=== PATIENT | female | born 1955 | race Caucasian/White ===

== ENCOUNTER 2018-01-28 18:51 | Emergency (ER) | payer OTHER ==
[~2018-01-28] VITALS: Ht 157.5 cm; Wt 51.0 kg
[~2018-01-28 18:51] MED LIST: ALL180 PO; ANT125 PO; ASPEC325 PO; BIOT1CAP3 PO; CHOL100010 PO; HYDR12.55 PO; INSDGI SC; MISCCAP80 PO; NVLGI SQ; PANT40TA PO; SCPTP TD
[2018-01-28 18:53] VITALS: TEMP 36.7
[2018-01-28 19:15] VITALS: O2SAT 97
[2018-01-28] MEDS ORDERED: FEXO1TAB46 PO (19:21)
[2018-01-28] MEDS ORDERED: NVLGI/PEN SC (19:21)
[2018-01-28] MEDS ORDERED: MECL1TAB40 PO (19:21)
[2018-01-28] MEDS ORDERED: SCOP1DIS17 TOP (19:21)
[2018-01-28] MEDS ORDERED: ASPI325T45 PO (19:21)
[2018-01-28] MEDS ORDERED: INSDGI SC (19:21)
--- NOTE | 2018-01-28 19:22 | EMERGENCY ROOM VISIT NOTE ---
History Report prepared by Christophe: Pallavi Shah Under the Supervision of: Dr. Grzegorz Olivas D.O. First contact with patient: 18:56 Chief Complaint: DIZZY Stated Complaint: HUMMING IN EARS,DIZZY Nursing Triage Summary: pt to the ED with c/o humming in her head which she thought was her cochlear implant and it kept getting louder so she took it off and it was still there. Sx started at 1730 and trouble with her balance all day no pain no numbness or tingling History of Present Illness The patient is a 62 year old female who presents to the Emergency Room with complaints of a constant humming in her left ear and dizziness beginning at 1730 today. She reports she was watching the TV, and the humming kept getting louder and louder. She thought it was her cochlear, so she took it out, but it was still there. She reports she checked her sugar and it was high. She stated that she had trouble with her balance earlier and feels very dizzy. She currently feels very weak and is having difficulty speaking. She denies any nausea or headaches. She states this does not feel like her vertigo episodes in the past. Source of History: patient Onset: 1730 today Position: ear (left), other (global) Quality: other (humming) Timing: constant Associated Symptoms: + weakness, No nausea Note: Positive difficulty speaking. Positive dizziness. Review of Systems See HPI for pertinent positives & negatives. A total of 10 systems reviewed and were otherwise negative. Past Medical & Surgical Medical Problems: (1) Acute cholecystitis (2) Diabetes (3) Heart disease (4) Hypertension (5) Schatzki's ring Family History Diabetes mellitus FH: heart disease FH: lung disease Hypertension Kidney disease Kidney stones Social History Smoking Status: Former Smoker Alcohol Use: none Drug Use: none Marital Status: Occupation Status: disabled Current/Historical Medications Scheduled Aspirin (Aspirin), 325 MG PO DAILY Fexofenadine Hcl (Evelyn), 180 MG PO DAILY Hydrochlorothiazide (Hydrochlorothiazide), 12.5 MG PO DAILY Insulin Aspart (Novolog Flexpen), 1 DOSE SC UD Insulin Glargine (Lantus), 20-25 UNITS SC QPM Pantoprazole (Protonix), 40 MG PO DAILY Scheduled PRN Meclizine Hcl (Meclizine Hcl), 12.5 MG PO Q6H PRN for Dizziness or Vertigo Scopolamine (Scopolamine), 1 MG TOP UD PRN for Dizziness or Vertigo Allergies Coded Allergies: Atorvastatin (Unverified Adverse Reaction, Unknown, UNKNOWN, 08/31/16) Prednisone (Unverified Adverse Reaction, Unknown, UNKNOWN, 08/31/16) Physical Exam Vital Signs Date Time Temp Pulse Resp B/P (MAP) Pulse Ox O2 Delivery O2 Flow Rate FiO2 01/28/18 21:37 72 20 149/79 98 Room Air 01/28/18 20:23 85 20 140/84 97 Room Air 01/28/18 20:07 73 01/28/18 19:15 97 Room Air 01/28/18 19:15 97 Room Air 01/28/18 18:53 36.7 102 20 174/108 97 Room Air Physical Exam GENERAL: Patient is awake, alert, and is mildly anxious appearing but comfortable. EYES: The conjunctivae are clear. The pupils are round and reactive. EARS, NOSE, MOUTH AND THROAT: The nose is without any evidence of any deformity. Mucous membranes are moist. Cochlear implant noted in the left posterior parietal scalp. NECK: The neck is nontender and supple. RESPIRATORY: Normal respiratory effort is noted there is no evidence of wheezing rhonchi or rales CARDIOVASCULAR: Regular rate and rhythm noted there no murmurs rubs or gallops normal S1 normal S2 GASTROINTESTINAL: The abdomen is soft. Bowel sounds are present in all quadrants. Abdomen is nontender MUSCULOSKELETAL/EXTREMITIES: There is no evidence of gross deformity full range of motion is noted in the hips and shoulders SKIN: There is no obvious evidence of any rash. There are no petechiae, pallor or cyanosis noted. NEUROLOGIC: Patient is awake alert and oriented x3 strength is symmetric, patellar tendon reflexes are 2+ bilaterally. No drift in the upper extremities. No facial droop was appreciated Medical Decision & Procedures ER Provider Diagnostic Interpretation: Radiology results as stated below per my review and radiologist interpretation: HEAD WITHOUT CONTRAST (CT) CLINICAL HISTORY: 62 years-old Female presenting with EVALUATE ALTERED MENTAL STATUS/WEAKNESS. TECHNIQUE: Multidetector CT imaging of the head was performed without the use of intravenous contrast. IV contrast: None. A dose lowering technique was used consistent with the principles of ALARA (as low as reasonably achievable). COMPARISON: Brain MR from 07/06/[address] head from 07/05/[address] DOSE (mGy.cm): The estimated cumulative dose is 537.48 mGy.cm. FINDINGS: Set Up [employer]ger topogram: Unremarkable. Streak artifact arising from the left cochlear implant mildly degrades image quality. Ventricles and sulci normal in size. Brain parenchyma normal in appearance with preserved villatoro-white differentiation. Calcifications noted in the bilateral basal ganglia, likely age-related changes. No mass effect or midline shift. No hemorrhage or acute territorial infarct. No extra-axial fluid collection. Paranasal sinuses and mastoid air cells clear. Calvarium intact. Left cochlear implant. IMPRESSION: 1. No acute intracranial abnormality. Electronically signed by: Fuentes Sevilla M.D. 01/28/2018 7:44 PM Dictated Date/Time: 01/28/2018 7:41 PM CHEST ONE VIEW PORTABLE CLINICAL HISTORY: 62 years-old Female presenting with EVALUATE ALTERED MENTAL STATUS/WEAKNESS. TECHNIQUE: Portable upright AP view of the chest was obtained. COMPARISON: 08/31/2016. FINDINGS: Atherosclerosis of the aortic arch. Cardiac silhouette normal in size. Lungs and pleural spaces clear. Osseous structures normal. Cholecystectomy clips noted. IMPRESSION: 1. No acute cardiopulmonary disease. Electronically signed by: Fuentes Sevilla M.D. 01/28/2018 7:24 PM Dictated Date/Time: 01/28/2018 7:23 PM Laboratory Results 01/28/18 19:25 Red Blood Count 4.65, Mean Corpuscular Volume 84.7, Mean Corpuscular Hemoglobin 29.7, Mean Corpuscular Hemoglobin Concent 35.0, Mean Platelet Volume 11.0, Neutrophils (%) (Auto) 49.7, Lymphocytes (%) (Auto) 40.1, Monocytes (%) (Auto) 6.3, Eosinophils (%) (Auto) 2.7, Basophils (%) (Auto) 0.9, Neutrophils # (Auto) 3.92, Lymphocytes # (Auto) 3.16, Monocytes # (Auto) 0.50, Eosinophils # (Auto) 0.21, Basophils # (Auto) 0.07 01/28/18 17:25 Test 01/28/18 17:25 01/28/18 19:25 01/28/18 19:49 01/28/18 20:50 Anion Gap 8.0 mmol/L (3-11) Est Creatinine Clear Calc Drug Dose 65.8 ml/min Estimated GFR () 106.5 Estimated GFR (Non- 91.9 BUN/Creatinine Ratio 23.6 (10-20) Calcium Level 9.3 mg/dl (8.5-10.1) Magnesium Level 2.0 mg/dl (1.8-2.4) Total Bilirubin 0.4 mg/dl (0.2-1) Direct Bilirubin 0.1 mg/dl (0-0.2) Aspartate Amino Transf (AST/SGOT) 13 U/L (15-37) Alanine Aminotransferase (ALT/SGPT) 19 U/L (12-78) Alkaline Phosphatase 101 U/L (45-117) Troponin I < 0.015 ng/ml (0-0.045) Total Protein 8.1 gm/dl (6.4-8.2) Albumin 4.1 gm/dl (3.4-5.0) Beta-Hydroxybutyric Acid 1.00 mg/dL (0.2-2.81) Thyroid Stimulating Hormone (TSH) 1.920 uIu/ml (0.300-4.500) White Blood Count 7.88 K/uL (4.8-10.8) Red Blood Count 4.65 M/uL (4.2-5.4) Hemoglobin 13.8 g/dL (12.0-16.0) Hematocrit 39.4 % (37-47) Mean Corpuscular Volume 84.7 fL (80-100) Mean Corpuscular Hemoglobin 29.7 pg (25-34) Mean Corpuscular Hemoglobin Concent 35.0 g/dl (32-36) Platelet Count 228 K/uL (130-400) Mean Platelet Volume 11.0 fL (7.4-10.4) Neutrophils (%) (Auto) 49.7 % Lymphocytes (%) (Auto) 40.1 % Monocytes (%) (Auto) 6.3 % Eosinophils (%) (Auto) 2.7 % Basophils (%) (Auto) 0.9 % Neutrophils # (Auto) 3.92 K/uL (1.4-6.5) Lymphocytes # (Auto) 3.16 K/uL (1.2-3.4) Monocytes # (Auto) 0.50 K/uL (0.11-0.59) Eosinophils # (Auto) 0.21 K/uL (0-0.5) Basophils # (Auto) 0.07 K/uL (0-0.2) RDW Standard Deviation 39.5 fL (36.4-46.3) RDW Coefficient of Variation 12.8 % (11.5-14.5) Immature Granulocyte % (Auto) 0.3 % Immature Granulocyte # (Auto) 0.02 K/uL (0.00-0.02) Prothrombin Time 10.6 SECONDS (9.0-12.0) Prothromb Time International Ratio 1.0 (0.9-1.1) Activated Partial Thromboplast Time 28.9 SECONDS (21.0-31.0) Partial Thromboplastin Ratio 1.1 Bedside Glucose 105 mg/dl (70-90) Venous Blood pH 7.38 (7.36-7.41) Venous Blood Partial Pressure CO2 52 mmHg (38.0-50.0) Venous Blood Partial Pressure O2 24 mmHg Venous Blood HCO3 31 mmol/L Venous Blood Oxygen Saturation < 60.0 % Venous Blood Base Excess 4.3 mEq/L Urine Color YELLOW Urine Appearance CLEAR (CLEAR) Urine pH 6.5 (4.5-7.5) Urine Specific Mcdonald 1.008 (1.000-1.030) Urine Protein NEG (NEG) Urine Glucose (UA) NEG (NEG) Urine Ketones NEG (NEG) Urine Occult Blood NEG (NEG) Urine Nitrite NEG (NEG) Urine Bilirubin NEG (NEG) Urine Urobilinogen NEG (NEG) Urine Leukocyte Esterase SMALL (NEG) Urine WBC (Auto) 1-5 /hpf (0-5) Urine RBC (Auto) 0-4 /hpf (0-4) Urine Hyaline Casts (Auto) 0 /lpf (0-5) Urine Epithelial Cells (Auto) 10-20 /lpf (0-5) Urine Bacteria (Auto) NEG (NEG) Laboratory results per my review. ECG Per My Interpretation Indication: weakness Rate (beats per minute): 88 Rhythm: other (atrial pacemaker) Findings: other (some [place] beats are noted, nonconductive pacer spikes are noted, no PVCs, inferior ST depressions noted) Comparison ECG Date: 09/10/16 Change: no significant change ED Course 1904: The patient was evaluated in room C9. A complete history and physical examination were performed. 2044: Upon reevaluation, the patient is feeling better. I discussed the results and treatment plan with her. She verbalized agreement of the treatment plan. She was discharged home. Medical Decision Prior records/ancillary studies reviewed. Triage Nursing notes reviewed. The patient's history was concerning for dizziness and vertigo. Differential diagnosis: Etiologies such as benign positional vertigo, dehydration, hypovolemia, anemia, tumor, infection, hypoglycemia, electrolyte abnormalities, cardiac sources, intracerebral event, toxicologic, neurologic, as well as others were entertained. The patient is a 62-year-old female who presented to the emergency department for an evaluation of dizziness. The patient describes an episode of tinnitus which was on the side of her cochlear implant. She describes it as a loud home. The patient's symptoms have improved at this time. She has no focal neurologic deficits. I discussed the patient's laboratory and radiographic studies with her. I discussed some of the causes of vertigo including peripheral versus central causes of vertigo. She was encouraged to continue all medications as prescribed and call her primary care physician in the morning. She was also encouraged to discuss her condition with her primary physician who placed the cochlear implant. I also encouraged her to return the emergency department immediately if symptoms change worsen or the need arise. Medication Reconcilliation Current Medication List: was personally reviewed by me Blood Pressure Screening Patient's blood pressure: Elevated blood pressure Blood pressure disposition: Referred to PCP Impression Primary Impression: Vertigo Scribe Attestation The scribe's documentation has been prepared under my direction and personally reviewed by me in its entirety. I confirm that the note above accurately reflects all work, treatment, procedures, and medical decision making performed by me. Departure Information Dispostion Home / Self-Care Referrals Grazyna Cotton M.D. (PCP) Forms HOME CARE DOCUMENTATION FORM, IMPORTANT VISIT INFORMATION Patient Instructions [facility] Additional Instructions Continue all medications as prescribed. Rest and avoid any strenuous activity. Call your primary care physician in the morning to schedule a follow-up appointment. I would also recommend calling your primary physician who is in charge of your cochlear implant to discuss the symptoms. Return to the emergency department immediately if symptoms change worsen or the need arises.
[2018-01-28 19:24] VITALS: Ht 157.5 cm; Wt 51.0 kg
--- NOTE | 2018-01-28 19:26 | DIAGNOSTIC IMAGING REPORT ---
CHEST ONE VIEW PORTABLE CLINICAL HISTORY: 62 years-old Female presenting with EVALUATE ALTERED MENTAL STATUS/WEAKNESS. TECHNIQUE: Portable upright AP view of the chest was obtained. COMPARISON: 08/31/2016. FINDINGS: Atherosclerosis of the aortic arch. Cardiac silhouette normal in size. Lungs and pleural spaces clear. Osseous structures normal. Cholecystectomy clips noted. IMPRESSION: 1. No acute cardiopulmonary disease. Electronically signed by: Fuentes Sevilla M.D. 01/28/2018 7:24 PM Dictated Date/Time: 01/28/2018 7:23 PM
[2018-01-28 19:37] LABS: BASO % 0.9 %; BASO ABS # 0.07 K/uL (0-0.2); EOS % 2.7 %; EOS ABS # 0.21 K/uL (0-0.5); HEMATOCRIT 39.4 % (37-47); HEMOGLOBIN 13.8 g/dL (12.0-16.0); IG# 0.02 K/uL (0.00-0.02); LYMPH % 40.1 %; LYMPH ABS # 3.16 K/uL (1.2-3.4); MEAN CELL VOLUME 84.7 fL (80-100); MEAN CORPUSCULAR HEMOGLOBIN 29.7 pg (25-34); MONO % 6.3 %; NEUT % 49.7 %; NEUT ABS # 3.92 K/uL (1.4-6.5); PLATELET COUNT 228 K/uL (130-400); RED CELL DISTRIBUTION WIDTH CV 12.8 % (11.5-14.5); RED CELL DISTRIBUTION WIDTH SD 39.5 fL (36.4-46.3); WHITE BLOOD COUNT 7.88 K/uL (4.8-10.8)
--- NOTE | 2018-01-28 19:45 | DIAGNOSTIC IMAGING REPORT ---
HEAD WITHOUT CONTRAST (CT) CLINICAL HISTORY: 62 years-old Female presenting with EVALUATE ALTERED MENTAL STATUS/WEAKNESS. TECHNIQUE: Multidetector CT imaging of the head was performed without the use of intravenous contrast. IV contrast: None. A dose lowering technique was used consistent with the principles of ALARA (as low as reasonably achievable). COMPARISON: Brain MR from 07/06/[address] head from 07/05/[address] DOSE (mGy.cm): The estimated cumulative dose is 537.48 mGy.cm. FINDINGS: Maintenance Representative topogram: Unremarkable. Streak artifact arising from the left cochlear implant mildly degrades image quality. Ventricles and sulci normal in size. Brain parenchyma normal in appearance with preserved villatoro-white differentiation. Calcifications noted in the bilateral basal ganglia, likely age-related changes. No mass effect or midline shift. No hemorrhage or acute territorial infarct. No extra-axial fluid collection. Paranasal sinuses and mastoid air cells clear. Calvarium intact. Left cochlear implant. IMPRESSION: 1. No acute intracranial abnormality. Electronically signed by: Fuentes Sevilla M.D. 01/28/2018 7:44 PM Dictated Date/Time: 01/28/2018 7:41 PM
[2018-01-28 19:49] LABS: PTT PATIENT 28.9 SECONDS (21.0-31.0)
[2018-01-28 19:55] LABS: ALBUMIN 4.1 gm/dl (3.4-5.0); ALT/SGPT 19 U/L (12-78); AST/SGOT 13 U/L (15-37); BLOOD UREA NITROGEN 17 mg/dl (7-18); CALCIUM 9.3 mg/dl (8.5-10.1); CARBON DIOXIDE 28 mmol/L (21-32); CREATININE 0.71 mg/dl (0.60-1.20); GLUCOSE 106 mg/dl (70-99); POTASSIUM 3.4 mmol/L (3.5-5.1); SODIUM 136 mmol/L (136-145)
[2018-01-28 20:05] LABS: ALKALINE PHOSPHATASE 101 U/L (45-117); TOTAL PROTEIN 8.1 gm/dl (6.4-8.2)
[2018-01-28 21:37] VITALS: BP 149/79; PULSE 72; O2SAT 98
== END 2018-01-28 21:48 | disposition home or self-care (01) ==
LOC: C.EDB 18:52 → C.EDC 21:48
DX: R42 Dizziness and giddiness (principal); R53.1 Weakness; E11.9 Type 2 diabetes mellitus without complications; I10 Essential (primary) hypertension; Z79.82 Long term (current) use of aspirin; Z79.4 Long term (current) use of insulin; Z79.899 Other long term (current) drug therapy; Z88.8 Allergy status to other drugs, medicaments and biological substances; Z87.891 Personal history of nicotine dependence; Z96.21 Cochlear implant status

== ENCOUNTER 2020-05-14 11:49 | Inpatient (IN) ==
[2020-05-14] MEDS ORDERED: SODIUM CHLORIDE 0.9% 500 ML IV ONE (12:05)
--- NOTE | 2020-05-14 12:13 | XRay Report ---
XR chest 1V portable CLINICAL HISTORY: Chest Pain dyspnea COMPARISON STUDY: 01/28/2018 FINDINGS: The bones soft tissues and hemidiaphragms are normal. The cardiomediastinal silhouette is n ormal. The lungs are clear. The pulmonary vasculature is normal. IMPRESSION: Negative chest. ACT 112: Negative or not required by law. The above report was generated using voice recognition software. It may contain grammatical, syntax or spelling errors. Electronically signed by: Juan Jose Washington M.D. 05/14/2020 12:12 PM
[2020-05-14 12:28] LABS: Basophils # (auto) 0.08 K/uL (0-0.2); Basophils % (auto) 1.2 %; Eosinophils # (auto) 0.21 K/uL (0-0.5); Hematocrit (blood only) 38.7 % (37-47); Hemoglobin 12.9 g/dL (12.0-16.0); Immature Granulocytes # (auto) 0.01 K/uL (0.00-0.02); Immature Granulocytes % (auto) 0.1 %; Lymphocytes # (auto) 3.19 K/uL (1.2-3.4); Lymphocytes % (auto) 45.9 %; Mean Corpuscular Hemoglobin 29.3 pg (25-34); Mean Corpuscular Hgb Conc 33.3 g/dL (32-36); Mean Corpuscular Volume 87.8 fL (80-100); Mean Platelet Volume 11.7 fL (7.4-10.4); Monocytes # (auto) 0.36 K/uL (0.11-0.59); Monocytes % (auto) 5.2 %; Neutrophils % (auto) 44.6 %; Platelet Count 262 K/uL (130-400); RDW Coefficient of Variation 12.5 % (11.5-14.5); RDW Standard Deviation 40.3 fL (36.4-46.3); Red Blood Count 4.41 M/uL (4.2-5.4); White Blood Count 6.95 K/uL (4.8-10.8)
[2020-05-14 12:37] LABS: Partial Thromboplastin Ratio 1.1; Partial Thromboplastin Time 29.9 Seconds (21.0-31.0); Prothrombin Time 10.4 Seconds (9.0-12.0)
[2020-05-14 12:49] LABS: Albumin Level 3.7 gm/dl (3.4-5.0); BUN Creatinine Ratio 23.3 (10-20); Creatinine Clr Calc Pharmacy 58.8 ml/min; Est GFR (African American) 89.6; Est GFR (Non-African American) 77.3; Magnesium 1.8 mg/dl (1.8-2.4); Potassium 4.6 mmol/L (3.5-5.1)
[2020-05-14 13:00] LABS: Albumin Globulin Ratio 0.9 (0.9-2); Bilirubin,Total 0.4 mg/dl (0.2-1); Globulin 4.2 gm/dl (2.5-4.0); Phosphorus 1.9 mg/dl (2.5-4.9); Thyroid Stimulating Hormone 2.06 uIu/ml (0.300-4.500); Total Protein 7.9 gm/dl (6.4-8.2); Troponin I 0.017 ng/ml (0-0.045)
--- NOTE | 2020-05-14 13:41 | Electrocardiogram Report ---
Test Reason : Blood Pressure : / mmHG Vent. Rate : 096 BPM Atrial Rate : 096 BPM P-R Int : 114 ms QRS Dur : 080 ms QT Int : 346 ms P-R-T Axes : 064 -33 146 degrees QTc Int : 437 ms Poor data quality, interpretation may be adversely affected Normal sinus rhythm Left axis deviation Septal infarct (cited on or before 14-MAY-2020) Abnormal ECG When compared with ECG of 28-JAN-2018 19:19, Serial changes of Septal infarct Present Confirmed by Grzegorz Saucedo ([id number]) on 05/14/2020 1:40:55 PM Referred By: Confirmed By:Grzegorz Saucedo
[2020-05-14] MEDS ORDERED: POTASSIUM PHOS 3 MMOL/1 ML INFUSION IV STA (13:42)
[2020-05-14] MEDS ORDERED: POTASSIUM PHOSPHATE 9 MMOL in SODIUM CHLORIDE 0.9% 250 ML IV ONE (14:30)
[2020-05-14] MEDS ORDERED: OPTIRAY 320 125ml IV PRN (14:38)
--- NOTE | 2020-05-14 14:40 | CT Scan Report ---
CT head/brain wo con CT DOSE: HISTORY: dysarthria/aphasia TECHNIQUE: Multiaxial CT images of the head were performed without the use of intravenous contrast. A dose lowering technique was utilized adhering to the principles of ALARA. Comparison: None. Findings: The paranasal sinuses and mastoid air cells are clear. The calvarium and skull base are int act. The ventricles and sulci are within normal limits. There is no mass, hematoma, midline shift, or acute infarct. Impression: No acute intracranial abnormality. Age-related atrophy and chronic small vessel change ACT 112: Negative or not required by law. The above report was generated using voice recognition software. It may contain grammatical, syntax or spelling errors. Electronically signed by: Juan Jose Washington M.D. 05/14/2020 2:37 PM
--- NOTE | 2020-05-14 14:41 | CT Scan Report ---
CT angio head w con HISTORY: aphsasia, dysarthria TECHNIQUE: Multiaxial CT angiography of the head was performed IV contrast: 119 cc nonionic Maximu m intensity projection images were also obtained. A dose lowering technique was utilized adhering to the principles of ALARA. COMPARISON: None. FINDINGS: There is no mass, hematoma, midline shift, or acute infarct. Visualized intracranial international affairs vice president al carotid arteries, distal vertebral arteries, and basilar artery are widely patent. There is no sig nificant stenosis, occlusion, or aneurysm seen within the bilateral ACAs, MCAs, or wire repairer. IMPRESSION: No significant stenosis, occlusion, or aneurysm within the [place]. ACT 112: Negative or not required by law. The above report was generated using voice recognition software. It may contain grammatical, syntax or spelling errors. Electronically signed by: Juan Jose Washingtno M.D. 05/14/2020 2:39 PM
--- NOTE | 2020-05-14 14:43 | CT Scan Report ---
CT angio neck with con HISTORY: Mental status change dysarthria, aphasia TECHNIQUE: Multiaxial CT angiography of the neck was performed IV contrast: None. All measurements w ere calculated based on NASCET criteria. Maximum intensity projection images were also obtained. A dose lowering technique was utilized adhering to the principles of ALARA. COMPARISON STUDY: None. FINDINGS: The aortic arch and proximal great vessels are widely patent. There is no significant sten osis, occlusion, or dissection identified within the bilateral common carotid, internal carotid, or v ertebral arteries. IMPRESSION: No significant stenosis, occlusion, or dissection identified within the carotid or vertebral arteries . Mild scattered plaque formation ACT 112: Negative or not required by law. The above report was generated using voice recognition software. It may contain grammatical, syntax or spelling errors. Electronically signed by: Juan Jose Washington M.D. 05/14/2020 2:41 PM
--- NOTE | 2020-05-14 14:46 | CT Scan Report ---
CT angio chest PE protocol CT DOSE: HISTORY: Chest pain PE TECHNIQUE: Multiaxial CT images of the chest were performed following the intravenous administration of contrast to evaluate the pulmonary arteries. Maximal intensity projection images were also obtaine d. A dose lowering technique was utilized adhering to the principles of ALARA. COMPARISON STUDY: None. FINDINGS: There is a normal caliber thoracic aorta with no evidence for dissection. There is no evide nce for pulmonary embolus. No pleural effusions. No pneumothorax. The liver and spleen are unremarkab le. No mediastinal or hilar lymphadenopathy. The central airways are patent. The lungs are clear. Minimal nodularity and/or atelectatic change of the inferior lingula. This is unchanged from the prio r study. IMPRESSION: 1. No evidence for pulmonary embolus. 2. Scattered left and to a lesser extent right basilar atelectatic/nodular change considered stable. ACT 112: Negative or not required by law. The above report was generated using voice recognition software. It may contain grammatical, syntax or spelling errors. Electronically signed by: Juan Jose Washington M.D. 05/14/2020 2:45 PM
--- NOTE | 2020-05-14 16:36 | History & Physical Report ---
Date of Service May 14, 2020 Assessment & Plan (1) Chest pain: This is a 64-year-old female who has significant past medical history of type 1 diabetes mellitus, polyneuropathy, MELAS follows Dr. Larson, history of TIA, Mnire's disease, sensorineural hearing loss with cochlear implant in place, HTN, HLD who presents to ED secondary to chest pain x30 minutes prior to arrival. In ED patient did remain hemodynamically stable. She was mildly tachycardic. Upon initial evaluation she was hypertensive BP 177/79. Upon return from CAT scan she also was tachycardic and tachypneic, but this has since resolved. Her CBC was generally unremarkable, mildly elevated BUN 19 creatinine 0.81, glucose 249, [place] 1.9, troponin 0.017, proBNP 40, lipase 140, TSH 2.06. Chest x-ray, head and neck CTA were negative for acute abnormality. Head CT was negative for acute abnormality, chronic microvascular disease noted. EKG revealed normal sinus rhythm heart rate 96, Septal infarct. Pt was tender to palpation along anterior L chest wall below breast, pinpoint tenderness. CT chest/CXR does not reveal acute rib pathology Ddx: intercostal muscle strain, anxiety, ACS, acclerated HTN, MELAS, GERD, hypo/hyperglycemia among other etiologies admit to med tele cycle troponin, ecg obtain echocardiogram incentive spirometer heat application prn to L chest wall monitor on tele monitor blood pressure hold on consulting cardiology at this time - if troponin elevated or abn echo would consult (2) Dysarthria: sx have since resolved - ddx: TIA, MELAS, anxiety among others sx of dysarthria, word finding difficulty, fatigue and "fogginess," started with acute onset chest pain Initial head CT negative for acute intracranial abnormality, chronic microvascular disease noted Head and neck CTA WNL Unable to obtain MRI given cochlear implant consult Neurology - discussed with Dr. Larsen Continue ASA 325mg daily for now, statin in tolerant repeat Head CT in a.m. lipid panel/a1c in a.m. (3) Hypophosphatemia: phos 1.9 replaced 9mmol K phos repeat phos (4) Type 1 diabetes mellitus: with hyperglycemia - pt did not take novolog with breakfast Last A1c 7.6 08/28/2019 Obtain A1c in a.m. Lantus/NovoLog per protocol (5) Atherosclerosis of coronary artery: hx of L heart cath 2019 revealed 30% proximal LAD stenosis Follows [facility] cardiology Statin intolerant -per last cardiology note PKS9 inhibitor being considered continue ASA (6) Hypertension: Blood pressure significantly elevated in ED upon arrival Likely in setting of pain, anxiety She does have a formal diagnosis of hypertension but not on any oral antihypertensives Monitor closely (7) MELAS (mitochondrial encephalopathy, lactic acidosis and stroke-like episodes): Follows [facility] neurology Symptoms of dysarthria, fogginess and word finding difficulty have since resolved May be attributed to MELAS vs. stress induced dysarthria in setting of pain vs anxiety, vs TIA (8) History of TIA (transient ischemic attack): hx of TIA in past x 2 follows [facility] neurology continue ASA as above (9) HLD (hyperlipidemia): Last lipid panel 12/23/2019 total cholesterol 237, HDL 46, LDL 131, triglycerides 300 Statin intolerant Obtain lipid panel in a.m. Patient follows [facility] cardiology-they are considering PKS9 inhibitor (10) DVT prophylaxis: SQ Heparin Disposition: admit to med tele Follow up: PCP Dr. Jose Ramirez upon discharge Pt was seen and examined in collaboration with Dr. Aparicio, please see addendum History of Present Illness Chief Complaint: Chest pain x30 minutes prior to arrival. Primary Care Provider: Amairani Ramirez MD This is a 64-year-old female who has significant past medical history of type 1 diabetes mellitus, polyneuropathy, MELAS follows Dr. Larson, history of TIA, Mnire's disease, sensorineural hearing loss with cochlear implant in place, HTN, HLD who presents to ED secondary to chest pain x30 minutes prior to arrival. She states that she was outside trying to move a tarp for feel to be delivered. When she pulled on that sharp to move it she developed significant sharp substernal, left-sided chest pain that radiated down left arm with associated numbness and tingling. She also had associated shortness of breath, dysarthria, "feeling foggy," dizziness, and very fatigued. She immediately went inside and took a full dose aspirin and called her son to call EMS. Symptoms lasted for approximately 20 to 30 minutes before resolving. Upon arrival to ED she was chest pain-free, although she still felt like she was dysarthric and was having trouble with word finding. She did go over for CT evaluation and immediately after CT with mask on the chest pain returned with associated shortness of breath. Daughter at bedside felt this was secondary to, "anxiety attack." He has never had anxiety attack in the past but symptoms resolved within 20 minutes from returning to ED room. She denies any recent illness, fever, chills, sweats, syncope, lightheaded, R[place], orthopnea, PND, heart palpitations, cough, hemoptysis, nausea, emesis, abdominal pain, change in bowel or urinary habits. Prior to today's event she denies any chest pain or dyspnea on exertion. She states she occasionally gets numbness and tingling in hands secondary to neuropathy but has never had chest pain as severe as this. She denies hearing any pop after pulling a tarp. She currently does live alone and is insulin-dependent diabetic. She last took Lantus last evening but has not taken any short acting insulin this morning. Last meal was at breakfast. She denies any recent weight gain, loss or edema. Her appetite is otherwise been at baseline. She does elicit history of multiple TIAs in the past in which she follows with [facility] neurology. She does have known MELAS as does her daughter. + FH of CAD with father suffering NV in 50s and mother in her 70s. Also of significance patient did have a fall 2 weeks prior. In ED patient did remain hemodynamically stable. She was mildly tachycardic. Upon initial evaluation she was hypertensive BP 177/79. Upon return from CAT scan she also was tachycardic and tachypneic, but this has since resolved. Her CBC was generally unremarkable, mildly elevated BUN 19 creatinine 0.81, glucose 249, [place] 1.9, troponin 0.017, proBNP 40, lipase 140, TSH 2.06. Chest x-ray, head and neck CTA were negative for acute abnormality. Head CT was negative for acute abnormality, chronic microvascular disease noted. EKG revealed normal sinus rhythm heart rate 96, Septal infarct. Allergies Allergy/AdvReac Type Severity Reaction Status Date / Time atorvastatin AdvReac Unknown UNKNOWN Unverified 05/14/20 13:24 prednisone AdvReac Unknown UNKNOWN Unverified 05/14/20 13:24 Home Medications Home Medications Medication Instructions Recorded Confirmed Type aspirin 325 mg PO QAM 05/14/20 05/14/20 History fexofenadine-pseudoephedrine 1 tab PO QAM 05/14/20 05/14/20 History [Evelyn-D 24 Hour] insulin aspart U-100 [Novolog 2 - 4 unit SUBCUT AC 05/14/20 05/14/20 History Flexpen U-100 Insulin] insulin glargine [Lantus Solostar 10 - 20 unit SUBCUT PM 05/14/20 05/14/20 History U-100 Insulin] vit [id number] 1 cap PO QAM 05/14/20 05/14/20 History [[employer]] Past Med/Surg History Medical History (Updated 05/14/20 @ 17:10 by Paradise Guerra PA-C) Atherosclerosis of coronary artery History of TIA (transient ischemic attack) HLD (hyperlipidemia) Hypertension (Chronic) Macular degeneration MELAS (mitochondrial encephalopathy, lactic acidosis and stroke-like episodes) Mnire's disease Schatzki's ring Statin intolerance Type 1 diabetes mellitus Surgical History (Updated 05/14/20 @ 17:01 by Paradise Guerra PA-C) History of cholecystectomy History of cochlear implant Left in 2014 History of colonoscopy with polypectomy History of hysterectomy History of left heart catheterization 07/2019 which revealed 30% proximal LAD otherwise clean coronaries Family History Mother Coronary heart disease, Onset Age: 70 Father Coronary heart disease, Onset Age: 50 Social History (Updated 05/14/20 @ 17:02 by Paradise Guerra PA-C) Preferred Language: Lao Communication Ability: Effective Hearing Ability: Cochlear Implant Non Clinical Advisor Required: No Beliefs That Will Affect Care: None marital status: Current Living Situation: Alone current occupational status: disabled Other Information That Helps Us Care for You: No Feels Safe at Home: Yes Safety Concerns: Feels Safe At This Time Smoking Status: Former smoker Do You Dip or Chew Tobacco: No ; Second Hand Exposure: No ; Tobacco Cessation Education Requested by Patient: No Hx Alcohol Use: No Hx Substance Use: No Review of Systems Review of Systems: All systems reviewed & are unremarkable except as noted in HPI & below Physical Exam Physical Exam: Constitutional: Petite, female, WD/WN, vitals as above, NAD, sitting up in bed, pleasant, conversing easily Head: Normocephalic, Atraumatic Eyes: PERRL, conjunctivae normal, anicteric sclerae ENMT: Positive hearing device in place, external ear and nose normal, oropharynx normal Neck: trachea midline, no thyromegaly normal visual inspection Respiratory: Tachypnea RR 26, lungs clear to auscultation, right base crackle, otherwise no wheeze or rhonchi noted. No accessory muscle use Cardiovascular: RRR, no murmur, no edema Vessels: no JVD or carotid bruit Chest: normal inspection of chest, pain to palpation to left chest wall inferior to left breast, no erythema or rash noted Abdomen: normal bowel sounds, soft, nontender, no hepatosplenomegaly Musculoskeletal: no cyanosis or clubbing, extremities motor strength 5/5 Skin: no rashes, warm and dry normal turgor, healing 1 cm laceration above le ft eyebrow Neurologic: PERRL, EOMI, accommodation nl, no face palsy, no dysarthria CN's II-XI intact bilaterally and moves all extremities Psychiatric: A+Ox3, euthymic affect Lymphatic: no cervical or axillary lymphadenopathy : deferred Results & Data Results & Data ([facility]) Vital Signs (Past 12 Hours) Vital Signs Temp Pulse Pulse Resp BP BP Pulse Ox 05/14/20 15:45 93 H 18 134/80 99 05/14/20 14:35 129 H 30 H 152/91 H 98 05/14/20 14:11 83 20 157/99 H 98 05/14/20 12:33 85 24 142/86 H 96 05/14/20 12:03 36.7 C 65 20 177/79 H 95 Laboratory Results 05/14/20 05/14/20 05/14/20 Range/Units 12:15 12:15 12:15 WBC 6.95 (4.8-10.8) K/uL RBC 4.41 (4.2-5.4) M/uL Hgb 12.9 (12.0-16.0) g/dL Hct 38.7 (37-47) % MCV 87.8 (80-100) fL MCH 29.3 (25-34) pg MCHC 33.3 (32-36) g/dL RDW Std Deviation 40.3 (36.4-46.3) fL RDW Coeff of Marj 12.5 (11.5-14.5) % Plt Count 262 (130-400) K/uL MPV 11.7 H (7.4-10.4) fL Immature Gran % (Auto) 0.1 % Neut % (Auto) 44.6 % Lymph % (Auto) 45.9 % [place] % (Auto) 5.2 % Eos % (Auto) 3.0 % Baso % (Auto) 1.2 % Immature Gran # (Auto) 0.01 (0.00-0.02) K/uL Neut # (Auto) 3.10 (1.4-6.5) K/uL Lymph # (Auto) 3.19 (1.2-3.4) K/uL [place] # (Auto) 0.36 (0.11-0.59) K/uL Eos # (Auto) 0.21 (0-0.5) K/uL Baso # (Auto) 0.08 (0-0.2) K/uL PT 10.4 (9.0-12.0) Seconds INR 1.0 (0.9-1.1) APTT 29.9 (21.0-31.0) Seconds PTT Ratio 1.1 Sodium 136 (136-145) mmol/L Potassium 4.6 (3.5-5.1) mmol/L Chloride 104 (98-107) mmol/L Carbon Dioxide 22 (21-32) mmol/L Anion Gap 10.0 (3-11) BUN 19 H (7-18) mg/dl Creatinine 0.81 (0.6-1.2) mg/dl Est Cr Clr Drug Dosing 58.8 ml/min Est GFR ( Amer) 89.6 Est GFR (Non-Af Amer) 77.3 BUN/Creatinine Ratio 23.3 H (10-20) Glucose 249 H (70-99) mg/dl Calcium 9.0 (8.5-10.1) mg/dl Phosphorus 1.9 L (2.5-4.9) mg/dl Magnesium 1.8 (1.8-2.4) mg/dl Total Bilirubin 0.4 (0.2-1) mg/dl AST 15 (15-37) U/L ALT 18 (12-78) U/L Alkaline Phosphatase 96 (45-117) U/L Troponin I 0.017 (0-0.045) ng/ml NT-Pro-B Natriuret Pep 40 (0-900) pg/ml Total Protein 7.9 (6.4-8.2) gm/dl Albumin 3.7 (3.4-5.0) gm/dl Globulin 4.2 H (2.5-4.0) gm/dl Albumin/Globulin Ratio 0.9 (0.9-2) Lipase 140 (73-393) U/L TSH 2.060 (0.300-4.500) uIu/ml Diagnostic Findings CXR: IMPRESSION: Negative chest. Chest CTA: IMPRESSION: 1. No evidence for pulmonary embolus. 2. Scattered left and to a lesser extent right basilar atelectatic/nodular change considered stable. Head CT: Impression: No acute intracranial abnormality. Age-related atrophy and chronic small vessel change Head/Neck CTA: IMPRESSION: No significant stenosis, occlusion, or aneurysm within the [place]. No significant stenosis, occlusion, or dissection identified within the carotid or vertebral arteries. Mild scattered plaque formation Medications Administered Ioversol (Optiray 320 125ml) 119 ml IV ONCE PRN PRN Reason: Interaction Checking Stop: 05/18/20 14:37 Last Admin: 05/14/20 14:38 Dose: 119 ml Documented by: [id number] Discontinued Medications Sodium Chloride (Nss) 500 mls @ 999 mls/hr IV .Q31M ONE Stop: 05/14/20 12:35 Last Infusion: 05/14/20 13:03 Dose: 0 mls/hr Documented by: [id number] Admin: 05/14/20 12:30 Dose: 999 mls/hr Documented by: [id number] Potassium Phosphate 9 mmol/ (Sodium Chloride) 253 mls @ 130 mls/hr IV ONE ONE Stop: 05/14/20 16:26 Last Admin: 05/14/20 14:43 Dose: 130 mls/hr Documented by: [id number] Potassium Phosphate (Potassium Phosphate Replace) 9 mmol IV NOW STA Stop: 05/14/20 13:43 Last Admin: 05/14/20 16:15 Dose: Not Given Documented by: [id number] ECG Rate (beats per minute): 96 Rhythm: normal sinus Additional Comments: poor r wave progression, septal infarct noted Code Status & VTE Plan Code Status Full Code VTE Prophylaxis Plan VTE Prophylaxis will be ordered: Yes Supervising Physician Co-Signing Physician Notes Patient is a 63-year-old female with history of type 1 diabetes mellitus, TIA, sensorineural hearing loss with cochlear implant, hypertension, hyperlipidemia and other medical problems presents with history of chest pain which is substernal and left-sided radiating to left arm associated with numbness and tingling. She also reported shortness of breath, dysarthria and dizziness. Chest pain currently resolved while in ED. Please review HPI for complete details of presentation. Head CT, head and neck CT head showed no acute process. Chest CTA showed no PE. EKG showed normal sinus rhythm, left axis deviation and serial changes of septal infarct. Second troponin elevated at 0.2. On exam patient is thin, no apparent distress, normocephalic atraumatic, lungs are clear to auscultation, normal breath sounds, S1-S2, no murmur, tachycardic, abdomen soft, nontender, normal bowel sounds, no pedal edema, gross ly no focal neurological deficits. Patient is admitted for management of chest pain rule out ACS. Also to rule out acute CVA. Patient is started on IV heparin and will be kept n.p.o. after midnight. Cardiology consulted. Continue aspirin. Check lipid panel, echo. Trend cardiac enzymes. Could not obtain MRI of the brain given cochlear implant. Will repeat CT head tomorrow. Neurology consulted. Phosphorus replaced for hypophosphatemia. I personally reviewed the record. Patient is interviewed and examined at bedside. Patient's care is coordinated with Paradise Guerra PA-C. Please refer to the documentation above for details of patient's presentation and for discussion of other issues.
[2020-05-14] MEDS ORDERED: MAGNESIUM HYDROXIDE SUSP 30 ML UDC PO PRN (17:43)
[2020-05-14] MEDS ORDERED: NITROGLYCERIN SL 0.4 MG/TAB TAB SL PRN (17:43)
[2020-05-14] MEDS ORDERED: GLUCOSE 40% GEL 15 GM TUBE PO PRN (17:43)
[2020-05-14] MEDS ORDERED: GLUCAGON FOR INJ 1 MG VIAL SQ PRN (17:43)
[2020-05-14] MEDS ORDERED: DEXTROSE 50% 50 ML SYRINGE IV PRN (17:43)
[2020-05-14] MEDS ORDERED: ALUMINUM/MAGNESIUM SUSP 30 ML UDC PO PRN (17:43)
[2020-05-14] MEDS ORDERED: ONDANSETRON INJ 2 MG/ML 2 ML VIAL IV PRN (17:43)
[2020-05-14] MEDS ORDERED: CARBOHYDRATES FOR HYPOGLYCEMIA PO PRN (17:43)
[2020-05-14] MEDS ORDERED: POLYETHYLENE (MIRALAX) 17 GM PACK PO PRN (17:43)
[2020-05-14] MEDS ORDERED: GLUCOSE 10 TABS/TUBE PO PRN (17:43)
--- NOTE | 2020-05-14 18:12 | Emergency Department Note ---
Impression & Plan Substernal chest pain, Dysarthria, MELAS (mitochondrial encephalopathy, lactic acidosis and stroke-like episodes), Hypophosphatemia ED Provider Note NAME: WINNIE DONG AGE: 64 SEX: F ARRIVES VIA: Ambulance INFORMANT: Patient, ED PROVIDER(S): Mainor Frazier MD CHIEF COMPLAINT: Chest pain, Difficulty speaking. PLAN: Disposition: Admit MEDICAL DECISION MAKING: The patient is a pleasant 64-year-old woman with a past medical meniere's disease, sensorineural hearing loss with cochlear implant, hypertension, hyperlipidemia, diabetes with plolyneuropathy, MELAS and h/o TIA who presents emergency department BIBA accomapanied by daughter at bedside for evaluation of acute onset of chest pain that occurred abruptly prior to arrival when the patient was at rest. Subsequent to this episode she did report feeling "off and felt as though it was difficult for her to speak". Patient was evaluated by EMS and given aspirin where she reported resolution of her pain. Prior to today she denies fevers, chills, cough, congestion, n/v/d, urinary sx. On arrival the patient is slightly anxious appearing but no acute distress, afebrile stable vital signs. She appears clinically dry. She has subtle difficulty with articulation of words but no overt dysarthria or word finding difficulty. She has no focal neuro deficits otherwise. Given given constellation of symptoms including primary complaint of chest pain and with minimal/subtle neurologic sx, Stroke alert deferred. EKG without overt ST elevation. Chest x-ray was negative for acute process. WBC, H/H and platelets within normal limits. Chemistry without acidosis. BUN/creatinine> 20 consistent with the patient's clinically dry appearance. Phosphorus 1.9 with repletion provided. Initial troponin within normal limits but detectable. CTA of the head and neck was performed and negative for ischemia, ICH, severe narrowing or occlusion of large vessels. CT of the chest negative for PE, pneumonia or aortic pathology. Given the patient's report of feeling as though she has difficulty speaking reasonable to admit the patient for further monitoring for possible stroke. Unfortunately given the patient's cochlear implant an MRI will not be possible. Case was discussed Roxann Guerra, [facility], with Dr. Aparicio, [facility] hospitalist, who will evaluate the patient for admission. Triage Nursing notes reviewed and agree them. Additional history obtained from daughter Prior medical records reviewed Vital Signs: reviewed and remarkable for no significant abnormalities Differential diagnosis: Cardiac ischemia, aortic dissection, pulmonary embolism, pneumothorax, pneumoni a, pericarditis, myocarditis, esophageal rupture, GERD, cholecystitis, pancreatitis, musculoskeletal, as well as other pathologies. ER treatment provided: See below. Diagnostics interpreted by me: ECG: NSR, 96 bpm, no ectopy, ST and TW abnormalities laterally similar to , No overt ST elevation. QTC 437, QRS 80. Cardiac Monitoring: An order for continuous cardiac monitoring was placed and demonstrated NSR, 96 bpm, no ectopy Laboratory studies: See below Imaging studies: XR chest 1V portable CLINICAL HISTORY: Chest Pain dyspnea COMPARISON STUDY: 01/28/2018 FINDINGS: The bones soft tissues and hemidiaphragms are normal. The ca rdiomediastinal silhouette is normal. The lungs are clear. The pulmonary vasculature is normal. IMPRESSION: Negative chest. -- CT angio chest PE protocol CT DOSE: HISTORY: Chest pain PE TECHNIQUE: Multiaxial CT images of the chest were performed following the intravenous administration of contrast to evaluate the pulmonary arteries. Maximal intensity projection images were also obtained. A dose lowering technique was utilized adhering to the principles of ALARA. COMPARISON STUDY: None. FINDINGS: There is a normal caliber thoracic aorta with no evidence for dissection. There is no evidence for pulmonary embolus. No pleural effusions. No pneumothorax. The liver and spleen are unremarkable. No mediastinal or hilar lymphadenopathy. The central airways are patent. The lungs are clear. Minimal nodularity and/or atelectatic change of the inferior lingula. This is unchanged from the prior study. IMPRESSION: 1. No evidence for pulmonary embolus. 2. Scattered left and to a lesser extent right basilar atelectatic/nodular change considered stable. -- CT head/brain wo con CT DOSE: HISTORY: dysarthria/aphasia TECHNIQUE: Multiaxial CT images of the head were performed without the use of intravenous contrast. A dose lowering technique was utilized adhering to the principles of ALARA. Comparison: None. Findings: The paranasal sinuses and mastoid air cells are clear. The calvarium and skull base are intact. The ventricles and sulci are within normal limits. There is no mass, hematoma, midline shift, or acute infarct. Impression: No acute intracranial abnormality. Age-related atrophy and chronic small vessel change -- CT angio neck with con HISTORY: Mental status change dysarthria, aphasia TECHNIQUE: Multiaxial CT angiography of the neck was performed IV contrast: None. All measurements were calculated based on NASCET criteria. Maximum intensity projection images were also obtained. A dose lowering technique was utilized adhering to the principles of ALARA. COMPARISON STUDY: None. FINDINGS: The aortic arch and proximal great vessels are widely patent. There is no significant stenosis, occlusion, or dissection identified within the bilateral common carotid, internal carotid, or vertebral arteries. IMPRESSION: No significant stenosis, occlusion, or dissection identified within the carotid or vertebral arteries. Mild scattered plaque formation -- CT angio head w con HISTORY: aphsasia, dysarthria TECHNIQUE: Multiaxial CT angiography of the head was performed IV contrast: 119 cc nonionic Maximum intensity projection images were also obtained. A dose lowering technique was utilized adhering to the principles of ALARA. COMPARISON: None. FINDINGS: There is no mass, hematoma, midline shift, or acute infarct. Visualized intracranial internal carotid arteries, distal vertebral arteries, and basilar artery are widely patent. There is no significant stenosis, occlusion, or aneurysm seen within the bilateral ACAs, MCAs, or director of radio services. IMPRESSION: No significant stenosis, occlusion, or aneurysm within the [place]. Consultation(s): Case was discussed Roxann Guerra, [facility], with Dr. Aparicio, [facility] hospitalist, who will evaluate the patient for admission. HPI: The patient is a pleasant 64-year-old woman with a past medical meniere's disease, sensorineural hearing loss with cochlear implant, hypertension, hyperlipidemia, diabetes with plolyneuropathy, MELAS and h/o TIA who presents emergency department for evaluation of acute onset of chest pain that occurred abruptly prior to arrival when the patient was at rest. Subsequent to this episode she did report feeling "off and felt as though it was difficult for her to speak". Patient was evaluated by EMS and given aspirin where she reported resolution of her pain. Prior to today she denies fevers, chills, cough, congestion, n/v/d, urinary sx. ROS: See above HPI for pertinent positives & negatives. A total of 10 systems reviewed and were otherwise negative. PAST MEDICAL HISTORY:See Below PAST SURGICAL HISTORY:See Below FAMILY HISTORY:See Below SOCIAL HISTORY:See Below HOME MEDICATIONS:See Below ALLERGIES:See Below VITALS:See Below PHYSICAL EXAMINATION: GENERAL: Awake, alert, fatigued-appearing, in no distress HENT: Normocephalic, atraumatic. Oropharynx with dry mucous membranes and otherwise unremarkable. EYES: Normal conjunctiva. Sclera non-icteric. EOMI. No nystamgus. PEARRL. NECK: Supple. No nuchal rigidity. FROM. No JVD. RESPIRATORY: Clear to auscultation. CARDIAC: Regular rate, normal rhythm. Extremities warm and well perfused. Pulses equal. ABDOMEN: Soft, non-distended. No tenderness to palpation. No rebound or guarding. No masses. RECTAL: Deferred. MUSCULOSKELETAL: Chest examination reveals no tenderness. The back is symmet rical on inspection without obvious abnormality. There is no CVA tenderness to palpation. No joint edema. LOWER EXTREMITIES: Calves are equal size bilaterally and non-tender. No edema. No discoloration. NEURO: Normal sensorium. No sensory or motor deficits noted. Subtle difficulty with articulation of words but no overt dysarthria or word finding difficulty. 5/5 strength and SILT x 4 extremities. Cerebellar function intact including [id number], alternating palms, [id number]. SKIN: No rash or jaundice noted. Mainor Frazier MD Past Med/Surg History Medical History Atherosclerosis of coronary artery History of TIA (transient ischemic attack) HLD (hyperlipidemia) Hypertension (Chronic) Macular degeneration MELAS (mitochondrial encephalopathy, lactic acidosis and stroke-like episodes) (Acute) Mnire's disease Schatzki's ring Statin intolerance Type 1 diabetes mellitus Surgical History History of cholecystectomy History of cochlear implant Left in 2014 History of colonoscopy with polypectomy History of hysterectomy History of left heart catheterization 07/2019 which revealed 30% proximal LAD otherwise clean coronaries Family History Mother Coronary heart disease, Onset Age: 70 Father Coronary heart disease, Onset Age: 50 Social History Preferred Language: Lebanese Communication Ability: Effective Hearing Ability: Cochlear Implant Android Developer Required: No Beliefs That Will Affect Care: None marital status: Current Living Situation: Alone current occupational status: disabled Other Information That Helps Us Care for You: No Feels Safe at Home: Yes Safety Concerns: Feels Safe At This Time Smoking Status: Former smoker Do You Dip or Chew Tobacco: No ; Second Hand Exposure: No ; Tobacco Cessation Education Requested by Patient: No Hx Alcohol Use: No Hx Substance Use: No Allergies Allergies Allergy/AdvReac Type Severity Reaction Status Date / Time atorvastatin AdvReac Unknown UNKNOWN Unverified 05/14/20 13:24 prednisone AdvReac Unknown UNKNOWN Unverified 05/14/20 13:24 Home Meds Home Medications Medication Instructions Recorded Confirmed aspirin 325 mg PO QAM 05/14/20 05/14/20 fexofenadine-pseudoephedrine 1 tab PO QAM 05/14/20 05/14/20 [Evelyn-D 24 Hour] insulin aspart U-100 [Novolog 2 - 4 unit SUBCUT AC 05/14/20 05/14/20 Flexpen U-100 Insulin] insulin glargine [Lantus Solostar 10 - 20 unit SUBCUT PM 05/14/20 05/14/20 U-100 Insulin] vit [id number] 1 cap PO QAM 05/14/20 05/14/20 [[employer] Support] Results & Data (ED) Vital Signs Vital Signs - 24 hr 05/14/20 12:03 05/14/20 12:33 05/14/20 14:11 Temperature 36.7 C Temperature Source Oral Pulse Rate 65 Pulse Rate [Left Finger] 85 83 Pulse Rhythm [Left Finger] Pulse Strength [Left Finger] Respiratory Rate 20 24 20 Respiratory Effort / Characteristics Non-Labored Spontaneous Respiratory Depth Normal Blood Pressure 177/79 H Blood Pressure [Right Arm] 142/86 H 157/99 H Blood Pressure Mean 111 Blood Pressure Mean [Right Arm] 104 118 Blood Pressure Position [Right Arm] Pulse Oximetry 95 96 98 Oxygen Delivery Method Room Air Room Air Sepsis Recent Fever Within 48 Hours No Sepsis Action Taken by Nursing No Action Required 05/14/20 14:35 05/14/20 15:45 Temperature Temperature Source Pulse Rate Pulse Rate [Left Finger] 129 H 93 H Pulse Rhythm [Left Finger] Regular Pulse Strength [Left Finger] Normal Respiratory Rate 30 H 18 Respiratory Effort / Characteristics Non-Labored Spontaneous Respiratory Depth Normal Blood Pressure Blood Pressure [Right Arm] 152/91 H 134/80 Blood Pressure Mean Blood Pressure Mean [Right Arm] 111 98 Blood Pressure Position [Right Arm] Lying Pulse Oximetry 98 99 Oxygen Delivery Method Room Air Sepsis Recent Fever Within 48 Hours Sepsis Action Taken by Nursing Laboratory Data Attestation: I reviewed the patient's lab results. Result diagrams: 05/14/20 12:15 05/14/20 12:15 Lab Results 05/14/20 05/14/20 05/14/20 Range/Units 12:15 12:15 12:15 WBC 6.95 (4.8-10.8) K/uL RBC 4.41 (4.2-5.4) M/uL Hgb 12.9 (12.0-16.0) g/dL Hct 38.7 (37-47) % MCV 87.8 (80-100) fL MCH 29.3 (25-34) pg MCHC 33.3 (32-36) g/dL RDW Std Deviation 40.3 (36.4-46.3) fL RDW Coeff of Marj 12.5 (11.5-14.5) % Plt Count 262 (130-400) K/uL MPV 11.7 H (7.4-10.4) fL Immature Gran % (Auto) 0.1 % Neut % (Auto) 44.6 % Lymph % (Auto) 45.9 % Churchill % (Auto) 5.2 % Eos % (Auto) 3.0 % Baso % (Auto) 1.2 % Immature Gran # (Auto) 0.01 (0.00-0.02) K/uL Neut # (Auto) 3.10 (1.4-6.5) K/uL Lymph # (Auto) 3.19 (1.2-3.4) K/uL Churchill # (Auto) 0.36 (0.11-0.59) K/uL Eos # (Auto) 0.21 (0-0.5) K/uL Baso # (Auto) 0.08 (0-0.2) K/uL PT 10.4 (9.0-12.0) Seconds INR 1.0 (0.9-1.1) APTT 29.9 (21.0-31.0) Seconds PTT Ratio 1.1 Sodium 136 (136-145) mmol/L Potassium 4.6 (3.5-5.1) mmol/L Chloride 104 (98-107) mmol/L Carbon Dioxide 22 (21-32) mmol/L Anion Gap 10.0 (3-11) BUN 19 H (7-18) mg/dl Creatinine 0.81 (0.6-1.2) mg/dl Est Cr Clr Drug Dosing 58.8 ml/min Est GFR ( Amer) 89.6 Est GFR (Non-Af Amer) 77.3 BUN/Creatinine Ratio 23.3 H (10-20) Glucose 249 H (70-99) mg/dl Calcium 9.0 (8.5-10.1) mg/dl Phosphorus 1.9 L (2.5-4.9) mg/dl Magnesium 1.8 (1.8-2.4) mg/dl Total Bilirubin 0.4 (0.2-1) mg/dl AST 15 (15-37) U/L ALT 18 (12-78) U/L Alkaline Phosphatase 96 (45-117) U/L Troponin I 0.017 (0-0.045) ng/ml NT-Pro-B Natriuret Pep 40 (0-900) pg/ml Total Protein 7.9 (6.4-8.2) gm/dl Albumin 3.7 (3.4-5.0) gm/dl Globulin 4.2 H (2.5-4.0) gm/dl Albumin/Globulin Ratio 0.9 (0.9-2) Lipase 140 (73-393) U/L TSH 2.060 (0.300-4.500) uIu/ml Administered Medications Heparin Sodium/Dextrose (Heparin Sodium/Dextrose) 25,000 units in 500 mls @ 19 mls/hr IV .Q24H [facility]; Protocol Stop: 06/13/20 18:59 Last Admin: 05/14/20 21:36 Dose: 950 units/hr, 19 mls/hr Documented by: [id number] Cosigned by: [id number] Dextrose (D5w) 1,000 mls @ 60 mls/hr IV .[id number] [facility] Stop: 06/14/20 00:00 Last Admin: 05/14/20 23:47 Dose: 60 mls/hr Documented by: [id number] Insulin Aspart (Novolog Flexpen) 0 units SC ACHS [facility] Stop: 06/13/20 20:59 Last Admin: 05/14/20 21:06 Dose: Not Given Documented by: [id number] Insulin Glargine (Lantus Solostar Pen) 0 units SQ PM [facility]; Protocol Stop: 06/13/20 20:59 Last Admin: 05/14/20 21:08 Dose: 20 units Documented by: [id number] Cosigned by: [id number] Discontinued Medications Heparin Sodium/Dextrose () 1 ea IV Q15M [facility]; Protocol Stop: 05/14/20 20:46 Last Admin: 05/14/20 20:59 Dose: Not Given Documented by: [id number] Admin: 05/14/20 20:59 Dose: Not Given Documented by: [id number] Admin: 05/14/20 20:59 Dose: Not Given Documented by: [id number] Admin: 05/14/20 20:59 Dose: Not Given Documented by: [id number] Admin: 05/14/20 20:58 Dose: Not Given Documented by: [id number] Admin: 05/14/20 20:58 Dose: Not Given Documented by: [id number] Admin: 05/14/20 20:58 Dose: Not Given Documented by: [id number] Admin: 05/14/20 20:58 Dose: Not Given Documented by: [id number] Sodium Chloride (Nss) 500 mls @ 999 mls/hr IV .Q31M ONE Stop: 05/14/20 12:35 Last Infusion: 05/14/20 13:03 Dose: 0 mls/hr Documented by: [id number] Admin: 05/14/20 12:30 Dose: 999 mls/hr Documented by: [id number] Potassium Phosphate 9 mmol/ (Sodium Chloride) 253 mls @ 130 mls/hr IV ONE ONE Stop: 05/14/20 16:26 Last Infusion: 05/14/20 17:16 Dose: 0 mls/hr Documented by: [id number] Admin: 05/14/20 14:43 Dose: 130 mls/hr Documented by: [id number] Magnesium Sulfate/Dextrose (Magnesium Sulfate / D5w) 1 gm in 100 mls @ 50 mls/hr IV ONE ONE Stop: 05/14/20 21:44 Last Infusion: 05/14/20 23:01 Dose: 0 mls/hr Documented by: [id number] Admin: 05/14/20 21:01 Dose: 50 mls/hr Documented by: [id number] Ioversol (Optiray 320 125ml) 119 ml IV ONCE PRN PRN Reason: Interaction Checking Stop: 05/18/20 14:37 Last Admin: 05/14/20 14:38 Dose: 119 ml Documented by: [id number] Potassium Phosphate (Potassium Phosphate Replace) 9 mmol IV NOW STA Stop: 05/14/20 13:43 Last Admin: 05/14/20 16:15 Dose: Not Given Documented by: [id number] Blood Pressure Blood Pressure Findings: Elevated blood pressure Blood Pressure Disposition: further management by hospitalist Discharge Plan Visit Data *Final* Discharge Date/Time: 05/14/20 17:48 Chief Complaint: Chest Pain Stated Complaint: chest pain ED Provider: Mainor Frazier Discharge Problem: Substernal chest pain, Dysarthria, MELAS (mitochondrial encephalopathy, lactic acidosis and stroke-like episodes), Hypophosphatemia Patient Disposition: Admitted As Inpatient Discharge Instructions Interventions: ED Discharge Assessment Last Done: 05/14/20 17:19
[2020-05-14] MEDS ORDERED: MAGNESIUM SULFATE / D5W 1 GM/100 ML BAG IV ONE (19:45)
[2020-05-14 20:55] LABS: Partial Thromboplastin Ratio 1.1; Partial Thromboplastin Time 29.6 Seconds (21.0-31.0)
[2020-05-14] MEDS: Heparin IV Standard *NO* Bolus IV SCH ×2 (20:58→20:59)
[2020-05-14] MEDS: INSULIN ASPART 100 UNITS/ML 3 ML PEN SC SCH (21:06)
[2020-05-14] MEDS: INSULIN GLARGINE SOLOSTAR 100 UNITS/ML 3 ML PEN SQ SCH (21:08)
[2020-05-14] MEDS: HEPARIN SODIUM/DEXTROSE 25,000 UNITS/500 ML BAG IV SCH (21:36)
[2020-05-14] MEDS ORDERED: HEPARIN SOD 5,000 UNIT/0.5 ML VIAL SQ SCH (22:00)
[2020-05-15] MEDS ORDERED: DEXTROSE 5% 1,000 ML IV SCH
[2020-05-15 04:03] LABS: Hematocrit (blood only) 37.3 % (37-47); Hemoglobin 12.9 g/dL (12.0-16.0); Mean Corpuscular Hemoglobin 29.6 pg (25-34); Mean Corpuscular Hgb Conc 34.6 g/dL (32-36); Mean Corpuscular Volume 85.6 fL (80-100); Platelet Count 238 K/uL (130-400); RDW Coefficient of Variation 12.5 % (11.5-14.5); RDW Standard Deviation 39.3 fL (36.4-46.3); Red Blood Count 4.36 M/uL (4.2-5.4); White Blood Count 8.16 K/uL (4.8-10.8)
[2020-05-15 04:22] LABS: BUN Creatinine Ratio 20.4 (10-20); Calcium 8.7 mg/dl (8.5-10.1); Creatinine Clr Calc Pharmacy 72.2 ml/min; Magnesium 2.2 mg/dl (1.8-2.4); Potassium 4.1 mmol/L (3.5-5.1)
[2020-05-15 04:23] LABS: Partial Thromboplastin Ratio 2.1
[2020-05-15 04:43] LABS: Phosphorus 3.3 mg/dl (2.5-4.9); Troponin I 0.114 ng/ml (0-0.045)
[2020-05-15 04:44] LABS: Partial Thromboplastin Time 58.1 Seconds (21.0-31.0)
--- NOTE | 2020-05-15 08:46 | Hospitalist Progress Note ---
Date of Service May 15, 2020 Assessment & Plan (1) Chest pain: Risk factors for CAD include Type I diabetes, long-term, EKG changes, and hypertriglyceridemia. Continues on a heparin drip and aspirin. Cardiology was consulted and will be cathing her in am. (2) Type 1 diabetes mellitus: At goal cont insulin. (3) Atherosclerosis of coronary artery: prior heart cath revealed nonobstructive CAD. Cont aspirin, statin intolerant. (4) Hypertension: Gradually getting higher as the day progressed. Home Losartan has been held. Will restart that in am. (5) MELAS (mitochondrial encephalopathy, lactic acidosis and stroke-like episodes): Follows [facility] neurology s/p cochlear implant. (6) History of TIA (transient ischemic attack): takes prophylactic aspirin. Reports having spells where she has a recurrence of her speech difficulties that occur on occasion in the setting of stress. (7) Hypertriglyceridemia: [facility] cardiology-they are considering PKS9 inhibitor (8) DVT prophylaxis: Heparin drip Full Code Dispo-remain hospitalized. Laney Murcia DO [facility] Hospitalist Admission and Anticipated Discharge Date Admission Date: May 14, 2020 Subjective Pt describes an episode of chest pain outside [email or web address] at home, states that she was short of breath with this for about 30 minutes until EMS arrived. She took an aspirin on her own. At the hospital, she underwent the CT with contrast, and reports that the contrast made her chest pain return with a vengeance. She felt short of breath and saysthe people around her thought she was having a panic attack. She reports having a h/o stroke in 1998 and states that several times over the years when she gets tired or overworked, she will notice that her words will slur and then return to normal within a dew minutes. And she states this happened last night after the adrenaline of the day (prior to the CT contrast being given to her). She denies any other stroke like symptoms and otherwise feels well today, denying chest pain overnight, also EKG reveals some TWI in inferior, and anterolateral areas. Review of Systems Review of Systems: All systems reviewed & are unremarkable except as noted in Subjective Physical Exam Physical Exam: CONSTITUTIONAL: WNWD, vitals as above, generally well- appearing EYES: EOMI bilaterally, PERRL, normal conjunctivae, no scleral icterus ENT: external ear and nose normal, MMM RESPIRATORY: clear to auscultation bilaterally, no crackles, rales or wheezes, normal respiratory effort CARDIOVASCULAR: regular rate and rhythm, S1 and 2 heard without murmurs, gallops or rubs, no JVD, no peripheral edema GASTROINTESTINAL: soft, nontender, nondistended MUSCULOSKELETAL: strength 5/5 throughout, head is normocephalic and atraumatic SKIN: warm and dry NEUROLOGIC: No facial palsy, no dysarthria. Touch, pain and proprioception normal. CN 2-12 grossly intact, no sensory deficit, normal cognition, normal speech, no tremor PSYCHIATRIC: alert cooperative and oriented to person, place and time. Euthymic mood, makes good eye contact, language grossly intact, recent and remote memory grossly intact. Results & Data Results & Data ([facility]) Vital Signs (Past 12 Hours) Vital Signs Temp Pulse Pulse Resp BP Pulse Ox 05/15/20 03:17 36.4 C L 91 H 18 139/79 98 05/15/20 00:39 36.5 C 70 18 122/76 97 05/15/20 00:14 84 Laboratory Results Short CBC 05/14/20 05/14/20 05/14/20 Range/Units 12:15 12:15 17:48 WBC 6.95 (4.8-10.8) K/uL Hgb 12.9 (12.0-16.0) g/dL Hct 38.7 (37-47) % Plt Count 262 (130-400) K/uL Troponin I 0.017 0.204 H* (0-0.045) ng/ml 05/15/20 05/15/20 05/15/20 Range/Units 00:14 03:43 03:43 WBC 8.16 (4.8-10.8) K/uL Hgb 12.9 (12.0-16.0) g/dL Hct 37.3 (37-47) % Plt Count 238 (130-400) K/uL Troponin I 0.156 H* 0.114 H* (0-0.045) ng/ml BMP 05/14/20 05/15/20 12:15 03:43 Sodium 136 138 Potassium 4.6 4.1 Chloride 104 106 Carbon Dioxide 22 25 BUN 19 H 13 Creatinine 0.81 0.66 Glucose 249 H 139 H Calcium 9.0 8.7 Cardiac Enzymes 05/14/20 05/14/20 05/15/20 Range/Units 12:15 17:48 00:14 Troponin I 0.017 0.204 H* 0.156 H* (0-0.045) ng/ml 05/15/20 Range/Units 03:43 Troponin I 0.114 H* (0-0.045) ng/ml Liver Function 05/14/20 Range/Units 12:15 Total Bilirubin 0.4 (0.2-1) mg/dl AST 15 (15-37) U/L ALT 18 (12-78) U/L Alkaline Phosphatase 96 (45-117) U/L Albumin 3.7 (3.4-5.0) gm/dl Medications Administered Current Inpatient Medications Acetaminophen (Tylenol) 650 mg PO Q4H PRN PRN Reason: Pain or Fever Stop: 06/13/20 17:42 Al Hydrox/Mg Hydrox/Simethicone (Maalox) 15 ml PO Q4H PRN PRN Reason: Dyspepsia Stop: 06/13/20 17:42 Aspirin (Ecotrin) 325 mg PO QAM [facility] Stop: 06/14/20 08:59 Dextrose (Dextrose 50%) 25 - 50 ml IV UD PRN; Protocol PRN Reason: Hypoglycemia Protocol Stop: 06/13/20 17:42 Glucagon (Glucagen) 1 mg SQ UD PRN; Protocol PRN Reason: Hypoglycemia Protocol Stop: 06/13/20 17:42 Glucose (Dex4 Glucose) 4 - 8 tabs PO UD PRN; Protocol PRN Reason: Hypoglycemia Protocol Stop: 06/13/20 17:42 Glucose (Glucose 40%) 15 - 30 gm PO UD PRN; Protocol PRN Reason: Hypoglycemia Protocol Stop: 06/13/20 17:42 Heparin Sodium/Dextrose (Heparin Sodium/Dextrose) 25,000 units in 500 mls @ 19 mls/hr IV .Q24H [facility]; Protocol Stop: 06/13/20 18:59 Last Titration: 05/15/20 05:12 Dose: 950 units/hr, 19 mls/hr Documented by: Dextrose ([email or web address]) 1,000 mls @ 60 mls/hr IV .[id number] [facility] Stop: 06/14/20 00:00 Last Admin: 05/14/20 23:47 Dose: 60 mls/hr Documented by: Insulin Aspart (Novolog Flexpen) 0 units SC ACHS [facility] Stop: 06/13/20 20:59 Last Admin: 05/14/20 21:06 Dose: Not Given Documented by: Insulin Glargine (Lantus Solostar Pen) 0 units SQ PM [facility]; Protocol Stop: 06/13/20 20:59 Last Admin: 05/14/20 21:08 Dose: 20 units Documented by: Magnesium Hydroxide (Milk Of Magnesia) 30 ml PO Q12H PRN PRN Reason: Constipation Stop: 06/13/20 17:42 Miscellaneous (Carbohydrates For Hypoglycemia) 15 - 30 gm PO UD PRN PRN Reason: Hypoglycemia Protocol Stop: 06/13/20 17:42 Multivitamins/Minerals (Multivitamin W/ Minerals Tab) 1 tab PO QAM [facility] Stop: 06/14/20 08:59 Nitroglycerin (Nitrostat) 0.4 mg SL UD PRN PRN Reason: Chest Pain Stop: 06/13/20 17:42 Ondansetron HCl (Zofran) 4 mg IV Q6H PRN PRN Reason: Nausea Stop: 06/13/20 17:42 Polyethylene Glycol (Miralax Powder Packet) 17 gm PO DAILY PRN PRN Reason: Constipation Stop: 06/13/20 17:42
[2020-05-15] MEDS: CEROVITE ADV FORMULA TAB PO SCH (08:52)
[2020-05-15] MEDS: ASPIRIN 325 MG ECTAB PO SCH (08:52)
[2020-05-15] MEDS: INSULIN ASPART 100 UNITS/ML 3 ML PEN SC SCH ×4 (08:52→21:31)
--- NOTE | 2020-05-15 08:59 | Cardiology Consultation ---
Date of Consultation May 15, 2020 Assessment & Plan (1) Substernal chest pain: (2) Dysarthria: (3) Chest pain: (4) History of TIA (transient ischemic attack): (5) MELAS (mitochondrial encephalopathy, lactic acidosis and stroke-like episodes): (6) Type 1 diabetes mellitus: (7) Dysarthria: (8) NSTEMI (non-ST elevated myocardial infarction): Believe this patient had atypical chest pain however, with her cardiac markers being elevated, continued abnormal EKG and previous history of a soft plaque in the LAD on a cardiac CT angio, her history of type 1 diabetes and mitochondrial disorder, I think the best way to evaluate her is to repeat a cardiac catheterization. After discussion with the patient she is willing to proceed. I explained the risk benefit and intent. She has full understanding and we will repeat her heart catheterization in the morning. I will have further recommendations after that study has been completed. For now I would continue her current management including her heparin. History of Present Illness Attending Physician: Laney Murcia, History of Present Illness This is a 64-year-old female with a history as outlined below. She was in her usual state of health yesterday and went outside and pulled on a tarp. She developed sudden onset of crushing left-sided chest pain radiating down her arm which lasted approximately 20 to 30 minutes and then spontaneously resolved. She also had some speech difficulties and dysarthria during the event. She was brought to the emergency department by her family. While there she expressed no additional chest pain and her dysarthria had resolved. She went over in had a CT of the head and carotids which were unremarkable, upon her return she had some shortness of breath which may have been the result of anxiety. This patient is difficult to evaluate due to a longstanding history of anxiety and an abnormal baseline EKG. She underwent a cardiac catheterization in July 2009 due to the abnormal cardiac CT angio and was found to have widely patent coronary anatomy except for 30% narrowing in the LAD. After admission she has had no additional chest pain. Her cardiac troponins however, have mildly elevated suggesting the possibility of a non-STEMI. Past cardiac history: 1.Long-standing history of abnormal EKG, no anginal symptoms, 30% stenosis the proximal LAD on cardiac catheterization 08/15/2009 2.Noncalcified atherosclerotic plaque noted on CT leading up to cardiac catheterization, Agatston calcium score 0, 2008 3.Type 1 diabetes mellitus requiring insulin, times 20 years 1.MELAS, mitochondrial disorder, (which can have the stroke like episodes and periods of lactic acidosis). 2.Sensory neural hearing loss. 3.Prior episodes of vertigo 4.Dyslipidemia 5.Intolerance of multiple cholesterol medications Allergies Allergy/AdvReac Type Severity Reaction Status Date / Time atorvastatin AdvReac Unknown UNKNOWN Unverified 05/14/20 13:24 prednisone AdvReac Unknown UNKNOWN Unverified 05/14/20 13:24 Home Medications Home Medications Medication Instructions Recorded Confirmed Type aspirin 325 mg PO QAM 05/14/20 05/14/20 History fexofenadine-pseudoephedrine 1 tab PO QAM 05/14/20 05/14/20 History [Evelyn-D 24 Hour] insulin aspart U-100 [Novolog 2 - 4 unit SUBCUT AC 05/14/20 05/14/20 History Flexpen U-100 Insulin] insulin glargine [Lantus Solostar 10 - 20 unit SUBCUT PM 05/14/20 05/14/20 History U-100 Insulin] vit [id number] 1 cap PO QAM 05/14/20 05/14/20 History [[employer] Support] Patient History Medical History Atherosclerosis of coronary artery History of TIA (transient ischemic attack) HLD (hyperlipidemia) Hypertension (Chronic) Macular degeneration MELAS (mitochondrial encephalopathy, lactic acidosis and stroke-like episodes) (Acute) Mnire's disease Schatzki's ring Statin intolerance Type 1 diabetes mellitus Surgical History History of cholecystectomy History of cochlear implant Left in 2014 History of colonoscopy with polypectomy History of hysterectomy History of left heart catheterization 07/2019 which revealed 30% proximal LAD otherwise clean coronaries Family History Mother Coronary heart disease, Onset Age: 70 Father Coronary heart disease, Onset Age: 50 Social History Preferred Language: Hungarian Communication Ability: Effective 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 Appliances Required: No Beliefs That Will Affect Care: None marital status: Current Living Situation: Alone current occupational status: disabled Other Information That Helps Us Care for You: No Feels Safe at Home: Yes Safety Concerns: Feels Safe At This Time Smoking Status: Former smoker Do You Dip or Chew Tobacco: No ; Second Hand Exposure: No ; Tobacco Cessation Education Requested by Patient: No Hx Alcohol Use: No Hx Substance Use: No Review of Systems Review of Systems: All systems reviewed & are unremarkable except as noted in HPI & below In addition the patient has a cochlear implant for hearing loss which may be related to her mitochondrial abnormality Physical Exam Physical Exam: General: no acute distress and stated age Head: normocephalic, no masses, lesions, tenderness or abnormalities Eyes: conjunctiva are pink and non-injected, sclera clear Neck: supple, no adenopathy, no bruits, normal jugular venous pulse, no hepatojugular reflux Chest: normal shape and normal respiratory effort Lungs: clear to auscultation and percussion Cardiac Exam: - regular rate & rhythm, no murmurs gallops or rubs - normal S1, normal S2 Pulses: 2(+) throughout Abdomen: abdomen soft, non-tender, no abnormal masses and no hepatosplenomegaly Musculoskeletal: no gait disturbance, no joint inflammation, no deforming arthritis Extremities: no edema and no cyanosis Neuro: grossly normal exam Results & Data ([facility]) Vital Signs (Past 12 Hours) Vital Signs Temp Pulse Pulse Resp BP Pulse Ox 05/15/20 03:17 36.4 C L 91 H 18 139/79 98 05/15/20 00:39 36.5 C 70 18 122/76 97 05/15/20 00:14 84 Laboratory Results Laboratory Results - last 24 hr 05/14/20 05/14/20 05/14/20 12:15 17:48 17:52 WBC RBC Hgb Hct MCV MCH MCHC RDW Std Deviation RDW Coeff of Marj Plt Count MPV APTT PTT Ratio Sodium 136 Potassium 4.6 Chloride 104 Carbon Dioxide 22 Anion Gap 10.0 BUN 19 H Creatinine 0.81 Est Cr Clr Drug Dosing 58.8 Est GFR ( Amer) 89.6 Est GFR (Non-Af Amer) 77.3 BUN/Creatinine Ratio 23.3 H Glucose 249 H POC Glucose 121 H Estimat Average Glucose Hemoglobin A1c Calcium 9.0 Phosphorus 1.9 L Magnesium 1.8 Total Bilirubin 0.4 AST 15 ALT 18 Alkaline Phosphatase 96 Troponin I 0.017 0.204 H* NT-Pro-B Natriuret Pep 40 Total Protein 7.9 Albumin 3.7 Globulin 4.2 H Albumin/Globulin Ratio 0.9 Triglycerides Cholesterol LDL Cholesterol, Calc VLDL Cholesterol, Calc HDL Cholesterol Cholesterol/HDL Ratio Lipase 140 TSH 2.060 05/14/20 05/14/20 05/15/20 20:35 20:42 00:14 WBC RBC Hgb Hct MCV MCH MCHC RDW Std Deviation RDW Coeff of Marj Plt Count MPV APTT 29.6 PTT Ratio 1.1 Sodium Potassium Chloride Carbon Dioxide Anion Gap BUN Creatinine Est Cr Clr Drug Dosing Est GFR ( Amer) Est GFR (Non-Af Amer) BUN/Creatinine Ratio Glucose POC Glucose 206 H Estimat Average Glucose Hemoglobin A1c Calcium Phosphorus Magnesium Total Bilirubin AST ALT Alkaline Phosphatase Troponin I 0.156 H* NT-Pro-B Natriuret Pep Total Protein Albumin Globulin Albumin/Globulin Ratio Triglycerides Cholesterol LDL Cholesterol, Calc VLDL Cholesterol, Calc HDL Cholesterol Cholesterol/HDL Ratio Lipase TSH 05/15/20 05/15/20 05/15/20 02:23 03:43 03:43 WBC 8.16 RBC 4.36 Hgb 12.9 Hct 37.3 MCV 85.6 MCH 29.6 MCHC 34.6 RDW Std Deviation 39.3 RDW Coeff of Marj 12.5 Plt Count 238 MPV 11.0 H APTT PTT Ratio Sodium 138 Potassium 4.1 Chloride 106 Carbon Dioxide 25 Anion Gap 7.0 BUN 13 Creatinine 0.66 Est Cr Clr Drug Dosing 72.2 Est GFR ( Amer) 109.0 Est GFR (Non-Af Amer) 94.0 BUN/Creatinine Ratio 20.4 H Glucose 139 H POC Glucose 160 H Estimat Average Glucose Hemoglobin A1c Calcium 8.7 Phosphorus 3.3 D Magnesium 2.2 Total Bilirubin AST ALT Alkaline Phosphatase Troponin I 0.114 H* NT-Pro-B Natriuret Pep Total Protein Albumin Globulin Albumin/Globulin Ratio Triglycerides 350 H Cholesterol 257 H LDL Cholesterol, Calc 137 VLDL Cholesterol, Calc 70 HDL Cholesterol 50 Cholesterol/HDL Ratio 5 Lipase TSH 05/15/20 05/15/20 05/15/20 03:43 03:43 04:26 WBC RBC Hgb Hct MCV MCH MCHC RDW Std Deviation RDW Coeff of Marj Plt Count MPV APTT 58.1 H* PTT Ratio 2.1 Sodium Potassium Chloride Carbon Dioxide Anion Gap BUN Creatinine Est Cr Clr Drug Dosing Est GFR ( Amer) Est GFR (Non-Af Amer) BUN/Creatinine Ratio Glucose POC Glucose 149 H Estimat Average Glucose Pending Hemoglobin A1c Pending Calcium Phosphorus Magnesium Total Bilirubin AST ALT Alkaline Phosphatase Troponin I NT-Pro-B Natriuret Pep Total Protein Albumin Globulin Albumin/Globulin Ratio Triglycerides Cholesterol LDL Cholesterol, Calc VLDL Cholesterol, Calc HDL Cholesterol Cholesterol/HDL Ratio Lipase TSH 05/15/20 05/15/20 05/15/20 06:09 07:43 11:39 WBC RBC Hgb Hct MCV MCH MCHC RDW Std Deviation RDW Coeff of Marj Plt Count MPV APTT PTT Ratio Sodium Potassium Chloride Carbon Dioxide Anion Gap BUN Creatinine Est Cr Clr Drug Dosing Est GFR ( Amer) Est GFR (Non-Af Amer) BUN/Creatinine Ratio Glucose POC Glucose 146 H 168 H 183 H Estimat Average Glucose Hemoglobin A1c Calcium Phosphorus Magnesium Total Bilirubin AST ALT Alkaline Phosphatase Troponin I NT-Pro-B Natriuret Pep Total Protein Albumin Globulin Albumin/Globulin Ratio Triglycerides Cholesterol LDL Cholesterol, Calc VLDL Cholesterol, Calc HDL Cholesterol Cholesterol/HDL Ratio Lipase TSH Medications Administered Current Inpatient Medications Acetaminophen (Tylenol) 650 mg PO Q4H PRN PRN Reason: Pain or Fever Stop: 06/13/20 17:42 Last Admin: 05/15/20 09:22 Dose: 650 mg Documented by: Al Hydrox/Mg Hydrox/Simethicone (Maalox) 15 ml PO Q4H PRN PRN Reason: Dyspepsia Stop: 06/13/20 17:42 [facility]ir[facility]cot[facility]) [facility] Stop: 06/14/20 08:59 Last Admin: 05/15/20 08:52 Dose: 325 mg Documented by: Dextrose (Dextrose 50%) 25 - 50 ml IV UD PRN; Protocol PRN Reason: Hypoglycemia Protocol Stop: 06/13/20 17:42 Glucagon (Glucagen) 1 mg SQ UD PRN; Protocol PRN Reason: Hypoglycemia Protocol Stop: 06/13/20 17:42 Glucose (Dex4 Glucose) 4 - 8 tabs PO UD PRN; Protocol PRN Reason: Hypoglycemia Protocol Stop: 06/13/20 17:42 Glucose (Glucose 40%) 15 - 30 gm PO UD PRN; Protocol PRN Reason: Hypoglycemia Protocol Stop: 06/13/20 17:42 Heparin Sodium/Dextrose (Heparin Sodium/Dextrose) 25,000 units in 500 mls @ 19 mls/hr IV .Q24H [place]MENT[place]; Protocol Stop: 06/13/20 18:59 Last Titration: 05/15/20 05:12 Dose: 950 units/hr, 19 mls/hr Documented by: Dextrose (D5w) 1,000 mls @ 60 mls/hr IV .[id number] [place] Stop: 06/14/20 00:00 Last Infusion: 05/15/20 12:24 Dose: 0 mls/hr Documented by: Sodium Chloride (Nss 1000ml) 1,000 mls @ 1 mls/hr IV .Q24H [place] Stop: 06/14/20 12:29 Insulin Aspart (Novolog Flexpen) 0 units SC Q6 [place] Stop: 06/14/20 11:59 Last Admin: 05/15/20 12:25 Dose: 1 units Documented by: Insulin Glargine (Lantus Solostar Pen) 0 units SQ PM [place]MENT[place]; Protocol Stop: 06/13/20 20:59 Last Admin: 05/14/20 21:08 Dose: 20 units Documented by: Magnesium Hydroxide (Milk Of Magnesia) 30 ml PO Q12H PRN PRN Reason: Constipation Stop: 06/13/20 17:42 Miscellaneous (Carbohydrates For Hypoglycemia) 15 - 30 gm PO UD PRN PRN Reason: Hypoglycemia Protocol Stop: 06/13/20 17:42 Multivitamins/Minerals (Multivitamin W/ Minerals Tab) 1 tab PO QAM [facility] Stop: 06/14/20 08:59 Last Admin: 05/15/20 08:52 Dose: 1 tab Documented by: Nitroglycerin (Nitrostat) 0.4 mg SL UD PRN PRN Reason: Chest Pain Stop: 06/13/20 17:42 Ondansetron HCl (Zofran) 4 mg IV Q6H PRN PRN Reason: Nausea Stop: 06/13/20 17:42 Polyethylene Glycol (Miralax Powder Packet) 17 gm PO DAILY PRN PRN Reason: Constipation Stop: 06/13/20 17:42
[2020-05-15] MEDS: ACETAMINOPHEN 325 MG TAB PO PRN ×2 (09:22→18:10)
--- NOTE | 2020-05-15 09:24 | CT Scan Report ---
CT SCAN OF THE BRAIN WITHOUT IV CONTRAST CLINICAL HISTORY: Strokelike symptoms. COMPARISON STUDY: CT of the brain dated 05/14/2020. TECHNIQUE: Unenhanced axial CT scan of the brain is performed from the vertex to the skull base. A do se lowering technique was utilized adhering to the principles of ALARA. The examination is degraded b y streak artifact from metallic hardware. CT DOSE: 537.48 mGy.cm FINDINGS: Brain parenchyma: There are age-related involutional changes noting moderate subcortical and periven tricular microangiopathic change. There is no hemorrhage, mass effect, or evidence of acute territori al ischemia by CT criteria. Alcantara-white matter differentiation is preserved. No extra-axial fluid yamileth ection is seen. Mineralization is noted in the basal ganglia. Ventricles, sulci, cisterns: Prominent secondary to involutional change. Intracranial vasculature: There is atherosclerotic calcification of the cavernous carotid and vertebr al arteries. Calvarium: Unremarkable. Sinuses and mastoids: The visualized paranasal sinuses are clear. Postoperative change is noted in th e mastoid air cells. There is a large left mastoid effusion. Leads are present in the left middle ear . The right mastoid air cells are well pneumatized. Orbits: The bony orbits are grossly intact. IMPRESSION: 1. There is no hemorrhage, mass effect, or evidence of acute territorial ischemia by CT criteria. 2. Left mastoid effusion. ACT 112: Negative or not required by law. Electronically signed by: Wilbert Lee M.D. 05/15/2020 9:22 AM
[2020-05-15] MEDS ORDERED: Nursing to Pharmacy Communication SCH ×2 (10:30→14:00)
--- NOTE | 2020-05-15 11:10 | Neurology Consultation ---
Date of Consultation May 15, 2020 Assessment & Plan (1) NSTEMI (non-ST elevated myocardial infarction): (2) Dysarthria: (3) MELAS (mitochondrial encephalopathy, lactic acidosis and stroke-like episodes): A 64 year old woman with reported Hx of MELAS (unclear if genetic testing was performed) admitted with chest pain which has now resolved. Known history of CAD and pending cardiac catheterization tomorrow. Neurology consulted for reported dysarthria which she describes as "slow speech, and trouble finding her words". Speech is currently back to baseline and no aphasia. She is hard of hearing and has cochlear implant. CT head non contrast reviewed. Artifact from the implant impairs image quality but no clear evidence of previous stroke. MELAS is typically associated with ischemic stroke which do not follow vascular territories (stroke like episodes). Recommend to continue home ASA. Would consider genetic testing if not already performed as outpatient if patient desires. History of Present Illness Reason for Consultation: Dysarthria Attending Physician: Laney Murcia, History of Present Illness A 64-year-old woman with a PMH of MELAS on ASA, sensorineural hearing loss s/p cochlear implant, CAD, IDDM, history of TIA, Mnire's disease, HTN, and HLD who presented to the emergency department yesterday with chest pain and transient dysarthria. She was admitted for evaluation of NSTEMI and started on heparin gtt. Patient is unable to get MRI brain due to cochlear implant. Neurology consulted for further evaluation. Allergies Allergy/AdvReac Type Severity Reaction Status Date / Time atorvastatin AdvReac Unknown UNKNOWN Unverified 05/14/20 13:24 prednisone AdvReac Unknown UNKNOWN Unverified 05/14/20 13:24 Home Medications Home Medications Medication Instructions Recorded Confirmed Type aspirin 325 mg PO QAM 05/14/20 05/14/20 History fexofenadine-pseudoephedrine 1 tab PO QAM 05/14/20 05/14/20 History [Evelyn-D 24 Hour] insulin aspart U-100 [Novolog 2 - 4 unit SUBCUT AC 05/14/20 05/14/20 History Flexpen U-100 Insulin] insulin glargine [Lantus Solostar 10 - 20 unit SUBCUT PM 05/14/20 05/14/20 History U-100 Insulin] vit [id number] 1 cap PO QAM 05/14/20 05/14/20 History [[employer]] Patient History Medical History Atherosclerosis of coronary artery History of TIA (transient ischemic attack) HLD (hyperlipidemia) Hypertension (Chronic) Macular degeneration MELAS (mitochondrial encephalopathy, lactic acidosis and stroke-like episodes) (Acute) Mnire's disease Schatzki's ring Statin intolerance Type 1 diabetes mellitus Surgical History History of cholecystectomy History of cochlear implant Left in 2014 History of colonoscopy with polypectomy History of hysterectomy History of left heart catheterization 07/2019 which revealed 30% proximal LAD otherwise clean coronaries Family History Mother Coronary heart disease, Onset Age: 70 Father Coronary heart disease, Onset Age: 50 Social History Preferred Language: Nicaraguan Communication Ability: Effective Hearing Ability: Cochlear Implant Examination Grader Required: No Beliefs That Will Affect Care: None marital status: Current Living Situation: Alone current occupational status: disabled Other Information That Helps Us Care for You: No Feels Safe at Home: Yes Safety Concerns: Feels Safe At This Time Smoking Status: Former smoker Do You Dip or Chew Tobacco: No ; Second Hand Exposure: No ; Tobacco Cessation Education Requested by Patient: No Hx Alcohol Use: No Hx Substance Use: No Physical Exam Physical Exam: EXAM: Constitutional: appearance normally developed Face: normocephalic and atraumatic Eyes: normal lids, normal conjunctiva Neck: supple Respiratory: normal effort Cardiovascular: normal pulses Abdomen: non distended Skin: no rashes, lesions, or ulcers noted Psychiatric: normal mood and normal affect NEUROLOGIC EXAMINATION: Appearance: no acute distress Orientation: awake, alert and oriented x 3 Mental Status: alert Attention: normal Knowledge: appropriate Language: no aphasia Speech: no dysarthria Cranial Nerves: CN 2 - no visual defect on confrontation and pupils round, equal, reactive to light CN 3, 4, 6 - extra-ocular movements intact CN 5 - facial sensation intact CN 7 - no facial asymmetry CN 8 - intact hearing CN 9, 10 - palate symmetric CN 11 - good shoulder shrug CN 12 - tongue midline Gait:deferred Coordination: no ataxia with finger to nose testing Sensory: intact and symmetric to light touch Muscle Tone: normal Muscle exam: 5/5 in the upper extremities bilateral Reflexes: toes down going Results & Data Vital Signs (Past 12 Hours) Vital Signs Temp Pulse Pulse Resp BP BP Pulse Ox 05/15/20 09:19 36.4 C L 97 H 16 137/77 99 05/15/20 03:17 36.4 C L 91 H 18 139/79 98 05/15/20 00:39 36.5 C 70 18 122/76 97 05/15/20 00:14 84 Diagnostic Findings CTA head and neck: No significant stenosis, occlusion, or dissection identified within the carotid or vertebral arteries. Mild scattered plaque formation CT head non contrast: There is no hemorrhage, mass effect, or evidence of acute territorial ischemia by CT criteria. 2. Left mastoid effusion.
[2020-05-15] MEDS ORDERED: INSULIN ASPART 100 UNITS/ML 3 ML PEN SC SCH (12:00)
--- NOTE | 2020-05-15 14:25 | Electrocardiogram Report ---
Test Reason : Blood Pressure : / mmHG Vent. Rate : 127 BPM Atrial Rate : 127 BPM P-R Int : 116 ms QRS Dur : 080 ms QT Int : 322 ms P-R-T Axes : 089 -36 120 degrees QTc Int : 467 ms Sinus tachycardia Left axis deviation Anteroseptal infarct (cited on or before 14-MAY-2020) Abnormal ECG When compared with ECG of 14-MAY-2020 11:58, No significant change was found Confirmed by Grzegorz Saucedo ([id number]) on 05/15/2020 2:24:45 PM Referred By: REFERRED SELF Confirmed By:Grzegorz Saucedo
--- NOTE | 2020-05-15 14:32 | Electrocardiogram Report ---
Test Reason : Blood Pressure : / mmHG Vent. Rate : 075 BPM Atrial Rate : 075 BPM P-R Int : 120 ms QRS Dur : 082 ms QT Int : 444 ms P-R-T Axes : 070 -34 249 degrees QTc Int : 495 ms Normal sinus rhythm Left axis deviation Septal infarct (cited on or before 14-MAY-2020) Abnormal ECG When compared with ECG of 14-MAY-2020 14:42, (unconfirmed) Vent. rate has decreased BY 52 BPM Confirmed by Grzegorz Saucedo ([id number]) on 05/15/2020 2:32:05 PM Referred By: REFERRED SELF Confirmed By:Grzegorz Saucedo
[2020-05-15] MEDS: HEPARIN SODIUM/DEXTROSE 25,000 UNITS/500 ML BAG IV SCH ×2 (17:43→21:40)
[2020-05-15] MEDS: INSULIN GLARGINE SOLOSTAR 100 UNITS/ML 3 ML PEN SQ SCH (21:31)
[2020-05-15] MEDS: SODIUM CHLORIDE 0.9% 1000ML 1,000 ML IV SCH (23:55)
[2020-05-16 05:58] LABS: Estimated Average Glucose 189 mg/dl; Hemoglobin A1C 8.2 % (4.5-5.6)
[2020-05-16] MEDS: INSULIN ASPART 100 UNITS/ML 3 ML PEN SC SCH ×4 (06:57→21:51)
[2020-05-16 07:21] LABS: Hematocrit (blood only) 39.8 % (37-47); Hemoglobin 13.1 g/dL (12.0-16.0); Mean Corpuscular Hemoglobin 28.6 pg (25-34); Mean Corpuscular Hgb Conc 32.9 g/dL (32-36); Mean Corpuscular Volume 86.9 fL (80-100); Mean Platelet Volume 11.2 fL (7.4-10.4); Platelet Count 243 K/uL (130-400); RDW Coefficient of Variation 12.7 % (11.5-14.5); RDW Standard Deviation 40.6 fL (36.4-46.3); Red Blood Count 4.58 M/uL (4.2-5.4)
[2020-05-16 07:45] LABS: Partial Thromboplastin Ratio 2.8
[2020-05-16 07:47] LABS: BUN Creatinine Ratio 19.8 (10-20); Calcium 8.6 mg/dl (8.5-10.1); Est GFR (African American) 115.7; Est GFR (Non-African American) 99.8; Potassium 3.9 mmol/L (3.5-5.1)
[2020-05-16 07:49] LABS: Partial Thromboplastin Time 77.8 Seconds (21.0-31.0)
[2020-05-16] MEDS: CEROVITE ADV FORMULA TAB PO SCH (07:58)
[2020-05-16] MEDS: ASPIRIN 325 MG ECTAB PO SCH (07:58)
[2020-05-16] MEDS ORDERED: NiCARDipine HCL INJ 2.5 MG/ML 10 ML AMP ONE (09:06)
[2020-05-16] MEDS ORDERED: HEPARIN (PORCINE) 1000 UNIT/ML 10 ML (CATH LAB USE ONLY) ONE (09:06)
[2020-05-16] MEDS ORDERED: fentaNYL citrate 100 MCG/2 ML VIAL ONE (09:07)
[2020-05-16] MEDS ORDERED: MIDAZOLAM HCL 1 MG/ML 2ML VIAL ONE (09:07)
[2020-05-16] MEDS ORDERED: NITROGLYCERIN/D5W 100MCG/ML 20ML SYR ONE (09:07)
[2020-05-16] MEDS ORDERED: BIVALIRUDIN 250 MG VIAL (CATH LAB ONLY) ONE (09:54)
--- NOTE | 2020-05-16 10:07 | Cardiac Catheterization ---
Date of Service May 16, 2020 Cardiac Cath Report Cardiac Cath Report Procedure: 1. Coronary angiography History: This is a 64-year-old female with history of diabetes who presented with chest pain and had elevation in her cardiac troponins consistent with a non-STEMI. Procedure summary: After informed consent was obtained, patient was brought to the cardiac catheterization lab where access was obtained using a retrograde cylinder technique from the right radial artery. The patient had a negative Barbeau maneuver indicating good collateral flow into her right hand. After an arterial sheath was in place preformed 5 Norwegian diagnostic catheters were utilized for the coronary angiograms. Following the procedure the patient underwent coronary intervention. ACC data: Start time 9:15 AM End time 9:50 AM Central aortic pressure 115/74 Closing aortic pressure 115/75 Sedation 1 mg intravenous Versed and 25 mcg of fentanyl IV fluid 31 cc normal saline Contrast 56 cc of Optiray Fluoroscopy time 2 minutes Radiation 233 mGy DAP 16.80 Right dominant system AUC score 9 Coronary angiography: Selective injections of the left coronary artery revealed the left main trunk to be widely patent. The left circumflex artery consists of several small marginal branches and then a large posterior marginal branch. Several of the smaller marginal branches are diffusely diseased and atretic. The large marginal branch is widely patent the mid left circumflex artery has a 30% stenoses. The LAD is a small artery only reaching to the apex of the heart. There is a 70 to 80% stenosis in the proximal portion of the artery. Injections into the right coronary artery reveal it to be dominant. The PDA is subtotaled distally with ZACK grade I flow along with evidence of left to right collaterals to the distal PDA. The remainder the right coronary artery is patent. Summary: The patient has a 70 to 80% eccentric stenosis of the proximal LAD. The left circumflex in the main portion of the AV groove artery has minor nonobstructive disease but it does have several small marginal branches which are diffusely diseased and atretic with a single large marginal branch being widely patent. The right coronary artery has a subtotal stenosis in the distal PDA with left to right collaterals filling the distal portion of the PDA. Recommendations: Recommendations are for coronary intervention and stent placement in the LAD with the remainder of the coronary artery disease being treated medically.
[2020-05-16] MEDS ORDERED: TICAGRELOR 90 MG TAB PO ONE (10:10)
--- NOTE | 2020-05-16 11:19 | Post Operative Brief Note ---
Cardiology Brief Post Op Date of Surgery May 16, 2020 Pre & Post Diagnosis Operation Date: 05/16/20 09:30 Please see full diagnostic report for details of the procedure. Successful PCI of proximal LAD with 2.75 mm X 15 mm drug-eluting stent, postdilated with 3 mm noncompliant balloon with 0% residual and normal flow. Procedure Coronary angiography, percutaneous intervention of proximal LAD. Rack Carrier Elder Wallace MD Helicopter Technician none Estimated Blood Loss 10 Findings Consistent with Post-Op Diagnosis Please see full diagnostic report for details of the procedure. Successful PCI of proximal LAD with 2.75 mm X 15 mm drug-eluting stent, postdilated with 3 mm noncompliant balloon with 0% residual and normal flow. Complications none
--- NOTE | 2020-05-16 11:21 | Cardiac Catheterization ---
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 Cardiac Status Clinical evaluation leading to the procedure CAD Presenation: Non STEMI Diagnostic Physicians Name: Elder Wallace MD Closure Device Recommendations: PCI without planned CABG Cardiac Cath Procedure Full Procedure Date May 16, 2020 Pre-Procedure Diagnosis Pre-Procedure Diagnosis: Non STEMI AUC Score AUC Score: 9 Post-Procedure Diagnosis Post-Procedure Diagnosis: Severe CAD and Successful PCI Procedure(s) Performed Procedure(s) Performed: Coronary Angiography and Drug Eluting Stent King Maker Elder Wallace MD Estimated Blood Loss Estimated Blood Loss: 10 ccs Summary of Findings Please see full diagnostic report for details of the procedure. Successful PCI of proximal LAD with 2.75 mm X 15 mm drug-eluting stent, postdilated with 3 mm noncompliant balloon with 0% residual and normal flow. Hemodynamics Rest Ao:: 133/76 Final Ao: 110/66 LV: . Recommendations Recommendations: PCI without planned CABG Radiation Exposure (mGy) 2849.9 Contrast (mls) 116 I attest to the content of the Intraoperative Record and any orders documented therein. Any exceptions are noted below. PG Care Time/CCT Total # of Minutes Spent Total Time Spent with Patient: Total time spent is greater than 50% in coordination of care (as documented) at patient's floor/unit and/or counseling patient:
--- NOTE | 2020-05-16 11:22 | Post Anesthesia Assessment ---
Date of Service May 16, 2020 Post Sedation Assessment Vital Signs Temp Pulse Pulse Resp BP BP Pulse Ox 05/16/20 10:40 104 H 18 127/74 95 05/16/20 10:25 106 H 18 125/68 95 05/16/20 09:00 88 05/16/20 08:50 36.6 C 90 20 152/88 H 98 05/16/20 07:16 36.6 C 72 18 122/73 97 05/16/20 04:49 36.3 C L 74 18 136/80 97 05/16/20 02:17 68 05/15/20 23:50 36.7 C 84 16 118/76 98 05/15/20 19:58 36.5 C 77 19 121/69 97 05/15/20 17:23 91 H 05/15/20 15:57 36.9 C 94 H 18 114/76 98 05/15/20 11:56 36.0 C L 82 18 114/55 L 98 Recovery Score Activity: Moves 4 extremities Respiration: Deep Breath/Cough Circulation: +/-20% PreAnes Value Consciousness: Fully Awake Oxygen Saturation: > 92% On Room Air Post Anesthesia Score: 10 Discharge Sedation Level of Care: Phase I Post Sedation Plan On clinical assessment, the patient appears to have tolerated the sedation without complications. Patient is recovering as anticipated. Patient will continue to be monitored by nursing and may be discharged when sedation discharge criteria are met per below protocol. Upon Completions of procedure up to 15 minutes continue every 5 minute vital signs and the P.A.R. score; then discharge to a Phase I or Fast Track to Phase II per the following guidelines: * Discharge Patient to appropriate Phase II area if PAR is 8 or greater or return to pre- procedure baseline. The post - procedure orders will be as directed. * If PAR score is less than 8 or not return to pre-procedure baseline then patient will follow Phase I monitoring till PAR is reached for Phase II. The Phase I may be done in procedure room or may call to secure a Phase I area. * If naloxone or flumazenil are used for reversal, hold in Phase I for continued monitoring from when last reversal dose was given for a minimum of 60 minutes or longer pending the nurse and/or physician discretion of patient condition before discharge to Phase II. Please call the Sedation Physician to re-evaluate and complete post-note for discharge to Phase II area. Do NOT discharge from procedure sedation or Phase 1 until post- sedation evaluation note is complete by procedure /sedation MD Sedation Discharge Instructions to be given to the patient at discharge to home.
--- NOTE | 2020-05-16 11:31 | Electrocardiogram Report ---
Test Reason : Blood Pressure : / mmHG Vent. Rate : 083 BPM Atrial Rate : 083 BPM P-R Int : 112 ms QRS Dur : 084 ms QT Int : 436 ms P-R-T Axes : 063 -35 196 degrees QTc Int : 512 ms Normal sinus rhythm Left axis deviation Septal infarct (cited on or before 14-MAY-2020) Prolonged QT Abnormal ECG When compared with ECG of 15-MAY-2020 07:42, No significant change Confirmed by Grzegorz Saucedo ([id number]) on 05/16/2020 11:30:59 AM Referred By: REFERRED SELF Confirmed By:Grzegorz Saucedo
[2020-05-16 14:29] LABS: Partial Thromboplastin Ratio 1.7
[2020-05-16 14:33] LABS: Partial Thromboplastin Time 46.5 Seconds (21.0-31.0)
--- NOTE | 2020-05-16 20:27 | Hospitalist Progress Note ---
Date of Service May 16, 2020 Assessment & Plan (1) NSTEMI (non-ST elevated myocardial infarction): Received one VÍCTOR to LAD. PDA occluded with collaterals. Long-standing Type I diabetes. Cont medical management of CAD. Noted to be statin intolerant. Brillinta, Lopressor, and ASA. (2) Type 1 diabetes mellitus: At goal cont insulin. (3) Hypertension: Losartan held. (4) MELAS (mitochondrial encephalopathy, lactic acidosis and stroke-like episodes): Follows [facility] neurology s/p cochlear implant. (5) History of TIA (transient ischemic attack): takes prophylactic aspirin. Reports having spells where she has a recurrence of her speech difficulties that occur on occasion in the setting of stress. Was likely having a similar issue with dysarthria. Outpatient followup with Neurology. Cont baby aspirin. (6) Hypertriglyceridemia: [facility] cardiology-they are considering PKS9 inhibitor (7) DVT prophylaxis: SCDs s/p cath, consider starting chemoprophy in am unless discharged. Full Code Dispo-remain hospitalized. Laney Murcia DO [facility] Hospitalist Admission and Anticipated Discharge Date Admission Date: May 16, 2020 Subjective feeling well post cath today received one VÍCTOR to the LAD PDA was occluded with collaterals TR band removed no chest pain or SOB per patient Review of Systems Review of Systems: All systems reviewed & are unremarkable except as noted in Subjective Physical Exam Physical Exam: CONSTITUTIONAL: WNWD, vitals as above, generally well- appearing EYES: normal conjunctivae, no scleral icterus ENT: external ear and nose normal, MMM RESPIRATORY: clear to auscultation bilaterally, no crackles, rales or wheezes, normal respiratory effort CARDIOVASCULAR: regular rate and rhythm, S1 and 2 heard without murmurs, gallops or rubs, no JVD, no peripheral edema GASTROINTESTINAL: soft, nontender, nondistended MUSCULOSKELETAL: strength 5/5 throughout, head is normocephalic and atraumatic SKIN: warm and dry, right hand warm and well perfused, TR band is off. NEUROLOGIC: No facial palsy, no dysarthria. Touch, pain and proprioception normal. CN 2-12 grossly intact, no sensory deficit, normal cognition, normal speech, no tremor PSYCHIATRIC: alert cooperative and oriented to person, place and time. Euthymic mood, makes good eye contact, language grossly intact, recent and remote memory grossly intact. Results & Data Results & Data ([facility]) Vital Signs (Past 12 Hours) Vital Signs Temp Pulse Pulse Resp BP BP Pulse Ox 05/16/20 20:05 36.8 C 90 20 151/79 H 100 05/16/20 18:30 115 H 19 157/101 H 100 05/16/20 18:20 103 H 20 100 05/16/20 18:15 97 H 22 161/78 H 100 05/16/20 18:10 107 H 24 95 05/16/20 18:00 85 24 148/61 H 99 05/16/20 17:50 80 23 100 05/16/20 17:45 79 22 157/66 H 100 05/16/20 17:40 81 18 100 05/16/20 17:30 101 H 12 146/79 H 05/16/20 17:20 83 26 H 100 05/16/20 17:15 81 28 H 152/72 H 100 05/16/20 17:10 94 H 35 H 100 05/16/20 17:01 87 16 100 05/16/20 17:00 90 31 H 157/77 H 100 05/16/20 16:50 86 26 H 100 05/16/20 16:45 93 H 23 148/85 H 100 05/16/20 16:40 89 32 H 100 05/16/20 16:31 97 H 24 100 05/16/20 16:30 98 H 32 H 158/76 H 100 05/16/20 16:20 105 H 24 100 05/16/20 16:15 81 37 H 145/71 H 100 05/16/20 16:10 80 39 H 100 05/16/20 16:01 94 H 31 H 100 05/16/20 16:00 88 36 H 152/81 H 100 05/16/20 15:50 83 26 H 100 05/16/20 15:45 87 20 141/67 H 99 05/16/20 15:40 80 31 H 100 05/16/20 15:31 80 19 100 05/16/20 15:30 81 25 H 152/66 H 100 05/16/20 15:20 67 25 H 100 05/16/20 15:15 81 18 143/70 H 100 05/16/20 15:10 84 23 05/16/20 15:00 88 32 H 144/72 H 05/16/20 14:50 86 22 99 05/16/20 14:45 83 30 H 142/67 H 100 05/16/20 14:40 83 44 H 94 05/16/20 14:31 97 H 20 133/96 100 05/16/20 14:30 101 H 26 H 05/16/20 14:20 84 19 05/16/20 14:15 102 H 15 134/76 100 05/16/20 14:10 109 H 19 97 05/16/20 14:00 75 30 H 113/74 100 05/16/20 13:50 82 27 H 100 05/16/20 13:45 83 26 H 129/57 L 100 05/16/20 13:40 87 25 H 05/16/20 13:31 70 17 124/64 100 05/16/20 13:30 79 19 05/16/20 13:20 76 15 100 05/16/20 13:15 71 21 116/63 05/16/20 13:10 71 19 100 05/16/20 13:01 77 17 100 05/16/20 13:00 68 16 115/61 100 05/16/20 12:50 72 17 100 05/16/20 12:45 69 17 123/53 L 100 05/16/20 12:40 69 22 100 05/16/20 12:31 80 32 H 100 05/16/20 12:30 68 24 116/57 L 100 05/16/20 12:20 98 H 26 H 100 05/16/20 12:15 101 H 29 H 95/68 L 97 05/16/20 12:10 113 H 40 H 100 05/16/20 12:00 92 H 17 104/60 97 05/16/20 11:50 88 25 H 97 05/16/20 11:45 65 16 111/62 99 05/16/20 11:40 81 15 98 05/16/20 11:31 96 H 22 99 05/16/20 11:30 69 21 115/60 98 05/16/20 11:20 83 24 97 05/16/20 11:15 85 28 H 111/63 99 05/16/20 11:10 80 19 95 05/16/20 11:01 91 H 30 H 100 05/16/20 11:00 36.7 C 90 33 H 117/61 98 05/16/20 10:40 104 H 18 127/74 95 05/16/20 10:25 106 H 18 125/68 95 05/16/20 09:00 88 05/16/20 08:50 36.6 C 90 20 152/88 H 98 Laboratory Results Short CBC 05/15/20 05/16/20 Range/Units 03:43 06:36 WBC 8.16 6.20 (4.8-10.8) K/uL Hgb 12.9 13.1 (12.0-16.0) g/dL Hct 37.3 39.8 (37-47) % Plt Count 238 243 (130-400) K/uL BMP 05/16/20 06:36 Sodium 137 Potassium 3.9 Chloride 106 Carbon Dioxide 23 BUN 11 Creatinine 0.55 L Glucose 110 H Calcium 8.6 Medications Administered Current Inpatient Medications Acetaminophen (Tylenol) 650 mg PO Q4H PRN PRN Reason: Pain or Fever Stop: 06/13/20 17:42 Last Admin: 05/15/20 18:10 Dose: 650 mg Documented by: Al Hydrox/Mg Hydrox/Simethicone (Maalox) 15 ml PO Q4H PRN PRN Reason: Dyspepsia Stop: 06/13/20 17:42 Aspirin (Ecotrin Ectab) 81 mg PO QAM [facility] Stop: 06/16/20 08:59 Dextrose (Dextrose 50%) 25 - 50 ml IV UD PRN; Protocol PRN Reason: Hypoglycemia Protocol Stop: 06/13/20 17:42 Glucagon (Glucagen) 1 mg SQ UD PRN; Protocol PRN Reason: Hypoglycemia Protocol Stop: 06/13/20 17:42 Glucose (Dex4 Glucose) 4 - 8 tabs PO UD PRN; Protocol PRN Reason: Hypoglycemia Protocol Stop: 06/13/20 17:42 Glucose (Glucose 40%) 15 - 30 gm PO UD PRN; Protocol PRN Reason: Hypoglycemia Protocol Stop: 06/13/20 17:42 Heparin Sodium/Dextrose (Heparin Sodium/Dextrose) 25,000 units in 500 mls @ 17 mls/hr IV .Q24H [facility]; Protocol Stop: 06/13/20 18:59 Last Titration: 05/16/20 07:50 Dose: 850 units/hr, 17 mls/hr Documented by: Sodium Chloride (Nss 1000ml) 1,000 mls @ 51 mls/hr IV .[id number] [facility] Stop: 06/15/20 00:00 Last Infusion: 05/16/20 20:08 Dose: Infused Documented by: Insulin Aspart (Novolog Flexpen) 0 units SC ACHS [facility] Stop: 06/14/20 16:29 Last Admin: 05/16/20 18:46 Dose: 1 units Documented by: Insulin Glargine (Lantus Solostar Pen) 0 units SQ PM [facility]; Protocol Stop: 06/13/20 20:59 Last Admin: 05/15/20 21:31 Dose: 10 units Documented by: Magnesium Hydroxide (Milk Of Magnesia) 30 ml PO Q12H PRN PRN Reason: Constipation Stop: 06/13/20 17:42 Metoprolol Tartrate (Lopressor) 25 mg PO BID [facility] Stop: 06/15/20 20:59 Miscellaneous (Carbohydrates For Hypoglycemia) 15 - 30 gm PO UD PRN PRN Reason: Hypoglycemia Protocol Stop: 06/13/20 17:42 Multivitamins/Minerals (Multivitamin W/ Minerals Tab) 1 tab PO QAM [facility] Stop: 06/14/20 08:59 Last Admin: 05/16/20 07:58 Dose: 1 tab Documented by: Nitroglycerin (Nitrostat) 0.4 mg SL UD PRN PRN Reason: Chest Pain Stop: 06/13/20 17:42 Ondansetron HCl (Zofran) 4 mg IV Q6H PRN PRN Reason: Nausea Stop: 06/13/20 17:42 Polyethylene Glycol (Miralax Powder Packet) 17 gm PO DAILY PRN PRN Reason: Constipation Stop: 06/13/20 17:42 Ticagrelor (Brilinta) 90 mg PO BID [facility] Stop: 06/15/20 20:59
[2020-05-16] MEDS: METOPROLOL TARTRATE 25 MG TAB PO SCH (21:50)
[2020-05-16] MEDS: TICAGRELOR 90 MG TAB PO SCH (21:50)
[2020-05-16] MEDS: INSULIN GLARGINE SOLOSTAR 100 UNITS/ML 3 ML PEN SQ SCH (21:50)
[2020-05-16] MEDS: SODIUM CHLORIDE 0.9% 1000ML 1,000 ML IV SCH (21:53)
[2020-05-16] MEDS: HEPARIN SODIUM/DEXTROSE 25,000 UNITS/500 ML BAG IV SCH (23:36)
[2020-05-17 04:40] LABS: Hemoglobin 12.4 g/dL (12.0-16.0); Mean Corpuscular Hemoglobin 28.3 pg (25-34); Mean Corpuscular Hgb Conc 32.6 g/dL (32-36); Mean Corpuscular Volume 86.8 fL (80-100); Mean Platelet Volume 11.2 fL (7.4-10.4); Platelet Count 260 K/uL (130-400); RDW Coefficient of Variation 12.6 % (11.5-14.5); RDW Standard Deviation 40.4 fL (36.4-46.3); Red Blood Count 4.38 M/uL (4.2-5.4); White Blood Count 8.22 K/uL (4.8-10.8)
[2020-05-17 04:56] LABS: BUN Creatinine Ratio 17.5 (10-20); Calcium 8.9 mg/dl (8.5-10.1); Creatinine Clr Calc Pharmacy 83.4 ml/min; Est GFR (Non-African American) 99.2
[2020-05-17 06:05] LABS: Partial Thromboplastin Ratio 1.9
[2020-05-17 06:08] LABS: Partial Thromboplastin Time 54.1 Seconds (21.0-31.0)
--- NOTE | 2020-05-17 08:13 | Cardiology Progress Note ---
Date of Service May 17, 2020 Assessment & Plan (1) Substernal chest pain: (2) Dysarthria: (3) Chest pain: (4) History of TIA (transient ischemic attack): (5) MELAS (mitochondrial encephalopathy, lactic acidosis and stroke-like episodes): (6) Type 1 diabetes mellitus: (7) NSTEMI (non-ST elevated myocardial infarction): (8) CAD (coronary artery disease): Patient underwent cardiac catheterization yesterday and received 1 drug- eluting stent to the proximal LAD. She was also found to have subtotal occlusion of the distal PDA with collaterals and medical management recommended. She will continue aspirin 81 mg daily and Brilinta 90 mg twice daily for 1 year. We discussed if Brilinta is prohibitively expensive, she will notify our clinic and will transition to Plavix. Medication compliance without missed doses also discussed. Patient is not interested in cardiac rehab due to lack of transportation. She has a long history of statin intolerance. She is willing to consider PCSK9 inhibitor. We will proceed with authorization through [facility] clinic for Repatha/Praluent based on insurance coverage. Stable for discharge from a cardiac perspective. [facility] cardiology office will call patient to arrange follow-up within 2 to [address] Thomas (primary benzene washer operator) or PA. Patient is agreeable to this plan. Supervising Physician Co-Signing Physician Notes I have reviewed the medical record and discussed the case with Quynh Marrero. I have seen and examined the patient. Her catheterization site looks good. All questions were answered. I will discontinue her heparin, otherwise agree with the outlined plan. She can be discharged today to outpatient follow-up. Subjective Patient sitting up in bed and resting comfortably this morning. She denies recurrent chest pain or unusual shortness of breath overnight. Anxious to go home. Cath site healing without pain or bleeding. She denies dizziness, syncope or near syncope. No palpitations. No orthopnea, PND, lower extremity edema. No fever, cough, chills. Review of Systems Review of Systems: All systems reviewed & are unremarkable except as noted in HPI & below Physical Exam Constitutional: WD/WN, vitals as above well developed; no acute distress Neck: normal visual inspection Respiratory: normal respiratory effort, lungs clear to auscultation Cardiovascular: RRR, no murmur, no edema Gastrointestinal (Abdomen): normal bowel sounds, soft, nontender, no hepatosplenomegaly Musculoskeletal: no cyanosis or clubbing, extremities motor strength 5/5 Neurologic: PERRL, EOMI, accommodation nl, no face palsy, no dysarthria Psychiatric: A+Ox3, euthymic affect Results & Data Vital Signs (Past 12 Hours) Vital Signs Temp Pulse Resp BP Pulse Ox 05/17/20 03:50 36.5 C 76 18 120/77 96 Laboratory Results 05/17/20 05/17/20 05/17/20 Range/Units 07:50 05:25 04:11 WBC (4.8-10.8) K/uL RBC (4.2-5.4) M/uL Hgb (12.0-16.0) g/dL Hct (37-47) % MCV (80-100) fL MCH (25-34) pg MCHC (32-36) g/dL RDW Std Deviation (36.4-46.3) fL RDW Coeff of Marj (11.5-14.5) % Plt Count (130-400) K/uL MPV (7.4-10.4) fL APTT 54.1 H* (21.0-31.0) Seconds PTT Ratio 1.9 Sodium 137 (136-145) mmol/L Potassium 4.0 (3.5-5.1) mmol/L Chloride 106 (98-107) mmol/L Carbon Dioxide 24 (21-32) mmol/L Anion Gap 7.0 (3-11) BUN 10 (7-18) mg/dl Creatinine 0.56 L (0.6-1.2) mg/dl Est Cr Clr Drug Dosing 83.4 ml/min Est GFR ( Amer) 115.0 Est GFR (Non-Af Amer) 99.2 BUN/Creatinine Ratio 17.5 (10-20) Glucose 125 H (70-99) mg/dl POC Glucose 115 H (70-99) mg/dl Calcium 8.9 (8.5-10.1) mg/dl 05/17/20 05/17/20 05/16/20 Range/Units 04:11 03:47 21:45 WBC 8.22 (4.8-10.8) K/uL RBC 4.38 (4.2-5.4) M/uL Hgb 12.4 (12.0-16.0) g/dL Hct 38.0 (37-47) % MCV 86.8 (80-100) fL MCH 28.3 (25-34) pg MCHC 32.6 (32-36) g/dL RDW Std Deviation 40.4 (36.4-46.3) fL RDW Coeff of Marj 12.6 (11.5-14.5) % Plt Count 260 (130-400) K/uL MPV 11.2 H (7.4-10.4) fL APTT (21.0-31.0) Seconds PTT Ratio Sodium (136-145) mmol/L Potassium (3.5-5.1) mmol/L Chloride (98-107) mmol/L Carbon Dioxide (21-32) mmol/L Anion Gap (3-11) BUN (7-18) mg/dl Creatinine (0.6-1.2) mg/dl Est Cr Clr Drug Dosing ml/min Est GFR ( Amer) Est GFR (Non-Af Amer) BUN/Creatinine Ratio (-20) Glucose (70-99) mg/dl POC Glucose 138 H 142 H (70-99) mg/dl Calcium (8.5-10.1) mg/dl 05/16/20 05/16/20 05/16/20 Range/Units 16:24 13:54 11:12 WBC (4.8-10.8) K/uL RBC (4.2-5.4) M/uL Hgb (12.0-16.0) g/dL Hct (37-47) % MCV (80-100) fL MCH (25-34) pg MCHC (32-36) g/dL RDW Std Deviation (36.4-46.3) fL RDW Coeff of Marj (11.5-14.5) % Plt Count (130-400) K/uL MPV (7.4-10.4) fL APTT 46.5 H* (21.0-31.0) Seconds PTT Ratio 1.7 Sodium (136-145) mmol/L Potassium (3.5-5.1) mmol/L Chloride (98-107) mmol/L Carbon Dioxide (21-32) mmol/L Anion Gap (3-11) BUN (7-18) mg/dl Creatinine (0.6-1.2) mg/dl Est Cr Clr Drug Dosing ml/min Est GFR ( Amer) Est GFR (Non-Af Amer) BUN/Creatinine Ratio (10-20) Glucose (70-99) mg/dl POC Glucose 112 H 137 H (70-99) mg/dl Calcium (8.5-10.1) mg/dl 05/16/20 Range/Units 10:31 WBC (4.8-10.8) K/uL RBC (4.2-5.4) M/uL Hgb (12.0-16.0) g/dL Hct (37-47) % MCV (80-100) fL MCH (25-34) pg MCHC (32-36) g/dL RDW Std Deviation (36.4-46.3) fL RDW Coeff of Marj (11.5-14.5) % Plt Count (130-400) K/uL MPV (7.4-10.4) fL APTT (21.0-31.0) Seconds PTT Ratio Sodium (136-145) mmol/L Potassium (3.5-5.1) mmol/L Chloride (98-107) mmol/L Carbon Dioxide (21-32) mmol/L Anion Gap (3-11) BUN (7-18) mg/dl Creatinine (0.6-1.2) mg/dl Est Cr Clr Drug Dosing ml/min Est GFR ( Amer) Est GFR (Non-Af Amer) BUN/Creatinine Ratio (10-20) Glucose (70-99) mg/dl POC Glucose 131 H (70-99) mg/dl Calcium (8.5-10.1) mg/dl Diagnostic Findings Telemetry reviewed: Normal sinus rhythm without arrhythmias. Rare ectopy. Cath Summary: The patient has a 70 to 80% eccentric stenosis of the proximal LAD. The left circumflex in the main portion of the AV groove artery has minor nonobstructive disease but it does have several small marginal branches which are diffusely diseased and atretic with a single large marginal branch being widely patent. The right coronary artery has a subtotal stenosis in the distal PDA with left to right collaterals filling the distal portion of the PDA. Patient received 1 VÍCTOR to the prox LAD with good results Medications Administered Current Inpatient Medications Acetaminophen (Tylenol) 650 mg PO Q4H PRN PRN Reason: Pain or Fever Stop: 06/13/20 17:42 Last Admin: 05/15/20 18:10 Dose: 650 mg Documented by: Al Hydrox/Mg Hydrox/Simethicone (Maalox) 15 ml PO Q4H PRN PRN Reason: Dyspepsia Stop: 06/13/20 17:42 Aspirin (Ecotrin Ectab) 81 mg PO QAM [facility] Stop: 06/16/20 08:59 Last Admin: 05/17/20 10:09 Dose: 81 mg Documented by: Dextrose (Dextrose 50%) 25 - 50 ml IV UD PRN; Protocol PRN Reason: Hypoglycemia Protocol Stop: 06/13/20 17:42 Glucagon (Glucagen) 1 mg SQ UD PRN; Protocol PRN Reason: Hypoglycemia Protocol Stop: 06/13/20 17:42 Glucose (Dex4 Glucose) 4 - 8 tabs PO UD PRN; Protocol PRN Reason: Hypoglycemia Protocol Stop: 06/13/20 17:42 Glucose (Glucose 40%) 15 - 30 gm PO UD PRN; Protocol PRN Reason: Hypoglycemia Protocol Stop: 06/13/20 17:42 Heparin Sodium/Dextrose (Heparin Sodium/Dextrose) 25,000 units in 500 mls @ 17 mls/hr IV .Q24H [facility]; Protocol Stop: 06/13/20 18:59 Last Titration: 05/17/20 06:28 Dose: 850 units/hr, 17 mls/hr Documented by: Sodium Chloride (Nss 1000ml) 1,000 mls @ 51 mls/hr IV .[id number] [facility] Stop: 06/15/20 00:00 Last Admin: 05/16/20 21:53 Dose: 51 mls/hr Documented by: Insulin Aspart (Novolog Flexpen) 0 units SC ACHS [facility] Stop: 06/14/20 16:29 Last Admin: 05/17/20 10:08 Dose: 2 units Documented by: Insulin Glargine (Lantus Solostar Pen) 0 units SQ PM [facility]; Protocol Stop: 06/13/20 20:59 Last Admin: 05/16/20 21:50 Dose: 10 units Documented by: Magnesium Hydroxide (Milk Of Magnesia) 30 ml PO Q12H PRN PRN Reason: Constipation Stop: 06/13/20 17:42 Metoprolol Tartrate (Lopressor) 25 mg PO BID [facility] Stop: 06/15/20 20:59 Last Admin: 05/17/20 10:09 Dose: 25 mg Documented by: Miscellaneous (Carbohydrates For Hypoglycemia) 15 - 30 gm PO UD PRN PRN Reason: Hypoglycemia Protocol Stop: 06/13/20 17:42 Multivitamins/Minerals (Multivitamin W/ Minerals Tab) 1 tab PO QAM [facility] Stop: 06/14/20 08:59 Last Admin: 05/17/20 10:09 Dose: 1 tab Documented by: Nitroglycerin (Nitrostat) 0.4 mg SL UD PRN PRN Reason: Chest Pain Stop: 06/13/20 17:42 Ondansetron HCl (Zofran) 4 mg IV Q6H PRN PRN Reason: Nausea Stop: 06/13/20 17:42 Polyethylene Glycol (Miralax Powder Packet) 17 gm PO DAILY PRN PRN Reason: Constipation Stop: 06/13/20 17:42 Ticagrelor (Brilinta) 90 mg PO BID [facility] Stop: 06/15/20 20:59 Last Admin: 05/17/20 10:09 Dose: 90 mg Documented by:
[2020-05-17] MEDS ORDERED: ASPIRIN 81 MG ECTAB PO SCH (09:00)
[2020-05-17] MEDS: INSULIN ASPART 100 UNITS/ML 3 ML PEN SC SCH ×2 (10:08→12:30)
[2020-05-17] MEDS: CEROVITE ADV FORMULA TAB PO SCH (10:09)
[2020-05-17] MEDS: METOPROLOL TARTRATE 25 MG TAB PO SCH (10:09)
[2020-05-17] MEDS: TICAGRELOR 90 MG TAB PO SCH (10:09)
[2020-05-17 11:20] LABS: Partial Thromboplastin Ratio 1.9
[2020-05-17 11:56] LABS: Partial Thromboplastin Time 54.1 Seconds (21.0-31.0)
--- NOTE | 2020-05-17 16:05 | Discharge Summary ---
Date of Service May 17, 2020 Admission HPI Per Admitting Provider This is a 64-year-old female who has significant past medical history of type 1 diabetes mellitus, polyneuropathy, MELAS follows Dr. Larson, history of TIA, Mnire's disease, sensorineural hearing loss with cochlear implant in place, HTN, HLD who presents to ED secondary to chest pain x30 minutes prior to arrival. She states that she was outside trying to move a tarp for feel to be delivered. When she pulled on that sharp to move it she developed significant sharp substernal, left-sided chest pain that radiated down left arm with associated numbness and tingling. She also had associated shortness of breath, dysarthria, "feeling foggy," dizziness, and very fatigued. She immediately went inside and took a full dose aspirin and called her son to call EMS. Symptoms lasted for approximately 20 to 30 minutes before resolving. Upon arrival to ED she was chest pain-free, although she still felt like she was dysarthric and was having trouble with word finding. She did go over for CT evaluation and immediately after CT with mask on the chest pain returned with associated shortness of breath. Daughter at bedside felt this was secondary to, "anxiety attack." He has never had anxiety attack in the past but symptoms resolved within 20 minutes from returning to ED room. She denies any recent illness, fever, chills, sweats, syncope, lightheaded, RENO, orthopnea, PND, heart palpitations, cough, hemoptysis, nausea, emesis, abdominal pain, change in bowel or urinary habits. Prior to today's event she denies any chest pain or dyspnea on exertion. She states she occasionally gets numbness and tingling in hands secondary to neuropathy but has never had chest pain as severe as this. She denies hearing any pop after pulling a tarp. She currently does live alone and is insulin-dependent diabetic. She last took Lantus last evening but has not taken any short acting insulin this morning. Last meal was at breakfast. She denies any recent weight gain, loss or edema. Her appetite is otherwise been at baseline. She does elicit history of multiple TIAs in the past in which she follows with [facility] neurology. She does have known MELAS as does her daughter. + FH of CAD with father suffering NV in 50s and mother in her 70s. Also of significance patient did have a fall 2 weeks prior. In ED patient did remain hemodynamically stable. She was mildly tachycardic. Upon initial evaluation she was hypertensive BP 177/79. Upon return from CAT scan she also was tachycardic and tachypneic, but this has since resolved. Her CBC was generally unremarkable, mildly elevated BUN 19 creatinine 0.81, glucose 249, Chauncey 1.9, troponin 0.017, proBNP 40, lipase 140, TSH 2.06. Chest x-ray, head and neck CTA were negative for acute abnormality. Head CT was negative for acute abnormality, chronic microvascular disease noted. EKG revealed normal sinus rhythm heart rate 96, Septal infarct. Admission Exam Per Admitting Provider Constitutional: Petite, female, WD/WN, vitals as above, NAD, sitting up in bed, pleasant, conversing easily Head: Normocephalic, Atraumatic Eyes: PERRL, conjunctivae normal, anicteric sclerae ENMT: Positive hearing device in place, external ear and nose normal, oropharynx normal Neck: trachea midline, no thyromegaly normal visual inspection Respiratory: Tachypnea RR 26, lungs clear to auscultation, right base crackle, otherwise no wheeze or rhonchi noted. No accessory muscle use Cardiovascular: RRR, no murmur, no edema Vessels: no JVD or carotid bruit Chest: normal inspection of chest, pain to palpation to left chest wall inferior to left breast, no erythema or rash noted Abdomen: normal bowel sounds, soft, nontender, no hepatosplenomegaly Musculoskeletal: no cyanosis or clubbing, extremities motor strength 5/5 Skin: no rashes, warm and dry normal turgor, healing 1 cm laceration above left eyebrow Neurologic: PERRL, EOMI, accommodation nl, no face palsy, no dysarthria CN's II-XI intact bilaterally and moves all extremities Psychiatric: A+Ox3, euthymic affect Lymphatic: no cervical or axillary lymphadenopathy : deferred Principal Diagnosis NSTEMI 2/2 CAD s/p stent Type I DM Discharge Exam CONSTITUTIONAL: WNWD, vitals as above, generally well-appearing EYES: normal conjunctivae, no scleral icterus ENT: external ear and nose normal, MMM RESPIRATORY: clear to auscultation bilaterally, no crackles, rales or wheezes, normal respiratory effort CARDIOVASCULAR: regular rate and rhythm, S1 and 2 heard without murmurs, gallops or rubs, no JVD, no peripheral edema GASTROINTESTINAL: soft, nontender, nondistended MUSCULOSKELETAL: strength 5/5 throughout, head is normocephalic and atraumatic SKIN: warm and dry, right hand warm and well perfused, TR band is off. NEUROLOGIC: No facial palsy, no dysarthria. Touch, pain and proprioception normal. CN 2-12 grossly intact, no sensory deficit, normal cognition, normal speech, no tremor PSYCHIATRIC: alert cooperative and oriented to person, place and time. Euthymic mood, makes good eye contact, language grossly intact, recent and remote memory grossly intact. Discharge Data Allergies Allergy/AdvReac Type Severity Reaction Status Date / Time atorvastatin AdvReac Unknown UNKNOWN Unverified 05/14/20 13:24 prednisone AdvReac Unknown UNKNOWN Unverified 05/14/20 13:24 Consultations 05/14/20 15:38 ED Decision to Admit Stat 05/14/20 17:43 Consult Neurology Routine 05/14/20 18:49 Consult Cardiology Routine Procedures Performed Operation Date: 05/16/20 09:30 Actual Procedures s Drug Eluting Stent SGl Vessel - Elder Wallace MD p Cath, Coronaries ONLY (no LV) - Mian Sanchez DO s Cineradiography w/Routine Exam - Mian Sanchez DO Ordered Studies 05/14/20 13:39 CT angio chest PE protocol Stat CT angio neck with con Stat CT head/brain wo con Stat 05/14/20 13:41 CT angio head w con Stat 05/15/20 08:00 CT head/brain wo con Routine 05/16/20 08:04 CL Cath Imgs for PACS use only Routine Hospital Course (1) NSTEMI (non-ST elevated myocardial infarction): (2) Type 1 diabetes mellitus: (3) MELAS (mitochondrial encephalopathy, lactic acidosis and stroke-like episodes): (4) Hypertriglyceridemia: 64-year-old female with a history of lifelong type 1 diabetes mellitus with polyneuropathy and MELAS status post cochlear implant presented initially with chest pain that lasted approximately 30 minutes. In the ER diagnostics included intravenous contrast administration. She reported this increased her chest pain significantly overwhelming her and causing her dysarthria, a symptom that has been known to present in her in the past when she becomes fatigued or ill. Her dysarthria resolved quickly and no aphasia was present. As a result there was a concern initially for a TIA and neurology was consulted. She was notably hard of hearing with a cochlear implant in place. CT head was reviewed with artifact in the implant impairing image quality but there was no evidence of a previous stroke. MELAS is typically associated with ischemic strokes and a recommendation was made to continue her home aspirin. Cardiology was consulted and recommended a cardiac catheterization as her risk for heart disease was elevated. She subsequently underwent a cardiac catheterization on 05/16/2020 and will received one drug-eluting stent to the proximal LAD. She was also found to have subtotal occlusion of the distal PDA with collaterals for which medical management was recommended. She will continue aspirin at the reduced dose of 81 mg daily and Brilinta 90 mg twice daily was added for 1 year. (The rosen was checked with her pharmacy prior to discharge and was not prohibitively expensive.) She was also was continued on metoprolol and given a small dose of lisinopril at discharge. She has a known statin intolerance and is being considered for a PKS9 inhibitor. At time of discharge she was mentating and ambulating at baseline and tolerating p.o. She was sent home in stable condition with close primary care and cardiology follow-up recommended. Total Time Total Time Spent Total Time Spent (In Minutes): 60 Total Time Includes: Examination of the Patient, Discharge Planning, Medication Reconciliation and Communication With Other Providers Discharge Plan Discharge Items Patient Disposition: Home - Self-Care Reason For Visit: CHEST PAIN,DYSARTHRIA Discharge Diagnosis: NSTEMI 2/2 CAD s/p stent Type I DM Condition on Discharge: Good Activity: Resume your previous activity Non-emergency contact: Primary Care Provider Call non-emergency contact if: you have any medication questions, your symptoms worsen, your pain is not controlled, your pain is worsening, your pain is unusual for you, your pain is concerning for you and you have a fever Follow-up/Referrals: Amairani Boyd MD [Primary Care Provider] - 05/23/20 11:40 am (05/23/2020 11:40 AM Provider Amairani Ramirez MD Department [facility] ) Diet: Carb Count or DM1 Addtl Attending Provider Instructions: Please take all medications as instructed on discharge list below. Please follow-up with Cardiology as instructed: 06/15/2020 3:00 PM Quynh Marrero PA-C Cardiology, [facility] Please follow-up with your primary care physician as instructed above. You have been put on medication which requires repeat non-fasting bloodwork in two weeks to check your kidney function and electrolytes. This can be ordered at your follow-up visit. It was a pleasure taking care of you! Please call if you have any questions or problems. You can reach a [facility] hospitalist on duty at [facility] 24 hours a day by calling [phone]. Take care of yourself. Laney Murcia, [facility]ist Pending Studies at Discharge: No Stand-Alone Forms: My [facility], Smoking Cessation Medications and DC Order Prescriptions: New Brilinta 90 mg Tablet 90 mg PO BID Qty: 60 RF: 2 metoprolol tartrate 25 mg Tablet 25 mg PO BID Qty: 60 RF: 2 nitroglycerin [Nitrostat] 0.4 mg Tablet, Sublingual 0.4 mg sublingual UD PRN (Reason: chest pain) Qty: 30 RF: 1 aspirin 81 mg Tablet,Delayed Release (Dr/Ec) 81 mg PO QAM Qty: 90 RF: 1 lisinopril 2.5 mg tablet 2.5 mg PO DAILY Qty: 30 RF: 1 Continued insulin aspart U-100 [Novolog Flexpen U-100 Insulin] 100 unit/mL (3 mL) insulin pen 2 - 4 unit SUBCUT AC RF: 0 Evelyn-D 24 Hour 180-240 mg Tablet Extended Release 24 Hr 1 tab PO QAM RF: 0 Lantus Solostar U-100 Insulin 100 unit/mL (3 mL) Insulin Pen 10 - 20 unit SUBCUT PM RF: 0 Lipotriad Vision Support 12,500 unit- 12.5 mg Capsule 1 cap PO QAM RF: 0 Discontinued aspirin 325 mg Tablet 325 mg PO QAM RF: 0 Discharge Orders: Discharge Order (Routine); Ordered 05/17/20 Ordered By: Laney Rowley/Other Patient Handouts: Managing Diabetes: The A1C Test Admission Data Admit Date/Time: 05/14/20 16:01 Attending Provider: Laney Murcia Admit Provider: Chilo Aparicio Primary Care Provider: Amairani Boyd Other Providers: Marquez Larsen ; Mian Sanchez Other Interventions: Discharge Summary Assessment (RN) Last Done: 05/17/20 16:23 DC Date/Time DO NOT enter until pt leaves facility: 05/17/20 17:20
== END 2020-05-17 17:20 | disposition home or self-care (01) | DRG 247 ==
LOC: 2N 11:49 → ED 11:49 → SUATTDRO 16:01 → 1E 05-16 11:11
PROC: CLB.CCO (2020-05-16 09:30)

== ENCOUNTER 2021-08-10 17:38 | Inpatient (IN) ==
[2021-08-10] MEDS ORDERED: SODIUM CHLORIDE 0.9% 1000ML 1,000 ML IV SCH ×2 (17:45→22:45)
--- NOTE | 2021-08-10 17:48 | Emergency Department Note ---
Impression & Plan TIA (transient ischemic attack) ED Provider Note NAME: WINNIE DONG AGE: 65 SEX: F : 1955 ARRIVES VIA: Ambulance INFORMANT: Patient, EMS ED PROVIDER(S): Grzegorz Olivas DO CHIEF COMPLAINT: Strokelike symptoms HPI: The patient is a 65-year-old female who presented to the emergency department for an evaluation of strokelike symptoms. The patient went to the garage to get her vehicle today she left the garage between 3 and 330. She thinks just around 330 this afternoon she started noticing that she did not feel well. She had the feeling as though she was going to pass out and everything was going to go black. The patient states that she started noticing that she was having difficulty speaking and forming words. The patient initially took 2 baby aspirin. The symptoms did not improve so she took 2 more baby aspirin for a total of 4 baby aspirin. She called 911. The patient arrived via ambulance. Initially I did receive a prehospital notification about this patient. They were asking about the possibility of making the patient a stroke alert given her past medical history. She does have a history of diabetes in the past. She is also had a heart attack. The patient states that she has been compliant with her outpatient medicines. At that time she was not made a stroke alert initially because she only lost points for not being able to hold both legs off of the bed and her weakness appeared symmetric. Upon arrival the patient was also complaining of difficulty forming words. According to the patient her speech is not at baseline. She states that this began at the same time as the other symptoms. She denies having any headache. She denies having any chest pain. She denies having lower swelling. ROS: See above HPI for pertinent positives & negatives. A total of 10 systems reviewed and were otherwise negative. PAST MEDICAL HISTORY: See Below PAST SURGICAL HISTORY: See Below FAMILY HISTORY: See Below SOCIAL HISTORY: See Below HOME MEDICATIONS: See Below ALLERGIES: See Below VITALS: See Below PHYSICAL EXAMINATION: GENERAL: Patient is awake alert in no acute distress patient is resting comfortably and showing no signs of anxiety EYES: The conjunctivae are clear. The pupils are round and reactive. EARS, NOSE, MOUTH AND THROAT: The nose is without any evidence of any deformity. NECK: The neck is nontender and supple. RESPIRATORY: Normal respiratory effort is noted there is no evidence of wheezing rhonchi or rales CARDIOVASCULAR: Regular rate and rhythm noted there no murmurs rubs or gallops normal S1 normal S2. GASTROINTESTINAL: The abdomen is soft. Abdomen is nontender. MUSCULOSKELETAL/EXTREMITIES: There is no evidence of gross deformity full range of motion is noted in the hips and shoulders. SKIN: There is no obvious evidence of any rash. There are no petechiae, pallor or cyanosis noted. NEUROLOGIC: Patient is awake alert and oriented x3. Speech is pressured but understandable. There was no facial droop. Patient is able to hold each leg off the bed for greater than 5 seconds. MEDICAL DECISION MAKING: The patient is a 65-year-old female who presented to the emergency department for neurologic symptoms. The patient had aphasia which initially was not thought to be her baseline. The patient was made a stroke alert after my initial evaluation. The patient was evaluated by the telestroke neurologist. Her symptoms did improve while she was in the emergency department. I re evaluated the patient multiple times. She did not appear to meet criteria for TPA given her rapidly improving symptoms. The patient was started on Plavix in the emergency department. I discussed the patient's laboratory and radiographic studies with her. I also discussed her case with the on-call [facility] hospitalist. They have agreed to evaluate the patient in the emergency department for further management and disposition. Triage Nursing notes reviewed. Prior medical records reviewed Vital Signs: reviewed and remarkable for no significant abnormalities Differential diagnosis: Infection, dehydration, metabolic abnormality, hypo/hyperglycemia, electrolyte disturbance, anemia, hypoxia, cardiac sources, intracerebral event, toxicologic, neurologic, as well as other pathologies. ER treatment provided: See below Diagnostics interpreted by me: ECG: ED EG was obtained in the emergency department. My interpretation is normal sinus rhythm at 91 bpm. There was no ectopy. Diffuse inferior and lateral ST depressions with T wave abnormalities were noted. This was compared to a tracing from May 162019. No significant changes were noted. Cardiac Monitoring: An order was placed for continuous cardiac monitoring. The monitor shows a rate of 70 bpm with sinus rhythm. Laboratory studies: As stated above and show below. Imaging studies: See below Consultation(s): 1809: I discussed this case with Dr. Bailey who is on-call for the telestroke neurology group at [facility]. She will evaluate the patient. 1924: I discussed this case with Dr. Erickson who is on-call for the [facility] hospitalist group. They will evaluate the patient in the emergency department. Past Med/Surg History Medical History (Updated 08/10/21 @ 22:03 by Grzegorz Olivas DO) Atherosclerosis of coronary artery History of TIA (transient ischemic attack) HLD (hyperlipidemia) Hypertension Macular degeneration MELAS (mitochondrial encephalopathy, lactic acidosis and stroke-like episodes) Mnire's disease Schatzki's ring Statin intolerance Type 1 diabetes mellitus Surgical History History of cholecystectomy History of cochlear implant Left in 2014 History of colonoscopy with polypectomy History of hysterectomy History of left heart catheterization 07/2019 which revealed 30% proximal LAD otherwise clean coronaries Family History Mother Coronary heart disease, Onset Age: 70 Father Coronary heart disease, Onset Age: 50 Social History Smoking Status: Never smoker Second Hand Exposure: No; Hx Alcohol Use: No Hx Substance Use: No Preferred Language: Bruneian Communication Ability: Effective Hearing Ability: Cochlear 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 Required: No Beliefs That Will Affect Care: None marital status: Current Living Situation: Alone current occupational status: disabled Feels Safe at Home: Yes Assistive Devices: None Allergies Allergies Allergy/AdvReac Type Severity Reaction Status Date / Time atorvastatin AdvReac Intermediate myalgias, Unverified 08/10/21 17:58 dysarthria prednisone AdvReac Intermediate metabolic-h Unverified 08/10/21 17:58 yperglycemi a Home Meds Home Medications Medication Instructions Recorded Confirmed insulin aspart U-100 100 unit/mL 2 - 4 unit SUBCUT AC 05/14/20 08/10/21 (3 mL) subcutaneous pen (Novolog Flexpen U-100 Insulin aspart) insulin glargine 100 unit/mL (3 0 unit SUBCUT PM 05/14/20 08/10/21 mL) subcutaneous pen (Lantus Solostar U-100 Insulin) vit A 12,500 unit-zinc 12.5 1 cap PO QAM 05/14/20 08/10/21 [id number]-[id number]-pbutw-bilberry-herb #261 capsule (Lipotriad Vision Support) amlodipine 2.5 mg tablet 2.5 mg PO DAILY 08/10/21 08/10/21 evolocumab 140 mg/mL subcutaneous 140 mg SUBCUT .[id number] 08/10/21 08/10/21 pen injector (Jaime NatanaelMarifer) famotidine 40 mg tablet 40 mg PO DAILY 08/10/21 08/10/21 fexofenadine 180 mg tablet 180 mg PO DAILY PRN 08/10/21 08/10/21 hydrocortisone-acetic acid 1 %-2 % 3 drp OTIC (EAR) BID PRN 08/10/21 08/10/21 ear drops lorazepam 0.5 mg tablet 0.5 mg PO Q6H PRN 08/10/21 08/10/21 Previous Rx's Medication Instructions Recorded aspirin 81 mg tablet,delayed 81 mg PO QAM #90 tab 05/17/20 release metoprolol tartrate 25 mg tablet 25 mg PO BID #60 tab 05/17/20 nitroglycerin 0.4 mg sublingual 0.4 mg SUBLINGUAL UD PRN #30 tab 05/17/20 tablet (Nitrostat) Results & Data (ED) Vital Signs Vital Signs - 24 hr 08/10/21 17:44 08/10/21 17:45 08/10/21 19:23 Temperature 36.9 C Temperature Source Oral Pulse Rate 83 60 Pulse Rate from SpO2 Sensor 61 Respiratory Rate 18 20 Respiratory Effort / Characteristics Non-Labored Spontaneous Respiratory Depth Normal Respiratory Pattern Regular Blood Pressure 140/83 140/83 151/107 H Blood Pressure Mean 102 102 121 Blood Pressure Position Lying Pulse Oximetry 98 97 Oxygen Delivery Method Room Air Room Air Sepsis Recent Fever Within 48 Hours No Sepsis New/Unexplained Change in Mental Status N/A Sepsis Action Taken by Nursing No Action Required 08/10/21 19:30 08/10/21 20:00 08/10/21 20:30 Temperature Temperature Source Pulse Rate 69 62 61 Pulse Rate from SpO2 Sensor 67 62 60 Respiratory Rate 23 26 H 24 Respiratory Effort / Characteristics Respiratory Depth Respiratory Pattern Blood Pressure 132/74 128/70 138/71 Blood Pressure Mean 93 89 93 Blood Pressure Position Pulse Oximetry 98 97 98 Oxygen Delivery Method Room Air Room Air Room Air Sepsis Recent Fever Within 48 Hours Sepsis New/Unexplained Change in Mental Status Sepsis Action Taken by Nursing 08/10/21 21:00 Temperature Temperature Source Pulse Rate 70 Pulse Rate from SpO2 Sensor 68 Respiratory Rate 20 Respiratory Effort / Characteristics Respiratory Depth Respiratory Pattern Blood Pressure 139/86 Blood Pressure Mean 103 Blood Pressure Position Pulse Oximetry 98 Oxygen Delivery Method Room Air Sepsis Recent Fever Within 48 Hours Sepsis New/Unexplained Change in Mental Status Sepsis Action Taken by Long Term Medications Current Medication List: was personally reviewed by me Laboratory Data Attestation: I reviewed the patient's lab results. Result diagrams: 08/10/21 17:50 08/10/21 17:50 Lab Results 08/10/21 08/10/21 08/10/21 Range/Units 17:50 17:50 17:50 WBC 9.85 (4.8-10.8) K/uL RBC 4.39 (4.2-5.4) M/uL Hgb 12.8 (12.0-16.0) g/dL Hct 37.9 (37-47) % MCV 86.3 (80-100) fL MCH 29.2 (25-34) pg MCHC 33.8 (32-36) g/dL RDW Std Deviation 40.9 (36.4-46.3) fL RDW Coeff of Marj 13.0 (11.5-14.5) % Plt Count 263 (130-400) K/uL MPV 11.4 H (7.4-10.4) fL Immature Gran % (Auto) 0.1 % Neut % (Auto) 56.1 % Lymph % (Auto) 34.8 % Cook % (Auto) 6.7 % Eos % (Auto) 1.7 % Baso % (Auto) 0.6 % Neut # (Auto) 5.52 (1.4-6.5) K/uL Lymph # (Auto) 3.43 H (1.2-3.4) K/uL Cook # (Auto) 0.66 H (0.11-0.59) K/uL Eos # (Auto) 0.17 (0-0.5) K/uL Baso # (Auto) 0.06 (0-0.2) K/uL Immature Gran # (Auto) 0.01 (0.00-0.02) K/uL PT 10.1 (9.0-12.0) Seconds INR 1.0 (0.9-1.1) APTT 27.8 (21.0-31.0) Seconds PTT Ratio 1.1 Sodium 137 (136-145) mmol/L Potassium 4.1 (3.5-5.1) mmol/L Chloride 104 (98-107) mmol/L Carbon Dioxide 25 (21-32) mmol/L Anion Gap 9.0 (3-11) BUN 16 (7-18) mg/dl Creatinine 0.82 (0.6-1.2) mg/dl Est Cr Clr Drug Dosing Not Reportable Est GFR ( Amer) 87.6 ml/min Est GFR (Non-Af Amer) 75.6 ml/min BUN/Creatinine Ratio 19.6 (10-20) Glucose 191 H (70-99) mg/dl Calcium 8.9 (8.5-10.1) mg/dl Magnesium 2.1 (1.8-2.4) mg/dl Total Bilirubin 0.2 (0.2-1) mg/dl AST 13 L (15-37) U/L ALT 14 (12-78) U/L Alkaline Phosphatase 92 (45-117) U/L Troponin I < 0.015 (0-0.045) ng/ml Total Protein 7.5 (6.4-8.2) gm/dl Albumin 3.7 (3.4-5.0) gm/dl Globulin 3.8 (2.5-4.0) gm/dl Albumin/Globulin Ratio 1.0 (0.9-2) COVID-19 Eval Order SARS-CoV-2 (PCR) (Negative) 08/10/21 08/10/21 Range/Units 18:44 18:44 WBC (4.8-10.8) K/uL RBC (4.2-5.4) M/uL Hgb (12.0-16.0) g/dL Hct (37-47) % MCV (80-100) fL MCH (25-34) pg MCHC (32-36) g/dL RDW Std Deviation (36.4-46.3) fL RDW Coeff of Marj (11.5-14.5) % Plt Count (130-400) K/uL MPV (7.4-10.4) fL Immature Gran % (Auto) % Neut % (Auto) % Lymph % (Auto) % Cook % (Auto) % Eos % (Auto) % Baso % (Auto) % Neut # (Auto) (1.4-6.5) K/uL Lymph # (Auto) (1.2-3.4) K/uL Cook # (Auto) (0.11-0.59) K/uL Eos # (Auto) (0-0.5) K/uL Baso # (Auto) (0-0.2) K/uL Immature Gran # (Auto) (0.00-0.02) K/uL PT (9.0-12.0) Seconds INR (0.9-1.1) APTT (21.0-31.0) Seconds PTT Ratio Sodium (136-145) mmol/L Potassium (3.5-5.1) mmol/L Chloride (98-107) mmol/L Carbon Dioxide (21-32) mmol/L Anion Gap (3-11) BUN (7-18) mg/dl Creatinine (0.6-1.2) mg/dl Est Cr Clr Drug Dosing Est GFR ( Amer) ml/min Est GFR (Non-Af Amer) ml/min BUN/Creatinine Ratio (10-20) Glucose (70-99) mg/dl Calcium (8.5-10.1) mg/dl Magnesium (1.8-2.4) mg/dl Total Bilirubin (0.2-1) mg/dl AST (15-37) U/L ALT (12-78) U/L Alkaline Phosphatase (45-117) U/L Troponin I (0-0.045) ng/ml Total Protein (6.4-8.2) gm/dl Albumin (3.4-5.0) gm/dl Globulin (2.5-4.0) gm/dl Albumin/Globulin Ratio (0.9-2) COVID-19 Eval Order Covid19 at [facility] SARS-CoV-2 (PCR) NEGATIVE (Negative) Administered Medications Sodium Chloride (Nss 1000ml) 1,000 mls @ 50 mls/hr IV .Q20H CLEMENTINA Stop: 09/09/21 17:44 Last Admin: 08/10/21 20:13 Dose: 50 mls/hr Documented by: [id number] Discontinued Medications Clopidogrel Bisulfate (Clopidogrel Bisulfate 300 Mg Tab) 300 mg PO NOW STA Stop: 08/10/21 19:01 Last Admin: 08/10/21 20:12 Dose: 300 mg Documented by: [id number] Ioversol (Optiray 320 125ml) 119 ml IV ONCE ONE Stop: 08/10/21 17:51 Last Admin: 08/10/21 17:51 Dose: 1 ml Documented by: [id number] Imaging Data Radiologist's Impression: Chest X-Ray 08/10/21 17:44 SINGLE VIEW CHEST CLINICAL HISTORY: Strokelike symptoms. FINDINGS: An AP, portable, upright chest radiograph is compared to study dated 05/14/2020. The cardiomediastinal silhouette is unremarkable. The lungs and pleural spaces are clear. No pneumothorax is seen. The skeletal structures are osteopenic. The bony thorax is grossly intact. IMPRESSION: No active disease in the chest. ACT 112: Negative or not required by law. Electronically signed by: Wilbert Lee M.D. 08/10/2021 7:[address] 08/10/21 17:[address] OF THE BRAIN; CT ANGIOGRAM OF THE BRAIN; CT ANGIOGRAM OF THE NECK CLINICAL HISTORY: Strokelike symptoms. COMPARISON STUDY: CT of the brain dated 05/15/2020. CT angiogram of the head and neck dated 05/14/2020. TECHNIQUE: Unenhanced axial CT scan of the brain is performed. Subsequently, following the IV administration of 119 of Optiray 320, CT angiogram of the head and neck was performed from the aortic arch to the vertex. Images are reviewed in the axial, sagittal, and coronal planes. 3-D MIPS images are created and assessed. IV contrast was administered without complication. All measurements were calculated based on NASCET criteria. A dose lowering technique was utilized adhering to the principles of ALARA. There is streak artifact from a cochlear implant. CT DOSE: 1033.19 mGy.cm FINDINGS: Brain parenchyma: There is age-related involutional change noting mlzr-is-riaeosey subcortical and periventricular microangiopathic disease. Mineralization is noted in the basal ganglia. There is no hemorrhage, mass effect, or evidence of acute territorial ischemia by CT criteria. There is no evidence of enhancing mass lesion on the angiogram phase images. The ventricles, sulci, and cisterns are prominent secondary to involutional change. Alcantara-white matter differentiation is preserved. No extra-axial fluid collection is seen. Thoracic aorta: Visualized portions of the thoracic aorta are normal in caliber. The aortic arch demonstrates bovine variant anatomy. Right carotid arterial system: The right common carotid artery is widely patent, as are the right internal and external carotid arteries. Mild calcified plaque is seen in the carotid bulb. Left carotid arterial system: The left common carotid artery is widely patent, as are the left internal and external carotid arteries. Vertebral arteries: The vertebral arteries are widely patent bilaterally and codominant. Subclavian arteries: Widely patent bilaterally. Intracranial vasculature: There is atherosclerotic calcification of the cavernous carotid and vertebral arteries. There is a small left posterior communicating artery. The internal carotid arteries are patent at the skull base, as are the anterior and middle cerebral arteries bilaterally. The vertebrobasilar system and posterior cerebral arteries are widely patent. The vertebral arteries are codominant. There is no aneurysm, high-grade stenosis, or focal vessel cut off seen throughout the intracranial circulation. Jugular veins: Patent bilaterally. Dural sinuses: Patent. Lung apices: Partially visualized upper lobe lung parenchyma appears clear. Soft tissues: The visualized pharyngeal soft tissues are normal in appearance noting angiographic phase technique. The oropharyngeal airway appears widely patent. The salivary and thyroid glands are normal in appearance. No cervical lymphadenopathy is seen. Skeletal structures: The skeletal structures are osteopenic. The calvarium appears intact. The cervical spine is within normal limits. No lytic or blastic lesion is seen. Orbits: The bony orbits are intact. Orbital contents are normal as visualized. Sinuses and mastoids: The paranasal sinuses are clear. There is a left mastoid effusion with evidence of previous left mastoid surgery and a cochlear implant. The right mastoid air cells are well pneumatized. IMPRESSION: 1. There is no evidence of hemorrhage, mass effect, or acute territorial ischemia by CT criteria noting streak artifact from a cochlear implant. 2. Unremarkable CT angiogram of the brain. 3. Unremarkable CT angiogram of the neck. ACT 112: Negative or not required by law. Electronically signed by: Wilbert Lee M.D. 08/10/2021 6:17 PM Head CTA 08/10/21 17:[address] OF THE BRAIN; CT ANGIOGRAM OF THE BRAIN; CT ANGIOGRAM OF THE NECK CLINICAL HISTORY: Strokelike symptoms. COMPARISON STUDY: CT of the brain dated 05/15/2020. CT angiogram of the head and neck dated 05/14/2020. TECHNIQUE: Unenhanced axial CT scan of the brain is performed. Subsequently, following the IV administration of 119 of Optiray 320, CT angiogram of the head and neck was performed from the aortic arch to the vertex. Images are reviewed in the axial, sagittal, and coronal planes. 3-D MIPS images are created and assessed. IV contrast was administered without complication. All measurements were calculated based on NASCET criteria. A dose lowering technique was utilized adhering to the principles of ALARA. There is streak artifact from a cochlear implant. CT DOSE: 1033.19 mGy.cm FINDINGS: Brain parenchyma: There is age-related involutional change noting tkeo-if-hgmstadt subcortical and periventricular microangiopathic disease. Mineralization is noted in the basal ganglia. There is no hemorrhage, mass effect, or evidence of acute territorial ischemia by CT criteria. There is no evidence of enhancing mass lesion on the angiogram phase images. The ventricles, sulci, and cisterns are prominent secondary to involutional change. Alcantara-white matter differentiation is preserved. No extra-axial fluid collection is seen. Thoracic aorta: Visualized portions of the thoracic aorta are normal in caliber. The aortic arch demonstrates bovine variant anatomy. Right carotid arterial system: The right common carotid artery is widely patent, as are the right internal and external carotid arteries. Mild calcified plaque is seen in the carotid bulb. Left carotid arterial system: The left common carotid artery is widely patent, as are the left internal and external carotid arteries. Vertebral arteries: The vertebral arteries are widely patent bilaterally and codominant. Subclavian arteries: Widely patent bilaterally. Intracranial vasculature: There is atherosclerotic calcification of the cavernous carotid and vertebral arteries. There is a small left posterior communicating artery. The internal carotid arteries are patent at the skull base, as are the anterior and middle cerebral arteries bilaterally. The vertebrobasilar system and posterior cerebral arteries are widely patent. The vertebral arteries are codominant. There is no aneurysm, high-grade stenosis, or focal vessel cut off seen throughout the intracranial circulation. Jugular veins: Patent bilaterally. Dural sinuses: Patent. Lung apices: Partially visualized upper lobe lung parenchyma appears clear. Soft tissues: The visualized pharyngeal soft tissues are normal in appearance noting angiographic phase technique. The oropharyngeal airway appears widely patent. The salivary and thyroid glands are normal in appearance. No cervical lymphadenopathy is seen. Skeletal structures: The skeletal structures are osteopenic. The calvarium appears intact. The cervical spine is within normal limits. No lytic or blastic lesion is seen. Orbits: The bony orbits are intact. Orbital contents are normal as visualized. Sinuses and mastoids: The paranasal sinuses are clear. There is a left mastoid effusion with evidence of previous left mastoid surgery and a cochlear implant. The right mastoid air cells are well pneumatized. IMPRESSION: 1. There is no evidence of hemorrhage, mass effect, or acute territorial ischemia by CT criteria noting streak artifact from a cochlear implant. 2. Unremarkable CT angiogram of the brain. 3. Unremarkable CT angiogram of the neck. ACT 112: Negative or not required by law. Electronically signed by: Wilbert Lee M.D. 08/10/2021 6:17 PM Neck CTA 08/10/21 17:[address] OF THE BRAIN; CT ANGIOGRAM OF THE BRAIN; CT ANGIOGRAM OF THE NECK CLINICAL HISTORY: Strokelike symptoms. COMPARISON STUDY: CT of the brain dated 05/15/2020. CT angiogram of the head and neck dated 05/14/2020. TECHNIQUE: Unenhanced axial CT scan of the brain is performed. Subsequently, following the IV administration of 119 of Optiray 320, CT angiogram of the head and neck was performed from the aortic arch to the vertex. Images are reviewed in the axial, sagittal, and coronal planes. 3-D MIPS images are created and assessed. IV contrast was administered without complication. All measurements were calculated based on NASCET criteria. A dose lowering technique was utilized adhering to the principles of ALARA. There is streak artifact from a cochlear implant. CT DOSE: 1033.19 mGy.cm FINDINGS: Brain parenchyma: There is age-related involutional change noting [id number]-ep-envsttov subcortical and periventricular microangiopathic disease. Mineralization is noted in the basal ganglia. There is no hemorrhage, mass effect, or evidence of acute territorial ischemia by CT criteria. There is no evidence of enhancing mass lesion on the angiogram phase images. The ventricles, sulci, and cisterns are prominent secondary to involutional change. Alcantara-white matter differentiation is preserved. No extra-axial fluid collection is seen. Thoracic aorta: Visualized portions of the thoracic aorta are normal in caliber. The aortic arch demonstrates bovine variant anatomy. Right carotid arterial system: The right common carotid artery is widely patent, as are the right internal and external carotid arteries. Mild calcified plaque is seen in the carotid bulb. Left carotid arterial system: The left common carotid artery is widely patent, as are the left internal and external carotid arteries. Vertebral arteries: The vertebral arteries are widely patent bilaterally and codominant. Subclavian arteries: Widely patent bilaterally. Intracranial vasculature: There is atherosclerotic calcification of the cavernous carotid and vertebral arteries. There is a small left posterior communicating artery. The internal carotid arteries are patent at the skull base, as are the anterior and middle cerebral arteries bilaterally. The verte brobasilar system and posterior cerebral arteries are widely patent. The vertebral arteries are codominant. There is no aneurysm, high-grade stenosis, or focal vessel cut off seen throughout the intracranial circulation. Jugular veins: Patent bilaterally. Dural sinuses: Patent. Lung apices: Partially visualized upper lobe lung parenchyma appears clear. Soft tissues: The visualized pharyngeal soft tissues are normal in appearance noting angiographic phase technique. The oropharyngeal airway appears widely patent. The salivary and thyroid glands are normal in appearance. No cervical lymphadenopathy is seen. Skeletal structures: The skeletal structures are osteopenic. The calvarium appears intact. The cervical spine is within normal limits. No lytic or blastic lesion is seen. Orbits: The bony orbits are intact. Orbital contents are normal as visualized. Sinuses and mastoids: The paranasal sinuses are clear. There is a left mastoid effusion with evidence of previous left mastoid surgery and a cochlear implant. The right mastoid air cells are well pneumatized. IMPRESSION: 1. There is no evidence of hemorrhage, mass effect, or acute territorial ischemia by CT criteria noting streak artifact from a cochlear implant. 2. Unremarkable CT angiogram of the brain. 3. Unremarkable CT angiogram of the neck. ACT 112: Negative or not required by law. Electronically signed by: Wilbert Lee M.D. 08/10/2021 6:17 PM Discharge Plan Visit Data Chief Complaint: Stroke Alert Stated Complaint: ?CVA ED Provider: Grzegorz Olivas Discharge Problem: TIA (transient ischemic attack) Patient Disposition: Being Evaluated by Hospitalist Condition: Good Forms Stand Alone Forms: [facility] Prescriptions Prescriptions: No Action insulin aspart U-100 [Novolog Flexpen U-100 Insulin] 100 unit/mL (3 mL) insulin pen 2 - 4 unit SUBCUT AC RF: 0 Lantus Solostar U-100 Insulin 100 unit/mL (3 mL) Insulin Pen 0 unit SUBCUT PM RF: 0 Lipotriad Vision Support 12,500 unit- 12.5 mg Capsule 1 cap PO QAM RF: 0 metoprolol tartrate 25 mg Tablet 25 mg PO BID Qty: 60 RF: 2 nitroglycerin [Nitrostat] 0.4 mg Tablet, Sublingual 0.4 mg sublingual UD PRN (Reason: chest pain) Qty: 30 RF: 1 aspirin 81 mg Tablet,Delayed Release (Dr/Ec) 81 mg PO QAM Qty: 90 RF: 1 famotidine 40 mg tablet 40 mg PO DAILY RF: 0 amlodipine 2.5 mg tablet 2.5 mg PO DAILY RF: 0 fexofenadine [Evelyn] 180 mg Tablet 180 mg PO DAILY PRN (Reason: SEASONAL ALLERGIES) RF: 0 lorazepam 0.5 mg tablet 0.5 mg PO Q6H PRN (Reason: Anxiety) RF: 0 hydrocortisone-acetic acid 1-2 % Drops 3 drp OTIC (EAR) BID PRN (Reason: ITCHY EARS) RF: 0 Repatha SureClick 140 mg/mL pen injector 140 mg SUBCUT .[id number] RF: 0 Referrals Referrals: Amairani Boyd MD [Primary Care Provider] -
[2021-08-10] MEDS ORDERED: OPTIRAY 320 125ml IV ONE (17:50)
[2021-08-10 18:17] LABS: Basophils # (auto) 0.06 K/uL (0-0.2); Basophils % (auto) 0.6 %; Eosinophils # (auto) 0.17 K/uL (0-0.5); Eosinophils % (auto) 1.7 %; Hematocrit (blood only) 37.9 % (37-47); Hemoglobin 12.8 g/dL (12.0-16.0); Immature Granulocytes # (auto) 0.01 K/uL (0.00-0.02); Immature Granulocytes % (auto) 0.1 %; Lymphocytes # (auto) 3.43 K/uL (1.2-3.4); Lymphocytes % (auto) 34.8 %; Mean Corpuscular Hemoglobin 29.2 pg (25-34); Mean Corpuscular Hgb Conc 33.8 g/dL (32-36); Mean Corpuscular Volume 86.3 fL (80-100); Mean Platelet Volume 11.4 fL (7.4-10.4); Monocytes # (auto) 0.66 K/uL (0.11-0.59); Monocytes % (auto) 6.7 %; Neutrophils # (auto) 5.52 K/uL (1.4-6.5); Neutrophils % (auto) 56.1 %; Partial Thromboplastin Ratio 1.1; Partial Thromboplastin Time 27.8 Seconds (21.0-31.0); Platelet Count 263 K/uL (130-400); Prothrombin Time 10.1 Seconds (9.0-12.0); RDW Standard Deviation 40.9 fL (36.4-46.3); Red Blood Count 4.39 M/uL (4.2-5.4); White Blood Count 9.85 K/uL (4.8-10.8)
--- NOTE | 2021-08-10 18:19 | CT Scan Report ---
UNENHANCED CT OF THE BRAIN; CT ANGIOGRAM OF THE BRAIN; CT ANGIOGRAM OF THE NECK CLINICAL HISTORY: Strokelike symptoms. COMPARISON STUDY: CT of the brain dated 05/15/2020. CT angiogram of the head and neck dated 05/14/2020 . TECHNIQUE: Unenhanced axial CT scan of the brain is performed. Subsequently, following the IV adminis tration of 119 of [address] 320, CT angiogram of the head and neck was performed from the aortic arch t o the vertex. Images are reviewed in the axial, sagittal, and coronal planes. 3-D MIPS images are cre ated and assessed. IV contrast was administered without complication. All measurements were calculate d based on NASCET criteria. A dose lowering technique was utilized adhering to the principles of ALA RA. There is streak artifact from a cochlear implant. CT DOSE: 1033.19 mGy.cm FINDINGS: Brain parenchyma: There is age-related involutional change noting [id number] subcortical and pe riventricular microangiopathic disease. Mineralization is noted in the basal ganglia. There is no hem orrhage, mass effect, or evidence of acute territorial ischemia by CT criteria. There is no evidence of enhancing mass lesion on the angiogram phase images. The ventricles, sulci, and cisterns are promi nent secondary to involutional change. Alcantara-white matter differentiation is preserved. No extra-axial fluid collection is seen. Thoracic aorta: Visualized portions of the thoracic aorta are normal in caliber. The aortic arch demo nstrates bovine variant anatomy. Right carotid arterial system: The right common carotid artery is widely patent, as are the right int ernal and external carotid arteries. Mild calcified plaque is seen in the carotid bulb. Left carotid arterial system: The left common carotid artery is widely patent, as are the left international logistics coordinator al and external carotid arteries. Vertebral arteries: The vertebral arteries are widely patent bilaterally and codominant. Subclavian arteries: Widely patent bilaterally. Intracranial vasculature: There is atherosclerotic calcification of the cavernous carotid and vertebr al arteries. There is a small left posterior communicating artery. The internal carotid arteries are patent at the skull base, as are the anterior and middle cerebral arteries bilaterally. The vertebrob asilar system and posterior cerebral arteries are widely patent. The vertebral arteries are codominan t. There is no aneurysm, high-grade stenosis, or focal vessel cut off seen throughout the intracrania l circulation. Jugular veins: Patent bilaterally. Dural sinuses: Patent. Lung apices: Partially visualized upper lobe lung parenchyma appears clear. Soft tissues: The visualized pharyngeal soft tissues are normal in appearance noting angiographic pha se technique. The oropharyngeal airway appears widely patent. The salivary and thyroid glands are nor mal in appearance. No cervical lymphadenopathy is seen. Skeletal structures: The skeletal structures are osteopenic. The calvarium appears intact. The cervic al spine is within normal limits. No lytic or blastic lesion is seen. Orbits: The bony orbits are intact. Orbital contents are normal as visualized. Sinuses and mastoids: The paranasal sinuses are clear. There is a left mastoid effusion with evidence of previous left mastoid surgery and a cochlear implant. The right mastoid air cells are well pneuma tized. IMPRESSION: 1. There is no evidence of hemorrhage, mass effect, or acute territorial ischemia by CT criteria noti ng streak artifact from a cochlear implant. 2. Unremarkable CT angiogram of the brain. 3. Unremarkable CT angiogram of the neck. ACT 112: Negative or not required by law. Electronically signed by: Wilbert Lee M.D. 08/10/2021 6:17 PM
[2021-08-10 18:25] LABS: Alanine Aminotransferase 14 U/L (12-78); Albumin Level 3.7 gm/dl (3.4-5.0); Aspartate Aminotransferase 13 U/L (15-37); BUN Creatinine Ratio 19.6 (10-20); Blood Urea Nitrogen 16 mg/dl (7-18); Calcium 8.9 mg/dl (8.5-10.1); Carbon Dioxide 25 mmol/L (21-32); Chloride 104 mmol/L (98-107); Est GFR (African American) 87.6 ml/min; Est GFR (Non-African American) 75.6 ml/min; Glucose 191 mg/dl (70-99); Magnesium 2.1 mg/dl (1.8-2.4); Potassium 4.1 mmol/L (3.5-5.1); Sodium 137 mmol/L (136-145)
[2021-08-10 18:30] LABS: Alkaline Phosphatase 92 U/L (45-117); Bilirubin,Total 0.2 mg/dl (0.2-1); Globulin 3.8 gm/dl (2.5-4.0); Total Protein 7.5 gm/dl (6.4-8.2); Troponin I < 0.015 ng/ml (0-0.045)
[2021-08-10] MEDS ORDERED: CLOPIDOGREL BISULFATE 300 MG TAB PO STA (19:00)
--- NOTE | 2021-08-10 19:18 | XRay Report ---
SINGLE VIEW CHEST CLINICAL HISTORY: Strokelike symptoms. FINDINGS: An AP, portable, upright chest radiograph is compared to study dated 05/14/2020. The cardiom ediastinal silhouette is unremarkable. The lungs and pleural spaces are clear. No pneumothorax is see n. The skeletal structures are osteopenic. The bony thorax is grossly intact. IMPRESSION: No active disease in the chest. ACT 112: Negative or not required by law. Electronically signed by: Wilbert Lee M.D. 08/10/2021 7:16 PM
[2021-08-10] MEDS ORDERED: PHARMACIST DISCHARGE MED REC CONSULT PRN (22:12)
[2021-08-10] MEDS ORDERED: POLYETHYLENE (MIRALAX) 17 GM PACK PO PRN (22:12)
[2021-08-10] MEDS ORDERED: ONDANSETRON INJ 2 MG/ML 2 ML VIAL IV PRN (22:12)
[2021-08-10] MEDS ORDERED: ACETAMINOPHEN 325 MG TAB PO PRN (22:12)
[2021-08-10] MEDS ORDERED: ACETIC AC/HYDROCORTISONE OTIC 10ML BTL OT PRN (22:12)
[2021-08-10] MEDS ORDERED: LORazepam 0.5 MG TAB PO PRN (22:12)
[2021-08-10] MEDS ORDERED: FEXOFENADINE HCL 180 MG TAB PO PRN (22:12)
[2021-08-10] MEDS ORDERED: NITROGLYCERIN SL 0.4 MG/TAB TAB SL PRN ×2 (22:12)
--- NOTE | 2021-08-10 22:38 | History and Physical Report ---
DATE OF ADMISSION: 08/10/2021. CHIEF COMPLAINT: Stroke alert. HISTORY OF PRESENT ILLNESS: A 65-year-old female with past medical history significant for type 1 diabetes, diabetic polyneuropathy, hyperlipidemia, FLETCHER (myopathy, encephalopathy, lactic acidosis, and stroke), history of chronic rhinitis, snoring, CAD, hypertension, history of Schatzki ring, she has dilated her esophagus about a week ago as per patient, history of degenerative cervical disk, history of variance of migraine, Meniere disease, sensorineural hearing loss, bilateral, has a cochlear implant on the left ear, macular degeneration, history of tobacco abuse, statin is contraindicated, status post coronary artery stent placement, history of colon polyps, history of slurred speech. Presents because of stroke-like symptoms. The patient lives with her son, ambulates without any support. Generally, can swallow okay. The patient was driving the car when she felt like she was going to pass out. She stopped the car and checked the blood sugars, these were okay. Then she drove again for some more time, again she felt the same feeling like passing out. She stopped the car and called the daughter and daughter came in and EMS was called. Initially, she also was having some trouble speaking, she was able to speak, but not making good sentences. She has trouble making words, could not find words, and also brain was foggy. She took aspirin en route and by the time she came in here, she was fine. Stroke alert was called. CT of the head and CTA of the head and neck were unremarkable. [facility] recommended to load with Plavix. We could not get MRI scan because of cochlear implants. Currently, resting comfortably and hemodynamically stable, able to give her history. Speech is clear currently. Somewhat hard of hearing because of sensorineural hearing loss and she has a cochlear implant on one side. Denies any headache. Currently no dizziness, no blurred visions, no earache, no runny nose, no sore throat, no cough, no fevers, no dysphagia, no chest pain, no shortness of breath, no nausea, no abdominal pain. Normal bowel and bladder movements. ALLERGIES: ATORVASTATIN, PREDNISONE. PAST MEDICAL HISTORY: As mentioned above. PAST SURGICAL HISTORY: Left heart catheterization with stent placement, colonoscopies, EGDs, cochlear implant, laparoscopic cholecystectomy, muscle biopsy of the right thigh. MEDICATIONS: The patient is on amlodipine 2.5 mg p.o. daily, aspirin 81 mg p.o. daily, Repatha subcutaneous every 2 weeks, famotidine 40 mg p.o. daily, Evelyn 180 mg p.o. daily p.r.n., insulin FlexPen sliding scale, Lantus SoloSTAR 100 units subcutaneous p.m., lorazepam 0.5 mg p.o. q. 6 hours p.r.n., metoprolol tartrate 25 mg p.o. b.i.d., nitroglycerin 0.4 mg sublingual p.r.n. FAMILY HISTORY: Significant for paternal grandmother had cancer; brother has diabetes; father has diabetes, CAD; mother has CAD; daughter has KRISTA syndrome; son has retinal detachment. SOCIAL HISTORY: Lives with her son. Quit smoking in 1991, smoked on and off since age 21. No alcohol use. No drug use. REVIEW OF SYSTEMS: As per HPI. Rest of the review of systems is negative. PHYSICAL EXAMINATION: GENERAL: The patient is of moderate build, not in acute distress. VITAL SIGNS: Temperature 36.9, pulse 62, respiratory rate 26, blood pressure 128/70, oxygen 97% on room air. HEENT: Pupils equal, round and reactive to light. Oral mucosa moist. NECK: No JVD, no neck masses. CARDIOVASCULAR: S1 and S2 heard. Regular rate and rhythm. No murmur, no gallop. RESPIRATORY SYSTEM: Normal AP diameter. No accessory muscle use. No wheezing, no crackles. ABDOMEN: Soft, bowel sounds present, nontender, no distention. CENTRAL NERVOUS SYSTEM: Alert and oriented. Speech is clear. No facial droop. No pronator drift. Power 5/5 in all extremities. Sensation is intact. Position sense intact. EXTREMITIES: No edema, no erythema. LABORATORY DATA: WBC 9.8, hemoglobin 12.8, hematocrit 37.9, platelets 263. PT 10.1, INR 1, APTT 27.8. Sodium 137, potassium 4.1, chloride 104, bicarbonate 25, BUN 16, creatinine 0.8, serum glucose 191, calcium 8.9, magnesium 2.1, total bilirubin 0.2, AST 13, ALT 14, alkaline phosphatase 92. Troponin I less than 0.015. SARS-CoV-2 PCR negative. IMAGING DATA: Chest x-ray, no active disease in the chest. CT of the head, no acute disease, no active findings seen. CTA of the head and neck unremarkable. EKG: Normal sinus rhythm, rate of 91, no acute ST changes seen. ASSESSMENT AND PLAN: This is a 65-year-old female who presents with stroke-like symptoms. 1. Stroke-like symptoms: Possible transient ischemic attack. Has some speech difficulty and also some fogginess in the head that got resolved. Initial workup is negative. Could not do MRI because of the cochlear implants. The patient was loaded with Plavix. The patient had a stroke alert. We will monitor in the [employer] tele. We will do full stroke workup with echocardiogram, speech evaluation, neuro evaluation in the a.m., and PT/OT. Continue her home aspirin.Added Plavix.The patient has statin intolerance. We will monitor vital signs and tele monitoring. 2. The patient has a history of FLETCHER syndrome: Follow up as outpatient. 3. Coronary artery disease: Status post stent. Continue aspirin, beta rebecca. 4. History of hypertension: Continue her amlodipine, metoprolol. Will monitor the blood pressure. 5. History of diabetes, type I: Cut back on her long acting insulin dose and insulin sliding scale. Follow HbA1c level, follow the blood sugars. 6. Anxiety: Ativan p.r.n. 7. Deep venous thrombosis prophylaxis: Sequential compression devices for now. DISPOSITION: Closely monitor in the [employer] tele. PT/OT prior to discharge. Social service to help with discharge planning. Level 1 full code. Job ID: [id number] MTDD
[2021-08-10] MEDS ORDERED: GLUCOSE 40% GEL 15 GM TUBE PO PRN (22:45)
[2021-08-10] MEDS ORDERED: CARBOHYDRATES FOR HYPOGLYCEMIA PO PRN (22:45)
[2021-08-10] MEDS ORDERED: DEXTROSE 50% 50 ML SYRINGE IV PRN (22:45)
[2021-08-10] MEDS ORDERED: GLUCOSE 10 TABS/TUBE PO PRN (22:45)
[2021-08-10] MEDS ORDERED: GLUCAGON FOR INJ 1 MG VIAL IM PRN (22:45)
[2021-08-10] MEDS: METOPROLOL TARTRATE 25 MG TAB PO SCH (23:18)
[2021-08-10] MEDS: INSULIN ASPART 100 UNITS/ML 3 ML PEN SC SCH (23:46)
[2021-08-11 07:48] LABS: Basophils # (auto) 0.04 K/uL (0-0.2); Basophils % (auto) 0.6 %; Eosinophils # (auto) 0.17 K/uL (0-0.5); Eosinophils % (auto) 2.6 %; Hematocrit (blood only) 36.6 % (37-47); Hemoglobin 12.1 g/dL (12.0-16.0); Immature Granulocytes # (auto) 0.01 K/uL (0.00-0.02); Immature Granulocytes % (auto) 0.2 %; Lymphocytes # (auto) 2.19 K/uL (1.2-3.4); Lymphocytes % (auto) 33.2 %; Mean Corpuscular Hemoglobin 28.9 pg (25-34); Mean Corpuscular Hgb Conc 33.1 g/dL (32-36); Mean Corpuscular Volume 87.4 fL (80-100); Monocytes # (auto) 0.76 K/uL (0.11-0.59); Monocytes % (auto) 11.5 %; Neutrophils # (auto) 3.43 K/uL (1.4-6.5); Neutrophils % (auto) 51.9 %; Platelet Count 230 K/uL (130-400); RDW Standard Deviation 41.7 fL (36.4-46.3); Red Blood Count 4.19 M/uL (4.2-5.4)
[2021-08-11 08:14] LABS: Estimated Average Glucose 206 mg/dl; Hemoglobin A1C 8.8 % (4.5-5.6)
[2021-08-11 08:29] LABS: BUN Creatinine Ratio 17.8 (10-20); Calcium 8.6 mg/dl (8.5-10.1); Creatinine Clr Calc Pharmacy 62.4 ml/min; Est GFR (African American) 102.6 ml/min; Est GFR (Non-African American) 88.5 ml/min
[2021-08-11] MEDS ORDERED: amLODIPine BESYLATE 5 MG TAB PO SCH (09:00)
[2021-08-11] MEDS ORDERED: CLOPIDOGREL BISULFATE 75 MG TAB PO SCH (09:00)
[2021-08-11] MEDS ORDERED: FAMOTIDINE 40 MG TABLET PO SCH (09:00)
[2021-08-11] MEDS ORDERED: CEROVITE ADV FORMULA TAB PO SCH (09:00)
[2021-08-11] MEDS ORDERED: ASPIRIN 81 MG ECTAB PO SCH (09:00)
[2021-08-11] MEDS ORDERED: INSULIN GLARGINE SOLOSTAR 100 UNITS/ML 3 ML PEN SC SCH ×2 (09:00→10:45)
[2021-08-11] MEDS: INSULIN ASPART 100 UNITS/ML 3 ML PEN SC SCH ×3 (09:37→17:28)
[2021-08-11] MEDS: METOPROLOL TARTRATE 25 MG TAB PO SCH (09:42)
--- NOTE | 2021-08-11 09:53 | Electrocardiogram Report ---
Test Reason : Blood Pressure : / mmHG Vent. Rate : 091 BPM Atrial Rate : 091 BPM P-R Int : 120 ms QRS Dur : 084 ms QT Int : 360 ms P-R-T Axes : 071 -47 162 degrees QTc Int : 442 ms Normal sinus rhythm Left atrial enlargement Left axis deviation Septal infarct (cited on or before 14-MAY-2020) Abnormal ECG When compared with ECG of 16-MAY-2020 06:51, T wave inversion no longer evident in Anterior leads QT has shortened Confirmed by Grzegorz Saucedo ([id number]) on 08/11/2021 9:53:09 AM Referred By: Amairani Ramirez Confirmed By:Grzegorz Saucedo
--- NOTE | 2021-08-11 10:39 | Hospitalist Progress Note ---
Date of Service August 11, 2021 Assessment & Plan (1) MELAS (mitochondrial encephalopathy, lactic acidosis and stroke-like episodes): Plan: TIA This is a 65-year-old female who presents with stroke-like symptoms. 1. Stroke-like symptoms: Possible transient ischemic attack. Has some speech difficulty and also some "fogginess in the head" that got resolved. Initial workup is negative. Could not do MRI because of the cochlear implants. The patient was loaded with Plavix. The patient had a stroke alert. Monitored in the med tele - remains in sinus rhythm. Echocardiogram - normal LV chamber size and wall thickness. Normal LV systolic function, EF 55 to 60%. No segmental LV wall motion abnormalities noted. Grade 2 diastolic dysfunction. The interatrial septum is intact with no evidence for an ASD. Injection of contrast documented no interatrial shunt. Aortic valve sclerosis mild, without significant aortic valvular stenosis. Mild aortic regurg. Mild mitral regurg. Mild tricuspid regurg. EEG - Normal EEG during wakefulness Neurology consulted - Continue her home aspirin.Added Plavix. Will DC on aspirin and Plavix for 21 days, then take Plavix daily alone She will need to follow-up with neurology in about a month. It is also recommended that she resumes taking coenzyme Q 10, 1000 mg daily. 2. History of MELOS syndrome: Follow up as outpatient w/ neurology. Recommendations as above, resume coenzyme Q 10 3. Coronary artery disease: Status post stent. Continue aspirin, beta rebecca. 4. History of hypertension: Continue her amlodipine, metoprolol. Will monitor the blood pressure. 5. History of diabetes, type I: Hemoglobin A1c 8.8% Cont. long acting insulin dose and insulin sliding scale. follow the blood sugars. Continue follow-up with PCP as outpatient 6. Anxiety: Ativan p.r.n. DVT prophylaxis: Sequential compression devices for now. DISPOSITION: Plan to discharge home. Code: full code. Admission and Anticipated Discharge Date Admission Date: August 10, 2021 Subjective Patient seen in follow-up for possible TIA / strokelike symptoms Currently she is sitting up in bed, in no acute distress, feeling well , denies any fevers, chills, chest pain, shortness of breath, dizziness, lightheadedness Seen by neurology earlier today, discussed all medication changes and follow-ups Review of Systems Review of Systems: All systems reviewed & are unremarkable except as noted in Subjective Physical Exam Physical Exam: GENERAL: The patient is of moderate build, not in acute distress. HEENT: NC/AT, Pupils equal, round and reactive to light. Oral mucosa moist. NECK: No JVD, no neck masses. CARDIOVASCULAR: S1 and S2 heard. Regular rate and rhythm. No murmur, no gallop. RESPIRATORY: Normal AP diameter. No accessory muscle use. No wheezing, no crackles. ABDOMEN: Soft, bowel sounds present, nontender, no distention. NEURO: Alert and oriented. Speech is clear. No facial droop. No pronator drift. Power 5/5 in all extremities. Sensation is intact. Position sense intact. EXTREMITIES: No edema, no erythema. Results & Data Results & Data ([facility]) Vital Signs (Past 12 Hours) Vital Signs Temp Pulse Pulse Resp BP Pulse Ox 08/11/21 08:03 36.4 C L 61 18 113/65 96 08/11/21 07:45 60 08/11/21 05:00 69 08/11/21 02:53 36.5 C 75 18 109/65 95 Laboratory Results 08/11/21 08/11/21 08/11/21 Range/Units 08:32 07:34 07:20 WBC (4.8-10.8) K/uL RBC (4.2-5.4) M/uL Hgb (12.0-16.0) g/dL Hct (37-47) % MCV (80-100) fL MCH (25-34) pg MCHC (32-36) g/dL RDW Std Deviation (36.4-46.3) fL RDW Coeff of Marj (11.5-14.5) % Plt Count (130-400) K/uL MPV (7.4-10.4) fL Immature Gran % (Auto) % Neut % (Auto) % Lymph % (Auto) % Williamson % (Auto) % Eos % (Auto) % Baso % (Auto) % Neut # (Auto) (1.4-6.5) K/uL Lymph # (Auto) (1.2-3.4) K/uL Williamson # (Auto) (0.11-0.59) K/uL Eos # (Auto) (0-0.5) K/uL Baso # (Auto) (0-0.2) K/uL Immature Gran # (Auto) (0.00-0.02) K/uL PT (9.0-12.0) Seconds INR (0.9-1.1) APTT (21.0-31.0) Seconds PTT Ratio Sodium (136-145) mmol/L Potassium 4.3 (3.5-5.1) mmol/L Chloride (98-107) mmol/L Carbon Dioxide (21-32) mmol/L Anion Gap (3-11) BUN (7-18) mg/dl Creatinine (0.6-1.2) mg/dl Est Cr Clr Drug Dosing Est GFR ( Amer) ml/min Est GFR (Non-Af Amer) ml/min BUN/Creatinine Ratio (10-20) Glucose (70-99) mg/dl POC Glucose 250 H (70-99) mg/dl Estimat Average Glucose 206 mg/dl Hemoglobin A1c 8.8 H (4.5-5.6) % Calcium (8.5-10.1) mg/dl Magnesium (1.8-2.4) mg/dl Total Bilirubin (0.2-1) mg/dl AST (15-37) U/L ALT (12-78) U/L Alkaline Phosphatase (45-117) U/L Troponin I (0-0.045) ng/ml Total Protein (6.4-8.2) gm/dl Albumin (3.4-5.0) gm/dl Globulin (2.5-4.0) gm/dl Albumin/Globulin Ratio (0.9-2) Triglycerides (0-150) mg/dl Cholesterol (0-200) mg/dl LDL Cholesterol, Calc mg/dl VLDL Cholesterol, Calc mg/dl HDL Cholesterol mg/dl Cholesterol/HDL Ratio COVID-19 Eval Order SARS-CoV-2 (PCR) (Negative) 08/11/21 08/11/21 08/10/21 Range/Units 07:20 07:20 22:19 WBC 6.60 (4.8-10.8) K/uL RBC 4.19 L (4.2-5.4) M/uL Hgb 12.1 (12.0-16.0) g/dL Hct 36.6 L (37-47) % MCV 87.4 (80-100) fL MCH 28.9 (25-34) pg MCHC 33.1 (32-36) g/dL RDW Std Deviation 41.7 (36.4-46.3) fL RDW Coeff of Marj 13.0 (11.5-14.5) % Plt Count 230 (130-400) K/uL MPV 11.0 H (7.4-10.4) fL Immature Gran % (Auto) 0.2 % Neut % (Auto) 51.9 % Lymph % (Auto) 33.2 % Williamson % (Auto) 11.5 % Eos % (Auto) 2.6 % Baso % (Auto) 0.6 % Neut # (Auto) 3.43 (1.4-6.5) K/uL Lymph # (Auto) 2.19 (1.2-3.4) K/uL Williamson # (Auto) 0.76 H (0.11-0.59) K/uL Eos # (Auto) 0.17 (0-0.5) K/uL Baso # (Auto) 0.04 (0-0.2) K/uL Immature Gran # (Auto) 0.01 (0.00-0.02) K/uL PT (9.0-12.0) Seconds INR (0.9-1.1) APTT (21.0-31.0) Seconds PTT Ratio Sodium 138 (136-145) mmol/L Potassium (3.5-5.1) mmol/L Chloride 106 (98-107) mmol/L Carbon Dioxide 26 (21-32) mmol/L Anion Gap 6.0 (3-11) BUN 13 (7-18) mg/dl Creatinine 0.72 (0.6-1.2) mg/dl Est Cr Clr Drug Dosing 62.4 Est GFR ( Amer) 102.6 ml/min Est GFR (Non-Af Amer) 88.5 ml/min BUN/Creatinine Ratio 17.8 (10-20) Glucose 239 H (70-99) mg/dl POC Glucose 113 H (70-99) mg/dl Estimat Average Glucose mg/dl Hemoglobin A1c (4.5-5.6) % Calcium 8.6 (8.5-10.1) mg/dl Magnesium (1.8-2.4) mg/dl Total Bilirubin (0.2-1) mg/dl AST (15-37) U/L ALT (12-78) U/L Alkaline Phosphatase (45-117) U/L Troponin I (0-0.045) ng/ml Total Protein (6.4-8.2) gm/dl Albumin (3.4-5.0) gm/dl Globulin (2.5-4.0) gm/dl Albumin/Globulin Ratio (0.9-2) Triglycerides 269 H (0-150) mg/dl Cholesterol 239 H (0-200) mg/dl LDL Cholesterol, Calc 143 mg/dl VLDL Cholesterol, Calc 54 mg/dl HDL Cholesterol 42 mg/dl Cholesterol/HDL Ratio 6 COVID-19 Eval Order SARS-CoV-2 (PCR) (Negative) 08/10/21 08/10/21 08/10/21 Range/Units 18:44 18:44 17:50 WBC (4.8-10.8) K/uL RBC (4.2-5.4) M/uL Hgb (12.0-16.0) g/dL Hct (37-47) % MCV (80-100) fL MCH (25-34) pg MCHC (32-36) g/dL RDW Std Deviation (36.4-46.3) fL RDW Coeff of Marj (11.5-14.5) % Plt Count (130-400) K/uL MPV (7.4-10.4) fL Immature Gran % (Auto) % Neut % (Auto) % Lymph % (Auto) % Williamson % (Auto) % Eos % (Auto) % Baso % (Auto) % Neut # (Auto) (1.4-6.5) K/uL Lymph # (Auto) (1.2-3.4) K/uL Williamson # (Auto) (0.11-0.59) K/uL Eos # (Auto) (0-0.5) K/uL Baso # (Auto) (0-0.2) K/uL Immature Gran # (Auto) (0.00-0.02) K/uL PT (9.0-12.0) Seconds INR (0.9-1.1) APTT (21.0-31.0) Seconds PTT Ratio Sodium 137 (136-145) mmol/L Potassium 4.1 (3.5-5.1) mmol/L Chloride 104 (98-107) mmol/L Carbon Dioxide 25 (21-32) mmol/L Anion Gap 9.0 (3-11) BUN 16 (7-18) mg/dl Creatinine 0.82 (0.6-1.2) mg/dl Est Cr Clr Drug Dosing Not Reportable Est GFR ( Amer) 87.6 ml/min Est GFR (Non-Af Amer) 75.6 ml/min BUN/Creatinine Ratio 19.6 (10-20) Glucose 191 H (70-99) mg/dl POC Glucose (70-99) mg/dl Estimat Average Glucose mg/dl Hemoglobin A1c (4.5-5.6) % Calcium 8.9 (8.5-10.1) mg/dl Magnesium 2.1 (1.8-2.4) mg/dl Total Bilirubin 0.2 (0.2-1) mg/dl AST 13 L (15-37) U/L ALT 14 (12-78) U/L Alkaline Phosphatase 92 (45-117) U/L Troponin I < 0.015 (0-0.045) ng/ml Total Protein 7.5 (6.4-8.2) gm/dl Albumin 3.7 (3.4-5.0) gm/dl Globulin 3.8 (2.5-4.0) gm/dl Albumin/Globulin Ratio 1.0 (0.9-2) Triglycerides (0-150) mg/dl Cholesterol (0-200) mg/dl LDL Cholesterol, Calc mg/dl VLDL Cholesterol, Calc mg/dl HDL Cholesterol mg/dl Cholesterol/HDL Ratio COVID-19 Eval Order Covid19 at [facility] SARS-CoV-2 (PCR) NEGATIVE (Negative) 08/10/21 08/10/21 Range/Units 17:50 17:50 WBC 9.85 (4.8-10.8) K/uL RBC 4.39 (4.2-5.4) M/uL Hgb 12.8 (12.0-16.0) g/dL Hct 37.9 (37-47) % MCV 86.3 (80-100) fL MCH 29.2 (25-34) pg MCHC 33.8 (32-36) g/dL RDW Std Deviation 40.9 (36.4-46.3) fL RDW Coeff of Marj 13.0 (11.5-14.5) % Plt Count 263 (130-400) K/uL MPV 11.4 H (7.4-10.4) fL Immature Gran % (Auto) 0.1 % Neut % (Auto) 56.1 % Lymph % (Auto) 34.8 % Williamson % (Auto) 6.7 % Eos % (Auto) 1.7 % Baso % (Auto) 0.6 % Neut # (Auto) 5.52 (1.4-6.5) K/uL Lymph # (Auto) 3.43 H (1.2-3.4) K/uL Williamson # (Auto) 0.66 H (0.11-0.59) K/uL Eos # (Auto) 0.17 (0-0.5) K/uL Baso # (Auto) 0.06 (0-0.2) K/uL Immature Gran # (Auto) 0.01 (0.00-0.02) K/uL PT 10.1 (9.0-12.0) Seconds INR 1.0 (0.9-1.1) APTT 27.8 (21.0-31.0) Seconds PTT Ratio 1.1 Sodium (136-145) mmol/L Potassium (3.5-5.1) mmol/L Chloride (98-107) mmol/L Carbon Dioxide (21-32) mmol/L Anion Gap (3-11) BUN (7-18) mg/dl Creatinine (0.6-1.2) mg/dl Est Cr Clr Drug Dosing Est GFR ( Amer) ml/min Est GFR (Non-Af Amer) ml/min BUN/Creatinine Ratio (10-20) Glucose (70-99) mg/dl POC Glucose (70-99) mg/dl Estimat Average Glucose mg/dl Hemoglobin A1c (4.5-5.6) % Calcium (8.5-10.1) mg/dl Magnesium (1.8-2.4) mg/dl Total Bilirubin (0.2-1) mg/dl AST (15-37) U/L ALT (12-78) U/L Alkaline Phosphatase (45-117) U/L Troponin I (0-0.045) ng/ml Total Protein (6.4-8.2) gm/dl Albumin (3.4-5.0) gm/dl Globulin (2.5-4.0) gm/dl Albumin/Globulin Ratio (0.9-2) Triglycerides (0-150) mg/dl Cholesterol (0-200) mg/dl LDL Cholesterol, Calc mg/dl VLDL Cholesterol, Calc mg/dl HDL Cholesterol mg/dl Cholesterol/HDL Ratio COVID-19 Eval Order SARS-CoV-2 (PCR) (Negative) Medications Administered Current Inpatient Medications Acetaminophen (Acetaminophen 325 Mg Tab) 650 mg PO Q4H PRN PRN Reason: Pain or Fever Stop: 09/09/21 22:11 Acetic Acid/Hydrocortisone (Acetic Ac/Hydrocortisone Otic 10ml Btl) 3 drops OT BID PRN PRN Reason: ITCHY EARS Stop: 09/09/21 22:11 Amlodipine Besylate (Amlodipine Besylate 5 Mg Tab) 2.5 mg PO DAILY [facility] Stop: 09/10/21 08:59 Last Admin: 08/11/21 09:41 Dose: 2.5 mg Documented by: Aspirin (Aspirin 81 Mg Ectab) 81 mg PO QAM [facility] Stop: 09/10/21 08:59 Last Admin: 08/11/21 09:42 Dose: 81 mg Documented by: Clopidogrel Bisulfate (Clopidogrel Bisulfate 75 Mg Tab) 75 mg PO QAM [facility] Stop: 09/10/21 08:59 Last Admin: 08/11/21 09:42 Dose: 75 mg Documented by: Dextrose (Dextrose 50% 50 Ml Syringe) 25 - 50 ml IV UD PRN; Protocol PRN Reason: Hypoglycemia Protocol Stop: 09/09/21 22:44 Famotidine (Famotidine 40 Mg Tablet) 40 mg PO DAILY [facility] Stop: 09/10/21 08:59 Last Admin: 08/11/21 09:42 Dose: 40 mg Documented by: Fexofenadine HCl (Fexofenadine Hcl 180 Mg Tab) 180 mg PO DAILY PRN PRN Reason: SEASONAL ALLERGIES Stop: 09/09/21 22:11 Glucagon (Glucagon For Inj 1 Mg Vial) 1 mg IM UD PRN; Protocol PRN Reason: Hypoglycemia Protocol Stop: 09/09/21 22:44 Glucose (Glucose 40% Gel 15 Gm Tube) 15 - 30 gm PO UD PRN; Protocol PRN Reason: Hypoglycemia Protocol Stop: 09/09/21 22:44 Glucose (Glucose 10 Tabs/Tube) 4 - 8 tabs PO UD PRN; Protocol PRN Reason: Hypoglycemia Protocol Stop: 09/09/21 22:44 Sodium Chloride (Nss 1000ml) 1,000 mls @ 80 mls/hr IV .[id number] [facility] Stop: 08/11/21 11:14 Last Admin: 08/10/21 23:36 Dose: 80 mls/hr Documented by: Insulin Aspart (Insulin Aspart 100 Units/Ml 3 Ml Pen) 0 units SC ACHS [facility] Stop: 09/09/21 22:59 Last Admin: 08/11/21 09:37 Dose: 7 units Documented by: Insulin Glargine (Insulin Glargine Solostar 100 Units/Ml 3 Ml Pen) 20 units SC DAILY [facility] Stop: 09/10/21 10:44 Lorazepam (Lorazepam 0.5 Mg Tab) 0.5 mg PO Q6H PRN PRN Reason: Anxiety Stop: 09/09/21 22:11 Metoprolol Tartrate (Metoprolol Tartrate 25 Mg Tab) 25 mg PO BID [facility] Stop: 09/09/21 22:59 Last Admin: 08/11/21 09:42 Dose: 25 mg Documented by: Miscellaneous (Carbohydrates For Hypoglycemia ) 15 - 30 gm PO UD PRN PRN Reason: Hypoglycemia Treatment Stop: 09/09/21 22:44 Miscellaneous Information (Pharmacist Discharge Med Rec Consult) 1 ea N/A UD PRN PRN Reason: Consult Stop: 09/09/21 22:11 Multivitamins/Minerals (Cerovite Adv Formula Tab) 1 tab PO QAM [facility] Stop: 09/10/21 08:59 Last Admin: 08/11/21 09:43 Dose: 1 tab Documented by: Nitroglycerin (Nitroglycerin Sl 0.4 Mg/Tab Tab) 0.4 mg SL UD PRN PRN Reason: Chest Pain Stop: 09/09/21 22:11 Nitroglycerin (Nitroglycerin Sl 0.4 Mg/Tab Tab) 0.4 mg SL UD PRN PRN Reason: chest pain Stop: 09/09/21 22:11 Ondansetron HCl (Ondansetron Inj 2 Mg/Ml 2 Ml Vial) 4 mg IV Q6H PRN PRN Reason: Nausea Stop: 09/09/21 22:11 Polyethylene Glycol (Polyethylene (Miralax) 17 Gm Pack) 17 gm PO DAILY PRN PRN Reason: Constipation Stop: 09/09/21 22:11
--- NOTE | 2021-08-11 13:34 | Electroencephalogram ---
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 Home Medication List Medication Instructions Recorded Confirmed Type insulin aspart U-100 100 unit/mL 2 - 4 unit SUBCUT AC 05/14/20 08/10/21 History (3 mL) subcutaneous pen (Novolog Flexpen U-100 Insulin aspart) insulin glargine 100 unit/mL (3 20 - 30 unit SUBCUT PM 05/14/20 08/11/21 History mL) subcutaneous pen (Lantus Solostar U-100 Insulin) vit A 12,500 unit-zinc 12.5 1 cap PO QAM 05/14/20 08/10/21 History [id number]-bilberry-herb #261 capsule (Lipot[employer] Vision Support) aspirin 81 mg tablet,delayed 81 mg PO QAM #90 tab 05/17/20 08/10/21 Rx release metoprolol tartrate 25 mg tablet 25 mg PO BID #60 tab 05/17/20 08/10/21 Rx nitroglycerin 0.4 mg sublingual 0.4 mg SUBLINGUAL UD PRN #30 tab 05/17/20 08/10/21 Rx tablet (Nitrostat) amlodipine 2.5 mg tablet 2.5 mg PO DAILY 08/10/21 08/10/21 History evolocumab 140 mg/mL subcutaneous 140 mg SUBCUT .[id number] 08/10/21 08/10/21 History pen injector (Repatha SureLuis Felipeick) famotidine 40 mg tablet 40 mg PO DAILY 08/10/21 08/10/21 History fexofenadine 180 mg tablet 180 mg PO DAILY PRN 08/10/21 08/10/21 History hydrocortisone-acetic acid 1 %-2 % 3 drp OTIC (EAR) BID PRN 08/10/21 08/10/21 History ear drops lorazepam 0.5 mg tablet 0.5 mg PO Q6H PRN 08/10/21 08/10/21 History Inpatient Medication List Amlodipine Besylate (Amlodipine Besylate 5 Mg Tab) 2.5 mg PO DAILY [facility] Stop: 09/10/21 08:59 Last Admin: 08/11/21 09:41 Dose: 2.5 mg Documented by: [id number] Aspirin (Aspirin 81 Mg Ectab) 81 mg PO QAM [facility] Stop: 09/10/21 08:59 Last Admin: 08/11/21 09:42 Dose: 81 mg Documented by: [id number] Clopidogrel Bisulfate (Clopidogrel Bisulfate 75 Mg Tab) 75 mg PO QAM [facility] Stop: 09/10/21 08:59 Last Admin: 08/11/21 09:42 Dose: 75 mg Documented by: [id number] Famotidine (Famotidine 40 Mg Tablet) 40 mg PO DAILY [facility] Stop: 09/10/21 08:59 Last Admin: 08/11/21 09:42 Dose: 40 mg Documented by: [id number] Insulin Aspart (Insulin Aspart 100 Units/Ml 3 Ml Pen) 0 units SC ACHS [facility] Stop: 09/09/21 22:59 Last Admin: 08/11/21 12:50 Dose: 2 units Documented by: [id number] Cosigned by: [id number] Admin: 08/11/21 09:37 Dose: 7 units Documented by: [id number] Cosigned by: [id number] Admin: 08/10/21 23:46 Dose: Not Given Documented by: [id number] Cosigned by: [id number] Insulin Glargine (Insulin Glargine Solostar 100 Units/Ml 3 Ml Pen) 20 units SC DAILY [facility] Stop: 09/10/21 10:44 Last Admin: 08/11/21 11:05 Dose: 20 units Documented by: [id number] Cosigned by: [id number] Metoprolol Tartrate (Metoprolol Tartrate 25 Mg Tab) 25 mg PO BID [facility] Stop: 09/09/21 22:59 Last Admin: 08/11/21 09:42 Dose: 25 mg Documented by: [id number] Admin: 08/10/21 23:18 Dose: 25 mg Documented by: [id number] Multivitamins/Minerals (Cerovite Adv Formula Tab) 1 tab PO [facility] Stop: 09/10/21 08:59 Last Admin: 08/11/21 09:43 Dose: 1 tab Documented by: [id number] Discontinued Medications Clopidogrel Bisulfate (Clopidogrel Bisulfate 300 Mg Tab) 300 mg PO NOW STA Stop: 08/10/21 19:01 Last Admin: 08/10/21 20:12 Dose: 300 mg Documented by: [id number] Sodium Chloride (Nss 1000ml) 1,000 mls @ 50 mls/hr IV .Q20H [facility] Stop: 09/09/21 17:44 Last Infusion: 08/10/21 23:36 Dose: 0 mls/hr Documented by: [id number] Admin: 08/10/21 20:13 Dose: 50 mls/hr Documented by: [id number] Sodium Chloride (Nss 1000ml) 1,000 mls @ 80 mls/hr IV .[id number] [facility] Stop: 08/11/21 11:14 Last Infusion: 08/11/21 12:48 Dose: 0 mls/hr Documented by: [id number] Admin: 08/10/21 23:36 Dose: 80 mls/hr Documented by: [id number] Insulin Glargine (Insulin Glargine Solostar 100 Units/Ml 3 Ml Pen) 70 units SC DAILY [facility] Stop: 09/10/21 08:59 Last Admin: 08/11/21 11:07 Dose: Not Given Documented by: [id number] Ioversol (Optiray 320 125ml) 119 ml IV ONCE ONE Stop: 08/10/21 17:51 Last Admin: 08/10/21 17:51 Dose: 1 ml Documented by: [id number] Description This is a 21 electrode EEG with a single channel dedicated to limited EKG. The electrodes were placed in accordance with the International 10-20 system. This EEG was obtained as a bedside recording and is of excellent technical quality with fewer no muscle movement artifacts. Photic stimulation was performed. During wakefulness is evidence for normal-appearing background alpha rhythm of up to 10 Hz maximum frequency and 3 V maximum amplitude. Is maximum posterior head regions bilaterally symmetrical. Centrally maximal symmetrical modest voltage mid frequency theta activity is seen. Beta activity seen bifrontally. Extremities provokes no significant driving response or photo myogenic or photoparoxysmal component There is no evidence for potentially epileptogenic activity Interpretation Normal EEG during wakefulness Clinical Correlation This is a normal EEG during wakefulness without evidence for focal generalized encephalopathy without evidence for potentially epileptogenic activity Norman Larson MD
--- NOTE | 2021-08-11 16:00 | Communication Note ---
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 and presented initially with symptoms of dysarthria dystaxia and an MRI showing multiple areas of confluent white matter changes possibly due to vascular lesion but possibly compatible with the findings one season this disorder She has been neurologically asymptomatic for quite some time, took coenzyme Q 10 for a number of years but stopped it years ago and had a heart attack about a year ago for which she took Plavix and then this was stopped and switched over to pure aspirin within the past several months She has a history of TIAs although one wonders of these warrant episodes of transient neurologic dysfunction related to her mitochondrial encephalopathy She does have underlying diabetes hypertriglyceridemia, coronary disease hypertension dyslipidemia Medications at home include aspirin 81 mg amlodipine, famotidine, fexofenadine, hydrocortisone/acetic acid eardrops, insulin, Lipo [employer] vision support, lorazepam, metoprolol, nitroglycerin In this setting then while driving yesterday she felt as if she was going to "pass out" stop the car checked her glucose found to be normal then ingested se veral aspirin and continue to drive but then had another episode of transient type during which she felt lightheaded and off-balance, pulled the car off the road called her daughter and was brought to the emergency room at which point all of her symptoms had cleared She underwent CT angiography CT scan of the head echocardiography etc. 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 She is a non-smoker nonconsumer of ethanol Review of systems reveals her to have been in subjective the normal health with no weight loss fever sweats chills no significant exposure to COVID-19 no new issues referable to head eyes ears nose and throat, cardiovascular pulmonary gastrointestinal genitourinary musculoskeletal dermatologic systems Exam reveals a blood pressure 118/73 pulse 66 respiration 18 temperature is 36 O2 saturation 98% on room air She is awake alert oriented in 3 spheres with an excellent memory She has a mild articulatory disturbance with a slightly dysarthric speech perhaps a slight left upper motor neuron facial asymmetry, normal eye movements normal facial sensation and no drift or pronation seen in the upper extremities no loss of facility of rapid repetitive motions, normal reflexes downgoing toes normal strength in despite her diabetes normal sensation to vibration light touch and temperature To my recollection her speech pattern is essentially unchanged from what I recall several years ago In light of her vascular risk factors I think we have to call these 2 brief events of near syncope and disequilibrium, transient ischemic attacks and reinstitute the dual antiplatelet therapy for 21 days as is standard practice and then emerged from this with a pure Plavix anticoagulation program I cannot be certain this is not a manifestation her mitochondrial encephalopathy as the events of neurologic dysfunction this entity can be very brief duration but are more often more protracted can be associated with MRI abnormalities that resolve. Unfortunately we really cannot do an MRI at this point and I have doubts that these 2 events were indeed part of her encephalopathy Just a heads bets however I would suggest she go back on the coenzyme Q 10 which she took for years I discussed this case with Garrison Henley and will arrange for Shanda to be seen in our office in about a month Norman Larson MD
[2021-08-11] MEDS ORDERED: STROKE PATIENT DISCHARGE STA (16:30)
--- NOTE | 2021-08-11 17:05 | Pharmacy Report ---
Pharmacist Stroke Counseling - Date of Service August 11, 2021 - Scope: Pharmacy has been consulted to provide medication discharge counseling for this patient admitted with possible transient ischemic attack as per the Pharmacist Discharge Counseling for Stroke Patients Protocol. - Medications on Discharge: Home Medications Medication Instructions Recorded Confirmed insulin aspart U-100 100 unit/mL 2 - 4 unit SUBCUT AC 05/14/20 08/10/21 (3 mL) subcutaneous pen (Novolog Flexpen U-100 Insulin aspart) insulin glargine 100 unit/mL (3 20 - 30 unit SUBCUT PM 05/14/20 08/11/21 mL) subcutaneous pen (Lantus Solostar U-100 Insulin) vit A 12,500 unit-zinc 12.5 1 cap PO QAM 05/14/20 08/10/21 kv-[id number]-pifld-bilberry-herb #261 capsule (Lipotriad Vision Support) amlodipine 2.5 mg tablet 2.5 mg PO DAILY 08/10/21 08/10/21 evolocumab 140 mg/mL subcutaneous 140 mg SUBCUT .[id number] 08/10/21 08/10/21 pen injector (Repatha SureClick) famotidine 40 mg tablet 40 mg PO DAILY 08/10/21 08/10/21 fexofenadine 180 mg tablet 180 mg PO DAILY PRN 08/10/21 08/10/21 hydrocortisone-acetic acid 1 %-2 % 3 drp OTIC (EAR) BID PRN 08/10/21 08/10/21 ear drops lorazepam 0.5 mg tablet 0.5 mg PO Q6H PRN 08/10/21 08/10/21 New Rx's Medication Instructions Recorded aspirin 81 mg tablet,delayed 81 mg PO QAM #90 tab 05/17/20 release metoprolol tartrate 25 mg tablet 25 mg PO BID #60 tab 05/17/20 nitroglycerin 0.4 mg sublingual 0.4 mg SUBLINGUAL UD PRN #30 tab 05/17/20 tablet (Nitrostat) clopidogrel 75 mg tablet 75 mg PO QAM #30 tab 08/11/21 coenzyme Q10 100 mg capsule 100 mg PO DAILY #30 cap 08/11/21 (CoQ-10) - Action: The above medications, specifically ones for stroke treatment/prophylaxis, have been reviewed in detail with the patient and/or patient telephone claims representative(s) prior to discharge. This includes indication, common adverse reactions, drug interactions, and medication administration. Medication counseling has been employed using the teach-back method to ensure understanding. - Outcome: The patient and/or patient telephone claims representative(s) have demonstrated understanding of the medications. Additional comments: * Discharge counseling provided via telephone prior to discharge. Patient was very hard of hearing. * Previously on Plavix; states she had minor bruising in the past on Plavix. Patient was under the impression that she was supposed to D/C aspirin and take Plavix for 21 days, then restart aspirin. Clarified that she needs to take both Plavix + aspirin x 21 days, then D/C aspirin and continue Plavix. Strongly encouraged her to read discharge instructions due to her hearing impairment. Thank you for allowing pharmacy to be involved in the care of this patient. Please call [phone] with any additional questions
--- NOTE | 2021-08-11 17:13 | Discharge Summary ---
Date of Service August 11, 2021 Admission HPI Per Admitting Provider A 65-year-old female with past medical history significant for type 1 diabetes, diabetic polyneuropathy, hyperlipidemia, FLETCHER (myopathy, encephalopathy, lactic acidosis, and stroke), history of chronic rhinitis, snoring, CAD, hypertension, history of Schatzki ring, she has dilated her esophagus about a week ago as per patient, history of degenerative cervical disk, history of variance of migraine, Meniere disease, sensorineural hearing loss, bilateral, has a cochlear implant on the left ear, macular degeneration, history of tobacco abuse, statin is contraindicated, status post coronary artery stent placement, history of colon polyps, history of slurred speech. Presents because of stroke-like symptoms. The patient lives with her son, ambulates without any support. Generally, can swallow okay. The patient was driving the car when she felt like she was going to pass out. She stopped the car and checked the blood sugars, these were okay. Then she drove again for some more time, again she felt the same feeling like passing out. She stopped the car and called the daughter and daughter came in and EMS was called. Initially, she also was having some trouble speaking, she was able to speak, but not making good sentences. She has trouble making words, could not find words, and also brain was foggy. She took aspirin en route and by the time she came in here, she was fine. Stroke alert was called. CT of the head and CTA of the head and neck were unremarkable. [facility] recommended to load with Plavix. We could not get MRI scan because of cochlear implants. Currently, resting comfortably and hemodynamically stable, able to give her history. Speech is clear currently. Somewhat hard of hearing because of sensorineural hearing loss and she has a cochlear implant on one side. Denies any headache. Currently no dizziness, no blurred visions, no earache, no runny nose, no sore throat, no cough, no fevers, no dysphagia, no chest pain, no shortness of breath, no nausea, no abdominal pain. Normal bowel and bladder movements. Admission Exam Per Admitting Provider GENERAL: The patient is of moderate build, not in acute distress. VITAL SIGNS: Temperature 36.9, pulse 62, respiratory rate 26, blood pressure 128/70, oxygen 97% on room air. HEENT: Pupils equal, round and reactive to light. Oral mucosa moist. NECK: No JVD, no neck masses. CARDIOVASCULAR: S1 and S2 heard. Regular rate and rhythm. No murmur, no gallop. RESPIRATORY SYSTEM: Normal AP diameter. No accessory muscle use. No wheezing, no crackles. ABDOMEN: Soft, bowel sounds present, nontender, no distention. CENTRAL NERVOUS SYSTEM: Alert and oriented. Speech is clear. No facial droop. No pronator drift. Power 5/5 in all extremities. Sensation is intact. Position sense intact. EXTREMITIES: No edema, no erythema. Principal Diagnosis Strokelike symptoms, likely TIA versus MELAS Discharge Exam GENERAL: The patient is of moderate build, not in acute distress. HEENT: NC/AT, Pupils equal, round and reactive to light. Oral mucosa moist. NECK: No JVD, no neck masses. CARDIOVASCULAR: S1 and S2 heard. Regular rate and rhythm. No murmur, no gallop. RESPIRATORY: Normal AP diameter. No accessory muscle use. No wheezing, no crackles. ABDOMEN: Soft, bowel sounds present, nontender, no distention. NEURO: Alert and oriented. Speech is clear. No facial droop. No pronator drift. Power 5/5 in all extremities. Sensation is intact. Position sense intact. EXTREMITIES: No edema, no erythema. Discharge Data Allergies Allergy/AdvReac Type Severity Reaction Status Date / Time atorvastatin AdvReac Intermediate myalgias, Unverified 08/10/21 17:58 dysarthria prednisone AdvReac Intermediate metabolic-h Unverified 08/10/21 17:58 yperglycemi a Consultations 08/10/21 19:25 ED Decision to Admit Stat 08/11/21 08:00 Consult Neurology Routine Ordered Studies 08/10/21 17:44 CT angio head w con Stat CT angio neck with con Stat CT head/brain wo con Stat Hospital Course (1) MELAS (mitochondrial encephalopathy, lactic acidosis and stroke-like episodes): TIA This is a 65-year-old female who presents with stroke-like symptoms. 1. Stroke-like symptoms: Possible transient ischemic attack. Has some speech difficulty and also some "fogginess in the head" that got resolved. Initial workup is negative. Could not do MRI because of the cochlear implants. The patient was loaded with Plavix. The patient had a stroke alert. Monitored in the med tele - remains in sinus rhythm. Echocardiogram - normal LV chamber size and wall thickness. Normal LV systolic function, EF 55 to 60%. No segmental LV wall motion abnormalities noted. Grade 2 diastolic dysfunction. The interatrial septum is intact with no evidence for an ASD. Injection of contrast documented no interatrial shunt. Aortic valve sclerosis mild, without significant aortic valvular stenosis. Mild aortic regurg. Mild mitral regurg. Mild tricuspid regurg. EEG - Normal EEG during wakefulness Neurology consulted - Continue her home aspirin.Added Plavix. Will DC on aspirin and Plavix for 21 days, then take Plavix daily alone She will need to follow-up with neurology in about a month. It is also recommended that she resumes taking coenzyme Q 10, 1000 mg daily. 2. History of MELOS syndrome: Follow up as outpatient w/ neurology. Recommendations as above, resume coenzyme Q 10 3. Coronary artery disease: Status post stent. Continue aspirin, beta rebecca. 4. History of hypertension: Continue her amlodipine, metoprolol. Will monitor the blood pressure. 5. History of diabetes, type I: Hemoglobin A1c 8.8% Cont. long acting insulin dose and insulin sliding scale. follow the blood sugars. Continue follow-up with PCP as outpatient 6. Anxiety: Ativan p.r.n. DVT prophylaxis: Sequential compression devices for now. DISPOSITION: Plan to discharge home. Code: full code. Total Time Total Time Spent Total Time Spent (In Minutes): 35 Discharge Plan Discharge Items Patient Disposition: Home - Self-Care Reason For Visit: STROKE LIKE SYMPTOMS Discharge Diagnosis: Strokelike symptoms, likely TIA versus MELAS Condition on Discharge: Good Activity: Per Instructions section Non-emergency contact: Primary Care Provider and Neurologist Call non-emergency contact if: you have any medication questions and your symptoms worsen Follow-up/Referrals: Amairani Boyd MD [Primary Care Provider] - (Date & Time 08/16/2021 1:40 PM Provider Amairani Ramirez MD Department Family Medicine [facility] ) Diet: Heart Healthy Addtl Attending Provider Instructions: Follow up with the primary care doctor, the appointment was scheduled for you for August 16. You will also need to follow-up with neurology, you will be contacted about the appointment. Take aspirin and Plavix daily for 21 days, then take Plavix alone daily. It is also recommended that you take coenzyme Q 10 daily. Pending Studies at Discharge: No Stand-Alone Forms: Medications to Prevent Stroke, My [facility], Smoking Cessation Medications and DC Order Prescriptions: New clopidogrel 75 mg Tablet 75 mg PO QAM Qty: 30 RF: 0 Continued insulin aspart U-100 [Novolog Flexpen U-100 Insulin] 100 unit/mL (3 mL) insulin pen 2 - 4 unit SUBCUT AC RF: 0 Lantus Solostar U-100 Insulin 100 unit/mL (3 mL) Insulin Pen 20 - 30 unit SUBCUT PM RF: 0 Lipotriad Vision Support 12,500 unit- 12.5 mg Capsule 1 cap PO QAM RF: 0 metoprolol tartrate 25 mg Tablet 25 mg PO BID Qty: 60 RF: 2 nitroglycerin [Nitrostat] 0.4 mg Tablet, Sublingual 0.4 mg sublingual UD PRN (Reason: chest pain) Qty: 30 RF: 1 aspirin 81 mg Tablet,Delayed Release (Dr/Ec) 81 mg PO QAM Qty: 90 RF: 1 famotidine 40 mg tablet 40 mg PO DAILY RF: 0 amlodipine 2.5 mg tablet 2.5 mg PO DAILY RF: 0 fexofenadine [Evelyn] 180 mg Tablet 180 mg PO DAILY PRN (Reason: SEASONAL ALLERGIES) RF: 0 lorazepam 0.5 mg tablet 0.5 mg PO Q6H PRN (Reason: Anxiety) RF: 0 hydrocortisone-acetic acid 1-2 % Drops 3 drp OTIC (EAR) BID PRN (Reason: ITCHY EARS) RF: 0 Repatha SureClick 140 mg/mL pen injector 140 mg SUBCUT .[id number] RF: 0 Discharge Orders: Discharge Order (Routine); Ordered 08/11/21 Ordered By: Garrison Candelario Admission Data Admit Date/Time: 08/10/21 20:48 Attending Provider: Garrison Candelario Admit Provider: José Luis Erickson Primary Care Provider: Amairani Boyd Other Providers: José Luis Erickson ; Jennifer Rg
== END 2021-08-11 18:14 | disposition home or self-care (01) | DRG 642 ==
LOC: ED 17:38 → 2N 20:48

== ENCOUNTER 2022-01-14 16:18 | Observation (INO) ==
--- NOTE | 2022-01-14 16:30 | Emergency Department Note ---
History of Present Illness General Chief complaint: Chest Pain Stated complaint: Chest Pain Time Seen by Provider: 01/14/22 16:20 Source: patient and EMS Mode of arrival: EMS History of Present Illness Provider complaint: Chest pain Onset (ago): hour(s) Location: chest Radiation: extremity (Left arm) Pain Consistency: + now resolved Quality: + sharp Relieved By: + medication (Nitroglycerin) Associated symptoms: + chest pain and + shortness of breath; no cough, no diaphoresis, no fever/chills or no nausea/vomiting This is a 66-year-old female with a history of previous cardiac stent presenting with chest pain starting this afternoon. She states that the pain occurred after scientology and after lunch but she does not know exactly what time. She states it is in the middle of her chest rating into her left arm. She describes it as sharp and worse than her prior heart attack. She did take nitroglycerin and the pain is now completely resolved. She did have shortness of breath with it which is also now resolved. She denies any diaphoresis. She has had no recent fever, cough or cold symptoms, abdominal pain, vomiting, diarrhea or leg swelling or pain. She does take Plavix and aspirin and has a prior history of cardiac stent. Home Medications Medication Instructions Recorded Confirmed Type insulin aspart U-100 100 unit/mL 2 - 4 unit SUBCUT TIDM 05/14/20 01/14/22 History (3 mL) subcutaneous pen (Novolog Flexpen U-100 Insulin aspart) insulin glargine 100 unit/mL (3 30 unit SUBCUT PM 05/14/20 01/14/22 History mL) subcutaneous pen (Lantus Solostar U-100 Insulin) vit A 12,500 unit-zinc 12.5 1 cap PO QAM 05/14/20 01/14/22 History [id number]-bilberry-herb #261 capsule (Lipotriad Vision Support) aspirin 81 mg tablet,delayed 81 mg PO QAM #90 tab 05/17/20 01/14/22 Rx release metoprolol tartrate 25 mg tablet 25 mg PO BID #60 tab 05/17/20 01/14/22 Rx nitroglycerin 0.4 mg sublingual 0.4 mg SUBLINGUAL UD PRN #30 tab 05/17/20 01/14/22 Rx tablet (Nitrostat) amlodipine 2.5 mg tablet 2.5 mg PO DAILY 08/10/21 01/14/22 History evolocumab 140 mg/mL subcutaneous 140 mg SUBCUT .[id number] 08/10/21 01/14/22 History pen injector (Jaime Nicholson) famotidine 40 mg tablet 40 mg PO DAILY 08/10/21 01/14/22 History fexofenadine 180 mg tablet 180 mg PO DAILY PRN 08/10/21 01/14/22 History hydrocortisone-acetic acid 1 %-2 % 3 drp OTIC (EAR) BID PRN 08/10/21 01/14/22 History ear drops lorazepam 0.5 mg tablet 0.5 mg PO Q6H PRN 08/10/21 01/14/22 History clopidogrel 75 mg tablet 75 mg PO QAM #30 tab 08/11/21 01/14/22 Rx bempedoic acid 180 mg tablet 180 mg PO DAILY 01/14/22 01/14/22 History (Nexletol) coenzyme Q10 100 mg capsule 100 mg PO DAILY 01/14/22 01/14/22 History (CoQ-10) pantoprazole 20 mg tablet,delayed 20 mg PO DAILY 01/14/22 01/14/22 History release Allergies Allergy/AdvReac Type Severity Reaction Status Date / Time atorvastatin AdvReac Intermediate myalgias, Verified 01/14/22 17:13 dysarthria prednisone AdvReac Intermediate metabolic-h Verified 01/14/22 17:13 yperglycemi a Past Med/Surg History Medical History (Updated 01/14/22 @ 18:10 by Rajinder Webb MD) Atherosclerosis of coronary artery CAD (coronary artery disease) History of TIA (transient ischemic attack) HLD (hyperlipidemia) Hypertension Macular degeneration MELAS (mitochondrial encephalopathy, lactic acidosis and stroke-like episodes) Mnire's disease Schatzki's ring Statin intolerance Type 1 diabetes mellitus Surgical History (Updated 01/14/22 @ 16:55 by Reece Byrd) History of cholecystectomy History of cochlear implant Left in 2014 History of colonoscopy with polypectomy History of heart artery stent History of hysterectomy History of left heart catheterization 07/2019 which revealed 30% proximal LAD otherwise clean coronaries Family History (System 01/14/22 @ 16:55 by Reece Byrd) Mother Coronary heart disease, Onset Age: 70 Father Coronary heart disease, Onset Age: 50 Social History (System 01/14/22 @ 16:55 by Reece Byrd) Smoking Status: Never smoker Second Hand Exposure: No; Hx Alcohol Use: No Hx Substance Use: No Preferred Language: Cuban Communication Ability: Effective Hearing Ability: Cochlear Implant Clinical Veterinarian Required: No Beliefs That Will Affect Care: None marital status: Current Living Situation: Family Current Living Situation Comment: with son current occupational status: disabled How many Children do You have: 2 Feels Safe at Home: Yes Assistive Devices: Cane Review of Systems See HPI for pertinent positives & negatives. and A total of 10 systems reviewed and were otherwise negative Physical Exam Vital Signs Vital Signs - 24 hr 01/14/22 16:30 01/14/22 16:32 01/14/22 17:07 Temperature 36.8 C Temperature Source Oral Pulse Rate 110 H 111 H Pulse Rate [Right Finger] 98 H Pulse Rhythm Regular Respiratory Rate 22 20 16 Respiratory Depth Normal Blood Pressure 169/89 H Blood Pressure [Right Arm] 136/77 Blood Pressure Mean 115 Blood Pressure Mean [Right Arm] 96 Pulse Oximetry 99 97 97 Oxygen Delivery Method Room Air Room Air Sepsis Recent Fever Within 48 Hours No Sepsis New/Unexplained Change in Mental Status No Sepsis Action Taken by Nursing No Action Required 01/14/22 17:53 01/14/22 18:42 Temperature Temperature Source Pulse Rate Pulse Rate [Right Finger] 120 H 101 H Pulse Rhythm Respiratory Rate 22 16 Respiratory Depth Blood Pressure Blood Pressure [Right Arm] 162/89 H 135/76 Blood Pressure Mean Blood Pressure Mean [Right Arm] 113 95 Pulse Oximetry 93 97 Oxygen Delivery Method Room Air Sepsis Recent Fever Within 48 Hours Sepsis New/Unexplained Change in Mental Status Sepsis Action Taken by Nursing Constitutional: Vital signs reviewed. Eyes: Pupils are equal round reactive to light. Conjunctiva are noninjected. ENT: Pharynx is clear without erythema or exudate. Mucous membranes are moist. Neck supple without meningeal signs. Respiratory: Clear to auscultation bilaterally. Breath sounds are equal bilaterally. Cardiovascular: Tachycardic. Regular rhythm. Heart rate 110. GI: Soft, nondistended and nontender. Bowel sounds are present. Musculoskeletal: No peripheral edema. No lower extremity tenderness. Integumentary: No cyanosis. or jaundice. Neurological: The patient is awake and alert. Very hard of hearing. Psychiatric: Normal affect. Not anxious appearing. Course Administered Medications Discontinued Medications Fentanyl Citrate (Fentanyl Citrate 100 Mcg/2 Ml Vial) 50 mcg IV NOW STA Stop: 01/14/22 17:45 Last Admin: 01/14/22 17:54 Dose: 50 mcg Documented by: [id number] Ioversol (Optiray 320 125ml) 120 ml IV ONCE ONE Stop: 01/14/22 17:37 Last Admin: 01/14/22 17:36 Dose: 120 ml Documented by: [id number] Ondansetron HCl (Ondansetron Inj 2 Mg/Ml 2 Ml Vial) 4 mg IV NOW STA Stop: 01/14/22 17:45 Last Admin: 01/14/22 17:55 Dose: Not Given Documented by: [id number] Ondansetron HCl (Ondansetron Inj 2 Mg/Ml 2 Ml Vial) Confirm Administered Dose 4 mg .ROUTE .STK-MED ONE Stop: 01/14/22 17:46 Last Admin: 01/14/22 17:55 Dose: 4 mg Documented by: [id number] Medical Decision Making Differential Diagnosis Unstable angina, LA, peptic ulcer disease, GERD, anxiety, PE Medical Records Attestation: I reviewed the patient's medical records. I did perform a limited focused review of portions of the patient's old chart on the electronic medical record. The patient was admitted in April 2020 for NSTEMI and had a cardiac stent placed. Home Medications Current Medication List: was personally reviewed by me Laboratory Data Attestation: I reviewed the patient's lab results. Result diagrams: 01/14/22 16:31 01/14/22 16:31 Lab Results 01/14/22 01/14/22 01/14/22 Range/Units 16:31 16:31 16:31 WBC 9.89 (4.8-10.8) K/uL RBC 4.07 L (4.2-5.4) M/uL Hgb 12.0 (12.0-16.0) g/dL Hct 35.5 L (37-47) % MCV 87.2 (80-100) fL MCH 29.5 (25-34) pg MCHC 33.8 (32-36) g/dL RDW Std Deviation 42.0 (36.4-46.3) fL RDW Coeff of Marj 13.0 (11.5-14.5) % Plt Count 310 (130-400) K/uL MPV 10.9 H (7.4-10.4) fL Immature Gran % (Auto) 0.1 % Neut % (Auto) 68.0 % Lymph % (Auto) 22.5 % Butts % (Auto) 7.3 % Eos % (Auto) 1.5 % Baso % (Auto) 0.6 % Neut # (Auto) 6.72 H (1.4-6.5) K/uL Lymph # (Auto) 2.23 (1.2-3.4) K/uL Butts # (Auto) 0.72 H (0.11-0.59) K/uL Eos # (Auto) 0.15 (0-0.5) K/uL Baso # (Auto) 0.06 (0-0.2) K/uL Immature Gran # (Auto) 0.01 (0.00-0.02) K/uL D-Dimer (0-500) ug/L FEU Sodium 136 (136-145) mmol/L Potassium 3.8 (3.5-5.1) mmol/L Chloride 100 (98-107) mmol/L Carbon Dioxide 25 (21-32) mmol/L Anion Gap 11 (3-11) BUN 17 (6-23) mg/dl Creatinine 0.70 (0.6-1.2) mg/dl Est Cr Clr Drug Dosing 69.2 ml/min Est GFR ( Amer) 105.4 ml/min Est GFR (Non-Af Amer) 90.9 ml/min BUN/Creatinine Ratio 24.3 H (10-20) Glucose 236 H (70-99(Fasting)) mg/dl Calcium 9.0 (8.5-10.1) mg/dl Total Bilirubin 0.4 (0.2-1.0) mg/dl AST 18 (13-39) U/L ALT 11 (7-52) U/L Alkaline Phosphatase 68 (34-104) U/L Troponin I 0.03 (0-0.04) ng/ml Total Protein 7.0 (6.0-8.3) gm/dl Albumin 4.3 (3.4-5.0) gm/dl Globulin 2.7 (2.5-4.0) gm/dl Albumin/Globulin Ratio 1.6 (0.9-2) Lipase 22 (11-82) U/L SARS-CoV-2, RNA, NAAT NEGATIVE (NEGATIVE) 01/14/22 Range/Units 16:31 WBC (4.8-10.8) K/uL RBC (4.2-5.4) M/uL Hgb (12.0-16.0) g/dL Hct (37-47) % MCV (80-100) fL MCH (25-34) pg MCHC (32-36) g/dL RDW Std Deviation (36.4-46.3) fL RDW Coeff of Marj (11.5-14.5) % Plt Count (130-400) K/uL MPV (7.4-10.4) fL Immature Gran % (Auto) % Neut % (Auto) % Lymph % (Auto) % Butts % (Auto) % Eos % (Auto) % Baso % (Auto) % Neut # (Auto) (1.4-6.5) K/uL Lymph # (Auto) (1.2-3.4) K/uL Butts # (Auto) (0.11-0.59) K/uL Eos # (Auto) (0-0.5) K/uL Baso # (Auto) (0-0.2) K/uL Immature Gran # (Auto) (0.00-0.02) K/uL D-Dimer 2060 H* (0-500) ug/L FEU Sodium (136-145) mmol/L Potassium (3.5-5.1) mmol/L Chloride (98-107) mmol/L Carbon Dioxide (21-32) mmol/L Anion Gap (3-11) BUN (6-23) mg/dl Creatinine (0.6-1.2) mg/dl Est Cr Clr Drug Dosing ml/min Est GFR ( Amer) ml/min Est GFR (Non-Af Amer) ml/min BUN/Creatinine Ratio (10-20) Glucose (70-99(Fasting)) mg/dl Calcium (8.5-10.1) mg/dl Total Bilirubin (0.2-1.0) mg/dl AST (13-39) U/L ALT (7-52) U/L Alkaline Phosphatase (34-104) U/L Troponin I (0-0.04) ng/ml Total Protein (6.0-8.3) gm/dl Albumin (3.4-5.0) gm/dl Globulin (2.5-4.0) gm/dl Albumin/Globulin Ratio (0.9-2) Lipase (11-82) U/L SARS-CoV-2, RNA, NAAT (NEGATIVE) Imaging Data Radiologist's Impression: Chest X-Ray 01/14/22 16:28 XR chest 1V portable HISTORY: 66 years-old Female Chest Pain acute atypical chest pain with headache COMPARISON: None TECHNIQUE: Portable AP view of the chest FINDINGS: The cardiomediastinal and hilar silhouettes are within normal limits. Calcified plaque of the thoracic aorta. No pneumothorax, pleural effusion, airspace consolidation or overt pulmonary edema. The bones appear grossly intact. IMPRESSION: No acute process. ACT 112: Negative or not required by law. The above report was generated using voice recognition software. It may contain grammatical, syntax or spelling errors. Electronically signed by: Pk Holt M.D. 01/14/2022 4:51 PM Chest CTA 01/14/22 17:01 CT angio chest PE protocol CT DOSE: 229.46 mGy.cm HISTORY: 66 years-old Female with cp eval for PE. Acute atypical chest pain with shortness of breath TECHNIQUE: Multiple CTA images of the chest were obtained after the intravenous administration of 120 ml Optiray. Coronal and sagittal MIPS were obtained from the axial data set and were submitted for review. All measurements were obtained according to NASCET criteria. A dose lowering technique was utilized adhering to the principles of ALARA. COMPARISON: Chest radiograph of same day, CTA chest 05/14/2020, chest CT 08/31/2016. FINDINGS: CTA: The heart is normal in size. Moderate coronary artery calcifications. Mild atherosclerosis of the thoracic aorta without aneurysm or dissection. There is patency of the imaged great vessels. Unremarkable pulmonary artery. No pulmonary emboli identified. CT CHEST: No thyroid nodule or adenopathy. No pneumothorax, pleural effusion or overt pulmonary edema. Stable clustered solid pulmonary nodules of the lingula measure up to 5 mm. There is mild mucous plugging with bronchiectasis within the inf erior segment lingula, progressively worsened from 2016. 4 mm solid nodule of the lateral basal segment left lower lobe on image 67 series 4 is unchanged from 2016 and likely benign. Mild clustered tree-in-bud nodules are noted within the right middle and lower lobes, also stable. Central airways are patent. Mild nonspecific distal esophageal wall thickening. Unremarkable soft tissues. No acute fracture or suspicious bone lesion. IMPRESSION: 1. No pulmonary emboli. 2. Mild bronchiectasis with mucous plugging of the lingula. Mild chronic scattered bibasilar tree-in-bud nodules are compatible with an infectious or inflammatory bronchiolitis. Nontuberculous mycobacterium is a differential consideration. 3. No adenopathy or pleural effusion. 4. Moderate coronary artery calcifications. ACT 112: Negative or not required by law. The above report was generated using voice recognition software. It may contain grammatical, syntax or spelling errors. Electronically signed by: Pk Holt M.D. 01/14/2022 6:02 PM ECG Data Attestation: I personally reviewed and interpreted this ECG as follows: Indication: + chest pain Rate (beats per minute): 119 Rhythm: + sinus tachycardia ECG [place]: + Left axis deviation ECG ST segments: + T-wave inversions ECG Findings: + Q waves; no PVCs Comparison ECG Date: from (August 10, 2021) Change: no significant change Additional Comments: Per my interpretation repeat chest x-ray performed at 1742 when the patient had recurrent chest pain shows sinus tachycardia with a rate of 142 bpm. There is no ST elevation. There is some nonspecific ST changes which appear to be likely rate related. She has continued T wave inversions in the high lateral leads and Q waves in the septal leads which are unchanged. MDM Narrative I did evaluate the patient as noted above. The patient was brought here by ambulance for chest pain. She describes it as sharp and worse than her heart attack. She was given aspirin in the ambulance and she took nitroglycerin prior to arrival. Her chest pain is now resolved. IV access was established. I did place an order for continuous cardiac monitoring. The monitor showed sinus tachycardia at a rate of 115 bpm. I did order and personally review the patient 's 12-lead EKG as described above. She has Q waves and T wave inversions but her EKG is unchanged from her prior as noted above. No ST elevations are noted. I did order and personally reviewed the images of the patient's chest x-ray as described above. There is no evidence of acute process. I did order and review the patient's blood work as noted in the electronic medical record. CBC is unre markable without leukocytosis or anemia. Hemoglobin is 12. Electrolytes are unremarkable. LFTs and lipase are within normal limits. Glucose is 236. D- dimer is elevated 2059. I did reassess the patient. I did discuss the test results with her. Her tachycardia resolved and her heart rate is now 96. I did recommend CT angiogram of the chest which she was agreeable with. I did order a CT angiogram of the chest. I did review the images myself as well as the radiology report as described above. When she came back from CAT scan she started having chest pain again. It was severe and sharp. She was screaming. She was given fentanyl 50 mcg IV and Zofran IV. I did repeat a twelve-lead EKG which showed no ST elevations. She had some nonspecific ST changes likely related to rate. On reassessment the patient is feeling much better. Her chest pain is resolved. She is calm. I did recommend hospitalization for further care and evaluation. CT does not show any evidence of pulmonary emboli. She does have mild bronchiectasis with mucous plugging of the lingula. I did discuss the case with the hospitalist and case packer and sealer. Impression & Plan Chest pain, Tachycardia, Abnormal CT scan of lung, Hyperglycemia Discharge Plan Visit Data Chief Complaint: Chest Pain Stated Complaint: Chest Pain ED Provider: Rajinder Webb Discharge Problem: Chest pain, Tachycardia, Abnormal CT scan of lung, Hyperglycemia Patient Disposition: Being Evaluated by Hospitalist Forms Stand Alone Forms: My [facility] Prescriptions Prescriptions: No Action insulin aspart U-100 [Novolog Flexpen U-100 Insulin] 100 unit/mL (3 mL) insulin pen 2 - 4 unit SUBCUT TIDM RF: 0 Lantus Solostar U-100 Insulin 100 unit/mL (3 mL) Insulin Pen 30 unit SUBCUT PM RF: 0 Lipotriad Vision Support 12,500 unit- 12.5 mg Capsule 1 cap PO QAM RF: 0 metoprolol tartrate 25 mg Tablet 25 mg PO BID Qty: 60 RF: 2 nitroglycerin [Nitrostat] 0.4 mg Tablet, Sublingual 0.4 mg sublingual UD PRN (Reason: chest pain) Qty: 30 RF: 1 aspirin 81 mg Tablet,Delayed Release (Dr/Ec) 81 mg PO QAM Qty: 90 RF: 1 famotidine 40 mg tablet 40 mg PO DAILY RF: 0 amlodipine 2.5 mg tablet 2.5 mg PO DAILY RF: 0 fexofenadine 180 mg Tablet 180 mg PO DAILY PRN (Reason: SEASONAL ALLERGIES) RF: 0 lorazepam 0.5 mg tablet 0.5 mg PO Q6H PRN (Reason: Anxiety) RF: 0 hydrocortisone-acetic acid 1-2 % Drops 3 drp OTIC (EAR) BID PRN (Reason: ITCHY EARS) RF: 0 Repatha SureClick 140 mg/mL pen injector 140 mg SUBCUT .[id number] RF: 0 clopidogrel 75 mg Tablet 75 mg PO QAM Qty: 30 RF: 0 pantoprazole 20 mg Tablet,Delayed Release (Dr/Ec) 20 mg PO DAILY RF: 0 coenzyme Q10 [CoQ-10] 100 mg Capsule 100 mg PO DAILY RF: 0 Nexletol 180 mg Tablet 180 mg PO DAILY RF: 0 Referrals Referrals: PCP,NO [Physician] - Discharge Problem: Chest pain Qualifiers: Chest pain type: unspecified Qualified Code(s): R07.9 - Chest pain, unspecified
[2022-01-14 16:40] LABS: Basophils # (auto) 0.06 K/uL (0-0.2); Basophils % (auto) 0.6 %; Eosinophils # (auto) 0.15 K/uL (0-0.5); Eosinophils % (auto) 1.5 %; Hematocrit (blood only) 35.5 % (37-47); Immature Granulocytes # (auto) 0.01 K/uL (0.00-0.02); Immature Granulocytes % (auto) 0.1 %; Lymphocytes # (auto) 2.23 K/uL (1.2-3.4); Lymphocytes % (auto) 22.5 %; Mean Corpuscular Hemoglobin 29.5 pg (25-34); Mean Corpuscular Hgb Conc 33.8 g/dL (32-36); Mean Corpuscular Volume 87.2 fL (80-100); Mean Platelet Volume 10.9 fL (7.4-10.4); Monocytes # (auto) 0.72 K/uL (0.11-0.59); Monocytes % (auto) 7.3 %; Neutrophils # (auto) 6.72 K/uL (1.4-6.5); Platelet Count 310 K/uL (130-400); Red Blood Count 4.07 M/uL (4.2-5.4); White Blood Count 9.89 K/uL (4.8-10.8)
--- NOTE | 2022-01-14 16:52 | XRay Report ---
XR chest 1V portable HISTORY: 66 years-old Female Chest Pain acute atypical chest pain with headache COMPARISON: None TECHNIQUE: Portable AP view of the chest FINDINGS: The cardiomediastinal and hilar silhouettes are within normal limits. Calcified plaque of the thoraci c aorta. No pneumothorax, pleural effusion, airspace consolidation or overt pulmonary edema. The bone s appear grossly intact. IMPRESSION: No acute process. ACT 112: Negative or not required by law. The above report was generated using voice recognition software. It may contain grammatical, syntax o r spelling errors. Electronically signed by: Pk Holt M.D. 01/14/2022 4:51 PM
[2022-01-14 16:59] LABS: Albumin Globulin Ratio 1.6 (0.9-2); Albumin Level 4.3 gm/dl (3.4-5.0); BUN Creatinine Ratio 24.3 (10-20); Bilirubin,Total 0.4 mg/dl (0.2-1.0); Creatinine Clr Calc Pharmacy 69.2 ml/min; Est GFR (African American) 105.4 ml/min; Est GFR (Non-African American) 90.9 ml/min; Globulin 2.7 gm/dl (2.5-4.0); Potassium 3.8 mmol/L (3.5-5.1)
[2022-01-14 17:00] LABS: D Dimer 2060 ug/L FEU (0-500)
[2022-01-14 17:02] LABS: Troponin I 0.03 ng/ml (0-0.04)
[2022-01-14] MEDS ORDERED: OPTIRAY 320 125ml IV ONE (17:36)
[2022-01-14] MEDS ORDERED: ONDANSETRON INJ 2 MG/ML 2 ML VIAL IV STA (17:44)
[2022-01-14] MEDS ORDERED: fentaNYL citrate 100 MCG/2 ML VIAL IV STA (17:44)
[2022-01-14] MEDS ORDERED: ONDANSETRON INJ 2 MG/ML 2 ML VIAL ONE (17:45)
--- NOTE | 2022-01-14 18:04 | CT Scan Report ---
CT angio chest PE protocol CT DOSE: 229.46 mGy.cm HISTORY: 66 years-old Female with cp eval for PE. Acute atypical chest pain with shortness of breat h TECHNIQUE: Multiple CTA images of the chest were obtained after the intravenous administration of 120 ml Optiray. Coronal and sagittal MIPS were obtained from the axial data set and were submitted for review. All measurements were obtained according to NASCET criteria. A dose lowering technique was u tilized adhering to the principles of ALARA. COMPARISON: Chest radiograph of same day, CTA chest 05/14/2020, chest CT 08/31/2016. FINDINGS: CTA: The heart is normal in size. Moderate coronary artery calcifications. Mild atherosclerosis of the tho racic aorta without aneurysm or dissection. There is patency of the imaged great vessels. Unremarkabl e pulmonary artery. No pulmonary emboli identified. CT CHEST: No thyroid nodule or adenopathy. No pneumothorax, pleural effusion or overt pulmonary edema. Stable c lustered solid pulmonary nodules of the lingula measure up to 5 mm. There is mild mucous plugging wit h bronchiectasis within the inferior segment lingula, progressively worsened from 2016. 4 mm solid no dule of the lateral basal segment left lower lobe on image 67 series 4 is unchanged from 2016 and lik sebastian benign. Mild clustered tree-in-bud nodules are noted within the right middle and lower lobes, als o stable. Central airways are patent. Mild nonspecific distal esophageal wall thickening. Unremarkable soft tissues. No acute fracture or s uspicious bone lesion. IMPRESSION: 1. No pulmonary emboli. 2. Mild bronchiectasis with mucous plugging of the lingula. Mild chronic scattered bibasilar tree-in- bud nodules are compatible with an infectious or inflammatory bronchiolitis. Nontuberculous mycobacte rium is a differential consideration. 3. No adenopathy or pleural effusion. 4. Moderate coronary artery calcifications. ACT 112: Negative or not required by law. The above report was generated using voice recognition software. It may contain grammatical, syntax o r spelling errors. Electronically signed by: Pk Holt M.D. 01/14/2022 6:02 PM
--- NOTE | 2022-01-14 19:52 | History & Physical Report ---
Date of Service January 14, 2022 Assessment & Plan (1) Chest pain: (2) CAD (coronary artery disease): Plan: Patient is 66 y/o F with PMH CAD, NSTEMI, VÍCTOR TO LAD 2019, DM I, HTN, dyslipidemia, MELAS (mitochondrial encephalopathy, lactic acidosis, stroke), GERD, Schatzki ring scented to ER with complaint of chest pain, left arm pain, nausea, SOB today while driving. Took 4 SL nitro without relief. Given four 81mg aspirin by EMS Patient under stress with recent of her daughter H/O history cardiac cath at [facility] 05/16/2020: VÍCTOR to proximal LAD, subtotal occlusion of RPDA branch of the distal right coronary artery supplied with [id number] collaterals, treated medically, not amendable to revascularization. Had recurrent angina which prompted a nuclear stress test in 11/2020 that was abnormal. Repeat cardiac cath at [facility] [facility] 12/12/2020: Patent LAD stent, distal RPDA stenosis again observed with axoo-zo-xidms collaterals unchanged Today In ER recurrent onset of pain again and was given fentanyl with resolution of pain. No further SOB, no extremity pain EKG without ST elevation, initial troponin: 0.03 D-dimer is elevated at 2059. CTA chest negative for PE R/O ACS No current CP Repeat EKG in am Will trend troponin Echo lipid panel in am. Is not candidate for statin Patient did not have medications today, suspect tachycardia secondary to missed metoprolol trait will dose now continue aspirin, metoprolol tartrate, Plavix, Repatha, Nexletol Nitro prn CP and repeat EKG for CP Cardiology consult Bronchiectasis Mucous plugging CT chest: Mild bronchiectasis with mucous plugging of the lingula. Mild chronic scattered bibasilar tree-in-bud nodules are compatible with an infectious or inflammatory bronchiolitis. Nontuberculous mycobacterium is a differential consideration. Patient denies cough. Reports shortness of breath with episode of chest pain today however otherwise denies shortness of breath Flutter valve Pulmonology consult DM I A1c: 8.6 in 08/2021 Continue home Lantus NovoLog sliding scale per protocol A1c in a.m. HTN Continue amlodipine, metoprolol tartrate MELAS (mitochondrial encephalopathy, lactic acidosis, stroke) Continue aspirin, Plavix GERD Continue PPI DVT Prophylaxis heparin SQ Full code as per discussion with pt Follows with Dr Jose Ramirez for routine care Pt was seen and care coordinated with Dr Erickson. See addendum History of Present Illness Chief Complaint: CP Primary Care Provider: Amairani Ramirez MD Patient is 66 y/o F with PMH CAD, NSTEMI, VÍCTOR TO LAD 2019, DM I, HTN, dyslipidemia, MELAS (mitochondrial encephalopathy, lactic acidosis, stroke), GERD, Schatzki ring scented to ER with complaint of chest pain. Patient states today went to [employer], went out to eat for lunch and drove home and when she was in her driveway developed Left chest pain around left breast that radiated to left shoulder and to left arm. Reports nausea and felt short of breath. Took 4 SL nitro "one right after the other" this afternoon without relief. Called EMS and reports was given four 81mg aspirin that seemed to help pain. Upon ER arrival reports onset of pain again and was given fentanyl with resolution of pain. No further SOB. Reports buried her daughter yesterday and is under a lot of stress. Did not have any medications today. After nitro reports some GRIMES. Denies fever/chills, diaphoresis, N/V/D/C, dizziness, syncope, vision changes, neck pain,orthopnea, palpitations, cough, sore throat, choking, otalgia, rhinorrhea, abdominal pain, paresthesias, extremity weakness, extremity edema, rashes, urinary symptoms. Patient with history cardiac cath at [facility] 05/16/2020: VÍCTOR to proximal LAD, subtotal occlusion of RPDA branch of the distal right coronary artery supplied with nezn-tj-geect collaterals, treated medically, not amendable to revascularization. Had recurrent angina which prompted a nuclear stress test in 11/2020 that was abnormal. Repeat cardiac cath at [facility] [place] 12/12/2020: Patent LAD stent, distal RPDA stenosis again observed with iieb-yo-frvja collaterals unchanged Allergies Allergy/AdvReac Type Severity Reaction Status Date / Time atorvastatin AdvReac Intermediate myalgias, Verified 01/14/22 17:13 dysarthria prednisone AdvReac Intermediate metabolic-h Verified 01/14/22 17:13 yperglycemi a Home Medications Medication Instructions Recorded Confirmed Type insulin aspart U-100 100 unit/mL 2 - 4 unit SUBCUT TIDM 05/14/20 01/14/22 History (3 mL) subcutaneous pen (Novolog Flexpen U-100 Insulin aspart) insulin glargine 100 unit/mL (3 30 unit SUBCUT PM 05/14/20 01/14/22 History mL) subcutaneous pen (Lantus Solostar U-100 Insulin) vit A 12,500 unit-zinc 12.5 1 cap PO QAM 05/14/20 01/14/22 History xv-ybpwin-whjna-bilberry-herb #261 capsule (Lipotriad Vision Support) aspirin 81 mg tablet,delayed 81 mg PO QAM #90 tab 05/17/20 01/14/22 Rx release metoprolol tartrate 25 mg tablet 25 mg PO BID #60 tab 05/17/20 01/14/22 Rx nitroglycerin 0.4 mg sublingual 0.4 mg SUBLINGUAL UD PRN #30 tab 05/17/20 01/14/22 Rx tablet (Nitrostat) amlodipine 2.5 mg tablet 2.5 mg PO DAILY 08/10/21 01/14/22 History evolocumab 140 mg/mL subcutaneous 140 mg SUBCUT .[id number] 08/10/21 01/14/22 History pen injector (Jaime Nicholson) famotidine 40 mg tablet 40 mg PO DAILY 08/10/21 01/14/22 History fexofenadine 180 mg tablet 180 mg PO DAILY PRN 08/10/21 01/14/22 History hydrocortisone-acetic acid 1 %-2 % 3 drp OTIC (EAR) BID PRN 08/10/21 01/14/22 History ear drops lorazepam 0.5 mg tablet 0.5 mg PO Q6H PRN 08/10/21 01/14/22 History clopidogrel 75 mg tablet 75 mg PO QAM #30 tab 08/11/21 01/14/22 Rx bempedoic acid 180 mg tablet 180 mg PO DAILY 01/14/22 01/14/22 History (Nexletol) coenzyme Q10 100 mg capsule 100 mg PO DAILY 01/14/22 01/14/22 History (CoQ-10) pantoprazole 20 mg tablet,delayed 20 mg PO DAILY 01/14/22 01/14/22 History release Past Med/Surg History Medical History Atherosclerosis of coronary artery CAD (coronary artery disease) History of TIA (transient ischemic attack) HLD (hyperlipidemia) Hypertension Macular degeneration MELAS (mitochondrial encephalopathy, lactic acidosis and stroke-like episodes) Mnire's disease Schatzki's ring Statin intolerance Type 1 diabetes mellitus Surgical History History of cholecystectomy History of cochlear implant Left in 2014 History of colonoscopy with polypectomy History of heart artery stent History of hysterectomy History of left heart catheterization 07/2019 which revealed 30% proximal LAD otherwise clean coronaries Family History Mother Coronary heart disease, Onset Age: 70 Father Coronary heart disease, Onset Age: 50 Social History Smoking Status: Never smoker Second Hand Exposure: No; Hx Alcohol Use: No Hx Substance Use: No Preferred Language: Urdu Communication Ability: Effective Hearing Ability: Cochlear Implant Wildlife Policy Professional Required: No Beliefs That Will Affect Care: None marital status: Current Living Situation: Family Current Living Situation Comment: son lives with her in her house current occupational status: disabled How many Children do You have: 2 Feels Safe at Home: Yes Assistive Devices: Hearing Aid - Left Review of Systems Review of Systems: All systems reviewed & are unremarkable except as noted in HPI & below Physical Exam Physical Exam: General: no distress, WDWN Head: normocephalic, atraumatic Eyes: PERRL, EOM's intact, conjunctiva non-injected, anicteric ENT: heard of hearing, +cochlear implant, normal inspection external ears, nose, mucous membranes moist Neck: supple, trachea midline Lungs: clear, no respiratory distress, no wheezing/rhonchi/rales CV: RRR, no murmur, no pretibial edema, +tenderness to palpation left anterior chest, no skin discoloration Abd: normal BS, soft, non-tender Ext: no cyanosis, no calf tenderness Neuro: A&O x 3, no focal deficits noted, normal affect Skin: warm, dry Results & Data Results & Data ([facility]) Vital Signs (Past 12 Hours) Vital Signs Temp Pulse Pulse Resp BP BP Pulse Ox 01/14/22 18:42 101 H 16 135/76 97 02/20/22 17:53 120 H 22 162/89 H 93 01/14/22 17:07 98 H 16 136/77 97 01/14/22 16:32 36.8 C 111 H 20 169/89 H 97 01/14/22 16:30 110 H 22 99 Laboratory Results Short CBC 01/14/22 Range/Units 16:31 WBC 9.89 (4.8-10.8) K/uL Hgb 12.0 (12.0-16.0) g/dL Hct 35.5 L (37-47) % Plt Count 310 (130-400) K/uL BMP 01/14/22 16:31 Sodium 136 Potassium 3.8 Chloride 100 Carbon Dioxide 25 BUN 17 Creatinine 0.70 Glucose 236 H Calcium 9.0 Cardiac Enzymes 01/14/22 Range/Units 16:31 Troponin I 0.03 (0-0.04) ng/ml Liver Function 01/14/22 Range/Units 16:31 Total Bilirubin 0.4 (0.2-1.0) mg/dl AST 18 (13-39) U/L ALT 11 (7-52) U/L Alkaline Phosphatase 68 (34-104) U/L Albumin 4.3 (3.4-5.0) gm/dl Diagnostic Findings Chest X-Ray 01/14/22 16:28 XR chest 1V portable HISTORY: 66 years-old Female Chest Pain acute atypical chest pain with headache COMPARISON: None TECHNIQUE: Portable AP view of the chest FINDINGS: The cardiomediastinal and hilar silhouettes are within normal limits. Calcified plaque of the thoracic aorta. No pneumothorax, pleural effusion, airspace consolidation or overt pulmonary edema. The bones appear grossly intact. IMPRESSION: No acute process. ACT 112: Negative or not required by law. The above report was generated using voice recognition software. It may contain grammatical, syntax or spelling errors. Electronically signed by: Pk Holt M.D. 01/14/2022 4:51 PM Chest CTA 01/14/22 17:01 CT angio chest PE protocol CT DOSE: 229.46 mGy.cm HISTORY: 66 years-old Female with cp eval for PE. Acute atypical chest pain with shortness of breath TECHNIQUE: Multiple CTA images of the chest were obtained after the intravenous administration of 120 ml Optiray. Coronal and sagittal MIPS were obtained from the axial data set and were submitted for review. All measurements were obtained according to NASCET criteria. A dose lowering technique was utilized adhering to the principles of ALARA. COMPARISON: Chest radiograph of same day, CTA chest 05/14/2020, chest CT 08/31/2016. FINDINGS: CTA: The heart is normal in size. Moderate coronary artery calcifications. Mild atherosclerosis of the thoracic aorta without aneurysm or dissection. There is patency of the imaged great vessels. Unremarkable pulmonary artery. No pulmonary emboli identified. CT CHEST: No thyroid nodule or adenopathy. No pneumothorax, pleural effusion or overt pulmonary edema. Stable clustered solid pulmonary nodules of the lingula measure up to 5 mm. There is mild mucous plugging with bronchiectasis within the inferior segment lingula, progressively worsened from 2016. 4 mm solid nodule of the lateral basal segment left lower lobe on image 67 series 4 is unchanged from 2016 and likely benign. Mild clustered tree-in-bud nodules are noted within the right middle and lower lobes, also stable. Central airways are patent. Mild nonspecific distal esophageal wall thickening. Unremarkable soft tissues. No acute fracture or suspicious bone lesion. IMPRESSION: 1. No pulmonary emboli. 2. Mild bronchiectasis with mucous plugging of the lingula. Mild chronic scattered bibasilar tree-in-bud nodules are compatible with an infectious or inflammatory bronchiolitis. Nontuberculous mycobacterium is a differential consideration. 3. No adenopathy or pleural effusion. 4. Moderate coronary artery calcifications. ACT 112: Negative or not required by law. The above report was generated using voice recognition software. It may contain grammatical, syntax or spelling errors. Electronically signed by: Pk Holt M.D. 01/14/2022 6:02 PM Supervising Physician Co-Signing Physician Notes Care coordinated with Chel Coyle PA-C. Agree with able note. Patient seen and examined. Please refer to her notes for full details. Vital signs reviewed. Physical exam: General exam: Alert and oriented. Not in acute distress. CVS: S1 and S2 heard, regular rate and rhythm, no murmurs. RS: Clear to auscultation, no wheezing or crackles. ABD: Soft, bowel sounds present, nontender, no distention. GLOBAL COMMODITY MANAGER: Nonfocal. EXT: No edema, no erythema. Labs: Reviewed. Assessment and plan: 66F presents with chest pain and headache. Currently sleeping and pain resolved denies any other complaints. Chest pain rule out acs serial ce, echo and cardio consult. Lung lesions await pulmonary inputs Other diagnosis and plan of care as per Chel Coyle PA-C.. José Luis ingram MD. (1) Chest pain Chest pain type: unspecified Qualified Code(s): R07.9 - Chest pain, unspecified
[2022-01-14] MEDS ORDERED: METOPROLOL TARTRATE 25 MG TAB PO STA (20:18)
[2022-01-14] MEDS ORDERED: CLOPIDOGREL BISULFATE 75 MG TAB PO ONE (20:20)
[2022-01-14] MEDS ORDERED: LORazepam 0.5 MG TAB PO PRN (21:53)
[2022-01-14] MEDS ORDERED: CARBOHYDRATES FOR HYPOGLYCEMIA PO PRN (21:53)
[2022-01-14] MEDS ORDERED: GLUCOSE 40% GEL 15 GM TUBE PO PRN (21:53)
[2022-01-14] MEDS ORDERED: DEXTROSE 50% 50 ML SYRINGE IV PRN (21:53)
[2022-01-14] MEDS ORDERED: ACETAMINOPHEN 325 MG TAB PO PRN (21:53)
[2022-01-14] MEDS ORDERED: GLUCOSE 10 TABS/TUBE PO PRN (21:53)
[2022-01-14] MEDS ORDERED: GLUCAGON FOR INJ 1 MG VIAL SQ PRN (21:53)
[2022-01-14] MEDS ORDERED: NITROGLYCERIN SL 0.4 MG/TAB TAB SL PRN (21:53)
[2022-01-15 07:45] LABS: Hematocrit (blood only) 35.5 % (37-47); Hemoglobin 11.9 g/dL (12.0-16.0); Mean Corpuscular Hemoglobin 29.4 pg (25-34); Mean Corpuscular Hgb Conc 33.5 g/dL (32-36); Mean Corpuscular Volume 87.7 fL (80-100); Mean Platelet Volume 10.8 fL (7.4-10.4); Platelet Count 295 K/uL (130-400); RDW Coefficient of Variation 13.3 % (11.5-14.5); RDW Standard Deviation 42.5 fL (36.4-46.3); Red Blood Count 4.05 M/uL (4.2-5.4)
[2022-01-15 08:09] LABS: BUN Creatinine Ratio 21.9 (10-20); Calcium 8.8 mg/dl (8.5-10.1); Chol HDL Ratio 2.8 (0-5); Creatinine Clr Calc Pharmacy 73.5 ml/min; Est GFR (African American) 108.5 ml/min; Est GFR (Non-African American) 93.6 ml/min; Potassium 4.4 mmol/L (3.5-5.1)
[2022-01-15 08:10] LABS: Troponin I 0.05 ng/ml (0-0.04)
[2022-01-15] MEDS: INSULIN ASPART PER UNIT SC SCH ×2 (08:48→12:31)
[2022-01-15] MEDS ORDERED: METOPROLOL TARTRATE 25 MG TAB PO SCH (09:00)
[2022-01-15] MEDS ORDERED: amLODIPine BESYLATE 5 MG TAB PO SCH (09:00)
[2022-01-15] MEDS ORDERED: FAMOTIDINE 40 MG TABLET PO SCH (09:00)
[2022-01-15] MEDS ORDERED: CLOPIDOGREL BISULFATE 75 MG TAB PO SCH (09:00)
[2022-01-15] MEDS ORDERED: HEPARIN SOD 5,000 UNIT/0.5 ML VIAL SQ SCH (09:00)
[2022-01-15] MEDS ORDERED: PANTOprazole 40 MG TAB PO SCH (09:00)
[2022-01-15] MEDS ORDERED: ASPIRIN 81 MG ECTAB PO SCH (09:00)
[2022-01-15 09:37] LABS: Estimated Average Glucose 186 mg/dl; Hemoglobin A1C 8.1 % (4.5-5.6)
--- NOTE | 2022-01-15 09:54 | Cardiology Consultation ---
Date of Consultation January 15, 2022 Assessment & Plan (1) Chest pain: (2) Tachycardia: (3) CAD (coronary artery disease): (4) Abnormal CT scan of [age]-year-old female presents with an episode of chest discomfort. Serum troponin minimally elevated in the setting of sinus tachycardia and known branch vessel coronary artery occlusion. I suspect a minimal troponin elevation secondary to demand ischemia in the setting of tachycardia rather than plaque rupture event. Her CTA of the chest negative for pulmonary embolus. Evidence of bronchiolitis noted. Consider pulmonary evaluation. Preliminary review of bedside 2D transthoracic echocardiogram reveals normal wall motion, no significant valvular pathology. There is a trivial anterior loculated pericardial effusion. There is no ECG evidence of pericarditis. She is currently pain-free. Recommend continued conservative management consider outpatient Lexiscan nuclear stress testing for further risk ratification. History of Present Illness Reason for Consultation: chest pain Requesting Physician: Dr. Erickson Attending Physician: Ankita Marrero MD History of Present Illness 66-year-old patient presented to the emergency department with chest discomfort. Unfortunately, patient's daughter last week. She was attending her over the weekend. After the she noted severe substernal chest discomfort without associated shortness of breath. Due to the symptoms patient came to the emergency department for further evaluation and treatment. Currently pain-free. Admission ECG unremarkable. Troponin minimally elevated. Sinus tachycardia noted on admission due to stress and noncompliance with beta- rebecca therapy. Complex cardiac problem list noted below. CT of the chest performed on admission negative for pulmonary embolus, however, mild bronchiectasis with mucous plugging of the lingula noted. There are also mild chronic scattered bibasilar tree-in-bud nodules compatible with infectious or inflammatory bronchiolitis. Cardiac Problem List: 1. Coronary heart disease, non STEMI, prompting cardiac catheterization, drug- eluting stent to the proximal LAD, [facility], 05/16/2020, subtotal occlusion of the RPDA branch of the distal right coronary artery supplied with ewuo-nh-dttor collaterals, treated medically, not amenable to revascularization 2. Intolerance of Brilinta prompting transition to clopidogrel 3. Recurrent angina prompting nuclear stress test November,, with abnormal EKG response, symptoms of angina reproduced 4. Repeat cardiac catheterization, [facility], 12/12/2020 with findings of patent LAD stent, distal RPDA stenosis once again observed with vwsq-lx-wrtdu collaterals unchanged 5. MELAS syndrome, (myopathy, encephalopathy, lactic acidosis and stroke) therefore not statin candidate 6. EGD , 2015, Mild Schatzki ring. Dilated Allergies Allergy/AdvReac Type Severity Reaction Status Date / Time atorvastatin AdvReac Intermediate myalgias, Verified 01/14/22 17:13 dysarthria prednisone AdvReac Intermediate metabolic-h Verified 01/14/22 17:13 yperglycemi a Home Medications Medication Instructions Recorded Confirmed Type insulin aspart U-100 100 unit/mL 2 - 4 unit SUBCUT TIDM 05/14/20 01/14/22 History (3 mL) subcutaneous pen (Novolog Flexpen U-100 Insulin aspart) insulin glargine 100 unit/mL (3 30 unit SUBCUT PM 05/14/20 01/14/22 History mL) subcutaneous pen (Lantus Solostar U-100 Insulin) vit A 12,500 unit-zinc 12.5 1 cap PO QAM 05/14/20 01/14/22 History od-mskkhi-zcmzl-bilberry-herb #261 capsule (Lipotriad Vision Support) aspirin 81 mg tablet,delayed 81 mg PO QAM #90 tab 05/17/20 01/14/22 Rx release metoprolol tartrate 25 mg tablet 25 mg PO BID #60 tab 05/17/20 01/14/22 Rx nitroglycerin 0.4 mg sublingual 0.4 mg SUBLINGUAL UD PRN #30 tab 05/17/20 01/14/22 Rx tablet (Nitrostat) amlodipine 2.5 mg tablet 2.5 mg PO DAILY 08/10/21 01/14/22 History evolocumab 140 mg/mL subcutaneous 140 mg SUBCUT .[id number] 08/10/21 01/14/22 History pen injector (Repatha SureClick) famotidine 40 mg tablet 40 mg PO DAILY 08/10/21 01/14/22 History fexofenadine 180 mg tablet 180 mg PO DAILY PRN 08/10/21 01/14/22 History hydrocortisone-acetic acid 1 %-2 % 3 drp OTIC (EAR) BID PRN 08/10/21 01/14/22 History ear drops lorazepam 0.5 mg tablet 0.5 mg PO Q6H PRN 08/10/21 01/14/22 History clopidogrel 75 mg tablet 75 mg PO QAM #30 tab 08/11/21 01/14/22 Rx bempedoic acid 180 mg tablet 180 mg PO DAILY 01/14/22 01/14/22 History (Nexletol) coenzyme Q10 100 mg capsule 100 mg PO DAILY 01/14/22 01/14/22 History (CoQ-10) pantoprazole 20 mg tablet,delayed 20 mg PO DAILY 01/14/22 01/14/22 History release Patient History Medical History Atherosclerosis of coronary artery CAD (coronary artery disease) History of TIA (transient ischemic attack) HLD (hyperlipidemia) Hypertension Macular degeneration MELAS (mitochondrial encephalopathy, lactic acidosis and stroke-like episodes) Mnire's disease Schatzki's ring Statin intolerance Type 1 diabetes mellitus Surgical History History of cholecystectomy History of cochlear implant Left in 2014 History of colonoscopy with polypectomy History of heart artery stent History of hysterectomy History of left heart catheterization 07/2019 which revealed 30% proximal LAD otherwise clean coronaries Family History Mother Coronary heart disease, Onset Age: 70 Father Coronary heart disease, Onset Age: 50 Social History Smoking Status: Never smoker Second Hand Exposure: No; Hx Alcohol Use: No Hx Substance Use: No Preferred Language: Finnish Communication Ability: Effective Hearing Ability: Cochlear Implant Driver Manager Required: No Beliefs That Will Affect Care: None marital status: Current Living Situation: Family Current Living Situation Comment: son lives with her in her house current occupational status: disabled How many Children do You have: 2 Feels Safe at Home: Yes Assistive Devices: Hearing Aid - Left Review of Systems Review of Systems: All systems reviewed & are unremarkable except as noted in Subjective Physical Exam Constitutional: well developed and well nourished; no acute distress Respiratory: no respiratory distress, no labored breathing, no retractions and does not use accessory muscles Auscultation: + crackles (Bases bilateral); no rales, no rhonchi and no wheezes Cardiovascular: Rate/Rhythm: regular rate and regular rhythm Heart Sounds: normal S1 and normal S2; no murmur Vessels: radial pulses present; no JVD and no carotid bruit Extremities: no edema Gastrointestinal (Abdomen): Inspection/Auscultation: abdomen normal to inspection and normal bowel sounds; abdomen not distended Percussion/Palpation: abdomen soft; abdomen nontender, no guarding and abdomen not rigid Psychiatric: Orientation: alert and oriented x 3 Affect: + depressed affect Results & Data ([facility]) Vital Signs (Past 12 Hours) Vital Signs Temp Pulse Pulse Resp BP Pulse Ox Pulse Ox 01/15/22 07:33 36.7 C 86 18 133/73 97 01/15/22 07:00 84 01/15/22 03:14 36.6 C 83 18 116/72 97 01/14/22 23:14 36.8 C 92 H 100 H 18 119/78 99 99 (1) Chest pain Chest pain type: unspecified Qualified Code(s): R07.9 - Chest pain, unspecified
--- NOTE | 2022-01-15 10:26 | Electrocardiogram Report ---
Test Reason : Blood Pressure : / mmHG Vent. Rate : 119 BPM Atrial Rate : 119 BPM P-R Int : 122 ms QRS Dur : 082 ms QT Int : 320 ms P-R-T Axes : 064 -48 140 degrees QTc Int : 450 ms Poor data quality, interpretation may be adversely affected Sinus tachycardia Left axis deviation Poor R wave progression, consider anterior ID vs. lead placement vs. LVH Nonspecific ST abnormality Possible Lateral infarct , age undetermined Abnormal ECG When compared with ECG of 10-AUG-2021 17:49, Borderline criteria for Lateral infarct are now Present Confirmed by Marin Bradley ([id number]) on 01/15/2022 10:25:53 AM Referred By: REFERRED SELF Confirmed By:James Bradley
--- NOTE | 2022-01-15 10:28 | Electrocardiogram Report ---
Test Reason : Blood Pressure : / mmHG Vent. Rate : 142 BPM Atrial Rate : 142 BPM P-R Int : 130 ms QRS Dur : 080 ms QT Int : 302 ms P-R-T Axes : 064 -45 116 degrees QTc Int : 464 ms Poor data quality, interpretation may be adversely affected Sinus tachycardia Left axis deviation Poor R wave progression, consider anterior NE vs. lead placement vs. LVH Abnormal ECG When compared with ECG of 14-JAN-2022 16:26, (unconfirmed) No significant change was found Confirmed by Marin Bradley ([id number]) on 01/15/2022 10:27:59 AM Referred By: REFERRED SELF Confirmed By:James Bradley
--- NOTE | 2022-01-15 10:32 | Electrocardiogram Report ---
Test Reason : Blood Pressure : / mmHG Vent. Rate : 096 BPM Atrial Rate : 096 BPM P-R Int : 114 ms QRS Dur : 082 ms QT Int : 362 ms P-R-T Axes : 067 -45 129 degrees QTc Int : 457 ms Normal sinus rhythm Left axis deviation Poor R wave progression, consider anterior OH vs. lead placement vs. LVH Abnormal ECG When compared with ECG of 10-AUG-2021 17:49, No significant change was found Confirmed by Marin Bradley ([id number]) on 01/15/2022 10:32:16 AM Referred By: REFERRED SELF Confirmed By:James Bradley
--- NOTE | 2022-01-15 11:08 | Discharge Summary ---
Date of Service January 15, 2022 Admission HPI Per Admitting Provider Patient is 66 y/o F with PMH CAD, NSTEMI, VÍCTOR TO LAD 2019, DM I, HTN, dyslipidemia, MELAS (mitochondrial encephalopathy, lactic acidosis, stroke), GERD, Schatzki ring scented to ER with complaint of chest pain. Patient states today went to [facility], went out to eat for lunch and drove home and when she was in her driveway developed Left chest pain around left breast that radiated to left shoulder and to left arm. Reports nausea and felt short of breath. Took 4 SL nitro "one right after the other" this afternoon without relief. Called EMS and reports was given four 81mg aspirin that seemed to help pain. Upon ER arrival reports onset of pain again and was given fentanyl with resolution of pain. No further SOB. Reports buried her daughter yesterday and is under a lot of stress. Did not have any medications today. After nitro reports some GRIMES. Denies fever/chills, diaphoresis, N/V/D/C, dizziness, syncope, vision changes, neck pain,orthopnea, palpitations, cough, sore throat, choking, otalgia, rhinorrhea, abdominal pain, paresthesias, extremity weakness, extremity edema, rashes, urinary symptoms. Patient with history cardiac cath at [facility] 05/16/2020: VÍCTOR to proximal LAD, subtotal occlusion of RPDA branch of the distal right coronary artery supplied with [id number] collaterals, treated medically, not amendable to revascularization. Had recurrent angina which prompted a nuclear stress test in 11/2020 that was abnormal. Repeat cardiac cath at [facility] 12/12/2020: Patent LAD stent, distal RPDA stenosis again observed with [id number] collaterals unchanged Admission Exam Per Admitting Provider General: no distress, WDWN Head: normocephalic, atraumatic Eyes: PERRL, EOM's intact, conjunctiva non-injected, anicteric ENT: heard of hearing, +cochlear implant, normal inspection external ears, nose, mucous membranes moist Neck: supple, trachea midline Lungs: clear, no respiratory distress, no wheezing/rhonchi/rales CV: RRR, no murmur, no pretibial edema, +tenderness to palpation left anterior chest, no skin discoloration Abd: normal BS, soft, non-tender Ext: no cyanosis, no calf tenderness Neuro: A&O x 3, no focal deficits noted, normal affect Skin: warm, dry Principal Diagnosis Chest Pain Discharge Exam Constitutional + well hydrated; no acute distress Eyes PERRL, conjunctivae normal, anicteric sclerae ENMT external ear and nose normal, oropharynx normal Respiratory normal respiratory effort, lungs clear to auscultation Cardiovascular RRR, no murmur, no edema Gastrointestinal (Abdomen) normal bowel sounds, soft, nontender, no hepatosplenomegaly Musculoskeletal no cyanosis or clubbing, extremities motor strength 5/5 Neurologic PERRL, EOMI, accommodation nl, no face palsy, no dysarthria Psychiatric A+Ox3, euthymic affect Discharge Data Allergies Allergy/AdvReac Type Severity Reaction Status Date / Time atorvastatin AdvReac Intermediate myalgias, Verified 01/14/22 17:13 dysarthria prednisone AdvReac Intermediate metabolic-h Verified 01/14/22 17:13 yperglycemi a Consultations 01/14/22 18:16 ED Decision to Admit Stat 01/15/22 08:00 Consult Cardiology Routine Consult Cardiology Routine Ordered Studies 01/14/22 17:01 CT angio chest PE protocol Stat Hospital Course (1) Chest pain: (2) Tachycardia: (3) Abnormal CT scan of lung: (4) CAD (coronary artery disease): Patient presented with chest pain referred to left arm yesterday that has resolved Patient has recently buried her daughter over the weekend and grieving. Troponin trend was minimally elevated (0.06--0.05) EKG was unremarkable Echocardiogram EF 55-60%, borderline concentric LVH, G1 DD, mild MR/TR Chest xray did not show any acute findings CT PE did not show PE but reported Mild bronchiectasis with mucous plugging of the lingula. Mild chronic scattered bibasilar tree-in-bud nodules are compatible with an infectious or inflammatory bronchiolitis. However, patient denied any respiratory symptoms to me. Denied cough, chest pain, shortness of breath, sore throat, congestion. Counselled patient to follow up with PCP especially if she develops any respiratory symptoms. Patient to follow up with Cardiology outpatient who may get a stress test. Continue home aspirin and plavix Not a statin candidate due to MELAS Total Time Total Time Spent Total Time Spent (In Minutes): 35 Total Time Includes: Examination of the Patient, Discharge Planning, Medication Reconciliation and Communication With Other Providers Discharge Plan Discharge Items Patient Disposition: Home - Self-Care Reason For Visit: Chest pain Discharge Diagnosis: Chest Pain Activity: Resume your previous activity Non-emergency contact: Primary Care Provider and Lead Care Manager Call non-emergency contact if: you have any medication questions and your symptoms worsen Follow-up/Referrals: Amairani Boyd MD [Primary Care Provider] - (Date & Time 01/19/2022 12:20 PM Provider Leeanne Maher PA-C Department Family Medicine [facility] ) Diet: Carb Consistent or DM2 and Heart Healthy Addtl Attending Provider Instructions: Mrs Chavez. You came to the hospital complaining of chest pain that has resolved You were evaluated. Your CT chest did not show blood clot but showed some inflammatory changes. Your COVID test was negative. You did not have any respiratory symptoms. You were evaluated by Lead Care Manager and had an echocardiogram. Please continue your medications and follow up with your Lead Care Manager who may do a stress test outpatient. Please ensure follow up with your Primary Doctor as well It was a pleasure taking care of you. Pending Studies at Discharge: No Stand-Alone Forms: My [employer], Smoking Cessation Medications and DC Order Prescriptions: Continued insulin aspart U-100 [Novolog Flexpen U-100 Insulin] 100 unit/mL (3 mL) insulin pen 2 - 4 unit SUBCUT TIDM RF: 0 Lantus Solostar U-100 Insulin 100 unit/mL (3 mL) Insulin Pen 30 unit SUBCUT PM RF: 0 Lipotriad Vision Support 12,500 unit- 12.5 mg Capsule 1 cap PO QAM RF: 0 metoprolol tartrate 25 mg Tablet 25 mg PO BID Qty: 60 RF: 2 nitroglycerin [Nitrostat] 0.4 mg Tablet, Sublingual 0.4 mg sublingual UD PRN (Reason: chest pain) Qty: 30 RF: 1 aspirin 81 mg Tablet,Delayed Release (Dr/Ec) 81 mg PO QAM Qty: 90 RF: 1 famotidine 40 mg tablet 40 mg PO DAILY RF: 0 amlodipine 2.5 mg tablet 2.5 mg PO DAILY RF: 0 fexofenadine 180 mg Tablet 180 mg PO DAILY PRN (Reason: SEASONAL ALLERGIES) RF: 0 lorazepam 0.5 mg tablet 0.5 mg PO Q6H PRN (Reason: Anxiety) RF: 0 hydrocortisone-acetic acid 1-2 % Drops 3 drp OTIC (EAR) BID PRN (Reason: ITCHY EARS) RF: 0 Repatha SureClick 140 mg/mL pen injector 140 mg SUBCUT .[id number] RF: 0 clopidogrel 75 mg Tablet 75 mg PO QAM Qty: 30 RF: 0 pantoprazole 20 mg Tablet,Delayed Release (Dr/Ec) 20 mg PO DAILY RF: 0 coenzyme Q10 [CoQ-10] 100 mg Capsule 100 mg PO DAILY RF: 0 Nexletol 180 mg Tablet 180 mg PO DAILY RF: 0 Discharge Orders: Discharge Order (Routine); Ordered 01/15/22 Ordered By: Ankita Marrero Admission Data Admit Date/Time: 01/14/22 19:58 Attending Provider: Ankita Marrero I. Admit Provider: José Luis Erickson Primary Care Provider: Amairani Boyd Other Providers: Rajinder Sampson Thanh-Thi ; José Luis Erickson Other Interventions: Discharge Summary Assessment (RN) Last Done: 01/15/22 14:13
[2022-01-15] MEDS ORDERED: INSULIN GLARGINE SOLOSTAR 100 UNITS/ML 3 ML PEN SQ SCH (21:00)
== END 2022-01-15 15:40 | disposition home or self-care (01) ==
LOC: EDBD → 2N 16:18 → MERGE 16:18 → ED 16:18 → SUATTDRO 19:58 → 2N 21:29

== ENCOUNTER 2022-01-19 13:18 | Inpatient (IN) ==
--- NOTE | 2022-01-19 14:49 | Emergency Department Note ---
Impression & Plan Confusion ADMIT ED Provider Note HPI: The patient is a 66-year-old female with history of coronary artery disease, presents the emergency department today with her family member at the bedside over concern for altered mental status over the past 5 to 6 days that acutely worsened yesterday. Patient is reportedly been more confused, she has had delayed response to questions, she is unsure of the year, she has been having some difficulty doing things at home including using a checkbook and answering questions appropriately according to her son.On arrival to the ED the patient is hemodynamically stable, she is alert, Oriented to place and self, she is not oriented to time. Patient does not display any focal deficits on arrival but does have obvious confusion.She follows commands appropriately but has a delayed response to questioning. ROS: - Neuro: Confusion *10 point review systems was conducted and is otherwise negative unless stated above *Outpatient medications and allergy history reviewed PE: General: Alert, NAD HEENT: Normocephalic, atraumatic Eyes: Extraocular eye movement is intact, no scleral erythema Pulmonary: Clear to auscultation bilaterally, no wheezing Cardio: Regular rate and rhythm GI: Abdomen is soft, nontender : No suprapubic tenderness MSK: No evidence of trauma or malformation of the extremities, no edema Skin: No evidence of rash Neuro: Alert, no focal deficits, Equal bilateral registration scheduling specialist strength, symmetrical facial movements are appreciated, patient does not have any drift of the upper extremities or lower extremities with testing against gravity Psychiatric: Cooperative playground monitor: - An order was placed for continuous cardiac monitoring - Patient was noted to be in sinus rhythm with rate of 90 EKG: Rate: 112 Rhythm: Sinus tachycardia Intervals: Within normal limits Time: Fifteen fifty-five ST changes: No ST elevation NIH STROKE SCALE: 1A: Level of consciousness Alert; keenly responsive 0 1B: Ask month and age Both questions right 0 1C: 'Blink eyes' & 'squeeze hands' Performs both tasks 0 2: Horizontal extraocular movements Normal 0 3: Visual osorio No visual loss 0 4: Facial palsy Normal symmetry 0 5A: Left arm motor drift No drift for 10 seconds 0 5B: Right arm motor drift No drift for 10 seconds 0 6A: Left leg motor drift No drift for 5 seconds 0 6B: Right leg motor drift No drift for 5 seconds 0 7: Limb Ataxia No ataxia 0 8: Sensation Normal; no sensory loss 0 9: Language/aphasia Normal; no aphasia 0 10: Dysarthria Normal 0 11: Extinction/inattention No abnormality 0 TOTAL NIH SCORE = 0 Medical Decision Making: Patient presented to the emergency department with confusion, she presents from home, her family member had a concern about her behavior, she has been increasingly confused, not able to do simple things that she used to do such as use of checkbook.On arrival here to the ED she is slow to respond to questions but she is alert, she does not have any focal deficits, she is oriented to place and self but not time. She is unable to tell me what year it is. IV was established, lab work-up initiated, patient has a slightly elevated troponin at 0.05 however this does appear to be near her baseline, she did complain of an episode of chest pain while here in the ED, her EKG does show some T wave inversions in the lateral leads but these appear similar to previous EKG.CT imaging of the head shows an abnormality within the left temporal region, unclear whether or not this is truly an ischemic event, cannot obtain MRI i maging as the patient has a history of a cochlear implant. CT angiography was obtained that shows no evidence of large vessel occlusion. Patient was given an aspirin in the ED. I discussed the above findings with the on-call hospitalist midlevel provider for [facility],And the patient was admitted to a telemetry bed for further management and secondary stroke work-up. Diagnosis: 1. Altered mental status, confusion 2. Hypodensity on CT imaging without contrast of the head 3. Strokelike episode 4. Chest pain 5. History of coronary artery disease Disposition: Admission Juan Jose Chau DO Emergency Medicine Past Med/Surg History Medical History (Updated 01/19/22 @ 17:44 by Juan Jose Chau DO) Atherosclerosis of coronary artery CAD (coronary artery disease) History of TIA (transient ischemic attack) HLD (hyperlipidemia) Hypertension Macular degeneration MELAS (mitochondrial encephalopathy, lactic acidosis and stroke-like episodes) Mnire's disease Schatzki's ring Statin intolerance Type 1 diabetes mellitus Surgical History History of cholecystectomy History of cochlear implant Left in 2014 History of colonoscopy with polypectomy History of heart artery stent History of hysterectomy History of left heart catheterization 07/2019 which revealed 30% proximal LAD otherwise clean coronaries Family History Mother Coronary heart disease, Onset Age: 70 Father Coronary heart disease, Onset Age: 50 Social History Smoking Status: Never smoker Second Hand Exposure: No; Hx Alcohol Use: No Hx Substance Use: No Preferred Language: [place] Communication Ability: Effective Hearing Ability: Cochlear Implant Bad Credit Collector Required: No Beliefs That Will Affect Care: None marital status: Current Living Situation: Family Current Living Situation Comment: son lives with her in her house current occupational status: retired and disabled How many Children do You have: 2 Feels Safe at Home: Yes Assistive Devices: Hearing Aid - Bilateral Allergies Allergies Allergy/AdvReac Type Severity Reaction Status Date / Time atorvastatin AdvReac Intermediate myalgias, Verified 01/14/22 17:13 dysarthria prednisone AdvReac Intermediate metabolic-h Verified 01/14/22 17:13 yperglycemi a Home Meds Home Medications Medication Instructions Recorded Confirmed insulin aspart U-100 100 unit/mL 2 - 4 unit SUBCUT TIDM 05/14/20 01/19/22 (3 mL) subcutaneous pen (Novolog Flexpen U-100 Insulin aspart) insulin glargine 100 unit/mL (3 30 unit SUBCUT PM 05/14/20 01/19/22 mL) subcutaneous pen (Lantus Solostar U-100 Insulin) vit A 12,500 unit-zinc 12.5 1 cap PO QAM 05/14/20 01/19/22 hp-[id number]-gzytk-bilberry-herb #261 capsule (Lipotriad Vision Support) amlodipine 2.5 mg tablet 2.5 mg PO DAILY 08/10/21 01/19/22 evolocumab 140 mg/mL subcutaneous 140 mg SUBCUT .[id number] 08/10/21 01/19/22 pen injector (Jaime Nicholson) famotidine 40 mg tablet 40 mg PO DAILY 08/10/21 01/19/22 fexofenadine 180 mg tablet 180 mg PO DAILY PRN 08/10/21 01/19/22 hydrocortisone-acetic acid 1 %-2 % 3 drp OTIC (EAR) BID PRN 08/10/21 01/19/22 ear drops lorazepam 0.5 mg tablet 0.5 mg PO Q6H PRN 08/10/21 01/19/22 bempedoic acid 180 mg tablet 180 mg PO DAILY 01/14/22 01/19/22 (Nexletol) coenzyme Q10 100 mg capsule 100 mg PO DAILY 01/14/22 01/19/22 (CoQ-10) pantoprazole 20 mg tablet,delayed 20 mg PO DAILY 01/14/22 01/19/22 release Previous Rx's Medication Instructions Recorded aspirin 81 mg tablet,delayed 81 mg PO QAM #90 tab 05/17/20 release metoprolol tartrate 25 mg tablet 25 mg PO BID #60 tab 05/17/20 nitroglycerin 0.4 mg sublingual 0.4 mg SUBLINGUAL UD PRN #30 tab 05/17/20 tablet (Nitrostat) clopidogrel 75 mg tablet 75 mg PO QAM #30 tab 08/11/21 Results & Data (ED) Vital Signs Vital Signs - 24 hr 01/19/22 13:26 01/19/22 14:38 01/19/22 14:40 Temperature 36.6 C Temperature Source Temporal Artery Scan Pulse Rate 102 H 94 H 94 H Pulse Rate from SpO2 Sensor 96 H 95 H Respiratory Rate 18 26 H 23 Respiratory Effort / Characteristics Non-Labored Respiratory Depth Normal Blood Pressure 140/80 Blood Pressure Mean 100 Pulse Oximetry 97 98 97 Oxygen Delivery Method Room Air Sepsis Recent Fever Within 48 Hours No Sepsis New/Unexplained Change in Mental Status No Sepsis Action Taken by Nursing No Action Required 01/19/22 14:50 01/19/22 15:00 01/19/22 15:10 Temperature Temperature Source Pulse Rate 84 90 84 Pulse Rate from SpO2 Sensor 84 87 80 Respiratory Rate 25 H 23 19 Respiratory Effort / Characteristics Respiratory Depth Blood Pressure 139/81 Blood Pressure Mean 100 Pulse Oximetry 97 97 100 Oxygen Delivery Method Sepsis Recent Fever Within 48 Hours Sepsis New/Unexplained Change in Mental Status Sepsis Action Taken by Nursing 01/19/22 15:20 01/19/22 15:30 01/19/22 15:54 Temperature Temperature Source Pulse Rate 87 81 120 H Pulse Rate from SpO2 Sensor 88 83 Respiratory Rate 23 20 8 L Respiratory Effort / Characteristics Respiratory Depth Blood Pressure 147/81 H 150/89 H Blood Pressure Mean 103 109 Pulse Oximetry 99 98 Oxygen Delivery Method Sepsis Recent Fever Within 48 Hours Sepsis New/Unexplained Change in Mental Status Sepsis Action Taken by Nursing 01/19/22 16:00 01/19/22 16:10 01/19/22 16:20 Temperature Temperature Source Pulse Rate 99 H 93 H 90 Pulse Rate from SpO2 Sensor 100 H 93 H 90 Respiratory Rate 27 H 20 17 Respiratory Effort / Characteristics Respiratory Depth Blood Pressure 140/79 Blood Pressure Mean 99 Pulse Oximetry 99 97 99 Oxygen Delivery Method Sepsis Recent Fever Within 48 Hours Sepsis New/Unexplained Change in Mental Status Sepsis Action Taken by Nursing Laboratory Data Result diagrams: 01/19/22 14:20 01/19/22 14:20 Lab Results 01/19/22 01/19/22 01/19/22 Range/Units 14:20 14:20 15:18 WBC 9.95 (4.8-10.8) K/uL RBC 4.43 (4.2-5.4) M/uL Hgb 13.2 (12.0-16.0) g/dL Hct 38.6 (37-47) % MCV 87.1 (80-100) fL MCH 29.8 (25-34) pg MCHC 34.2 (32-36) g/dL RDW Std Deviation 42.0 (36.4-46.3) fL RDW Coeff of Marj 13.1 (11.5-14.5) % Plt Count 327 (130-400) K/uL MPV 10.7 H (7.4-10.4) fL Immature Gran % (Auto) 0.2 % Neut % (Auto) 62.1 % Lymph % (Auto) 28.4 % [place] % (Auto) 7.3 % Eos % (Auto) 1.5 % Baso % (Auto) 0.5 % Neut # (Auto) 6.17 (1.4-6.5) K/uL Lymph # (Auto) 2.83 (1.2-3.4) K/uL [place] # (Auto) 0.73 H (0.11-0.59) K/uL Eos # (Auto) 0.15 (0-0.5) K/uL Baso # (Auto) 0.05 (0-0.2) K/uL Immature Gran # (Auto) 0.02 (0.00-0.02) K/uL RBC Morphology Unremarkable PT (9.0-12.0) Seconds INR (0.9-1.1) APTT (21.0-31.0) Seconds PTT Ratio Sodium 136 (136-145) mmol/L Potassium 4.1 (3.5-5.1) mmol/L Chloride 101 (98-107) mmol/L Carbon Dioxide 25 (21-32) mmol/L Anion Gap 10 (3-11) BUN 21 (6-23) mg/dl Creatinine 0.64 (0.6-1.2) mg/dl Est Cr Clr Drug Dosing Not Reportable Est GFR ( Amer) 108.5 ml/min Est GFR (Non-Af Amer) 93.6 ml/min BUN/Creatinine Ratio 32.8 H (10-20) Glucose 115 H (70-99(Fasting)) mg/dl Calcium 9.3 (8.5-10.1) mg/dl Magnesium 1.8 (1.7-2.4) mg/dl Total Bilirubin 0.7 (0.2-1.0) mg/dl AST 21 (13-39) U/L ALT 14 (7-52) U/L Alkaline Phosphatase 67 (34-104) U/L Troponin I 0.05 H* (0-0.04) ng/ml Total Protein 7.9 (6.0-8.3) gm/dl Albumin 4.7 (3.4-5.0) gm/dl Globulin 3.2 (2.5-4.0) gm/dl Albumin/Globulin Ratio 1.5 (0.9-2) SARS-CoV-2, RNA, NAAT (NEGATIVE) Blood Type Antibody Screen 01/19/22 01/19/22 01/19/22 Range/Units 15:19 15:19 16:55 WBC (4.8-10.8) K/uL RBC (4.2-5.4) M/uL Hgb (12.0-16.0) g/dL Hct (37-47) % MCV (80-100) fL MCH (25-34) pg MCHC (32-36) g/dL RDW Std Deviation (36.4-46.3) fL RDW Coeff of Marj (11.5-14.5) % Plt Count (130-400) K/uL MPV (7.4-10.4) fL Immature Gran % (Auto) % Neut % (Auto) % Lymph % (Auto) % [place] % (Auto) % Eos % (Auto) % Baso % (Auto) % Neut # (Auto) (1.4-6.5) K/uL Lymph # (Auto) (1.2-3.4) K/uL [place] # (Auto) (0.11-0.59) K/uL Eos # (Auto) (0-0.5) K/uL Baso # (Auto) (0-0.2) K/uL Immature Gran # (Auto) (0.00-0.02) K/uL RBC Morphology PT 11.2 (9.0-12.0) Seconds INR 1.1 (0.9-1.1) APTT 28.2 (21.0-31.0) Seconds PTT Ratio 1.1 Sodium (136-145) mmol/L Potassium (3.5-5.1) mmol/L Chloride (98-107) mmol/L Carbon Dioxide (21-32) mmol/L Anion Gap (3-11) BUN (6-23) mg/dl Creatinine (0.6-1.2) mg/dl Est Cr Clr Drug Dosing Est GFR ( Amer) ml/min Est GFR (Non-Af Amer) ml/min BUN/Creatinine Ratio (10-20) Glucose (70-99(Fasting)) mg/dl Calcium (8.5-10.1) mg/dl Magnesium (1.7-2.4) mg/dl Total Bilirubin (0.2-1.0) mg/dl AST (13-39) U/L ALT (7-52) U/L Alkaline Phosphatase (34-104) U/L Troponin I (0-0.04) ng/ml Total Protein (6.0-8.3) gm/dl Albumin (3.4-5.0) gm/dl Globulin (2.5-4.0) gm/dl Albumin/Globulin Ratio (0.9-2) SARS-CoV-2, RNA, NAAT NEGATIVE (NEGATIVE) Blood Type O Positive Antibody Screen NEGATIVE Administered Medications Discontinued Medications Aspirin (Aspirin Chew 324 Mg) 324 mg PO NOW STA Stop: 01/19/22 16:41 Last Admin: 01/19/22 16:53 Dose: 324 mg Documented by: [id number] Aspirin (Aspirin 81 Mg Chew) Confirm Administered Dose 81 mg .ROUTE .STK-MED ONE Stop: 01/19/22 16:48 Last Admin: 01/19/22 16:53 Dose: Not Given Documented by: [id number] Ioversol (Optiray 320 125ml) 120 ml IV ONCE ONE Stop: 01/19/22 15:51 Last Admin: 01/19/22 15:50 Dose: 120 ml Documented by: [id number] Imaging Data Radiologist's Impression: Head CT 01/19/22 14:46 CT OF THE HEAD WITHOUT CONTRAST CLINICAL HISTORY: Stroke Like Symptoms. Confusion. COMPARISON STUDY: Head CT August 10, 2021. CT DOSE: 1111.73 mGy.cm TECHNIQUE: Helical axial images of the head were obtained without IV contrast. Automated exposure control was utilized for the study. A dose lowering technique was utilized adhering to the principles of ALARA. FINDINGS: Exam is compromised by streak artifact from a left cochlear implant. White matter hypodensities are unchanged and favor small vessel disease. There are bilateral basal ganglia calcifications. No acute intracranial hemorrhage, midline shift or mass effect is present. The ventricular system is unremarkable. Note is made of a 5.6 cm hypodensity within the left temporal lobe. The basal cisterns are patent. No extra-axial collections are present. No significant calvarial abnormalities are present. Left mastoid are cells are partially opacified, unchanged. IMPRESSION: 1. No acute intracranial hemorrhage. No mass effect. 2. 5.6 cm hypodensity within left temporal lobe. This could be artifactual given the adjacent cochlear implant. However, an acute posterior left MCA distribution infarct could appear similar. ACT 112: Negative or not required by law. Electronically signed by: Toby Caraballo M.D. 01/19/2022 4:05 PM Head CTA 01/19/22 14:46 HEAD AND NECK CTA HISTORY: Confusion. Stroke Like Symptoms TECHNIQUE: Multiaxial CT images of the head and neck were performed following the intravenous administration of contrast to evaluate the major cerebral vessels. Maximum intensity projection images were also obtained. A dose lowering technique was utilized adhering to the principles of ALARA. COMPARISON: Head CT 01/19/2022. Head and neck CTA 08/10/2021.. FINDINGS: Head CTA: Visualized intracranial distal vertebral arteries, and basilar artery are widely patent. 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 The major dural venous sinuses are patent. A left cochlear implant is again noted. Moderate right and mild left focal stenosis within the supraclinoid ICAs. This remains unchanged. Neck CTA: Mild calcified plaque within the right carotid bifurcation. No significant stenosis, occlusion, or dissection within the bilateral common carotid, internal carotid, or vertebral arteries. IMPRESSION: 1. No change compared to the prior study. 2. No significant stenosis, occlusion, or aneurysm within the bilateral ACAs, MCAs, meat process worker. 3. Moderate right and mild left focal stenosis within the supraclinoid ICAs. 4. No significant stenosis, occlusion, or dissection within the cervical carotid or vertebral arteries. ACT 112: Negative or not required by law. Electronically signed by: Caleb Pace M.D. 01/19/2022 4:08 PM Neck CTA 01/19/22 14:46 HEAD AND NECK CTA HISTORY: Confusion. Stroke Like Symptoms TECHNIQUE: Multiaxial CT images of the head and neck were performed following the intravenous administration of contrast to evaluate the major cerebral vessels. Maximum intensity projection images were also obtained. A dose lowering technique was utilized adhering to the principles of ALARA. COMPARISON: Head CT 01/19/2022. Head and neck CTA 08/10/2021.. FINDINGS: Head CTA: Visualized intracranial distal vertebral arteries, and basilar artery are widely patent. 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 The major dural venous sinuses are patent. A left cochlear implant is again noted. Moderate right and mild left focal stenosis within the supraclinoid ICAs. This remains unchanged. Neck CTA: Mild calcified plaque within the right carotid bifurcation. No significant stenosis, occlusion, or dissection within the bilateral common carotid, internal carotid, or vertebral arteries. IMPRESSION: 1. No change compared to the prior study. 2. No significant stenosis, occlusion, or aneurysm within the bilateral ACAs, MCAs, meat process worker. 3. Moderate right and mild left focal stenosis within the supraclinoid ICAs. 4. No significant stenosis, occlusion, or dissection within the cervical carotid or vertebral arteries. ACT 112: Negative or not required by law. Electronically signed by: Caleb Pace M.D. 01/19/2022 4:08 PM Discharge Plan Visit Data Chief Complaint: Illness Stated Complaint: CONFUSION, HEADACHE, DEHYDRATED, MEMORY LOSS ED Provider: Juan Jose Chau Discharge Problem: Confusion Forms Stand Alone Forms: My [facility] Prescriptions Prescriptions: No Action insulin aspart U-100 [Novolog Flexpen U-100 Insulin] 100 unit/mL (3 mL) ins ulin pen 2 - 4 unit SUBCUT TIDM RF: 0 Lantus Solostar U-100 Insulin 100 unit/mL (3 mL) Insulin Pen 30 unit SUBCUT PM RF: 0 Lipotriad Vision Support 12,500 unit- 12.5 mg Capsule 1 cap PO QAM RF: 0 metoprolol tartrate 25 mg Tablet 25 mg PO BID Qty: 60 RF: 2 nitroglycerin [Nitrostat] 0.4 mg Tablet, Sublingual 0.4 mg sublingual UD PRN (Reason: chest pain) Qty: 30 RF: 1 aspirin 81 mg Tablet,Delayed Release (Dr/Ec) 81 mg PO QAM Qty: 90 RF: 1 famotidine 40 mg tablet 40 mg PO DAILY RF: 0 amlodipine 2.5 mg tablet 2.5 mg PO DAILY RF: 0 fexofenadine 180 mg Tablet 180 mg PO DAILY PRN (Reason: SEASONAL ALLERGIES) RF: 0 lorazepam 0.5 mg tablet 0.5 mg PO Q6H PRN (Reason: Anxiety) RF: 0 hydrocortisone-acetic acid 1-2 % Drops 3 drp OTIC (EAR) BID PRN (Reason: ITCHY EARS) RF: 0 Repatha SureClick 140 mg/mL pen injector 140 mg SUBCUT .[id number] RF: 0 clopidogrel 75 mg Tablet 75 mg PO QAM Qty: 30 RF: 0 pantoprazole 20 mg Tablet,Delayed Release (Dr/Ec) 20 mg PO DAILY RF: 0 coenzyme Q10 [CoQ-10] 100 mg Capsule 100 mg PO DAILY RF: 0 Nexletol 180 mg Tablet 180 mg PO DAILY RF: 0 Referrals Referrals: Amairani Boyd MD [Primary Care Provider] -
[2022-01-19 14:53] LABS: Alanine Aminotransferase 14 U/L (7-52); Albumin Globulin Ratio 1.5 (0.9-2); Albumin Level 4.7 gm/dl (3.4-5.0); Alkaline Phosphatase 67 U/L (34-104); Anion Gap 10 (3-11); Aspartate Aminotransferase 21 U/L (13-39); BUN Creatinine Ratio 32.8 (10-20); Bilirubin,Total 0.7 mg/dl (0.2-1.0); Blood Urea Nitrogen 21 mg/dl (6-23); Calcium 9.3 mg/dl (8.5-10.1); Carbon Dioxide 25 mmol/L (21-32); Chloride 101 mmol/L (98-107); Est GFR (African American) 108.5 ml/min; Est GFR (Non-African American) 93.6 ml/min; Globulin 3.2 gm/dl (2.5-4.0); Glucose 115 mg/dl (70-99(Fasting)); Potassium 4.1 mmol/L (3.5-5.1); Sodium 136 mmol/L (136-145); Total Protein 7.9 gm/dl (6.0-8.3)
[2022-01-19 15:03] LABS: Hematocrit (blood only) 38.6 % (37-47); Hemoglobin 13.2 g/dL (12.0-16.0); Mean Corpuscular Hemoglobin 29.8 pg (25-34); Mean Corpuscular Hgb Conc 34.2 g/dL (32-36); Mean Corpuscular Volume 87.1 fL (80-100); Mean Platelet Volume 10.7 fL (7.4-10.4); Platelet Count 327 K/uL (130-400); RDW Coefficient of Variation 13.1 % (11.5-14.5); Red Blood Count 4.43 M/uL (4.2-5.4); White Blood Count 9.95 K/uL (4.8-10.8)
[2022-01-19 15:04] LABS: Basophils # (auto) 0.05 K/uL (0-0.2); Basophils % (auto) 0.5 %; Eosinophils # (auto) 0.15 K/uL (0-0.5); Eosinophils % (auto) 1.5 %; Immature Granulocytes # (auto) 0.02 K/uL (0.00-0.02); Immature Granulocytes % (auto) 0.2 %; Lymphocytes # (auto) 2.83 K/uL (1.2-3.4); Lymphocytes % (auto) 28.4 %; Monocytes # (auto) 0.73 K/uL (0.11-0.59); Monocytes % (auto) 7.3 %; Neutrophils # (auto) 6.17 K/uL (1.4-6.5); Neutrophils % (auto) 62.1 %; RBC Morphology Unremarkable
[2022-01-19 15:38] LABS: INR 1.1 (0.9-1.1); Partial Thromboplastin Ratio 1.1; Partial Thromboplastin Time 28.2 Seconds (21.0-31.0); Prothrombin Time 11.2 Seconds (9.0-12.0)
[2022-01-19] MEDS ORDERED: OPTIRAY 320 125ml IV ONE (15:50)
[2022-01-19 15:54] LABS: Troponin I 0.05 ng/ml (0-0.04)
[2022-01-19 16:04] LABS: Magnesium 1.8 mg/dl (1.7-2.4)
--- NOTE | 2022-01-19 16:07 | CT Scan Report ---
CT OF THE HEAD WITHOUT CONTRAST CLINICAL HISTORY: Stroke Like Symptoms. Confusion. COMPARISON STUDY: Head CT August 10, 2021. CT DOSE: 1111.73 mGy.cm TECHNIQUE: Helical axial images of the head were obtained without IV contrast. Automated exposure con trol was utilized for the study. A dose lowering technique was utilized adhering to the principles o f ALARA. FINDINGS: Exam is compromised by streak artifact from a left cochlear implant. White matter hypodensi ties are unchanged and favor small vessel disease. There are bilateral basal ganglia calcifications. No acute intracranial hemorrhage, midline shift or mass effect is present. The ventricular system is unremarkable. Note is made of a 5.6 cm hypodensity within the left temporal lobe. The basal cisterns are patent. No extra-axial collections are present. No significant calvarial abnormalities are presen t. Left mastoid are cells are partially opacified, unchanged. IMPRESSION: 1. No acute intracranial hemorrhage. No mass effect. 2. 5.6 cm hypodensity within left temporal lobe. This could be artifactual given the adjacent cochlea r implant. However, an acute posterior left MCA distribution infarct could appear similar. ACT 112: Negative or not required by law. Electronically signed by: Toby Caraballo M.D. 01/19/2022 4:05 PM
--- NOTE | 2022-01-19 16:09 | CT Scan Report ---
HEAD AND NECK CTA HISTORY: Confusion. Stroke Like Symptoms TECHNIQUE: Multiaxial CT images of the head and neck were performed following the intravenous adminis tration of contrast to evaluate the major cerebral vessels. Maximum intensity projection images were also obtained. A dose lowering technique was utilized adhering to the principles of ALARA. COMPARISON: Head CT 01/19/2022. Head and neck CTA 08/10/2021.. FINDINGS: Head CTA: Visualized intracranial distal vertebral arteries, and basilar artery are widely patent. 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 The major dural venous sinuses are patent. A left cochlear implant is again noted. Moderate right an d mild left focal stenosis within the supraclinoid ICAs. This remains unchanged. Neck CTA: Mild calcified plaque within the right carotid bifurcation. No significant stenosis, occlus ion, or dissection within the bilateral common carotid, internal carotid, or vertebral arteries. IMPRESSION: 1. No change compared to the prior study. 2. No significant stenosis, occlusion, or aneurysm within the bilateral ACAs, MCAs, brush fabrication supervisor. 3. Moderate right and mild left focal stenosis within the supraclinoid ICAs. 4. No significant stenosis, occlusion, or dissection within the cervical carotid or vertebral arterie s. ACT 112: Negative or not required by law. Electronically signed by: Caleb Pace M.D. 01/19/2022 4:08 PM
--- NOTE | 2022-01-19 16:09 | CT Scan Report ---
HEAD AND NECK CTA HISTORY: Confusion. Stroke Like Symptoms TECHNIQUE: Multiaxial CT images of the head and neck were performed following the intravenous adminis tration of contrast to evaluate the major cerebral vessels. Maximum intensity projection images were also obtained. A dose lowering technique was utilized adhering to the principles of ALARA. COMPARISON: Head CT 01/19/2022. Head and neck CTA 08/10/2021.. FINDINGS: Head CTA: Visualized intracranial distal vertebral arteries, and basilar artery are widely patent. Th ere is no significant stenosis, occlusion, or aneurysm seen within the bilateral ACAs, MCAs, or rag inspector. The major dural venous sinuses are patent. A left cochlear implant is again noted. Moderate right an d mild left focal stenosis within the supraclinoid ICAs. This remains unchanged. Neck CTA: Mild calcified plaque within the right carotid bifurcation. No significant stenosis, occlus ion, or dissection within the bilateral common carotid, internal carotid, or vertebral arteries. IMPRESSION: 1. No change compared to the prior study. 2. No significant stenosis, occlusion, or aneurysm within the bilateral ACAs, MCAs, rag inspector. 3. Moderate right and mild left focal stenosis within the supraclinoid ICAs. 4. No significant stenosis, occlusion, or dissection within the cervical carotid or vertebral arterie s. ACT 112: Negative or not required by law. Electronically signed by: Caleb Pace M.D. 01/19/2022 4:08 PM
[2022-01-19] MEDS ORDERED: ASPIRIN CHEW 324 MG PO STA (16:40)
[2022-01-19] MEDS ORDERED: ASPIRIN 81 MG CHEW ONE (16:47)
--- NOTE | 2022-01-19 17:28 | History & Physical Report ---
Date of Service January 19, 2022 Assessment & Plan (1) Altered mental status: Plan: R/O CVA Patient is 66 y/o F with PMH CAD, NSTEMI, VÍCTOR TO LAD 2019, DM, HTN, dyslipidemia, MELAS (mitochondrial encephalopathy, lactic acidosis, stroke), GERD, Schatzki ring presented to ER with complaint of GRIMES x 3 days and AMS. Today in ER vitals stable,no significant electrolyte abnormality CT Head: 1. No acute intracranial hemorrhage. No mass effect. 2. 5.6 cm hypodensity within left temporal lobe. This could be artifactual given the adjacent cochlear implant. However, an acute posterior left MCA distribution infarct could appear similar. CTA Head and neck: 1. No change compared to the prior study. 2. No significant stenosis, occlusion, or aneurysm within the bilateral ACAs, MCAs, bark grinder. 3. Moderate right and mild left focal stenosis within the supraclinoid ICAs. 4. No significant stenosis, occlusion, or dissection within the cervical carotid or vertebral arteries. Tele to monitor for arrhythmias UA pending Unable to obtain MRI secondary to cochlear implant aspiration precautions A1c: 8.1 on 01/15/22 Lipid panel unremarkable on 01/15/22 Continue aspirin, Plavix. Is not candidate for statin PT/OT consult Neurology consult MELAS (mitochondrial encephalopathy, lactic acidosis, stroke) Continue aspirin, Plavix CAD H/O history cardiac cath at [facility] 05/16/2020: VÍCTOR to proximal LAD, subtotal occlusion of RPDA branch of the distal right coronary artery supplied with [id number] collaterals, treated medically, not amendable to revascularization. Had recurrent angina which prompted a nuclear stress test in 11/2020 that was abnormal. Repeat cardiac cath at [facility] 12/12/2020: Patent LAD stent, distal RPDA stenosis again observed with [id number] collaterals unchanged Admission 01/15/22-01/16/22 for CP. At that time had troponin: 0.05 no acute EKG changes, was thought secondary to demand ischemia and tachycardia. Had CTA chest negative for PE. Suggested to have outpatient stress test. Denies current CP Repeat EKG in am Will trend troponin Echo Had lipid panel 01/15/22. Is not candidate for statin Continue aspirin, metoprolol tartrate, Plavix, Repatha, Nexletol DM I A1c: 8.1 on 01/15/22 Continue home Lantus NovoLog sliding scale per protocol HTN Continue amlodipine, metoprolol tartrate GERD Continue PPI DVT Prophylaxis SCDs Full code as per discussion with pt and pt's son Follows with Dr Jose Ramirez for routine care Pt was seen and care coordinated with Dr Erickson. See addendum History of Present Illness Chief Complaint: AMS Primary Care Provider: Amairani Ramirez MD Patient is 66 y/o F with PMH CAD, NSTEMI, VÍCTOR TO LAD 2019, DM, HTN, dyslipidemia, MELAS (mitochondrial encephalopathy, lactic acidosis, stroke), GERD, Schatzki ring presented to ER with complaint of GRIMES x 3 days and AMS. Limited history obtained from patient secondary to altered mental status. History assisted from patient's son. Patient with history of hospitalization 01/14/2022-01/15/2022 for chest pain and was discharged home with consideration of outpatient stress test. Patient son reports patient denied any headache upon discharge. He states 3 days ago patient was complaining of headache, the following day denied any headache. Yesterday reports onset of headache again and son had noted patient seemed confused, she was having trouble using and balancing her checkbook. He wanted to bring patient to ER last night however patient refused. Reports today patient woke up continue to complain of headache and she was increasingly confused and was brought to ER. Patient son does report patient under stress with recent of her daughter. Patient son states patient had reported some dizziness with ambulation to bathroom. He denies any known falls. He has been staying with patient since her last hospital discharge. Reports patient past couple days has been not wanting to eat and he has been encouraging her to eat and drink. Denies any known fever, chills. Son denies any noted vomiting, syncope. Patient has been reporting she has been feeling cold, which son reports is not abnormal for her. Unable to fully obtain ROS as patient does not understand the questions. When asked if she has any vision changes she reports "I do not know". Patient unsure if she has any paresthesias or extremity weakness however does report that she can stand. Patient with episode of altered mental status fall 2020 and was started on Plavix. Allergies Allergy/AdvReac Type Severity Reaction Status Date / Time atorvastatin AdvReac Intermediate myalgias, Verified 01/14/22 17:13 dysarthria prednisone AdvReac Intermediate metabolic-h Verified 01/14/22 17:13 yperglycemi a Home Medications Medication Instructions Recorded Confirmed Type insulin aspart U-100 100 unit/mL 2 - 4 unit SUBCUT TIDM 05/14/20 01/19/22 History (3 mL) subcutaneous pen (Novolog Flexpen U-100 Insulin aspart) insulin glargine 100 unit/mL (3 30 unit SUBCUT PM 05/14/20 01/19/22 History mL) subcutaneous pen (Lantus Solostar U-100 Insulin) vit A 12,500 unit-zinc 12.5 1 cap PO QAM 05/14/20 01/19/22 History ih-aclseb-birne-bilberry-herb #261 capsule (Lipot[employer] Support) aspirin 81 mg tablet,delayed 81 mg PO QAM #90 tab 05/17/20 01/19/22 Rx release metoprolol tartrate 25 mg tablet 25 mg PO BID #60 tab 05/17/20 01/19/22 Rx nitroglycerin 0.4 mg sublingual 0.4 mg SUBLINGUAL UD PRN #30 tab 05/17/20 01/19/22 Rx tablet (Nitrostat) amlodipine 2.5 mg tablet 2.5 mg PO DAILY 08/10/21 01/19/22 History evolocumab 140 mg/mL subcutaneous 140 mg SUBCUT .[id number] 08/10/21 01/19/22 History pen injector (athиван Nicholson) famotidine 40 mg tablet 40 mg PO DAILY 08/10/21 01/19/22 History fexofenadine 180 mg tablet 180 mg PO DAILY PRN 08/10/21 01/19/22 History hydrocortisone-acetic acid 1 %-2 % 3 drp OTIC (EAR) BID PRN 08/10/21 01/19/22 History ear drops lorazepam 0.5 mg tablet 0.5 mg PO Q6H PRN 08/10/21 01/19/22 History clopidogrel 75 mg tablet 75 mg PO QAM #30 tab 08/11/21 01/19/22 Rx bempedoic acid 180 mg tablet 180 mg PO DAILY 01/14/22 01/19/22 History (Nexletol) coenzyme Q10 100 mg capsule 100 mg PO DAILY 01/14/22 01/19/22 History (CoQ-10) pantoprazole 20 mg tablet,delayed 20 mg PO DAILY 01/14/22 01/19/22 History release Past Med/Surg History Medical History (Updated 01/19/22 @ 18:41 by Chel Coyle PA-C) Atherosclerosis of coronary artery CAD (coronary artery disease) History of TIA (transient ischemic attack) HLD (hyperlipidemia) Hypertension Macular degeneration MELAS (mitochondrial encephalopathy, lactic acidosis and stroke-like episodes) Mnire's disease Schatzki's ring Statin intolerance Type 1 diabetes mellitus Surgical History History of cholecystectomy History of cochlear implant Left in 2014 History of colonoscopy with polypectomy History of heart artery stent History of hysterectomy History of left heart catheterization 07/2019 which revealed 30% proximal LAD otherwise clean coronaries Family History Mother Coronary heart disease, Onset Age: 70 Father Coronary heart disease, Onset Age: 50 Social History Smoking Status: Never smoker Second Hand Exposure: No; Hx Alcohol Use: No Hx Substance Use: No Preferred Language: Lithuanian Communication Ability: Effective Hearing Ability: Cochlear Implant Career Counselor Required: No Beliefs That Will Affect Care: None marital status: Current Living Situation: Family Current Living Situation Comment: son lives with her in her house current occupational status: retired and disabled How many Children do You have: 2 Feels Safe at Home: Yes Assistive Devices: Hearing Aid - Bilateral Review of Systems Review of Systems: Unobtainable due to cognitive status Physical Exam Physical Exam: General: no acute distress, WDWN Head: normocephalic, atraumatic Eyes: PERRL, EOM's intact, conjunctiva non-injected, anicteric ENT:+hard of hearing, normal inspection external ears, nose, mucous membranes mildly dry Neck: supple, trachea midline Lungs: clear, no respiratory distress, no wheezing/rhonchi/rales CV: RRR, no murmur, no pretibial edema Abd: normal BS, soft, non-tender Ext: no cyanosis, no calf tenderness Neuro: Alert, knows her name, month and year and her son who accompanies her today. Does not know date. Knows at [facility]. Facial sensation is intact and symmetric, face is strong and symmetric, Soft palate elevates symmetrically, no dysarthria, Shoulder shrug intact, Tongue is midline, normal movement, no fasciculations, strong and equal bilateral ophthalmology technician strength, bilateral lower and upper extremities 5/5 strength. Skin: warm, dry Results & Data Results & Data ([facility]) Vital Signs (Past 12 Hours) Vital Signs Temp Pulse Resp BP Pulse Ox 01/19/22 16:20 90 17 99 01/19/22 16:10 93 H 20 97 01/19/22 16:00 99 H 27 H 140/79 99 01/19/22 15:54 120 H 8 L 150/89 H 01/19/22 15:30 81 20 147/81 H 98 01/19/22 15:20 87 23 99 01/19/22 15:10 84 19 100 01/19/22 15:00 90 23 139/81 97 01/19/22 14:50 84 25 H 97 01/19/22 14:40 94 H 23 97 01/19/22 14:38 94 H 26 H 98 01/19/22 13:26 36.6 C 102 H 18 140/80 97 Laboratory Results Short CBC 01/19/22 Range/Units 14:20 WBC 9.95 (4.8-10.8) K/uL Hgb 13.2 (12.0-16.0) g/dL Hct 38.6 (37-47) % Plt Count 327 (130-400) K/uL BMP 01/19/22 14:20 Sodium 136 Potassium 4.1 Chloride 101 Carbon Dioxide 25 BUN 21 Creatinine 0.64 Glucose 115 H Calcium 9.3 Cardiac Enzymes 01/19/22 Range/Units 15:18 Troponin I 0.05 H* (0-0.04) ng/ml Liver Function 01/19/22 Range/Units 14:20 Total Bilirubin 0.7 (0.2-1.0) mg/dl AST 21 (13-39) U/L ALT 14 (7-52) U/L Alkaline Phosphatase 67 (34-104) U/L Albumin 4.7 (3.4-5.0) gm/dl Diagnostic Findings Head CT 01/19/22 14:46 CT OF THE HEAD WITHOUT CONTRAST CLINICAL HISTORY: Stroke Like Symptoms. Confusion. COMPARISON STUDY: Head CT August 10, 2021. CT DOSE: 1111.73 mGy.cm TECHNIQUE: Helical axial images of the head were obtained without IV contrast. Automated exposure control was utilized for the study. A dose lowering technique was utilized adhering to the principles of ALARA. FINDINGS: Exam is compromised by streak artifact from a left cochlear implant. White matter hypodensities are unchanged and favor small vessel disease. There are bilateral basal ganglia calcifications. No acute intracranial hemorrhage, midline shift or mass effect is present. The ventricular system is unremarkable. Note is made of a 5.6 cm hypodensity within the left temporal lobe. The basal cisterns are patent. No extra-axial collections are present. No significant calvarial abnormalities are present. Left mastoid are cells are partially opacified, unchanged. IMPRESSION: 1. No acute intracranial hemorrhage. No mass effect. 2. 5.6 cm hypodensity within left temporal lobe. This could be artifactual given the adjacent cochlear implant. However, an acute posterior left MCA distribution infarct could appear similar. ACT 112: Negative or not required by law. Electronically signed by: Toby Caraballo M.D. 01/19/2022 4:05 PM Head CTA 01/19/22 14:46 HEAD AND NECK CTA HISTORY: Confusion. Stroke Like Symptoms TECHNIQUE: Multiaxial CT images of the head and neck were performed following the intravenous administration of contrast to evaluate the major cerebral vessels. Maximum intensity projection images were also obtained. A dose lowering technique was utilized adhering to the principles of ALARA. COMPARISON: Head CT 01/19/2022. Head and neck CTA 08/10/2021.. FINDINGS: Head CTA: Visualized intracranial distal vertebral arteries, and basilar artery are widely patent. There is no significant stenosis, occlusion, or aneurysm seen within the bilateral ACAs, MCAs, or bark grinder. The major dural venous sinuses are patent. A left cochlear implant is again noted. Moderate right and mild left focal stenosis within the supraclinoid ICAs. This remains unchanged. Neck CTA: Mild calcified plaque within the right carotid bifurcation. No significant stenosis, occlusion, or dissection within the bilateral common carotid, internal carotid, or vertebral arteries. IMPRESSION: 1. No change compared to the prior study. 2. No significant stenosis, occlusion, or aneurysm within the bilateral ACAs, MCAs, bark grinder. 3. Moderate right and mild left focal stenosis within the supraclinoid ICAs. 4. No significant stenosis, occlusion, or dissection within the cervical carotid or vertebral arteries. ACT 112: Negative or not required by law. Electronically signed by: Caleb Pace M.D. 01/19/2022 4:08 PM Neck CTA 01/19/22 14:46 HEAD AND NECK CTA HISTORY: Confusion. Stroke Like Symptoms TECHNIQUE: Multiaxial CT images of the head and neck were performed following the intravenous administration of contrast to evaluate the major cerebral vessels. Maximum intensity projection images were also obtained. A dose lowering technique was utilized adhering to the principles of ALARA. COMPARISON: Head CT 01/19/2022. Head and neck CTA 08/10/2021.. FINDINGS: Head CTA: Visualized intracranial distal vertebral arteries, and basilar artery are widely patent. There is no significant stenosis, occlusion, or aneurysm seen within the bilateral ACAs, MCAs, or bark grinder. The major dural venous sinuses are patent. A left cochlear implant is again noted. Moderate right and mild left focal stenosis within the supraclinoid ICAs. This remains unchanged. Neck CTA: Mild calcified plaque within the right carotid bifurcation. No significant stenosis, occlusion, or dissection within the bilateral common carotid, internal carotid, or vertebral arteries. IMPRESSION: 1. No change compared to the prior study. 2. No significant stenosis, occlusion, or aneurysm within the bilateral ACAs, MCAs, bark grinder. 3. Moderate right and mild left focal stenosis within the supraclinoid ICAs. 4. No significant stenosis, occlusion, or dissection within the cervical carotid or vertebral arteries. ACT 112: Negative or not required by law. Electronically signed by: Caleb Pace M.D. 01/19/2022 4:08 PM Supervising Physician Co-Signing Physician Notes Care coordinated with Chel Coyle PA-C. Agree with above note. Patient seen and examined. Please refer to her notes for full details. Vital signs reviewed. Physical exam: General exam: Alert and Awake. Not in acute distress.Confused CVS: S1 and S2 heard, regular rate and rhythm, no murmurs. RS: Clear to auscultation, no wheezing or crackles. ABD: Soft, bowel sounds present, nontender, no distention. CARPENTRY SPECIALIST: Alert and awake and oriented to name only EOM intact Speech clear, no facial droop obeys simple commands power 4/5 in all extremities co ordination of movements normal Could not do other test as difficult for patient to comprehend . EXT: No edema, no erythema. Labs: Reviewed. Assessment and plan: 66F presents with multiple medical problems as mentioned above who was recently in hospital for chest and planned for out patient stress test was brought in because of patient complaining of headache for last 3 days and getting confused since yesterday. Ptinet she has headache and no other pain. CAn tell her name, don't know where she is and dont know dates. Patient has cochlear implants and has difficulty hearing but last admission was able to understand.Afebrile. No leukocytosis. Imaging studies shows CT head: 5.6 cm hypodensity within left temporal lobe. This could be artifactual given the adjacent cochlear implant. However, an acute posterior left MCA distribution infarct could appear similar. Cannot do MRI scan because of cochlear implants. Already on aspirin and plavix. Will monitor in tele. Neuro consult. Gentle fluids. Will also emprically start on iv cefepime until cultures are back as patient has cochlear implants.Can also consider ruling out covid/viral infection with biofire. Hx of [facility] will monitor. Other diagnosis and plan of care as per Chel Coyle PA-C. José Luis ingram MD.
--- NOTE | 2022-01-19 17:29 | Electrocardiogram Report ---
Test Reason : Blood Pressure : / mmHG Vent. Rate : 089 BPM Atrial Rate : 089 BPM P-R Int : 112 ms QRS Dur : 082 ms QT Int : 374 ms P-R-T Axes : 072 -48 152 degrees QTc Int : 455 ms Normal sinus rhythm Possible Left atrial enlargement Left axis deviation Anteroseptal infarct (cited on or before 19-JAN-2022) Abnormal ECG Confirmed by Marin Bradley ([id number]) on 01/19/2022 5:28:52 PM Referred By: REFERRED SELF Confirmed By:James Bradley
[2022-01-19] MEDS ORDERED: GLUCOSE 40% GEL 15 GM TUBE PO PRN (21:25)
[2022-01-19] MEDS ORDERED: NITROGLYCERIN SL 0.4 MG/TAB TAB SL PRN (21:25)
[2022-01-19] MEDS ORDERED: CARBOHYDRATES FOR HYPOGLYCEMIA PO PRN (21:25)
[2022-01-19] MEDS ORDERED: ACETAMINOPHEN 325 MG TAB PO PRN (21:25)
[2022-01-19] MEDS ORDERED: DEXTROSE 50% 50 ML SYRINGE IV PRN (21:25)
[2022-01-19] MEDS ORDERED: ACETIC AC/HYDROCORTISONE OTIC 10ML BTL OT PRN (21:25)
[2022-01-19] MEDS ORDERED: PHARMACIST DISCHARGE MED REC CONSULT PRN (21:25)
[2022-01-19] MEDS ORDERED: CONSULT PHARMACY STA (21:25)
[2022-01-19] MEDS ORDERED: GLUCAGON FOR INJ 1 MG VIAL SQ PRN (21:25)
[2022-01-19] MEDS ORDERED: GLUCOSE 10 TABS/TUBE PO PRN (21:25)
[2022-01-19] MEDS ORDERED: POLYETHYLENE (MIRALAX) 17 GM PACK PO PRN (21:25)
[2022-01-19] MEDS: INSULIN ASPART PER UNIT SC SCH (22:54)
[2022-01-19] MEDS: METOPROLOL TARTRATE 25 MG TAB PO SCH (23:10)
[2022-01-19] MEDS: CEFEPIME 2,000 MG in SYRINGE 0 ML IV SCH (23:10)
[2022-01-19] MEDS: SODIUM CHLORIDE 0.9% 1000ML 1,000 ML IV SCH (23:10)
[2022-01-19] MEDS: INSULIN GLARGINE SOLOSTAR 100 UNITS/ML 3 ML PEN SC SCH (23:11)
[2022-01-19 23:12] LABS: Appearance Urine Clear (Clear); Bacteria Urine Automated Negative (Negative); Bilirubin Urine Negative (Negative); Blood Urine Negative (Negative); Color Urine Yellow; Epithelial Cell Urine Auto >30 /lpf (0-5); Glucose Urine UA Negative (Negative); Ketones Urine 1+ (Negative); Leukocyte Esterase Urine 1+ (Negative); Nitrite Urine Negative (Negative); Protein Urine Negative (Negative); RBC Urine Automated 0-4 /hpf (0-4); Specific Gravity Urine > 1.045 (1.000-1.030); Urobilinogen Urine Negative (Negative); WBC Urine Automated >30 /hpf (0-5); pH Urine 5.5 (4.5-7.5)
[2022-01-20 03:38] LABS: Hematocrit (blood only) 39.5 % (37-47); Hemoglobin 13.3 g/dL (12.0-16.0); Mean Corpuscular Hemoglobin 29.2 pg (25-34); Mean Corpuscular Hgb Conc 33.7 g/dL (32-36); Mean Corpuscular Volume 86.6 fL (80-100); Mean Platelet Volume 10.6 fL (7.4-10.4); Platelet Count 332 K/uL (130-400); RDW Coefficient of Variation 13.1 % (11.5-14.5); RDW Standard Deviation 41.3 fL (36.4-46.3); Red Blood Count 4.56 M/uL (4.2-5.4); White Blood Count 11.42 K/uL (4.8-10.8)
[2022-01-20 04:02] LABS: BUN Creatinine Ratio 36.4 (10-20); Calcium 9.3 mg/dl (8.5-10.1); Creatinine Clr Calc Pharmacy 85.4 ml/min; Est GFR (African American) 114.1 ml/min; Est GFR (Non-African American) 98.4 ml/min; Potassium 3.9 mmol/L (3.5-5.1)
[2022-01-20] MEDS: CEFEPIME 2,000 MG in SYRINGE 0 ML IV SCH ×2 (06:37→15:51)
[2022-01-20] MEDS: INSULIN ASPART PER UNIT SC SCH ×4 (08:11→20:35)
[2022-01-20] MEDS: CLOPIDOGREL BISULFATE 75 MG TAB PO SCH (08:12)
[2022-01-20] MEDS: amLODIPine BESYLATE 5 MG TAB PO SCH (08:12)
[2022-01-20] MEDS: METOPROLOL TARTRATE 25 MG TAB PO SCH ×2 (08:12→20:28)
[2022-01-20] MEDS: ASPIRIN 81 MG ECTAB PO SCH (08:13)
[2022-01-20] MEDS: FAMOTIDINE 40 MG TABLET PO SCH (08:13)
[2022-01-20] MEDS: INSULIN GLARGINE SOLOSTAR 100 UNITS/ML 3 ML PEN SC SCH ×2 (08:13→20:28)
[2022-01-20] MEDS: PANTOprazole 40 MG TAB PO SCH (08:13)
[2022-01-20] MEDS ORDERED: NON-FORMULARY MEDICATION (Coenzyme Q10 [Coq-10] 100 mg Capsule) PO SCH (09:00)
--- NOTE | 2022-01-20 10:10 | Electrocardiogram Report ---
Test Reason : Blood Pressure : / mmHG Vent. Rate : 112 BPM Atrial Rate : 112 BPM P-R Int : 122 ms QRS Dur : 084 ms QT Int : 340 ms P-R-T Axes : 063 -49 135 degrees QTc Int : 464 ms Sinus tachycardia Left atrial enlargement Left axis deviation Anteroseptal infarct (cited on or before 19-JAN-2022) Abnormal ECG When compared with ECG of 19-JAN-2022 15:04, No significant change was found Confirmed by Grzegorz Saucedo ([id number]) on 01/20/2022 10:09:45 AM Referred By: REFERRED SELF Confirmed By:Grzegorz Saucedo
--- NOTE | 2022-01-20 11:34 | Electrocardiogram Report ---
Test Reason : Blood Pressure : / mmHG Vent. Rate : 073 BPM Atrial Rate : 073 BPM P-R Int : 106 ms QRS Dur : 080 ms QT Int : 382 ms P-R-T Axes : 063 -49 147 degrees QTc Int : 420 ms Poor data quality, interpretation may be adversely affected Sinus rhythm with sinus arrhythmia with short DE Possible Left atrial enlargement Left axis deviation Septal infarct (cited on or before 19-JAN-2022) Possible Lateral infarct (cited on or before 19-JAN-2022) Abnormal ECG When compared with ECG of 19-JAN-2022 15:55, Vent. rate has decreased BY 39 BPM Serial changes of Septal infarct Present Confirmed by Grzegorz Saucedo ([id number]) on 01/20/2022 11:34:21 AM Referred By: REFERRED SELF Confirmed By:Grzegorz Saucedo
[2022-01-20] MEDS: SODIUM CHLORIDE 0.9% 1000ML 1,000 ML IV SCH (11:48)
--- NOTE | 2022-01-20 16:30 | Hospitalist Progress Note ---
Date of Service January 20, 2022 Assessment & Plan (1) Acute stroke due to ischemia: Plan: MRI cannot be performed secondary to cochlear implant however, CT of the head with out contrast revealed a 5.6 cm hypodensity within the left temporal rub. With her ongoing receptive aphasia this may correspond to the Wernicke's area of the brain and represent an acute ischemic stroke. As artifact from the cochlear implant is also possibility a repeat head CT will be performed. This was discussed with neurology. Continue dual antiplatelet therapy for now. Additionally, patient does not appear infected and will there are no indications of infection at this time including no white count fevers chills or ill appearance to the patient. Will stop cefepime. Known statin intolerance so we will avoid this. Seen by SURG RN today and no issues with swallowing acutely, however, may benefit from outpatient rehabilitative SURG RN intervention. SNF recommended by therapy daryn today. (2) CAD (coronary artery disease): (3) Statin intolerance: Plan: MELAS (mitochondrial encephalopathy, lactic acidosis, stroke) Continue aspirin, Plavix. Per neurology. CAD H/O history cardiac cath at [facility] 05/16/2020: VÍCTOR to proximal LAD, subtotal occlusion of RPDA branch of the distal right coronary artery supplied with [id number] collaterals, treated medically, not amendable to revascularization. Had recurrent angina which prompted a nuclear stress test in 11/2020 that was abnormal. Repeat cardiac cath at [facility] [place]12/2020: Patent LAD stent, distal RPDA stenosis again observed with ghak-ln-htthc collaterals unchanged Admission 01/15/22-01/16/22 for CP. At that time had troponin: 0.05 no acute EKG changes, was thought secondary to demand ischemia and tachycardia. Had CTA chest negative for PE. Suggested to have outpatient stress test. If this is an acute stroke would hold off until more stable. Recent echo on 01/15 revealed no acute wall motion abnormality. Had lipid panel 01/15/22. Is not candidate for statin Continue aspirin, metoprolol tartrate, Plavix, Repatha, Nexletol DM I A1c: 8.1 on 01/15/22 Currently at [facility], Continue home Lantus NovoLog sliding scale per protocol HTN chronic, controlled, continue amlodipine, metoprolol tartrate per home regimen. GERD chronic, stable, Continue PPI per home regimen. DVT Prophylaxis SCDs Full Code Dispo-uncertain at this time. Possibly to SNF Laney Murcia DO [facility] Hospitalist Admission and Anticipated Discharge Date Admission Date: January 19, 2022 Subjective 66-year-old female with history of cardiac disease status post stent placement, and MELAS presented to ER after recent discharge from the hospital for chest pain with a chief complaint of headache x3 days and confusion. She had been brought in with her family member over concerns for altered mental status for 5 to 6 days acutely worse just prior to arrival. She exhibited more delayed responses to questions, she is uncertain of the year, and had difficulty doing things at home including using a checkbook and answering questions appropriately according to her son. On arrival to the ER she is oriented to place and self and not oriented to time. She was clearly confused but in no acute distress. She was able to follow commands appropriately but had a delayed response to questioning. No gross focal deficits were picked up on exam. Blood work revealed a slightly elevated troponin at 0.05 and she did report an episode of chest pain while in the ED. Her EKG revealed T wave inversions in the lateral leads that appeared similar to previous EKG. CT imaging of the head revealed abnormality within the left temporal region and it was unclear if this was an ischemic event. An MRI was unable to be obtained because of cochlear implant. CT angiography was obtained that revealed no evidence of large vessel occlusion and she was given an aspirin in the ER. She was slightly tachycardic in the low 1 teens and in sinus rhythm. White count was normal with a normal H&H and platelet level. BNP and kidney function were normal. Blood sugar was normal. Urinalysis did not reveal evidence of infection however urine culture is pending. Blood cultures are also pending. Today she is able to hear me after repeating the question a few times, but having some difficulty processing the questions. She will answer inappropriately. Speech is intact. Slightly defensive and doesn't understand what the fuss is about. Able to move all extremities but difficulty following instructions. As an example ,she was asked several times to bend her knees and she straightened them at max effort. She is eating without issue and doesn't appear to be neglecting one side. EOMI. She is preoccupied with telling me something about her cochlear implant but i cannot quite understand. Appears to have receptive aphasia. Review of Systems Review of Systems: All systems reviewed & are unremarkable except as noted in Subjective Physical Exam Physical Exam: CONSTITUTIONAL: WNWD, vitals as above, generally well- appearing, NAD EYES: EOMI bilaterally, PERRL, normal conjunctivae, ENT: external ear and nose normal, MMM NECK: trachea midline, RESPIRATORY: clear to auscultation bilaterally, no crackles, rales or wheezes, normal respiratory effort CARDIOVASCULAR: regular rate and rhythm, S1 and 2 heard without murmurs, gallops or rubs, no JVD, no peripheral edema, CHEST: inspection of chest was normal GASTROINTESTINAL: soft, nontender, ND, no guarding MUSCULOSKELETAL: strength 5/5 throughout, head is normocephalic and atraumatic, neck supple, normal palpation of chest wall without tenderness SKIN: warm and dry, no rashes NEUROLOGIC: patellar DTRs 2+ bilat. PERRL, EOMI, no facial palsy, no dysarthria. CN 2-12 grossly intact, no sensory deficit, normal cognition, normal speech, no tremor, +receptive aphasia. PSYCHIATRIC: alert cooperative and oriented to person, place and time. Euthymic mood, makes good eye contact, language grossly intact, recent and remote memory grossly intact. Results & Data Results & Data ([facility]) Vital Signs (Past 12 Hours) Vital Signs Temp Pulse Pulse Resp BP Pulse Ox 01/20/22 15:17 37.0 C 71 18 98/62 L 99 01/20/22 14:55 78 01/20/22 11:22 36.9 C 76 17 109/67 98 01/20/22 10:41 74 01/20/22 08:13 37.1 C 76 18 113/63 91 01/20/22 08:11 36.7 C 77 19 127/79 96 Laboratory Results Short CBC 01/20/22 Range/Units 03:26 WBC 11.42 H (4.8-10.8) K/uL Hgb 13.3 (12.0-16.0) g/dL Hct 39.5 (37-47) % Plt Count 332 (130-400) K/uL BMP 01/20/22 03:26 Sodium 138 Potassium 3.9 Chloride 104 Carbon Dioxide 24 BUN 20 Creatinine 0.55 L Glucose 61 L Calcium 9.3 Cardiac Enzymes 01/19/22 01/20/22 Range/Units 21:38 03:26 Troponin I 0.06 H* 0.05 H* (0-0.04) ng/ml Urine 01/19/22 Range/Units Unknown Urine Color Yellow Urine Appearance Clear (Clear) Urine pH 5.5 (4.5-7.5) Ur Specific Maidens > 1.045 H (1.000-1.030) Urine Protein Negative (Negative) Urine Glucose (UA) Negative (Negative) Medications Administered Current Inpatient Medications Acetaminophen (Acetaminophen 325 Mg Tab) 650 mg PO Q4H PRN PRN Reason: Pain or Fever Stop: 02/18/22 21:24 Acetic Acid/Hydrocortisone (Acetic Ac/Hydrocortisone Otic 10ml Btl) 3 drops OT BID PRN PRN Reason: ITCHY EARS Stop: 02/18/22 21:24 Amlodipine Besylate (Amlodipine Besylate 5 Mg Tab) 2.5 mg PO DAILY [facility] Stop: 02/19/22 08:59 Last Admin: 01/20/22 08:12 Dose: 2.5 mg Documented by: Aspirin (Aspirin 81 Mg Ectab) 81 mg PO QAM [facility] Stop: 02/19/22 08:59 Last Admin: 01/20/22 08:13 Dose: 81 mg Documented by: Clopidogrel Bisulfate (Clopidogrel Bisulfate 75 Mg Tab) 75 mg PO QAM [facility] Stop: 02/19/22 08:59 Last Admin: 01/20/22 08:12 Dose: 75 mg Documented by: Dextrose (Dextrose 50% 50 Ml Syringe) 25 - 50 ml IV UD PRN; Protocol PRN Reason: Hypoglycemia Protocol Stop: 02/18/22 21:24 Famotidine (Famotidine 40 Mg Tablet) 40 mg PO DAILY [facility] Stop: 02/19/22 08:59 Last Admin: 01/20/22 08:13 Dose: 40 mg Documented by: Fexofenadine HCl (Fexofenadine Hcl 180 Mg Tab) 180 mg PO DAILY PRN PRN Reason: SEASONAL ALLERGIES Stop: 02/18/22 21:24 Glucagon (Glucagon For Inj 1 Mg Vial) 1 mg SQ UD PRN; Protocol PRN Reason: Hypoglycemia Protocol Stop: 02/18/22 21:24 Glucose (Glucose 10 Tabs/Tube) 4 - 8 tabs PO UD PRN; Protocol PRN Reason: Hypoglycemia Protocol Stop: 02/18/22 21:24 Glucose (Glucose 40% Gel 15 Gm Tube) 15 - 30 gm PO UD PRN; Protocol PRN Reason: Hypoglycemia Protocol Stop: 02/18/22 21:24 Insulin Aspart (Insulin Aspart Per Unit) 0 units SC ACHS [facility] Stop: 02/18/22 21:24 Last Admin: 01/20/22 12:41 Dose: 4 units Documented by: Insulin Glargine (Insulin Glargine Solostar 100 Units/Ml 3 Ml Pen) 15 units SC BID [facility] Stop: 02/18/22 21:24 Last Admin: 01/20/22 08:13 Dose: 15 units Documented by: Metoprolol Tartrate (Metoprolol Tartrate 25 Mg Tab) 25 mg PO BID [facility] Stop: 02/18/22 21:24 Last Admin: 01/20/22 08:12 Dose: 25 mg Documented by: Miscellaneous (Carbohydrates For Hypoglycemia ) 15 - 30 gm PO UD PRN PRN Reason: Hypoglycemia Protocol Stop: 02/18/22 21:24 Miscellaneous (Order Awaiting Action: Bempedoic Acid [Nexletol] 180 Mg Tablet) 1 ea N/A QS [facility] Stop: 02/19/22 00:00 Last Admin: 01/20/22 15:51 Dose: Not Given Documented by: Miscellaneous Information (Pharmacist Discharge Med Rec Consult) 1 ea N/A UD PRN PRN Reason: Consult Stop: 02/18/22 21:24 Nitroglycerin (Nitroglycerin Sl 0.4 Mg/Tab Tab) 0.4 mg SL Q5M PRN PRN Reason: Chest Pain Stop: 02/18/22 21:24 Pantoprazole Sodium (Pantoprazole 40 Mg Tab) 40 mg PO DAILY [facility] Stop: 02/19/22 08:59 Last Admin: 01/20/22 08:13 Dose: 40 mg Documented by: Polyethylene Glycol (Polyethylene (Miralax) 17 Gm Pack) 17 gm PO DAILY PRN PRN Reason: Constipation Stop: 02/18/22 21:24
--- NOTE | 2022-01-20 16:57 | Consultation Report ---
NEUROLOGY CONSULTATION NOTE DATE OF CONSULTATION: 01/20/2022. CONSULTING PHYSICIAN: Dr. Murcia. CHIEF COMPLAINT: Encephalopathy. HISTORY OF PRESENT ILLNESS: A 66-year-old female previously seen by myself in 2019 with a past medical history of MELAS, on aspirin, coronary artery disease, on Plavix as well, sensorineural hearing loss, status post cochlear implant, insulin-dependent diabetes, Meniere's disease and hypertension, presented to the hospital for 3 days of altered mental status and intermittent headache. She was recently seen in the Emergency Department for chest pain. I had previously seen the patient in 2019 for complaint of chest pain and transient dysarthria. She was admitted last evening for workup for altered mental status. History was limited, although some was gathered per report from the patient's son. She underwent urinalysis as well as CT and CTA head and neck imaging. She does have a cochlear implant and is unable to get an MRI of the brain. Neurology was consulted for further evaluation. ALLERGIES: ATORVASTATIN, PREDNISONE. HOME MEDICATIONS: Norvasc, aspirin, Plavix, coenzyme Q10, famotidine, fexofenadine, insulin, Lantus, metoprolol, pantoprazole. PAST MEDICAL HISTORY: MELAS, coronary artery disease, insulin-dependent diabetes, sensorineural hearing loss, status post cochlear implant, Meniere's disease, hypertension, hyperlipidemia. PAST SURGICAL HISTORY: Cholecystectomy, cochlear implant in 2014 in the left ear, colonoscopy/polypectomy, hysterectomy, left cardiac catheterization. FAMILY HISTORY: Mother had coronary artery disease and her father had coronary artery disease. SOCIAL HISTORY: She is . She is disabled. She has a cochlear implant. She is a former smoker. She denies any alcohol. REVIEW OF SYSTEMS: Positive for headache and altered mental status. Otherwise, all other review of systems was negative. PHYSICAL EXAMINATION: VITAL SIGNS: Blood pressure 113/63, pulse is 74, respiratory rate 18, temperature is 37.1 degrees Celsius, oxygen saturations 91% on 4 liters nasal cannula. GENERAL: The patient appears stated age, in no distress. HEENT: Head is normocephalic, atraumatic. Normal eyelids. Normal conjunctivae. NECK: Supple. LUNGS: Normal respiratory effort. CARDIAC: Pulses are intact. ABDOMEN: Nondistended. SKIN: No skin rash. PSYCHIATRIC: Normal mood and normal affect. NEUROLOGIC: She is alert. Severe aphasia not following commands even when written on white board, no dysarthria. Visual osorio full to confrontation. Pupils are symmetric. Extraocular muscles intact. Grossly hard of hearing. No facial asymmetry. Palate symmetric. Good shoulder shrug. Tongue midline. Gait evaluation deferred. No tremor, no ataxia, sensation intact to light touch. Muscle tone normal, no weakness in the upper or lower extremities. Reflexes: Toes are downgoing. DIAGNOSTIC TESTING: WBC 11.42, RBC 4.56, hemoglobin 13.3, platelet count 332. INR 1.1. Sodium 138, potassium 3.9, chloride 104, carbon dioxide 24, BUN 20, creatinine 0.55, glucose 61. Troponin negative. Urinalysis showed 1+ ketones, 1+ leukocyte esterase, greater than 30 WBCs. Urine culture is pending. Head CT noncontrast showed no acute intracranial hemorrhage, no mass effect. A 5.6 cm hypodensity within the left frontotemporal lobe. This could be artifactual given the adjacent cochlear implant. However, an acute posterior left MCA distribution infarct could appear similar. Head and neck CTA showed no change compared to the prior study. No significant stenosis, occlusion or aneurysm. Moderate right and mild focal stenosis within the supraclinoid internal carotid arteries. No significant stenosis, occlusion or dissection within the cervical or vertebral arteries. ASSESSMENT AND PLAN: A 66-year-old female admitted with receptive aphasia presumed due to left MCA ischemic stroke. She is on aspirin and Plavix for known history of coronary artery disease and MELAS, although unclear if genetic testing was performed. She does have a cochlear implant and is unable to get an MRI of the brain. Mild leukocytosis is noted on WBC. Otherwise, metabolic laboratories looked to be within normal limits. Urine culture or microbiology is pending. Head CT without any clear evidence of an acute intracranial abnormality; however, though limited due to cochlear implant. There is an area in the left temporal lobe concerning for ischemia. Unable to get MRI brain. Chest x-ray showed no acute process. Recommend we repeat a CT head noncontrast. Otherwise, continue aspirin and Plavix for secondary stroke prevention. Blood pressure is within normal limits. Follow up urine culture. Otherwise, no change in medications from neurology standpoint. History is devoid of any features to suggest she had a seizure. We will defer on EEG. Job ID: [id number] [facility]
--- NOTE | 2022-01-20 17:34 | CT Scan Report ---
CT OF THE HEAD WITHOUT CONTRAST CLINICAL HISTORY: repeat out of concern for artifact vs stroke COMPARISON STUDY: Head CT and CTA of the head January 19, 2022. CT DOSE: 614.27 mGy.cm TECHNIQUE: Helical axial images of the head were obtained without IV contrast. Automated exposure con trol was utilized for the study. A dose lowering technique was utilized adhering to the principles o f ALARA. FINDINGS: This exam is compromised by streak artifact from a left cochlear implant. Note is again mad e of a 5.5 cm hypodensity within the left temporal lobe. This is similar to head CT of January 19 022. Acute infarct is favored. However, artifact could appear similar. There is no mass effect. There is no hemorrhage. Ventricular systems. Basal cisterns are patent. Atrophy is present. White matter h ypodensity suggests small vessel disease. As before, left mastoid air cells are partially opacified. There is no calvarial fracture. IMPRESSION: 1. No acute intracranial hemorrhage. No significant mass effect. 2. No significant change in a 5.5 cm hypodensity within the left temporal lobe. An acute infarct is f avored however artifact from the cochlear implant could appear similar. ACT 112: Negative or not required by law. Electronically signed by: Toby Caraballo M.D. 01/20/2022 5:33 PM
[2022-01-21] MEDS: INSULIN ASPART PER UNIT SC SCH ×4 (08:40→20:34)
[2022-01-21] MEDS: PANTOprazole 40 MG TAB PO SCH (08:41)
[2022-01-21] MEDS: FAMOTIDINE 40 MG TABLET PO SCH (08:41)
[2022-01-21] MEDS: CLOPIDOGREL BISULFATE 75 MG TAB PO SCH (08:41)
[2022-01-21] MEDS: amLODIPine BESYLATE 5 MG TAB PO SCH (08:41)
[2022-01-21] MEDS: ASPIRIN 81 MG ECTAB PO SCH (08:41)
[2022-01-21] MEDS: METOPROLOL TARTRATE 25 MG TAB PO SCH ×2 (08:41→20:36)
[2022-01-21] MEDS: INSULIN GLARGINE SOLOSTAR 100 UNITS/ML 3 ML PEN SC SCH ×2 (08:42→20:35)
--- NOTE | 2022-01-21 10:24 | Hospitalist Progress Note ---
Date of Service January 21, 2022 Assessment & Plan (1) Acute stroke due to ischemia: Plan: MRI cannot be performed secondary to cochlear implant however, CT of the head with out contrast revealed a 5.6 cm hypodensity within the left temporal rub. With her ongoing receptive aphasia this may correspond to the Wernicke's area of the brain and likely represents an acute ischemic stroke. Continue dual antiplatelet therapy for now. Additionally, patient does not appear infected and will there are no indications of infection at this time including no white count fevers chills or ill appearance to the patient. Cefepime was stopped. Known statin intolerance so we will avoid this. Seen by JOB PRESS FEEDER this admission and no issues with swallowing acutely, however, may benefit from outpatient rehabilitative J[employer]ER intervention. SNF recommended by therapy daryn today. (2) CAD (coronary artery disease): (3) Statin intolerance: Plan: MELAS (mitochondrial encephalopathy, lactic acidosis, stroke) Continue aspirin, Plavix. Per neurology. CAD H/O history cardiac cath at [facility] 05/16/2020: VÍCTOR to proximal LAD, subtotal occlusion of RPDA branch of the distal right coronary artery supplied with [id number]-bgnah collaterals, treated medically, not amendable to revascularization. Had recurrent angina which prompted a nuclear stress test in 11/2020 that was abnormal. Repeat cardiac cath [place] [facility] [place]: Patent LAD stent, distal RPDA stenosis again observed with vygn-eo-iouxn collaterals unchanged Admission 01/15/22-01/16/22 for CP. At that time had troponin: 0.05 no acute EKG changes, was thought secondary to demand ischemia and tachycardia. Had CTA chest negative for PE. Suggested to have outpatient stress test. If this is an acute stroke would hold off until more stable. Recent echo on 01/15 revealed no acute wall motion abnormality. Had lipid panel 01/15/22. Is not candidate for statin appears stable, Continue aspirin, metoprolol tartrate, Plavix, Repatha, Nexletol DM I A1c: 8.1 on 01/15/22 Currently at [facility], Continue home Lantus NovoLog sliding scale per protocol HTN chronic, controlled, continue amlodipine, metoprolol tartrate per home regimen. GERD chronic, stable, Continue PPI per home regimen. DVT Prophylaxis SCDs Full Code Dispo-awaiting placement. Laney Murcia DO [facility] Hospitalist Admission and Anticipated Discharge Date Admission Date: January 20, 2022 Subjective 66 yo F admitted with acute stroke Still wtih receptive aphasia Therefore, she is speaking well and will say things like she is not in pain, etc. She is not able to answer questions appropriately Continues to talk about different topics. Overall all looks well. Review of Systems Review of Systems: All systems reviewed & are unremarkable except as noted in Subjective Physical Exam Physical Exam: CONSTITUTIONAL: WNWD, vitals as above, generally well- appearing, NAD EYES: normal conjunctivae, normal sclerae ENT: external ear and nose normal, MMM NECK: trachea midline, RESPIRATORY: clear to auscultation bilaterally, no crackles, rales or wheezes, normal respiratory effort CARDIOVASCULAR: regular rate and rhythm, S1 and 2 heard without murmurs, gallops or rubs, no JVD, no peripheral edema, CHEST: inspection of chest was normal GASTROINTESTINAL: soft, nontender, ND, no guarding MUSCULOSKELETAL: strength 5/5 throughout, head is normocephalic and atraumatic, neck supple, normal palpation of chest wall without tenderness SKIN: warm and dry, no rashes NEUROLOGIC: No facial palsy, no dysarthria. CN 2-12 grossly intact, no sensory deficit, normal cognition, normal speech, no tremor, +receptive aphasia. PSYCHIATRIC: alert cooperative and oriented to person, place and time. Euthymic mood, makes good eye contact, language grossly intact, recent and remote memory grossly intact. Results & Data Results & Data ([facility]) Vital Signs (Past 12 Hours) Vital Signs Temp Pulse Pulse Resp BP Pulse Ox 01/21/22 07:34 36.7 C 84 18 116/72 95 01/21/22 07:27 67 01/21/22 03:00 36.8 C 83 18 133/73 97 01/21/22 01:03 86 01/20/22 23:21 36.9 C 72 16 119/66 96 Medications Administered Current Inpatient Medications Acetaminophen (Acetaminophen 325 Mg Tab) 650 mg PO Q4H PRN PRN Reason: Pain or Fever Stop: 02/18/22 21:24 Acetic Acid/Hydrocortisone (Acetic Ac/Hydrocortisone Otic 10ml Btl) 3 drops OT BID PRN PRN Reason: ITCHY EARS Stop: 02/18/22 21:24 Amlodipine Besylate (Amlodipine Besylate 5 Mg Tab) 2.5 mg PO DAILY [facility] Stop: 02/19/22 08:59 Last Admin: 01/21/22 08:41 Dose: 2.5 mg Documented by: Aspirin (Aspirin 81 Mg Ectab) 81 mg PO QAM [facility] Stop: 02/19/22 08:59 Last Admin: 01/21/22 08:41 Dose: 81 mg Documented by: Clopidogrel Bisulfate (Clopidogrel Bisulfate 75 Mg Tab) 75 mg PO QAM [facility] Stop: 02/19/22 08:59 Last Admin: 01/21/22 08:41 Dose: 75 mg Documented by: Dextrose (Dextrose 50% 50 Ml Syringe) 25 - 50 ml IV UD PRN; Protocol PRN Reason: Hypoglycemia Protocol Stop: 02/18/22 21:24 Famotidine (Famotidine 40 Mg Tablet) 40 mg PO DAILY [facility] Stop: 02/19/22 08:59 Last Admin: 01/21/22 08:41 Dose: 40 mg Documented by: Fexofenadine HCl (Fexofenadine Hcl 180 Mg Tab) 180 mg PO DAILY PRN PRN Reason: SEASONAL ALLERGIES Stop: 02/18/22 21:24 Glucagon (Glucagon For Inj 1 Mg Vial) 1 mg SQ UD PRN; Protocol PRN Reason: Hypoglycemia Protocol Stop: 02/18/22 21:24 Glucose (Glucose 10 Tabs/Tube) 4 - 8 tabs PO UD PRN; Protocol PRN Reason: Hypoglycemia Protocol Stop: 02/18/22 21:24 Glucose (Glucose 40% Gel 15 Gm Tube) 15 - 30 gm PO UD PRN; Protocol PRN Reason: Hypoglycemia Protocol Stop: 02/18/22 21:24 Insulin Aspart (Insulin Aspart Per Unit) 0 units SC ACHS [facility] Stop: 02/18/22 21:24 Last Admin: 01/21/22 08:40 Dose: Not Given Documented by: Insulin Glargine (Insulin Glargine Solostar 100 Units/Ml 3 Ml Pen) 15 units SC BID [facility] Stop: 02/18/22 21:24 Last Admin: 01/21/22 08:42 Dose: 15 units Documented by: Metoprolol Tartrate (Metoprolol Tartrate 25 Mg Tab) 25 mg PO BID [facility] Stop: 02/18/22 21:24 Last Admin: 01/21/22 08:41 Dose: 25 mg Documented by: Miscellaneous (Carbohydrates For Hypoglycemia ) 15 - 30 gm PO UD PRN PRN Reason: Hypoglycemia Protocol Stop: 02/18/22 21:24 Miscellaneous (Order Awaiting Action: Bempedoic Acid [Nexletol] 180 Mg Tablet) 1 ea N/A QS [facility] Stop: 02/19/22 00:00 Last Admin: 01/21/22 08:41 Dose: Not Given Documented by: Miscellaneous Information (Pharmacist Discharge Med Rec Consult) 1 ea N/A UD PRN PRN Reason: Consult Stop: 02/18/22 21:24 Nitroglycerin (Nitroglycerin Sl 0.4 Mg/Tab Tab) 0.4 mg SL Q5M PRN PRN Reason: Chest Pain Stop: 02/18/22 21:24 Pantoprazole Sodium (Pantoprazole 40 Mg Tab) 40 mg PO DAILY [facility] Stop: 02/19/22 08:59 Last Admin: 01/21/22 08:41 Dose: 40 mg Documented by: Polyethylene Glycol (Polyethylene (Miralax) 17 Gm Pack) 17 gm PO DAILY PRN PRN Reason: Constipation Stop: 02/18/22 21:24
--- NOTE | 2022-01-21 14:06 | Progress Notes ---
NEUROLOGY PROGRESS NOTE DATE OF SERVICE: 01/21/2022. A 66-year-old female. SUBJECTIVE: The patient was seen and examined. The patient had no acute events overnight. Yesterday, her cochlear implant did run out of a battery. The patient had repeat CT head noncontrast yesterday around 4:30. Blood pressures remain well controlled. OBJECTIVE: VITAL SIGNS: Blood pressure 113/69 mmHg, pulse is 70, respiratory rate 17, temperature is 36.6 degrees Celsius, oxygen saturation is 97% on room air. NEUROLOGIC: The patient is awake, alert, oriented. She is following simple commands. She appears stated age, thin-appearing woman, no facial asymmetry. Tongue is midline. Eyes are midline. Extraocular muscles are intact. She has no tremor or myoclonic jerks. Moving all 4 extremities equally against gravity, moderate receptive aphasia. Grossly, hard of hearing, status post cochlear implant. DIAGNOSTIC TESTING: Repeat CT head noncontrast performed on 01/20/2022: No acute intracranial hemorrhage, no significant mass effect. No significant change in a 5.5 cm hypodensity in the left temporal lobe. ASSESSMENT AND PLAN: A 66-year-old female with a history of MELAS, coronary artery disease, on dual antiplatelet therapy, and insulin-dependent diabetes, admitted with a presumed acute to subacute left middle cerebral artery ischemic stroke resulting in a global aphasia. Recommended to continue aspirin and Plavix for secondary stroke prevention. Location of stroke suggestive of embolic etiology. CT of the head and neck showed no high-grade carotid stenosis. We would obtain transthoracic echocardiogram, as well as cardiac event monitoring as an outpatient for evaluation of paroxysmal atrial fibrillation. Continue with physical therapy and occupational therapy and speech therapy for rehabilitation needs. Otherwise, the patient will require Neurology followup in 8 weeks. Once again discussed obtaining genetic testing for mitochondrial encephalopathy. Please contact neurology with any additional questions or concerns. Job ID: [id number] [facility]
[2022-01-22] MEDS: INSULIN GLARGINE SOLOSTAR 100 UNITS/ML 3 ML PEN SC SCH ×2 (07:53→21:23)
[2022-01-22] MEDS: amLODIPine BESYLATE 5 MG TAB PO SCH (07:54)
[2022-01-22] MEDS: ASPIRIN 81 MG ECTAB PO SCH (07:54)
[2022-01-22] MEDS: CLOPIDOGREL BISULFATE 75 MG TAB PO SCH (07:54)
[2022-01-22] MEDS: PANTOprazole 40 MG TAB PO SCH (07:54)
[2022-01-22] MEDS: FAMOTIDINE 40 MG TABLET PO SCH (07:54)
[2022-01-22] MEDS: METOPROLOL TARTRATE 25 MG TAB PO SCH ×2 (07:54→21:23)
[2022-01-22] MEDS: INSULIN ASPART PER UNIT SC SCH ×4 (08:13→21:22)
--- NOTE | 2022-01-22 13:54 | Hospitalist Progress Note ---
Date of Service January 22, 2022 Assessment & Plan (1) Acute stroke due to ischemia: Plan: MRI cannot be performed secondary to cochlear implant however, CT of the head with out contrast revealed a 5.6 cm hypodensity within the left temporal rub. With her ongoing receptive aphasia this may correspond to the Wernicke's area of the brain and likely represents an acute ischemic stroke. Continue dual antiplatelet therapy for now. Additionally, patient does not appear infected and will there are no indications of infection at this time including no white count fevers chills or ill appearance to the patient. Cefepime was stopped. Known statin intolerance so we will avoid this. Seen by THERMOMETER TESTER this admission and no issues with swallowing acutely, however, may benefit from outpatient rehabilitative THERMOMETER TESTER intervention. SNF recommended by therapy daryn today. (2) CAD (coronary artery disease): (3) Statin intolerance: Plan: MELAS (mitochondrial encephalopathy, lactic acidosis, stroke) Continue aspirin, Plavix. Per neurology. CAD H/O history cardiac cath at [facility] 05/16/2020: VÍCTOR to proximal LAD, subtotal occlusion of RPDA branch of the distal right coronary artery supplied with [id number] collaterals, treated medically, not amendable to revascularization. Had recurrent angina which prompted a nuclear stress test in 11/2020 that was abnormal. Repeat cardiac cath at [facility] 12/12/2020: Patent LAD stent, distal RPDA stenosis again observed with [id number] collaterals unchanged Admission 01/15/22-01/16/22 for CP. At that time had troponin: 0.05 no acute EKG changes, was thought secondary to demand ischemia and tachycardia. Had CTA chest negative for PE. Suggested to have outpatient stress test. Would hold off until more stable post acute stroke this week. Recent echo on 01/15 revealed no acute wall motion abnormality. Had lipid panel 01/15/22. Is not candidate for statin appears stable, Continue aspirin, metoprolol tartrate, Plavix, Repatha, Nexletol DM I A1c: 8.1 on 01/15/22 Currently at [facility], Continue home Lantus NovoLog sliding scale per protocol HTN chronic, controlled, continue amlodipine, metoprolol tartrate per home regimen. GERD chronic, stable, Continue PPI per home regimen. DVT Prophylaxis SCDs Full Code Dispo-awaiting placement. Laney Murcia [facility] and Anticipated Discharge Date Admission Date: January 20, 2022 Subjective 66 yo F admitted with acute stroke Still wtih receptive aphasia. She is not able to answer questions appropriately Continues to talk about different topics. Overall all looks well and unchanged from yesterday Review of Systems Review of Systems: Unobtainable due to mental health condition Physical Exam Physical Exam: CONSTITUTIONAL: WNWD, vitals as above, generally well- appearing, NAD EYES: normal conjunctivae, normal sclerae ENT: external ear and nose normal, MMM NECK: trachea midline, RESPIRATORY: clear to auscultation bilaterally, no crackles, rales or wheezes, normal respiratory effort CARDIOVASCULAR: regular rate and rhythm, S1 and 2 heard without murmurs, gallops or rubs, no JVD, no peripheral edema, CHEST: inspection of chest was normal GASTROINTESTINAL: soft, nontender, ND, no guarding MUSCULOSKELETAL: strength 5/5 throughout, head is normocephalic and atraumatic, neck supple, normal palpation of chest wall without tenderness SKIN: warm and dry, no rashes NEUROLOGIC: No facial palsy, no dysarthria. CN 2-12 grossly intact, no sensory deficit, normal cognition, normal speech, no tremor, +receptive aphasia. PSYCHIATRIC: alert but uncooperative as she cannot understand any instruction. Uncertain orientation as she is unable to accurately answer these questions. She doesn't appear to understand the question. Euthymic mood, makes good eye contact, language grossly intact Results & Data Results & Data ([facility]) Vital Signs (Past 12 Hours) Vital Signs Temp Pulse Pulse Resp BP Pulse Ox 01/22/22 12:35 36.7 C 69 17 110/69 98 01/22/22 11:56 66 01/22/22 07:48 36.7 C 88 17 126/78 98 01/22/22 04:00 36.8 C 79 18 97 Medications Administered Current Inpatient Medications Acetaminophen (Acetaminophen 325 Mg Tab) 650 mg PO Q4H PRN PRN Reason: Pain or Fever Stop: 02/18/22 21:24 Acetic Acid/Hydrocortisone (Acetic Ac/Hydrocortisone Otic 10ml Btl) 3 drops OT BID PRN PRN Reason: ITCHY EARS Stop: 02/18/22 21:24 Amlodipine Besylate (Amlodipine Besylate 5 Mg Tab) 2.5 mg PO DAILY [place] Stop: 02/19/22 08:59 Last Admin: 01/22/22 07:54 Dose: 2.5 mg Documented by: Aspirin (Aspirin 81 Mg Ectab) 81 mg PO QAM [facility] Stop: 02/19/22 08:59 Last Admin: 01/22/22 07:54 Dose: 81 mg Documented by: Clopidogrel Bisulfate (Clopidogrel Bisulfate 75 Mg Tab) 75 mg PO QAM [facility] Stop: 02/19/22 08:59 Last Admin: 01/22/22 07:54 Dose: 75 mg Documented by: Dextrose (Dextrose 50% 50 Ml Syringe) 25 - 50 ml IV UD PRN; Protocol PRN Reason: Hypoglycemia Protocol Stop: 02/18/22 21:24 Famotidine (Famotidine 40 Mg Tablet) 40 mg PO DAILY [facility] Stop: 02/19/22 08:59 Last Admin: 01/22/22 07:54 Dose: 40 mg Documented by: Fexofenadine HCl (Fexofenadine Hcl 180 Mg Tab) 180 mg PO DAILY PRN PRN Reason: SEASONAL ALLERGIES Stop: 02/18/22 21:24 Glucagon (Glucagon For Inj 1 Mg Vial) 1 mg SQ UD PRN; Protocol PRN Reason: Hypoglycemia Protocol Stop: 02/18/22 21:24 Glucose (Glucose 10 Tabs/Tube) 4 - 8 tabs PO UD PRN; Protocol PRN Reason: Hypoglycemia Protocol Stop: 02/18/22 21:24 Glucose (Glucose 40% Gel 15 Gm Tube) 15 - 30 gm PO UD PRN; Protocol PRN Reason: Hypoglycemia Protocol Stop: 02/18/22 21:24 Insulin Aspart (Insulin Aspart Per Unit) 0 units SC ACHS [facility] Stop: 02/18/22 21:24 Last Admin: 01/22/22 12:19 Dose: 3 units Documented by: Insulin Glargine (Insulin Glargine Solostar 100 Units/Ml 3 Ml Pen) 15 units SC BID [facility] Stop: 02/18/22 21:24 Last Admin: 01/22/22 07:53 Dose: 15 units Documented by: Metoprolol Tartrate (Metoprolol Tartrate 25 Mg Tab) 25 mg PO BID [facility] Stop: 02/18/22 21:24 Last Admin: 01/22/22 07:54 Dose: 25 mg Documented by: Miscellaneous (Carbohydrates For Hypoglycemia ) 15 - 30 gm PO UD PRN PRN Reason: Hypoglycemia Protocol Stop: 02/18/22 21:24 Miscellaneous (Order Awaiting Action: Bempedoic Acid [Nexletol] 180 Mg Tablet) 1 ea N/A QS [place] Stop: 02/19/22 00:00 Last Admin: 01/22/22 07:31 Dose: Not Given Documented by: Miscellaneous Information (Pharmacist Discharge Med Rec Consult) 1 ea N/A UD PRN PRN Reason: Consult Stop: 02/18/22 21:24 Nitroglycerin (Nitroglycerin Sl 0.4 Mg/Tab Tab) 0.4 mg SL Q5M PRN PRN Reason: Chest Pain Stop: 02/18/22 21:24 Pantoprazole Sodium (Pantoprazole 40 Mg Tab) 40 mg PO DAILY [facility] Stop: 02/19/22 08:59 Last Admin: 01/22/22 07:54 Dose: 40 mg Documented by: Polyethylene Glycol (Polyethylene (Miralax) 17 Gm Pack) 17 gm PO DAILY PRN PRN Reason: Constipation Stop: 02/18/22 21:24
--- NOTE | 2022-01-22 19:11 | Progress Notes ---
DATE OF SERVICE: 01/22/2022 SUBJECTIVE: I am seeing Mrs. Chavez in followup. Dr. Larsen has been seeing her. She has a history of MELAS, but no prior known stroke. She presented with several days of aphasia and CT of the head shows a left temporal hypodensity consistent with infarct. CTA showed no high-grade left internal carotid stenosis. There is some supraclinoid stenosis, right greater than left. The patient is on dual antiplatelet therapy. Her echocardiogram was technically adequate. No significant change, mild mitral regurg. Left atrial size is normal. No atrial septal defect. Electrocardiogram, sinus rhythm with sinus arrhythmia. OBJECTIVE: Vital signs 110/69, 83, 17, 36.7, O2 sat 98%. The patient is awake and alert. She speaks in fragments of speech, which alone, can make sense, but are not pertinent typically to the conversation. She at one point was unable to state her name, but then later was able to tell me her name. She followed some simple motoric commands, mostly by mimicking. There was no obvious hemiparesis. Reflexes were symmetric. Detailed sensory and cerebellar examination were difficult to perform. Cranial nerves: Pupils are equal. There is no response to visual threat bilaterally, although I believe the patient could see. There is a mild flattening of the right nasolabial fold and reflexes are mildly increased in the right lower. 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 The patient has multiple vascular risk factors. In terms of exploring cardiac etiologies, it appears that she has had an echo, but not a bubble study. I would recommend the addition of a bubble study. If that shows a patent foramen ovale, I would consider doing venous Dopplers of the upper and lower extremities. Better control of diabetes is recommended and statin therapy if the patient has not tried all statins options. There is some data suggestive that L- arginine could be prophylactic for stroke in mitochondrial encephalomyopathy, lactic acidosis and stroke-like episodes. It is not formulary not in our system. Consider starting as an outpatient 1000 mg twice a day. Side effects include nausea, vomiting, flushing and headache in about 3% of people. Recommend genetic testing as an outpatient for confirmation of diagnosis and a Zio patch. Job ID: [id number] [facility]
[2022-01-23] MEDS: FEXOFENADINE HCL 180 MG TAB PO PRN (08:25)
[2022-01-23] MEDS: METOPROLOL TARTRATE 25 MG TAB PO SCH ×2 (08:25→20:48)
[2022-01-23] MEDS: FAMOTIDINE 40 MG TABLET PO SCH (08:25)
[2022-01-23] MEDS: ASPIRIN 81 MG ECTAB PO SCH (08:26)
[2022-01-23] MEDS: CLOPIDOGREL BISULFATE 75 MG TAB PO SCH (08:26)
[2022-01-23] MEDS: PANTOprazole 40 MG TAB PO SCH (08:26)
[2022-01-23] MEDS: amLODIPine BESYLATE 5 MG TAB PO SCH (08:26)
[2022-01-23] MEDS: INSULIN ASPART PER UNIT SC SCH ×4 (08:40→20:45)
[2022-01-23] MEDS: INSULIN GLARGINE SOLOSTAR 100 UNITS/ML 3 ML PEN SC SCH ×2 (08:41→20:48)
--- NOTE | 2022-01-23 11:22 | Neurology Progress Note ---
Date of Service January 23, 2022 Assessment & Plan (1) MELAS (mitochondrial encephalopathy, lactic acidosis and stroke-like ep isodes): Plan: 1. CT head- likely temporal lobe stroke 2. TTE- no ASD 3. may start L-arginine 1000 mg BID as out patient 4. ZIO as outpatient 5. continue aspirin 81 mg and plavix 75 mg daily - could do a verify now as outpatient on both aspirin and plavix 6. genetic testing as outpatient 7. PT/OT speech for discharge needs. follow up with Neurology 4-6 weeks after discharge from rehab. (2) Altered mental status: Plan: 1. continue to monitor Admission and Anticipated Discharge Date Admission Date: January 20, 2022 Supervising Physician Co-Signing Physician Notes I have seen and discussed above patient with Dr Jennifer Rg. Patient seen and examined appears much the same as yesterday although perhaps somewhat easier to say her name and more fragments of speech. Impression left MCA infarction plan as above outpatient ZIO outpatient L-arginine. Patient will likely need inpatient therapy will sign off at present Jennifer Rg MD Charlie Land is a 66 female with PMH- CAD, NSTEMI, VÍCTOR TO LAD 2019, DM, HTN, HLD, MELAS (mitochondrial encephalopathy, lactic acidosis, stroke), GERD, Schatzki ring presented to ER with complaint of GRIMES x 3 days and AMS. ith She had a hospitalization 01/14/2022-01/15/2022 for chest pain and was discharged home with consideration of outpatient stress test.3 days ago she was complaining of headache, the following day denied any headache. the a new onset of headache again and she seemed confused, she was having trouble using and balancing her checkbook.She woke up morning of admission 01/19/22 continuing to complain of headache and she was increasingly confused and was brought to the [facility] ED. She was under stress with recent of her daughter. She had reported some dizziness with ambulation to bathroom. Son has been staying with her since her last hospital discharge. Then a couple days has been not wanting to eat and he has been encouraging her to eat and drink. She is doing well to day but she is still very dyspasic Review of Systems Review of Systems: Unobtainable due to mental health condition Physical Exam Physical Exam: Physical Exam: Constitutional: appearance nourished, healthy Ears, Nose, Mouth and Throat: mucous membranes moist, no injection and skin normal, eyes normal Cardiovascular: normal S-1 and S-2 and regular rate and rhythm Respiratory: normal respiratory effort Musculoskeletal: no peripheral edema and good distal pulses Skin: no stigmata of neurocutaneous disease noted and normal and intact Eyes: extraocular muscles intact (EOMI) unable to fully assess NEUROLOGIC EXAMINATION: Mental status: Alert and interactive Oriented to person Patient to collates and fragments of speech which are often not relevant to conversation. Speech is minimally dysarthric she did however mention that Jennifer's touch was cool which in fact it was. With great difficulty she was able to state her name she was not able to name items. She could only follow some motoric commands in the upper and lower extremities which appeared to be symmetric. Unable to name or repeat Cranial Nerves flattening the right nasolabial fol Sensory: intact to cool touch Coordination: unable to assess Gait/Stance: Posture normal. Gait normal: with steady with steps, base, turning, heel and toe walking and tandem gait. Motor: Negative for pronator drift of out stretched arms with eyes closed. Strength: Normal - 5/5 all extremities Results & Data ([facility]) Vital Signs (Past 12 Hours) Vital Signs Temp Pulse Pulse Resp BP Pulse Ox 01/23/22 10:59 37.0 C 87 18 115/69 96 01/23/22 07:36 78 01/23/22 07:32 37.1 C 93 H 20 116/67 98 01/23/22 04:29 36.9 C 93 H 20 115/64 95 Laboratory Results Abnormal lab results 01/22/22 01/22/22 01/23/22 Range/Units 16:30 20:31 07:20 POC Glucose 162 H 195 H 161 H (70-99) mg/dl Diagnostic Findings CT head-No acute intracranial hemorrhage. No significant mass effect. No significant change in a 5.5 cm hypodensity within the left temporal lobe. An acute infarct is favored however artifact from the cochlear implant could appear similar. CTA head and neck- No change compared to the prior study. No significant stenosis, occlusion, or aneurysm within the bilateral ACAs, MCAs, vaccine manager. Moderate right and mild left focal stenosis within the supraclinoid ICAs. . No significant stenosis, occlusion, or dissection within the cervical carotid or vertebral arteries. TTE 55-60% bubble study done - no ASD
--- NOTE | 2022-01-23 17:01 | Hospitalist Progress Note ---
Date of Service January 23, 2022 Assessment & Plan (1) Acute stroke due to ischemia: Plan: LEft MCA infarction, possibly related to mitochondrial encephalomyopathy, lactic acidosis and stroke-liek episodes vs other etiologies. She has vascular risk factors and known vascular disease. MRI cannot be performed secondary to cochlear implant however, CT of the head with out contrast revealed a 5.6 cm hypodensity within the left temporal rub. With her ongoing receptive aphasia this may correspond to the Wernicke's area of the brain and likely represents an acute ischemic stroke. Continue dual antiplatelet therapy for now. Additionally, patient does not appear infected and will there are no indications of infection at this time including no white count fevers chills or ill appearance to the patient. Cefepime was stopped. Known statin intolerance so we will avoid this. Seen by RENAL TECHNICIAN this admission and no issues with swallowing acutely, however, may benefit from outpatient rehabilitative RENAL TECHNICIAN intervention. SNF recommended by therapy daryn. A bubble study was ordered today and is pending. If PFO present, will consider dopplers of extremities. Defer repeat statin trial to outpatient PCP given current mental status and inability to give feedback on adverse drug reactions at this time. Genetic testing as outpatient recommended to confirm dx of MELAS and consider L-arginine supplementation 1000mg BID which may help to prevent stroke in this case. Zio patch as outpatient. (2) CAD (coronary artery disease): (3) Statin intolerance: Plan: MELAS (mitochondrial encephalopathy, lactic acidosis, stroke) Continue aspirin, Plavix. Arginine supplementation recommended per neurology. Will recommend to start after discharge as not on formulary here. CAD H/O history cardiac cath at [facility] 05/16/2020: VÍCTOR to proximal LAD, subtotal occlusion of RPDA branch of the distal right coronary artery supplied with [id number] collaterals, treated medically, not amendable to revascularization. Had recurrent angina which prompted a nuclear stress test in 11/2020 that was abnormal. [place] [facility] [place] Patent LAD stent, distal RPDA stenosis again observed with [id number] collaterals unchanged Admission 01/15/22-01/16/22 for CP. At that time had troponin: 0.05 no acute EKG changes, was thought secondary to demand ischemia and tachycardia. Had CTA chest negative for PE. Suggested to have outpatient stress test. Would hold off until more stable post acute stroke this week. Recent echo on 01/15 revealed no acute wall motion abnormality. Had lipid panel 01/15/22. Is not candidate for statin appears stable, Continue aspirin, metoprolol tartrate, Plavix, Repatha, Nexletol DM I A1c: 8.1 on 01/15/22 Currently at [facility], Continue home Lantus NovoLog sliding scale per protocol HTN chronic, controlled, continue amlodipine, metoprolol tartrate per home regimen. GERD chronic, stable, Continue PPI per home regimen. DVT Prophylaxis SCDs Full Code Dispo-awaiting placement. Laney Murcia DO [facility] Hospitalist Admission and Anticipated Discharge Date Admission Date: January 20, 2022 Subjective 66 yo F admitted with acute stroke Still wtih receptive aphasia-unchanged since yesterday She is not able to answer questions appropriately Continues to talk about different topics. Overall all looks well and unchanged from yesterday Son at bedside and discussed care plan with him. Also we discussed that he may want to take her phone from her after he reported getting strange text messages from her. Review of Systems Review of Systems: Unobtainable due to mental health condition Physical Exam Physical Exam: CONSTITUTIONAL: WNWD, vitals as above, generally well- appearing, NAD EYES: normal conjunctivae, normal sclerae ENT: external ear and nose normal, MMM NECK: trachea midline, RESPIRATORY: clear to auscultation bilaterally, no crackles, rales or wheezes, normal respiratory effort CARDIOVASCULAR: regular rate and rhythm, S1 and 2 heard without murmurs, gallops or rubs, no JVD, no peripheral edema, CHEST: inspection of chest was normal GASTROINTESTINAL: soft, nontender, ND, no guarding MUSCULOSKELETAL: strength 5/5 throughout, head is normocephalic and atraumatic, neck supple, normal palpation of chest wall without tenderness SKIN: warm and dry, no rashes NEUROLOGIC: No facial palsy, no dysarthria. CN 2-12 grossly intact, no sensory deficit, normal cognition, normal speech, no tremor, +receptive aphasia. PSYCHIATRIC: alert but uncooperative as she cannot understand any instruction. Uncertain orientation as she is unable to accurately answer these questions. She doesn't appear to understand the question. Euthymic mood, makes good eye contact, language grossly intact Results & Data Results & Data ([facility]) Vital Signs (Past 12 Hours) Vital Signs Temp Pulse Pulse Pulse Resp BP Pulse Ox 01/23/22 16:00 36.3 C L 78 18 124/73 97 01/23/22 15:35 74 01/23/22 10:59 37.0 C 87 18 115/69 96 01/23/22 07:36 78 01/23/22 07:32 37.1 C 93 H 20 116/67 98 Medications Administered Current Inpatient Medications Acetaminophen (Acetaminophen 325 Mg Tab) 650 mg PO Q4H PRN PRN Reason: Pain or Fever Stop: 02/18/22 21:24 Acetic Acid/Hydrocortisone (Acetic Ac/Hydrocortisone Otic 10ml Btl) 3 drops OT BID PRN PRN Reason: ITCHY EARS Stop: 02/18/22 21:24 Amlodipine Besylate (Amlodipine Besylate 5 Mg Tab) 2.5 mg PO DAILY [facility] Stop: 02/19/22 08:59 Last Admin: 01/23/22 08:26 Dose: 2.5 mg Documented by: Aspirin (Aspirin 81 Mg Ectab) 81 mg PO QAM [facility] Stop: 02/19/22 08:59 Last Admin: 01/23/22 08:26 Dose: 81 mg Documented by: Clopidogrel Bisulfate (Clopidogrel Bisulfate 75 Mg Tab) 75 mg PO QAM [facility] Stop: 02/19/22 08:59 Last Admin: 01/23/22 08:26 Dose: 75 mg Documented by: Dextrose (Dextrose 50% 50 Ml Syringe) 25 - 50 ml IV UD PRN; Protocol PRN Reason: Hypoglycemia Protocol Stop: 02/18/22 21:24 Famotidine (Famotidine 40 Mg Tablet) 40 mg PO DAILY [facility] Stop: 02/19/22 08:59 Last Admin: 01/23/22 08:25 Dose: 40 mg Documented by: Fexofenadine HCl (Fexofenadine Hcl 180 Mg Tab) 180 mg PO DAILY PRN PRN Reason: SEASONAL ALLERGIES Stop: 02/18/22 21:24 Last Admin: 01/23/22 08:25 Dose: 180 mg Documented by: Glucagon (Glucagon For Inj 1 Mg Vial) 1 mg SQ UD PRN; Protocol PRN Reason: Hypoglycemia Protocol Stop: 02/18/22 21:24 Glucose (Glucose 10 Tabs/Tube) 4 - 8 tabs PO UD PRN; Protocol PRN Reason: Hypoglycemia Protocol Stop: 02/18/22 21:24 Glucose (Glucose 40% Gel 15 Gm Tube) 15 - 30 gm PO UD PRN; Protocol PRN Reason: Hypoglycemia Protocol Stop: 02/18/22 21:24 Insulin Aspart (Insulin Aspart Per Unit) 0 units SC ACHS [facility] Stop: 02/18/22 21:24 Last Admin: 01/23/22 12:36 Dose: 7 units Documented by: Insulin Glargine (Insulin Glargine Solostar 100 Units/Ml 3 Ml Pen) 15 units SC BID [facility] Stop: 02/18/22 21:24 Last Admin: 01/23/22 08:41 Dose: 15 units Documented by: Metoprolol Tartrate (Metoprolol Tartrate 25 Mg Tab) 25 mg PO BID [facility] Stop: 02/18/22 21:24 Last Admin: 01/23/22 08:25 Dose: 25 mg Documented by: Miscellaneous (Carbohydrates For Hypoglycemia ) 15 - 30 gm PO UD PRN PRN Reason: Hypoglycemia Protocol Stop: 02/18/22 21:24 Miscellaneous (Order Awaiting Action: Bempedoic Acid [Nexletol] 180 Mg Tablet) 1 ea N/A QS [facility] Stop: 02/19/22 00:00 Last Admin: 01/23/22 15:41 Dose: Not Given Documented by: Miscellaneous Information (Pharmacist Discharge Med Rec Consult) 1 ea N/A UD PRN PRN Reason: Consult Stop: 02/18/22 21:24 Nitroglycerin (Nitroglycerin Sl 0.4 Mg/Tab Tab) 0.4 mg SL Q5M PRN PRN Reason: Chest Pain Stop: 02/18/22 21:24 Pantoprazole Sodium (Pantoprazole 40 Mg Tab) 40 mg PO DAILY [facility] Stop: 02/19/22 08:59 Last Admin: 01/23/22 08:26 Dose: 40 mg Documented by: Polyethylene Glycol (Polyethylene (Miralax) 17 Gm Pack) 17 gm PO DAILY PRN PRN Reason: Constipation Stop: 02/18/22 21:24
[2022-01-24] MEDS: METOPROLOL TARTRATE 25 MG TAB PO SCH ×2 (09:09→20:47)
[2022-01-24] MEDS: ASPIRIN 81 MG ECTAB PO SCH (09:09)
[2022-01-24] MEDS: PANTOprazole 40 MG TAB PO SCH (09:09)
[2022-01-24] MEDS: FAMOTIDINE 40 MG TABLET PO SCH (09:09)
[2022-01-24] MEDS: CLOPIDOGREL BISULFATE 75 MG TAB PO SCH (09:09)
[2022-01-24] MEDS: amLODIPine BESYLATE 5 MG TAB PO SCH (09:10)
[2022-01-24] MEDS: INSULIN ASPART PER UNIT SC SCH ×4 (09:14→20:40)
[2022-01-24] MEDS: INSULIN GLARGINE SOLOSTAR 100 UNITS/ML 3 ML PEN SC SCH ×2 (09:14→20:47)
--- NOTE | 2022-01-24 15:48 | Hospitalist Progress Note ---
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 She has vascular risk factors and known vascular disease. MRI cannot be performed secondary to cochlear implant however, CT of the head with out contrast revealed a 5.6 cm hypodensity within the left temporal rub. With her ongoing receptive aphasia this may correspond to the Wernicke's area of the brain and likely represents an acute ischemic stroke. Continue dual antiplatelet therapy for now. Additionally, patient does not appear infected and will there are no indications of infection at this time including no white count fevers chills or ill appearance to the patient. Cefepime was stopped. Known statin intolerance so we will avoid this. Seen by CHEMICAL INSTRUMENTATION OFFICER this admission and no issues with swallowing acutely, however, may benefit from outpatient rehabilitative CHEMICAL INSTRUMENTATION OFFICER intervention. SNF recommended by therapy daryn. A bubble study was ordered today and was negative for intracardial shunt. Will recommend Zio patch as outpatient. Genetic testing as outpatient recommended to confirm dx of MELAS and consider L-arginine supplementation 1000mg BID which may help to prevent stroke in this case. (2) CAD (coronary artery disease): (3) Statin intolerance: Plan: MELAS (mitochondrial encephalopathy, lactic acidosis, stroke) Continue aspirin, Plavix. Arginine supplementation recommended per neurology. Will recommend to start after discharge as not on formulary here. CAD H/O history cardiac cath at [facility] 05/16/2020: VÍCTOR to proximal LAD, subtotal occlusion of RPDA branch of the distal right coronary artery supplied with [id number] collaterals, treated medically, not amendable to revascularization. Had recurrent angina which prompted a nuclear stress test in 11/2020 that was abnormal. Repeat cardiac cath at [facility] [place] 12/12/2020: Patent LAD stent, distal RPDA stenosis again observed with [id number] collaterals unchanged Admission 01/15/22-01/16/22 for CP. At that time had troponin: 0.05 no acute EKG changes, was thought secondary to demand ischemia and tachycardia. Had CTA chest negative for PE. Suggested to have outpatient stress test. Would hold off until more stable post acute stroke this week. Recent echo on 01/15 revealed no acute wall motion abnormality. Had lipid panel 01/15/22. Is not candidate for statin appears stable, Continue aspirin, metoprolol tartrate, Plavix, Repatha, Nexletol DM I A1c: 8.1 on 01/15/22 Currently at [facility], Continue home Lantus NovoLog sliding scale per protocol HTN chronic, controlled, continue amlodipine, metoprolol tartrate per home regimen. GERD chronic, stable, Continue PPI per home regimen. DVT Prophylaxis SCDs Full Code Dispo-awaiting placement. [facility] Admission and Anticipated Discharge Date Admission Date: January 20, 2022 Subjective 66 yo F admitted with acute stroke Still wtih receptive aphasia-unchanged since yesterday She is not able to answer questions appropriately Continues to talk about different topics. Overall all looks well and unchanged from yesterday awaiting [facility] acceptance Review of Systems Review of Systems: Unobtainable due to mental health condition Physical Exam Physical Exam: CONSTITUTIONAL: WNWD, vitals as above, generally well- appearing, NAD EYES: normal conjunctivae, normal sclerae ENT: external ear and nose normal, MMM NECK: trachea midline, RESPIRATORY: clear to auscultation bilaterally, no crackles, rales or wheezes, normal respiratory effort CARDIOVASCULAR: regular rate and rhythm, S1 and 2 heard without murmurs, gallops or rubs, no JVD, no peripheral edema, CHEST: inspection of chest was normal GASTROINTESTINAL: soft, nontender, ND, no guarding MUSCULOSKELETAL: strength 5/5 throughout, head is normocephalic and atraumatic, neck supple, normal palpation of chest wall without tenderness SKIN: warm and dry, no rashes NEUROLOGIC: No facial palsy, no dysarthria. CN 2-12 grossly intact, no sensory deficit, normal cognition, normal speech, no tremor, +receptive aphasia. PSYCHIATRIC: alert but uncooperative as she cannot understand any instruction. Uncertain orientation as she is unable to accurately answer these questions. She doesn't appear to understand the question. Euthymic mood, makes good eye contact, language grossly intact Results & Data Results & Data ([facility]) Vital Signs (Past 12 Hours) Vital Signs Temp Pulse Pulse Pulse Resp BP Pulse Ox 01/24/22 11:14 36.7 C 78 18 118/69 98 01/24/22 09:27 75 01/24/22 07:56 36.6 C 77 18 118/72 97 01/24/22 04:18 37.1 C 89 20 114/67 94 Medications Administered Current Inpatient Medications Acetaminophen (Acetaminophen 325 Mg Tab) 650 mg PO Q4H PRN PRN Reason: Pain or Fever Stop: 02/18/22 21:24 Acetic Acid/Hydrocortisone (Acetic Ac/Hydrocortisone Otic 10ml Btl) 3 drops OT BID PRN PRN Reason: ITCHY EARS Stop: 02/18/22 21:24 Amlodipine Besylate (Amlodipine Besylate 5 Mg Tab) 2.5 mg PO DAILY [facility] Stop: 02/19/22 08:59 Last Admin: 01/24/22 09:10 Dose: 2.5 mg Documented by: Aspirin (Aspirin 81 Mg Ectab) 81 mg PO QAM [facility] Stop: 02/19/22 08:59 Last Admin: 01/24/22 09:09 Dose: 81 mg Documented by: Clopidogrel Bisulfate (Clopidogrel Bisulfate 75 Mg Tab) 75 mg PO QAM [facility] Stop: 02/19/22 08:59 Last Admin: 01/24/22 09:09 Dose: 75 mg Documented by: Dextrose (Dextrose 50% 50 Ml Syringe) 25 - 50 ml IV UD PRN; Protocol PRN Reason: Hypoglycemia Protocol Stop: 02/18/22 21:24 Famotidine (Famotidine 40 Mg Tablet) 40 mg PO DAILY [facility] Stop: 02/19/22 08:59 Last Admin: 01/24/22 09:09 Dose: 40 mg Documented by: Fexofenadine HCl (Fexofenadine Hcl 180 Mg Tab) 180 mg PO DAILY PRN PRN Reason: SEASONAL ALLERGIES Stop: 02/18/22 21:24 Last Admin: 01/23/22 08:25 Dose: 180 mg Documented by: Glucagon (Glucagon For Inj 1 Mg Vial) 1 mg SQ UD PRN; Protocol PRN Reason: Hypoglycemia Protocol Stop: 02/18/22 21:24 Glucose (Glucose 10 Tabs/Tube) 4 - 8 tabs PO UD PRN; Protocol PRN Reason: Hypoglycemia Protocol Stop: 02/18/22 21:24 Glucose (Glucose 40% Gel 15 Gm Tube) 15 - 30 gm PO UD PRN; Protocol PRN Reason: Hypoglycemia Protocol Stop: 02/18/22 21:24 Insulin Aspart (Insulin Aspart Per Unit) 0 units SC ACHS [facility] Stop: 02/18/22 21:24 Last Admin: 01/24/22 12:48 Dose: 8 units Documented by: Insulin Glargine (Insulin Glargine Solostar 100 Units/Ml 3 Ml Pen) 15 units SC BID [facility] Stop: 02/18/22 21:24 Last Admin: 01/24/22 09:14 Dose: 15 units Documented by: Metoprolol Tartrate (Metoprolol Tartrate 25 Mg Tab) 25 mg PO BID [facility] Stop: 02/18/22 21:24 Last Admin: 01/24/22 09:09 Dose: 25 mg Documented by: Miscellaneous (Carbohydrates For Hypoglycemia ) 15 - 30 gm PO UD PRN PRN Reason: Hypoglycemia Protocol Stop: 02/18/22 21:24 Miscellaneous (Order Awaiting Action: Bempedoic Acid [Nexletol] 180 Mg Tablet) 1 ea N/A QS [facility] Stop: 02/19/22 00:00 Last Admin: 01/24/22 09:11 Dose: Not Given Documented by: Miscellaneous Information (Pharmacist Discharge Med Rec Consult) 1 ea N/A UD PRN PRN Reason: Consult Stop: 02/18/22 21:24 Nitroglycerin (Nitroglycerin Sl 0.4 Mg/Tab Tab) 0.4 mg SL Q5M PRN PRN Reason: Chest Pain Stop: 02/18/22 21:24 Pantoprazole Sodium (Pantoprazole 40 Mg Tab) 40 mg PO DAILY [facility] Stop: 02/19/22 08:59 Last Admin: 01/24/22 09:09 Dose: 40 mg Documented by: Polyethylene Glycol (Polyethylene (Miralax) 17 Gm Pack) 17 gm PO DAILY PRN PRN Reason: Constipation Stop: 02/18/22 21:24
[2022-01-25] MEDS: ASPIRIN 81 MG ECTAB PO SCH (08:00)
[2022-01-25] MEDS: FEXOFENADINE HCL 180 MG TAB PO PRN (08:00)
[2022-01-25] MEDS: METOPROLOL TARTRATE 25 MG TAB PO SCH (08:00)
[2022-01-25] MEDS: PANTOprazole 40 MG TAB PO SCH (08:01)
[2022-01-25] MEDS: CLOPIDOGREL BISULFATE 75 MG TAB PO SCH (08:01)
[2022-01-25] MEDS: amLODIPine BESYLATE 5 MG TAB PO SCH (08:01)
[2022-01-25] MEDS: FAMOTIDINE 40 MG TABLET PO SCH (08:01)
[2022-01-25] MEDS: INSULIN ASPART PER UNIT SC SCH (08:08)
[2022-01-25] MEDS: INSULIN GLARGINE SOLOSTAR 100 UNITS/ML 3 ML PEN SC SCH (08:08)
[2022-01-25] MEDS ORDERED: STROKE PATIENT DISCHARGE STA (11:32)
--- NOTE | 2022-01-25 11:34 | Discharge Summary ---
Date of Service January 25, 2022 Admission HPI Per Admitting Provider Patient is 66 y/o F with PMH CAD, NSTEMI, VÍCTOR TO LAD 2020, DM, HTN, dyslipidemia, MELAS (mitochondrial encephalopathy, lactic acidosis, stroke), GERD, Schatzki ring presented to ER with complaint of GRIMES x 3 days and AMS. Limited history obtained from patient secondary to altered mental status. History assisted from patient's son. Patient with history of hospitalization 01/14/2022-01/15/2022 for chest pain and was discharged home with consideration of outpatient stress test. Patient son reports patient denied any headache upon discharge. He states 3 days ago patient was complaining of headache, the following day denied any headache. Yesterday reports onset of headache again and son had noted patient seemed confused, she was having trouble using and balancing her checkbook. He wanted to bring patient to ER last night however patient refused. Reports today patient woke up continue to complain of headache and she was increasingly confused and was brought to ER. Patient son does report patient under stress with recent of her daughter. Patient son states patient had reported some dizziness with ambulation to bathroom. He denies any known falls. He has been staying with patient since her last h ospital discharge. Reports patient past couple days has been not wanting to eat and he has been encouraging her to eat and drink. Denies any known fever, chills. Son denies any noted vomiting, syncope. Patient has been reporting she has been feeling cold, which son reports is not abnormal for her. Unable to fully obtain ROS as patient does not understand the questions. When asked if she has any vision changes she reports "I do not know". Patient unsure if she has any paresthesias or extremity weakness however does report that she can stand. Patient with episode of altered mental status fall 2020 and was started on Plavix. Admission Exam Per Admitting Provider General: no acute distress, WDWN Head: normocephalic, atraumatic Eyes: PERRL, EOM's intact, conjunctiva non-injected, anicteric ENT:+hard of hearing, normal inspection external ears, nose, mucous membranes mildly dry Neck: supple, trachea midline Lungs: clear, no respiratory distress, no wheezing/rhonchi/rales CV: RRR, no murmur, no pretibial edema Abd: normal BS, soft, non-tender Ext: no cyanosis, no calf tenderness Neuro: Alert, knows her name, month and year and her son who accompanies her today. Does not know date. Knows at [facility]. Facial sensation is intact and symmetric, face is strong and symmetric, Soft palate elevates symmetrically, no dysarthria, Shoulder shrug intact, Tongue is midline, normal movement, no fasciculations, strong and equal bilateral cabinet builder strength, bilateral lower and upper extremities 5/5 strength. Skin: warm, dry Principal Diagnosis Acute left MCA infarction due to ischemia Mitochondrial encephalomyelopathy, lactic acidosis and strokelike episodes (MELAS) Coronary artery disease Statin intolerance Diabetes mellitus type 1 Discharge Exam CONSTITUTIONAL: WNWD, vitals as above, generally well-appearing, NAD EYES: normal conjunctivae, normal sclerae ENT: external ear and nose normal, MMM NECK: trachea midline, RESPIRATORY: clear to auscultation bilaterally, no crackles, rales or wheezes, normal respiratory effort CARDIOVASCULAR: regular rate and rhythm, S1 and 2 heard without murmurs, gallops or rubs, no JVD, no peripheral edema, CHEST: inspection of chest was normal GASTROINTESTINAL: soft, nontender, ND, no guarding MUSCULOSKELETAL: strength 5/5 throughout, head is normocephalic and atraumatic, neck supple, normal palpation of chest wall without tenderness SKIN: warm and dry, no rashes NEUROLOGIC: No facial palsy, no dysarthria. CN 2-12 grossly intact, no sensory deficit, normal cognition, normal speech, no tremor, +receptive aphasia. PSYCHIATRIC: alert but uncooperative as she cannot understand any instruction. Uncertain orientation as she is unable to accurately answer these questions. She doesn't appear to understand the question. Euthymic mood, makes good eye contact, language grossly intact Discharge Data Allergies Allergy/AdvReac Type Severity Reaction Status Date / Time atorvastatin AdvReac Intermediate myalgias, Verified 01/14/22 17:13 dysarthria prednisone AdvReac Intermediate metabolic-h Verified 01/14/22 17:13 yperglycemi a Consultations 01/19/22 17:08 ED Decision to Admit Stat 01/20/22 08:00 Consult Neurology Routine Ordered Studies Laboratory Results WBC 11.42 K/uL (4.8-10.8) H 01/20/22 03:26 RBC 4.56 M/uL (4.2-5.4) 01/20/22 03: Hgb 13.3 g/dL (12.0-16.0) 01/20/22 03: Hct 39.5 % (37-47) 01/20/22 03: MCV 86.6 fL (80-100) 01/20/22 03: MCH 29.2 pg (25-34) 01/20/22 03: MCHC 33.7 g/dL (32-36) 01/20/22 03: RDW Std Deviation 41.3 fL (36.4-46.3) 01/20/22 03: RDW Coeff of Marj 13.1 % (11.5-14.5) 01/20/22 03: Plt Count 332 K/uL (130-400) 01/20/22 03: MPV 10.6 fL (7.4-10.4) H 01/20/22 03: Immature Gran % (Auto) 0.2 % 01/19/22 14:20 Neut % (Auto) 62.1 % 01/19/22 14:20 Lymph % (Auto) 28.4 % 01/19/22 14:20 [place] % (Auto) 7.3 % 01/19/22 14:20 Eos % (Auto) 1.5 % 01/19/22 14:20 Baso % (Auto) 0.5 % 01/19/22 14:20 Neut # (Auto) 6.17 K/uL (1.4-6.5) 01/19/22 14:20 Lymph # (Auto) 2.83 K/uL (1.2-3.4) 01/19/22 14:20 [place] # (Auto) 0.73 K/uL (0.11-0.59) H 01/19/22 14:20 Eos # (Auto) 0.15 K/uL (0-0.5) 01/19/22 14:20 Baso # (Auto) 0.05 K/uL (0-0.2) 01/19/22 14:20 Immature Gran # (Auto) 0.02 K/uL (0.00-0.02) 01/19/22 14:20 RBC Morphology Unremarkable 01/19/22 14:20 PT 11.2 Seconds (9.0-12.0) 01/19/22 15:19 INR 1.1 (0.9-1.1) 01/19/22 15:19 APTT 28.2 Seconds (21.0-31.0) 01/19/22 15:19 PTT Ratio 1.1 01/19/22 15:19 Sodium 138 mmol/L (136-145) 01/20/22 03:26 Potassium 3.9 mmol/L (3.5-5.1) 01/20/22 03:26 Chloride 104 mmol/L (98-107) 01/20/22 03:26 Carbon Dioxide 24 mmol/L (21-32) 01/20/22 03:26 Anion Gap 10 (3-11) 01/20/22 03:26 BUN 20 mg/dl (6-23) 01/20/22 03:26 Creatinine 0.55 mg/dl (0.6-1.2) L 01/20/22 03:26 Est Cr Clr Drug Dosing 85.4 ml/min 01/20/22 03:26 Est GFR ( Amer) 114.1 ml/min 01/20/22 03:26 Est GFR (Non-Af Amer) 98.4 ml/min 01/20/22 03:26 BUN/Creatinine Ratio 36.4 (10-20) H 01/20/22 03:26 Glucose 61 mg/dl (70-99(Fasting)) L 01/20/22 03:26 POC Glucose 75 mg/dl (70-99) 01/25/22 07:31 Calcium 9.3 mg/dl (8.5-10.1) 01/20/22 03:26 Magnesium 1.8 mg/dl (1.7-2.4) 01/19/22 15:18 Total Bilirubin 0.7 mg/dl (0.2-1.0) 01/19/22 14:20 AST 21 U/L (13-39) 01/19/22 14:20 ALT 14 U/L (7-52) 01/19/22 14:20 Alkaline Phosphatase 67 U/L (34-104) 01/19/22 14:20 Troponin I 0.05 ng/ml (0-0.04) H* 01/20/22 03:26 Total Protein 7.9 gm/dl (6.0-8.3) 01/19/22 14:20 Albumin 4.7 gm/dl (3.4-5.0) 01/19/22 14:20 Globulin 3.2 gm/dl (2.5-4.0) 01/19/22 14:20 Albumin/Globulin Ratio 1.5 (0.9-2) 01/19/22 14:20 Urine Color Yellow 01/19/22 Unknown Urine Appearance Clear (Clear) 01/19/22 Unknown Urine pH 5.5 (4.5-7.5) 01/19/22 Unknown Ur Specific [place] > 1.045 (1.000-1.030) H 01/19/22 Unknown Urine Protein Negative (Negative) 01/19/22 Unknown Urine Glucose (UA) Negative (Negative) 01/19/22 Unknown Urine Ketones 1+ (Negative) H 01/19/22 Unknown Urine Blood Negative (Negative) 01/19/22 Unknown Urine Nitrite Negative (Negative) 01/19/22 Unknown Urine Bilirubin Negative (Negative) 01/19/22 Unknown Urine Urobilinogen Negative (Negative) 01/19/22 Unknown Ur Leukocyte Esterase 1+ (Negative) H 01/19/22 Unknown Urine WBC (Auto) >30 /hpf (0-5) H 01/19/22 Unknown Urine RBC (Auto) 0-4 /hpf (0-4) 01/19/22 Unknown U Hyaline Cast (Auto) 1-5 /lpf (0-5) 01/19/22 Unknown U Epithel Cells (Auto) >30 /lpf (0-5) H 01/19/22 Unknown Urine Bacteria (Auto) Negative (Negative) 01/19/22 Unknown SARS-CoV-2, RNA, NAAT NEGATIVE (NEGATIVE) 01/19/22 16:55 Blood Type O Positive 01/19/22 15:19 Antibody Screen NEGATIVE 01/19/22 15:19 Impressions Head CTA 01/19/22 14:46 HEAD AND NECK CTA HISTORY: Confusion. Stroke Like Symptoms TECHNIQUE: Multiaxial CT images of the head and neck were performed following the intravenous administration of contrast to evaluate the major cerebral vessels. Maximum intensity projection images were also obtained. A dose lowering technique was utilized adhering to the principles of ALARA. COMPARISON: Head CT 01/19/2022. Head and neck CTA 08/10/2021.. FINDINGS: Head CTA: Visualized intracranial distal vertebral arteries, and basilar artery are widely patent. There is no significant stenosis, occlusion, or aneurysm seen within the bilateral ACAs, MCAs, or tube mounter. The major dural venous sinuses are patent. A left cochlear implant is again noted. Moderate right and mild left focal stenosis within the supraclinoid ICAs. This remains unchanged. Neck CTA: Mild calcified plaque within the right carotid bifurcation. No significant stenosis, occlusion, or dissection within the bilateral common carotid, internal carotid, or vertebral arteries. IMPRESSION: 1. No change compared to the prior study. 2. No significant stenosis, occlusion, or aneurysm within the bilateral ACAs, MCAs, tube mounter. 3. Moderate right and mild left focal stenosis within the supraclinoid ICAs. 4. No significant stenosis, occlusion, or dissection within the cervical carotid or vertebral arteries. ACT 112: Negative or not required by law. Electronically signed by: Caleb Pace M.D. 01/19/2022 4:08 PM Neck CTA 01/19/22 14:46 HEAD AND NECK CTA HISTORY: Confusion. Stroke Like Symptoms TECHNIQUE: Multiaxial CT images of the head and neck were performed following the intravenous administration of contrast to evaluate the major cerebral vessels. Maximum intensity projection images were also obtained. A dose lowering technique was utilized adhering to the principles of ALARA. COMPARISON: Head CT 01/19/2022. Head and neck CTA 08/10/2021.. FINDINGS: Head CTA: Visualized intracranial distal vertebral arteries, and basilar artery are widely patent. There is no significant stenosis, occlusion, or aneurysm seen within the bilateral ACAs, MCAs, or tube mounter. The major dural venous sinuses are patent. A left cochlear implant is again noted. Moderate right and mild left focal stenosis within the supraclinoid ICAs. This remains unchanged. Neck CTA: Mild calcified plaque within the right carotid bifurcation. No significant stenosis, occlusion, or dissection within the bilateral common carotid, internal carotid, or vertebral arteries. IMPRESSION: 1. No change compared to the prior study. 2. No significant stenosis, occlusion, or aneurysm within the bilateral ACAs, MCAs, tube mounter. 3. Moderate right and mild left focal stenosis within the supraclinoid ICAs. 4. No significant stenosis, occlusion, or dissection within the cervical carotid or vertebral arteries. ACT 112: Negative or not required by law. Electronically signed by: Caleb Pace M.D. 01/19/2022 4:[address] 01/20/22 16:31 CT OF THE HEAD WITHOUT CONTRAST CLINICAL HISTORY: repeat out of concern for artifact vs stroke COMPARISON STUDY: Head CT and CTA of the head January 19, 2022. CT DOSE: 614.27 mGy.cm TECHNIQUE: Helical axial images of the head were obtained without IV contrast. Automated exposure control was utilized for the study. A dose lowering technique was utilized adhering to the principles of ALARA. FINDINGS: This exam is compromised by streak artifact from a left cochlear implant. Note is again made of a 5.5 cm hypodensity within the left temporal lobe. This is similar to head CT of January 19, 2022. Acute infarct is favored. However, artifact could appear similar. There is no mass effect. There is no hemorrhage. Ventricular systems. Basal cisterns are patent. Atrophy is present. White matter hypodensity suggests small vessel disease. As before, left mastoid air cells are partially opacified. There is no calvarial fracture. IMPRESSION: 1. No acute intracranial hemorrhage. No significant mass effect. 2. No significant change in a 5.5 cm hypodensity within the left temporal lobe. An acute infarct is favored however artifact from the cochlear implant could appear similar. ACT 112: Negative or not required by law. Electronically signed by: Toby Caraballo M.D. 01/20/2022 5:33 PM Hospital Course (1) Acute stroke due to ischemia: Left MCA infarction, possibly related to mitochondrial encephalomyopathy, lactic acidosis and stroke-like episodes vs other etiologies. She has vascular risk factors and known vascular disease. MRI cannot be performed secondary to cochlear implant however, CT of the head with out contrast revealed a 5.6 cm hypodensity within the left temporal rub. With her ongoing receptive aphasia this may correspond to the Wernicke's area of the brain and likely represents an acute ischemic stroke. Continue dual antiplatelet therapy for now. Additionally, patient does not appear infected and will there are no indications of infection at this time including no white count fevers chills or ill appearance to the patient. Cefepime was stopped. Known statin intolerance so we will avoid this. Seen by speech therapy (FLOOR SUPERVISOR) this admission and no issues with swallowing acutely, however, may benefit from outpatient rehabilitative FLOOR SUPERVISOR intervention. SNF recommended by therapy daryn. A bubble study was ordered and was negative for intracardial shunt. Will recommend Zio patch as outpatient. Genetic testing as outpatient recommended to confirm dx of MELAS and consider L-arginine supplementation 1000mg BID which may help to prevent stroke in this case. (2) CAD (coronary artery disease): (3) Statin intolerance: (4) Underweight: (5) Moderate protein-calorie malnutrition: MELAS (mitochondrial encephalopathy, lactic acidosis, stroke) Continue aspirin, Plavix. Arginine supplementation recommended per neurology. Will recommend to start after discharge as not on formulary here. CAD H/O history cardiac cath at [facility] 05/16/2020: VÍCTOR to proximal LAD, subtotal occlusion of RPDA branch of the distal right coronary artery supplied with [id number] collaterals, treated medically, not amendable to revascularization. Had recurrent angina which prompted a nuclear stress test in 11/2020 that was abnormal. Repeat cardiac cath at [facility] 12/12/2020: Patent LAD stent, distal RPDA stenosis again observed with [id number] collaterals unchanged Admission 01/15/22-01/16/22 for CP. At that time had troponin: 0.05 no acute EKG changes, was thought secondary to demand ischemia and tachycardia. Had CTA chest negative for PE. Suggested to have outpatient stress test. Would hold off until more stable post acute stroke but defer to PCP. Recent echo on 01/15 revealed no acute wall motion abnormality. Had lipid panel 01/15/22. Is not candidate for statin appears stable, Continue aspirin, metoprolol tartrate, Plavix, Repatha, Nexletol DM I A1c: 8.1 on 01/15/22 Currently at [facility], Continue home Lantus NovoLog sliding scale per protocol HTN chronic, controlled, continue amlodipine, metoprolol tartrate per home regimen. GERD chronic, stable, Continue PPI per home regimen. DVT Prophylaxis SCDs Full Code Dispo-discharged in stable condition to SNF. Care plan discussed with her son. DO Micheal Rubio Hospitalist Total Time Total Time Spent Total Time Spent (In Minutes): 60 Discharge Plan Discharge Items Patient Disposition: Transfer Inpatient Rehab Fac Reason For Visit: AMS Discharge Diagnosis: Acute left MCA infarction due to ischemia Mitochondrial encephalomyelopathy, lactic acidosis and strokelike episodes (MELAS) Coronary artery disease Statin intolerance Diabetes mellitus type 1 Condition on Discharge: Good Activity: Resume your previous activity Non-emergency contact: Primary Care Provider Call non-emergency contact if: you have any medication questions, your symptoms worsen, your pain is not controlled, your pain is worsening, your pain is unusual for you, your pain is concerning for you and you have a fever Follow-up/Referrals: Amairani Boyd MD [Primary Care Provider] - Diet: Carb Count or DM1 Addtl Attending Provider Instructions: Please take all medications as instructed on discharge list below. L-arginine supplementation at 1000mg oral twice dialy is recommended as a trial per Neurology. There is anecdotal evidence this may prevent strokes moving forward. Additionally, consideration of an additional statin trial is recommended, however, given patient's current mental status, would defer this trial to primary care. Please follow up with your primary care provider within 1 week of hospital discharge. A event monitor is recommended for completeness of workup for stroke to rule out occult arrhythmia. This may be ordered by primary care. A follow-up with [facility] is recommended in 4-6 weeks for follow-up of stroke. It was a pleasure taking care of you! Please call if you have any questions or problems. You can reach a [facility] hospitalist on duty at [facility] 24 hours a day by calling [phone]. Take care of yourself. Laney Murcia, [facility] Center[facility] Pending Studies at Discharge: No Stand-Alone Forms: My [facility] Skilled Items Patient informed of condition?: Yes DNR: No Discharge Level of Care: Acute rehab Communicable Disease: No Discharge Prognosis: Stable Lines: None Urinary Catheter: No Medications and DC Order Prescriptions: Continued insulin aspart U-100 [Novolog Flexpen U-100 Insulin] 100 unit/mL (3 mL) insulin pen 2 - 4 unit SUBCUT TIDM RF: 0 Lantus Solostar U-100 Insulin 100 unit/mL (3 mL) Insulin Pen 30 unit SUBCUT PM RF: 0 Lipotriad Vision Support 12,500 unit- 12.5 mg Capsule 1 cap PO QAM RF: 0 metoprolol tartrate 25 mg Tablet 25 mg PO BID Qty: 60 RF: 2 nitroglycerin [Nitrostat] 0.4 mg Tablet, Sublingual 0.4 mg sublingual UD PRN (Reason: chest pain) Qty: 30 RF: 1 aspirin 81 mg Tablet,Delayed Release (Dr/Ec) 81 mg PO QAM Qty: 90 RF: 1 famotidine 40 mg tablet 40 mg PO DAILY RF: 0 amlodipine 2.5 mg tablet 2.5 mg PO DAILY RF: 0 fexofenadine 180 mg Tablet 180 mg PO DAILY PRN (Reason: SEASONAL ALLERGIES) RF: 0 lorazepam 0.5 mg tablet 0.5 mg PO Q6H PRN (Reason: Anxiety) RF: 0 hydrocortisone-acetic acid 1-2 % Drops 3 drp OTIC (EAR) BID PRN (Reason: ITCHY EARS) RF: 0 Repatha SureClick 140 mg/mL pen injector 140 mg SUBCUT .[id number] RF: 0 clopidogrel 75 mg Tablet 75 mg PO QAM Qty: 30 RF: 0 pantoprazole 20 mg Tablet,Delayed Release (Dr/Ec) 20 mg PO DAILY RF: 0 coenzyme Q10 [CoQ-10] 100 mg Capsule 100 mg PO DAILY RF: 0 Nexletol 180 mg Tablet 180 mg PO DAILY RF: 0 Discharge Orders: Discharge Order (Routine); Ordered 01/25/22 Ordered By: Laney Murcia Admission Data Admit Date/Time: 01/20/22 16:22 Attending Provider: Laney Murcia Admit Provider: José Luis Erickson Primary Care Provider: Amairani Boyd Other Providers: [facility] ; [facility] ; [facility] ; José Luis Erickson ; Marquez Larsen Other Interventions: Discharge Summary Assessment (RN) Last Done: 01/25/22 11:35
== END 2022-01-25 11:42 | DRG 65 ==
LOC: ED 13:18 → 2N 13:18 → SUATTDRO 17:45 → 2N 19:27

== ENCOUNTER 2022-07-23 18:36 | Observation (INO) ==
[2022-07-23] MEDS ORDERED: SODIUM CHLORIDE 0.9% 1000ML 500 ML IV ONE (18:53)
--- NOTE | 2022-07-23 18:53 | Emergency Department Note ---
Impression & Plan Acute confusion, AMS (altered mental status), Weakness, Anemia ED Provider Note NAME: WINNIE DONG AGE: 66 SEX: F : 1955 ARRIVES VIA: Ambulance INFORMANT: Patient ED PROVIDER(S): Juanpablo Martinez DO CHIEF COMPLAINT: AMS HPI: Patient is a 66-year-old female who presents the ER for confusion. Past medical history includes CAD, altered mental status, CVA, HLD, DM, and NSTEMI. This all occurred suddenly while she was eating dinner with her sister. Patient denies any headache or change in vision. No chest pain or shortness of breath. No nausea, vomiting, or diarrhea. She admits that she does feel confused. No dysuria, urgency, or frequency. No other exacerbating or remitting factors. ROS: See above HPI for pertinent positives & negatives. A total of 10 systems reviewed and were otherwise negative. PAST MEDICAL HISTORY:See Below PAST SURGICAL HISTORY:See Below FAMILY HISTORY:See Below SOCIAL HISTORY:See Below HOME MEDICATIONS:See Below ALLERGIES:See Below VITALS:See Below PHYSICAL EXAMINATION: GENERAL: Sitting up in bed, alert, confused, disheveled, cachectic EYE EXAM: normal conjunctiva. PERRL and EOM's grossly intact. OROPHARYNX: no exudate, no erythema, lips, buccal mucosa, and tongue normal and mucous membranes are moist NECK: supple, no nuchal rigidity, no adenopathy, non-tender LUNGS: Clear to auscultation. Normal chest wall mechanics HEART: no murmurs, S1 normal and S2 normal ABDOMEN: abdomen soft, non-tender, normo-active bowel sounds, no masses, no rebound or guarding. BACK: Back is symmetrical on inspection and there is no deformity, no midline tenderness, no CVA tenderness. SKIN: no rashes and no bruising UPPER EXTREMITIES: upper extremities are grossly normal. LOWER EXTREMITIES: No pitting edema. NEURO EXAM: To person and place but slurring words and slightly confused, cranial nerves II-XII intact, normal speech, no weakness of arms, no weakness of legs. No drift. Unable to perform [id number] due to mentation MEDICAL DECISION MAKING: Patient is a 66-year-old female who presents ER for confusion. IV was established blood work was obtained. Labs show mild anemia at 11.4 with a baseline of 12-13. INR unremarkable. VBG with a pH is 7.43. BMP on LFTs bilirubin was unremarkable for slightly elevated glucose. Troponin was negative. Ammonia and TSH were unremarkable. UA was negative. COVID was negative. CT of the head and neck as well as CTAs were unremarkable. Chest x- ray was nondiagnostic. Patient was given IV fluids updated bedside discussed with hospitalist for further evaluation. Triage Nursing notes reviewed. Limited review of prior medical records performed Vital Signs: reviewed and remarkable for no significant abnormalities Differential diagnosis: Differential diagnoses includes but is not limited to toxic, metabolic, infectious, traumatic, cardiac, neurologic, hematologic, psychiatric and inflammatory etiologies. ER treatment provided: See below Diagnostics interpreted by me: ECG: Sinus rhythm rate 85 Left axis No PVCs Septal Q waves QTC 435 Cardiac Monitoring: An order was placed for continuous cardiac monitoring. The monitor shows a rate of 80 with sinus rhythm. Laboratory studies: As stated above and show below. Imaging studies: CTA of the head and neck was negative Chest x-ray unremarkable Consultation(s): With Dr. Ronen Prince for further evaluation Procedures: none Critical Care: None Past Med/Surg History Medical History (Updated 07/24/22 @ 00:02 by Juanpablo Martinez DO) Atherosclerosis of coronary artery CAD (coronary artery disease) History of TIA (transient ischemic attack) HLD (hyperlipidemia) Hypertension Macular degeneration MELAS (mitochondrial encephalopathy, lactic acidosis and stroke-like episodes) Mnire's disease Schatzki's ring Statin intolerance Type 1 diabetes mellitus Surgical History History of cholecystectomy History of cochlear implant Left in 2014 History of colonoscopy with polypectomy History of heart artery stent History of hysterectomy History of left heart catheterization 07/2019 which revealed 30% proximal LAD otherwise clean coronaries Family History Mother Coronary heart disease, Onset Age: 70 Father Coronary heart disease, Onset Age: 50 Social History Smoking Status: Unknown if ever smoked Second Hand Exposure: No; Hx Alcohol Use: No Hx Substance Use: No Preferred Language: Turkmen Communication Ability: Impaired 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 Beliefs That Will Affect Care: None marital status: Current Living Situation: Family Current Living Situation Comment: SON LIVES WITH PATIENT current occupational status: retired and disabled How many Children do You have: 2 Feels Safe at Home: Yes Assistive Devices: Hearing Aid - Bilateral Allergies Allergies Allergy/AdvReac Type Severity Reaction Status Date / Time atorvastatin AdvReac Intermediate myalgias, Verified 07/23/22 20:59 dysarthria prednisone AdvReac Intermediate metabolic-h Verified 07/23/22 20:59 yperglycemi a Home Meds Home Medications Medication Instructions Recorded Confirmed insulin aspart U-100 100 unit/mL 2 - 4 unit subcut TIDM 05/14/20 07/23/22 (3 mL) subcutaneous pen (Novolog Flexpen U-100 Insulin aspart) insulin glargine 100 unit/mL (3 30 unit subcut PM 05/14/20 07/23/22 mL) subcutaneous pen (Lantus Solostar U-100 Insulin) vit A 12,500 unit-zinc 12.5 1 cap PO QAM 05/14/20 07/23/22 [id number] #261 capsule (Lipot[employer] Support) amlodipine 2.5 mg tablet 2.5 mg PO DAILY 08/10/21 07/23/22 evolocumab 140 mg/mL subcutaneous 140 mg subcut .[id number] 08/10/21 07/23/22 pen injector (Jaime Nicholson) famotidine 40 mg tablet 40 mg PO DAILY 08/10/21 07/23/22 fexofenadine 180 mg tablet 180 mg PO DAILY PRN SEASONAL 08/10/21 07/23/22 ALLERGIES hydrocortisone-acetic acid 1 %-2 % 3 drp otic (ear) BID PRN ITCHY EARS 08/10/21 07/23/22 ear drops lorazepam 0.5 mg tablet 0.5 mg PO Q6H PRN Anxiety 08/10/21 07/23/22 bempedoic acid 180 mg tablet 180 mg PO DAILY 01/14/22 07/23/22 (Nexletol) coenzyme Q10 100 mg capsule 100 mg PO DAILY 01/14/22 07/23/22 (CoQ-10) pantoprazole 20 mg tablet,delayed 20 mg PO DAILY 01/14/22 07/23/22 release Previous Rx's Medication Instructions Recorded aspirin 81 mg tablet,delayed 81 mg PO QAM #90 tabs 05/17/20 release metoprolol tartrate 25 mg tablet 25 mg PO BID #60 tabs 05/17/20 nitroglycerin 0.4 mg sublingual 0.4 mg sublingual UD PRN chest 05/17/20 tablet (Nitrostat) pain #30 tabs Results & Data (ED) Vital Signs Vital Signs - 24 hr 07/23/22 18:36 07/23/22 19:58 07/23/22 21:18 Temperature 36.8 C Temperature Source Oral Pulse Rate 91 H Pulse Rate [Right Finger] 89 77 Respiratory Rate 18 15 20 Respiratory Effort / Characteristics Non-Labored Non-Labored Non-Labored Respiratory Depth Normal Normal Normal Respiratory Pattern Regular Blood Pressure 106/73 Blood Pressure [Right Arm] 106/73 106/73 Blood Pressure Mean 84 Blood Pressure Mean [Right Arm] 84 84 Pulse Oximetry 99 97 98 Oxygen Delivery Method Room Air Sepsis Recent Fever Within 48 Hours No Sepsis New/Unexplained Change in Mental Status Yes Sepsis Action Taken by Nursing No Action Required 07/23/22 23:04 Temperature Temperature Source Pulse Rate Pulse Rate [Right Finger] 93 H Respiratory Rate 16 Respiratory Effort / Characteristics Non-Labored Respiratory Depth Normal Respiratory Pattern Blood Pressure Blood Pressure [Right Arm] Blood Pressure Mean Blood Pressure Mean [Right Arm] Pulse Oximetry 98 Oxygen Delivery Method Room Air Sepsis Recent Fever Within 48 Hours Sepsis New/Unexplained Change in Mental Status Sepsis Action Taken by Nursing Laboratory Data Result diagrams: 07/23/22 18:43 07/23/22 18:43 Lab Results 07/23/22 07/23/22 07/23/22 Range/Units 18:43 18:43 18:43 WBC 7.86 (4.8-10.8) K/ul RBC 3.93 (3.93-5.22) M/uL Hgb 11.4 L (12.0-16.0) g/dl POC Hgb (12.0-16.0) g/dl Hct 33.8 L (34.1-44.9) % POC Hct (37-47) % MCV 86.0 (80.0-100.0) fL MCH 29.0 (25.0-34.0) pg MCHC 33.7 (32.0-36.0) g/dL RDW Std Deviation 39.3 (36.4-46.3) fL RDW Coeff of Marj 12.4 (11.5-14.5) % Plt Count 284 (130-400) K/uL MPV 11.3 (9.4-12.3) fL Immature Gran % (Auto) 0.3 % Neut % (Auto) 55.8 % Lymph % (Auto) 32.7 % [place] % (Auto) 7.5 % Eos % (Auto) 2.4 % Baso % (Auto) 1.3 % Neut # (Auto) 4.39 (1.4-6.5) K/uL Lymph # (Auto) 2.57 (1.2-3.4) K/uL [place] # (Auto) 0.59 (0.24-0.82) K/uL Eos # (Auto) 0.19 (0-0.50) K/uL Baso # (Auto) 0.10 (0-0.2) K/uL Immature Gran # (Auto) 0.02 (0.00-0.02) K/uL PT 11.4 (9.0-12.0) Seconds INR 1.1 (0.9-1.1) APTT 27.1 (21.0-31.0) Seconds PTT Ratio 1.0 VBG pH (7.36-7.41) VBG pCO2 (38-50) mmHg VBG pO2 mmHg VBG HCO3 mmol/L VBG O2 Saturation % VBG Base Excess mEq/L POC Sodium (135-144) mmol/L Sodium 137 (136-145) mmol/L POC Potassium (3.3-5.0) mmol/L Potassium 4.3 (3.5-5.1) mmol/L POC Chloride (101-112) mmol/L Chloride 101 (98-107) mmol/L Carbon Dioxide 26 (21-32) mmol/L POC Total CO2 (24-31) mmol/L Anion Gap 10 (3-11) POC Anion Gap (16-25) mmol/L POC BUN (7-18) mg/dl BUN 21 (6-23) mg/dl Creatinine 1.08 (0.6-1.2) mg/dl POC Creatinine (0.6-1.3) mg/dl Est Cr Clr Drug Dosing Not Reportable Est GFR ( Amer) 62.4 ml/min Est GFR (Non-Af Amer) 53.8 ml/min BUN/Creatinine Ratio 19.4 (10-20) Glucose 185 H (70-99(Fasting)) mg/dl POC Glucose (70-99) mg/dl POC Glucose (other) (70-99) mg/dl Calcium 9.2 (8.5-10.1) mg/dl POC Ioniz Calcium Daily (1.12-1.32) mmol/l Magnesium 1.8 (1.7-2.4) mg/dl Total Bilirubin 0.3 (0.2-1.0) mg/dl AST 15 (13-39) U/L ALT 10 (7-52) U/L Alkaline Phosphatase 62 (34-104) U/L Ammonia (18-72) umol/L Troponin I High Sens 14.7 H (0-14) pg/ml Total Protein 7.3 (6.0-8.3) gm/dl Albumin 4.4 (3.4-5.0) gm/dl Globulin 2.9 (2.5-4.0) gm/dl Albumin/Globulin Ratio 1.5 (0.9-2) TSH (0.300-4.500) uIu/ml Urine Color Urine Appearance (Clear) Urine pH (4.5-7.5) Ur Specific [place] (1.000-1.030) Urine Protein (Negative) Urine Glucose (UA) (Negative) Urine Ketones (Negative) Urine Blood (Negative) Urine Nitrite (Negative) Urine Bilirubin (Negative) Urine Urobilinogen (Negative) Ur Leukocyte Esterase (Negative) SARS-CoV-2, RNA, NAAT (NEGATIVE) 07/23/22 07/23/22 07/23/22 Range/Units 18:43 18:50 18:55 WBC (4.8-10.8) K/ul RBC (3.93-5.22) M/uL Hgb (12.0-16.0) g/dl POC Hgb 12.2 (12.0-16.0) g/dl Hct (34.1-44.9) % POC Hct 36 L (37-47) % MCV (80.0-100.0) fL MCH (25.0-34.0) pg MCHC (32.0-36.0) g/dL RDW Std Deviation (36.4-46.3) fL RDW Coeff of Marj (11.5-14.5) % Plt Count (130-400) K/uL MPV (9.4-12.3) fL Immature Gran % (Auto) % Neut % (Auto) % Lymph % (Auto) % [place] % (Auto) % Eos % (Auto) % Baso % (Auto) % Neut # (Auto) (1.4-6.5) K/uL Lymph # (Auto) (1.2-3.4) K/uL [place] # (Auto) (0.24-0.82) K/uL Eos # (Auto) (0-0.50) K/uL Baso # (Auto) (0-0.2) K/uL Immature Gran # (Auto) (0.00-0.02) K/uL PT (9.0-12.0) Seconds INR (0.9-1.1) APTT (21.0-31.0) Seconds PTT Ratio VBG pH (7.36-7.41) VBG pCO2 (38-50) mmHg VBG pO2 mmHg VBG HCO3 mmol/L VBG O2 Saturation % VBG Base Excess mEq/L POC Sodium 139 (135-144) mmol/L Sodium (136-145) mmol/L POC Potassium 4.4 (3.3-5.0) mmol/L Potassium (3.5-5.1) mmol/L POC Chloride 101 (101-112) mmol/L Chloride (98-107) mmol/L Carbon Dioxide (21-32) mmol/L POC Total CO2 24 (24-31) mmol/L Anion Gap (3-11) POC Anion Gap 19.0 (16-25) mmol/L POC BUN 20 H (7-18) mg/dl BUN (6-23) mg/dl Creatinine (0.6-1.2) mg/dl POC Creatinine 1.1 (0.6-1.3) mg/dl Est Cr Clr Drug Dosing Est GFR ( Amer) ml/min Est GFR (Non-Af Amer) ml/min BUN/Creatinine Ratio (10-20) Glucose (70-99(Fasting)) mg/dl POC Glucose (70-99) mg/dl POC Glucose (other) 197 H (70-99) mg/dl Calcium (8.5-10.1) mg/dl POC Ioniz Calcium Daily 1.17 (1.12-1.32) mmol/l Magnesium (1.7-2.4) mg/dl Total Bilirubin (0.2-1.0) mg/dl AST (13-39) U/L ALT (7-52) U/L Alkaline Phosphatase (34-104) U/L Ammonia (18-72) umol/L Troponin I High Sens (0-14) pg/ml Total Protein (6.0-8.3) gm/dl Albumin (3.4-5.0) gm/dl Globulin (2.5-4.0) gm/dl Albumin/Globulin Ratio (0.9-2) TSH 1.658 (0.300-4.500) uIu/ml Urine Color Yellow Urine Appearance Clear (Clear) Urine pH 7.5 (4.5-7.5) Ur Specific [place] 1.014 (1.000-1.030) Urine Protein Negative (Negative) Urine Glucose (UA) Negative (Negative) Urine Ketones Negative (Negative) Urine Blood Negative (Negative) Urine Nitrite Negative (Negative) Urine Bilirubin Negative (Negative) Urine Urobilinogen Negative (Negative) Ur Leukocyte Esterase Negative (Negative) SARS-CoV-2, RNA, NAAT (NEGATIVE) 07/23/22 07/23/22 07/23/22 Range/Units 19:20 19:29 19:29 WBC (4.8-10.8) K/ul RBC (3.93-5.22) M/uL Hgb (12.0-16.0) g/dl POC Hgb (12.0-16.0) g/dl Hct (34.1-44.9) % POC Hct (37-47) % MCV (80.0-100.0) fL MCH (25.0-34.0) pg MCHC (32.0-36.0) g/dL RDW Std Deviation (36.4-46.3) fL RDW Coeff of Marj (11.5-14.5) % Plt Count (130-400) K/uL MPV (9.4-12.3) fL Immature Gran % (Auto) % Neut % (Auto) % Lymph % (Auto) % [place] % (Auto) % Eos % (Auto) % Baso % (Auto) % Neut # (Auto) (1.4-6.5) K/uL Lymph # (Auto) (1.2-3.4) K/uL [place] # (Auto) (0.24-0.82) K/uL Eos # (Auto) (0-0.50) K/uL Baso # (Auto) (0-0.2) K/uL Immature Gran # (Auto) (0.00-0.02) K/uL PT (9.0-12.0) Seconds INR (0.9-1.1) APTT (21.0-31.0) Seconds PTT Ratio VBG pH 7.43 H (7.36-7.41) VBG pCO2 43 (38-50) mmHg VBG pO2 23 mmHg VBG HCO3 29 mmol/L VBG O2 Saturation < 60.0 % VBG Base Excess 3.7 mEq/L POC Sodium (135-144) mmol/L Sodium (136-145) mmol/L POC Potassium (3.3-5.0) mmol/L Potassium (3.5-5.1) mmol/L POC Chloride (101-112) mmol/L Chloride (98-107) mmol/L Carbon Dioxide (21-32) mmol/L POC Total CO2 (24-31) mmol/L Anion Gap (3-11) POC Anion Gap (16-25) mmol/L POC BUN (7-18) mg/dl BUN (6-23) mg/dl Creatinine (0.6-1.2) mg/dl POC Creatinine (0.6-1.3) mg/dl Est Cr Clr Drug Dosing Est GFR ( Amer) ml/min Est GFR (Non-Af Amer) ml/min BUN/Creatinine Ratio (10-20) Glucose (70-99(Fasting)) mg/dl POC Glucose (70-99) mg/dl POC Glucose (other) (70-99) mg/dl Calcium (8.5-10.1) mg/dl POC Ioniz Calcium Daily (1.12-1.32) mmol/l Magnesium (1.7-2.4) mg/dl Total Bilirubin (0.2-1.0) mg/dl AST (13-39) U/L ALT (7-52) U/L Alkaline Phosphatase (34-104) U/L Ammonia 41.0 (18-72) umol/L Troponin I High Sens (0-14) pg/ml Total Protein (6.0-8.3) gm/dl Albumin (3.4-5.0) gm/dl Globulin (2.5-4.0) gm/dl Albumin/Globulin Ratio (0.9-2) TSH (0.300-4.500) uIu/ml Urine Color Urine Appearance (Clear) Urine pH (4.5-7.5) Ur Specific [place] (1.000-1.030) Urine Protein (Negative) Urine Glucose (UA) (Negative) Urine Ketones (Negative) Urine Blood (Negative) Urine Nitrite (Negative) Urine Bilirubin (Negative) Urine Urobilinogen (Negative) Ur Leukocyte Esterase (Negative) SARS-CoV-2, RNA, NAAT NEGATIVE (NEGATIVE) 07/23/22 Range/Units 22:16 WBC (4.8-10.8) K/ul RBC (3.93-5.22) M/uL Hgb (12.0-16.0) g/dl POC Hgb (12.0-16.0) g/dl Hct (34.1-44.9) % POC Hct (37-47) % MCV (80.0-100.0) fL MCH (25.0-34.0) pg MCHC (32.0-36.0) g/dL RDW Std Deviation (36.4-46.3) fL RDW Coeff of Marj (11.5-14.5) % Plt Count (130-400) K/uL MPV (9.4-12.3) fL Immature Gran % (Auto) % Neut % (Auto) % Lymph % (Auto) % [place] % (Auto) % Eos % (Auto) % Baso % (Auto) % Neut # (Auto) (1.4-6.5) K/uL Lymph # (Auto) (1.2-3.4) K/uL [place] # (Auto) (0.24-0.82) K/uL Eos # (Auto) (0-0.50) K/uL Baso # (Auto) (0-0.2) K/uL Immature Gran # (Auto) (0.00-0.02) K/uL PT (9.0-12.0) Seconds INR (0.9-1.1) APTT (21.0-31.0) Seconds PTT Ratio VBG pH (7.36-7.41) VBG pCO2 (38-50) mmHg VBG pO2 mmHg VBG HCO3 mmol/L VBG O2 Saturation % VBG Base Excess mEq/L POC Sodium (135-144) mmol/L Sodium (136-145) mmol/L POC Potassium (3.3-5.0) mmol/L Potassium (3.5-5.1) mmol/L POC Chloride (101-112) mmol/L Chloride (98-107) mmol/L Carbon Dioxide (21-32) mmol/L POC Total CO2 (24-31) mmol/L Anion Gap (3-11) POC Anion Gap (16-25) mmol/L POC BUN (7-18) mg/dl BUN (6-23) mg/dl Creatinine (0.6-1.2) mg/dl POC Creatinine (0.6-1.3) mg/dl Est Cr Clr Drug Dosing Est GFR ( Amer) ml/min Est GFR (Non-Af Amer) ml/min BUN/Creatinine Ratio (10-20) Glucose (70-99(Fasting)) mg/dl POC Glucose 174 H (70-99) mg/dl POC Glucose (other) (70-99) mg/dl Calcium (8.5-10.1) mg/dl POC Ioniz Calcium Daily (1.12-1.32) mmol/l Magnesium (1.7-2.4) mg/dl Total Bilirubin (0.2-1.0) mg/dl AST (13-39) U/L ALT (7-52) U/L Alkaline Phosphatase (34-104) U/L Ammonia (18-72) umol/L Troponin I High Sens (0-14) pg/ml Total Protein (6.0-8.3) gm/dl Albumin (3.4-5.0) gm/dl Globulin (2.5-4.0) gm/dl Albumin/Globulin Ratio (0.9-2) TSH (0.300-4.500) uIu/ml Urine Color Urine Appearance (Clear) Urine pH (4.5-7.5) Ur Specific [place] (1.000-1.030) Urine Protein (Negative) Urine Glucose (UA) (Negative) Urine Ketones (Negative) Urine Blood (Negative) Urine Nitrite (Negative) Urine Bilirubin (Negative) Urine Urobilinogen (Negative) Ur Leukocyte Esterase (Negative) SARS-CoV-2, RNA, NAAT (NEGATIVE) Administered Medications Sodium Chloride (Nss 1000ml) 1,000 mls @ 60 mls/hr IV .[id number] ONE Stop: 07/24/22 16:09 Last Admin: 07/23/22 23:43 Dose: 60 mls/hr Documented By: RILEY Discontinued Medications Sodium Chloride (Nss 1000ml) 500 mls @ 999 mls/hr IV .[id number] ONE Stop: 07/23/22 19:23 Last Infusion: 07/23/22 20:33 Dose: 0 mls/hr Documented By: Admin: 07/23/22 20:01 Dose: 999 mls/hr Documented By: RILEY Insulin Glargine (Lantus Per Unit Charge) 20 units SQ NOW STA Stop: 07/23/22 23:13 Last Admin: 07/23/22 23:36 Dose: 20 units Documented By: RILEY Co-signed By: ROSALBA Ioversol (Optiray 300 500ml) 110 ml IV ONCE ONE Stop: 07/23/22 19:50 Last Admin: 07/23/22 19:52 Dose: 110 ml Documented By: [facility] Imaging Data Radiologist's Impression: Chest X-Ray 07/23/22 18:48 XR chest 1V portable CLINICAL HISTORY: Stroke Like Symptoms TECHNIQUE: Single frontal radiograph of the chest was obtained. Comparison: Comparison is made to chest radiograph 01/14/2022 FINDINGS: No lines and tubes are seen. Calcified aortic knob is seen. The lungs are clear. No evidence of pleural effusion or pneumothorax. IMPRESSION: No acute chest disease. ACT 112: Negative or not required by law. Electronically signed by: Madhu Thomas M.D. 07/23/2022 7:[address] 07/23/22 18:48 CT angio neck with con, CT angio head w con, CT head/brain wo con CLINICAL HISTORY: Stroke Like Symptoms TECHNIQUE: Contiguous axial CT images of the head were acquired from the base of the skull to the vertex without intravenous contrast administration. CT angiography of the head and neck was performed following intravenous administration of iodinated contrast. Coronal and sagittal MIPS were obtained from the axial data set and were submitted for review. Automated dose lowering techniques and/or adjustment according to patient size were utilized for this examination. All measurements were calculated based on NASCET criteria. CT DOSE: 1257.77 mGy.cm Comparison: Comparison is made to CTA neck 01/19/2022 FINDINGS: CT head: Areas of decreased attenuation are present in the periventricular and subcortical white matter bilaterally consistent with small vessel ischemic disease. Generalized cerebral atrophy with commensurate enlargement of the ventricles, sulci, and cisterns is also present. There is no acute intracranial hemorrhage or evidence of acute territorial infarction. No shift of the midline structures, mass effect, or extra-axial abnormalities are shown. Atherosclerotic calcifications are present in the intracranial segments of the internal carotid arteries. A left cochlear implant is seen. Lungs and soft tissues are unremarkable. CTA Neck: A 3 vessel aortic arch is shown. There is no significant atherosclerotic plaque in the aortic arch or the origins of the innominate, left common carotid, and left subclavian arteries. The common carotid, external carotid, cervical segments of the internal carotid arteries, and the cervical segments of the vertebral arteries are patent without hemodynamically significant stenosis. The vertebral arteries are codominant. CTA Head: The anterior and posterior cerebral circulations are patent. There is mild stenosis in the bilateral supraclinoid ICA which does not appear to be hemodynamically significant. Atherosclerotic disease is noted. IMPRESSION: 1. No acute intracranial hemorrhage, evidence of acute territorial infarction, or other acute intracranial disease process. Left cochlear implant is seen. 2. Mild stenosis in the bilateral supraclinoid ICA, which does not appear to be hemodynamically significant. 3. No occlusion, hemodynamically significant stenosis, or dissection in the major cervical arteries. Assessment of stenosis of the internal carotid arteries is based on NASCET criteria. ACT 112: Negative or not required by law. Electronically signed by: Madhu Thomas M.D. 07/23/2022 8:22 PM Head CTA 07/23/22 18:48 CT angio neck with con, CT angio head w con, CT head/brain wo con CLINICAL HISTORY: Stroke Like Symptoms TECHNIQUE: Contiguous axial CT images of the head were acquired from the base of the skull to the vertex without intravenous contrast administration. CT angiography of the head and neck was performed following intravenous admin istration of iodinated contrast. Coronal and sagittal MIPS were obtained from the axial data set and were submitted for review. Automated dose lowering techniques and/or adjustment according to patient size were utilized for this examination. All measurements were calculated based on NASCET criteria. CT DOSE: 1257.77 mGy.cm Comparison: Comparison is made to CTA neck 01/19/2022 FINDINGS: CT head: Areas of decreased attenuation are present in the periventricular and subcortical white matter bilaterally consistent with small vessel ischemic disease. Generalized cerebral atrophy with commensurate enlargement of the ventricles, sulci, and cisterns is also present. There is no acute intracranial hemorrhage or evidence of acute territorial infarction. No shift of the midline structures, mass effect, or extra-axial abnormalities are shown. Atherosclerotic calcifications are present in the intracranial segments of the internal carotid arteries. A left cochlear implant is seen. Lungs and soft tissues are unremarkable. CTA Neck: A 3 vessel aortic arch is shown. There is no significant atherosclerotic plaque in the aortic arch or the origins of the innominate, left common carotid, and left subclavian arteries. The common carotid, external carotid, cervical segments of the internal carotid arteries, and the cervical segments of the vertebral arteries are patent without hemodynamically significant stenosis. The vertebral arteries are codominant. CTA Head: The anterior and posterior cerebral circulations are patent. There is mild stenosis in the bilateral supraclinoid ICA which does not appear to be hemodynamically significant. Atherosclerotic disease is noted. IMPRESSION: 1. No acute intracranial hemorrhage, evidence of acute territorial infarction, or other acute intracranial disease process. Left cochlear implant is seen. 2. Mild stenosis in the bilateral supraclinoid ICA, which does not appear to be hemodynamically significant. 3. No occlusion, hemodynamically significant stenosis, or dissection in the major cervical arteries. Assessment of stenosis of the internal carotid arteries is based on NASCET criteria. ACT 112: Negative or not required by law. Electronically signed by: Madhu Thomas M.D. 07/23/2022 8:22 PM Neck CTA 07/23/22 18:48 CT angio neck with con, CT angio head w con, CT head/brain wo con CLINICAL HISTORY: Stroke Like Symptoms TECHNIQUE: Contiguous axial CT images of the head were acquired from the base of the skull to the vertex without intravenous contrast administration. CT angiography of the head and neck was performed following intravenous administra tion of iodinated contrast. Coronal and sagittal MIPS were obtained from the axial data set and were submitted for review. Automated dose lowering techniques and/or adjustment according to patient size were utilized for this examination. All measurements were calculated based on NASCET criteria. CT DOSE: 1257.77 mGy.cm Comparison: Comparison is made to CTA neck 01/19/2022 FINDINGS: CT head: Areas of decreased attenuation are present in the periventricular and subcortical white matter bilaterally consistent with small vessel ischemic disease. Generalized cerebral atrophy with commensurate enlargement of the ventricles, sulci, and cisterns is also present. There is no acute intracranial hemorrhage or evidence of acute territorial infarction. No shift of the midline structures, mass effect, or extra-axial abnormalities are shown. Atherosclerotic calcifications are present in the intracranial segments of the internal carotid arteries. A left cochlear implant is seen. Lungs and soft tissues are unremarkable. CTA Neck: A 3 vessel aortic arch is shown. There is no significant atherosclerotic plaque in the aortic arch or the origins of the innominate, left common carotid, and left subclavian arteries. The common carotid, external carotid, cervical segments of the internal carotid arteries, and the cervical segments of the vertebral arteries are patent without hemodynamically significant stenosis. The vertebral arteries are codominant. CTA Head: The anterior and posterior cerebral circulations are patent. There is mild stenosis in the bilateral supraclinoid ICA which does not appear to be he modynamically significant. Atherosclerotic disease is noted. IMPRESSION: 1. No acute intracranial hemorrhage, evidence of acute territorial infarction, or other acute intracranial disease process. Left cochlear implant is seen. 2. Mild stenosis in the bilateral supraclinoid ICA, which does not appear to be hemodynamically significant. 3. No occlusion, hemodynamically significant stenosis, or dissection in the major cervical arteries. Assessment of stenosis of the internal carotid arteries is based on NASCET criteria. ACT 112: Negative or not required by law. Electronically signed by: Madhu Thomas M.D. 07/23/2022 8:22 PM Discharge Plan Visit Data Chief Complaint: Confusion ED Provider: Juanpablo Martinez Discharge Problem: Acute confusion, AMS (altered mental status), Weakness, Anemia Forms Stand Alone Forms: [facility] Prescriptions Prescriptions: No Action insulin aspart U-100 [Novolog Flexpen U-100 Insulin] 100 unit/mL (3 mL) insulin pen 2 - 4 unit SUBCUT TIDM insulin glargine [Lantus Solostar U-100 Insulin] 100 unit/mL (3 mL) Insulin Pen 30 unit SUBCUT PM Lipotriad Vision Support 12,500 unit- 12.5 mg Capsule 1 cap PO QAM metoprolol tartrate 25 mg Tablet 25 mg PO BID Qty: 60 2RF nitroglycerin [Nitrostat] 0.4 mg Tablet, Sublingual 0.4 mg sublingual UD PRN (Reason: chest pain) Qty: 30 1RF aspirin 81 mg Tablet,Delayed Release (Dr/Ec) 81 mg PO QAM Qty: 90 1RF famotidine 40 mg tablet 40 mg PO DAILY amlodipine 2.5 mg tablet 2.5 mg PO DAILY fexofenadine 180 mg Tablet 180 mg PO DAILY PRN (Reason: SEASONAL ALLERGIES) lorazepam 0.5 mg tablet 0.5 mg PO Q6H PRN (Reason: Anxiety) hydrocortisone-acetic acid 1-2 % Drops 3 drp OTIC (EAR) BID PRN (Reason: ITCHY EARS) Repatha SureClick 140 mg/mL pen injector 140 mg SUBCUT .[id number] pantoprazole 20 mg Tablet,Delayed Release (Dr/Ec) 20 mg PO DAILY coenzyme Q10 [CoQ-10] 100 mg Capsule 100 mg PO DAILY Nexletol 180 mg Tablet 180 mg PO DAILY Referrals Referrals: Amairani Owen MD [Primary Care Provider] -
[2022-07-23 19:02] LABS: iSTAT Creatinine 1.1 mg/dl (0.6-1.3); iSTAT Hemoglobin 12.2 g/dl (12.0-16.0); iSTAT Ionized Calcium 1.17 mmol/l (1.12-1.32); iSTAT Potassium 4.4 mmol/L (3.3-5.0)
[2022-07-23 19:03] LABS: Basophils % (auto) 1.3 %; Eosinophils # (auto) 0.19 K/uL (0-0.50); Eosinophils % (auto) 2.4 %; Hematocrit (blood only) 33.8 % (34.1-44.9); Hemoglobin 11.4 g/dl (12.0-16.0); Immature Granulocytes # (auto) 0.02 K/uL (0.00-0.02); Immature Granulocytes % (auto) 0.3 %; Lymphocytes # (auto) 2.57 K/uL (1.2-3.4); Lymphocytes % (auto) 32.7 %; Mean Corpuscular Hgb Conc 33.7 g/dL (32.0-36.0); Mean Platelet Volume 11.3 fL (9.4-12.3); Monocytes # (auto) 0.59 K/uL (0.24-0.82); Monocytes % (auto) 7.5 %; Neutrophils # (auto) 4.39 K/uL (1.4-6.5); Neutrophils % (auto) 55.8 %; Platelet Count 284 K/uL (130-400); RDW Coefficient of Variation 12.4 % (11.5-14.5); RDW Standard Deviation 39.3 fL (36.4-46.3); Red Blood Count 3.93 M/uL (3.93-5.22); White Blood Count 7.86 K/ul (4.8-10.8)
[2022-07-23 19:09] LABS: Appearance Urine Clear (Clear); Bilirubin Urine Negative (Negative); Blood Urine Negative (Negative); Color Urine Yellow; Glucose Urine UA Negative (Negative); Ketones Urine Negative (Negative); Leukocyte Esterase Urine Negative (Negative); Nitrite Urine Negative (Negative); Protein Urine Negative (Negative); Specific Gravity Urine 1.014 (1.000-1.030); Urobilinogen Urine Negative (Negative); pH Urine 7.5 (4.5-7.5)
[2022-07-23 19:12] LABS: INR 1.1 (0.9-1.1); Partial Thromboplastin Time 27.1 Seconds (21.0-31.0); Prothrombin Time 11.4 Seconds (9.0-12.0)
--- NOTE | 2022-07-23 19:18 | XRay Report ---
XR chest 1V portable CLINICAL HISTORY: Stroke Like Symptoms TECHNIQUE: Single frontal radiograph of the chest was obtained. Comparison: Comparison is made to chest radiograph 01/14/2022 FINDINGS: No lines and tubes are seen. Calcified aortic knob is seen. The lungs are clear. No evidence of pleur al effusion or pneumothorax. IMPRESSION: No acute chest disease. ACT 112: Negative or not required by law. Electronically signed by: Madhu Thomas M.D. 07/23/2022 7:16 PM
[2022-07-23 19:26] LABS: Alanine Aminotransferase 10 U/L (7-52); Albumin Globulin Ratio 1.5 (0.9-2); Albumin Level 4.4 gm/dl (3.4-5.0); Alkaline Phosphatase 62 U/L (34-104); Anion Gap 10 (3-11); Aspartate Aminotransferase 15 U/L (13-39); BUN Creatinine Ratio 19.4 (10-20); Bilirubin,Total 0.3 mg/dl (0.2-1.0); Blood Urea Nitrogen 21 mg/dl (6-23); Calcium 9.2 mg/dl (8.5-10.1); Carbon Dioxide 26 mmol/L (21-32); Chloride 101 mmol/L (98-107); Est GFR (African American) 62.4 ml/min; Est GFR (Non-African American) 53.8 ml/min; Globulin 2.9 gm/dl (2.5-4.0); Glucose 185 mg/dl (70-99(Fasting)); Magnesium 1.8 mg/dl (1.7-2.4); Potassium 4.3 mmol/L (3.5-5.1); Sodium 137 mmol/L (136-145); Total Protein 7.3 gm/dl (6.0-8.3)
[2022-07-23 19:36] LABS: Troponin I High Sensitivity 14.7 pg/ml (0-14)
[2022-07-23] MEDS ORDERED: OPTIRAY 300 500mL IV ONE (19:49)
[2022-07-23 20:08] LABS: Base Excess VBG 3.7 mEq/L; HCO3 VBG 29 mmol/L; Oxygen Saturation VBG < 60.0 %; PCO2 VBG 43 mmHg (38-50); PO2 VBG 23 mmHg; pH VBG 7.43 (7.36-7.41)
--- NOTE | 2022-07-23 20:24 | CT Scan Report ---
CT angio neck with con, CT angio head w con, CT head/brain wo con CLINICAL HISTORY: Stroke Like Symptoms TECHNIQUE: Contiguous axial CT images of the head were acquired from the base of the skull to the abdi ericka without intravenous contrast administration. CT angiography of the head and neck was performed f ollowing intravenous administration of iodinated contrast. Coronal and sagittal MIPS were obtained fr om the axial data set and were submitted for review. Automated dose lowering techniques and/or adjus tment according to patient size were utilized for this examination. All measurements were calculated based on NASCET criteria. CT DOSE: 1257.77 mGy.cm Comparison: Comparison is made to CTA neck 01/19/2022 FINDINGS: CT head: Areas of decreased attenuation are present in the periventricular and subcortical white [place] er bilaterally consistent with small vessel ischemic disease. Generalized cerebral atrophy with comme nsurate enlargement of the ventricles, sulci, and cisterns is also present. There is no acute intracr anial hemorrhage or evidence of acute territorial infarction. No shift of the midline structures, mas s effect, or extra-axial abnormalities are shown. Atherosclerotic calcifications are present in the intracranial segments of the internal carotid arteries. A left cochlear implant is seen. Lungs and soft tissues are unremarkable. CTA Neck: A 3 vessel aortic arch is shown. There is no significant atherosclerotic plaque in the aor tic arch or the origins of the innominate, left common carotid, and left subclavian arteries. The c ommon carotid, external carotid, cervical segments of the internal carotid arteries, and the cervical segments of the vertebral arteries are patent without hemodynamically significant stenosis. The vert ebral arteries are codominant. CTA Head: The anterior and posterior cerebral circulations are patent. There is mild stenosis in the bilateral supraclinoid ICA which does not appear to be hemodynamically significant. Atherosclerotic disease is noted. IMPRESSION: 1. No acute intracranial hemorrhage, evidence of acute territorial infarction, or other acute intrac ranial disease process. Left cochlear implant is seen. 2. Mild stenosis in the bilateral supraclinoid ICA, which does not appear to be hemodynamically sign ificant. 3. No occlusion, hemodynamically significant stenosis, or dissection in the major cervical arteries. Assessment of stenosis of the internal carotid arteries is based on NASCET criteria. ACT 112: Negative or not required by law. Electronically signed by: Madhu Thomas M.D. 07/23/2022 8:22 PM
--- NOTE | 2022-07-23 22:38 | History & Physical Report ---
Date of Service July 23, 2022 Assessment & Plan (1) Acute confusion: Plan: Transient confusion possibly from mild clinical dehydration (Serum creatinine higher than usual on review of lab work) Troponin elevation possibly from decreased renal clearance of heart enzyme hx CAD status post stent/CVA DM1, reasonable control as of recent outpatient hemoglobin A1c of 7.6 as of February 2022 hypertension, BP on the lower side hyperlipidemia/statin intolerance, hx MELAS (mitochondrial encephalopathy w/ lactic acidosis and stroke-like episodes as per records), Chronic anemia, hemoglobin at baseline Tinnitus impacted cerumen hx sensorineural hearing loss status post cochlear implantation past tobacco abuse OBS Medical telemetry IVF Follow troponin, TTE if with progression Basal bolus insulin, ISS BG goal 1 10-1 40, carb count coverage, update hemoglobin A1c Ceruminolytic course, outpatient follow-up with PCP for cerumen removal if without spontaneous clearance 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 Lovenox subcu Full code Patient son requesting updates from providers. Mr. Martin Hough, contact #[phone]. Text document was generated using Para[employer] voice recognition software. It may contain grammatical or spelling errors. Kindly contact undersigned for clarification of any documentation item in question. History of Present Illness Chief Complaint: Confusion Primary Care Provider: Amairani Owen MD History obtained from patient, family, and records. History somewhat limited from patient secondary to hearing impairment. Medical history significant fo for CAD status post stent, CVA,, DM1, hypertension, hyperlipidemia/statin intolerance, hx MELAS (mitochondrial encephalopathy w/ lactic acidosis and stroke-like episodes as per records), chronic anemia (baseline hemoglobin 11) past tobacco abuse, migraine, sensorineural hearing loss status postcochlear implantation.. Last confinement January 2022 for left MCA infarction Patient was eating dinner with his sister yesterday when patient was noted to be confused. Patient has been hearing noises on her right ER for a few weeks. No headache, no chest pain, no SOB. IVF administered upon administration of the ER. Patient mentation much improved as per son. MEDICAL HISTORY: As above. SURGICAL HISTORY: Hysterectomy. Left shoulder surgery. Muscle biopsy surgery, Cholecystectomy, cochlear implantation FAMILY HISTORY: Stroke, DM, heart disease, MELAS syndrome PERSONAL SOCIAL HISTORY: Remote smoking history. No chronic intake of alcoholic beverages. Lives with son Allergies Allergy/AdvReac Type Severity Reaction Status Date / Time atorvastatin AdvReac Intermediate myalgias, Verified 07/23/22 20:59 dysarthria prednisone AdvReac Intermediate metabolic-h Verified 07/23/22 20:59 yperglycemi a Home Medications Medication Instructions Recorded Confirmed Type insulin aspart U-100 100 unit/mL 2 - 4 unit subcut TIDM 05/14/20 07/23/22 History (3 mL) subcutaneous pen (Novolog Flexpen U-100 Insulin aspart) insulin glargine 100 unit/mL (3 30 unit subcut PM 05/14/20 07/23/22 History mL) subcutaneous pen (Lantus Solostar U-100 Insulin) vit A 12,500 unit-zinc 12.5 1 cap PO QAM 05/14/20 07/23/22 History wt-qitywo-cbsce-bilberry-herb #261 capsule (Lipot[employer] Support) aspirin 81 mg tablet,delayed 81 mg PO QAM #90 tabs 05/17/20 07/23/22 Rx release metoprolol tartrate 25 mg tablet 25 mg PO BID #60 tabs 05/17/20 07/23/22 Rx nitroglycerin 0.4 mg sublingual 0.4 mg sublingual UD PRN chest 05/17/20 07/23/22 Rx tablet (Nitrostat) pain #30 tabs amlodipine 2.5 mg tablet 2.5 mg PO DAILY 08/10/21 07/23/22 History evolocumab 140 mg/mL subcutaneous 140 mg subcut .[id number] 08/10/21 07/23/22 History pen injector (Jaime Nicholson) famotidine 40 mg tablet 40 mg PO DAILY 08/10/21 07/23/22 History fexofenadine 180 mg tablet 180 mg PO DAILY PRN SEASONAL 08/10/21 07/23/22 History ALLERGIES hydrocortisone-acetic acid 1 %-2 % 3 drp otic (ear) BID PRN ITCHY EARS 08/10/21 07/23/22 History ear drops lorazepam 0.5 mg tablet 0.5 mg PO Q6H PRN Anxiety 08/10/21 07/23/22 History bempedoic acid 180 mg tablet 180 mg PO DAILY 01/14/22 07/23/22 History (Nexletol) coenzyme Q10 100 mg capsule 100 mg PO DAILY 01/14/22 07/23/22 History (CoQ-10) pantoprazole 20 mg tablet,delayed 20 mg PO DAILY 01/14/22 07/23/22 History release carbamide peroxide 6.5 % ear drops 5 drp OTB BID #15 mL 07/24/22 Rx (Ear Drops (carbamide peroxide)) Past Med/Surg History Medical History (Updated 07/24/22 @ 00:02 by Juanpablo Martinez DO) Atherosclerosis of coronary artery CAD (coronary artery disease) History of TIA (transient ischemic attack) HLD (hyperlipidemia) Hypertension Macular degeneration MELAS (mitochondrial encephalopathy, lactic acidosis and stroke-like episodes) Mnire's disease Schatzki's ring Statin intolerance Type 1 diabetes mellitus Surgical History History of cholecystectomy History of cochlear implant Left in 2014 History of colonoscopy with polypectomy History of heart artery stent History of hysterectomy History of left heart catheterization 07/2019 which revealed 30% proximal LAD otherwise clean coronaries Family History Mother Coronary heart disease, Onset Age: 70 Father Coronary heart disease, Onset Age: 50 Social History Smoking Status: Unknown if ever smoked Second Hand Exposure: No; Hx Alcohol Use: No Hx Substance Use: No Preferred Language: Maldivian Communication Ability: Impaired Communication Ability Comment: Left cochlear implant; patient cannot hear when not wearing implant. 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 Review of Systems Review of Systems: Could not be reliably obtained secondary to hearing impairment Physical Exam Physical Exam: GENERAL: Slightly anxious, slow speech (chronic ), hard of hearing, no respiratory distress SKIN: Pallor , warm HEENT: Pale palpebral conjunctivae, no ptosis; cochlear implant in place in place on the left postauricular area, impacted cerumen bilaterally, dry buccal mucosa NECK : Supple, no tenderness CHEST : CTA, no tenderness HEART : RRR, no obvious murmurs ABDOMEN:no distention, nontender EXTREMITIES : No LE swelling/tenderness, no other conspicuous deformities noted NEUROLOGIC : Coherent, no facial asymmetry, hard of hearing, gait and stance not assessed Results & Data Results & Data ([facility]) Vital Signs (Past 12 Hours) Vital Signs Temp Pulse Pulse Resp BP BP Pulse Ox 07/23/22 21:18 77 20 106/73 98 07/23/22 19:58 89 15 106/73 97 07/23/22 18:36 36.8 C 91 H 18 106/73 99 O2 Del Method 07/23/22 21:18 07/23/22 19:58 07/23/22 18:36 Room Air Laboratory Results Laboratory Results WBC 7.86 K/ul (4.8-10.8) 07/23/22 18:43 RBC 3.93 M/uL (3.93-5.22) 07/23/22 18:43 Hgb 11.4 g/dl (12.0-16.0) L 07/23/22 18:43 POC Hgb 12.2 g/dl (12.0-16.0) 07/23/22 18:50 Hct 33.8 % (34.1-44.9) L 07/23/22 18:43 POC Hct 36 % (37-47) L 07/23/22 18:50 MCV 86.0 fL (80.0-100.0) 07/23/22 18:43 MCH 29.0 pg (25.0-34.0) 07/23/22 18:43 MCHC 33.7 g/dL (32.0-36.0) 07/23/22 18:43 RDW Std Deviation 39.3 fL (36.4-46.3) 07/23/22 18:43 RDW Coeff of Marj 12.4 % (11.5-14.5) 07/23/22 18:43 Plt Count 284 K/uL (130-400) 07/23/22 18:43 MPV 11.3 fL (9.4-12.3) 07/23/22 18:43 Immature Gran % (Auto) 0.3 % 07/23/22 18:43 Neut % (Auto) 55.8 % 07/23/22 18:43 Lymph % (Auto) 32.7 % 07/23/22 18:43 [place] % (Auto) 7.5 % 07/23/22 18:43 Eos % (Auto) 2.4 % 07/23/22 18:43 Baso % (Auto) 1.3 % 07/23/22 18:43 Neut # (Auto) 4.39 K/uL (1.4-6.5) 07/23/22 18:43 Lymph # (Auto) 2.57 K/uL (1.2-3.4) 07/23/22 18:43 [place] # (Auto) 0.59 K/uL (0.24-0.82) 07/23/22 18:43 Eos # (Auto) 0.19 K/uL (0-0.50) 07/23/22 18:43 Baso # (Auto) 0.10 K/uL (0-0.2) 07/23/22 18:43 Immature Gran # (Auto) 0.02 K/uL (0.00-0.02) 07/23/22 18:43 PT 11.4 Seconds (9.0-12.0) 07/23/22 18:43 INR 1.1 (0.9-1.1) 07/23/22 18:43 APTT 27.1 Seconds (21.0-31.0) 07/23/22 18:43 PTT Ratio 1.0 07/23/22 18:43 VBG pH 7.43 (7.36-7.41) H 07/23/22 19:29 VBG pCO2 43 mmHg (38-50) 07/23/22 19:29 VBG pO2 23 mmHg 07/23/22 19:29 VBG HCO3 29 mmol/L 07/23/22 19:29 VBG O2 Saturation < 60.0 % 07/23/22 19:29 VBG Base Excess 3.7 mEq/L 07/23/22 19:29 POC Sodium 139 mmol/L (135-144) 07/23/22 18:50 Sodium 137 mmol/L (136-145) 07/23/22 18:43 POC Potassium 4.4 mmol/L (3.3-5.0) 07/23/22 18:50 Potassium 4.3 mmol/L (3.5-5.1) 07/23/22 18:43 POC Chloride 101 mmol/L (101-112) 07/23/22 18:50 Chloride 101 mmol/L (98-107) 07/23/22 18:43 Carbon Dioxide 26 mmol/L (21-32) 07/23/22 18:43 POC Total CO2 24 mmol/L (24-31) 07/23/22 18:50 Anion Gap 10 (3-11) 07/23/22 18:43 POC Anion Gap 19.0 mmol/L (16-25) 07/23/22 18:50 POC BUN 20 mg/dl (7-18) H 07/23/22 18:50 BUN 21 mg/dl (6-23) 07/23/22 18:43 Creatinine 1.08 mg/dl (0.6-1.2) 07/23/22 18:43 POC Creatinine 1.1 mg/dl (0.6-1.3) 07/23/22 18:50 Est Cr Clr Drug Dosing Not Reportable 07/23/22 18:43 Est GFR ( Amer) 62.4 ml/min 07/23/22 18:43 Est GFR (Non-Af Amer) 53.8 ml/min 07/23/22 18:43 BUN/Creatinine Ratio 19.4 (10-20) 07/23/22 18:43 Glucose 185 mg/dl (70-99(Fasting)) H 07/23/22 18:43 POC Glucose 174 mg/dl (70-99) H 07/23/22 22:16 POC Glucose (other) 197 mg/dl (70-99) H 07/23/22 18:50 Calcium 9.2 mg/dl (8.5-10.1) 07/23/22 18:43 POC Ioniz Calcium Daily 1.17 mmol/l (1.12-1.32) 07/23/22 18:50 Magnesium 1.8 mg/dl (1.7-2.4) 07/23/22 18:43 Total Bilirubin 0.3 mg/dl (0.2-1.0) 07/23/22 18:43 AST 15 U/L (13-39) 07/23/22 18:43 ALT 10 U/L (7-52) 07/23/22 18:43 Alkaline Phosphatase 62 U/L (34-104) 07/23/22 18:43 Ammonia 41.0 umol/L (18-72) 07/23/22 19:29 Troponin I High Sens 14.7 pg/ml (0-14) H 07/23/22 18:43 Total Protein 7.3 gm/dl (6.0-8.3) 07/23/22 18:43 Albumin 4.4 gm/dl (3.4-5.0) 07/23/22 18:43 Globulin 2.9 gm/dl (2.5-4.0) 07/23/22 18:43 Albumin/Globulin Ratio 1.5 (0.9-2) 07/23/22 18:43 Urine Color Yellow 07/23/22 18:55 Urine Appearance Clear (Clear) 07/23/22 18:55 Urine pH 7.5 (4.5-7.5) 07/23/22 18:55 Ur Specific [place] 1.014 (1.000-1.030) 07/23/22 18:55 Urine Protein Negative (Negative) 07/23/22 18:55 Urine Glucose (UA) Negative (Negative) 07/23/22 18:55 Urine Ketones Negative (Negative) 07/23/22 18:55 Urine Blood Negative (Negative) 07/23/22 18:55 Urine Nitrite Negative (Negative) 07/23/22 18:55 Urine Bilirubin Negative (Negative) 07/23/22 18:55 Urine Urobilinogen Negative (Negative) 07/23/22 18:55 Ur Leukocyte Esterase Negative (Negative) 07/23/22 18:55 SARS-CoV-2, RNA, NAAT NEGATIVE (NEGATIVE) 07/23/22 19:20 Impressions Chest X-Ray 07/23/22 18:48 XR chest 1V portable CLINICAL HISTORY: Stroke Like Symptoms TECHNIQUE: Single frontal radiograph of the chest was obtained. Comparison: Comparison is made to chest radiograph 01/14/2022 FINDINGS: No lines and tubes are seen. Calcified aortic knob is seen. The lungs are clear. No evidence of pleural effusion or pneumothorax. IMPRESSION: No acute chest disease. ACT 112: Negative or not required by law. Electronically signed by: Madhu Thomas M.D. 07/23/2022 7:[address] 07/23/22 18:48 CT angio neck with con, CT angio head w con, CT head/brain wo con CLINICAL HISTORY: Stroke Like Symptoms TECHNIQUE: Contiguous axial CT images of the head were acquired from the base of the skull to the vertex without intravenous contrast administration. CT angiography of the head and neck was performed following intravenous administration of iodinated contrast. Coronal and sagittal MIPS were obtained from the axial data set and were submitted for review. Automated dose lowering techniques and/or adjustment according to patient size were utilized for this examination. All measurements were calculated based on NASCET criteria. CT DOSE: 1257.77 mGy.cm Comparison: Comparison is made to CTA neck 01/19/2022 FINDINGS: CT head: Areas of decreased attenuation are present in the periventricular and subcortical white matter bilaterally consistent with small vessel ischemic disease. Generalized cerebral atrophy with commensurate enlargement of the ventricles, sulci, and cisterns is also present. There is no acute intracranial hemorrhage or evidence of acute territorial infarction. No shift of the midline structures, mass effect, or extra-axial abnormalities are shown. Atherosclerotic calcifications are present in the intracranial segments of the internal carotid arteries. A left cochlear implant is seen. Lungs and soft tissues are unremarkable. CTA Neck: A 3 vessel aortic arch is shown. There is no significant atherosclerotic plaque in the aortic arch or the origins of the innominate, left common carotid, and left subclavian arteries. The common carotid, external carotid, cervical segments of the internal carotid arteries, and the cervical segments of the vertebral arteries are patent without hemodynamically significant stenosis. The vertebral arteries are codominant. CTA Head: The anterior and posterior cerebral circulations are patent. There is mild stenosis in the bilateral supraclinoid ICA which does not appear to be hemodynamically significant. Atherosclerotic disease is noted. IMPRESSION: 1. No acute intracranial hemorrhage, evidence of acute territorial infarction, or other acute intracranial disease process. Left cochlear implant is seen. 2. Mild stenosis in the bilateral supraclinoid ICA, which does not appear to be hemodynamically significant. 3. No occlusion, hemodynamically significant stenosis, or dissection in the major cervical arteries. Assessment of stenosis of the internal carotid arteries is based on NASCET criteria. ACT 112: Negative or not required by law. Electronically signed by: Madhu Thomas M.D. 07/23/2022 8:22 PM Head CTA 07/23/22 18:48 CT angio neck with con, CT angio head w con, CT head/brain wo con CLINICAL HISTORY: Stroke Like Symptoms TECHNIQUE: Contiguous axial CT images of the head were acquired from the base of the skull to the vertex without intravenous contrast administration. CT angiography of the head and neck was performed following intravenous administration of iodinated contrast. Coronal and sagittal MIPS were obtained from the axial data set and were submitted for review. Automated dose lowering techniques and/or adjustment according to patient size were utilized for this examination. All measurements were calculated based on NASCET criteria. CT DOSE: 1257.77 mGy.cm Comparison: Comparison is made to CTA neck 01/19/2022 FINDINGS: CT head: Areas of decreased attenuation are present in the periventricular and subcortical white matter bilaterally consistent with small vessel ischemic disease. Generalized cerebral atrophy with commensurate enlargement of the ventricles, sulci, and cisterns is also present. There is no acute intracranial hemorrhage or evidence of acute territorial infarction. No shift of the midline structures, mass effect, or extra-axial abnormalities are shown. Atherosclerotic calcifications are present in the intracranial segments of the internal carotid arteries. A left cochlear implant is seen. Lungs and soft tissues are unremarkable. CTA Neck: A 3 vessel aortic arch is shown. There is no significant atherosclerotic plaque in the aortic arch or the origins of the innominate, left common carotid, and left subclavian arteries. The common carotid, external carotid, cervical segments of the internal carotid arteries, and the cervical segments of the vertebral arteries are patent without hemodynamically significant stenosis. The vertebral arteries are codominant. CTA Head: The anterior and posterior cerebral circulations are patent. There is mild stenosis in the bilateral supraclinoid ICA which does not appear to be hemodynamically significant. Atherosclerotic disease is noted. IMPRESSION: 1. No acute intracranial hemorrhage, evidence of acute territorial infarction, or other acute intracranial disease process. Left cochlear implant is seen. 2. Mild stenosis in the bilateral supraclinoid ICA, which does not appear to be hemodynamically significant. 3. No occlusion, hemodynamically significant stenosis, or dissection in the major cervical arteries. Assessment of stenosis of the internal carotid arteries is based on NASCET criteria. ACT 112: Negative or not required by law. Electronically signed by: Madhu Thomas M.D. 07/23/2022 8:22 PM Neck CTA 07/23/22 18:48 CT angio neck with con, CT angio head w con, CT head/brain wo con CLINICAL HISTORY: Stroke Like Symptoms TECHNIQUE: Contiguous axial CT images of the head were acquired from the base of the skull to the vertex without intravenous contrast administration. CT angiography of the head and neck was performed following intravenous administration of iodinated contrast. Coronal and sagittal MIPS were obtained from the axial data set and were submitted for review. Automated dose lowering techniques and/or adjustment according to patient size were utilized for this examination. All measurements were calculated based on NASCET criteria. CT DOSE: 1257.77 mGy.cm Comparison: Comparison is made to CTA neck 01/19/2022 FINDINGS: CT head: Areas of decreased attenuation are present in the periventricular and subcortical white matter bilaterally consistent with small vessel ischemic disease. Generalized cerebral atrophy with commensurate enlargement of the ventricles, sulci, and cisterns is also present. There is no acute intracranial hemorrhage or evidence of acute territorial infarction. No shift of the midline structures, mass effect, or extra-axial abnormalities are shown. Atherosclerotic calcifications are present in the intracranial segments of the internal carotid arteries. A left cochlear implant is seen. Lungs and soft tissues are unremarkable. CTA Neck: A 3 vessel aortic arch is shown. There is no significant atherosclerotic plaque in the aortic arch or the origins of the innominate, left common carotid, and left subclavian arteries. The common carotid, external carotid, cervical segments of the internal carotid arteries, and the cervical segments of the vertebral arteries are patent without hemodynamically significant stenosis. The vertebral arteries are codominant. CTA Head: The anterior and posterior cerebral circulations are patent. There is mild stenosis in the bilateral supraclinoid ICA which does not appear to be hemodynamically significant. Atherosclerotic disease is noted. IMPRESSION: 1. No acute intracranial hemorrhage, evidence of acute territorial infarction, or other acute intracranial disease process. Left cochlear implant is seen. 2. Mild stenosis in the bilateral supraclinoid ICA, which does not appear to be hemodynamically significant. 3. No occlusion, hemodynamically significant stenosis, or dissection in the major cervical arteries. Assessment of stenosis of the internal carotid arteries is based on NASCET criteria. ACT 112: Negative or not required by law. Electronically signed by: Madhu Thomas M.D. 07/23/2022 8:22 PM Diagnostic Findings EKG as per my interpretation :Rate 85, NSR, LAD, LAFB, T wave inversion lateral leads
[2022-07-23] MEDS ORDERED: LANTUS PER UNIT CHARGE SQ STA (23:12)
[2022-07-23] MEDS ORDERED: PROMETHAZINE HCL 6.25 MG in SODIUM CHLORIDE 0.9% 50 ML IV PRN (23:28)
[2022-07-23] MEDS ORDERED: SODIUM CHLORIDE 0.9% 1000ML 1,000 ML IV ONE (23:30)
[2022-07-24] MEDS ORDERED: ACETAMINOPHEN 325 MG TAB PO PRN (00:56)
[2022-07-24] MEDS ORDERED: LORazepam 0.5 MG TAB PO PRN (00:56)
[2022-07-24] MEDS ORDERED: FEXOFENADINE HCL 180 MG TAB PO PRN (00:56)
[2022-07-24] MEDS: CARBAMIDE PEROXIDE 6.5% 15 ML BTL OTB SCH ×2 (01:22→08:43)
[2022-07-24] MEDS: METOPROLOL TARTRATE 25 MG TAB PO SCH ×3 (01:55→08:44)
[2022-07-24 05:11] LABS: Basophils % (auto) 1.3 %; Eosinophils # (auto) 0.17 K/uL (0-0.50); Eosinophils % (auto) 2.2 %; Hematocrit (blood only) 34.5 % (34.1-44.9); Hemoglobin 11.4 g/dl (12.0-16.0); Immature Granulocytes # (auto) 0.02 K/uL (0.00-0.02); Immature Granulocytes % (auto) 0.3 %; Lymphocytes # (auto) 2.71 K/uL (1.2-3.4); Lymphocytes % (auto) 35.4 %; Mean Corpuscular Hemoglobin 28.9 pg (25.0-34.0); Mean Corpuscular Volume 87.6 fL (80.0-100.0); Mean Platelet Volume 11.2 fL (9.4-12.3); Monocytes # (auto) 0.68 K/uL (0.24-0.82); Monocytes % (auto) 8.9 %; Neutrophils # (auto) 3.98 K/uL (1.4-6.5); Neutrophils % (auto) 51.9 %; Platelet Count 275 K/uL (130-400); RDW Coefficient of Variation 12.4 % (11.5-14.5); RDW Standard Deviation 39.8 fL (36.4-46.3); Red Blood Count 3.94 M/uL (3.93-5.22); White Blood Count 7.66 K/ul (4.8-10.8)
[2022-07-24 05:36] LABS: Calcium 8.8 mg/dl (8.5-10.1); Creatinine Clr Calc Pharmacy 59.1 ml/min; Est GFR (African American) 96.9 ml/min; Est GFR (Non-African American) 83.6 ml/min; Potassium 3.8 mmol/L (3.5-5.1); Troponin I High Sensitivity 22.2 pg/ml (0-14)
[2022-07-24 07:03] LABS: Estimated Average Glucose 177 mg/dl; Hemoglobin A1C 7.8 % (4.5-5.6)
[2022-07-24] MEDS ORDERED: amLODIPine BESYLATE 5 MG TAB PO SCH (09:00)
[2022-07-24] MEDS ORDERED: CEROVITE ADV FORMULA TAB PO SCH (09:00)
[2022-07-24] MEDS ORDERED: ASPIRIN 81 MG ECTAB PO SCH (09:00)
[2022-07-24] MEDS ORDERED: FAMOTIDINE 40 MG TABLET PO SCH (09:00)
[2022-07-24] MEDS ORDERED: PANTOprazole 40 MG TAB PO SCH (09:00)
[2022-07-24] MEDS ORDERED: GLUCOSE 40% GEL 15 GM TUBE PO PRN (11:30)
[2022-07-24] MEDS ORDERED: CARBOHYDRATES FOR HYPOGLYCEMIA PO PRN (11:30)
[2022-07-24] MEDS ORDERED: DEXTROSE 50% 50 ML SYRINGE IV PRN (11:30)
[2022-07-24] MEDS ORDERED: GLUCAGON FOR INJ 1 MG VIAL IM PRN (11:30)
[2022-07-24] MEDS ORDERED: GLUCOSE 10 TAB/TUBE PO PRN (11:30)
--- NOTE | 2022-07-24 13:41 | Discharge Summary ---
Date of Service July 24, 2022 Admission HPI Per Admitting Provider History obtained from patient, family, and records. History somewhat limited from patient secondary to hearing impairment. Medical history significant fo for CAD status post stent, CVA,, DM1, hypertension, hyperlipidemia/statin intolerance, hx MELAS (mitochondrial encephalopathy w/ lactic acidosis and stroke-like episodes as per records), chronic anemia (baseline hemoglobin 11) past tobacco abuse, migraine, sensorineural hearing loss status postcochlear implantation.. Last confinement January 2022 for left MCA infarction Patient was eating dinner with his sister yesterday when patient was noted to be confused. Patient has been hearing noises on her right ER for a few weeks. No headache, no chest pain, no SOB. IVF administered upon administration of the ER. Patient mentation much improved as per son. MEDICAL HISTORY: As above. SURGICAL HISTORY: Hysterectomy. Left shoulder surgery. Muscle biopsy surgery, Cholecystectomy, cochlear implantation FAMILY HISTORY: Stroke, DM, heart disease, MELAS syndrome PERSONAL SOCIAL HISTORY: Remote smoking history. No chronic intake of alcoholic beverages. Lives with son Admission Exam Per Admitting Provider GENERAL: Slightly anxious, slow speech (chronic ), hard of hearing, no respiratory distress SKIN: Pallor , warm HEENT: Pale palpebral conjunctivae, no ptosis; cochlear implant in place in place on the left postauricular area, impacted cerumen bilaterally, dry buccal mucosa NECK : Supple, no tenderness CHEST : CTA, no tenderness HEART : RRR, no obvious murmurs ABDOMEN:no distention, nontender EXTREMITIES : No LE swelling/tenderness, no other conspicuous deformities noted NEUROLOGIC : Coherent, no facial asymmetry, hard of hearing, gait and stance not assessed Principal Diagnosis Acute confusion likely secondary to mild clinical dehydration Discharge Exam GENERAL: Alert and oriented x4. NAD, on RA. Very [place] HEENT: No pallor, no icterus. Pupils equal, round and reactive to light. Oral mucosa moist. NECK: No JVD, no neck masses. HEART: S1 and S2 heard. Regular rate and rhythm. No murmur, no gallop. RESPIRATORY SYSTEM: Normal AP diameter. No accessory muscle use. No wheezing, no crackles. ABDOMEN: Soft, bowel sounds present, nontender, no distention. CENTRAL NERVOUS SYSTEM: No facial droop. Speech is clear. Obeys simple commands. Moves extremities. EXTREMITIES: No edema, no erythema seen. Discharge Data Allergies Allergy/AdvReac Type Severity Reaction Status Date / Time atorvastatin AdvReac Intermediate myalgias, Verified 07/23/22 20:59 dysarthria prednisone AdvReac Intermediate metabolic-h Verified 07/23/22 20:59 yperglycemi a Consultations 07/23/22 21:38 ED Decision to Admit Stat Ordered Studies 07/23/22 18:48 CT angio head w con Stat CT angio neck with con Stat CT head/brain wo con Stat Hospital Course (1) Acute confusion: Patient was managed for transient confusion possibly from mild clinical dehydration status post IV fluid resuscitation patient hemodynamically stable, no neurological signs or symptoms and AOx4 and would like to go home today. Patient stable. Also patient had troponin minimally elevated at presentation but patient without chest pain and troponin tends fairly flat with admitting EKG without any acute ST or T changes. Patient was also noted to have impacted cerumen in bilateral ears, patient is being discharged on ceruminolytic course for 4 days, patient to follow-up with PCP for cerumen removal. Patient's son Martin was called to provide general update, went into voicemail, left message to call back. PT evaluated and cleared her for home with family assistance. Full code Patient being discharged to home with following instructions at the point of discharge: Follow-up with your primary care physician within a week time. Also discuss about your cerumen removal with your PCP. You are being discharged on ceruminolytic course. Get your blood work CBC and CMP done in a week time and have the results forwarded to your primary care physician. Ensure that you drink at least 2 L of fluid per day. Taking medications as prescribed. Total Time Total Time Spent Total Time Spent (In Minutes): 40 Discharge Plan Discharge Items Patient Disposition: Home - Self-Care Reason For Visit: TROP ELEV, AMS Discharge Diagnosis: Acute confusion likely secondary to mild clinical dehydration Activity: Resume your previous activity Activity Comment: Advise reducing the speed of movement to increase saf ety/balance. Non-emergency contact: Primary Care Provider Call non-emergency contact if: you have any medication questions and your temperature is above 101 Follow-up/Referrals: Amairani Owen MD [Primary Care Provider] - Diet: Carb Count or DM1 and Heart Healthy Addtl Attending Provider Instructions: Follow-up with your primary care physician within a week time. Also discuss about your cerumen removal with your PCP. You are being discharged on ceruminolytic course. Get your blood work CBC and CMP done in a week time and have the results forwarded to your primary care physician. Ensure that you drink at least 2 L of fluid per day. Taking medications as prescribed. Pending Studies at Discharge: No Stand-Alone Forms: My [facility], Smoking Cessation Medications and DC Order Prescriptions: New Ear Drops (carbamide peroxide) 6.5 % Drops 5 drp OTB BID Qty: 15 0RF Rx Instructions: 5 drops twice daily up to 4 days Continued insulin aspart U-100 [Novolog Flexpen U-100 Insulin] 100 unit/mL (3 mL) insulin pen 2 - 4 unit SUBCUT TIDM insulin glargine [Lantus Solostar U-100 Insulin] 100 unit/mL (3 mL) Insulin Pen 30 unit SUBCUT PM Lipotriad Vision Support 12,500 unit- 12.5 mg Capsule 1 cap PO QAM metoprolol tartrate 25 mg Tablet 25 mg PO BID Qty: 60 2RF nitroglycerin [Nitrostat] 0.4 mg Tablet, Sublingual 0.4 mg sublingual UD PRN (Reason: chest pain) Qty: 30 1RF aspirin 81 mg Tablet,Delayed Release (Dr/Ec) 81 mg PO QAM Qty: 90 1RF famotidine 40 mg tablet 40 mg PO DAILY amlodipine 2.5 mg tablet 2.5 mg PO DAILY fexofenadine 180 mg Tablet 180 mg PO DAILY PRN (Reason: SEASONAL ALLERGIES) lorazepam 0.5 mg tablet 0.5 mg PO Q6H PRN (Reason: Anxiety) hydrocortisone-acetic acid 1-2 % Drops 3 drp OTIC (EAR) BID PRN (Reason: ITCHY EARS) Repatha SureClick 140 mg/mL pen injector 140 mg SUBCUT .[id number] pantoprazole 20 mg Tablet,Delayed Release (Dr/Ec) 20 mg PO DAILY coenzyme Q10 [CoQ-10] 100 mg Capsule 100 mg PO DAILY Nexletol 180 mg Tablet 180 mg PO DAILY Discharge Orders: Discharge Order (Routine); Ordered 07/24/22 Ordered By: Bello Rowley/Other Patient Handouts: Managing Type 1 Diabetes Admission Data Admit Date/Time: 07/23/22 23:17 Attending Provider: Bello Pereira Admit Provider: Mikey Hillman Primary Care Provider: Amairani Owen Other Providers: Mikey Hillman
--- NOTE | 2022-07-24 13:59 | Electrocardiogram Report ---
Test Reason : Blood Pressure : / mmHG Vent. Rate : 085 BPM Atrial Rate : 085 BPM P-R Int : 114 ms QRS Dur : 084 ms QT Int : 366 ms P-R-T Axes : 067 -50 157 degrees QTc Int : 435 ms Normal sinus rhythm Left axis deviation Anteroseptal infarct (cited on or before 19-JAN-2022) T wave abnormality, consider lateral ischemia Abnormal ECG When compared with ECG of 20-JAN-2022 09:12, No significant change Confirmed by Ilya Koenig ([id number]) on 07/24/2022 1:59:11 PM Referred By: REFERRED SELF Confirmed By:Ilya Koenig
[2022-07-24] MEDS ORDERED: LANTUS PER UNIT CHARGE SQ SCH (21:00)
== END 2022-07-24 15:50 | disposition home or self-care (01) ==
LOC: ED 18:36 → 2N 18:36 → SUATTDRO 23:17 → 2N 07-24 00:10

== ENCOUNTER 2023-05-07 00:43 | Observation (INO) ==
--- NOTE | 2023-05-07 00:56 | Emergency Department Note ---
History of Present Illness General Chief complaint: Foot Injury/Pain Stated complaint: rt. FOOT INJURY Time Seen by Provider: 05/07/23 00:45 History of Present Illness This 67-year-old female patient presents to the emergency department via ambulance for evaluation of right foot injury and chest pain. She states that she dropped a picture frame on her right foot and ankle around 4 pm today. The patient has been having trouble walking since the injury. There is bruising and swelling to the area. The patient then developed central chest pain at 11 PM tonight. The patient took 2 nitroglycerin at home and the chest pain resolved. The patient is concerned because she had a previous heart attack with stents placed and her daughter from an infection with complications from her diabetes and her heart. Currently she denies any chest pain. She took 81 mg of aspirin today. She is not currently on any blood thinners. The patient denies any shortness of breath, cough, fever, or URI symptoms. She denies any abdominal pain, nausea, or vomiting. She states that she always has to go to the bathroom frequently, but denies any other urinary symptoms. Home Medications Medication Instructions Recorded Confirmed Type insulin aspart U-100 100 unit/mL 6 unit subcut TIDM 05/14/20 05/07/23 History (3 mL) subcutaneous pen (Novolog FlexPen U-100 Insulin aspart) insulin glargine 100 unit/mL (3 16 unit subcut HS 05/14/20 05/07/23 History mL) subcutaneous pen (Lantus Solostar U-100 Insulin) vit A 12,500 unit-zinc 12.5 1 cap PO QAM 05/14/20 05/07/23 History yq-aadbee-txbxi-bilberry-herb #261 capsule (Lipotriad Vision Support) aspirin 81 mg tablet,delayed 81 mg PO QAM #90 tabs 05/17/20 05/07/23 Rx release nitroglycerin 0.4 mg sublingual 0.4 mg sublingual UD PRN chest 05/17/20 05/07/23 Rx tablet (Nitrostat) pain #30 tabs amlodipine 2.5 mg tablet 2.5 mg PO DAILY 08/10/21 05/07/23 History evolocumab 140 mg/mL subcutaneous 140 mg subcut .[id number] 08/10/21 05/07/23 History pen injector (Jaime Nicholson) hydrocortisone-acetic acid 1 %-2 % 3 drp otic (ear) BID PRN ITCHY EARS 08/10/21 05/07/23 History ear drops bempedoic acid 180 mg tablet 180 mg PO DAILY 01/14/22 05/07/23 History (Nexletol) coenzyme Q10 100 mg capsule 100 mg PO DAILY 01/14/22 05/07/23 History (CoQ-10) acetaminophen 325 mg capsule 650 mg PO Q8H PRN fever or pain 05/07/23 Rx (Tylenol) #60 caps oqlhwnt-ylzdnngcnllns-zzriaryy 250 1 tab PO Q6H PRN Headache 05/07/23 05/07/23 History mg-250 mg-65 mg tablet (Excedrin Migraine) diclofenac sodium 1 % topical gel 2 g topical QID #100 grams 05/07/23 Rx (Voltaren Arthritis Pain) metoprolol tartrate 25 mg tablet 37.5 mg PO BID 05/07/23 05/07/23 History Allergies Allergy/AdvReac Type Severity Reaction Status Date / Time atorvastatin AdvReac Intermediate myalgias, Verified 05/07/23 01:36 dysarthria prednisone AdvReac Intermediate metabolic-h Verified 05/07/23 01:36 yperglycemi a Past Med/Surg History Medical History Atherosclerosis of coronary artery CAD (coronary artery disease) History of TIA (transient ischemic attack) HLD (hyperlipidemia) Hypertension Macular degeneration MELAS (mitochondrial encephalopathy, lactic acidosis and stroke-like episodes) Mnire's disease Schatzki's ring Statin intolerance Type 1 diabetes mellitus Surgical History History of cholecystectomy History of cochlear implant Left in 2014 History of colonoscopy with polypectomy History of heart artery stent History of hysterectomy History of left heart catheterization 07/2019 which revealed 30% proximal LAD otherwise clean coronaries Family History Mother Coronary heart disease, Onset Age: 70 Father Coronary heart disease, Onset Age: 50 Social History Smoking Status: Never smoker Second Hand Exposure: No; Do You Dip or Chew Tobacco: No; Hx Alcohol Use: No Hx Substance Use: No Preferred Language: Chinese Communication Ability: Impaired Communication Ability Comment: Left cochlear implant Hearing Ability: Cochlear Implant [employer] Required: No Beliefs That Will Affect Care: None marital status: Current Living Situation: Family Current Living Situation Comment: SON LIVES WITH PATIENT current occupational status: retired and disabled How many Children do You have: 2 Other Information That Helps Us Care for You: No Feels Safe at Home: Yes Safety Concerns: Feels Safe At This Time Assistive Devices: Glasses and Hearing Aid - Left Assistive Devices Comment: Left cochlear implant device, extra battery in belo ngings bag Review of Systems See HPI for pertinent positives & negatives. Physical Exam Vital Signs Vital Signs - 24 hr 05/07/23 01:00 05/07/23 03:39 05/07/23 00:59 Temperature 36.5 C Temperature Source Oral Pulse Rate 85 86 Pulse Rate [Apical] 72 Respiratory Rate 22 20 Respiratory Effort / Characteristics Non-Labored Spontaneous Non-Labored Spontaneous Respiratory Depth Normal Normal Respiratory Pattern Regular Regular Blood Pressure 154/78 H Blood Pressure [Left Arm] 138/76 Blood Pressure Mean 103 Blood Pressure Mean [Left Arm] 96 Pulse Oximetry 98 97 Oxygen Delivery Method Room Air Sepsis Recent Fever Within 48 Hours No Sepsis New/Unexplained Change in Mental Status No Sepsis Action Taken by Nursing No Action Required 05/07/23 05:00 05/07/23 05:48 Temperature Temperature Source Pulse Rate 69 Pulse Rate [Apical] 97 H Respiratory Rate 20 Respiratory Effort / Characteristics Non-Labored Spontaneous Respiratory Depth Normal Respiratory Pattern Regular Blood Pressure Blood Pressure [Left Arm] Blood Pressure Mean Blood Pressure Mean [Left Arm] Pulse Oximetry 99 Oxygen Delivery Method Room Air Sepsis Recent Fever Within 48 Hours Sepsis New/Unexplained Change in Mental Status Sepsis Action Taken by Nursing VITALS: Vitals are noted on the nurse's note and reviewed by myself. GENERAL: Non toxic, no acute distress, non-diaphoretic. SKIN: The patient has edema and ecchymosis to the dorsal aspect of the right foot as well as the anterior aspect of the right ankle. There is some disruption in the top layer of the skin, but not a true abrasion and no laceration. Capillary refill <2 sec. EYES: PERRLA. EOMI. Conjunctivae without injection, sclerae without icterus. NOSE: Patent without discharge. MOUTH: Mucous membranes moist. Uvula midline. Airway patent. NECK: Supple without nuchal rigidity. HEART: Regular rate and rhythm without murmurs gallops or rubs. LUNGS: Clear to auscultation bilaterally without wheezes, rales or rhonchi. No retractions or accessory muscle use. ABDOMEN: Positive bowel sounds x 4. Normal tympanic percussion. Soft, nontender, without masses or organomegaly. Bello sign negative. No guarding or rebound tenderness. No focal RLQ or LLQ tenderness. MUSCULOSKELETAL: The patient is tender to palpation over the dorsal aspect of the right foot as well as the anterior aspect of the right ankle. Increased pain with range of motion of the right ankle. Full range of motion of the toes with minimal pain. No obvious ligamentous instability. No tenderness to palpation of the right tib-fib or knee. Dorsalis pedis and posterior tibial pulse 2+. NEURO: Patient was alert and oriented to person place and time. Normal sensation to light and sharp touch of the right lower extremity. No focal neurological deficits. Course Administered Medications Discontinued Medications Amlodipine Besylate (Amlodipine Besylate 5 Mg Tab) 2.5 mg PO DAILY CLEMENTINA Stop: 06/06/23 08:59 Last Admin: 05/07/23 09:24 Dose: 2.5 mg Documented By: JUAN Aspirin (Aspirin Chew 324 Mg) 243 mg PO NOW STA Stop: 05/07/23 01:23 Last Admin: 05/07/23 01:30 Dose: 243 mg Documented By: ANDREW Aspirin (Aspirin 81 Mg Ectab) 81 mg PO QAM CLEMENTINA Stop: 06/06/23 08:59 Last Admin: 05/07/23 09:24 Dose: 81 mg Documented By: JUAN Sodium Chloride (Nss) 500 mls @ 999 mls/hr IV .Q31M STA Stop: 05/07/23 01:52 Last Infusion: 05/07/23 02:50 Dose: 0 mls/hr Documented By: staff accountant: 05/07/23 01:32 Dose: 999 mls/hr Documented By: ANDREW Insulin Aspart (Insulin Aspart Per Unit Charge) 0 units SC Q6H CLEMENTINA Stop: 06/06/23 08:29 Last Admin: 05/07/23 12:15 Dose: 3 units Documented By: JUAN Co-signed By: HAJA Admin: 05/07/23 09:25 Dose: Not Given Documented By: JUAN Metoprolol Tartrate (Metoprolol Tartrate 25 Mg Tab) 37.5 mg PO BID [facility] Stop: 06/06/23 08:59 Last Admin: 05/07/23 09:24 Dose: 37.5 mg Documented By: JUAN Miscellaneous (Patient's Height &/Or Weight Needed) 1 each N/A Q2H CLEMENTINA Stop: 06/06/23 08:44 Last Admin: 05/07/23 09:25 Dose: 1 each Documented By: GPF Medical Decision Making Differential Diagnosis Differential diagnosis includes fracture, dislocation, contusion, angina, NE, pericarditis, myocarditis, aortic dissection, pleurisy, pneumothorax, PE, pneumonia, pneumomediastinum, esophagitis, esophageal spasm, GERD, perforated esophagus, perforated duodenal/gastric ulcer, pancreatitis, cholecystitis, costochondritis, musculoskeletal, bronchitis, URI, or others. Laboratory Data Attestation: I reviewed the patient's lab results. 05/07/23 01:00 05/07/23 01:00 Lab Results 05/07/23 05/07/23 05/07/23 Range/Units 01:00 01:00 01:00 WBC 8.75 (4.8-10.8) K/ul RBC 3.78 L (4.20-5.40) M/uL Hgb 11.1 L (12.0-16.0) g/dl Hct 33.2 L (37.0-47.0) % MCV 87.8 (80.0-100.0) fL MCH 29.4 (25.0-34.0) pg MCHC 33.4 (32.0-36.0) g/dL RDW Std Deviation 40.8 (36.4-46.3) fL RDW Coeff of Marj 12.9 (11.5-14.5) % Plt Count 263 (130-400) K/uL MPV 11.8 (9.4-12.4) fL Immature Gran % (Auto) 0.2 % Neut % (Auto) 40.6 % Lymph % (Auto) 47.0 % Sharp % (Auto) 7.7 % Eos % (Auto) 3.5 % Baso % (Auto) 1.0 % Neut # (Auto) 3.55 (1.40-6.50) K/uL Lymph # (Auto) 4.11 H (1.2-3.4) K/uL Sharp # (Auto) 0.67 H (0.11-0.59) K/uL Eos # (Auto) 0.31 (0-0.50) K/uL Baso # (Auto) 0.09 (0-0.2) K/uL Immature Gran # (Auto) 0.02 (0.01-0.20) K/uL PT 11.1 (9.0-12.0) Seconds INR 1.0 (0.9-1.1) APTT 26.3 (21.0-31.0) Seconds PTT Ratio 0.9 Sodium 137 (136-145) mmol/L Potassium 4.0 (3.5-5.1) mmol/L Chloride 101 (98-107) mmol/L Carbon Dioxide 26 (21-32) mmol/L Anion Gap 10 (3-11) BUN 14 (6-23) mg/dl Creatinine 0.79 (0.6-1.2) mg/dl Est Cr Clr Drug Dosing Not Reportable Est GFR ( Amer) 90.4 ml/min Est GFR (Non-Af Amer) 78.0 ml/min BUN/Creatinine Ratio 17.7 (10-20) Glucose 127 H (70-99(Fasting)) mg/dl POC Glucose (70-99) mg/dl Calcium 9.2 (8.6-10.3) mg/dl Total Bilirubin 0.3 (0.2-1.0) mg/dl AST 17 (13-39) U/L ALT 10 (7-52) U/L Alkaline Phosphatase 65 (34-104) U/L Troponin I High Sens 22.3 H (0-14) pg/ml Total Protein 6.9 (6.0-8.3) gm/dl Albumin 4.3 (3.4-5.0) gm/dl Globulin 2.6 (2.5-4.0) gm/dl Albumin/Globulin Ratio 1.7 (0.9-2) Lipase 29 (11-82) U/L Urine Color Urine Appearance (Clear) Urine pH (4.5-7.5) Ur Specific [place] (1.000-1.030) Urine Protein (Negative) Urine Glucose (UA) (Negative) Urine Ketones (Negative) Urine Blood (Negative) Urine Nitrite (Negative) Urine Bilirubin (Negative) Urine Urobilinogen (Negative) Ur Leukocyte Esterase (Negative) Urine WBC (Auto) (0-5) /hpf Urine RBC (Auto) (0-4) /hpf U Hyaline Cast (Auto) (0-5) /lpf U Epithel Cells (Auto) (0-5) /lpf Urine Bacteria (Auto) (Negative) SARS-CoV-2, RNA, NAAT (NEGATIVE) 05/07/23 05/07/23 05/07/23 Range/Units 02:18 03:06 04:26 WBC (4.8-10.8) K/ul RBC (4.20-5.40) M/uL Hgb (12.0-16.0) g/dl Hct (37.0-47.0) % MCV (80.0-100.0) fL MCH (25.0-34.0) pg MCHC (32.0-36.0) g/dL RDW Std Deviation (36.4-46.3) fL RDW Coeff of Marj (11.5-14.5) % Plt Count (130-400) K/uL MPV (9.4-12.4) fL Immature Gran % (Auto) % Neut % (Auto) % Lymph % (Auto) % Sharp % (Auto) % Eos % (Auto) % Baso % (Auto) % Neut # (Auto) (1.40-6.50) K/uL Lymph # (Auto) (1.2-3.4) K/uL Sharp # (Auto) (0.11-0.59) K/uL Eos # (Auto) (0-0.50) K/uL Baso # (Auto) (0-0.2) K/uL Immature Gran # (Auto) (0.01-0.20) K/uL PT (9.0-12.0) Seconds INR (0.9-1.1) APTT (21.0-31.0) Seconds PTT Ratio Sodium (136-145) mmol/L Potassium (3.5-5.1) mmol/L Chloride (98-107) mmol/L Carbon Dioxide (21-32) mmol/L Anion Gap (3-11) BUN (6-23) mg/dl Creatinine (0.6-1.2) mg/dl Est Cr Clr Drug Dosing Est GFR ( Amer) ml/min Est GFR (Non-Af Amer) ml/min BUN/Creatinine Ratio (10-20) Glucose (70-99(Fasting)) mg/dl POC Glucose (70-99) mg/dl Calcium (8.6-10.3) mg/dl Total Bilirubin (0.2-1.0) mg/dl AST (13-39) U/L ALT (7-52) U/L Alkaline Phosphatase (34-104) U/L Troponin I High Sens 51.3 H* D (0-14) pg/ml Total Protein (6.0-8.3) gm/dl Albumin (3.4-5.0) gm/dl Globulin (2.5-4.0) gm/dl Albumin/Globulin Ratio (0.9-2) Lipase (11-82) U/L Urine Color Yellow Urine Appearance Clear (Clear) Urine pH 7.5 (4.5-7.5) Ur Specific [place] 1.007 (1.000-1.030) Urine Protein Negative (Negative) Urine Glucose (UA) Negative (Negative) Urine Ketones Negative (Negative) Urine Blood Negative (Negative) Urine Nitrite Negative (Negative) Urine Bilirubin Negative (Negative) Urine Urobilinogen Negative (Negative) Ur Leukocyte Esterase 1+ H (Negative) Urine WBC (Auto) 1-5 (0-5) /hpf Urine RBC (Auto) 0-4 (0-4) /hpf U Hyaline Cast (Auto) 0 (0-5) /lpf U Epithel Cells (Auto) >30 H (0-5) /lpf Urine Bacteria (Auto) Negative (Negative) SARS-CoV-2, RNA, NAAT NEGATIVE (NEGATIVE) 05/07/23 Range/Units 04:49 WBC (4.8-10.8) K/ul RBC (4.20-5.40) M/uL Hgb (12.0-16.0) g/dl Hct (37.0-47.0) % MCV (80.0-100.0) fL MCH (25.0-34.0) pg MCHC (32.0-36.0) g/dL RDW Std Deviation (36.4-46.3) fL RDW Coeff of Marj (11.5-14.5) % Plt Count (130-400) K/uL MPV (9.4-12.4) fL Immature Gran % (Auto) % Neut % (Auto) % Lymph % (Auto) % Sharp % (Auto) % Eos % (Auto) % Baso % (Auto) % Neut # (Auto) (1.40-6.50) K/uL Lymph # (Auto) (1.2-3.4) K/uL Sharp # (Auto) (0.11-0.59) K/uL Eos # (Auto) (0-0.50) K/uL Baso # (Auto) (0-0.2) K/uL Immature Gran # (Auto) (0.01-0.20) K/uL PT (9.0-12.0) Seconds INR (0.9-1.1) APTT (21.0-31.0) Seconds PTT Ratio Sodium (136-145) mmol/L Potassium (3.5-5.1) mmol/L Chloride (98-107) mmol/L Carbon Dioxide (21-32) mmol/L Anion Gap (3-11) BUN (6-23) mg/dl Creatinine (0.6-1.2) mg/dl Est Cr Clr Drug Dosing Est GFR ( Amer) ml/min Est GFR (Non-Af Amer) ml/min BUN/Creatinine Ratio (10-20) Glucose (70-99(Fasting)) mg/dl POC Glucose 104 H (70-99) mg/dl Calcium (8.6-10.3) mg/dl Total Bilirubin (0.2-1.0) mg/dl AST (13-39) U/L ALT (7-52) U/L Alkaline Phosphatase (34-104) U/L Troponin I High Sens (0-14) pg/ml Total Protein (6.0-8.3) gm/dl Albumin (3.4-5.0) gm/dl Globulin (2.5-4.0) gm/dl Albumin/Globulin Ratio (0.9-2) Lipase (11-82) U/L Urine Color Urine Appearance (Clear) Urine pH (4.5-7.5) Ur Specific [place] (1.000-1.030) Urine Protein (Negative) Urine Glucose (UA) (Negative) Urine Ketones (Negative) Urine Blood (Negative) Urine Nitrite (Negative) Urine Bilirubin (Negative) Urine Urobilinogen (Negative) Ur Leukocyte Esterase (Negative) Urine WBC (Auto) (0-5) /hpf Urine RBC (Auto) (0-4) /hpf U Hyaline Cast (Auto) (0-5) /lpf U Epithel Cells (Auto) (0-5) /lpf Urine Bacteria (Auto) (Negative) SARS-CoV-2, RNA, NAAT (NEGATIVE) Imaging Data My Impression: X-rays of the right ankle and foot were interpreted by myself as negative for acute fracture or dislocation. Radiology report is still pending. Chest x-ray was interpreted by myself and shows no acute cardiopulmonary etiology. Radiology report still pending. MDM Narrative I examined the patient. An IV lock was placed and labs were drawn. She was giv en normal saline solution 500 mL bolus. She had already taken 81 mg of aspirin and was given an additional 243 mg of aspirin chewed in the emergency department. She declined any medication for pain while in the emergency department. The patient had onset of chest pain at 11 PM tonight that resolved after 2 nitro that she took at home. Currently denies any chest pain. Continuous equipment monitor phototypesetting: Order was placed for continuous equipment monitor phototypesetting. Patient was placed on the equipment monitor phototypesetting and continuous pulse ox. Patient was noted to be in normal sinus rhythm at an initial rate of 90 bpm per my interpretation. Initial EKG interpreted by myself as normal sinus rhythm at 100 bpm with no significant change from her previous EKG and no acute ST or T wave changes. Repeat EKG with second troponin was interpreted by myself as sinus rhythm at 76 bpm with no acute ST or T wave changes and no acute changes from her previous EKGs. White blood cell count was normal. Hemoglobin stable at 11.1. Coags were normal. Glucose 127, but CMP otherwise normal. Lipase normal. Urinalysis without evidence for infection. COVID-negative. First high-sensitivity troponin was elevated at 22.3, but appears consistent with her baseline. 2-hour repeat high-sensitivity troponin did increase to 51.3 which is abnormal compared to her baseline. The patient still denied any chest pain while in the emergency department. Chest x-ray was interpreted by myself as negative for acute cardiopulmonary etiology. Radiology report still pending. X-rays of the right ankle and right foot were interpreted by myself as negative for acute fracture or dislocation. Radiology report still pending. The patient was placed in an Doug wrap under my direction. Neurovascular status rechecked and intact. I had a meaningful discussion about this patient with Dr. Rose who agrees with my assessment and the treatment plan. Due to the increase in her troponin along with her chest pain that resolved after nitro at home, we feel the patient requires admission for further evaluation and treatment. I spoke with the on- call hospitalist who agreed to admit the patient for further management. Please refer to their dictation for further details. The patient's care was transferred in stable condition. Impression & Plan Chest pain, Elevated troponin, Contusion of right foot Discharge Plan Visit Data Chief Complaint: Foot Injury/Pain Stated Complaint: rt. FOOT INJURY ED Provider: Briana Rose ED Midlevel Provider: Abbey Pinedo Discharge Problem: Chest pain, Elevated troponin, Contusion of right foot Patient Disposition: Admitted As Inpatient Condition: Good Discharge Instructions Interventions: ED Discharge Assessment Last Done: 05/07/23 08:00
[2023-05-07] MEDS ORDERED: SODIUM CHLORIDE 0.9% 500 ML IV STA (01:22)
[2023-05-07] MEDS ORDERED: ASPIRIN CHEW 324 MG PO STA (01:22)
[2023-05-07 01:40] LABS: Basophils # (auto) 0.09 K/uL (0-0.2); Eosinophils # (auto) 0.31 K/uL (0-0.50); Eosinophils % (auto) 3.5 %; Hematocrit (blood only) 33.2 % (37.0-47.0); Hemoglobin 11.1 g/dl (12.0-16.0); Immature Granulocytes # (auto) 0.02 K/uL (0.01-0.20); Immature Granulocytes % (auto) 0.2 %; Lymphocytes # (auto) 4.11 K/uL (1.2-3.4); Mean Corpuscular Hemoglobin 29.4 pg (25.0-34.0); Mean Corpuscular Hgb Conc 33.4 g/dL (32.0-36.0); Mean Corpuscular Volume 87.8 fL (80.0-100.0); Mean Platelet Volume 11.8 fL (9.4-12.4); Monocytes # (auto) 0.67 K/uL (0.11-0.59); Monocytes % (auto) 7.7 %; Neutrophils # (auto) 3.55 K/uL (1.40-6.50); Neutrophils % (auto) 40.6 %; Platelet Count 263 K/uL (130-400); RDW Coefficient of Variation 12.9 % (11.5-14.5); RDW Standard Deviation 40.8 fL (36.4-46.3); Red Blood Count 3.78 M/uL (4.20-5.40); White Blood Count 8.75 K/ul (4.8-10.8)
[2023-05-07 01:57] LABS: Alanine Aminotransferase 10 U/L (7-52); Albumin Globulin Ratio 1.7 (0.9-2); Albumin Level 4.3 gm/dl (3.4-5.0); Alkaline Phosphatase 65 U/L (34-104); Anion Gap 10 (3-11); Aspartate Aminotransferase 17 U/L (13-39); BUN Creatinine Ratio 17.7 (10-20); Bilirubin,Total 0.3 mg/dl (0.2-1.0); Blood Urea Nitrogen 14 mg/dl (6-23); Calcium 9.2 mg/dl (8.6-10.3); Carbon Dioxide 26 mmol/L (21-32); Chloride 101 mmol/L (98-107); Est GFR (African American) 90.4 ml/min; Globulin 2.6 gm/dl (2.5-4.0); Glucose 127 mg/dl (70-99(Fasting)); Lipase 29 U/L (11-82); Sodium 137 mmol/L (136-145); Total Protein 6.9 gm/dl (6.0-8.3)
[2023-05-07 02:03] LABS: Troponin I High Sensitivity 22.3 pg/ml (0-14)
[2023-05-07 02:08] LABS: Partial Thromboplastin Ratio 0.9; Partial Thromboplastin Time 26.3 Seconds (21.0-31.0); Prothrombin Time 11.1 Seconds (9.0-12.0)
[2023-05-07 02:50] LABS: Appearance Urine Clear (Clear); Bacteria Urine Automated Negative (Negative); Bilirubin Urine Negative (Negative); Blood Urine Negative (Negative); Cast Urine Automated 0 /lpf (0-5); Color Urine Yellow; Epithelial Cell Urine Auto >30 /lpf (0-5); Glucose Urine UA Negative (Negative); Ketones Urine Negative (Negative); Leukocyte Esterase Urine 1+ (Negative); Nitrite Urine Negative (Negative); Protein Urine Negative (Negative); RBC Urine Automated 0-4 /hpf (0-4); Specific Gravity Urine 1.007 (1.000-1.030); Urobilinogen Urine Negative (Negative); pH Urine 7.5 (4.5-7.5)
--- NOTE | 2023-05-07 07:10 | XRay Report ---
XR ankle RT min 3V routine CLINICAL HISTORY: trauma COMPARISON: None FINDINGS: Alignment of the right ankle is anatomic. There is no acute fracture. Talar dome is intact . Minimal plantar calcaneal spurring is noted. Calcifications project over the distal Achilles. There is moderate vascular calcification. IMPRESSION: No acute fracture or dislocation within the right ankle. ACT 112: Negative or not required by law. Electronically signed by: Toby Caraballo M.D. 05/07/2023 7:09 AM
--- NOTE | 2023-05-07 07:11 | XRay Report ---
XR chest 1V portable CLINICAL HISTORY: Chest pain, nonspecific COMPARISON STUDY: Chest CT January 14, 2022. Chest radiograph July 23, 2022. FINDINGS: Lung volumes are normal. Lungs are clear. There is no pneumothorax or pleural effusion. Car diac size is normal. Mediastinal contours are normal. There is no evidence for pulmonary edema. IMPRESSION: No acute cardiopulmonary findings. ACT 112: Negative or not required by law. Electronically signed by: Toby Caraballo M.D. 05/07/2023 7:10 AM
--- NOTE | 2023-05-07 07:40 | XRay Report ---
XR foot RT min 3V routine HISTORY: 67 years-old Female trauma acute posttraumatic pain of the right foot and ankle COMPARISON: Ankle radiographs of same day TECHNIQUE: 3 views of the right foot FINDINGS: Demineralized appearance of the bones. Mild osteoarthritis. Mild diffuse soft tissue swelling without acute fracture, dislocation or opaque foreign body. Arterial calcifications. Spurring of the calcane us. IMPRESSION: No acute fracture or dislocation. ACT 112: Negative or not required by law. The above report was generated using voice recognition software. It may contain grammatical, syntax o r spelling errors. Electronically signed by: Pk Holt M.D. 05/07/2023 7:37 AM
--- NOTE | 2023-05-07 07:55 | History and Physical Report ---
DATE OF ADMISSION: 05/07/2023. CHIEF COMPLAINT: Chest pain and also right foot injury. 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 The says around 4:30 p.m. yesterday, she dropped a photo frame on the right foot. Has some trouble walking since the injury. Then around 11:00 p.m. tonight when she was going to sleep, she developed left-sided chest pain. She took two Nitro that resolved the pain. Because of history of previous heart attack, stent, , son brought her to the hospital. She states she is taking aspirin every day. The patient currently denies any chest pain. Somewhat hard to hear. Some questions I had to write in a paper, denies any headache. Vision is okay. No runny nose, no sore throat, afebrile. She says she is swallowing okay. No nausea, no abdominal pain. Normal bowel and bladder movements. Resting comfortably, hemodynamically stable. Wants to go home, but okay to stay overnight. ALLERGIES: ATORVASTATIN, PREDNISONE. PAST MEDICAL HISTORY: Significant as above. The patient had cardiac stent to proximal LAD. The patient also has MELAS syndrome, not a standard statin candidate. MEDICATIONS: The patient is on amlodipine 2.5 mg p.o. daily, aspirin 81 mg p.o. daily, Excedrin Migraine 1 tablet p.o. q. 6 hours p.r.n., Coenzyme Q10 100 mg p.o. daily, insulin NovoLog FlexPen 6 units subcutaneous t.i.d. with meals, Lantus 60 units subcutaneous at bedtime, Lipotriad Vision Support one capsule in a.m., metoprolol tartrate 37.5 mg p.o. b.i.d., Nexletol 180 mg p.o. daily, nitroglycerin 0.4 mg sublingual p.r.n. Repatha 140 mg subcutaneous every two weeks. PAST SURGICAL HISTORY: Left heart catheterization, stent placement, EGDs, laparoscopic cholecystectomy, muscle biopsy right thigh, dilatation of Schatzki ring with EGD. FAMILY HISTORY: Significant for brother has diabetes; father has diabetes, father had CAD in his 50s; mother had heart disease in her 70s; daughter has MELAS syndrome; son has retinal detachment. SOCIAL HISTORY: Currently lives with her son. Former smoker, quit in 1991. No alcohol use. No drug use. REVIEW OF SYSTEMS: As per HPI. Rest of review of systems is negative. PHYSICAL EXAMINATION: GENERAL: The patient is of moderate build, not in acute distress, somewhat hard to hear. VITAL SIGNS: Temperature 36.5, pulse 97, respiratory rate 20, blood pressure 131/85, oxygen 99% on room air. HEENT: Pupils equal, round and reactive to light. Oral mucosa moist. NECK: No JVD, no neck masses. CARDIOVASCULAR: S1 and S2 heard. Regular rate and rhythm. No murmur, no gallop. RESPIRATORY SYSTEM: Normal AP diameter. No accessory muscle use. No wheezing, no crackles. ABDOMEN: Soft, bowel sounds present, nontender, no distention. CENTRAL NERVOUS SYSTEM: Alert and oriented. Speech is somewhat pressured. Insight is okay. Obeys simple commands. Moves extremities. EXTREMITIES: No edema or erythema seen. Right foot, bruise seen in the dorsal aspect. LABORATORY DATA: WBC 8.7, hemoglobin 11.1, hematocrit 33.2, platelets 263. PT 11.1, INR 1, APTT 26.3. Sodium 137, potassium 4, chloride 101, bicarbonate 26, BUN 14, creatinine 0.7, serum glucose 127, calcium 9.2, total bilirubin 0.3, AST 17, ALT 10, alkaline phosphatase 65. Troponin I high sensitivity 51.3, lipase 29. Urinalysis negative. SARS-CoV-2 rapid test negative. IMAGING DATA: Chest x-ray, no acute findings. Foot and ankle x-rays on the right side pending. EKG: Sinus rhythm with sinus arrhythmia with short LA at a rate of 76. No significant change was found. ASSESSMENT AND PLAN: This is a 67-year-old female who presents with dropping her photo frame on her right foot, some ambulatory dysfunction and also developed chest pain in the night time, which resolved with nitro. 1. Chest pain: Resolved after two nitros at home. Rule out acute coronary syndrome. History of cardiac stent placement. Initial troponin was 22, which was at baseline elevation, but repeat after two hours later 51. Will observe in tele floor. Will follow serial enzymes, echocardiogram. Will keep her n.p.o. Consult cardiology for further recommendation. If troponins tend to trend higher or develops chest pain again , will start on heparin. Await cardiac input. 2. History of coronary artery disease, status post stent: Continue her aspirin, metoprolol tartrate. The patient takes Repatha shots. 3. History of cerebrovascular accident: On aspirin and cholesterol medication. 4. Hypertension: On amlodipine, metoprolol tartrate. Will monitor the blood pressure. 5. History of diabetes: Continue with Lantus. The patient is n.p.o. Cut back on Lantus dose as she is npo currently. If she is starting to have dinner, will continue full dose. Insulin sliding scale. ISS. Follow the blood sugars. HbA1c levels. 6. History of MELAS syndrome. 7. Deep venous thrombosis prophylaxis: Sequential compression devices for now. DISPOSITION: Closely monitor in the tele floor. PT/OT prior to discharge. Social service to help with discharge planning. Job ID: [id number] MTDD
[2023-05-07] MEDS ORDERED: POLYETHYLENE (MIRALAX) 17 GM PACK PO PRN (08:30)
[2023-05-07] MEDS ORDERED: DEXTROSE 50% 50 ML SYRINGE IV PRN (08:30)
[2023-05-07] MEDS ORDERED: GLUCOSE 10 TAB/TUBE PO PRN (08:30)
[2023-05-07] MEDS ORDERED: GLUCOSE 40% GEL 15 GM TUBE PO PRN (08:30)
[2023-05-07] MEDS ORDERED: CARBOHYDRATES FOR HYPOGLYCEMIA PO PRN (08:30)
[2023-05-07] MEDS ORDERED: ACETAMINOPHEN 325 MG TAB PO PRN (08:30)
[2023-05-07] MEDS ORDERED: NITROGLYCERIN SL 0.4 MG/TAB TAB SL PRN (08:30)
[2023-05-07] MEDS ORDERED: GLUCAGON FOR INJ 1 MG VIAL SQ PRN (08:30)
[2023-05-07] MEDS ORDERED: Patient's HEIGHT &/or WEIGHT Needed SCH (08:45)
[2023-05-07] MEDS ORDERED: METOPROLOL TARTRATE 25 MG TAB PO SCH (09:00)
[2023-05-07] MEDS ORDERED: NON-FORMULARY MEDICATION (Coenzyme Q10 [Coq-10] 100 mg Capsule) PO SCH (09:00)
[2023-05-07] MEDS ORDERED: [UNRECOGNIZED DRUG - OTHER] PO SCH (09:00)
[2023-05-07] MEDS ORDERED: amLODIPine BESYLATE 5 MG TAB PO SCH (09:00)
[2023-05-07] MEDS ORDERED: ASPIRIN 81 MG ECTAB PO SCH (09:00)
[2023-05-07] MEDS: INSULIN ASPART PER UNIT CHARGE SC SCH ×2 (09:25→12:15)
--- NOTE | 2023-05-07 10:41 | Cardiology Consultation ---
Date of Consultation May 07, 2023 Assessment & Plan (1) Chest pain: (2) Hypertension: Plan Patient admitted with right foot pain after injury and left sided chest pain, resolving with 2 SL nitro. EKG without acute changes. She has T wave inversion in lateral leads but this has been present in the past. HS troponin was minimally elevated at 22, increasing to 51, and then down to 41 without recurrent chest pain symptoms. Per review of past admissions, her HS troponin is chronically borderline elevated. Her BP was slightly elevated on arrival as well, likely situational and due to foot pain. BP now improved. Her echocardiogram this admission revealed normal LVEF without wall motion abnormalities and stable findings. At this time, would recommend no further cardiac testing. Continue current outpatient medications including ASA, amlodipine, metoprolol, and PCSK9 inhib. Case discussed with Dr. Thomas I spent a total of 60 minutes on the date of service in preparation, delivery, and documentation of the care provided to this patient, excluding any time spent in the performance of separately billed services. Quynh Marrero PA-C Department of Cardiology, [facility] This chart was completed in part utilizing Speech Voice Recognition Software. Grammatical errors, random word insertions, pronoun errors, and incomplete sentences are an occasional consequence of this system due to software limitations, ambient noise, and hardware issues. Any formal questions or concerns about the content, text, or information contained within the body of this dictation should be directly addressed to the provider for clarification. Supervising Physician Co-Signing Physician Notes Supervising Physician Attestation: I have personally performed a history and physical examination on the patient. I agree with the physician senior it assistant's findings and plan as documented with the following additions. Subjective: Patient well-known to the undersigned as I have followed her on an inpatient outpatient basis for years. She was in a good humor at the time of my assessment. Denies any further chest discomfort episodes. Telemetry with stable findings of sinus rhythm in the 80s. Exam: Cardiovascular: Regular rhythm, no murmurs, no edema Data: Echocardiogram performed today and interpreted independently: No regional wall motion abnormalities LVEF in the range of 55-60% Mild tricuspid regurgitation Mild mitral regurgitation Grade 1 diastolic dysfunction Compared to previous study no significant interval change Assessment and Plan: -Patient with transient chest discomfort in the setting of having injured her foot. Symptoms relieved with sublingual nitroglycerin. Mildly elevated high- sensitivity troponin measurements, with no significant repolarization changes on EKG, and reassuring echocardiogram. Patient with known LAD stent and chronic subtotal occlusion of the RPDA branch of the right coronary artery that was not amenable to revascularization. At present, work-up thus far has been reassuring. She has not had any other recent anginal episodes. Patient stable for discharge from a cardiac perspective on her prior to hospital medications including aspirin, metoprolol, amlodipine. She is not on a statin due to her history of MELAS syndrome. I spent a total of 20 minutes on the date of service in preparation, delivery, and documentation of the care provided to this patient, excluding any time spent in the performance of separately billed services. Sudhir Thomas, DO History of Present Illness Reason for Consultation: Chest pain; History of CAD Requesting Physician: Dr. Erickson Attending Physician: Dr. Thomas History of Present Illness Patient is a 67 year old female who was seen in cardiology consultation today at the request of Dr. Erickson upon admission to [facility] for chest pain. Patient known to [facility] Cardiology, Dr. Thomas. History is complex and includes: 1. Coronary heart disease, non STEMI, prompting cardiac catheterization, drug- eluting stent to the proximal LAD, [facility], 05/16/2020, subtotal occlusion of the RPDA branch of the distal right coronary artery supplied with ednv-gs-wmaya collaterals, treated medically, not amenable to revascularization 2. Intolerance of Brilinta prompting transition to clopidogrel 3. Recurrent angina prompting nuclear stress test November,, with abnormal EKG response, symptoms of angina reproduced 4. Repeat cardiac catheterization, [facility], 12/12/2020 with findings of patent LAD stent, distal RPDA stenosis once again observed with hfun-oh-esjuq collaterals unchanged 5. MELAS syndrome, (myopathy, encephalopathy, lactic acidosis and stroke) therefore not statin candidate 6. EGD , 2015, Mild Schatzki ring. Dilated 7. January 2022 with an acute left MCA infarction Patient reports she was in normal state of health and active until yesterday when a picture fell off the wall onto her foot causing significant pain. She had trouble ambulating the rest of the day. Upon trying to get ready for bed, she reported right foot pain and then when she went to lay down in bed, she developed left sided chest pain, described as a tightness. Symptoms lasted several minutes so she took 1 SL nitro. Symptoms mildly improved and then she took another nitro. Given her foot pain and chest pain, her son brought her to the ER for evaluation. Upon arrival to the ER, HS troponin minimally elevated at 22 (which appears to be her baseline), increased slightly to 51, and then back to 41 overnight. her chest pain had resolved by the time she got to the ER. EKG demonstrated NSR with T wave abnormality in lateral leads I, AVL, but this was similar to 2021 EKG in system. Foot was without fracture. She was admitted for observation overnight. At time of consult, no recurrent chest pain. she is resting in bed and feeling well. Foot pain also improving. Denies SOB, palpitations, dizziness. She denies recent or recurrent chest pain at home as well. Her BP was slightly elevated in ER, but trending down with home medications. Echocardiogram has been done and is pending. She currently feels well, resting in bed without complaints. Allergies Allergy/AdvReac Type Severity Reaction Status Date / Time atorvastatin AdvReac Intermediate myalgias, Verified 05/07/23 01:36 dysarthria prednisone AdvReac Intermediate metabolic-h Verified 05/07/23 01:36 yperglycemi a Home Medications Medication Instructions Recorded Confirmed Type insulin aspart U-100 100 unit/mL 6 unit subcut TIDM 05/14/20 05/07/23 History (3 mL) subcutaneous pen (Novolog FlexPen U-100 Insulin aspart) insulin glargine 100 unit/mL (3 16 unit subcut HS 05/14/20 05/07/23 History mL) subcutaneous pen (Lantus Solostar U-100 Insulin) vit A 12,500 unit-zinc 12.5 1 cap PO QAM 05/14/20 05/07/23 History qg-hhwsmt-jcreu-bilberry-herb #261 capsule (Lipotriad Vision Support) aspirin 81 mg tablet,delayed 81 mg PO QAM #90 tabs 05/17/20 05/07/23 Rx release nitroglycerin 0.4 mg sublingual 0.4 mg sublingual UD PRN chest 05/17/20 05/07/23 Rx tablet (Nitrostat) pain #30 tabs amlodipine 2.5 mg tablet 2.5 mg PO DAILY 08/10/21 05/07/23 History evolocumab 140 mg/mL subcutaneous 140 mg subcut .[id number] 08/10/21 05/07/23 History pen injector (Jaime Nicholson) hydrocortisone-acetic acid 1 %-2 % 3 drp otic (ear) BID PRN ITCHY EARS 08/10/21 05/07/23 History ear drops bempedoic acid 180 mg tablet 180 mg PO DAILY 01/14/22 05/07/23 History (Nexletol) coenzyme Q10 100 mg capsule 100 mg PO DAILY 01/14/22 05/07/23 History (CoQ-10) acetaminophen 325 mg capsule 650 mg PO Q8H PRN fever or pain 05/07/23 Rx (Tylenol) #60 caps iftxftq-bbwkqgzoordnx-bjxzbvgj 250 1 tab PO Q6H PRN Headache 05/07/23 05/07/23 History mg-250 mg-65 mg tablet (Excedrin Migraine) diclofenac sodium 1 % topical gel 2 g topical QID #100 grams 05/07/23 Rx (Voltaren Arthritis Pain) metoprolol tartrate 25 mg tablet 37.5 mg PO BID 05/07/23 05/07/23 History Patient History Medical History Atherosclerosis of coronary artery CAD (coronary artery disease) History of TIA (transient ischemic attack) HLD (hyperlipidemia) Hypertension Macular degeneration MELAS (mitochondrial encephalopathy, lactic acidosis and stroke-like episodes) Mnire's disease Schatzki's ring Statin intolerance Type 1 diabetes mellitus Surgical History History of cholecystectomy History of cochlear implant Left in 2014 History of colonoscopy with polypectomy History of heart artery stent History of hysterectomy History of left heart catheterization 07/2019 which revealed 30% proximal LAD otherwise clean coronaries Family History Mother Coronary heart disease, Onset Age: 70 Father Coronary heart disease, Onset Age: 50 Social History Smoking Status: Never smoker Second Hand Exposure: No; Do You Dip or Chew Tobacco: No; Hx Alcohol Use: No Hx Substance Use: No Preferred Language: Kyrgyz Communication Ability: Impaired Communication Ability Comment: Left cochlear implant Hearing Ability: Cochlear Implant Key Holder Required: No Beliefs That Will Affect Care: None marital status: Current Living Situation: Family Current Living Situation Comment: SON LIVES WITH PATIENT current occupational status: retired and disabled How many Children do You have: 2 Other Information That Helps Us Care for You: No Feels Safe at Home: Yes Safety Concerns: Feels Safe At This Time Assistive Devices: Glasses and Hearing Aid - Left Assistive Devices Comment: Left cochlear implant device, extra battery in belongings bag Review of Systems Review of Systems: All systems reviewed & are unremarkable except as noted in HPI & below Physical Exam Constitutional: WD/WN, vitals as above well developed; no acute distress Neck: trachea midline, no thyromegaly normal visual inspection Respiratory: normal respiratory effort, lungs clear to auscultation Cardiovascular: Rate/Rhythm: regular rate and regular rhythm Heart Sounds: normal S1 and normal S2; no murmur Results & Data Vital Signs (Past 12 Hours) Vital Signs Temp Pulse Pulse Resp BP BP Pulse Ox 05/07/23 08:30 05/07/23 08:31 36.4 C L 95 H 20 153/90 H 99 05/07/23 07:33 79 99 05/07/23 06:07 131/85 05/07/23 05:48 97 H 20 99 05/07/23 05:00 69 05/07/23 00:59 86 05/07/23 03:39 72 20 138/76 97 05/07/23 01:00 36.5 C 85 22 154/78 H 98 O2 Del Method 05/07/23 08:30 Room Air 05/07/23 08:31 Room Air 05/07/23 07:33 Room Air 05/07/23 06:07 05/07/23 05:48 Room Air 05/07/23 05:00 05/07/23 00:59 05/07/23 03:39 05/07/23 01:00 Room Air Laboratory Results Cardiac Enzymes 05/07/23 05/07/23 05/07/23 Range/Units 01:00 03:06 09:29 AST 17 (13-39) U/L Troponin I High Sens 22.3 H 51.3 H* D 41.3 H D (0-14) pg/ml Coagulation 05/07/23 Range/Units 01:00 PT 11.1 (9.0-12.0) Seconds APTT 26.3 (21.0-31.0) Seconds CBC 05/07/23 Range/Units 01:00 WBC 8.75 (4.8-10.8) K/ul RBC 3.78 L (4.20-5.40) M/uL Hgb 11.1 L (12.0-16.0) g/dl Hct 33.2 L (37.0-47.0) % Plt Count 263 (130-400) K/uL Neut # (Auto) 3.55 (1.40-6.50) K/uL Lymph # (Auto) 4.11 H (1.2-3.4) K/uL [place] # (Auto) 0.67 H (0.11-0.59) K/uL Eos # (Auto) 0.31 (0-0.50) K/uL Baso # (Auto) 0.09 (0-0.2) K/uL Comprehensive Metabolic Panel 05/07/23 Range/Units 01:00 Sodium 137 (136-145) mmol/L Potassium 4.0 (3.5-5.1) mmol/L Chloride 101 (98-107) mmol/L Carbon Dioxide 26 (21-32) mmol/L BUN 14 (6-23) mg/dl Creatinine 0.79 (0.6-1.2) mg/dl Glucose 127 H (70-99(Fasting)) mg/dl Calcium 9.2 (8.6-10.3) mg/dl AST 17 (13-39) U/L ALT 10 (7-52) U/L Alkaline Phosphatase 65 (34-104) U/L Total Protein 6.9 (6.0-8.3) gm/dl Albumin 4.3 (3.4-5.0) gm/dl Intake and Output 05/06/23 05/07/23 05/07/23 22:59 06:59 14:59 Intake Total 500 / 500 Balance 500 / 500 Intake: IV 500 / 500 Sodium Chloride 0.9% 500 ml @ 500 / 500 999 mls/hr IV .Q31M STA Rx#: [id number] Other: Weight 55.8 kg 50.6 kg Weight Measurement Method Built in Bedscale Built in Bedscale Patient Weight 05/08/23 06:59 Weight 50.6 kg Diagnostic Findings Telemetry reviewed: NSR in the 60-100 bpm range. No concerning arrhythmias Repeat EKG: Sinus rhythm Old Septal infarct (cited on or before 19-JAN-2022) Possible Lateral infarct (cited on or before 19-JAN-2022) No significant changes noted EKG reviewed upon arrival to ER Normal sinus rhythm Left axis deviation Old Septal infarct (cited on or before 19-JAN-2022) T wave inversion in I, AVL Compared with prior EKG in 2021, no significant changes noted. Compared with outpatient EKG dated Nov 2020, T wave inversion in I, AVL is new. however T wave inversion previously noted in inferior leads has improved Chest xray: IMPRESSION: No acute cardiopulmonary findings. echo report reviewed dated May 07, 2023: Normal LV wall thickness No regional wall motion abnormalities EF 55-60% RV is normal in size and function. Mild TR Mild MR no pulm htn. Grade I diastolic dysfunction No change compared to prior study Medications Administered Current Inpatient Medications Acetaminophen (Acetaminophen 325 Mg Tab) 650 mg PO Q4H PRN PRN Reason: Pain or Fever Stop: 06/06/23 08:29 Amlodipine Besylate (Amlodipine Besylate 5 Mg Tab) 2.5 mg PO DAILY [place] Stop: 06/06/23 08:59 Last Admin: 05/07/23 09:24 Dose: 2.5 mg Aspirin (Aspirin 81 Mg Ectab) 81 mg PO QAM [place] Stop: 06/06/23 08:59 Last Admin: 05/07/23 09:24 Dose: 81 mg Dextrose (Dextrose 50% 50 Ml Syringe) 25 - 50 ml IV UD PRN; Protocol PRN Reason: Hypoglycemia Protocol Stop: 06/06/23 08:29 Glucagon (Glucagon For Inj 1 Mg Vial) 1 mg SQ UD PRN; Protocol PRN Reason: Hypoglycemia Protocol Stop: 06/06/23 08:29 Glucose (Glucose 10 Tab/Tube) 4 - 8 tab PO UD PRN; Protocol PRN Reason: Hypoglycemia Treatment Stop: 06/06/23 08:29 Glucose (Glucose 40% Gel 15 Gm Tube) 15 - 30 gm PO UD PRN; Protocol PRN Reason: Hypoglycemia Protocol Stop: 06/06/23 08:29 Insulin Aspart (Insulin Aspart Per Unit Charge) 0 units SC Q6H [facility] Stop: 06/06/23 08:29 Last Admin: 05/07/23 09:25 Dose: Not Given Insulin Glargine (Lantus Per Unit Charge) 10 units SQ HS [facility] Stop: 06/06/23 20:59 Metoprolol Tartrate (Metoprolol Tartrate 25 Mg Tab) 37.5 mg PO BID [place] Stop: 06/06/23 08:59 Last Admin: 05/07/23 09:24 Dose: 37.5 mg Miscellaneous (Nexletol~Order Awaiting Action) 1 each N/A QS [facility] Stop: 06/06/23 15:59 Miscellaneous (Carbohydrates For Hypoglycemia ) 15 - 30 gm PO UD PRN PRN Reason: Hypoglycemia Protocol Stop: 06/06/23 08:29 Miscellaneous (Patient's Height &/Or Weight Needed) 1 each N/A Q2H [facility] Stop: 06/06/23 08:44 Last Admin: 05/07/23 09:25 Dose: 1 each Nitroglycerin (Nitroglycerin Sl 0.4 Mg/Tab Tab) 0.4 mg SL Q5M PRN PRN Reason: Chest Pain Stop: 06/06/23 08:29 Polyethylene Glycol (Polyethylene (Miralax) 17 Gm Pack) 17 gm PO DAILY PRN PRN Reason: Constipation Stop: 06/06/23 08:29 (1) Chest pain Chest pain type: unspecified Qualified Code(s): R07.9 - Chest pain, unspecified
--- NOTE | 2023-05-07 11:47 | Electrocardiogram Report ---
Test Reason : Blood Pressure : / mmHG Vent. Rate : 100 BPM Atrial Rate : 100 BPM P-R Int : 112 ms QRS Dur : 084 ms QT Int : 362 ms P-R-T Axes : 065 -49 125 degrees QTc Int : 466 ms Normal sinus rhythm Possible Left atrial enlargement Left axis deviation Poor R wave progression, consider anterior MS vs. lead placement vs. LVH Abnormal ECG When compared with ECG of 23-JUL-2022 18:46, No significant change was found Confirmed by Marin Bradley ([id number]) on 05/07/2023 11:47:26 AM Referred By: REFERRED SELF Confirmed By:James Bradley
--- NOTE | 2023-05-07 12:13 | Electrocardiogram Report ---
Test Reason : Blood Pressure : / mmHG Vent. Rate : 076 BPM Atrial Rate : 076 BPM P-R Int : 110 ms QRS Dur : 084 ms QT Int : 388 ms P-R-T Axes : 054 -47 144 degrees QTc Int : 436 ms Sinus rhythm with sinus arrhythmia Left axis deviation Poor R wave progression, consider anterior IL vs. lead placement vs. LVH Possible Lateral infarct (cited on or before 19-JAN-2022) Nonspecific ST abnormality Abnormal ECG When compared with ECG of 07-MAY-2023 00:55, (unconfirmed) No significant change was found Confirmed by Marin Bradley ([id number]) on 05/07/2023 12:13:15 PM Referred By: REFERRED SELF Confirmed By:James Bradley
--- NOTE | 2023-05-07 12:20 | Communication Note ---
Date of Service: May 07, 2023 Patient seen and examined after transfer to floors. She is lying in the bed comfortably. Reports that chest pain has resolved. Reports that the foot pain has improved as well. Constitutional: WD/WN, vitals as above, NAD, sitting up in bed, pleasant, conversing easily Respiratory: normal respiratory effort, lungs clear to auscultation, no wheeze, rales, rhonchi. Normal insp/exp effort, no accessory muscle use Cardiovascular: RRR, no murmur, no edema Vessels: no JVD or carotid bruit Chest: normal inspection of chest Abdomen: normal bowel sounds, soft, nontender, no hepatosplenomegaly Musculoskeletal: no cyanosis or clubbing, extremities motor strength 5/5. Bluish discoloration on dorsal aspect of right foot. Skin: no rashes, warm and dry normal turgor Neurologic: PERRL, EOMI, accommodation nl, no face palsy, no dysarthria CN's II- XI intact bilaterally and moves all extremities Psychiatric: A+Ox3, euthymic affect
--- NOTE | 2023-05-07 15:14 | Discharge Summary ---
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 The says around 4:30 p.m. yesterday, she dropped a photo frame on the right foot. Has some trouble walking since the injury. Then around 11:00 p.m. tonight when she was going to sleep, she developed left-sided chest pain. She took two Nitro that resolved the pain. Because of history of previous heart attack, stent, , son brought her to the hospital. She states she is taking aspirin every day. The patient currently denies any chest pain. Somewhat hard to hear. Some questions I had to write in a paper, denies any headache. Vision is okay. No runny nose, no sore throat, afebrile. She says she is swallowing okay. No nausea, no abdominal pain. Normal bowel and bladder movements. Resting comfortably, hemodynamically stable. Wants to go home, but okay to stay overnight. Admission Exam Per Admitting Provider GENERAL: The patient is of moderate build, not in acute distress, somewhat hard to hear. VITAL SIGNS: Temperature 36.5, pulse 97, respiratory rate 20, blood pressure 131/85, oxygen 99% on room air. HEENT: Pupils equal, round and reactive to light. Oral mucosa moist. NECK: No JVD, no neck masses. CARDIOVASCULAR: S1 and S2 heard. Regular rate and rhythm. No murmur, no gallop. RESPIRATORY SYSTEM: Normal AP diameter. No accessory muscle use. No wheezing, no crackles. ABDOMEN: Soft, bowel sounds present, nontender, no distention. CENTRAL NERVOUS SYSTEM: Alert and oriented. Speech is somewhat pressured. Insight is okay. Obeys simple commands. Moves extremities. EXTREMITIES: No edema or erythema seen. Right foot, bruise seen in the dorsal aspect. Principal Diagnosis Chest pain, ACS ruled out Soft tissue injury to the dorsal aspect of foot Discharge Exam Constitutional: WD/WN, vitals as above, NAD, sitting up in bed, pleasant, conversing easily Respiratory: normal respiratory effort, lungs clear to auscultation, no wheeze, rales, rhonchi. Normal insp/exp effort, no accessory muscle use Cardiovascular: RRR, no murmur, no edema Vessels: no JVD or carotid bruit Chest: normal inspection of chest Abdomen: normal bowel sounds, soft, nontender, no hepatosplenomegaly Musculoskeletal: Bluish bruise present on the dorsal aspect of right foot. Skin: no rashes, warm and dry normal turgor Neurologic: PERRL, EOMI, accommodation nl, no face palsy, no dysarthria CN's II- XI intact bilaterally and moves all extremities Psychiatric: A+Ox3, euthymic affect Discharge Data Allergies Allergy/AdvReac Type Severity Reaction Status Date / Time atorvastatin AdvReac Intermediate myalgias, Verified 05/07/23 01:36 dysarthria prednisone AdvReac Intermediate metabolic-h Verified 05/07/23 01:36 yperglycemi a Consultations 05/07/23 04:27 ED Decision to Admit Stat 05/07/23 08:30 Consult Cardiology Routine Hospital Course (1) Chest pain: (2) Right foot pain: Plan Patient is a 67-year-old female who presents with dropping her photo frame on her right foot and developed chest pain in the night time, which resolved with nitro. High since her troponin on admission was 22 which trended to 51 EKG showed normal sinus rhythm; no significant ST or T wave changes present. Cardiac consultation was done. Patient underwent echocardiogram which showed EF of 55 to 60%, no regional wall motion abnormality seen X-ray of the foot did not show any fracture. Patient was discharged home with her son with prescription of Voltaren gel and Tylenol for pain control Total Time Total Time Spent Total Time Spent (In Minutes): 45 Total Time Includes: Examination of the Patient, Discharge Planning, Medication Reconciliation, Communication With Other Providers and Other Discharge Plan Discharge Items Patient Disposition: Home - Self-Care Reason For Visit: CHEST PAIN, FOOT INJURY Discharge Diagnosis: Chest pain, ACS rule out Soft tissue injury to the foot. Activity: Resume your previous activity Non-emergency contact: Primary Care Provider Call non-emergency contact if: you have any medication questions and your symptoms worsen Follow-up/Referrals: Amairani Owen MD [Primary Care Provider] - (Date & Time 05/10/2023 3:00 PM Provider Amairani Ramirez MD Department Family Medicine [facility] ) Diet: Regular Addtl Attending Provider Instructions: You are prescribed Voltaren gel to be applied on your foot for pain. You are also prescribed Tylenol for pain control. An appointment will be set up with your primary care doctor. Pending Studies at Discharge: No Stand-Alone Forms: My [facility] [employer], Smoking Cessation Medications and DC Order Prescriptions: New diclofenac sodium [Voltaren Arthritis Pain] 1 % gel 2 g topical QID Qty: 100 0RF Rx Instructions: Apply to feet acetaminophen [Tylenol] 325 mg capsule 650 mg PO Q8H PRN (Reason: fever or pain) Qty: 60 0RF Continued insulin aspart U-100 [Novolog FlexPen U-100 Insulin] 100 unit/mL (3 mL) insulin pen 6 unit SUBCUT TIDM insulin glargine [Lantus Solostar U-100 Insulin] 100 unit/mL (3 mL) Insulin Pen 16 unit SUBCUT HS Lipotriad Vision Support 12,500 unit- 12.5 mg Capsule 1 cap PO QAM nitroglycerin [Nitrostat] 0.4 mg Tablet, Sublingual 0.4 mg sublingual UD PRN (Reason: chest pain) Qty: 30 1RF aspirin 81 mg Tablet,Delayed Release (Dr/Ec) 81 mg PO QAM Qty: 90 1RF amlodipine 2.5 mg tablet 2.5 mg PO DAILY hydrocortisone-acetic acid 1-2 % Drops 3 drp OTIC (EAR) BID PRN (Reason: ITCHY EARS) Repatha SureClick 140 mg/mL pen injector 140 mg SUBCUT .[id number] Excedrin Migraine 250-250-65 mg Tablet 1 tab PO Q6H PRN (Reason: Headache) metoprolol tartrate 25 mg tablet 37.5 mg PO BID coenzyme Q10 [CoQ-10] 100 mg Capsule 100 mg PO DAILY Nexletol 180 mg Tablet 180 mg PO DAILY Discharge Orders: Discharge Order (Routine); Ordered 05/07/23 Ordered By: Antwan Rowley/Other Patient Handouts: Fast-Acting Nitroglycerin, ED Elastic Bandage Wrap Admission Data Admit Date/Time: 05/07/23 06:03 Attending Provider: Antwan Robledo Admit Provider: José Luis Erickson Primary Care Provider: Amairani Owen Other Providers: José Luis Erickson ; Sudhir Thomas Other Interventions: Discharge Summary Assessment (RN) Last Done: 05/07/23 14:29
[2023-05-07] MEDS ORDERED: LANTUS PER UNIT CHARGE SQ SCH (21:00)
== END 2023-05-07 15:06 | disposition home or self-care (01) ==
LOC: ED 00:43 → 2S 00:43 → SUATTDRO 06:03 → 2S 08:00

== ENCOUNTER 2023-07-15 01:24 | Observation (INO) ==
--- NOTE | 2023-07-15 01:35 | Emergency Department Note ---
History of Present Illness General Chief complaint: Anxiety Stated complaint: CHEST DISCOMFORT, ANXIETY Time Seen by Provider: 07/15/23 01:28 History of Present Illness This 67-year-old female presents to the ER complaining of chest pain tonight. Patient took her own nitroglycerin and now feels better. She has a history of coronary artery disease. Patient was here 2 months ago for the same complaint and had a unremarkable work-up. Echo was similar to prior. Patient denies abdominal pain, fevers, vomiting or any other medical complaints. She is feeling better now. Home Medications Medication Instructions Recorded Confirmed Type insulin aspart U-100 100 unit/mL 6 unit subcut TIDM 05/14/20 07/15/23 History (3 mL) subcutaneous pen (Novolog FlexPen U-100 Insulin aspart) insulin glargine 100 unit/mL (3 16 unit subcut HS 05/14/20 07/15/23 History mL) subcutaneous pen (Lantus Solostar U-100 Insulin) vit A 12,500 unit-zinc 12.5 1 cap PO QAM 05/14/20 07/15/23 History ig-ypwqpy-cmvmq-bilberry-herb #261 capsule (Lipotriad Vision Support) aspirin 81 mg tablet,delayed 81 mg PO QAM #90 tabs 05/17/20 07/15/23 Rx release nitroglycerin 0.4 mg sublingual 0.4 mg sublingual UD PRN chest 05/17/20 07/15/23 Rx tablet (Nitrostat) pain #30 tabs amlodipine 2.5 mg tablet 2.5 mg PO DAILY 08/10/21 07/15/23 History evolocumab 140 mg/mL subcutaneous 140 mg subcut .[id number] 08/10/21 07/15/23 H istory pen injector (Repathиван Nicholson) hydrocortisone-acetic acid 1 %-2 % 3 drp otic (ear) BID PRN ITCHY EARS 08/10/21 07/15/23 History ear drops coenzyme Q10 100 mg capsule 100 mg PO DAILY 01/14/22 07/15/23 History (CoQ-10) acetaminophen 325 mg capsule 650 mg PO Q8H PRN fever or pain 05/07/23 07/15/23 Rx (Tylenol) #60 caps rybfqnb-bslfrubypggwx-yxobreau 250 1 tab PO Q6H PRN Headache 05/07/23 07/15/23 History mg-250 mg-65 mg tablet (Excedrin Migraine) metoprolol tartrate 25 mg tablet 37.5 mg PO BID 05/07/23 07/15/23 History bempedoic acid 180 mg tablet 180 mg PO DAILY 07/15/23 07/15/23 History Allergies Allergy/AdvReac Type Severity Reaction Status Date / Time atorvastatin AdvReac Intermediate myalgias, Verified 07/15/23 02:06 dysarthria prednisone AdvReac Intermediate metabolic-h Verified 07/15/23 02:06 yperglycemi a Past Med/Surg History Medical History Atherosclerosis of coronary artery CAD (coronary artery disease) History of TIA (transient ischemic attack) HLD (hyperlipidemia) Hypertension Macular degeneration MELAS (mitochondrial encephalopathy, lactic acidosis and stroke-like episodes) Mnire's disease Schatzki's ring Statin intolerance Type 1 diabetes mellitus Surgical History History of cholecystectomy History of cochlear implant Left in 2014 History of colonoscopy with polypectomy History of heart artery stent History of hysterectomy History of left heart catheterization 07/2019 which revealed 30% proximal LAD otherwise clean coronaries Family History Mother Coronary heart disease, Onset Age: 70 Father Coronary heart disease, Onset Age: 50 Social History Smoking Status: Never smoker Second Hand Exposure: No; Do You Dip or Chew Tobacco: No; Hx Alcohol Use: No Hx Substance Use: No Preferred Language: Sami Communication Ability: Impaired Communication Ability Comment: Left cochlear implant Hearing Ability: 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 Required: No Beliefs That Will Affect Care: None marital status: Current Living Situation: Family Current Living Situation Comment: SON LIVES WITH PATIENT current occupational status: retired and disabled How many Children do You have: 2 Feels Safe at Home: Yes Assistive Devices: Glasses and Hearing Aid - Left Review of Systems A total of 10 systems reviewed and were otherwise negative Physical Exam Vital Signs Vital Signs - 24 hr 07/15/23 01:33 07/15/23 01:36 07/15/23 01:31 Temperature 36.6 C Temperature Source Oral Pulse Rate 101 H Pulse Rate [Apical] 98 H Respiratory Rate 20 20 Respiratory Effort / Characteristics Non-Labored Spontaneous Respiratory Depth Normal Blood Pressure 162/84 H Blood Pressure [Left Arm] 168/84 H Blood Pressure Mean 110 Blood Pressure Mean [Left Arm] 112 Pulse Oximetry 98 99 100 Oxygen Delivery Method Room Air Room Air Room Air Sepsis Recent Fever Within 48 Hours No Sepsis New/Unexplained Change in Mental Status No Sepsis Action Taken by Nursing No Action Required VITALS: Vitals are noted on the nurse's note and reviewed by myself. Vital signs stable. GENERAL: Pleasant anxious appearing female, in no acute distress, nondiaphoretic, well-developed well-nourished. SKIN: The skin was without rashes, erythema, edema, or bruising. There is no tenting of the skin. Capillary reflex less than 2 seconds. HEAD: Normocephalic atraumatic. EARS: External auditory canals clear, EYES: Pupils equal round and reactive to light and accommodation. Conjunctivae without injection, sclerae without icterus. Extraocular movements intact. NOSE: Patent, turbinates without inflammation or discharge. MOUTH: Mucous membranes moist. Pharynx without erythema or exudate. Uvula midline. Airway patent. Tongue does not deviate. NECK: Supple without nuchal rigidity. No lymphadenopathy. No thyromegaly. Cervical spine is nontender. No JVD. HEART: Regular rate and rhythm LUNGS: Clear to auscultation bilaterally without wheezes, rales or rhonchi. No retractions or accessory muscle use. ABDOMEN: Positive bowel sounds x 4. Normal tympanic percussion. Soft, nontender, without masses or organomegaly. Bello sign negative. No guarding or rebound tenderness. No CVA tenderness MUSCULOSKELETAL: No muscle atrophy, erythema, or edema noted. NEURO: Patient was alert and oriented to person place and time. Normal sensation to light and sharp touch. No focal neurological deficits. Medical Decision Making Medical Records Attestation: I reviewed the patient's medical records. Home Medications Current Medication List: was personally reviewed by me Laboratory Data Attestation: I reviewed the patient's lab results. 07/15/23 01:31 07/15/23 01:31 Lab Results 08/21/23 08/21/23 08/21/23 Range/Units 01:31 01:31 03:32 WBC 7.79 (4.8-10.8) K/ul RBC 3.85 L (4.20-5.40) M/uL Hgb 11.3 L (12.0-16.0) g/dl Hct 33.4 L (37.0-47.0) % MCV 86.8 (80.0-100.0) fL MCH 29.4 (25.0-34.0) pg MCHC 33.8 (32.0-36.0) g/dL RDW Std Deviation 39.8 (36.4-46.3) fL RDW Coeff of Marj 12.6 (11.5-14.5) % Plt Count 249 (130-400) K/uL MPV 11.2 (9.4-12.4) fL Immature Gran % (Auto) 0.3 % Neut % (Auto) 51.8 % Lymph % (Auto) 35.9 % [place] % (Auto) 8.2 % Eos % (Auto) 2.6 % Baso % (Auto) 1.2 % Neut # (Auto) 4.04 (1.40-6.50) K/uL Lymph # (Auto) 2.80 (1.2-3.4) K/uL [place] # (Auto) 0.64 H (0.11-0.59) K/uL Eos # (Auto) 0.20 (0-0.50) K/uL Baso # (Auto) 0.09 (0-0.2) K/uL Immature Gran # (Auto) 0.02 (0.01-0.20) K/uL Sodium 135 L (136-145) mmol/L Potassium 3.8 (3.5-5.1) mmol/L Chloride 102 (98-107) mmol/L Carbon Dioxide 23 (21-32) mmol/L Anion Gap 10 (3-11) BUN 17 (6-23) mg/dl Creatinine 0.82 (0.6-1.2) mg/dl Est Cr Clr Drug Dosing 53.4 ml/min Est GFR ( Amer) 86.4 ml/min Est GFR (Non-Af Amer) 74.6 ml/min BUN/Creatinine Ratio 20.7 H (10-20) Glucose 202 H (70-99(Fasting)) mg/dl Calcium 8.7 (8.6-10.3) mg/dl Total Bilirubin 0.4 (0.2-1.0) mg/dl AST 17 (13-39) U/L ALT 12 (7-52) U/L Alkaline Phosphatase 57 (34-104) U/L Troponin I High Sens 26.3 H 31.0 H (0-14) pg/ml Total Protein 7.2 (6.0-8.3) gm/dl Albumin 4.4 (3.4-5.0) gm/dl Globulin 2.8 (2.5-4.0) gm/dl Albumin/Globulin Ratio 1.6 (0.9-2) Lipase 25 (11-82) U/L Imaging Data Attestation: I personally reviewed and interpreted this imaging study as follows: MDM Narrative Prior records/ancillary studies reviewed. Triage Nursing notes reviewed. Additional history obtained from EMS. The patient's history was concerning for chest pain. Differential diagnosis: Etiologies such as cardiac ischemia, aortic dissection, pulmonary embolism, pneumonia, pneumothorax, musculoskeletal, infections, pericarditis, myocarditis, esophageal rupture, gastrointestinal, as well as others were entertained. Physical examination: As above. ER treatment provided: An order was placed for continuous cardiac monitoring. The monitor shows a rate of 60-100 with a sinus rhythm per my interpretation. Patient was observed On reassessment the patient felt better. Diagnostic interpretation by me: The electrocardiogram was ordered for chest pain EKG: Normal sinus, left axis, T wave inversions in 1 aVL, rate of 93. Impression normal sinus rhythm left axis T wave inversions in 1 and aVL similar to prior independently interpreted by myself I think arrhythmia is unlikely. EKG shows normal sinus rhythm with no interval abnormalities such as QT prolongation or WPW. There are no findings to suggest Brugada syndrome. Cardiac monitoring in the emergency department reveals no tachycardic or bradycardic dysrhythmia. Hypertrophic cardiomyopathy was considered but there are no clear historical elements pointing toward this. EKG is not suggestive. The QRS voltage is not extremely large and there are no suggestive Q waves. The labs Independently Interpreted by myself revealed slightly elevated troponin and repeat was slightly higher No worrisome leukocytosis Imaging studies: Chest x-ray with no acute consolidation, pneumothorax or free air per my independent interpretation HEART SCORE: Hx: high/mod/low suspicion: 0 ECG: ST depression/nonspecific changes/normal: 0 Age: Greater than 65/45-64/less than 45: 2 Risk factors: (Hypertension, hyperlipidemia, diabetes, coronary disease, tobacco use, cocaine use): 2 Troponin: Greater than 2 times normal limits/1-2 times normal limits/normal: 1 Total: 5 Consultation: A consultation was placed with the hospitalist. The case was discussed and diagnostics were reviewed. The patient was evaluated in the ER for further treatment. Exam and history seem consistent chest pain with slightly elevated troponin and unchanged EKG. Labs and diagnostics were independently interpreted by myself. Medicine is consulted and will evaluate the patient for possible admission. Patient is agreeable. By the evaluation outlined above emergent etiologies such as aortic dissection, pulmonary embolism, pneumonia, pneumothorax, infections, pericarditis, myocarditis, gastrointestinal, as well as others were deemed relatively unlikely. The pt informed about the findings as listed above. All questions were answered and pleased with the treatment. The chart was completed utilizing [employer] Speech voice recognition software. Grammatical errors, random word insertions, pronoun errors, and incomplete sentences are an occassional consequence of this system due to software limitations, ambient noise, and hardware issues. Any formal questions or concerns about the content, text, or information contained within the body of this dictation should be directly addressed to the physician hospital administrative assistant for clarification. Impression & Plan Acute chest pain, Elevated troponin Discharge Plan Visit Data Chief Complaint: Anxiety Stated Complaint: CHEST DISCOMFORT, ANXIETY ED Provider: Karen Henao ED Midlevel Provider: Selina Good Discharge Problem: Acute chest pain, Elevated troponin Patient Disposition: Being Evaluated by Hospitalist Condition: Good Discharge Instructions Activity Restrictions/Additional Instructions: Forms Stand Alone Forms: Suicide Prevention Resources, Virtual Emergency Department, Important Visit Information Prescriptions Prescriptions: No Action insulin aspart U-100 [Novolog FlexPen U-100 Insulin] 100 unit/mL (3 mL) insulin pen 6 unit SUBCUT TIDM insulin glargine [Lantus Solostar U-100 Insulin] 100 unit/mL (3 mL) Insulin Pen 16 unit SUBCUT HS Lipotriad Vision Support 12,500 unit- 12.5 mg Capsule 1 cap PO QAM nitroglycerin [Nitrostat] 0.4 mg Tablet, Sublingual 0.4 mg sublingual UD PRN (Reason: chest pain) Qty: 30 1RF aspirin 81 mg Tablet,Delayed Release (Dr/Ec) 81 mg PO QAM Qty: 90 1RF amlodipine 2.5 mg tablet 2.5 mg PO DAILY hydrocortisone-acetic acid 1-2 % Drops 3 drp OTIC (EAR) BID PRN (Reason: ITCHY EARS) Repatha SureClick 140 mg/mL pen injector 140 mg SUBCUT .[id number] Excedrin Migraine 250-250-65 mg Tablet 1 tab PO Q6H PRN (Reason: Headache) metoprolol tartrate 25 mg tablet 37.5 mg PO BID acetaminophen [Tylenol] 325 mg capsule 650 mg PO Q8H PRN (Reason: fever or pain) Qty: 60 0RF coenzyme Q10 [CoQ-10] 100 mg Capsule 100 mg PO DAILY bempedoic acid 180 mg Tablet 180 mg PO DAILY Referrals Referrals: Amairani Owen MD [Primary Care Provider] -
[2023-07-15 01:43] LABS: Basophils # (auto) 0.09 K/uL (0-0.2); Basophils % (auto) 1.2 %; Eosinophils % (auto) 2.6 %; Hematocrit (blood only) 33.4 % (37.0-47.0); Hemoglobin 11.3 g/dl (12.0-16.0); Immature Granulocytes # (auto) 0.02 K/uL (0.01-0.20); Immature Granulocytes % (auto) 0.3 %; Lymphocytes % (auto) 35.9 %; Mean Corpuscular Hemoglobin 29.4 pg (25.0-34.0); Mean Corpuscular Hgb Conc 33.8 g/dL (32.0-36.0); Mean Corpuscular Volume 86.8 fL (80.0-100.0); Mean Platelet Volume 11.2 fL (9.4-12.4); Monocytes # (auto) 0.64 K/uL (0.11-0.59); Monocytes % (auto) 8.2 %; Neutrophils # (auto) 4.04 K/uL (1.40-6.50); Neutrophils % (auto) 51.8 %; Platelet Count 249 K/uL (130-400); RDW Coefficient of Variation 12.6 % (11.5-14.5); RDW Standard Deviation 39.8 fL (36.4-46.3); Red Blood Count 3.85 M/uL (4.20-5.40); White Blood Count 7.79 K/ul (4.8-10.8)
[2023-07-15 02:01] LABS: Albumin Globulin Ratio 1.6 (0.9-2); Albumin Level 4.4 gm/dl (3.4-5.0); BUN Creatinine Ratio 20.7 (10-20); Bilirubin,Total 0.4 mg/dl (0.2-1.0); Calcium 8.7 mg/dl (8.6-10.3); Creatinine Clr Calc Pharmacy 53.4 ml/min; Est GFR (African American) 86.4 ml/min; Est GFR (Non-African American) 74.6 ml/min; Globulin 2.8 gm/dl (2.5-4.0); Potassium 3.8 mmol/L (3.5-5.1); Total Protein 7.2 gm/dl (6.0-8.3)
[2023-07-15 02:09] LABS: Troponin I High Sensitivity 26.3 pg/ml (0-14)
--- NOTE | 2023-07-15 05:22 | History & Physical Report ---
Date of Service July 15, 2023 Assessment & Plan (1) Acute chest pain: Plan: 67-year-old female presents with chest pain .1. Chest pain:Took two nitros at home.. History of cardiac stent placement. Initial troponin 31, . Seems chronically elevated. Rule out ACS. Will observe in tele floor. Will follow serial enzymes, echocardiogram. Will keep her n.p.o. Consult cardiology for further recommendation. 2. History of coronary artery disease, status post stent: Continue her aspirin, metoprolol tartrate. The patient takes Repatha shots. 3. History of cerebrovascular accident: On aspirin and cholesterol medication. 4. Hypertension: On amlodipine, metoprolol tartrate. Will monitor the blood pressure. 5. History of diabetes: Continue with Lantus and ISS.. The patient is currently n.p.o.CAn cut back on Lantus if remain npo. Follow the blood sugars. HbA1c levels. 6. History of MELAS syndrome. 7. Deep venous thrombosis prophylaxis: Sequential compression devices for now. 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 Patient says around 11 PM she had chest pain radiating to left arm took 2 nitros and called her son and was brought in here. Currently chest pain-free. Patient is hard of hearing has cochlear implants. Currently denies any pain no shortness of breath. No nausea. No abdominal pain. No cough. No runny nose. Afebrile. She had some dizziness during the episode. Normal bowel and bladder movements. Resting comfortably and medically stable. She was admitted in May 07 with similar episode and work-up was negative at that time Past medical history as mentioned above Past surgical history Left heart catheterization and stent placement, EGDs, laparoscopic cholecystectomy, muscle biopsy right thigh, dilatation of Schatzki ring with EGD. FAMILY HISTORY: Significant for brother has diabetes; father has diabetes, father had CAD in his 50s; mother had heart disease in her 70s; daughter has MELAS syndrome; son has retinal detachment. SOCIAL HISTORY: Currently lives with her son. Former smoker, quit in 1991. No alcohol use. No drug use. Allergies Allergy/AdvReac Type Severity Reaction Status Date / Time atorvastatin AdvReac Intermediate myalgias, Verified 07/15/23 02:06 dysarthria prednisone AdvReac Intermediate metabolic-h Verified 07/15/23 02:06 yperglycemi a Home Medications Medication Instructions Recorded Confirmed Type insulin aspart U-100 100 unit/mL 6 unit subcut TIDM 05/14/20 07/15/23 History (3 mL) subcutaneous pen (Novolog FlexPen U-100 Insulin aspart) insulin glargine 100 unit/mL (3 16 unit subcut HS 05/14/20 07/15/23 History mL) subcutaneous pen (Lantus Solostar U-100 Insulin) vit A 12,500 unit-zinc 12.5 1 cap PO QAM 05/14/20 07/15/23 History yz-vogxxw-pivjf-bilberry-herb #261 capsule (Lipotriad Vision Support) aspirin 81 mg tablet,delayed 81 mg PO QAM #90 tabs 05/17/20 07/15/23 Rx release nitroglycerin 0.4 mg sublingual 0.4 mg sublingual UD PRN chest 05/17/20 07/15/23 Rx tablet (Nitrostat) pain #30 tabs amlodipine 2.5 mg tablet 2.5 mg PO DAILY 08/10/21 07/15/23 History evolocumab 140 mg/mL subcutaneous 140 mg subcut .[id number] 08/10/21 07/15/23 History pen injector (Repatha SureClick) hydrocortisone-acetic acid 1 %-2 % 3 drp otic (ear) BID PRN ITCHY EARS 08/10/21 07/15/23 History ear drops coenzyme Q10 100 mg capsule 100 mg PO DAILY 01/14/22 07/15/23 History (CoQ-10) acetaminophen 325 mg capsule 650 mg PO Q8H PRN fever or pain 05/07/23 07/15/23 Rx (Tylenol) #60 caps mofzahj-nbpdyzjlqsujl-iapmyjku 250 1 tab PO Q6H PRN Headache 05/07/23 07/15/23 History mg-250 mg-65 mg tablet (Excedrin Migraine) metoprolol tartrate 25 mg tablet 37.5 mg PO BID 05/07/23 07/15/23 History bempedoic acid 180 mg tablet 180 mg PO DAILY 07/15/23 07/15/23 History Past Med/Surg History Medical History Atherosclerosis of coronary artery CAD (coronary artery disease) History of TIA (transient ischemic attack) HLD (hyperlipidemia) Hypertension Macular degeneration MELAS (mitochondrial encephalopathy, lactic acidosis and stroke-like episodes) Mnire's disease Schatzki's ring Statin intolerance Type 1 diabetes mellitus Surgical History History of cholecystectomy History of cochlear implant Left in 2014 History of colonoscopy with polypectomy History of heart artery stent History of hysterectomy History of left heart catheterization 07/2019 which revealed 30% proximal LAD otherwise clean coronaries Family History Mother Coronary heart disease, Onset Age: 70 Father Coronary heart disease, Onset Age: 50 Social History Smoking Status: Never smoker Second Hand Exposure: No; Do You Dip or Chew Tobacco: No; Hx Alcohol Use: No Hx Substance Use: No Preferred Language: Wallisian Communication Ability: Impaired Communication Ability Comment: Left cochlear implant Hearing Ability: Cochlear Implant Hide Dyer Required: No Beliefs That Will Affect Care: None marital status: Current Living Situation: Family Current Living Situation Comment: SON LIVES WITH PATIENT current occupational status: retired and disabled How many Children do You have: 2 Feels Safe at Home: Yes Assistive Devices: Glasses and Hearing Aid - Left Review of Systems Review of Systems: All systems reviewed & are unremarkable except as noted in HPI & below Physical Exam Physical Exam: General- Not in distress. Hard of hearing. Head- atraumatic Eyes- PERRL. ENT- oropharynx clear Neck- supple, no JVD. Lungs- clear to auscultation no added sounds. Heart- regular rhythm; no murmur, no gallop,. Abdomen- normal bowel sounds, soft, nontender, no distension. Extremities- no pretibial edema, no erythema seen. Neuro- alert, oriented x 3; PERRL, EOMI; no facial palsy; no dysarthria;moves extremities Skin- warm & dry Results & Data Results & Data Vital Signs (Past 12 Hours) Vital Signs Temp Pulse Pulse Resp BP BP Pulse Ox 07/15/23 04:30 76 16 153/84 H 98 07/15/23 04:00 74 16 137/81 98 07/15/23 01:31 98 H 20 168/84 H 100 07/15/23 01:36 99 07/15/23 01:33 36.6 C 101 H 20 162/84 H 98 O2 Del Method 07/15/23 04:30 Room Air 07/15/23 04:00 Room Air 07/15/23 01:31 Room Air 07/15/23 01:36 Room Air 07/15/23 01:33 Room Air Diagnostic Findings Laboratory Results WBC 7.79 K/ul (4.8-10.8) 07/15/23 01:31 RBC 3.85 M/uL (4.20-5.40) L 07/15/23 01:31 Hgb 11.3 g/dl (12.0-16.0) L 07/15/23 01:31 Hct 33.4 % (37.0-47.0) L 07/15/23 01:31 MCV 86.8 fL (80.0-100.0) 07/15/23 01:31 MCH 29.4 pg (25.0-34.0) 07/15/23 01:31 MCHC 33.8 g/dL (32.0-36.0) 07/15/23 01:31 RDW Std Deviation 39.8 fL (36.4-46.3) 07/15/23 01:31 RDW Coeff of Marj 12.6 % (11.5-14.5) 07/15/23 01:31 Plt Count 249 K/uL (130-400) 07/15/23 01:31 MPV 11.2 fL (9.4-12.4) 07/15/23 01:31 Immature Gran % (Auto) 0.3 % 07/15/23 01:31 Neut % (Auto) 51.8 % 07/15/23 01:31 Lymph % (Auto) 35.9 % 07/15/23 01:31 Will % (Auto) 8.2 % 07/15/23 01:31 Eos % (Auto) 2.6 % 07/15/23 01:31 Baso % (Auto) 1.2 % 07/15/23 01:31 Neut # (Auto) 4.04 K/uL (1.40-6.50) 07/15/23 01:31 Lymph # (Auto) 2.80 K/uL (1.2-3.4) 07/15/23 01:31 Will # (Auto) 0.64 K/uL (0.11-0.59) H 07/15/23 01:31 Eos # (Auto) 0.20 K/uL (0-0.50) 07/15/23 01:31 Baso # (Auto) 0.09 K/uL (0-0.2) 07/15/23 01:31 Immature Gran # (Auto) 0.02 K/uL (0.01-0.20) 07/15/23 01:31 Sodium 135 mmol/L (136-145) L 07/15/23 01:31 Potassium 3.8 mmol/L (3.5-5.1) 07/15/23 01:31 Chloride 102 mmol/L (98-107) 07/15/23 01:31 Carbon Dioxide 23 mmol/L (21-32) 07/15/23 01:31 Anion Gap 10 (3-11) 07/15/23 01:31 BUN 17 mg/dl (6-23) 07/15/23 01:31 Creatinine 0.82 mg/dl (0.6-1.2) 07/15/23 01:31 Est Cr Clr Drug Dosing 53.4 ml/min 07/15/23 01:31 Est GFR ( Amer) 86.4 ml/min 07/15/23 01:31 Est GFR (Non-Af Amer) 74.6 ml/min 07/15/23 01:31 BUN/Creatinine Ratio 20.7 (10-20) H 07/15/23 01:31 Glucose 202 mg/dl (70-99(Fasting)) H 07/15/23 01:31 Calcium 8.7 mg/dl (8.6-10.3) 07/15/23 01:31 Total Bilirubin 0.4 mg/dl (0.2-1.0) 07/15/23 01:31 AST 17 U/L (13-39) 07/15/23 01:31 ALT 12 U/L (7-52) 07/15/23 01:31 Alkaline Phosphatase 57 U/L (34-104) 07/15/23 01:31 Troponin I High Sens 31.0 pg/ml (0-14) H 07/15/23 03:32 Total Protein 7.2 gm/dl (6.0-8.3) 07/15/23 01:31 Albumin 4.4 gm/dl (3.4-5.0) 07/15/23 01:31 Globulin 2.8 gm/dl (2.5-4.0) 07/15/23 01:31 Albumin/Globulin Ratio 1.6 (0.9-2) 07/15/23 01:31 Lipase 25 U/L (11-82) 07/15/23 01:31 ECG Additional Comments: ECG normal sinus rhythm rate of 93. Left axis deviation no acute ST changes seen Code Status & VTE Plan VTE Prophylaxis Plan VTE Prophylaxis will be ordered: Yes
--- NOTE | 2023-07-15 07:02 | XRay Report ---
XR chest 1V portable CLINICAL HISTORY: Chest pain, nonspecific TECHNIQUE: Single frontal radiograph of the chest was obtained. Comparison: Comparison is made to chest radiograph 05/07/2023 FINDINGS: No lines and tubes are seen. Calcified aortic knob is seen. The lungs are clear. No evidence of pleur al effusion or pneumothorax. IMPRESSION: No acute chest disease. ACT 112: Negative or not required by law. Electronically signed by: Madhu Thomas M.D. 07/15/2023 7:01 AM
[2023-07-15] MEDS ORDERED: GLUCOSE 10 TAB/TUBE PO PRN (09:56)
[2023-07-15] MEDS ORDERED: NITROGLYCERIN SL 0.4 MG/TAB TAB SL PRN ×2 (09:56)
[2023-07-15] MEDS ORDERED: GLUCAGON FOR INJ 1 MG VIAL SQ PRN (09:56)
[2023-07-15] MEDS ORDERED: POLYETHYLENE (MIRALAX) 17 GM PACK PO PRN (09:56)
[2023-07-15] MEDS ORDERED: GLUCOSE 40% GEL 15 GM TUBE PO PRN (09:56)
[2023-07-15] MEDS ORDERED: CARBOHYDRATES FOR HYPOGLYCEMIA PO PRN (09:56)
[2023-07-15] MEDS ORDERED: METOPROLOL TARTRATE 25 MG TAB PO SCH (09:56)
[2023-07-15] MEDS ORDERED: ACETAMINOPHEN 325 MG TAB PO PRN (09:56)
[2023-07-15] MEDS ORDERED: NON-FORMULARY MEDICATION (Coenzyme Q10 [Coq-10] 100 mg Capsule) PO SCH (09:56)
[2023-07-15] MEDS ORDERED: DEXTROSE 50% 50 ML SYRINGE IV PRN (09:56)
[2023-07-15 10:27] LABS: Basophils # (auto) 0.08 K/uL (0-0.2); Basophils % (auto) 1.1 %; Eosinophils # (auto) 0.11 K/uL (0-0.50); Eosinophils % (auto) 1.5 %; Hematocrit (blood only) 35.1 % (37.0-47.0); Hemoglobin 12.1 g/dl (12.0-16.0); Immature Granulocytes # (auto) 0.02 K/uL (0.01-0.20); Immature Granulocytes % (auto) 0.3 %; Lymphocytes % (auto) 30.3 %; Mean Corpuscular Hemoglobin 28.9 pg (25.0-34.0); Mean Corpuscular Hgb Conc 34.5 g/dL (32.0-36.0); Mean Platelet Volume 11.3 fL (9.4-12.4); Monocytes % (auto) 6.9 %; Neutrophils # (auto) 4.36 K/uL (1.40-6.50); Neutrophils % (auto) 59.9 %; Platelet Count 254 K/uL (130-400); RDW Coefficient of Variation 12.5 % (11.5-14.5); RDW Standard Deviation 37.9 fL (36.4-46.3); Red Blood Count 4.18 M/uL (4.20-5.40); White Blood Count 7.27 K/ul (4.8-10.8)
[2023-07-15] MEDS: INSULIN ASPART PER UNIT CHARGE SC SCH ×4 (10:40→21:42)
[2023-07-15 10:41] LABS: BUN Creatinine Ratio 23.7 (10-20); Calcium 8.9 mg/dl (8.6-10.3); Creatinine Clr Calc Pharmacy 74.2 ml/min; Est GFR (African American) 110.7 ml/min; Est GFR (Non-African American) 95.5 ml/min; Magnesium 1.7 mg/dl (1.7-2.4); Potassium 4.1 mmol/L (3.5-5.1)
[2023-07-15 10:45] LABS: Estimated Average Glucose 177 mg/dl; Hemoglobin A1C 7.8 % (4.5-5.6)
[2023-07-15 10:47] LABS: Troponin I High Sensitivity 30.7 pg/ml (0-14)
[2023-07-15] MEDS: ASPIRIN 81 MG ECTAB PO SCH (11:47)
[2023-07-15] MEDS: amLODIPine BESYLATE 5 MG TAB PO SCH (11:47)
[2023-07-15] MEDS: CEROVITE ADV FORMULA TAB PO SCH (11:48)
--- NOTE | 2023-07-15 12:31 | Cardiology Consultation ---
Date of Consultation July 15, 2023 Assessment & Plan (1) Elevated troponin: (2) Chest pain: (3) ASCVD (arteriosclerotic cardiovascular disease): (4) Tachycardia: Plan Chest pain. - Symptoms reminiscent of the discomfort associated with the prior RI. - High sensitivity Troponin I 26.3 then 31.0 then 30.7 pg/mL. - EKG without change change. - Chest x-ray clear. - Resting echocardiography pending. - Elevated heart rates and BP raise concern for compliance with medications. Recommendations: Observation Increase metoprolol tartrate dosing to 50 mg twice a day for additional heart rate and blood pressure control. Continue ASA Patient unable to take statins Continue Evolocumab and Bempedoic Acid Considering pharmacological stress testing versus other, pending TTE, if patient permits (adamant about leaving this afternoon). Supervising Physician Co-Signing Physician Notes Patient seen and examined at the bedside. Ports episode of chest discomfort yesterday with symptoms reminiscent of prior angina. She took 3 sublingual nitro in rapid succession at home. Symptoms resolved prior to returning to ER. Reports a similar episode in April of this year. Pain-free since admission. Req uesting discharge if possible. Son present at bedside. Patient denies orthopnea, PND, or lower extremity edema. No palpitations, lightheadedness, dizziness, syncope, or near syncope. PE: VSS. Gen: NAD, AAO x3. Heart: Regular rhythm. Normal S1S2. No murmur. Lung: Clear B/L, No rales, rhonchi, wheeze. Ext: no edema. A/P: Agree with above PA-C history, physical exam, assessment and plan. Titrate metoprolol to 50 mg twice daily for additional heart rate and blood pressure control. Mildly elevated troponins appear chronic and unchanged compared to prior hospitalization. Her bedside echocardiogram demonstrates preserved LV systolic function and normal wall motion. No ECG changes. Recommend Lexiscan nuclear stress testing tomorrow 07/16/2023 for further risk stratification. Patient agreeable. History of Present Illness Reason for Consultation: Chest pain Requesting Physician: Dr. Erickson Attending Physician: Dr. Beckham History of Present Illness Ms. Shanda Chavez is a 67-year-old female who presented to the [facility] ER via ambulance in ladle cleaner hours of July 15, 2023 for evaluation and treatment of chest discomfort. The patient notes that around 11 or 12 she developed significant substernal chest discomfort radiating down the left arm with associated shortness of breath and diaphoresis, symptoms reminiscent of those previously associated with a prior NSTEMI in April 2020. She notes becoming very anxious, promptly and quickly taking 3 sublingual nitroglycerin with improvement. Chest pain resolved prior to EMS arrival. Patient transported to [facility] ER. EKG on presentation without acute ST segment change, revealing normal sinus rhythm at 93 bpm with left axis deviation, voltage criteria for LVH, possible old anterolateral infarct. High-sensitivity troponin I was elevated at 26.3 initially then 31.0 followed by 30.7 pg/mL. Chest x-ray showed no acute chest disease. Resting echocardiography was performed just prior to my arrival and is pending interpretation by the greenhouse superintendent. Patient has been chest pain- free since initial episode. Problem List: Coronary heart disease, non STEMI, prompting cardiac catheterization, drug-eluting stent to the proximal LAD, [facility], 05/16/2020, subtotal occlusion of the RPDA branch of the distal right coronary artery supplied with zccy-an-xumrq collaterals, treated medically, not amenable to revascularization Intolerance of Brilinta prompting transition to clopidogrel Recurrent angina prompting nuclear stress test November,, with abnormal EKG response, symptoms of angina reproduced Repeat cardiac catheterization, [facility], 12/12/2020 with findings of patent LAD stent, distal RPDA stenosis once again observed with ymbp-bl-nahun collaterals unchanged MELAS syndrome, (myopathy, encephalopathy, lactic acidosis and stroke) therefore not statin candidate EGD , 2015, Mild Schatzki ring. Dilated Hospitalized at [facility] in July 2021 with stroke-like symptoms, likely TIA v erses MELAS left (mitochondrial encephalomyelopathy, lactic acidosis, and stroke-like episodes). L arginine supplementation, 1000 mg twice per day, recommended by Neurology. Hospitalized at [facility] in December 2021 with chest pain, shortly after her daughters . Sinus tachycardia noted on admission due to stress and noncompliance with beta-rebecca therapy. Recommendations by Dr. Sampson were f or conservative management, considering outpatient Lexiscan nuclear stress testing for further risk stratification. Hospitalized in January 2022 with an acute left MCA infarction Hospitalized in June 2022 with confusion felt to be secondary to dehydration Status post cochlear implant on the left Hypertension Dyslipidemia Type II diabetes mellitus Allergies Allergy/AdvReac Type Severity Reaction Status Date / Time atorvastatin AdvReac Intermediate myalgias, Verified 07/15/23 02:06 dysarthria prednisone AdvReac Intermediate metabolic-h Verified 07/15/23 02:06 yperglycemi a Home Medications Medication Instructions Recorded Confirmed Type insulin aspart U-100 100 unit/mL 6 unit subcut TIDM 05/14/20 07/15/23 History (3 mL) subcutaneous pen (Novolog FlexPen U-100 Insulin aspart) insulin glargine 100 unit/mL (3 16 unit subcut HS 05/14/20 07/15/23 History mL) subcutaneous pen (Lantus Solostar U-100 Insulin) vit A 12,500 unit-zinc 12.5 1 cap PO QAM 05/14/20 07/15/23 History ll-brmuap-rqunc-bilberry-herb #261 capsule (Lipotriad Vision Support) aspirin 81 mg tablet,delayed 81 mg PO QAM #90 tabs 05/17/20 07/15/23 Rx release nitroglycerin 0.4 mg sublingual 0.4 mg sublingual UD PRN chest 05/17/20 07/15/23 Rx tablet (Nitrostat) pain #30 tabs amlodipine 2.5 mg tablet 2.5 mg PO DAILY 08/10/21 07/15/23 History evolocumab 140 mg/mL subcutaneous 140 mg subcut .[id number] 08/10/21 07/15/23 History pen injector (Repatha SureClick) hydrocortisone-acetic acid 1 %-2 % 3 drp otic (ear) BID PRN ITCHY EARS 08/10/21 07/15/23 History ear drops coenzyme Q10 100 mg capsule 100 mg PO DAILY 01/14/22 07/15/23 History (CoQ-10) acetaminophen 325 mg capsule 650 mg PO Q8H PRN fever or pain 05/07/23 07/15/23 Rx (Tylenol) #60 caps fkpwbpp-vwjitpjabfzgv-xfwyyrcq 250 1 tab PO Q6H PRN Headache 05/07/23 07/15/23 History mg-250 mg-65 mg tablet (Excedrin Migraine) metoprolol tartrate 25 mg tablet 37.5 mg PO BID 05/07/23 07/15/23 History bempedoic acid 180 mg tablet 180 mg PO DAILY 07/15/23 07/15/23 History Patient History Medical History Atherosclerosis of coronary artery CAD (coronary artery disease) History of TIA (transient ischemic attack) HLD (hyperlipidemia) Hypertension Macular degeneration MELAS (mitochondrial encephalopathy, lactic acidosis and stroke-like episodes) Mnire's disease Schatzki's ring Statin intolerance Type 1 diabetes mellitus Surgical History History of cholecystectomy History of cochlear implant Left in 2014 History of colonoscopy with polypectomy History of heart artery stent History of hysterectomy History of left heart catheterization 07/2019 which revealed 30% proximal LAD otherwise clean coronaries Family History Mother Coronary heart disease, Onset Age: 70 Father Coronary heart disease, Onset Age: 50 Social History Smoking Status: Never smoker Second Hand Exposure: No; Do You Dip or Chew Tobacco: No; Hx Alcohol Use: No Hx Substance Use: No Preferred Language: Jordanian Communication Ability: Impaired Communication Ability Comment: Cochlear implants Hearing Ability: Cochlear Implant Transmitter Tester Required: No Beliefs That Will Affect Care: None marital status: Current Living Situation: Family Current Living Situation Comment: SON LIVES WITH PATIENT current occupational status: retired and disabled How many Children do You have: 2 Feels Safe at Home: Yes Safety Concerns: Feels Safe At This Time Assistive Devices: Hearing Aid - Bilateral Review of Systems Review of Systems: Complete Review of Systems is as stated above, negative, or noncontributory. Physical Exam 2 Physical Exam: General: Alert, no distress Skin: No rash Eyes: PER. Conjunctiva pink, sclera clear. HENT: Cochlear implant. Normocephalic. Atraumatic. Neck: No carotid bruits. No JVD. No HJR. Heart: RRR, 100 bpm. No murmur. No rub. No gallop. PMI is nondisplaced. Lungs: Clear to auscultation. Abdomen: +BS. Soft. Nontender. No masses. No organomegaly. Extremities: No clubbing, cyanosis, or edema. Pulses: radial=2/4, posterior tibial=2/4. Limited neurological examination: No focal deficit. Results & Data Vital Signs (Past 12 Hours) Vital Signs Temp Pulse Pulse Resp BP BP Pulse Ox 07/15/23 11:51 96 H 18 152/89 H 97 07/15/23 10:15 90 98 07/15/23 10:12 07/15/23 10:12 93 H 16 129/102 H 98 07/15/23 08:20 91 H 16 159/78 H 97 07/15/23 06:00 83 22 157/120 H 98 07/15/23 06:00 78 07/15/23 02:00 86 07/15/23 04:30 76 16 153/84 H 98 07/15/23 04:00 74 16 137/81 98 07/15/23 01:31 98 H 20 168/84 H 100 07/15/23 01:36 99 07/15/23 01:33 36.6 C 101 H 20 162/84 H 98 Pulse Ox O2 Del Method O2 Del Method 07/15/23 11:51 Room Air 07/15/23 10:15 Room Air 07/15/23 10:12 98 Room Air 07/15/23 10:12 Room Air 07/15/23 08:20 Room Air 07/15/23 06:00 Room Air 07/15/23 06:00 07/15/23 02:00 07/15/23 04:30 Room Air 07/15/23 04:00 Room Air 07/15/23 01:31 Room Air 07/15/23 01:36 Room Air 07/15/23 01:33 Room Air Laboratory Results Cardiac Enzymes 07/15/23 07/15/23 07/15/23 Range/Units 01:31 03:32 10:05 AST 17 (13-39) U/L Troponin I High Sens 26.3 H 31.0 H 30.7 H (0-14) pg/ml CBC 07/15/23 07/15/23 Range/Units 01:31 10:05 WBC 7.79 7.27 (4.8-10.8) K/ul RBC 3.85 L 4.18 L (4.20-5.40) M/uL Hgb 11.3 L 12.1 (12.0-16.0) g/dl Hct 33.4 L 35.1 L (37.0-47.0) % Plt Count 249 254 (130-400) K/uL Neut # (Auto) 4.04 4.36 (1.40-6.50) K/uL Lymph # (Auto) 2.80 2.20 (1.2-3.4) K/uL Brown # (Auto) 0.64 H 0.50 (0.11-0.59) K/uL Eos # (Auto) 0.20 0.11 (0-0.50) K/uL Baso # (Auto) 0.09 0.08 (0-0.2) K/uL Comprehensive Metabolic Panel 07/15/23 07/15/23 Range/Units 01:31 10:05 Sodium 135 L 136 (136-145) mmol/L Potassium 3.8 4.1 (3.5-5.1) mmol/L Chloride 102 104 (98-107) mmol/L Carbon Dioxide 23 25 (21-32) mmol/L BUN 17 14 (6-23) mg/dl Creatinine 0.82 0.59 L (0.6-1.2) mg/dl Glucose 202 H 207 H (70-99(Fasting)) mg/dl Calcium 8.7 8.9 (8.6-10.3) mg/dl AST 17 (13-39) U/L ALT 12 (7-52) U/L Alkaline Phosphatase 57 (34-104) U/L Total Protein 7.2 (6.0-8.3) gm/dl Albumin 4.4 (3.4-5.0) gm/dl Intake and Output 07/14/23 07/15/23 07/15/23 22:59 06:59 14:59 Other: Weight 55.4 kg 55.4 kg Weight Measurement Method Chair Scale Built in [facility] Patient Weight 07/16/23 06:59 Weight 55.4 kg
--- NOTE | 2023-07-15 15:26 | Communication Note ---
Date of Service: July 15, 2023 Patient seen and examined at bedside. 67-year-old female with PMH of T1DM, diabetic polyneuropathy, HLD, chronic rhinitis, CAD, status post cardiac stent, HTN, hemiplegia and aphasia from post- stroke, Schatzki ring, Mnire's disease, cochlear implant in place on the left, MELAS syndrome who lives at home with her son presented to the ED 07/15 with co mplaint of chest pain radiating to left arm, relieved with nitro. She is being managed for the following: Chest pain, R/O ACS: History of cardiac stent placement. Chest pain relieved with nitro's at home. Troponin x3 -- flat trend. Admitting EKG with normal sinus rhythm, no acute ST or T changes. Admitting echo with EF of 55 to 60%, no regional wall motion abnormality. Cardiology on board, metoprolol dose increased to 50 mg twice a day, plan for stress test tomorrow. Continue telemetry monitoring. Other chronic medical conditions: Continue with/resume home meds as and when able. History of coronary artery disease, status post stent: Continue her aspirin, metoprolol tartrate. The patient takes Repatha shots. History of cerebrovascular accident: On aspirin and cholesterol medication. Hypertension: On amlodipine, metoprolol tartrate. Will monitor the blood pressure. History of diabetes: Continue with Lantus and ISS.. The patient is currently n.p.o.CAn cut back on Lantus if remain npo. Follow the blood sugars. HbA1c levels. History of MELAS syndrome. Deep venous thrombosis prophylaxis: Sequential compression devices for now. on examination, patient is hard of hearing, on room air, NAD, heart/lung/abdomen examination fairly WNL. For detailed information on the patient, refer to today's H&P note.
[2023-07-15] MEDS ORDERED: LANTUS PER UNIT CHARGE SQ SCH (21:00)
[2023-07-15] MEDS: METOPROLOL TARTRATE 50 MG TAB PO SCH (21:43)
--- NOTE | 2023-07-16 05:34 | Electrocardiogram Report ---
Test Reason : Blood Pressure : / mmHG Vent. Rate : 093 BPM Atrial Rate : 093 BPM P-R Int : 114 ms QRS Dur : 082 ms QT Int : 364 ms P-R-T Axes : 061 -51 117 degrees QTc Int : 452 ms Normal sinus rhythm Left axis deviation Minimal voltage criteria for LVH, may be normal variant ( Mitch product ) Anterolateral infarct (cited on or before 07-MAY-2023) Abnormal ECG When compared with ECG of 07-MAY-2023 04:06, No significant change Confirmed by Maynor Mtz ([id number]) on 07/16/2023 5:34:00 AM Referred By: REFERRED SELF Confirmed By:Maynor Mtz
[2023-07-16 07:15] LABS: Hematocrit (blood only) 35.8 % (37.0-47.0); Hemoglobin 12.1 g/dl (12.0-16.0); Mean Corpuscular Hgb Conc 33.8 g/dL (32.0-36.0); Mean Corpuscular Volume 85.9 fL (80.0-100.0); Mean Platelet Volume 11.2 fL (9.4-12.4); Platelet Count 272 K/uL (130-400); RDW Coefficient of Variation 12.6 % (11.5-14.5); RDW Standard Deviation 39.2 fL (36.4-46.3); Red Blood Count 4.17 M/uL (4.20-5.40); White Blood Count 6.68 K/ul (4.8-10.8)
[2023-07-16 07:30] LABS: Calcium 9.1 mg/dl (8.6-10.3); Creatinine Clr Calc Pharmacy 72.9 ml/min; Est GFR (African American) 110.1 ml/min; Magnesium 1.8 mg/dl (1.7-2.4); Potassium 4.3 mmol/L (3.5-5.1)
[2023-07-16] MEDS ORDERED: REGADENOSON 0.4 MG/5 ML SYR IV ONE ×2 (08:02→12:02)
[2023-07-16] MEDS: amLODIPine BESYLATE 5 MG TAB PO SCH (08:33)
[2023-07-16] MEDS: CEROVITE ADV FORMULA TAB PO SCH (08:33)
[2023-07-16] MEDS: ASPIRIN 81 MG ECTAB PO SCH (08:33)
[2023-07-16] MEDS: METOPROLOL TARTRATE 50 MG TAB PO SCH (08:33)
[2023-07-16] MEDS: INSULIN ASPART PER UNIT CHARGE SC SCH ×3 (08:39→18:15)
--- NOTE | 2023-07-16 09:20 | Cardiology Progress Note ---
Date of Service July 16, 2023 Assessment & Plan (1) Elevated troponin: (2) Chest pain: (3) ASCVD (arteriosclerotic cardiovascular disease): (4) Tachycardia: Plan Chest pain. - Symptoms reminiscent of the discomfort associated with the prior NH. - High sensitivity Troponin I appears chronically elevated, flat, as noted below - EKG without change change. - Limited TTE with preserved LV systolic function, without regional wall motion abnormality - Chest x-ray clear - Telemetry benign Recommendations: Lexiscan nuclear stress testing today Metoprolol tartrate dosing increased to 50 mg twice per day this admission for additional heart rate, blood pressure, and angina control Continue ASA and amlodipine Patient previously intolerant to low-dose isosorbide, unable to take statins Continue Evolocumab and Bempedoic Acid Admission and Anticipated Discharge Date Admission Date: July 15, 2023 Supervising Physician Co-Signing Physician Notes Patient seen and examined at the bedside. Feeling well today. No recurrent chest discomfort. Requesting discharge if possible. Nuclear stress test scheduled for 3:30 PM. Patient denies orthopnea, PND, or lower extremity edema. No palpitations, lightheadedness, dizziness, syncope, or near syncope. PE: VSS. Gen: NAD, AAO x3. Heart: Regular rhythm. Normal S1S2. No murmur. Lung: Clear B/L, No rales, rhonchi, wheeze. Ext: no edema. A/P: Agree with above PA-C history, physical exam, assessment and plan. Lexiscan nuclear stress test today. Metoprolol titrated to 50 mg twice daily yesterday. Further recommendations pending result of stress test. Addendum: Preliminary review of Lexiscan nuclear stress test demonstrates normal perfusion. There is no evidence of inducible ischemia. Normal LV function and wall motion. Continue current medications. Outpatient cardiology follow-up with Dr. Thomas as scheduled. Subjective Patient seen and examined. Chart, medications, and telemetry reviewed. High-sensitivity troponin I 26.3 -> 31.0 -> 30.7 -> 29.7 -> 37.0 Limited resting echocardiography on July 15, 2023 showed preserved LV systolic function, EF 55 to 60%, without regional wall motion abnormality. Telemetry: Sinus throughout with heart rates ranging from the 60s to 90s No chest pain since admission. Patient NPO for nuclear stress testing this afternoon Review of Systems Review of Systems: Complete Review of Systems is as stated above, negative, or noncontributory. Physical Exam Physical Exam: General: Alert, no distress Skin: No rash Eyes: PER. Conjunctiva pink, sclera clear. HENT: Cochlear implant. Normocephalic. Atraumatic. Neck: No carotid bruits. No JVD. No HJR. Heart: RRR, 76 bpm. No murmur. No rub. No gallop. PMI is nondisplaced. Lungs: Clear to auscultation. Abdomen: +BS. Soft. Nontender. No masses. No organomegaly. Extremities: No clubbing, cyanosis, or edema. Pulses: radial=2/4, posterior tibial=2/4. Limited neurological examination: No focal deficit. Results & Data Vital Signs (Past 12 Hours) Vital Signs Temp Pulse Pulse Pulse Resp BP BP 07/16/23 08:34 36.4 C L 96 H 18 125/75 07/16/23 07:09 63 07/16/23 03:33 36.7 C 79 18 123/76 07/16/23 00:13 82 07/16/23 00:00 36.8 C 83 18 111/64 Pulse Ox O2 Del Method 07/16/23 08:34 95 Room Air 07/16/23 07:09 07/16/23 03:33 97 Room Air 07/16/23 00:13 07/16/23 00:00 96 Room Air Laboratory Results Cardiac Enzymes 07/15/23 07/15/23 07/15/23 Range/Units 10:05 16:34 21:52 Troponin I High Sens 30.7 H 29.7 H 37.0 H (0-14) pg/ml CBC 07/15/23 07/16/23 Range/Units 10:05 06:45 WBC 7.27 6.68 (4.8-10.8) K/ul RBC 4.18 L 4.17 L (4.20-5.40) M/uL Hgb 12.1 12.1 (12.0-16.0) g/dl Hct 35.1 L 35.8 L (37.0-47.0) % Plt Count 254 272 (130-400) K/uL Neut # (Auto) 4.36 (1.40-6.50) K/uL Lymph # (Auto) 2.20 (1.2-3.4) K/uL Haines # (Auto) 0.50 (0.11-0.59) K/uL Eos # (Auto) 0.11 (0-0.50) K/uL Baso # (Auto) 0.08 (0-0.2) K/uL Comprehensive Metabolic Panel 07/15/23 07/16/23 Range/Units 10:05 06:45 Sodium 136 136 (136-145) mmol/L Potassium 4.1 4.3 (3.5-5.1) mmol/L Chloride 104 104 (98-107) mmol/L Carbon Dioxide 25 25 (21-32) mmol/L BUN 14 18 (6-23) mg/dl Creatinine 0.59 L 0.60 (0.6-1.2) mg/dl Glucose 207 H 110 H (70-99(Fasting)) mg/dl Calcium 8.9 9.1 (8.6-10.3) mg/dl Intake and Output 07/15/23 07/16/23 07/16/23 22:59 06:59 14:59 Intake Total 100 / 100 Balance 100 / 100 Intake: Oral 100 / 100 Other: Other Intake Source NPO Weight 51.6 kg Weight Measurement Method [facility]
--- NOTE | 2023-07-16 16:43 | Myocardial Perfusion Study ---
Date of Service July 16, 2023 Myocardial Perfusion Study [facility] Myocardial Perfusion Study Report Lexiscan nuclear stress test report. Indication: Chest discomfort, elevated troponin. History: Atherosclerotic coronary artery disease status post drug-eluting stent implantation to the proximal LAD and subtotal occlusion of the right posterior descending artery filling via left to right collaterals. Procedural summary: Stress test performed according to the Lexiscan protocol for 4 minutes and 47 seconds. Patient achieved a work level of 1.0 METS. The resting heart rate was 75 bpm, misael to a maximal heart rate of 109 bpm. This value represents 70% of the maximal, age-predicted heart rate. Resting blood pressure 125/70. Maximum blood pressure 125/70. Normal heart rate and blood pressure response to Lexiscan infusion. Symptoms: Headache For the stress portion of the study 32.2 mCi of Tc 99m Cardiolite IV was injected at 1505 p.m. on 07/16/2023. 30 minutes following the injection imaging of the heart was performed in multiple projections. For the rest portion of the study 10.8 mCi of Tc 99m Cardiolite was injected IV at 1320 p.m. 1 hour following the injection, imaging of the heart was performed in the same projections. Resting ECG: Normal sinus rhythm with left axis deviation, age-indeterminate anteroseptal infarct, T wave abnormality consider lateral ischemia. Stress ECG: No significant ST changes. Raw data: No significant extracardiac uptake of isotopic tracer on rotating images. Right ventricle: Not well visualized. Resting images: Normal perfusion. Stress images: Normal perfusion. Gated SPECT imaging: Normal left ventricular thickening and wall motion. Calculated ejection fraction is 53%. Conclusion: Normal Lexiscan nuclear stress test. No evidence of ischemia or scar. Normal left ventricular systolic function.
--- NOTE | 2023-07-16 16:49 | Discharge Summary ---
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 Patient says around 11 PM she had chest pain radiating to left arm took 2 nitros and called her son and was brought in here. Currently chest pain-free. Patient is hard of hearing has cochlear implants. Currently denies any pain no shortness of breath. No nausea. No abdominal pain. No cough. No runny nose. Afebrile. She had some dizziness during the episode. Normal bowel and bladder movements. Resting comfortably and medically stable. She was admitted in May 07 with similar episode and work-up was negative at that time Past medical history as mentioned above Past surgical history Left heart catheterization and stent placement, EGDs, laparoscopic cholecystectomy, muscle biopsy right thigh, dilatation of Schatzki ring with EGD. FAMILY HISTORY: Significant for brother has diabetes; father has diabetes, father had CAD in his 50s; mother had heart disease in her 70s; daughter has MELAS syndrome; son has retinal detachment. SOCIAL HISTORY: Currently lives with her son. Former smoker, quit in 1991. No alcohol use. No drug use. Admission Exam Per Admitting Provider General- Not in distress. Hard of hearing. Head- atraumatic Eyes- PERRL. ENT- oropharynx clear Neck- supple, no JVD. Lungs- clear to auscultation no added sounds. Heart- regular rhythm; no murmur, no gallop,. Abdomen- normal bowel sounds, soft, nontender, no distension. Extremities- no pretibial edema, no erythema seen. Neuro- alert, oriented x 3; PERRL, EOMI; no facial palsy; no dysarthria;moves extremities Skin- warm & dry Principal Diagnosis Chest pain, rule out ACS Discharge Exam GENERAL: Alert and oriented x3. NAD, on RA. [facility] [place]. HEENT: No pallor, no icterus. Pupils equal, round and reactive to light. Oral mucosa moist. NECK: No JVD, no neck masses. HEART: S1 and S2 heard. Regular rate and rhythm. No murmur, no gallop. RESPIRATORY SYSTEM: Normal AP diameter. No accessory muscle use. No wheezing, no crackles. ABDOMEN: Soft, bowel sounds present, nontender, no distention. CENTRAL NERVOUS SYSTEM: No facial droop. Speech is clear. Obeys simple commands. Moves extremities. EXTREMITIES: No edema, no erythema seen. Discharge Data Allergies Allergy/AdvReac Type Severity Reaction Status Date / Time atorvastatin AdvReac Intermediate myalgias, Verified 07/15/23 02:06 dysarthria prednisone AdvReac Intermediate metabolic-h Verified 07/15/23 02:06 yperglycemi a Consultations 07/15/23 04:28 ED Decision to Admit Stat 07/15/23 09:56 Consult Cardiology Routine Hospital Course (1) Chest pain: Plan 67-year-old female with PMH of T1DM, diabetic polyneuropathy, HLD, chronic rhinitis, CAD, status post cardiac stent, HTN, hemiplegia and aphasia from post- stroke, Schatzki ring, Mnire's disease, cochlear implant in place on the left, MELAS syndrome who lives at home with her son presented to the ED 07/15 with complaint of chest pain radiating to left arm, relieved with nitro. She was managed for the following: Chest pain, R/O ACS: History of cardiac stent placement. Chest pain relieved with nitro's at home. Troponin x3 -- flat trend. Admitting EKG with normal sin us rhythm, no acute ST or T changes. Admitting echo with EF of 55 to 60%, no regional wall motion abnormality. Cardiology on board, metoprolol dose increased to 50 mg twice a day, stress test was negative for inducible ischemia. Patient with no further chest pain. Patient would like to go home. Patient is hemodynamically stable. Other chronic medical conditions: Continue with/resume home meds as and when able. History of coronary artery disease, status post stent: Continue her aspirin, metoprolol. The patient takes Repatha shots. History of cerebrovascular accident: On aspirin and cholesterol medication. Hypertension: On amlodipine, metoprolol tartrate. Will monitor the blood pressure. History of diabetes: Continue with Lantus and ISS.. The patient is currently n.p.o.CAn cut back on Lantus if remain npo. Follow the blood sugars. HbA1c levels. History of MELAS syndrome. Deep venous thrombosis prophylaxis: Sequential compression devices for now. Patient being discharged home with family support with following instruction at the point of discharge: Follow-up with your PCP in a week time upon discharge, and likely you will need labs CBC/CMP/magnesium/phosphorus. Follow-up with your cardiology as scheduled prior. You were admitted for chest pain, you underwent stress test, it was negative. Your metoprolol dose has been increased to 50 mg twice a day. Take your medications as prior. Home Health Attestation I certify that this patient is under my care and that I, or a physicians cable splicer assistant working with me, had a face to-face encounter that meets the home health [id number] encounter requirements with this patient. The encounter with the patient was in whole, or in part, for the following medical condition, which is the primary reason for home health care (list medical condition): I certify that, based on my findings, the following services are medically necessary home health services: My clinical findings support the need for the above services because: Further, I certify that my clinical findings support that this patient is homebound (i.e. absences from home require considerable and taxing effort and are for medical reasons or buddhism services or infrequently or of short duration when for other reasons) because: Certification for Home Health Services: Based on the above findings, I certify that this patient is confined to the home and needs intermittent nursing home care, physical therapy and/or speech therapy or continues to need occupational therapy. The patient is under my care, and I have initiated the establishment of the plan of care. This patient will be followed by a physician who will periodically review the plan of care. Total Time Total Time Spent Total Time Spent (In Minutes): 45 Discharge Plan Discharge Items Patient Disposition: Home - Self-Care Reason For Visit: CHEST PAIN Discharge Diagnosis: Chest pain, rule out ACS Condition on Discharge: Good Activity: Resume your previous activity Non-emergency contact: Primary Care Provider Call non-emergency contact if: you have any medication questions, your symptoms worsen and your temperature is above 101 Follow-up/Referrals: Amairani Owen MD [Primary Care Provider] - Diet: Heart Healthy Addtl Attending Provider Instructions: Follow-up with your PCP in a week time upon discharge, and likely you will need labs CBC/CMP/magnesium/phosphorus. Follow-up with your cardiology as scheduled prior. You were admitted for chest pain, you underwent stress test, it was negative. Your metoprolol dose has been increased to 50 mg twice a day. Take your medications as prior. Pending Studies at Discharge: No Stand-Alone Forms: My [facility], Smoking Cessation Medications and DC Order Prescriptions: New metoprolol tartrate 50 mg Tablet 50 mg PO BID Qty: 60 0RF Continued insulin aspart U-100 [Novolog FlexPen U-100 Insulin] 100 unit/mL (3 mL) insulin pen 6 unit SUBCUT TIDM insulin glargine [Lantus Solostar U-100 Insulin] 100 unit/mL (3 mL) Insulin Pen 16 unit SUBCUT HS Lipotriad Vision Support 12,500 unit- 12.5 mg Capsule 1 cap PO QAM nitroglycerin [Nitrostat] 0.4 mg Tablet, Sublingual 0.4 mg sublingual UD PRN (Reason: chest pain) Qty: 30 1RF aspirin 81 mg Tablet,Delayed Release (Dr/Ec) 81 mg PO QAM Qty: 90 1RF amlodipine 2.5 mg tablet 2.5 mg PO DAILY hydrocortisone-acetic acid 1-2 % Drops 3 drp OTIC (EAR) BID PRN (Reason: ITCHY EARS) Repatha SureClick 140 mg/mL pen injector 140 mg SUBCUT .[id number] Excedrin Migraine 250-250-65 mg Tablet 1 tab PO Q6H PRN (Reason: Headache) acetaminophen [Tylenol] 325 mg capsule 650 mg PO Q8H PRN (Reason: fever or pain) Qty: 60 0RF coenzyme Q10 [CoQ-10] 100 mg Capsule 100 mg PO DAILY bempedoic acid 180 mg Tablet 180 mg PO DAILY Discontinued metoprolol tartrate 25 mg tablet 37.5 mg PO BID Discharge Orders: Discharge Order (Routine); Ordered 07/16/23 Ordered By: Bello Pereira Admission Data Admit Date/Time: 07/15/23 05:12 Attending Provider: Bello Pereira Admit Provider: José Luis Erickson Primary Care Provider: Amairani Owen Other Providers: José Luis Erickson ; Pat Morataya ; Sudhir Thomas ; Aiden Cabral ; Rajinder Sampson ; Mian Sanchez. ; Juan Jose Pichardo ; Quynh Marrero ; Jennifer Nava ; Pat Aguilar ; Jasson Resendiz ; Elvin Boyd ; Marcos Hernandez
== END 2023-07-16 18:33 | disposition home or self-care (01) ==
LOC: EDINP 01:24 → ED 01:24 → SUATTDRO 05:12 → 2N 09:56

== ENCOUNTER 2023-12-29 11:39 | Inpatient (IN) ==
--- OUTSIDE RECORDS SUMMARY | 2023-12-29 11:43 | External Medical Summary | Summary of Care ---
Author Name Unknown Organization [facility] Address [address] [place] [address] Phone [phone] Care Team Providers Care Short Order Fry Cook Name Role Phone Amairani Boyd MD Primary Care Prov ider Reason for Visit * Reason Comments Medication Discussion Encounter Details Date Type Department Care Team (Late st Contact Info) Description 10/25/2023 1:30 PM [facility] Pharmacy Pharmacy Call Center [phone] [place] [address] [address], [facility] [phone] [facility] [place] [id number] Encounter for medication review* Allergies Active Allergy Reactions Criticality Noted Date Comments Atorvastatin Other (Please comment) 05/17/2014 Myalgias, dysarthria Prednisone Other (Please comment) 04/13/2013 Metabolic-hyperglycemia documented as of this encounter (statuses as of 10/25/2023) Medications Medication Sig Dispensed Refills Start Date End Date Status Insulin Syringe-Needle U-100 30G X 1/2" 0.3 ML MISC Use up to 4 times a day with insulin 1 Box Dosing Unit 11 02/28/2017 Active ASPIRIN LOW DOSE 81 MG TBEC Take 1 Tablet by mouth in the morning. In the morning.. 0 05/17/2020 Active Lipotriad Vision Support Oral Capsule Take by mouth once . 0 Active Co Q-10 200 MG Oral Capsule Take by mouth . 0 Active Excedrin Migraine 250-250-65 MG Oral Tablet (Aspirin-Acetaminop hen-Caffeine) Take 1 Tablet by mouth every 6 hours as needed. 0 Active Evolocumab 140 MG/ML Subcutaneous Solution Auto-injector (Repatha SureClick)Indicatio ns:Dyslipidemia, goal LDL below 70 Inject 140 mg under the skin every 14 days. 6 mL 3 03/04/2023 Active Nitroglycerin 0.4 MG Sublingual Tablet Sublingual (Nitrostat) PLACE 1 TABLET UNDER THE TONGUE EVERY 5 MINUTES UP TO 3 DOSES NEEDED FOR CHEST PAIN. IF NO RELIEF CALL 911 OR GO TO ER 25 Tablet 11 02/25/2023 02/25/2024 Active amLODIPine Besylate 2.5 MG Oral Tablet (Norvasc)Indication s:Atherosclerosis of [place] coronary artery of [place] heart without angina pectoris,HTN, goal below 140/90,S/P coronary artery stent placement TAKE ONE TABLET BY MOUTH EVERY DAY 90 Tablet 3 12/21/2022 12/21/2023 Active Glucose Blood In Vitro StripIndications:Ty pe 1 diabetes mellitus with hemoglobin A1c goal of 7.0%-8.0% (FORMERLY [facility]) USE TO TEST BLOOD SUGAR 4 TIMES DAILY 600 Strip 2 06/11/2023 Active NovoLOG FlexPen 100 UNIT/ML Subcutaneous Solution Pen-injectorIndicat ions:Type 1 diabetes mellitus with hemoglobin A1c goal of 7.0%-8.0% (FORMERLY [facility]) INJECT 6 UNITS UNDER THE SKIN PRIOR TO MEALS 30 mL 0 09/18/2023 Active BD Pen Needle Mini U/F 31G X 5 MM (Insulin Pen Needle)Indications: Type 1 diabetes mellitus with hemoglobin A1c goal of 7.0%-8.0% (FORMERLY [facility]) Use 4 times a day with insulin pens. DX e10.9 400 Each 0 09/18/2023 Active Metoprolol Tartrate 50 MG Oral Tablet (Lopressor)Indicati ons:HTN, goal below 140/90 Take 1 Tablet by mouth 2 times a day. 0 10/21/2023 Active Isosorbide Mononitrate ER 30 MG Oral Tablet Extended Release 24 Hour (Imdur) Take 1 Tablet by mouth in the morning. 90 Tablet 3 10/22/2023 Active Insulin Glargine 100 UNIT/ML Subcutaneous Solution (Lantus) Inject under the skin at bedtime. 20 units 0 Active documented as of this encounter (statuses as of 10/25/2023) Active Problems Problem Noted Date Diagnosed Date Cochlear implant in place 09/06/2022 Aphasia, post-stroke 03/23/2022 Hemiplegia, post-stroke 03/23/2022 Receptive aphasia 02/15/2022 History of VT (myocardial infarction) 12/15/2020 S/P coronary artery stent placement 06/15/2020 History of colon polyps 02/03/2019 History of transient ischemic attack 02/03/2019 Diabetic polyneuropathy asso ciated with type 1 diabetes mellitus 08/16/2017 Statins contraindicated 04/19/2017 HTN, goal below 140/90 01/30/2016 Overview: Per HTN Protocol #27. Slurred speech 07/28/2013 Snoring 01/26/2013 Overview: ICD-10 update of inactive term Type 1 diabetes mellitus wit h hemoglobin A1c goal of 7.0%-8.0% 12/07/2011 Overview: ICD-10 update of inactive term Chronic rhinitis 10/29/2011 History of tobacco use 01/26/2011 Dyslipidemia, goal LDL below 70 11/09/2009 Overview: Per Lipid Taxonomy. Coronary artery disease invo lving [place] coronary artery of [place] heart without angina pectoris 08/11/2009 Chronic otitis externa 06/02/2008 ADVANCE DIRECTIVE INFORMATION 04/22/2007 Overview: No, Advance Directive brochure given to patient at prior appointment. Meniere's disease of both ears Sensorineural hearing loss, bilateral Temporomandibular joint disorders, unspecified Degeneration of cervical intervertebral disc Schatzki's ring documented as of this encounter (statuses as of 10/25/2023) Resolved Problems Problem Noted Date Diagnosed Date Resolved Date MELAS (myopathy, encephalopa thy, lactic acidosis and stroke) 03/01/2023 03/01/2023 Grief reaction with prolonged bereavement 10/30/2022 03/01/2023 Protein-calorie malnutrition 10/08/2022 03/01/2023 Acute ischemic left middle c erebral artery (MCA) stroke 02/15/2022 03/13/2022 Non-ST elevation (NSTEMI) my ocardial infarction 05/23/2020 12/15/2020 HTN, GOAL BELOW 140/80 07/14/201203/01 Overview: Per HTN Protocol #27. Hyperkalemia 04/09/2012 12/23/2019 Dyslipidemia, goal LDL below 100 12/07/2011 12/05/2020 HTN, goal below 130/80 11/21/200907/17 Type 2 diabetes mellitus wit h hemoglobin A1c goal of less than 7.0% 09/08/2009 12/07/2011 Overview: Modified per Diabetes protocol #14. ICD-10 update of inactive term EXAMINATION OF PARTICIPANT I N CLINICAL TRIAL- genomics 08/15/2009 03/10/2010 Overview: Renamed Per Clinical Trials Billing Project. Study Titile: Genomics Markers for Patients with Cardiovascular Disease Project # [id number] PI: Selina Robert MD Please call [phone] with study related questions GENOMICS CARDIO RESEARCH OTHER*[id number] 08/15/2009 01/01/2017 Overview: Renamed Per Clinical Trials Billing Project. Study Titile: Genomics Markers for Patients with Cardiovascular Disease Project # [id number] PI: Selina Robert MD Please call [phone] with study related questions Abnormal electrocardiogram 07/20/2009 0 12/23/2019 TIA (transient ischemic attack) 07/20/2009 02/03/2019 Vertigo 07/20/2009 01/07/2012 Benign neoplasm of colon 04/12/200810/2019 Overview: adenomatous; repeat colonoscopy in 5 yrs Macular degeneration 03/06/2004 022 Encounter for long-term (cur rent) use of medications 12/17/2001 12/03/2007 Overview: ICD-10 update of inactive term Dyslipidemia, goal to be determined 12/17/2001 11/09/2009 Overview: Per Lipid Taxonomy. Migraine variant 06/24/2000 02/15/2022 Diabetic polyneuropathy 06/24/200007/27 Overview: ICD-10 update of inactive term Chest pain 06/24/2000 12/03/2007 DIABETES,ADULT ONSET INSULIN REQ 06/24/2000 09/08/2009 Overview: Modified per Diabetes protocol #14. Other acute otitis externa 0 12/03/2007 Allergic rhinitis 12/03/2007 Dysfunction of eustachian tube 12/03/2007 documented as of this encounter (statuses as of 10/25/2023) Immunizations Name Administration Dates Next Due DTaP Dipth/Tet/Acell Pertussis (Infanrix), Peds 08/16/2021 Hepatitis B, 20+ yrs 12/14/2014,07/06/2014,05/17 Pneumococcal Conjugate Vacc, 13 Valent (Prevnar) 08/16/2017 Pneumococcal Conjugate Vacci ne, 20-valent ([id number]) 10/30/2022 Pneumococcal Polysaccharide PPV23 (Pneumovax) 07/17/2006 SEASONAL INFLUENZA, PF, 6 M & Above, IM , (FLULAVAL or FLUZONE) 08/16/2021,09/29/2020,09/04/2019,08/19,08/16/2017 Seasonal Influenza, Quadriva lent Hd (Fluzone Hd) 08/21/2022 Seasonal Influenza, Quadriva lent, No Preserve, IM 10/12/2016,08/22/2015 Seasonal Influenza, Split, I IV3, With Preserve, Inj 09/20/2014,09/22/2013,08/18/2012,08/21,11/07/2010,09/22/2009,10/14/2006 TDAP (age 11 and older)(Adacel) 07/03/2011 Varicella Zoster Vaccine (Adult) 04/12/2017 Zoster Vaccine Recombinant (Shingrix) 01/18/2021 ,06/07/2020 documented as of this encounter Social History Tobacco Use Types Packs/Day Years Used Date Smoking Tobacco: Former Smokeless Tobacco: Never Comments:quit 1991- smoked o ff and on since age 21 Alcohol Use Standard Drinks/Week Comments No 0 (1 standard drink = 0.6 oz pur e alcohol) PHQ-2 Answer Date Recorded PHQ Adult Total Score 0 03/01/2023 Hunger Vital Sign Answer Date Recorded Within the past 12 months, y ou worried that your food would run out before you got the money to buy more. Patient refused Within the past 12 months, t he food you bought just didn't last and you didn't have money to get more. Patient refused 05/2023 Sex and Gender Information Value Date Recorded Sex Assigned at Female 03/01/2023 2:31 PM EDT Gender Identity Not on file Sexual Orientation Straight 03/01/2023 2: 31 PM EDT Job Start Date Occupation Industry Not on file Not on file Not on file documented as of this encounter Progress Notes * Merle Baltazar, [facility] - 10/25/2023 1:50 PM EST Images from the original note were not included. PHARMACY MTM PROGRESS NOTE [facility] [phone] [facility] [place] [address] Service Delivery Delivery Method: Phone Outcome: CMR Completed Health Profile Current Conditions: Cardiovascular Disease, Diabetes, General Health, High Blood Pressure, and HighCholesterol Drug allergies & side effects: Review of patient's allergies indicates: Allergen Reactions Atorvastatin Other (Please comment) Myalgias, dysarthria Prednisone Other (Please comment) Metabolic-hyperglycemia Med List Home Medications Provider amLODIPine Besylate 2.5 MG Oral Tablet (Norvasc) Quynh Marrero PA-C TAKE ONE TABLET BY MOUTH EVERY DAY Associated Diagnoses: Atherosclerosis of [place] coronary artery of [place] heart without angina pectoris, HTN, goal below 140/90, S/P coronary artery stent placement ASPIRIN LOW DOSE 81 MG [facility] Patient, History Per Associated Diagnoses: -- BD Pen Needle Mini U/F 31G X 5 MM (Insulin Pen Needle) Amairani Boyd MD Use 4 times a day with insulin pens. DX e10.9 Associated Diagnoses: Type 1 diabetes mellitus with hemoglobin A1c goal of 7.0%- 8.0% (FORMERLY [facility]) Co Q-10 200 MG Oral Capsule Patient, History Per Associated Diagnoses: -- Evolocumab 140 MG/ML Subcutaneous Solution Auto-injector (Repatha SureClick) Sudhir Thomas DO Inject 140 mg under the skin every 14 days. Associated Diagnoses: Dyslipidemia, goal LDL below 70 Excedrin Migraine 250-250-65 MG Oral Tablet (Cguaynu-Azfoqvwciwqtk-Cbbiqixt) Patient, History Per Associated Diagnoses: -- Glucose Blood In Vitro Strip Amairani Boyd MD USE TO TEST BLOOD SUGAR 4 TIMES DAILY Associated Diagnoses: Type 1 diabetes mellitus with hemoglobin A1c goal of 7.0%- 8.0% (FORMERLY [facility]) Insulin Glargine 100 UNIT/ML Subcutaneous Solution (Lantus) Patient, History Per Associated Diagnoses: -- Insulin Syringe-Needle U-100 30G X 1/2" 0.3 ML [facility] Grazyna Cotton MD Use up to 4 times a day with insulin Associated Diagnoses: -- Isosorbide Mononitrate ER 30 MG Oral Tablet Extended Release 24 Hour (Imdur) Laurie Romano PA-C Take 1 Tablet by mouth in the morning. Associated Diagnoses: -- Lipotriad Vision Support Oral Capsule Patient, History Per Associated Diagnoses: -- Metoprolol Tartrate 50 MG Oral Tablet (Lopressor) Laurie Romano PA-C Associated Diagnoses: HTN, goal below 140/90 Nitroglycerin 0.4 MG Sublingual Tablet Sublingual (Nitrostat) Amairani Boyd MD PLACE 1 TABLET UNDER THE TONGUE EVERY 5 MINUTES UP TO 3 DOSES NEEDED FOR CHEST PAIN. IF NO RELIEF CALL 911 OR GO TO ER Associated Diagnoses: -- NovoLOG FlexPen 100 UNIT/ML Subcutaneous Solution Pen-injector Amairani Boyd MD INJECT 6 UNITS UNDER THE SKIN PRIOR TO MEALS Associated Diagnoses: Type 1 diabetes mellitus with hemoglobin A1c goal of 7.0%- 8.0% (FORMERLY [facility]) TIPs None Action Plan 1. What type of item is this? Non-medication related Describe the item for the patient takeaway: your blood sugar Describe what the patient should do (for the patient takeaway): When your blood sugar is too high or too low your body could experience symptoms. Signs include: dizziness, shakiness, feeling hungry, feeling thirsty, sweatiness, nervousness, irritability, weakness, sleepiness, blurred vision, increased urination, lack of coordination. If you notice any of these signs, it is a great time to check your blood sugar. When your blood sugar is 70 mg/dl or below, it is important to increase blood sugar immediately. Low blood sugar could lead to coma and even . When you notice your sugar is low, eat a small snack containing sugar. Some examples include: drink a small amount of orange juice (4 ounces), 4 ouncesof regular soda or milk, taking glucose tablets (15 grams), or eat 1 tablespoonful of sugar. Wait 15 minutes, and recheck your blood sugar. If your sugar is still low, try to increase it again by eating a small amount of sugar. Recheck your blood sugar in 15 minutes. If after two attempts to raise it, and your blood sugar is still low-call your doctor immediately. Takeaway Service Information Date CMR was completed: 10/25/2023 Who was the recipient of the CMR service: Patient Was the patient in a extermination supervisor care (LTC) facility when the CMR was completed? No Pharmacist's availability for questions: Saturday-Saturday 8:00am-4:30pm Takeaway Information Will the Patient Takeaway be sent to the Patient or someone else? Patient Language Template for the Patient Takeaway: Vincentian Additional notes for the Patient Takeaway (optional): n/a I attest that I have reviewed and updated the patient's conditions, allergies, and medications to the best of my ability. Patient Access: Is patient utilizing [facility]? Yes Is patient utilizing [employer]? Yes Additional Call Notes Adherence is unclear based on not being able to confirm some details with patient 30 min cmr Merle Baltazar [facility] Clinical Pharmacist [facility] ([facility]) 10/25/2023, 1:54 PM documented in this encounter Plan of Treatment Upcoming Encounters Date Type Department Care Team (Late st Contact Info) Description 11/21/2023 7:00 AM EST Pharmacy Cardiology [address] [place] [phone] [facility] Cardiology [address] [place] [address] 12/31/2023 10:30 AM EST Imaging [facility] 2nd Floor [facility] [address] [facility] [place] [address] Gw, Excess Time Radiology [address] [facility] [place] [address] 01/08/2024 10:40 AM EST Office Visit Neurology [facility] [address] [place] [address] Jennifer Oviedo PA-C [address] [facility] [place] [address] Scheduled Procedures Name Priority Associated Diagnoses Date/Ti me COLONOSCOPY FLEXIBLE PROXIMAL DIAGNOSTIC Recall History of colon polyps Health Maintenance Due Date Last Done Comments COVID-19 Vaccine (#1) 04/12/1956 Mammogram 01/18/2022 01/18/2021, 11/26, 05/25/2019, Additional history exists Diabetic Eye Exam 12/05/2022 12/05/2021, , 11/23/2019, Additional history exists Albumin/Creatinine Ratio 02/15/2023 022, 02/06/2021, 09/04/2019, Additional history exists COLONOSCOPY-EVERY 5 YRS AGES 18-100 04/29/2023 04/29/2018, 04/29/2018, 04/17/2013, Additional history exists HbA1c 05/01/2023 10/31/2022, 01/24, 08/30/2021, Additional history exists Influenza Vaccine (FLU shot) (#1) 2023 08/21/2022, 08/16/2021, 09/29/2020, Additional history exists GFR 10/31/2023 10/31/2022, 01/23, 02/01/2022, Additional history exists Depression Screening 03/01/2024 03/01/2023 Diabetic Foot Exam 03/01/2024 03/01/2023, 0 03/23/2022, 01/10/2021, Additional history exists DXA Scan 02/04/2025 02/04/2023, 02/2020, 06/18/2017 DTaP,Tdap,and Td Vaccines (3 - Td or Tdap) 08/16/2031 08/16/2021, 07/03/2011, 09/17/1997 Hepatitis B Completed 12/14/2014, 06/25, 05/17/2014 Zoster Vaccines Completed 01/18/2021, 05/25, 04/12/2017 Pneumococcal Vaccine: 65+ Years Completed 10/30/2022, 08/16/2017, 07/17/2006 GARDASIL-HPV IMMUNIZATION SERIES Aged Out No longer eligible based on patient's age to complete this topic MENINGOCOCCAL (MENACTRA/MENVEO) Aged Out No longer eligible based on patient's age to complete this topic documented as of this encounter Medical Devices Implanted Type Area Barber Shop Operator Device Identifier Shelf Expiration Date Model / Serial / Lot Nucleus [id number] Cochlear Implant With Contour Advance Electrode Implanted:Qty: 1 on 10/04/2015 by Tonny Joshua MD at [place] [facility] Left: Ear [facility] 06/14/2017 [id number] / [id number] / Description:[id number] documented as of this encounter Visit Diagnoses Diagnosis Encounter for medication review- Primary Encounter for long-term (current) use of other medications documented in this encounter Advance Directives Latest Code Status on File Code Status Date Activated Date Inactivated Comments Full Code 10/04/2015 11:35 AM 10/05/2015 4:32 PM Th is order reflects the patients wishes and were consensually agreed upon. Question Answer Comments Discussion of Advance Directives occurred with: Not Discussed Does the patient have a Living Will? No Does the patient have Health Care Power of Browning Processor? No Care Teams Short Order Fry Cook Relationship Specialty Start Date End Date Amairani Boyd MD [address] [place] [address] [place] [id number] PCP - General Family Medicine 12/23/19 documented as of this encounter
--- OUTSIDE RECORDS SUMMARY | 2023-12-29 11:43 | External Medical Summary | Summary of Care ---
Author Name Unknown Organization [facility] Address [address] [place] [address] Phone [phone] Care Team Providers Care Vending Machine Operator Name Role Phone Amairani Boyd MD Primary Care Prov ider Reason for Visit * Reason Comments Medication Discussion Encounter Details Date Type Department Care Team (Late st Contact Info) Description 10/25/2023 1:30 PM [facility] Pharmacy Pharmacy Call Center [phone] [place] [address] [place], [facility] [phone] [facility] [place] [address] Encounter for medication review* Allergies Active Allergy [...] 2.5 MG Oral Tablet (Norvasc)Indication s:Atherosclerosis of [place] coronary artery of [place] heart without angina pectoris,HTN, goal below 140/90,S/P coronary artery stent placement TAKE ONE TABLET BY MOUTH EVERY DAY 90 Tablet 3 12/21/2022 12/21/2023 Active Glucose Blood In Vitro StripIndications:Ty pe 1 diabetes mellitus with hemoglobin A1c goal of 7.0%-8.0% ([facility]) USE TO TEST BLOOD SUGAR 4 TIMES DAILY 600 Strip 2 06/11/2023 Active NovoLOG FlexPen 100 UNIT/ML Subcutaneous Solution Pen-injectorIndicat ions:Type 1 diabetes mellitus with hemoglobin A1c goal of 7.0%-8.0% ([facility]) INJECT 6 UNITS UNDER THE SKIN PRIOR TO MEALS 30 mL 0 09/18/2023 Active BD Pen Needle Mini U/F 31G X 5 MM (Insulin Pen Needle)Indications: Type 1 diabetes mellitus with hemoglobin A1c goal of 7.0%-8.0% ([facility]) Use 4 times a day with insulin [...] post-stroke 03/23/2022 Receptive aphasia 02/15/2022 History of [place] (myocardial infarction) 12/15/2020 S/P coronary artery stent [...] Lipid Taxonomy. Coronary artery disease invo lving [place] coronary artery of [place] heart without angina pectoris 08/11/2009 Chronic otitis [...] for Patients with Cardiovascular Disease Project # [id number] PI: Selina Robert MD Please call [phone] with study related questions GENOMICS CARDIO RESEARCH OTHER*[id number] 08/15/2009 01/01/2017 Overview: Renamed Per Clinical Trials Billing Project. Study Titile: Genomics Markers for Patients with Cardiovascular Disease Project # [id number] PI: Selina Robert MD Please call [phone] with study related questions Abnormal electrocardiogram 07/20/2009 [...] (Prevnar) 08/16/2017 Pneumococcal Conjugate Vacci ne, 20-valent ([id number]) 10/30/2022 Pneumococcal Polysaccharide PPV23 (Pneumovax) 07/17/2006 SEASONAL INFLUENZA, PF, 6 M & Above, IM , (FLULAVAL or FLUZONE) 08/16/2021,09/29/2020,09/04/2019,08/19,08/16/2017 Seasonal Influenza, Quadriva lent Hd (Fluzone Hd) 08/21/2022 Seasonal Influenza, Quadriva lent, No Preserve, IM 10/12/2016,08/22/2015 Seasonal Influenza, Split, I IV3, With Preserve, Inj 09/20/2014,09/22/2013,08/18/2012,08/21,11/07/2010,09/22/2009,10/14/2006 TD - Tetanus/Diptheria (ADULT) 09/17/1997 TDAP (age 11 and older)(Adacel) 07/03/2011 Varicella [...] this encounter Progress Notes * Merle Baltazar, [facility] - 10/25/2023 1:50 PM EST Images from the original note were not included. PHARMACY MTM PROGRESS NOTE [facility] ([facility]) [address] [facility] [place] [address] Service Delivery Delivery Method: Phone Outcome: CMR Completed Health Profile Current Conditions: Cardiovascular Disease, Diabetes, General Health, High Blood Pressure, and HighCholesterol Drug allergies & side effects: Review of patient's allergies indicates: Allergen Reactions Atorvastatin Other (Please comment) Myalgias, dysarthria Prednisone Other (Please comment) Metabolic-hyperglycemia Med List Home Medications Provider amLODIPine Besylate 2.5 MG Oral Tablet (Norvasc) Quynh Marrero, PAMary EllenC TAKE ONE TABLET BY MOUTH EVERY DAY Associated Diagnoses: Atherosclerosis of [place] coronary artery of [place] heart without angina pectoris, HTN, goal below 140/90, S/P coronary artery stent placement ASPIRIN LOW DOSE 81 MG [facility] Patient, History Per Associated Diagnoses: -- BD Pen Needle Mini U/F 31G X 5 MM (Insulin Pen Needle) Amairani Boyd MD Use 4 times a day with insulin pens. DX e10.9 Associated Diagnoses: Type 1 diabetes mellitus with hemoglobin A1c goal of 7.0%- 8.0% ([facility]) Co Q-10 200 MG Oral Capsule Patient, History Per Associated Diagnoses: -- Evolocumab 140 MG/ML Subcutaneous Solution Auto-injector (RepMapMyIDa ShopIgniterick) Sudhir Thomas DO Inject 140 mg under the skin every 14 days. Associated Diagnoses: Dyslipidemia, goal LDL below 70 Excedrin Migraine 250-250-65 MG Oral Tablet (Nhkbkrn-Kfyprkvmqfkoa-Eieirwnf) Patient, History Per Associated Diagnoses: -- Glucose Blood In Vitro Strip Amairani Boyd MD USE TO TEST BLOOD SUGAR 4 TIMES DAILY Associated Diagnoses: Type 1 diabetes mellitus with hemoglobin A1c goal of 7.0%- 8.0% ([facility]) Insulin Glargine 100 UNIT/ML Subcutaneous Solution (Lantus) Patient, History Per Associated Diagnoses: -- Insulin Syringe-Needle U-100 30G X 1/2" 0.3 ML [facility] Grazyna Cotton MD Use up to 4 [...] with hemoglobin A1c goal of 7.0%- 8.0% ([facility]) TIPs None Action Plan 1. What type [...] service: Patient Was the patient in a chcf care (LTC) facility when the CMR was completed? No Pharmacist's availability for questions: Saturday-Saturday 8:00am-4:30pm Takeaway Information Will the Patient Takeaway be sent to the Patient or someone else? Patient Language Template for the Patient Takeaway: Zambian Additional notes for the Patient Takeaway (optional): n/a I attest that I have reviewed and updated the patient's conditions, allergies, and medications to the best of my ability. Patient Access: Is patient utilizing [facility]? Yes Is patient utilizing [facility]? Yes Additional Call Notes Adherence is unclear based on not being able to confirm some details with patient 30 min cmr Merle Baltazar RPh Clinical Pharmacist [facility] ([facility]) 10/25/2023, 1:54 PM documented in this encounter Plan of Treatment Upcoming Encounters Date Type Department Care Team (Late st Contact Info) Description 11/21/2023 7:00 AM EST Pharmacy Cardiology [address] [place] [address] Ben [facility] Cardiology [address] [place] [address] 12/31/2023 10:30 AM EST Imaging [facility] 2nd Floor Cardiology, [place] [address] [facility] [place] [address] Gw, Excess Time Radiology [address] [facility] [place] [address] 01/08/2024 10:40 AM EST Office Visit Neurology [facility] [address] [facility] [place] [address] Jennifer Oviedo PA-C [address] [facility] [place] [address] Scheduled Procedures Name Priority Associated Diagnoses Date/Ti [...] this encounter Medical Devices Implanted Type Area Relief Worker Device Identifier Shelf Expiration Date Model / Serial / Lot Nucleus [id number] Cochlear Implant With Contour Advance Electrode Implanted:Qty: 1 on 10/04/2015 by Tonny Joshua MD at OR [facility] Left: Ear [employer] 06/14/2017 [id number] / [id number] / Description:[id number] documented as of this [...] the patient have Health Care Power of Crop Research Scientist? No Care Teams Vending Machine Operator Relationship Specialty Start Date End Date Amairani Boyd MD [address] [place] [address] [place] [address] PCP - General Family Medicine 12/23/19 documented as of this encounter
--- OUTSIDE RECORDS SUMMARY | 2023-12-29 11:43 | External Medical Summary | Summary of Care ---
Author Name Unknown Organization [facility] Address [address] [place] [address] Phone [phone] Care Team Providers Care Sketch Liner Name Role Phone Amairani Boyd MD Primary Care Prov ider Reason for Referral * Precert (Within 10 days (routine)) - Pending Review Specialty Diagnoses / Procedures Referred By Contac t Referred To Contact Radiology Diagnoses Chest pain, unspecified type Coronary artery disease involving [place] coronary artery of [place] heart with angina pectoris (HCC) S/P coronary artery stent placement Procedures NM MYOCARD PERF IMG SPECT MULT STUDIES WITH PHARM INTERV Laurie Romano PA-C [address] [place] [address] Referral ID Status Reason Start Date Expiration Date Visits Requested Visits Authorized [id number] Pending Review Precert 10/22/2023 999 999 Reason for Visit * Reason Onset Date Comments Appointment 10/22/2023 Encounter Details Date Type Department Care Team (Late st Contact Info) Description 10/22/2023 Telephone Cardiology, [facility] [address] [place] [address] Laurie Romano PA-C [address] [place] [address] [place] [address] Appointment Allergies Active Allergy Reactions Criticality Noted Date Comments Atorvastatin Other (Please comment) 05/17/2014 Myalgias, dysarthria Prednisone Other (Please comment) 04/13/2013 Metabolic-hyperglycemia documented as of this encounter (statuses as of 10/22/2023) Medications Medication Sig Dispensed Refills Start Date [...] 2.5 MG Oral Tablet (Norvasc)Indication s:Atherosclerosis of [place] coronary artery of [place] heart without angina pectoris,HTN, goal below 140/90,S/P coronary artery stent placement TAKE ONE TABLET BY MOUTH EVERY DAY 90 Tablet 3 12/21/2022 12/21/2023 Active Glucose Blood In Vitro StripIndications:Ty pe 1 diabetes mellitus with hemoglobin A1c goal of 7.0%-8.0% ([facility]) USE TO TEST BLOOD SUGAR 4 TIMES DAILY 600 Strip 2 06/11/2023 Active NovoLOG FlexPen 100 UNIT/ML Subcutaneous Solution Pen-injectorIndicat ions:Type 1 diabetes mellitus with hemoglobin A1c goal of 7.0%-8.0% ([facility]) INJECT 6 UNITS UNDER THE SKIN PRIOR TO MEALS 30 mL 0 09/18/2023 Active BD Pen Needle Mini U/F 31G X 5 MM (Insulin Pen Needle)Indications: Type 1 diabetes mellitus with hemoglobin A1c goal of 7.0%-8.0% ([facility]) Use 4 times a day with insulin pens. DX e10.9 400 Each 0 09/18/2023 Active Metoprolol Tartrate 50 MG Oral Tablet (Lopressor)Indicati ons:HTN, goal below 140/90 Take 1 Tablet by mouth 2 times a day. 0 10/21/2023 Active Isosorbide Mononitrate ER 30 MG Oral Tablet Extended Release 24 Hour (Imdur) Take 1 Tablet by mouth in the morning. 90 Tablet 3 10/22/2023 Active documented as of this encounter (statuses as of 10/22/2023) Active Problems Problem Noted Date Diagnosed Date Cochlear implant in place 09/06/2022 Aphasia, post-stroke 03/23/2022 Hemiplegia, post-stroke 03/23/2022 Receptive aphasia 02/15/2022 History of [place] (myocardial infarction) 12/15/2020 S/P coronary artery stent [...] Lipid Taxonomy. Coronary artery disease invo lving [place] coronary artery of [place] heart without angina pectoris 08/11/2009 Chronic otitis externa 06/02/2008 ADVANCE DIRECTIVE INFORMATION 04/22/2007 Overview: No, Advance Directive brochure given to patient at prior appointment. Meniere's disease of both ears Sensorineural hearing loss, bilateral Temporomandibular joint disorders, unspecified Degeneration of cervical intervertebral disc Schatzki's ring documented as of this encounter (statuses as of 10/22/2023) Resolved Problems Problem Noted Date Diagnosed Date [...] for Patients with Cardiovascular Disease Project # [id number] PI: Selina Robert MD Please call [phone] with study related questions GENOMICS CARDIO RESEARCH OTHER*[id number] 08/15/2009 01/01/2017 Overview: Renamed Per Clinical Trials Billing Project. Study Titile: Genomics Markers for Patients with Cardiovascular Disease Project # [id number] PI: Selina Robert MD Please call [phone] with study related questions Abnormal electrocardiogram 07/20/2009 [...] as of this encounter (statuses as of 10/22/2023) Immunizations Name Administration Dates Next Due DTaP Dipth/Tet/Acell Pertussis (Infanrix), Peds 08/16/2021 Hepatitis B, 20+ yrs 12/14/2014,07/06/2014,05/17 Pneumococcal Conjugate Vacc, 13 Valent (Prevnar) 08/16/2017 Pneumococcal Conjugate Vacci ne, 20-valent ([id number]) 10/30/2022 Pneumococcal Polysaccharide PPV23 (Pneumovax) 07/17/2006 SEASONAL [...] on file documented as of this encounter Miscellaneous Notes * Telephone Encounter - Olivia Hilario OSA - 10/22/2023 12:23 PM EST Nuc stress needed per Laurie Romano. * Telephone Encounter - Laurie Romano PA-C - 10/22/2023 12:17 PM EST Discussed case with Dr. Thomas, recommend repeating nuclear stress test. Will also try addition of isosorbide mononitrate due to chest pain. Called patient to discuss, she voices understanding. Sonpresent during conversation who also confirmed plan. All questions answered. Please schedule nuclear stress test. documented in this encounter Plan of Treatment Upcoming Encounters Date Type Department Care Team (Late st Contact Info) Description 10/24/2023 7:00 AM EST Pharmacy Cardiology [place] [address] [place] [address] [facility] Cardiology [address] [place] [address] 01/08/2024 10:40 AM EST Office Visit Neurology Michelle [place] [place] [address] [place] [address] Jennifer Oviedo PA-C [address] [place] [address] Scheduled Orders Name Type Priority Associated Diagnoses Orde r Schedule NM MYOCARD PERF IMG SPECT MULT STUDIES WITH PHARM INTERV Cardiology Routine Chest pain, unspecified type Coronary artery disease involving curyung coronary artery of curyung heart with angina pectoris (HCC) S/P coronary artery stent placement Expected: 10/22/2023 (Approximate), Expires: 11/21/2024 Scheduled Procedures Name Priority Associated Diagnoses Date/Ti [...] this encounter Medical Devices Implanted Type Area Insurance Risk Analyst Device Identifier Shelf Expiration Date Model / Serial / Lot Nucleus [id number] Cochlear Implant With Contour Advance Electrode Implanted:Qty: 1 on 10/04/2015 by Tonny Joshua MD at OR [facility] Left: Ear [employer] 06/14/2017 [id number] / [id number] / Description:[id number] documented as of this encounter Visit Diagnoses Diagnosis Chest pain, unspecified type- Primary Coronary artery disease involving curyung coronary artery of curyung heart with angina pectoris (HCC) S/P coronary artery stent placement Postsurgical percutaneous transluminal coronary angioplasty status documented in this encounter Advance Directives Latest [...] the patient have Health Care Power of Cafeteria Director? No Care Teams Sketch Liner Relationship Specialty Start Date End Date Amairani Boyd MD [address] [place] [address] [place] [address] PCP - General Family Medicine 12/23/19 documented as of this encounter
--- OUTSIDE RECORDS SUMMARY | 2023-12-29 11:43 | External Medical Summary | Summary of Care ---
Author Name Unknown Organization [facility] Address [address] [place] [address] Phone [phone] Care Team Providers Care Fbi Investigator Name Role Phone Amairani Boyd MD Primary Care Prov ider Reason for Visit * Reason Comments Dosage Adjustment Via Phone (anticoag Cl inic) Hyperlipidemia Encounter Details Date Type Department Care Team (Late st Contact Info) Description 10/24/2023 7:00 AM [facility] Pharmacy Cardiology [address] [place] [address] [place], [facility] Cardiology [address] [facility] [place] [address] Dyslipidemia, goal LDL below 70* Allergies Active Allergy Reactions Criticality Noted Date Comments Atorvastatin Other (Please comment) 05/17/2014 Myalgias, dysarthria Prednisone Other (Please comment) 04/13/2013 Metabolic-hyperglycemia documented as of this encounter (statuses as of 10/24/2023) Medications Medication Sig Dispensed Refills Start Date [...] 2.5 MG Oral Tablet (Norvasc)Indication s:Atherosclerosis of [place] coronary artery of [place] heart without angina pectoris,HTN, goal below 140/90,S/P coronary artery stent placement TAKE ONE TABLET BY MOUTH EVERY DAY 90 Tablet 3 12/21/2022 12/21/2023 Active Glucose Blood In Vitro StripIndications:Ty pe 1 diabetes mellitus with hemoglobin A1c goal of 7.0%-8.0% ([facility]) USE TO TEST BLOOD SUGAR 4 TIMES DAILY 600 Strip 2 06/11/2023 Active NovoLOG FlexPen 100 UNIT/ML Subcutaneous Solution Pen-injectorIndicat ions:Type 1 diabetes mellitus with hemoglobin A1c goal of 7.0%-8.0% ([facility]) INJECT 6 UNITS UNDER THE SKIN PRIOR TO MEALS 30 mL 0 09/18/2023 Active BD Pen Needle Mini U/F 31G X 5 MM (Insulin Pen Needle)Indications: Type 1 diabetes mellitus with hemoglobin A1c goal of 7.0%-8.0% ([facility]) Use 4 times a day with [...] as of this encounter (statuses as of 10/24/2023) Active Problems Problem Noted Date Diagnosed Date Cochlear implant in place 09/06/2022 Aphasia, post-stroke 03/23/2022 Hemiplegia, post-stroke 03/23/2022 Receptive aphasia 02/15/2022 History of [place] (myocardial infarction) 12/15/2020 S/P coronary artery stent [...] Lipid Taxonomy. Coronary artery disease invo lving [place] coronary artery of [place] heart without angina pectoris 08/11/2009 Chronic otitis externa 06/02/2008 ADVANCE DIRECTIVE INFORMATION 04/22/2007 Overview: No, Advance Directive brochure given to patient at prior appointment. Meniere's disease of both ears Sensorineural hearing loss, bilateral Temporomandibular joint disorders, unspecified Degeneration of cervical intervertebral disc Schatzki's ring documented as of this encounter (statuses as of 10/24/2023) Resolved Problems Problem Noted Date Diagnosed Date [...] for Patients with Cardiovascular Disease Project # [id number] PI: Selina Robert MD Please call [phone] with study related questions GENOMICS CARDIO RESEARCH OTHER*[id number] 08/15/2009 01/01/2017 Overview: Renamed Per Clinical Trials Billing Project. Study Titile: Genomics Markers for Patients with Cardiovascular Disease Project # [id number] PI: Selina Robert MD Please call [phone] with study related questions Abnormal electrocardiogram 07/20/2009 [...] as of this encounter (statuses as of 10/24/2023) Immunizations Name Administration Dates Next Due DTaP Dipth/Tet/Acell Pertussis (Infanrix), Peds 08/16/2021 Hepatitis B, 20+ yrs 12/14/2014,07/06/2014,05/17 Pneumococcal Conjugate Vacc, 13 Valent (Prevnar) 08/16/2017 Pneumococcal Conjugate Vacci ne, 20-valent ([id number]) 10/30/2022 Pneumococcal Polysaccharide PPV23 (Pneumovax) 07/17/2006 SEASONAL [...] as of this encounter Progress Notes * Ai Crowley RPh - 10/24/2023 9:24 AM EST MTM HLD Update Contacts Type Contact Phone/Fax 10/24/2023 09:35 AM EST Phone (Outgoing) Shanda Chavez (Self) [phone] (M) Left Message 10/24/2023 09:36 AM EST Phone (Outgoing) Shanda Chavez (Self) [phone] (M) Spoke to Patient Pt needs updated lipid panel. Spoke with sister in law, she will let pt know. Labs Due: (ordered) Lipid panel 09/28/23 HbA1c due now Microalbumin due now Follow up: 4 weeks Ai Crowley Pharm D Clinical Pharmacist Cardiology 10/24/2023,9:35 AM documented in this encounter Plan of Treatment Upcoming Encounters Date Type Department Care Team (Late st Contact Info) Description 11/21/2023 7:00 AM EST Pharmacy Cardiology [address] [place] [address] Ben [facility] Cardiology [address] [place] [address] 12/31/2023 10:30 AM EST Imaging [facility] 2nd Floor Cardiology, [place] [address] [facility] [place] [address] Gw, Excess Time Radiology [address] [facility] [place] [address] 01/08/2024 10:40 AM EST Office Visit Neurology [facility] [address] [place] [address] Jennifer Oviedo PA-C [address] [place] [address] Scheduled Procedures Name Priority Associated Diagnoses Date/Ti [...] Additional history exists DXA Scan 02/04/2025 02/04/2023, 02/0 02/2020, 06/18/2017 DTaP,Tdap,and Td Vaccines (3 - [...] this encounter Medical Devices Implanted Type Area Building Trades Instructor Device Identifier Shelf Expiration Date Model / Serial / Lot Nucleus [id number] Cochlear Implant With Contour Advance Electrode Implanted:Qty: 1 on 10/04/2015 by Tonny Joshua MD at [facility] Left: Ear [employer] 06/14/2017 [id number] / [id number] / Description:[id number] documented as of this encounter Visit Diagnoses Diagnosis Dyslipidemia, goal LDL below 70- Primary Other and unspecified hyperlipidemia documented in this encounter Advance Directives Latest [...] the patient have Health Care Power of Underground Production Foreperson? No Care Teams Fbi Investigator Relationship Specialty Start Date End Date Amairani Boyd MD [address] [place] [address] [place] [id number] PCP - General Family Medicine 12/23/19 documented as of this encounter
--- OUTSIDE RECORDS SUMMARY | 2023-12-29 11:43 | External Medical Summary | Summary of Care ---
Author Name Unknown Organization [facility] Address [address] [place] [address] Phone [phone] Care Team Providers Care Disability Benefits Specialist Name Role Phone Amairani Boyd MD Primary Care Prov ider Reason for Visit * Reason Comments Dosage Adjustment Via Phone (anticoag Cl inic) Hyperlipidemia Encounter Details Date Type Department Care Team (Late st Contact Info) Description 11/21/2023 7:[address] [facility] Pharmacy Cardiology [address] [place] [address] [place], [facility] Cardiology [address] [facility] [place] [address] Dyslipidemia, goal LDL below 70* Allergies Active Allergy Reactions Criticality Noted Date Comments Atorvastatin Other (Please comment) 05/17/2014 Myalgias, dysarthria Prednisone Other (Please comment) 04/13/2013 Metabolic-hyperglycemia documented as of this encounter (statuses as of 11/21/2023) Medications Medication Sig Dispensed Refills Start Date [...] 2.5 MG Oral Tablet (Norvasc)Indication s:Atherosclerosis of [place] coronary artery of [place] heart without angina pectoris,HTN, goal below 140/90,S/P coronary artery stent placement TAKE ONE TABLET BY MOUTH EVERY DAY 90 Tablet 3 12/21/2022 12/21/2023 Active Glucose Blood In Vitro StripIndications:Ty pe 1 diabetes mellitus with hemoglobin A1c goal of 7.0%-8.0% ([facility] USE TO TEST BLOOD SUGAR 4 TIMES DAILY 600 Strip 2 06/11/2023 Active NovoLOG FlexPen 100 UNIT/ML Subcutaneous Solution Pen-injectorIndicat ions:Type 1 diabetes mellitus with hemoglobin A1c goal of 7.0%-8.0% ([facility]) INJECT 6 UNITS UNDER THE SKIN PRIOR TO MEALS 30 mL 0 09/18/2023 Active BD Pen Needle Mini U/F 31G X 5 MM (Insulin Pen Needle)Indications: Type 1 diabetes mellitus with hemoglobin A1c goal of 7.0%-8.0% ([facility]) Use 4 times a day with insulin [...] as of this encounter (statuses as of 11/21/2023) Active Problems Problem Noted Date Diagnosed Date [...] Lipid Taxonomy. Coronary artery disease invo lving [place] coronary artery of [place] heart without angina pectoris 08/11/2009 Chronic otitis externa 06/02/2008 ADVANCE DIRECTIVE INFORMATION 04/22/2007 Overview: No, Advance Directive brochure given to patient at prior appointment. Meniere's disease of both ears Sensorineural hearing loss, bilateral Temporomandibular joint disorders, unspecified Degeneration of cervical intervertebral disc Schatzki's ring documented as of this encounter (statuses as of 11/21/2023) Resolved Problems Problem Noted Date Diagnosed Date [...] for Patients with Cardiovascular Disease Project # [id number] PI: Selina Robert MD Please call [phone] with study related questions GENOMICS CARDIO RESEARCH OTHER*[id number] 08/15/2009 01/01/2017 Overview: Renamed Per Clinical Trials Billing Project. Study Titile: Genomics Markers for Patients with Cardiovascular Disease Project # [id number] PI: Selina Robert MD Please call [phone] with study related questions Abnormal electrocardiogram 07/20/2009 [...] as of this encounter (statuses as of 11/21/2023) Immunizations Name Administration Dates Next Due DTaP Dipth/Tet/Acell Pertussis (Infanrix), Peds 08/16/2021 Hepatitis B, 20+ yrs 12/14/2014,07/06/2014,05/17 Pneumococcal Conjugate Vacc, 13 Valent (Prevnar) 08/16/2017 Pneumococcal Conjugate Vacci ne, 20-valent ([id number]) 10/30/2022 Pneumococcal Polysaccharide PPV23 (Pneumovax) 07/17/2006 Seasonal Influenza, PF, 6 M & above, IM , (FluLaval or Fluzone) 08/16/2021,09/29/2020,09/04/2019,08/19,08/16/2017 Seasonal Influenza, Quadriva lent Hd (Fluzone [...] Progress Notes * Ai Crowley RPh - 11/21/2023 1:21 PM EST MTM HLD Update Pt needs updated lipid panel. myG sent Labs Due: (ordered) Lipid panel 09/28/23 HbA1c due now Microalbumin due now Follow up: 6 weeks Ai Crowley Pharm D Clinical Pharmacist Cardiology 11/21/2023,1:24 PM documented in this encounter Plan of Treatment Upcoming Encounters Date Type Department Care Team (Late st Contact Info) Description 12/31/2023 10:[address] [facility] 2nd Floor Cardiology, [place] [address] [place] [address] Gw, Excess Time Radiology [address] [place] [address] 01/01/2024 7:00 AM EST Pharmacy Cardiology [place] [address] [place] [address] Ben [facility] Cardiology [address] [place] [address] 01/08/2024 10:40 AM EST Office Visit Neurology Michelle Solitario [place] [address] [facility] [place] [address] Jennifer Oviedo PA-C [address] [facility] [place] [address] Scheduled Procedures Name Priority Associated Diagnoses Date/Ti [...] this encounter Medical Devices Implanted Type Area Gas Burner Operator Device Identifier Shelf Expiration Date Model / Serial / Lot Nucleus [id number] Cochlear Implant With Contour Advance Electrode Implanted:Qty: 1 on 10/04/2015 by Tonny Joshua MD at [facility] Left: Ear [employer] 06/14/2017 [id number] / [id number] / Description:[id number] documented as of this [...] the patient have Health Care Power of Movie Shot Camera Operator? No Care Teams Disability Benefits Specialist Relationship Specialty Start Date End Date Amairani Boyd MD [address] [place] [address] [place] [id number] PCP - General Family Medicine 12/23/19 documented as of this encounter
--- OUTSIDE RECORDS SUMMARY | 2023-12-29 11:43 | External Medical Summary | Summary of Care ---
Author Name Unknown Organization [facility] Address [address] [place] [address] Phone [phone] Care Team Providers Care Endorsement Clerk Name Role Phone Amairani Boyd MD Primary Care Prov ider Reason for Visit * Reason Comments Medication Discussion Encounter Details Date Type Department Care Team (Late st Contact Info) Description 10/25/2023 1:30 PM [facility] Pharmacy Pharmacy Call Center [phone] [place] [address] [place], [facility] [phone] [facility] [place] [address] Encounter for medication review* Allergies Active Allergy [...] 2.5 MG Oral Tablet (Norvasc)Indication s:Atherosclerosis of [place] coronary artery of [place] heart without angina pectoris,HTN, goal below 140/90,S/P coronary artery stent placement TAKE ONE TABLET BY MOUTH EVERY DAY 90 Tablet 3 12/21/2022 12/21/2023 Active Glucose Blood In Vitro StripIndications:Ty pe 1 diabetes mellitus with hemoglobin A1c goal of 7.0%-8.0% ([facility]) USE TO TEST BLOOD SUGAR 4 TIMES DAILY 600 Strip 2 06/11/2023 Active NovoLOG FlexPen 100 UNIT/ML Subcutaneous Solution Pen-injectorIndicat ions:Type 1 diabetes mellitus with hemoglobin A1c goal of 7.0%-8.0% ([facility]) INJECT 6 UNITS UNDER THE SKIN PRIOR TO MEALS 30 mL 0 09/18/2023 Active BD Pen Needle Mini U/F 31G X 5 MM (Insulin Pen Needle)Indications: Type 1 diabetes mellitus with hemoglobin A1c goal of 7.0%-8.0% ([facility]) Use 4 times a day with [...] post-stroke 03/23/2022 Receptive aphasia 02/15/2022 History of AL (myocardial infarction) 12/15/2020 S/P coronary artery stent [...] Lipid Taxonomy. Coronary artery disease invo lving [place] coronary artery of [place] heart without angina pectoris 08/11/2009 Chronic otitis [...] for Patients with Cardiovascular Disease Project # [id number] PI: Selina Robert MD Please call [phone] with study related questions GENOMICS CARDIO RESEARCH OTHER*[id number] 08/15/2009 01/01/2017 Overview: Renamed Per Clinical Trials Billing Project. Study Titile: Genomics Markers for Patients with Cardiovascular Disease Project # [id number] PI: Selina Robert MD Please call [phone] with study related questions Abnormal electrocardiogram 07/20/2009 [...] (Prevnar) 08/16/2017 Pneumococcal Conjugate Vacci ne, 20-valent ([id number]) 10/30/2022 Pneumococcal Polysaccharide PPV23 (Pneumovax) 07/17/2006 SEASONAL [...] this encounter Progress Notes * Merle Baltazar, [facility] - 10/25/2023 1:50 PM EST Images from the original note were not included. PHARMACY MTM PROGRESS NOTE [facility] [phone] [facility] [place] [address] Service Delivery Delivery Method: Phone Outcome: CMR [...] MOUTH EVERY DAY Associated Diagnoses: Atherosclerosis of [place] coronary artery of [place] heart without angina pectoris, HTN, goal below 140/90, S/P coronary artery stent placement ASPIRIN LOW DOSE 81 MG [facility] Patient, History Per Associated Diagnoses: -- BD Pen Needle Mini U/F 31G X 5 MM (Insulin Pen Needle) Amairani Boyd MD Use 4 times a day with insulin pens. DX e10.9 Associated Diagnoses: Type 1 diabetes mellitus with hemoglobin A1c goal of 7.0%- 8.0% ([facility]) Co Q-10 200 MG Oral Capsule Patient, History Per Associated Diagnoses: -- Evolocumab 140 MG/ML Subcutaneous Solution Auto-injector ([employer]) Sudhir Thoams DO Inject 140 mg under the skin every 14 days. Associated Diagnoses: Dyslipidemia, goal LDL below 70 Excedrin Migraine 250-250-65 MG Oral Tablet (Cucftpo-Dzrvbxxvfgqbk-Uqpugerh) Patient, History Per Associated Diagnoses: -- Glucose Blood In Vitro Strip Amairani Boyd MD USE TO TEST BLOOD SUGAR 4 TIMES DAILY Associated Diagnoses: Type 1 diabetes mellitus with hemoglobin A1c goal of 7.0%- 8.0% ([facility]) Insulin Glargine 100 UNIT/ML Subcutaneous Solution (Lantus) Patient, History Per Associated Diagnoses: -- Insulin Syringe-Needle U-100 30G X 1/2" 0.3 ML [facility] Grazyna Cotton MD Use up to 4 [...] with hemoglobin A1c goal of 7.0%- 8.0% ([facility]) TIPs None Action Plan 1. What type [...] service: Patient Was the patient in a [facility] care (LTC) facility when the CMR was completed? No Pharmacist's availability for questions: Saturday-Saturday 8:00am-4:30pm Takeaway Information Will the Patient Takeaway be sent to the Patient or someone else? Patient Language Template for the Patient Takeaway: Lao Additional notes for the Patient Takeaway (optional): n/a I attest that I have reviewed and updated the patient's conditions, allergies, and medications to the best of my ability. Patient Access: Is patient utilizing [facility]? Yes Is patient utilizing [employer]? Yes Additional Call Notes Adherence is unclear based on not being able to confirm some details with patient 30 min cmr Merle Baltazar RPh Clinical Pharmacist [facility]) 10/25/2023, 1:54 PM documented in this encounter Plan of Treatment Upcoming Encounters Date Type Department Care Team (Late st Contact Info) Description 11/21/2023 7:00 AM EST Pharmacy Cardiology [address] [place] [address] Ben [facility] Cardiology [address] [place] [address] 12/31/2023 10:30 AM EST Imaging [facility] 2nd Floor Cardiology, [place] [address] [facility] [place] [address] Gw, Excess Time Radiology [address] [facility] [place] [address] 01/08/2024 10:40 AM EST Office Visit Neurology [facility] [address] [facility] [place] [address] Jennifer Oviedo PA-C [address] [facility] [place] [address] Scheduled Procedures Name Priority Associated Diagnoses Date/Ti [...] this encounter Medical Devices Implanted Type Area Chemistry Associate Device Identifier Shelf Expiration Date Model / Serial / Lot Nucleus [id number] Cochlear Implant With Contour Advance Electrode Implanted:Qty: 1 on 10/04/2015 by Tonny Joshua MD at [facility] Left: Ear [employer] 06/14/2017 [id number] / [id number] / Description:[id number] documented as of this [...] the patient have Health Care Power of Vocational Rehabilitation Administrator? No Care Teams Endorsement Clerk Relationship Specialty Start Date End Date Amairani Boyd MD [address] [place] [address] [place] [address] PCP - General Family Medicine 12/23/19 documented as of this encounter
--- OUTSIDE RECORDS SUMMARY | 2023-12-29 11:43 | External Medical Summary | Summary of Care ---
Author Name Unknown Organization [facility] Address [address] [place] [address] Phone [phone] Care Team Providers Care Roll Up Helper Name Role Phone Amairani Boyd MD Primary Care Prov ider Reason for Visit * Reason Comments Follow Up Encounter Details Date Type Department Care Team (Late st Contact Info) Description 10/21/2023 10:00 AM EST Office Visit Cardiology, [facility] [address] [facility] [place] [id number] Laurie Romano PA-C [address] [place], [place] [address] [id number] Chest pain, unspecified type*; Coronary artery disease involving [place] coronary artery of [place] heart with angina pectoris (HCC); S/P coronary artery stent placement; HTN, goal below 140/90; Dyslipidemia, goal LDL below 70 Allergies Active Allergy Reactions Criticality Noted Date Comments Atorvastatin Other (Please comment) 05/17/2014 Myalgias, dysarthria Prednisone Other (Please comment) 04/13/2013 Metabolic-hyperglycemia documented as of this encounter (statuses as of 10/21/2023) Medications Medication Sig Dispensed Refills Start Date [...] Active Excedrin Migraine 250-250-65 MG Oral Tablet (Aspirin-Acetamino phen-Caffeine) Take 1 Tablet by mouth every 6 hours as needed. 0 Active Evolocumab 140 MG/ML Subcutaneous Solution Auto-injector (Repatha SureClick)Indicati ons:Dyslipidemia, goal LDL below 70 Inject 140 mg under the skin every 14 days. 6 mL 3 03/04/2023 Active Nitroglycerin 0.4 MG Sublingual Tablet Sublingual (Nitrostat) PLACE 1 TABLET UNDER THE TONGUE EVERY 5 MINUTES UP TO 3 DOSES NEEDED FOR CHEST PAIN. IF NO RELIEF CALL 911 OR GO TO ER 25 Tablet 11 02/25/2023 4 Active amLODIPine Besylate 2.5 MG Oral Tablet (Norvasc)Indicatio ns:Atherosclerosis of [place] coronary artery of [place] heart without angina pectoris,HTN, goal below 140/90,S/P coronary artery stent placement TAKE ONE TABLET BY MOUTH EVERY DAY 90 Tablet 3 12/21/2022 4 Active Glucose Blood In Vitro StripIndications:T ype 1 diabetes mellitus with hemoglobin A1c goal of 7.0%-8.0% ([facility]) USE TO TEST BLOOD SUGAR 4 TIMES DAILY 600 Strip 2 06/11/2023 Active NovoLOG FlexPen 100 UNIT/ML Subcutaneous Solution Pen-injectorIndica tions:Type 1 diabetes mellitus with hemoglobin A1c goal of 7.0%-8.0% ([facility]) INJECT 6 UNITS UNDER THE SKIN PRIOR TO MEALS 30 mL 0 09/18/2023 Active BD Pen Needle Mini U/F 31G X 5 MM (Insulin Pen Needle)Indications :Type 1 diabetes mellitus with hemoglobin A1c goal of 7.0%-8.0% ([facility]) Use 4 times a day with insulin pens. DX e10.9 400 Each 0 09/18/2023 Active Metoprolol Tartrate 50 MG Oral Tablet (Lopressor)Indicat ions:HTN, goal below 140/90 Take 1 Tablet by mouth 2 times a day. 0 10/21/2023 Active Bempedoic Acid 180 MG Oral TabletIndications: S/P coronary artery stent placement,Non-ST elevation (NSTEMI) myocardial infarction (HCC),Coronary artery disease involving [place] coronary artery of [place] heart without angina pectoris,Dyslipide alvarez, goal LDL below 70 TAKE 1 TABLET BY MOUTH DAILY 90 Tablet 3 03/01/2023 3 Discontinued Amoxicillin 500 MG Oral Tablet TAKE ONE CAPSULE BY MOUTH THREE TIMES A DAY 15 Tablet 0 01/03/2023 3 Discontinued Metoprolol Tartrate 50 MG Oral Tablet (Lopressor)Indicat ions:HTN, goal below 140/90 Take 1 Tablet by mouth 2 times a day. 180 Tablet 1 07/26/2023 3 Discontinued Lantus 100 UNIT/ML Subcutaneous Solution INJECT 16 UNITS UNDER THE SKIN AT BEDTIME 30 mL 3 09/03/2023 3 Discontinued documented as of this encounter (statuses as of 10/21/2023) Active Problems Problem Noted Date Diagnosed Date Cochlear implant in place 09/06/2022 Aphasia, post-stroke 03/23/2022 Hemiplegia, post-stroke 03/23/2022 Receptive aphasia 02/15/2022 History of [place] (myocardial infarction) 12/15/2020 S/P coronary artery stent [...] Lipid Taxonomy. Coronary artery disease invo lving [place] coronary artery of [place] heart without angina pectoris 08/11/2009 Chronic otitis externa 06/02/2008 ADVANCE DIRECTIVE INFORMATION 04/22/2007 Overview: No, Advance Directive brochure given to patient at prior appointment. Meniere's disease of both ears Sensorineural hearing loss, bilateral Temporomandibular joint disorders, unspecified Degeneration of cervical intervertebral disc Schatzki's ring documented as of this encounter (statuses as of 10/21/2023) Resolved Problems Problem Noted Date Diagnosed Date [...] for Patients with Cardiovascular Disease Project # [id number] PI: Selina Robert MD Please call [phone] with study related questions GENOMICS CARDIO RESEARCH OTHER*[id number] 08/15/2009 01/01/2017 Overview: Renamed Per Clinical Trials Billing Project. Study Titile: Genomics Markers for Patients with Cardiovascular Disease Project # [id number] PI: Selina Robert MD Please call [phone] with study related questions Abnormal electrocardiogram 07/20/2009 [...] as of this encounter (statuses as of 10/21/2023) Immunizations Name Administration Dates Next Due DTaP Dipth/Tet/Acell Pertussis (Infanrix), Peds 08/16/2021 Hepatitis B, 20+ yrs 12/14/2014,07/06/2014,05/17 Pneumococcal Conjugate Vacc, 13 Valent (Prevnar) 08/16/2017 Pneumococcal Conjugate Vacci ne, 20-valent ([id number]) 10/30/2022 Pneumococcal Polysaccharide PPV23 (Pneumovax) 07/17/2006 SEASONAL [...] on file documented as of this encounter Last Filed Vital Signs Vital Sign Reading Time Taken Comments Blood Pressure 124/80 10/21/2023 10:02 AM EST Pulse 130 10/21/2023 10:02 AM EST Temperature - - Respiratory Rate 24 10/21/2023 10:02 AM EST Oxygen Saturation - - Inhaled Oxygen Concentration - - Weight 52.2 kg (115 lb) 10/21/2023 10:02 AM EST Height - - Body Mass Index 21.03 10/03/2022 4:02 PM EST documented in this encounter Progress Notes * Laurie Romano PA-C - 10/21/2023 9:53 AM EST 10/21/2023 Cardiology Follow Up Primary Carpet Weaver: Dr. Thomas Cardiac Problem List: Coronary heart disease, non STEMI, prompting cardiac catheterization, drug- eluting stent to the proximal LAD, [facility], 05/16/2020, subtotal occlusion of the RPDA branch of the distal right coronary artery supplied with [id number]-gdmam collaterals, treated medically, not amenable to revascularization Intolerance of Brilinta prompting transition to clopidogrel Recurrent angina prompting nuclear stress test November,, with abnormal EKG response, symptoms of angina reproduced Repeat cardiac catheterization, [facility], 12/12/2020 with findings of patent LAD stent, distal RPDA stenosis once again observed with [id number] collaterals unchanged MELAS syndrome, (myopathy, encephalopathy, lactic acidosis and stroke) therefore not statin candidate EGD, 2015, Mild Schatzki ring. Dilated January 2022 with an acute left MCA infarction HPI: Shanda Chavez is a 68 year old female who presents for ED follow up. Last evaluated in cardiology clinic 01/[address] Thomas. Since last visit, she has presented to the ED at [facility] multiple times for chest pain. On 07/15/23 shepresented with chest discomfort. EKG on presentation without acute ST segment change, revealing normal sinus rhythm at 93 bpm with left axis deviation, voltage criteria for LVH, possible old anterolateral infarct. High- sensitivity troponin I was elevated at 26.3 initially then 31.0 followed by 30.7 pg/mL. Nuclear stress test with normal perfusion. Metoprolol increased to 50 mg BID. She was discharged to home. Presented again on 08/05/23 with chest pain where she reported numbness in her face after getting a injection of lidocaine at her dental procedure but also sensed left upper extremity numbness and tingling. She did not increase metoprolol as previously instructed. Chest pain resolved and she was discharged to home. Most recently, she presented on 10/04/23 with chest pain and shortness of breath. Discussed with cardiology, Dr. Thomas who recommended outpatient follow up. Presents today accompanied by sister in law. States she continues to have chest pain, that she describes as a sharp feeling that occurs only in the cold weather when she goes outside. Noticed it started once the weather got cold. Usually happens when she goes to the mailbox, pain is so bad she has to sit down, lasts for about 15 minutes. Does not occur every day, but most days. Feels fine when walking around the house. Has not changed in quality or severity since it started in June. Yesterdaytook a nitro which relieved the pain. Feels short of breath when this happens, denies wheezing, history of asthma. Denies palpitations, edema, PND, orthopnea, lightheadedness, syncope. She is frustrated as this has been going on and she has not had any answers. Compliant with all medications, although did not take them today before coming to clinic as she was in a hurry. Lives with son and grandson. REVIEW OF SYSTEMS: See HPI for pertinent positives. All others negative other than those noted in the HPI. CONSTITUTIONAL: No change in weight, No weakness, No fatigue and No fevers, No sweats or chills. PULMONARY: No cough, sputum, or hemoptysis, No wheezing, No shortness of breath and No recent change in breathing. CARDIOVASCULAR: + chest pain, + dyspnea on exertion, No edema, No palpitations and No syncope. GASTROINTESTINAL: No abdominal pain, No change in bowel habits, No significant heartburn, No nausea, No vomiting, No diarrhea, No constipation, No blood in stools or black tarry stools. No dysphagia. HEMATOLOGIC: No abnormal bleeding and No bruising. NEUROLOGICAL: Normal balance, No headaches and No weakness. Review of patient's allergies indicates: Allergen Reactions Atorvastatin Other (Please comment) Myalgias, dysarthria Prednisone Other (Please comment) Metabolic-hyperglycemia Current Outpatient Medications Medication Sig Dispense Refill Insulin Syringe-Needle U-100 30G X 1/2" 0.3 ML MISC Use up to 4 times a day with insulin 1 Box Dosing Unit 11 ASPIRIN LOW DOSE 81 MG TBEC Take 1 Tablet by mouth in the morning. In the morning.. Lipotriad Vision Support Oral Capsule Take by mouth once . Co Q-10 200 MG Oral Capsule Take by mouth . Excedrin Migraine 250-250-65 MG Oral Tablet (Iswtcpd-Zyaikclpvaudn-Euxwgftw) Take 1 Tablet by mouthevery 6 hours as needed. Evolocumab 140 MG/ML Subcutaneous Solution Auto-injector (Repatha SureClick) Inject 140 mg under the skin every 14 days. 6 mL 3 Nitroglycerin 0.4 MG Sublingual Tablet Sublingual (Nitrostat) PLACE 1 TABLET UNDER THE TONGUE EVERY5 MINUTES UP TO 3 DOSES NEEDED FOR CHEST PAIN. IF NO RELIEF CALL 911 OR GO TO ER 25 Tablet 11 amLODIPine Besylate 2.5 MG Oral Tablet (Norvasc) TAKE ONE TABLET BY MOUTH EVERY DAY 90 Tablet 3 Glucose Blood In Vitro Strip USE TO TEST BLOOD SUGAR 4 TIMES DAILY 600 Strip 2 NovoLOG FlexPen 100 UNIT/ML Subcutaneous Solution Pen-injector INJECT 6 UNITS UNDER THE SKIN PRIOR TO MEALS 30 mL 0 BD Pen Needle Mini U/F 31G X 5 MM (Insulin Pen Needle) Use 4 times a day with insulin pens. DX e10.9 400 Each 0 Metoprolol Tartrate 50 MG Oral Tablet (Lopressor) Take 1 Tablet by mouth 2 times a day. No current facility-administered medications for this visit. Past Medical History: Diagnosis Date Abnormal electrocardiogram 07/20/2009 Acute DM type 1 causing complication (HCC) Acute ischemic left middle cerebral artery (MCA) stroke (HCC) 02/15/2022 Allergic rhinitis Bloom's esophagus 12/21/2014 repeat EGD 3 yrs Benign neoplasm of colon 04/12/08 adenomatous; repeat colonoscopy in 5 yrs Bilateral myopia 08/15/2012 Cerebrovascular event, ill-defined, within last 8 weeks Combined forms of age-related cataract, bilateral 11/10/2018 Degeneration of cervical intervertebral disc DM type 1, goal A1C 7-8 Dysfunction of eustachian tube intermittent Dyslipidemia, goal LDL below 100 12/07/2011 Dyslipidemia, goal to be determined HTN, goal below 140/90 Hyperkalemia 04/09/2012 Ill-defined cerebrovascular disease microvascular Macular degeneration MELAS (myopathy, encephalopathy, lactic acidosis and stroke) ([facility]) MELAS syndrome (HCC) Meniere's disease Non-ST elevation (NSTEMI) myocardial infarction ([facility]) 05/23/2020 Other acute otitis externa Other specified forms of hearing loss Presbyopia 08/03/2013 Regular astigmatism, bilateral 08/03/2013 Dr.Trego Mayer's ring Sensorineural hearing loss, bilateral Statins contraindicated 04/19/2017 Temporomandibular joint disorders, unspecified TIA (transient ischemic attack) 07/20/2009 Unspecified hereditary retinal dystrophy 09/20/2014 Family History Problem Relation Age of Onset Other (Other) Daughter MELAS Syndrome Heart Disorder Mother CAD onset in 70's Heart Disorder Father CAD onset in 50's Diabetes Father Diabetes Brother Retinal detachment Son Cancer Grandmother (Paternal) Social History Socioeconomic History Marital status: Spouse name: Ernesto Number of children: 2 Tobacco Use Smoking status: Former Smokeless tobacco: Never Tobacco comments: quit 1991- smoked off and on since age 21 Vaping Use Vaping Use: Never used Substance and Sexual Activity Alcohol use: No Drug use: No Sexual activity: Yes Partners: Male Comment: Ernesto Social History Narrative ; 2 children; at home Social Determinants of Health Food Insecurity: Unknown (03/01/2023) Hunger Vital Sign Worried About Running Out of Food in the Last Year: Patient refused Ran Out of Food in the Last Year: Patient refused OBJECTIVE/PHYSICAL EXAMINATION: BP 124/80 | Pulse 130 | Resp 24 | Wt 52.2 kg (115 lb) | LMP 12/02/2000 | BMI 21.03 kg/m | BSA 1.51 m General: No acute distress. A+Ox3. HEENT: Normocephalic. Atraumatic. PERRL. EOMI. Conjunctiva and sclera clear. NECK: No carotid bruits. No JVD. Carotid upstrokes are brisk. Heart: Tachycardic. S1 and S2 noted. No murmur. No rubs or gallops. PMI non displaced. Lungs: Clear to auscultation. No wheezes. No rhonchi. No rales. Abdomen: Normal bowel sounds. Soft. Nontender. No masses or organomegaly. No abdominal bruits. Extremities: No edema. No clubbing or cyanosis. Pulses: radial=2/4, posterior tibial=2/4, dorsalis pedis = 2/4. NEURO: No focal deficits. PSYCH: Appropriate affect and insight. DATA Labs & Imaging Reviewed Below: EKG 10/21/23 Sinus tachycardia, 126 bpm, T wave inversion in lateral leads that is present in prior EKG from [facility] Nuclear Stress Test 07/16/23 ([facility]) Normal Lexiscan nuclear stress test. No evidence of ischemia or scar. Normal left ventricular systolic function. Cardiac Catheterization 12/12/20 Coronary angiogram shows no new lesions to explain the patient's atypical chest smptoms. The proximal LAD stent is patent. There is a subtotal occlusion of rPDA with left to right collaterals. Mild disease in CX. Nuclear Stress Test 11/29/20 Abnormal low intensity exercise/Lexiscan myocardial perfusion imaging stress test. The post stress and resting perfusion images were normal. The patient however developed symptoms reminiscent of her previous angina, with noted mild ischemicEKG changes, and therefore the test is felt to likely represent underlying hemodynamically significant coronary heart disease. Echo 11/29/20 The examination is adequate to evaluate the referral indication. The LV wall thickness is mildly increased (concentric). The left ventricular systolic function is normal. Qualitative LV ejection Fraction = 55%. Mild aortic valve regurgitation is present. Mild mitral regurgitation is present. ASSESSMENT/PLAN: 68 year old year old female 1. Chest pain, unspecified type 2. Coronary artery disease involving [place] coronary artery of [place] heart with angina pectoris (HCC) 3. S/P coronary artery stent placement - patient with chest pain with exertion that has been present for about 3-4 months, has been to ED several times for workup, including nuclear stress test that was negative for ischemia. - Difficult at times to fully describe episodes with patient due to history of stroke and hearing impairment, but states it has not changed since June when the stress test was performed. Known subtotal occlusion of the RPDA branch of the distal right coronary artery supplied with mezb-uo-taxaq collaterals. - possible ischemia vs vasospasm vs underlying lung disorder, symptoms stable - will review case with primary legislative assistant, Dr. Thomas, for further recommendations as patient is well known to him - tachycardic on exam, patient states she did not take any medications today, advised to take immediately when home and monitor heart rate - continue aspirin 4. HTN, goal below 140/90 - controlled - continue amlodipine 5. Dyslipidemia, goal LDL below 70 - last LDL 91 - continue Repatha - follows with [facility] DISPOSITION: Follow up 1 month or sooner if symptoms worsen/fail to improve. All questions were answered to the patients satisfaction. Patient advised to report to ED with any and all emergencies. The patient agrees to the above plan and will call with additional questions or concerns. Laurie Romano PA-C Cardiology, [address] [place] [address] I spent a total of 50 minutes on the date of service in preparation, delivery, and documentation ofthe care provided to Shanda Chavez excluding any time spent in the performance of separately billed services. This chart was completed in part utilizing [employer] Speech Voice Recognition Software. Grammatical errors, random word insertions, pronoun errors, and incomplete sentences are an occasional consequence of this system due to software limitations, ambient noise, and hardware issues. Any formal questions or concerns about the content, text, or information contained within the body of this dictation should be directly addressed to the provider for clarification. documented in this encounter Procedure Notes * Aiden Cabral MD - 10/21/2023 10:12 AM ESTAssociated Order(s): EKG REASON FOR STUDY: routine CONCLUSIONS: Sinus tachycardia Right atrial enlargement Left axis deviation Anteroseptal infarct (cited on or before 15-APR-2017) T wave abnormality, consider lateral ischemia Abnormal ECG When compared with ECG of 05-DEC-2020 10:25, Heart rate is 62 beats per minute higher, sinus tachycardia present Ventricular Rate: 126 Atrial Rate: 126 SD Interval: 130 QRS Duration: 86 QT/QTc: 314/454 ms P-R-T [place]: 79 : -54 : 111 degrees documented in this encounter Nursing Notes * Snehal Mead LPN - 10/21/2023 10:01 AM EST Examination Room: 1 Name: Shanda Chavez Date of : 1955 Reason for Visit: Follow up Problems/Concerns: Hospital follow up for sob, cp. Pt says occurs with cold weather, NTG helps to resolve symptoms Interim Hosp(s): 11/10/23 cp/sob Chest Pain/SOB: denies MyChart Discussed: ALREADY ACTIVE Patient was instructed to not get up on the exam table until directed and assisted by their provider; patient is to remain seated in the chair/ wheelchair/ exam table for fall prevention and safety reasons. Patient is aware to have assistance to step down off exam table with personnel. documented in this encounter Plan of Treatment Upcoming Encounters Date Type Department Care Team (Late st Contact Info) Description 10/24/2023 7:00 AM EST Pharmacy Cardiology [address] [place] [address] [facility] [address] [place] [address] 01/08/2024 10:40 AM EST Office Visit Neurology [facility] [place] [facility] [place] [address] Jennifer Oviedo PA-C [address] [facility] [place] [address] Scheduled Procedures Name Priority Associated Diagnoses Date/Ti [...] this encounter Medical Devices Implanted Type Area Cloud Engineer Device Identifier Shelf Expiration Date Model / Serial / Lot Nucleus [id number] Cochlear Implant With Contour Advance Electrode Implanted:Qty: 1 on 10/04/2015 by Tonny Joshua MD at OR [facility] Left: Ear [facility] 06/14/2017 [id number] / [id number] / Description:[id number] documented as of this encounter Procedures Procedure Name Priority Date/Time Associated Diagnosis Comments SD ECG ROUTINE ECG W/LEAST 12 LDS W/I&R Routine 10/21/2023 10:12 AM EST Chest pain, unspecified type HTN, goal below 140/90 Coronary artery disease involving [place] coronary artery of [place] heart with angina pectoris (HCC) S/P coronary artery stent placement documented in this encounter Results * EKG (10/21/2023 10:12 AM EST) 10/21/2023 10:1 2 AM EST Narrative Procedure Note Aiden Cabral MD - 10/21/2023 10:12 AM EST REASON FOR STUDY: routine CONCLUSIONS: Sinus tachycardia Right atrial enlargement Left axis deviation Anteroseptal infarct (cited on or before 15-APR-2017) T wave abnormality, consider lateral ischemia Abnormal ECG When compared with ECG of 05-DEC-2020 10:25, Heart rate is 62 beats per minute higher, sinus tachycardia present Ventricular Rate: 126 Atrial Rate: 126 SD Interval: 130 QRS Duration: 86 QT/QTc: 314/454 ms P-R-T [place]: 79 : -54 : 111 degrees Laurie Romano PA-C EKG [facility] CARDIOLOGY documented in this encounter Visit Diagnoses Diagnosis Chest pain, unspecified type- Primary Coronary artery disease involving [place] coronary artery of [place] heart with angina pectoris (HCC) S/P coronary artery stent placement Postsurgical percutaneous transluminal coronary angioplasty status HTN, goal below 140/90 Unspecified essential hypertension Dyslipidemia, goal LDL below 70 Other and unspecified hyperlipidemia documented in this [...] the patient have Health Care Power of Physical Optics Teacher? No Care Teams Roll Up Helper Relationship Specialty Start Date End Date Amairani Boyd MD [address] [place] [address] [place] [address] PCP - General Family Medicine 12/23/19 documented as of this encounter
--- OUTSIDE RECORDS SUMMARY | 2023-12-29 11:44 | External Medical Summary | Summary of Care ---
Author Name Unknown Organization [facility] Address [address] [place] [address] Phone [phone] Care Team Providers Care Crane Service Technician Name Role Phone Amairani Boyd MD Primary Care Prov ider Reason for Visit * Reason Onset Date Comments Information 10/03/2023 Encounter Details Date Type Department Care Team (Late st Contact Info) Description 10/03/2023 Telephone Cardiology, [facility] [address] [place] [address] Sudhir Thomas, [address] [place] [address] Information Allergies Active Allergy Reactions Criticality Noted Date Comments Atorvastatin Other (Please comment) 05/17/2014 Myalgias, dysarthria Prednisone Other (Please comment) 04/13/2013 Metabolic-hyperglycemia documented as of this encounter (statuses as of 10/04/2023) Medications Medication Sig Dispensed Refills Start Date [...] 14 days. 6 mL 3 03/04/2023 Active Bempedoic Acid 180 MG Oral TabletIndications: S/P coronary artery stent placement,Non-ST elevation (NSTEMI) myocardial infarction (HCC),Coronary artery disease involving [place] coronary artery of [place] heart without angina pectoris,Dyslipide alvarez, goal LDL below 70 TAKE 1 TABLET BY MOUTH DAILY 90 Tablet 3 03/01/2023 4 Active Nitroglycerin 0.4 MG Sublingual Tablet Sublingual (Nitrostat) PLACE 1 TABLET UNDER THE TONGUE EVERY 5 MINUTES UP TO 3 DOSES NEEDED FOR CHEST PAIN. IF NO RELIEF CALL 911 OR GO TO ER 25 Tablet 11 02/25/2023 4 Active Amoxicillin 500 MG Oral Tablet TAKE ONE CAPSULE BY MOUTH THREE TIMES A DAY 15 Tablet 0 01/03/2023 4 Active Additional Information Patient not taking.Reported on 07/23/2023 amLODIPine Besylate 2.5 MG Oral Tablet (Norvasc)Indicatio ns:Atherosclerosis of [place] coronary artery of [place] heart without angina pectoris,HTN, goal below 140/90,S/P coronary artery stent placement TAKE ONE TABLET BY MOUTH EVERY DAY 90 Tablet 3 12/21/2022 4 Active Glucose Blood In Vitro StripIndications:T ype 1 diabetes mellitus with hemoglobin A1c goal of 7.0%-8.0% ([facility]) USE TO TEST BLOOD SUGAR 4 TIMES DAILY 600 Strip 2 06/11/2023 Active Metoprolol Tartrate 50 MG Oral Tablet (Lopressor)Indicat ions:HTN, goal below 140/90 Take 1 Tablet by mouth 2 times a day. 180 Tablet 1 07/26/2023 Active Lantus 100 UNIT/ML Subcutaneous Solution INJECT 16 UNITS UNDER THE SKIN AT BEDTIME 30 mL 3 09/03/2023 4 Active NovoLOG FlexPen 100 UNIT/ML Subcutaneous Solution Pen-injectorIndica tions:Type 1 diabetes mellitus with hemoglobin A1c goal of 7.0%-8.0% (HCC) INJECT 6 UNITS UNDER THE SKIN PRIOR TO MEALS 30 mL 0 09/18/2023 Active BD Pen Needle Mini U/F 31G X 5 MM (Insulin Pen Needle)Indications :Type 1 diabetes mellitus with hemoglobin A1c goal of 7.0%-8.0% (HCC) Use 4 times a day with insulin pens. DX e10.9 400 Each 0 09/18/2023 Active documented as of this encounter (statuses as of 10/04/2023) Active Problems Problem Noted Date Diagnosed Date Cochlear implant in place 09/06/2022 Aphasia, post-stroke 03/23/2022 Hemiplegia, post-stroke 03/23/2022 Receptive aphasia 02/15/[address] (myocardial infarction) 12/15/2020 S/P coronary artery stent [...] Lipid Taxonomy. Coronary artery disease invo lving [place] coronary artery of [place] heart without angina pectoris 08/11/2009 Chronic otitis externa 06/02/2008 ADVANCE DIRECTIVE INFORMATION 04/22/2007 Overview: No, Advance Directive brochure given to patient at prior appointment. Meniere's disease of both ears Sensorineural hearing loss, bilateral Temporomandibular joint disorders, unspecified Degeneration of cervical intervertebral disc Schatzki's ring documented as of this encounter (statuses as of 10/04/2023) Resolved Problems Problem Noted Date Diagnosed Date [...] for Patients with Cardiovascular Disease Project # [id number] PI: Selina Robert MD Please call [phone] with study related questions GENOMICS CARDIO RESEARCH OTHER*[id number] 08/15/2009 01/01/2017 Overview: Renamed Per Clinical Trials Billing Project. Study Titile: Genomics Markers for Patients with Cardiovascular Disease Project # PI: Selina Robert MD Please call [phone] with study related questions Abnormal electrocardiogram 07/20/2009 [...] as of this encounter (statuses as of 10/04/2023) Immunizations Name Administration Dates Next Due DTaP Dipth/Tet/Acell Pertussis (Infanrix), Peds 08/16/2021 Hepatitis B, 20+ yrs 12/14/2014,07/06/2014,05/17 Pneumococcal Conjugate Vacc, 13 Valent (Prevnar) 08/16/2017 Pneumococcal Conjugate Vacci ne, 20-valent ([id number]) 10/30/2022 Pneumococcal Polysaccharide PPV23 (Pneumovax) 07/17/2006 SEASONAL [...] Telephone Encounter - Olivia Hilario OSA - 10/04/2023 3:36 PM EST Spoke with Pt's son, appt scheduled with Quynh Janes on 10/09. * Telephone Encounter - Sudhir Thomas DO - 10/04/2023 3:31 PM EST Cardiology scheduling, please help schedule post emergency department follow-up in the next 1 to 3 weeks with the undersigned Michael Marrero, or other provider. Sudhir Thomas DO * Telephone Encounter - Sudhir Thomas DO - 10/04/2023 3:26 PM EST Patient presented to the emergency department at [place] today. Case discussed with Dr. Fowler of Emergency Medicine. Lab work reviewed. Patient with mild elevation in troponin, unchanged compared to previous admission including that which she saw the undersigned in April. She is had 2 measurements thus far with a flat trend. Her EKG reveals stable findings of sinus rhythm, T-wave inversions noted in the high lateral leads I and aVL that he had been chronic since April,. Blood pressure relatively well-controlled. Patient deemed stable for discharge from the emergency department. Plan: Continue current medications. It was noted that at the time of Lexiscan stress test performed November, the patient had chestsymptoms reminiscent of her previous angina, and equivocal EKG changes. Perfusion images were normal. This was followed with the cardiac catheterization performed in November, with no new lesionsto explain her symptoms. 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 Sudhir Thomas DO * Telephone Encounter - Snehal Mead LPN - 10/03/2023 11:26 AM EST Two times this week pt outside walking & going up steps to get back into the house, each time having "a lot" of chest pain, tight. Whole chest, "hot pain." Resolves after sitting for 5-10 minutes. Denies chest pain while on phone, no SOB while on the phone. SOB Yes, having sob, with chest pain, resolves once cp resolves. Weight gain unsure Edema: swelling in arms Abdominal distention No Lack of appetite Yes Recent home weights: unsure Exacerbating factors: Has the patient missed any medications? No Has there been a change in medications? No Has there been any recent steroid use? No Has there been any dietary indiscretions? No Patient is currently taking: Advised pt to go to ER per provider. Pt verbalized understanding of need to be checked out. Pt said she doesn't have a ride, wanted to wait until tomorrow morning. Advised pt to go today. Advised pt if chest pain returns she must go to ER. documented in this encounter Plan of Treatment Upcoming Encounters Date Type Department Care Team (Late st Contact Info) Description 10/09/2023 10:20 AM EST Office Visit Family Medicine [address] [place] [address] Amairani Boyd MD [address] [place] [address] [place] [address] 10/09/2023 3:00 PM EST [facility] [place] [address] Quynh Marrero PA-C [address] [place] [address] 10/10/2023 7:00 AM EST Pharmacy Cardiology [facility] Giovanni [address] [place] [address] [facility] Card[facility] [address] [place] [address] [place] [address] 01/08/2024 10:40 AM EST Office Visit Neurology [facility] [place] [address] [facility] [place] [address] Jennifer Oviedo PA-C [address] [facility] [place] [address] Scheduled Procedures Name Priority Associated Diagnoses Date/Ti [...] this encounter Medical Devices Implanted Type Area Computer Technical Specialist Device Identifier Shelf Expiration Date Model / Serial / Lot Nucleus [id number] Cochlear Implant With Contour Advance Electrode Implanted:Qty: 1 on 10/04/2015 by Tonny Joshua MD at OR [facility] Left: Ear [employer] 06/14/2017 [id number] / [id number] / Description:[id number] documented as of this encounter Visit Diagnoses Diagnosis Chest pain, unspecified type- Primary documented in this encounter Advance Directives Latest [...] the patient have Health Care Power of Chip Person? No Care Teams Crane Service Technician Relationship Specialty Start Date End Date Amairani Boyd MD [address] [place] [address] [place] [phone] PCP - General Family Medicine 12/23/19 documented as of this encounter
--- OUTSIDE RECORDS SUMMARY | 2023-12-29 11:44 | External Medical Summary | Summary of Care ---
Author Name Unknown Organization [facility] Address [address] [place] [address] Phone [phone] Care Team Providers Care Staff Nurse Midwife Name Role Phone Amairani Byod MD Primary Care Prov ider Reason for Visit * Reason Comments Dosage Adjustment Via Phone (anticoag Cl inic) Hyperlipidemia Encounter Details Date Type Department Care Team (Late st Contact Info) Description 10/10/2023 7:00 AM [facility] Pharmacy Cardiology [address] [place] [address] [place], [facility] Cardiology [address] [facility] [place] [address] Dyslipidemia, goal LDL below 70* Allergies Active Allergy Reactions Criticality Noted Date Comments Atorvastatin Other (Please comment) 05/17/2014 Myalgias, dysarthria Prednisone Other (Please comment) 04/13/2013 Metabolic-hyperglycemia documented as of this encounter (statuses as of 10/11/2023) Medications Medication Sig Dispensed Refills Start Date [...] (NSTEMI) myocardial infarction (HCC),Coronary artery disease involving [place] coronary artery of [place] heart without angina pectoris,Dyslipide alvarez, goal LDL [...] 2.5 MG Oral Tablet (Norvasc)Indicatio ns:Atherosclerosis of [place] coronary artery of [place] heart without angina pectoris,HTN, goal below 140/90,S/P coronary artery stent placement TAKE ONE TABLET BY MOUTH EVERY DAY 90 Tablet 3 12/21/2022 4 Active Glucose Blood In Vitro StripIndications:T ype 1 diabetes mellitus with hemoglobin A1c goal of 7.0%-8.0% ([facility]) USE TO TEST BLOOD SUGAR 4 [...] as of this encounter (statuses as of 10/11/2023) Active Problems Problem Noted Date Diagnosed Date Cochlear implant in place 09/06/2022 Aphasia, post-stroke 03/23/2022 Hemiplegia, post-stroke 03/23/2022 Receptive aphasia 02/15/2022 History of [place] (myocardial infarction) 12/15/2020 S/P coronary artery stent [...] Lipid Taxonomy. Coronary artery disease invo lving [place] coronary artery of [place] heart without angina pectoris 08/11/2009 Chronic otitis externa 06/02/2008 ADVANCE DIRECTIVE INFORMATION 04/22/2007 Overview: No, Advance Directive brochure given to patient at prior appointment. Meniere's disease of both ears Sensorineural hearing loss, bilateral Temporomandibular joint disorders, unspecified Degeneration of cervical intervertebral disc Schatzki's ring documented as of this encounter (statuses as of 10/11/2023) Resolved Problems Problem Noted Date Diagnosed Date [...] for Patients with Cardiovascular Disease Project # [id number] PI: Selina Robert MD Please call [phone] with study related questions GENOMICS CARDIO RESEARCH OTHER*[id number] 08/15/2009 01/01/2017 Overview: Renamed Per Clinical Trials Billing Project. Study Titile: Genomics Markers for Patients with Cardiovascular Disease Project # [id number] PI: Selina Robert MD Please call [phone] with study related questions Abnormal electrocardiogram 07/20/2009 [...] as of this encounter (statuses as of 10/11/2023) Immunizations Name Administration Dates Next Due DTaP Dipth/Tet/Acell Pertussis (Infanrix), Peds 08/16/2021 Hepatitis B, 20+ yrs 12/14/2014,07/06/2014,05/17 Pneumococcal Conjugate Vacc, 13 Valent (Prevnar) 08/16/2017 Pneumococcal Conjugate Vacci ne, 20-valent ([id number]) 10/30/2022 Pneumococcal Polysaccharide PPV23 (Pneumovax) 07/17/2006 SEASONAL [...] of this encounter Progress Notes * Ai Crowley, [facility] - 10/11/2023 3:13 PM EST [facility]LD Update Last lipid panel June 2023 LDL increased. Pt non complaint with medications, restated at that visit. Due for updated lipid panel. Pt was supposed to have labs 10/09, no completed. Myg sent to patient to see if she wants mobile phleb Labs Due: (ordered) Lipid panel 09/28/23 HbA1c due now Microalbumin due now Follow up: 2 weeks Ai Crowley Pharm D Clinical Pharmacist Cardiology 10/11/2023,3:15 PM documented in this encounter Plan of Treatment Upcoming Encounters Date Type Department Care Team (Late st Contact Info) Description 10/21/2023 10:00 AM EST [facility] [address] [place] [address] Laurie Romano PA-C [address] [place] [address] 10/24/2023 7:00 AM EST Pharmacy Cardiology [place] Kate [address] [place] [address] [facility] Cardiology [address] [place] [address] 01/08/2024 10:40 AM EST Office Visit Neurology [facility] [address] [facility] [place] [address] Jennifer Oviedo PA-C [address] [facility] [place] [address] Scheduled Procedures Name Priority Associated Diagnoses Date/Ti [...] this encounter Medical Devices Implanted Type Area 8Th Grade Mathematics Teacher Device Identifier Shelf Expiration Date Model / Serial / Lot Nucleus [id number] Cochlear Implant With Contour Advance Electrode Implanted:Qty: 1 on 10/04/2015 by Tonny Joshua MD at [place] [facility] Left: Ear [employer] [facility] 06/14/2017 [id number] / [id number] / Description:[id number] documented as of this [...] the patient have Health Care Power of Public Health Educator? No Care Teams Staff Nurse Midwife Relationship Specialty Start Date End Date Amairani Boyd MD [address] [place] [address] [place] [phone] PCP - General Family Medicine 12/23/19 documented as of this encounter
--- NOTE | 2023-12-29 11:54 | Emergency Department Note ---
Impression & Plan Acute exacerbation of CHF (congestive heart failure), Acute dyspnea, Hypomagnesemia, Leg swelling ED Provider Note NAME: WINNIE DONG AGE: 68 SEX: F : 1955 ARRIVES VIA: Walk-In INFORMANT: Patient, ED PROVIDER(S): Roland Fowler MD CHIEF COMPLAINT: Leg swelling MEDICAL DECISION MAKING: Patient presents due to concern for worsening swelling of the bilateral lower extremities as well as abdomen. IV was established and blood work was obtained along with a chest x-ray EKG BNP. Patient's blood work shows a normal white count H&H and platelet count. The patient's kidney function prerenal azotemia slightly low bicarb and elevated anion gap. Hypomagnesemia noted with transaminitis elevated troponin to 120 and BNP of 1400. Urinalysis does not show evidence of obvious infection. Chest x- ray shows cardiomegaly with pleural effusions. The patient did have crackles throughout does have an exam consistent with volume overload. The patient was ordered IV Lasix. Patient was ordered magnesium p.o. for replete meant. Patient's transaminitis could be secondary to liver congestion from volume overload. The patient may have not been taking her medications at all regular basis and from the history he likely was taking the nitro inappropriately which may also be contributory. I did speak the on-call hospital service Dr. Murcia and the patient was admitted to the medicine service. Of note the patient did complain of bruising to the abdomen. The patient does self administer insulin did have several small areas of bruising which certainly could be related to insulin administration. The patient does not have any pain to palpation over the abdomen Discussion w/ other healthcare providers: Dr. Murcia inpatient medicine service Prior /Outside records reviewed: I reviewed a discharge summary from Dr. Pereira from July 16, 2023. Patient has a known history of type I diabetic hyperlipidemia CAD status post stents hypertension history of hemiplegia and aphasia from prior stroke with persistent aphasia presented due to concern for shortness of breath at that time. Patient did have an echo at that time which showed an EF of 55 to 60% without regional wall motion abnormality. Stress test was negative for inducible ischemia and the patient's metoprolol was increased to 50 mg twice daily. Differential diagnosis: Reactive airway disease, pneumonia, pneumothorax, COPD, CHF, ACS, pulmonary embolism, musculoskeletal, GERD as well as other pathologies were considered. Diagnostics, as interpreted by me: ECG: Sinus tachycardia, rate 117, normal intervals, left axis deviation no ST elevations. Q waves noted Cardiac monitoring: An order was placed for continuous cardiac monitoring. The monitor shows a rate of 112 with tachycardic and rhythm. Patient was placed on pulse oximetry Medical decision rules: None Imaging studies: I informally interpreted the patient's chest x-ray which does show pleural effusion with formal report to follow. HPI: Patient presents due to concern for worsening swelling. The patient reportedly has been ill for about 10 days. Son does provide some additional history as the patient does suffer from chronic aphasia. Patient's son states that she is currently at her neurologic baseline and typically ambulates without assistance. Patient denies any falls or trauma. Son reports that the patient has been taking nitro to help her sleep at night. He is unsure as to how many she is taking in and over what timeframe but states that typically she is compliant with her medications and does not have any issues with taking them. Patient reportedly has not had chest pain. Patient does complain of some dyspnea and orthopnea PAST MEDICAL HISTORY: See Below PAST SURGICAL HISTORY: See Below SOCIAL HISTORY: See Below HOME MEDICATIONS: See Below ALLERGIES: See Below VITALS: See Below PHYSICAL EXAMINATION: GENERAL: NAD, non-toxic. Wearing glasses. EYE EXAM: Normal conjunctiva. PERRL, no anisocoria and EOM's grossly intact w/o pain. OROPHARYNX: Moist mucus membranes, grossly normal dentition. NECK: Trachea midline, no stridor. Supple, no nuchal rigidity, no adenopathy, non-tender. No signs of meningismus. FROM of the neck with good chin to chest and neck extension. LUNGS: Crackles throughout. Normal chest wall mechanics. HEART: Tachycardic and regular, no MRG. ABDOMEN: Abdomen soft, non-tender, no masses, no rebound or guarding. BACK: No CVA TTP. SKIN: No rashes. 3 small areas of bruising noted to the abdomen 1 to 2 cm in diameter without TTP no surrounding redness erythema fluctuance drainage or calor. UPPER EXTREMITIES: Upper extremities are grossly normal. LOWER EXTREMITIES: Grossly normal, 2-3+ lower extremity edema without any calf pain or erythema or asymmetry. NEURO EXAM: Awake and alert, follows basic commands, moves all 4 extremities, aphasia noted Past Med/Surg History Medical History Unspecified hereditary retinal dystrophy Bilateral sensorineural hearing loss Bilateral myopia 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 Degeneration of cervical intervertebral disc History of TMJ disorder Hemiplegia Diabetic polyneuropathy Aphasia as late effect of cerebrovascular accident CAD (coronary artery disease) Statin intolerance Atherosclerosis of coronary artery Macular degeneration Mnire's disease Schatzki's ring MELAS (mitochondrial encephalopathy, lactic acidosis and stroke-like episodes) HLD (hyperlipidemia) Type 1 diabetes mellitus Hypertension Surgical History S/P coronary artery stent placement History of heart artery stent History of cochlear implant Left in 2014 History of left heart catheterization 07/2019 which revealed 30% proximal LAD otherwise clean coronaries History of colonoscopy with polypectomy History of cholecystectomy History of hysterectomy Family History Mother Coronary heart disease, Onset Age: 70 Father Coronary heart disease, Onset Age: 50 Daughter MELAS (mitochondrial encephalopathy, lactic acidosis and stroke-like episodes) Social History Smoking Status: Former smoker Tobacco Type: Cigarettes Smoking End Date: 1991-smoked intermittently since age 21; Second Hand Exposure: No; Do You Dip or Chew Tobacco: No; Hx Alcohol Use: No Hx Substance Use: No Preferred Language: Italian Communication Ability: Impaired Communication Ability Comment: Cochlear implants Hearing Ability: Cochlear Implant Buffing Wheel Raker Required: No Beliefs That Will Affect Care: None marital status: Current Living Situation: Family Current Living Situation Comment: SON LIVES WITH PATIENT current occupational status: retired and disabled How many Children do You have: 2 Feels Safe at Home: Yes Assistive Devices: Hearing Aid - Bilateral Allergies Allergies Allergy/AdvReac Type Severity Reaction Status Date / Time atorvastatin AdvReac Intermediate myalgias, Verified 08/05/23 16:28 dysarthria prednisone AdvReac Intermediate metabolic-h Verified 08/05/23 16:28 yperglycemi a Home Meds Home Medications Medication Instructions Recorded Confirmed insulin aspart U-100 100 unit/mL 6 unit subcut TIDM 05/14/20 12/29/23 (3 mL) subcutaneous pen (Novolog FlexPen U-100 Insulin aspart) insulin glargine 100 unit/mL (3 20 unit subcut HS 05/14/20 12/29/23 mL) subcutaneous pen (Lantus Solostar U-100 Insulin) vit A 12,500 unit-zinc 12.5 1 cap PO QAM 05/14/20 12/29/23 [id number] #261 capsule (Lipotriad Vision Support) amlodipine 2.5 mg tablet 2.5 mg PO DAILY 08/10/21 12/29/23 evolocumab 140 mg/mL subcutaneous 140 mg subcut .[id number] 08/10/21 12/29/23 pen injector (Repatha SureClick) coenzyme Q10 100 mg capsule 100 mg PO DAILY 01/14/22 12/29/23 (CoQ-10) Previous Rx's Medication Instructions Recorded aspirin 81 mg tablet,delayed 81 mg PO QAM #90 tabs 05/17/20 release nitroglycerin 0.4 mg sublingual 0.4 mg sublingual UD PRN chest 05/17/20 tablet (Nitrostat) pain #30 tabs metoprolol tartrate 50 mg tablet 50 mg PO BID #60 tabs 07/16/23 Results & Data (ED) Vital Signs Vital Signs - 24 hr 12/29/23 11:47 12/29/23 12:35 12/29/23 12:35 Temperature 36.4 C L Temperature Source Temporal Artery Scan Pulse Rate 118 H 105 H Pulse Rate [Apical] 100 H Respiratory Rate 20 22 22 Respiratory Depth Normal Blood Pressure 131/87 Blood Pressure [Right Arm] 142/101 H Blood Pressure Mean 101 Blood Pressure Mean [Right Arm] 114 Blood Pressure Position [Right Arm] Pulse Oximetry 93 95 95 Oxygen Delivery Method Room Air Room Air Sepsis Recent Fever Within 48 Hours No Sepsis New/Unexplained Change in Mental Status N/A Sepsis Action Taken by Nursing No Action Required 12/29/23 12:56 12/29/23 13:00 Temperature Temperature Source Pulse Rate 116 H Pulse Rate [Apical] 114 H Respiratory Rate 22 Respiratory Depth Blood Pressure Blood Pressure [Right Arm] 121/86 Blood Pressure Mean Blood Pressure Mean [Right Arm] 97 Blood Pressure Position [Right Arm] Lying Pulse Oximetry 95 Oxygen Delivery Method Room Air Sepsis Recent Fever Within 48 Hours Sepsis New/Unexplained Change in Mental Status Sepsis Action Taken by Shelter Medications Current Medication List: was personally reviewed by me Laboratory Data Attestation: I reviewed the patient's lab results. 12/29/23 12:41 12/29/23 12:41 Lab Results 12/29/23 Range/Units 12:41 WBC 10.34 (4.8-10.8) K/ul RBC 5.12 (4.20-5.40) M/uL Hgb 14.2 (12.0-16.0) g/dl Hct 43.8 (37.0-47.0) % MCV 85.5 (80.0-100.0) fL MCH 27.7 (25.0-34.0) pg MCHC 32.4 (32.0-36.0) g/dL RDW Std Deviation 41.7 (36.4-46.3) fL RDW Coeff of Marj 13.4 (11.5-14.5) % Plt Count 282 (130-400) K/uL MPV 11.4 (9.4-12.4) fL Immature Gran % (Auto) 0.3 % Neut % (Auto) 78.1 % Lymph % (Auto) 14.5 % [place] % (Auto) 5.8 % Eos % (Auto) 0.5 % Baso % (Auto) 0.8 % Neut # (Auto) 8.08 H (1.40-6.50) K/uL Lymph # (Auto) 1.50 (1.20-3.40) K/uL [place] # (Auto) 0.60 H (0.11-0.59) K/uL Eos # (Auto) 0.05 (0.00-0.50) K/uL Baso # (Auto) 0.08 (0.00-0.20) K/uL Immature Gran # (Auto) 0.03 (0.01-0.20) K/uL PT 16.1 H (9.0-12.0) Seconds INR 1.5 H (0.9-1.1) APTT 29 (21-31) Seconds PTT Ratio 1.0 Sodium 136 (136-145) mmol/L Potassium 4.4 (3.5-5.1) mmol/L Chloride 103 (98-107) mmol/L Carbon Dioxide 20 L (21-32) mmol/L Anion Gap 13 H (3-11) BUN 30 H (6-23) mg/dl Creatinine 0.86 (0.6-1.2) mg/dl Est Cr Clr Drug Dosing 58.9 ml/min Est GFR ( Amer) 81.0 ml/min Est GFR (Non-Af Amer) 69.9 ml/min BUN/Creatinine Ratio 34.9 H (10-20) Glucose 158 H (70-99(Fasting)) mg/dl Calcium 9.1 (8.6-10.3) mg/dl Magnesium 1.6 L (1.7-2.4) mg/dl Total Bilirubin 1.1 H (0.2-1.0) mg/dl AST 71 H (13-39) U/L ALT 70 H (7-52) U/L Alkaline Phosphatase 65 (34-104) U/L Troponin I High Sens 120.4 H* (0-14) pg/ml B-Natriuretic Peptide 1431 H (0-100) pg/ml Total Protein 6.5 (6.0-8.3) gm/dl Albumin 4.0 (3.4-5.0) gm/dl Globulin 2.5 (2.5-4.0) gm/dl Albumin/Globulin Ratio 1.6 (0.9-2) Administered Medications Discontinued Medications Aspirin (Aspirin 81 Mg Chew) 324 mg PO NOW STA Stop: 12/29/23 15:26 Last Admin: 12/29/23 15:41 Dose: 324 mg Documented By: MELVING Furosemide (Furosemide 40 Mg/4 Ml Vial) 40 mg IV ONE ONE Stop: 12/29/23 13:35 Last Admin: 12/29/23 13:42 Dose: 40 mg Documented By: BESS Magnesium Oxide (Magnesium Oxide 400 Mg Tab) 800 mg PO NOW STA Stop: 12/29/23 13:35 Last Admin: 12/29/23 13:41 Dose: 800 mg Documented By: BESS Imaging Data Radiologist's Impression: Chest X-Ray 12/29/23 12:24 XR chest 1V portable HISTORY: 68 years-old Female Dyspnea acute shortness of breath COMPARISON: 10/04/2023 TECHNIQUE: AP view of the chest FINDINGS: Cardiac silhouette is enlarged. Atherosclerosis of the aorta. No pneumothorax. Small pleural effusions with mild bibasilar consolidation. Pulmonary vascular congestion or central coarsening. Degenerative changes of the shoulders and spine. IMPRESSION: 1. Cardiomegaly with pulmonary vascular congestion. 2. Small pleural effusions with mild bibasilar consolidation. ACT 112: Negative or not required by law. The above report was generated using voice recognition software. It may contain grammatical, syntax or spelling errors. Electronically signed by: Pk Holt M.D. 12/29/2023 1:26 PM Discharge Plan Visit Data Chief Complaint: Swelling/Edema to Extremity Stated Complaint: BILATERAL FEET AND ABD SWELLING, TAKING NITRO PILL ED Provider: Roland Fowler Discharge Problem: Acute exacerbation of CHF (congestive heart failure), Acute dyspnea, Hypomagnesemia, Leg swelling Discharge Instructions Interventions: ED Discharge Assessment Last Done: 12/29/23 16:41 Discharge Problem: Acute exacerbation of CHF (congestive heart failure) Qualifiers: Heart failure type: unspecified Qualified Code(s): I50.9 - Heart failure, unspecified
[2023-12-29 12:53] LABS: Hemoglobin 14.2 g/dl (12.0-16.0); Red Blood Count 5.12 M/uL (4.20-5.40); White Blood Count 10.34 K/ul (4.8-10.8)
[2023-12-29 12:54] LABS: Basophils # (auto) 0.08 K/uL (0.00-0.20); Basophils % (auto) 0.8 %; Eosinophils # (auto) 0.05 K/uL (0.00-0.50); Eosinophils % (auto) 0.5 %; Hematocrit (blood only) 43.8 % (37.0-47.0); Immature Granulocytes # (auto) 0.03 K/uL (0.01-0.20); Immature Granulocytes % (auto) 0.3 %; Lymphocytes % (auto) 14.5 %; Mean Corpuscular Hemoglobin 27.7 pg (25.0-34.0); Mean Corpuscular Hgb Conc 32.4 g/dL (32.0-36.0); Mean Corpuscular Volume 85.5 fL (80.0-100.0); Mean Platelet Volume 11.4 fL (9.4-12.4); Monocytes % (auto) 5.8 %; Neutrophils # (auto) 8.08 K/uL (1.40-6.50); Neutrophils % (auto) 78.1 %; Platelet Count 282 K/uL (130-400); RDW Coefficient of Variation 13.4 % (11.5-14.5); RDW Standard Deviation 41.7 fL (36.4-46.3)
[2023-12-29 13:14] LABS: Albumin Globulin Ratio 1.6 (0.9-2); BUN Creatinine Ratio 34.9 (10-20); Bilirubin,Total 1.1 mg/dl (0.2-1.0); Calcium 9.1 mg/dl (8.6-10.3); Creatinine Clr Calc Pharmacy 58.9 ml/min; Est GFR (Non-African American) 69.9 ml/min; Globulin 2.5 gm/dl (2.5-4.0); Magnesium 1.6 mg/dl (1.7-2.4); Potassium 4.4 mmol/L (3.5-5.1); Total Protein 6.5 gm/dl (6.0-8.3)
[2023-12-29 13:22] LABS: INR 1.5 (0.9-1.1); Partial Thromboplastin Time 29 Seconds (21-31); Prothrombin Time 16.1 Seconds (9.0-12.0)
--- NOTE | 2023-12-29 13:28 | XRay Report ---
XR chest 1V portable HISTORY: 68 years-old Female Dyspnea acute shortness of breath COMPARISON: 10/04/2023 TECHNIQUE: AP view of the chest FINDINGS: Cardiac silhouette is enlarged. Atherosclerosis of the aorta. No pneumothorax. Small pleural effusion s with mild bibasilar consolidation. Pulmonary vascular congestion or central coarsening. Degenerativ e changes of the shoulders and spine. IMPRESSION: 1. Cardiomegaly with pulmonary vascular congestion. 2. Small pleural effusions with mild bibasilar consolidation. ACT 112: Negative or not required by law. The above report was generated using voice recognition software. It may contain grammatical, syntax o r spelling errors. Electronically signed by: Pk Holt M.D. 12/29/2023 1:26 PM
--- NOTE | 2023-12-29 13:31 | Electrocardiogram Report ---
Test Reason : Blood Pressure : / mmHG Vent. Rate : 117 BPM Atrial Rate : 117 BPM P-R Int : 122 ms QRS Dur : 082 ms QT Int : 324 ms P-R-T Axes : 059 -48 137 degrees QTc Int : 451 ms Sinus tachycardia Left atrial enlargement Left anterior fascicular block Low voltage QRS Old Anteroseptal infarct (cited on or before 07-MAY-2023) Nonspecific T wave abnormality Lateral leads Abnormal ECG When compared with ECG of 04-OCT-2023 11:40, Premature supraventricular complexes are no longer Present Vent. rate has increased BY 54 BPM QRS voltage has decreased Confirmed by You Rey ([id number]) on 12/29/2023 1:31:17 PM Referred By: REFERRED SELF Confirmed By:You Rey
[2023-12-29] MEDS: MAGNESIUM OXIDE 400 MG TAB PO STA (13:41)
[2023-12-29] MEDS: FUROSEMIDE 40 MG/4 ML VIAL IV ONE (13:42)
--- NOTE | 2023-12-29 13:57 | History & Physical Report ---
Date of Service December 29, 2023 Assessment & Plan (1) Acute heart failure with preserved ejection fraction (HFpEF): Plan: Pt presents with what appears to be a heart failure syndrome. She denies any chest pain at this time, but has been consistently using nitroglycerin "to help me sleep." It is unclear if this may have been helping her shortness of breath in the setting of heart failure exacerbation, treating worsened, undisclosed chest pain, or something else. Initial HS trop is elevated which may be the result of demand ischemia, especially with a similar rise in LFTs noted up from her baseline (normal and last checked in Sep 2023) , which may occur from the fluid overloaded state. EKG is unchanged from prior except for new tachycardia. Will trend trop, give full ASA today. Statins are contraindicated given h/o MELAS. Will restart her metoprolol and hold amlodipine given known side effects of fluid retention and BP at goal currently. Lasix 40mg IV was given in ER today. Will cont low sodium diet, and daily weights. Will cont Lasix once daily. Repeat echo pending. Monitor on telemetry. Cardiology consultation. If there is an accelerated rise in HS trop on trend, will consider heparin empirically given her h/o NSTEMI in the past with CAD and stent. (2) ASCVD (arteriosclerotic cardiovascular disease): Plan: chronic, recently noncompliant with ASA and metoprolol which were restarted. Cont plan as noted above. (3) Hypomagnesemia: Plan: some recent diarrhea reported which may be the cause here. Replace and repeat in am, torrie while on IV lasix. Will obtain stool sample if diarrhea is present in next 48 hours. (4) Transaminitis: Plan: Likely related to fluid overload state. Will order nonurgent RUQ ultrasound and trend in am. (5) MELAS (mitochondrial encephalopathy, lactic acidosis and stroke-like episodes): Plan: statins contraindicated, h/o stroke with residual expressive and receptive deficits. She is very functional per her son with who she lives, including most IADLs. Hemiplegia reported but she has symmetric strength in both sides, and reportedly ambulates independently per son. Cont daily aspirin. PT/OT to assess. (6) Type 1 diabetes mellitus: Plan: chronic, uncontrolled (last A1C 7.8) with polyneuropathy and macular degeneration. Repeat A1C in am and cont basal bolus insulin during this admission. (7) HLD (hyperlipidemia): Plan: chronic, stable. She continues on Repatha injections. (8) Hypertension: Plan: chronic, at goal. Cont with plan noted above. Holding amlodipine. DVT proph: Lovenox Full Code which was confirmed with son on admission. He reports that mother doesn't want any roasterman life support. Dispo- to telemetry I spent a total [id number] coordinating, documenting, and providing care for this patient excluding time spent in the performance of separately billed services Laney Murcia DO [facility] Hospitalist History of Present Illness Chief Complaint: swelling Primary Care Provider: Amairani Owen MD Patient is a 68-year-old female who presented to the ER today for concern of worsening swelling of the bilateral lower extremities. She is a type I diabetic who was recently admitted to the hospital in June 2023 for chest pain worked up with a Lexiscan nuclear stress test which was negative for inducible ischemia with a normal LV function and wall motion. She lives at home with her son and s he manages her own medications. She has a h/o hemiplegia with chronic aphasia; son reports she ambulates without assistance, cooks her own meals and uses a smart phone independently. Evidence of LE swelling, elevated BNP on today's labwork and CXR with bilateral pleural effusions and pulmonary vascular congestion point to CHF exacerbation as a cause of her symptoms. She was given furosemide 40mg IV in the ER today and a bingham catheter was placed. It is difficult to get a history from the patient with her expressive and receptive aphasia post stroke as well as her hearing loss. Son was present at bedside and assisted with history. Patient reports noncompliance with "all my medications" for the past 10 days because she was "sick." Son reports that she was having bouts of diarrhea and was taking Kaopectate OTC for this. He isn't sure if this has cleared up. The patient mentions having to get up at night and "go to the bathroom" which appears like a frequent and distressing thing for her the way she describes this and then having to take Kaopectate and nitroglycerin to help her get some sleep. She apparently has been taking nitroglycerin nightly, but denies chest pain, although history is very difficult here. The patient doesn't follow a clear line of Q/A and tends to tangent when answering a question. She does appear to be clear in reporting worsening SOB for the last few days and son reports increased swelling in her legs for only the last couple of days. There is no report of fever, coughing, chills. Son isn't sure if the diarrhea has cleared up and notes that he was not sick. He lives with her, but patient manages her own medications. Son reports, patient's sister has been taking her to medical appointments recently and he isn't sure of any changes in medications/plans. There is some abdominal bruising present, which may be a side effect of Repatha she takes every 2 weeks. She does self-administer insulin and reports having this consistently "because I am a diabetic" but not any of her other medications. She is tolerating food without any report of vomiting. Last ate some waffles this morning. Son reports that she eats alot of crackers, but no clear dietary indiscretions that are new per se. Med list was confirmed with her outpatient record as patient was unable to give an accurate list with her communication disabilities. Allergies Allergy/AdvReac Type Severity Reaction Status Date / Time atorvastatin AdvReac Intermediate myalgias, Verified 08/05/23 16:28 dysarthria prednisone AdvReac Intermediate metabolic-h Verified 08/05/23 16:28 yperglycemi a Home Medications Medication Instructions Recorded Confirmed Type insulin aspart U-100 100 unit/mL 6 unit subcut TIDM 05/14/20 12/29/23 History (3 mL) subcutaneous pen (Novolog FlexPen U-100 Insulin aspart) insulin glargine 100 unit/mL (3 20 unit subcut HS 05/14/20 12/29/23 History mL) subcutaneous pen (Lantus Solostar U-100 Insulin) vit A 12,500 unit-zinc 12.5 1 cap PO QAM 05/14/20 12/29/23 History qc-xwlaam-eokov-bilberry-herb #261 capsule (Lipotriad Vision Support) aspirin 81 mg tablet,delayed 81 mg PO QAM #90 tabs 05/17/20 12/29/23 Rx release nitroglycerin 0.4 mg sublingual 0.4 mg sublingual UD PRN chest 05/17/20 12/29/23 Rx tablet (Nitrostat) pain #30 tabs amlodipine 2.5 mg tablet 2.5 mg PO DAILY 08/10/21 12/29/23 History evolocumab 140 mg/mL subcutaneous 140 mg subcut .[id number] 08/10/21 12/29/23 History pen injector (shabbir Nicholson) coenzyme Q10 100 mg capsule 100 mg PO DAILY 01/14/22 12/29/23 History (CoQ-10) metoprolol tartrate 50 mg tablet 50 mg PO BID #60 tabs 07/16/23 12/29/23 Rx Past Med/Surg History Medical History Unspecified hereditary retinal dystrophy Bilateral sensorineural hearing loss Bilateral myopia 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 Degeneration of cervical intervertebral disc History of TMJ disorder Hemiplegia Diabetic polyneuropathy Aphasia as late effect of cerebrovascular accident CAD (coronary artery disease) Statin intolerance Atherosclerosis of coronary artery Macular degeneration Mnire's disease Schatzki's ring MELAS (mitochondrial encephalopathy, lactic acidosis and stroke-like episodes) HLD (hyperlipidemia) Type 1 diabetes mellitus Hypertension Surgical History S/P coronary artery stent placement History of heart artery stent History of cochlear implant Left in 2014 History of left heart catheterization 07/2019 which revealed 30% proximal LAD otherwise clean coronaries History of colonoscopy with polypectomy History of cholecystectomy History of hysterectomy Family History Mother Coronary heart disease, Onset Age: 70 Father Coronary heart disease, Onset Age: 50 Daughter MELAS (mitochondrial encephalopathy, lactic acidosis and stroke-like episodes) Social History Smoking Status: Former smoker Tobacco Type: Cigarettes Second Hand Exposure: No; Do You Dip or Chew Tobacco: No; Hx Alcohol Use: No Hx Substance Use: No Preferred Language: Syriac Communication Ability: Impaired Communication Ability Comment: Cochlear implants Hearing Ability: Cochlear Implant Spud Sorter Required: No Beliefs That Will Affect Care: None marital status: Current Living Situation: Family Current Living Situation Comment: SON LIVES WITH PATIENT current occupational status: retired and disabled How many Children do You have: 2 Feels Safe at Home: Yes Assistive Devices: Hearing Aid - Bilateral Physical Exam Physical Exam: CONSTITUTIONAL: WNWD, vitals as above, generally well-appearing, NAD EYES: EOMI bilaterally, PERRL, no scleral icterus ENT: external ear and nose normal, oropharynx clear, MMM, lips are dry, +cochlear implant on the left NECK: trachea midline RESPIRATORY: poor effort 2/2 not understanding the direction well and patient trying to speak when breathing, +crackles heard at bilateral bases and in anterior lungs bilaterally, no rales or wheezes, slight increased respiratory effort with some conversational dyspnea at rest. CARDIOVASCULAR: tachy rate and reg rhythm, S1 and 2 heard without murmurs, gallops or rubs, slight JVD, trace peripheral edema in lower extremities bilaterally to knees CHEST: inspection of chest was normal GASTROINTESTINAL: soft, nontender, ND, no guarding, some abdominal bruising. MUSCULOSKELETAL: strength 5/5 throughout, head is normocephalic and atraumatic, neck supple, normal palpation of chest wall without tenderness SKIN: warm and dry, no rashes NEUROLOGIC: patellar DTRs attempted but unable to elicit bilaterally. PERRL, EOMI, no facial palsy, + dysarthria (at baseline). CN 2-12 grossly intact, normal cognition (at her baseline), no tremor PSYCHIATRIC: alert cooperative, appears to be oriented but cannot confirm given aphasia. Able to follow commands and given some accurate pieces of the story. Euthymic mood, makes good eye contact, language grossly intact, recent and remote memory grossly intact. Results & Data Results & Data Vital Signs (Past 12 Hours) Vital Signs Temp Pulse Pulse Resp BP BP Pulse Ox 12/29/23 13:00 114 H 22 121/86 95 12/29/23 12:56 116 H 12/29/23 12:35 105 H 22 95 12/29/23 12:35 100 H 22 142/101 H 95 12/29/23 11:47 36.4 C L 118 H 20 131/87 93 O2 Del Method 12/29/23 13:00 Room Air 12/29/23 12:56 12/29/23 12:35 Room Air 12/29/23 12:35 Room Air 12/29/23 11:47 Laboratory Results Short CBC 12/29/23 Range/Units 12:41 WBC 10.34 (4.8-10.8) K/ul Hgb 14.2 (12.0-16.0) g/dl Hct 43.8 (37.0-47.0) % Plt Count 282 (130-400) K/uL BMP 12/29/23 12:41 Sodium 136 Potassium 4.4 Chloride 103 Carbon Dioxide 20 L BUN 30 H Creatinine 0.86 Glucose 158 H Calcium 9.1 Liver Function 12/29/23 Range/Units 12:41 Total Bilirubin 1.1 H (0.2-1.0) mg/dl AST 71 H (13-39) U/L ALT 70 H (7-52) U/L Alkaline Phosphatase 65 (34-104) U/L Albumin 4.0 (3.4-5.0) gm/dl Diagnostic Findings Chest X-Ray 12/29/23 12:24 XR chest 1V portable HISTORY: 68 years-old Female Dyspnea acute shortness of breath COMPARISON: 10/04/2023 TECHNIQUE: AP view of the chest FINDINGS: Cardiac silhouette is enlarged. Atherosclerosis of the aorta. No pneumothorax. Small pleural effusions with mild bibasilar consolidation. Pulmonary vascular congestion or central coarsening. Degenerative changes of the shoulders and spine. IMPRESSION: 1. Cardiomegaly with pulmonary vascular congestion. 2. Small pleural effusions with mild bibasilar consolidation. ACT 112: Negative or not required by law. The above report was generated using voice recognition software. It may contain grammatical, syntax or spelling errors. Electronically signed by: Pk Holt M.D. 12/29/2023 1:26 PM Code Status & VTE Plan VTE Prophylaxis Plan VTE Prophylaxis will be ordered: Yes
[2023-12-29 14:36] LABS: Troponin I High Sensitivity 120.4 pg/ml (0-14)
[2023-12-29 15:13] LABS: Appearance Urine Clear (Clear); Bilirubin Urine Negative (Negative); Blood Urine Trace-intact (Negative); Color Urine Yellow; Glucose Urine UA Negative (Negative); Ketones Urine Negative (Negative); Leukocyte Esterase Urine Negative (Negative); Nitrite Urine Negative (Negative); Protein Urine 1+ (Negative); Urobilinogen Urine Negative (Negative); pH Urine 5.5 (4.5-7.5)
[2023-12-29] MEDS: ASPIRIN 81 MG CHEW PO STA (15:41)
[2023-12-29 15:43] LABS: Epithelial Cell Urine 0-5 /lpf (0-5)
[2023-12-29 15:44] LABS: Bacteria Urine Negative (Negative); Hyaline Casts Urine 0-5 /lpf (0-5); RBC Urine 0-4 /hpf (0-4); WBC Urine 0-5 /hpf (0-5)
--- NOTE | 2023-12-29 16:34 | Ultrasound Report ---
ABDOMINAL ULTRASOUND, RIGHT UPPER QUADRANT HISTORY: Elevated LFTs elevated LFTs. COMPARISON: Ultrasound 08/31/2016 FINDINGS: Pancreas: The pancreas demonstrates a normal echotexture. Liver: Unremarkable. No hepatic mass or marginal nodularity. Gallbladder: Surgically absent. CBD: 0.3 cm. Right kidney: No hydronephrosis. A right pleural effusion is incidentally noted. IMPRESSION: Unremarkable exam status post cholecystectomy. ACT 112: Negative or not required by law. Electronically signed by: Pk Holt M.D. 12/29/2023 4:33 PM
[2023-12-29] MEDS ORDERED: POLYETHYLENE (MIRALAX) 17 GM PACK PO PRN (16:41)
[2023-12-29] MEDS ORDERED: GLUCAGON FOR INJ 1 MG VIAL SQ PRN (16:41)
[2023-12-29] MEDS ORDERED: NITROGLYCERIN SL 0.4 MG/TAB TAB SL PRN (16:41)
[2023-12-29] MEDS ORDERED: ACETAMINOPHEN 325 MG TAB PO PRN (16:41)
[2023-12-29] MEDS ORDERED: GLUCOSE 40% GEL 15 GM TUBE PO PRN (16:41)
[2023-12-29] MEDS ORDERED: METOPROLOL TARTRATE 50 MG TAB PO SCH (17:00)
[2023-12-29] MEDS: METOPROLOL TARTRATE 50 MG TAB PO SCH (17:43)
[2023-12-29] MEDS: ENOXAPARIN INJ 40 MG/0.4 ML SYR SQ SCH (17:43)
[2023-12-29] MEDS: INSULIN ASPART PER UNIT CHARGE SC SCH (17:43)
[2023-12-29] MEDS: LANTUS PER UNIT CHARGE SQ SCH (23:32)
[2023-12-30 06:31] LABS: Hematocrit (blood only) 41.5 % (37.0-47.0); Hemoglobin 13.7 g/dl (12.0-16.0); Mean Corpuscular Hemoglobin 27.7 pg (25.0-34.0); Mean Corpuscular Volume 83.8 fL (80.0-100.0); Mean Platelet Volume 11.7 fL (9.4-12.4); Platelet Count 298 K/uL (130-400); RDW Coefficient of Variation 13.7 % (11.5-14.5); RDW Standard Deviation 41.8 fL (36.4-46.3); Red Blood Count 4.95 M/uL (4.20-5.40); White Blood Count 10.51 K/ul (4.8-10.8)
[2023-12-30 06:54] LABS: Albumin Globulin Ratio 1.7 (0.9-2); Albumin Level 3.8 gm/dl (3.4-5.0); BUN Creatinine Ratio 26.6 (10-20); Bilirubin,Total 1.3 mg/dl (0.2-1.0); Calcium 8.7 mg/dl (8.6-10.3); Creatinine Clr Calc Pharmacy 33.7 ml/min; Est GFR (African American) 50.1 ml/min; Est GFR (Non-African American) 43.2 ml/min; Globulin 2.2 gm/dl (2.5-4.0); Magnesium 1.7 mg/dl (1.7-2.4); Potassium 4.9 mmol/L (3.5-5.1)
[2023-12-30 07:37] LABS: Estimated Average Glucose 174 mg/dl; Hemoglobin A1C 7.7 % (4.5-5.6)
[2023-12-30] MEDS: ASPIRIN 81 MG ECTAB PO SCH (08:11)
--- NOTE | 2023-12-30 08:39 | Cardiology Consultation ---
Date of Consultation December 30, 2023 Assessment & Plan (1) Acute on chronic heart failure with reduced ejection fraction and diastolic dysfunction: (2) CAD (coronary artery disease): Plan Patient admitted with signs/symptoms of acute CHF with evidence of volume overload on exam, hypoxia, b/l pleural effusions. Minimally elevated troponin, but flat ranging 120-125 No acute EKG changes. Repeat echo with interval decline in LVEF at around 35% (formal report pending) when compared with prior echo in June 2023. Due to intermittent chest pain the fall, patient was to have a repeat nuclear stress test at our office tomorrow. She reports her chest pain had resolved with initiation of isosorbide. She was taking SL nitro over the last 10 days, but implies this was due to SOB/chest tightness when trying to lay supine. Recommend ongoing treatment with furosemide 20 mg IV today. She received furosemide IV 40 mg late yesterday which resulted in mild hypotension. Now improved. Good urine outputs. Monitor I+O's. Daily weight with standing scale. She has a complex history of CAD, s/p LAD stent and subtotal occlusion of the RPDA branch of the RCA in 2019, not amenable to revascularization. Repeat cath in 2020 with stable findings. negative nuclear stress test in June 2023. Now with interval decline in LVEF. Continue ASA. Patient not on statin due to history of MELAS. Compliant with PCSK9 inhib. Once patient's volume status has improved, will consider repeat cardiac catheterization given history of CAD and interval decline in LVEF. She was to have repeat nuclear stress test at [facility] tomorrow. this is now cancelled. Will slowly initiate GDMT given reduced EF. Stop metoprolol tartrate and transition to metoprolol succinate 50 mg daily. Titrate as tolerated. Consider LAUREN/ARB vs Entresto. however, given need for ongoing diuresis and borderline hypotension, will not initiate. Isosorbide on hold. Will follow. Case discussed with Dr. Sampson I spent a total of 60 minutes on the date of service in preparation, delivery, and documentation of the care provided to this patient, excluding any time spent in the performance of separately billed services. Quynh Marrero PA-C Department of Cardiology, [facility] This chart was completed in part utilizing Speech Voice Recognition Software. Grammatical errors, random word insertions, pronoun errors, and incomplete sentences are an occasional consequence of this system due to software limitations, ambient noise, and hardware issues. Any formal questions or concerns about the content, text, or information contained within the body of this dictation should be directly addressed to the provider for clarification. Supervising Physician Co-Signing Physician Notes I have reviewed the advance practitioner's documentation, and I agree with, and take responsibility for the plan of care. 68-year-old female presented to the emergency department with more than 1 week history of progressive shortness of breath with associated chest pressure and orthopnea. Patient with known LAD stent and chronic subtotal occlusion of the right posterior descending artery that is not amenable to revascularization. Poor historian due to baseline aphasia. PE: VSS with borderline hypotension. General: NAD, awake alert, oriented x 3. Heart: Regular rhythm, normal S1-S2. No murmur. Lungs: Diminished breath sounds at the bases bilateral. Abdomen: Soft, nontender, nondistended, normal bowel sounds. Extremities: 1+ bilateral pretibial edema. A/P: 68-year-old female admitted with acute decompensated heart failure. Echocardiogram reveals decline in LV systolic function with LVEF 35-40%. Recommend continue diuresis as tolerated. Mildly increased creatinine noted today with borderline hypotension. Unable to add LAUREN/ARB/Aldactone/Entresto currently. Monitor fluid balance, daily weight, GFR, and electrolytes. Patient will likely require repeat ischemic evaluation prior to discharge given decline in LV systolic function. I spent a total of 31 minutes on the date of service in preparation, delivery, and documentation of the care provided to this patient, excluding any time spent in the performance of separately billed services. History of Present Illness Reason for Consultation: CHF Requesting Physician: Dr. Murcia Attending Physician: Dr. Sampson History of Present Illness Patient is a 68 year old female known to [facility]iology, Dr. Thomas. Patient came to [facility] with complaints of worsening SOB, edema. Cardiac Problem List: 1. Coronary heart disease, non STEMI, prompting cardiac catheterization, drug- eluting stent to the proximal LAD, [facility], 05/16/2020, subtotal occlusion of the RPDA branch of the distal right coronary artery supplied with [id number] collaterals, treated medically, not amenable to revascularization 2. Intolerance of Brilinta prompting transition to clopidogrel 3. Recurrent angina prompting nuclear stress test November,, with abnormal EKG response, symptoms of angina reproduced 4. Repeat cardiac catheterization, [facility], 12/12/2020 with findings of patent LAD stent, distal RPDA stenosis once again observed with [id number] collaterals unchanged 5. MELAS syndrome, (myopathy, encephalopathy, lactic acidosis and stroke) therefore not statin candidate 6. EGD, 2015, Mild Schatzki ring. Dilated 7. January 2022 with an acute left MCA infarction, with hemiplegia (per records) and expressive aphasia. In the fall 2022, patient was evaluated multiple times in the [facility] ER for chest pain, somewhat atypical for cardiac etiology. She had underwent nuclear stress testing at [facility] in June 2023 which was negative for inducible ischemia. Preserved EF at that time at 55% without wall motion abnormalities. Given recurrent symptoms on multiple occasions patient was ordered to have repeat nuclear stress test as an outpatient but this was not completed. She was started on isosorbide per encounter but unsure if patient started therapy. Patient lives with son. Apparently she had been "sick" with recurrent diarrhea over the last 2 weeks and did not take any of her medications. She developed worsening SOB and lower extremity edema and came to the ER for evaluation. Chest xray with mild b/l pleural effusions. Troponin minimally elevated at 120, but flat increasing to 125. She was started on IV furosemide on admission to aid fluid status/respiratory status. EKG demonstrates Sinus tachycardia with LAFB, poor R wave progression, similar to past tracings. At time of consult, patient resting in bed comfortably. Review of systems is limited by her expressive aphasia. She reports feeling "better" compared to admission but continues to report mild SOB with LE edema. She admits she was taking 1 SL nitro at bedtime the last 10 days to help her sleep. Noted chest tightness when trying to lay supine, difficulty taking a deep breath. She felt the SL nitro aided her symptoms and let her rest. No exertional chest pain during the day. No chest pain on arrival. She reports edema has improved compared to several days ago, but not yet at baseline. Tolerating medications. BP is borderline low, but she denies dizziness. Allergies Allergy/AdvReac Type Severity Reaction Status Date / Time atorvastatin AdvReac Intermediate myalgias, Verified 08/05/23 16:28 dysarthria prednisone AdvReac Intermediate metabolic-h Verified 08/05/23 16:28 yperglycemi a Home Medications Medication Instructions Recorded Confirmed Type insulin aspart U-100 100 unit/mL 6 unit subcut TIDM 05/14/20 12/29/23 History (3 mL) subcutaneous pen (Novolog FlexPen U-100 Insulin aspart) insulin glargine 100 unit/mL (3 20 unit subcut HS 05/14/20 12/29/23 History mL) subcutaneous pen (Lantus Solostar U-100 Insulin) vit A 12,500 unit-zinc 12.5 1 cap PO QAM 05/14/20 12/29/23 History lr-[id number]-jmypq-bilberry-herb #261 capsule (Lipotriad [employer] Support) aspirin 81 mg tablet,delayed 81 mg PO QAM #90 tabs 05/17/20 12/29/23 Rx release nitroglycerin 0.4 mg sublingual 0.4 mg sublingual UD PRN chest 05/17/20 12/29/23 Rx tablet (Nitrostat) pain #30 tabs amlodipine 2.5 mg tablet 2.5 mg PO DAILY 08/10/21 12/29/23 History evolocumab 140 mg/mL subcutaneous 140 mg subcut .[id number] 08/10/21 12/29/23 History pen injector (Jaime Nicholson) coenzyme Q10 100 mg capsule 100 mg PO DAILY 01/14/22 12/29/23 History (CoQ-10) metoprolol tartrate 50 mg tablet 50 mg PO BID #60 tabs 07/16/23 12/29/23 Rx Patient History Medical History Unspecified hereditary retinal dystrophy Bilateral sensorineural hearing loss Bilateral myopia 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 Degeneration of cervical intervertebral disc History of TMJ disorder Hemiplegia Diabetic polyneuropathy Aphasia as late effect of cerebrovascular accident CAD (coronary artery disease) Statin intolerance Atherosclerosis of coronary artery Macular degeneration Mnire's disease Schatzki's ring MELAS (mitochondrial encephalopathy, lactic acidosis and stroke-like episodes) HLD (hyperlipidemia) Type 1 diabetes mellitus Hypertension Surgical History S/P coronary artery stent placement History of heart artery stent History of cochlear implant Left in 2014 History of left heart catheterization 07/2019 which revealed 30% proximal LAD otherwise clean coronaries History of colonoscopy with polypectomy History of cholecystectomy History of hysterectomy Family History Mother Coronary heart disease, Onset Age: 70 Father Coronary heart disease, Onset Age: 50 Daughter MELAS (mitochondrial encephalopathy, lactic acidosis and stroke-like episodes) Social History Smoking Status: Never smoker Tobacco Type: Cigarettes Smoking End Date: quit 1991-smoked intermittently since age 21; Second Hand Exposure: No; Do You Dip or Chew Tobacco: No; Preferred Language: Guamanian Communication Ability: Impaired Communication Ability Comment: Cochlear implant, communication difficult at times Hearing Ability: Cochlear Implant Bladder Tier Required: No Beliefs That Will Affect Care: None marital status: Current Living Situation: Family Current Living Situation Comment: per patient, son lives with her current occupational status: retired and disabled How many Children do You have: 2 Feels Safe at Home: Yes Safety Concerns: Feels Safe At This Time Assistive Devices: Cane, Glasses and Other Assistive Devices Comment: cochlear implant Review of Systems Review of Systems: All systems reviewed & are unremarkable except as noted in HPI & below Physical Exam Constitutional: WD/WN, vitals as above no acute distress Neck: normal visual inspection Respiratory: no respiratory distress Auscultation: + diminished lung sounds and + crackles Cardiovascular: Rate/Rhythm: regular rate and regular rhythm Heart Sounds: + murmur (II/ at apex) Extremities: + edema (1+ pretibial edema b/l ) Gastrointestinal (Abdomen): normal bowel sounds, soft, nontender, no hepatosplenomegaly Neurologic: Speech / Cognition: + expressive aphasia Results & Data Vital Signs (Past 12 Hours) Vital Signs Temp Pulse Resp BP Pulse Ox O2 Del Method 12/30/23 07:18 36.6 C 74 23 93/65 L 100 Room Air 12/30/23 03:00 72 32 H 88/68 L 96 Room Air 12/30/23 01:20 Room Air 12/29/23 23:00 36.6 C 74 27 H 91/67 L 97 Room Air Laboratory Results Cardiac Enzymes 12/29/23 12/29/23 12/29/23 Range/Units 12:41 16:31 22:28 AST 71 H (13-39) U/L Troponin I High Sens 120.4 H* 110.1 H* 125.4 H* (0-14) pg/ml B-Natriuretic Peptide 1431 H (0-100) pg/ml 12/30/23 Range/Units 05:54 AST 103 H (13-39) U/L Troponin I High Sens (0-14) pg/ml B-Natriuretic Peptide (0-100) pg/ml Coagulation 12/29/23 Range/Units 12:41 PT 16.1 H (9.0-12.0) Seconds APTT 29 (21-31) Seconds B-Natriuretic Peptide 1431 H (0-100) pg/ml CBC 12/29/23 12/30/23 Range/Units 12:41 05:54 WBC 10.34 10.51 (4.8-10.8) K/ul RBC 5.12 4.95 (4.20-5.40) M/uL Hgb 14.2 13.7 (12.0-16.0) g/dl Hct 43.8 41.5 (37.0-47.0) % Plt Count 282 298 (130-400) K/uL Neut # (Auto) 8.08 H (1.40-6.50) K/uL Lymph # (Auto) 1.50 (1.20-3.40) K/uL Mayes # (Auto) 0.60 H (0.11-0.59) K/uL Eos # (Auto) 0.05 (0.00-0.50) K/uL Baso # (Auto) 0.08 (0.00-0.20) K/uL Comprehensive Metabolic Panel 12/29/23 12/30/23 Range/Units 12:41 05:54 Sodium 136 136 (136-145) mmol/L Potassium 4.4 4.9 (3.5-5.1) mmol/L Chloride 103 101 (98-107) mmol/L Carbon Dioxide 20 L 22 (21-32) mmol/L BUN 30 H 34 H (6-23) mg/dl Creatinine 0.86 1.28 H D (0.6-1.2) mg/dl Glucose 158 H 120 H (70-99(Fasting)) mg/dl Calcium 9.1 8.7 (8.6-10.3) mg/dl AST 71 H 103 H (13-39) U/L ALT 70 H 89 H (7-52) U/L Alkaline Phosphatase 65 80 (34-104) U/L Total Protein 6.5 6.0 (6.0-8.3) gm/dl Albumin 4.0 3.8 (3.4-5.0) gm/dl Intake and Output 12/29/23 12/30/23 12/30/23 22:59 06:59 14:59 Intake Total 600 / 750 Output Total 1050 / 1480 50 / 1480 Balance -450 / -730 -50 / -730 Intake: Oral 600 / 750 Output: Urine Amount (Catheter) 1050 / 1480 50 / 1480 Hess/Indwelling 1050 / 1480 50 / 1480 Other: Weight 54.9 kg 54.9 kg Weight Measurement Method Standing Scale Standing Scale Diagnostic Findings Telemetry reviewed: NSR in the 70-80's. Rare ectopy EKG on admission: Sinus tachycardia at 117 bmp LAFB Old anteroseptal infarct, previously reported No acute changes Prelim echo report: reduced LVEF 35% Severe MR Chest xray report reviewed dated Dec 2023: IMPRESSION: 1. Cardiomegaly with pulmonary vascular congestion. 2. Small pleural effusions with mild bibasilar consolidation. Echo report reviewed from June 2023: EF 55-60% Mild Concentric LVH No wall motion abnormalities No significant valvular disease. Nuclear stress test report reviewed dated June 2023 at [facility]: Normal Lexiscan nuclear stress test. no evidence of ischemia or scar. Normal LV systolic function. Medications Administered Current Inpatient Medications Acetaminophen (Acetaminophen 325 Mg Tab) 650 mg PO Q4H PRN PRN Reason: Pain or Fever Stop: 01/28/24 16:40 Aspirin (Aspirin 81 Mg Ectab) 81 mg PO QAM CLEMENTINA Stop: 01/29/24 08:59 Last Admin: 12/30/23 08:11 Dose: 81 mg Dextrose (Dextrose 50% 50 Ml Syringe) 25 - 50 ml IV UD PRN; Protocol PRN Reason: Hypoglycemia Protocol Stop: 01/28/24 16:40 Enoxaparin Sodium (Enoxaparin Inj 40 Mg/0.4 Ml Syr) 40 mg SQ Q24H CLEMENTINA Stop: 01/28/24 16:59 Last Admin: 12/29/23 17:43 Dose: 40 mg Furosemide (Furosemide Inj 20 Mg/2 Ml Vial) 20 mg IV DAILY CLEMENTINA Stop: 01/29/24 08:59 Glucagon (Glucagon For Inj 1 Mg Vial) 1 mg SQ UD PRN; Protocol PRN Reason: Hypoglycemia Protocol Stop: 01/28/24 16:40 Glucose (Glucose 10 Tab/Tube) 4 - 8 tab PO UD PRN; Protocol PRN Reason: Hypoglycemia Treatment Stop: 01/28/24 16:40 Glucose (Glucose 40% Gel 15 Gm Tube) 15 - 30 gm PO UD PRN; Protocol PRN Reason: Hypoglycemia Protocol Stop: 01/28/24 16:40 Insulin Aspart (Insulin Aspart Per Unit Charge) 0 units SC ACHS CLEMENTINA Stop: 01/28/24 16:40 Last Admin: 12/30/23 07:53 Dose: Not Given Insulin Glargine (Lantus Per Unit Charge) 10 units SQ BID CLEMENTINA Stop: 01/28/24 20:59 Last Admin: 12/30/23 08:11 Dose: 10 units Metoprolol Tartrate (Metoprolol Tartrate 50 Mg Tab) 50 mg PO BID CLEMENTINA Stop: 01/28/24 16:59 Last Admin: 12/29/23 17:43 Dose: 50 mg Miscellaneous (Carbohydrates For Hypoglycemia ) 15 - 30 gm PO UD PRN PRN Reason: Hypoglycemia Protocol Stop: 01/28/24 16:40 Nitroglycerin (Nitroglycerin Sl 0.4 Mg/Tab Tab) 0.4 mg SL UD PRN PRN Reason: chest pain Stop: 01/28/24 16:40 Polyethylene Glycol (Polyethylene (Miralax) 17 Gm Pack) 17 gm PO DAILY PRN PRN Reason: Constipation Stop: 01/28/24 16:40 (2) CAD (coronary artery disease) Associated angina: with stable angina Coronary Disease-Associated Artery/Lesion type: [place] artery Teller vs. transplanted heart: [place] heart Qualified Code(s): I25.118 - Atherosclerotic heart disease of [place] coronary artery with other forms of angina pectoris
[2023-12-30] MEDS ORDERED: FUROSEMIDE 40 MG/4 ML VIAL IV SCH (09:00)
[2023-12-30] MEDS: FUROSEMIDE INJ 20 MG/2 ML VIAL IV SCH (09:20)
--- NOTE | 2023-12-30 11:54 | Hospitalist Progress Note ---
Date of Service December 30, 2023 Assessment & Plan (1) Acute heart failure with preserved ejection fraction (HFpEF): Plan: Pt presents with what appears to be a heart failure syndrome. She denies any chest pain at this time, but has been consistently using nitroglycerin "to help with sleep." It is unclear if this may have been helping her shortness of breath in the setting of heart failure exacerbation, treating worsened, undisclosed chest pain, or something else. Initial HS trop is elevated which may be the result of demand ischemia, especially with a similar rise in LFTs noted up from her baseline (normal and last checked in Sep 2023) , which may o ccur from the fluid overloaded state. EKG is unchanged from prior except for new tachycardia. Troponin trended - up to 125 Statins are contraindicated given h/o MELAS. Metoprolol changed to succinate. hold amlodipine given known side effects of fluid retention and BP at goal currently. Lasix 40mg IV was given in ER, continue with 20 iv daily Cont low sodium diet, and daily weights. Repeat echo obtained - interval decline in LVEF at around 35% (formal report pending) when compared with prior echo in June 2023. Monitor on telemetry. Cardiology consulted (2) ASCVD (arteriosclerotic cardiovascular disease): Plan: Complex history of CAD, s/p LAD stent and subtotal occlusion of the RPDA branch of the RCA in 2019, not amenable to revascularization. Repeat cath in 2020 with stable findings. negative nuclear stress test in June 2023. Now with interval decline in LVEF. -chronic, recently noncompliant with ASA and metoprolol which were re-started. Metoprolol tartrate switch to succinate 50 mg daily. -not on statin due to history of MELAS. Compliant with PCSK9 inhib. -Once patient's volume status has improved, per cardiology - will consider repeat cardiac catheterization given history of CAD and interval decline in LVEF. -Isosorbide on hold. (3) Hypomagnesemia: Plan: some recent diarrhea reported which may be the cause here. Replete and monitor. Will obtain stool sample if diarrhea is present in next 48 hours. Per RN, had small normal stool today (4) Transaminitis: Plan: Likely related to fluid overload state. RUQ ultrasound obtained - FINDINGS: Pancreas: The pancreas demonstrates a normal echotexture. Liver: Unremarkable. No hepatic mass or marginal nodularity. Gallbladder: Surgically absent. CBD: 0.3 cm. Right kidney: No hydronephrosis. A right pleural effusion is incidentally noted. IMPRESSION: Unremarkable exam status post cholecystectomy. Cont. trend LFTs (5) MELAS (mitochondrial encephalopathy, lactic acidosis and stroke-like episodes): Plan: - statins contraindicated, h/o stroke with residual expressive and receptive deficits. She is very functional per her son with who she lives, including most IADLs. Hemiplegia reported but she has symmetric strength in both sides, and reportedly ambulates independently per son. Cont daily aspirin. PT/OT to assess. (6) Type 1 diabetes mellitus: Plan: chronic, uncontrolled (last A1C 7.8) with polyneuropathy and macular dege neration. Current A1C 7.7% cont basal bolus insulin during this admission. (7) HLD (hyperlipidemia): Plan: chronic, stable. She continues on Repatha injections. (8) Hypertension: Plan: chronic, at goal. Cont with plan noted above. Holding amlodipine. DVT proph: Lovenox Full Code which was confirmed with son on admission. 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 Dispo- to telemetry Admission and Anticipated Discharge Date Admission Date: December 29, 2023 Subjective Pt seen in follow up of CHF + Shortness of breath and edema At home reported feeling sick, having diarrhea, and was using nitro to help her with sleep. History of stroke, and difficulty with communication. Reportedly did not take her medications for several days. Cardiology also consulted Per RN, no diarrhea - has small formed stool today Pt is sitting up in bed in NAD. Denies chest pain, shortness of breath or abd. pain. Per RN pt ambulates to bathroom. Pt does not provide much of other hx. Review of Systems Review of Systems: All systems reviewed & are unremarkable except as noted in Subjective Physical Exam Physical Exam: CONSTITUTIONAL: WNWD F in NAD, +chronically ill appearing EYES: EOMI bilaterally, PERRL, no scleral icterus ENT: external ear and nose normal, oropharynx clear, MMM, lips are dry, +cochlear implant on the left NECK: supple RESPIRATORY: +crackles at bilateral bases and in anterior lungs bilaterally, no rales or wheezes CARDIOVASCULAR: rrr, S1 and 2 heard without murmurs, gallops or rubs, slight JVD, trace peripheral edema in lower extremities bilaterally to knees CHEST: inspection of chest normal GASTROINTESTINAL: soft, nontender, ND, no guarding, some abdominal bruising. MUSCULOSKELETAL: head is normocephalic and atraumatic, neck supple, normal palpation of chest wall without tenderness, moves extremities SKIN: warm and dry, no rashes NEUROLOGIC: PERRL, EOMI, no facial palsy, + dysarthria (at baseline). normal cognition (at her baseline), no tremor, moves extremities PSYCHIATRIC: alert cooperative. Able to follow commands. Euthymic mood, makes good eye contact Results & Data Results & Data Vital Signs (Past 12 Hours) Vital Signs Temp Pulse Pulse Resp BP Pulse Ox O2 Del Method 12/30/23 10:47 36.6 C 79 24 103/65 97 Room Air 12/30/23 08:50 102/66 12/30/23 08:00 73 12/30/23 08:00 Room Air 12/30/23 07:18 36.6 C 74 23 93/65 L 100 Room Air 12/30/23 03:00 72 32 H 88/68 L 96 Room Air 12/30/23 01:20 Room Air Laboratory Results 12/30/23 12/30/23 12/30/23 Range/Units 11:07 07:08 05:54 WBC 10.51 (4.8-10.8) K/ul RBC 4.95 (4.20-5.40) M/uL Hgb 13.7 (12.0-16.0) g/dl Hct 41.5 (37.0-47.0) % MCV 83.8 (80.0-100.0) fL MCH 27.7 (25.0-34.0) pg MCHC 33.0 (32.0-36.0) g/dL RDW Std Deviation 41.8 (36.4-46.3) fL RDW Coeff of Marj 13.7 (11.5-14.5) % Plt Count 298 (130-400) K/uL MPV 11.7 (9.4-12.4) fL Immature Gran % (Auto) % Neut % (Auto) % Lymph % (Auto) % Sandoval % (Auto) % Eos % (Auto) % Baso % (Auto) % Neut # (Auto) (1.40-6.50) K/uL Lymph # (Auto) (1.20-3.40) K/uL [place] # (Auto) (0.11-0.59) K/uL Eos # (Auto) (0.00-0.50) K/uL Baso # (Auto) (0.00-0.20) K/uL Immature Gran # (Auto) (0.01-0.20) K/uL PT (9.0-12.0) Seconds INR (0.9-1.1) APTT (21-31) Seconds PTT Ratio Sodium 136 (136-145) mmol/L Potassium 4.9 (3.5-5.1) mmol/L Chloride 101 (98-107) mmol/L Carbon Dioxide 22 (21-32) mmol/L Anion Gap 13 H (3-11) BUN 34 H (6-23) mg/dl Creatinine 1.28 H D (0.6-1.2) mg/dl Est Cr Clr Drug Dosing 33.7 ml/min Est GFR ( Amer) 50.1 ml/min Est GFR (Non-Af Amer) 43.2 ml/min BUN/Creatinine Ratio 26.6 H (10-20) Glucose 120 H (70-99(Fasting)) mg/dl POC Glucose 109 H 112 H (70-99) mg/dl Estimat Average Glucose 174 mg/dl Hemoglobin A1c 7.7 H (4.5-5.6) % Calcium 8.7 (8.6-10.3) mg/dl Magnesium 1.7 (1.7-2.4) mg/dl Total Bilirubin 1.3 H (0.2-1.0) mg/dl AST 103 H (13-39) U/L ALT 89 H (7-52) U/L Alkaline Phosphatase 80 (34-104) U/L Troponin I High Sens (0-14) pg/ml B-Natriuretic Peptide (0-100) pg/ml Total Protein 6.0 (6.0-8.3) gm/dl Albumin 3.8 (3.4-5.0) gm/dl Globulin 2.2 L (2.5-4.0) gm/dl Albumin/Globulin Ratio 1.7 (0.9-2) Urine Color Urine Appearance (Clear) Urine pH (4.5-7.5) Ur Specific [place] (1.000-1.030) Urine Protein (Negative) Urine Glucose (UA) (Negative) Urine Ketones (Negative) Urine Blood (Negative) Urine Nitrite (Negative) Urine Bilirubin (Negative) Urine Urobilinogen (Negative) Ur Leukocyte Esterase (Negative) Urine RBC (0-4) /hpf Urine WBC (0-5) /hpf Ur Epithelial Cells (0-5) /lpf Urine Bacteria (Negative) Hyaline Casts (0-5) /lpf 12/30/23 12/29/23 12/29/23 Range/Units 03:37 Unknown 22:28 WBC (4.8-10.8) K/ul RBC (4.20-5.40) M/uL Hgb (12.0-16.0) g/dl Hct (37.0-47.0) % MCV (80.0-100.0) fL MCH (25.0-34.0) pg MCHC (32.0-36.0) g/dL RDW Std Deviation (36.4-46.3) fL RDW Coeff of Marj (11.5-14.5) % Plt Count (130-400) K/uL MPV (9.4-12.4) fL Immature Gran % (Auto) % Neut % (Auto) % Lymph % (Auto) % Sandoval % (Auto) % Eos % (Auto) % Baso % (Auto) % Neut # (Auto) (1.40-6.50) K/uL Lymph # (Auto) (1.20-3.40) K/uL Sand[place] # (Auto) (0.11-0.59) K/uL Eos # (Auto) (0.00-0.50) K/uL Baso # (Auto) (0.00-0.20) K/uL Immature Gran # (Auto) (0.01-0.20) K/uL PT (9.0-12.0) Seconds INR (0.9-1.1) APTT (21-31) Seconds PTT Ratio Sodium (136-145) mmol/L Potassium (3.5-5.1) mmol/L Chloride (98-107) mmol/L Carbon Dioxide (21-32) mmol/L Anion Gap (3-11) BUN (6-23) mg/dl Creatinine (0.6-1.2) mg/dl Est Cr Clr Drug Dosing ml/min Est GFR ( Amer) ml/min Est GFR (Non-Af Amer) ml/min BUN/Creatinine Ratio (10-20) Glucose (70-99(Fasting)) mg/dl POC Glucose 71 (70-99) mg/dl Estimat Average Glucose mg/dl Hemoglobin A1c (4.5-5.6) % Calcium (8.6-10.3) mg/dl Magnesium (1.7-2.4) mg/dl Total Bilirubin (0.2-1.0) mg/dl AST (13-39) U/L ALT (7-52) U/L Alkaline Phosphatase (34-104) U/L Troponin I High Sens 125.4 H* (0-14) pg/ml B-Natriuretic Peptide (0-100) pg/ml Total Protein (6.0-8.3) gm/dl Albumin (3.4-5.0) gm/dl Globulin (2.5-4.0) gm/dl Albumin/Globulin Ratio (0.9-2) Urine Color Yellow Urine Appearance Clear (Clear) Urine pH 5.5 (4.5-7.5) Ur Specific [place] 1.020 (1.000-1.030) Urine Protein 1+ H (Negative) Urine Glucose (UA) Negative (Negative) Urine Ketones Negative (Negative) Urine Blood Trace-intact H (Negative) Urine Nitrite Negative (Negative) Urine Bilirubin Negative (Negative) Urine Urobilinogen Negative (Negative) Ur Leukocyte Esterase Negative (Negative) Urine RBC 0-4 (0-4) /hpf Urine WBC 0-5 (0-5) /hpf Ur Epithelial Cells 0-5 (0-5) /lpf Urine Bacteria Negative (Negative) Hyaline Casts 0-5 (0-5) /lpf 12/29/23 12/29/23 12/29/23 Range/Units 20:52 16:31 16:23 WBC (4.8-10.8) K/ul RBC (4.20-5.40) M/uL Hgb (12.0-16.0) g/dl Hct (37.0-47.0) % MCV (80.0-100.0) fL MCH (25.0-34.0) pg MCHC (32.0-36.0) g/dL RDW Std Deviation (36.4-46.3) fL RDW Coeff of Marj (11.5-14.5) % Plt Count (130-400) K/uL MPV (9.4-12.4) fL Immature Gran % (Auto) % Neut % (Auto) % Lymph % (Auto) % Sandoval % (Auto) % Eos % (Auto) % Baso % (Auto) % Neut # (Auto) (1.40-6.50) K/uL Lymph # (Auto) (1.20-3.40) K/uL [place] # (Auto) (0.11-0.59) K/uL Eos # (Auto) (0.00-0.50) K/uL Baso # (Auto) (0.00-0.20) K/uL Immature Gran # (Auto) (0.01-0.20) K/uL PT (9.0-12.0) Seconds INR (0.9-1.1) APTT (21-31) Seconds PTT Ratio Sodium (136-145) mmol/L Potassium (3.5-5.1) mmol/L Chloride (98-107) mmol/L Carbon Dioxide (21-32) mmol/L Anion Gap (3-11) BUN (6-23) mg/dl Creatinine (0.6-1.2) mg/dl Est Cr Clr Drug Dosing ml/min Est GFR ( Amer) ml/min Est GFR (Non-Af Amer) ml/min BUN/Creatinine Ratio (10-20) Glucose (70-99(Fasting)) mg/dl POC Glucose 113 H 125 H (70-99) mg/dl Estimat Average Glucose mg/dl Hemoglobin A1c (4.5-5.6) % Calcium (8.6-10.3) mg/dl Magnesium (1.7-2.4) mg/dl Total Bilirubin (0.2-1.0) mg/dl AST (13-39) U/L ALT (7-52) U/L Alkaline Phosphatase (34-104) U/L Troponin I High Sens 110.1 H* (0-14) pg/ml B-Natriuretic Peptide (0-100) pg/ml Total Protein (6.0-8.3) gm/dl Albumin (3.4-5.0) gm/dl Globulin (2.5-4.0) gm/dl Albumin/Globulin Ratio (0.9-2) Urine Color Urine Appearance (Clear) Urine pH (4.5-7.5) Ur Specific [place] (1.000-1.030) Urine Protein (Negative) Urine Glucose (UA) (Negative) Urine Ketones (Negative) Urine Blood (Negative) Urine Nitrite (Negative) Urine Bilirubin (Negative) Urine Urobilinogen (Negative) Ur Leukocyte Esterase (Negative) Urine RBC (0-4) /hpf Urine WBC (0-5) /hpf Ur Epithelial Cells (0-5) /lpf Urine Bacteria (Negative) Hyaline Casts (0-5) /lpf 12/29/23 Range/Units 12:41 WBC 10.34 (4.8-10.8) K/ul RBC 5.12 (4.20-5.40) M/uL Hgb 14.2 (12.0-16.0) g/dl Hct 43.8 (37.0-47.0) % MCV 85.5 (80.0-100.0) fL MCH 27.7 (25.0-34.0) pg MCHC 32.4 (32.0-36.0) g/dL RDW Std Deviation 41.7 (36.4-46.3) fL RDW Coeff of Marj 13.4 (11.5-14.5) % Plt Count 282 (130-400) K/uL MPV 11.4 (9.4-12.4) fL Immature Gran % (Auto) 0.3 % Neut % (Auto) 78.1 % Lymph % (Auto) 14.5 % Sandoval % (Auto) 5.8 % Eos % (Auto) 0.5 % Baso % (Auto) 0.8 % Neut # (Auto) 8.08 H (1.40-6.50) K/uL Lymph # (Auto) 1.50 (1.20-3.40) K/uL [place] # (Auto) 0.60 H (0.11-0.59) K/uL Eos # (Auto) 0.05 (0.00-0.50) K/uL Baso # (Auto) 0.08 (0.00-0.20) K/uL Immature Gran # (Auto) 0.03 (0.01-0.20) K/uL PT 16.1 H (9.0-12.0) Seconds INR 1.5 H (0.9-1.1) APTT 29 (21-31) Seconds PTT Ratio 1.0 Sodium 136 (136-145) mmol/L Potassium 4.4 (3.5-5.1) mmol/L Chloride 103 (98-107) mmol/L Carbon Dioxide 20 L (21-32) mmol/L Anion Gap 13 H (3-11) BUN 30 H (6-23) mg/dl Creatinine 0.86 (0.6-1.2) mg/dl Est Cr Clr Drug Dosing 58.9 ml/min Est GFR ( Amer) 81.0 ml/min Est GFR (Non-Af Amer) 69.9 ml/min BUN/Creatinine Ratio 34.9 H (10-20) Glucose 158 H (70-99(Fasting)) mg/dl POC Glucose (70-99) mg/dl Estimat Average Glucose mg/dl Hemoglobin A1c (4.5-5.6) % Calcium 9.1 (8.6-10.3) mg/dl Magnesium 1.6 L (1.7-2.4) mg/dl Total Bilirubin 1.1 H (0.2-1.0) mg/dl AST 71 H (13-39) U/L ALT 70 H (7-52) U/L Alkaline Phosphatase 65 (34-104) U/L Troponin I High Sens 120.4 H* (0-14) pg/ml B-Natriuretic Peptide 1431 H (0-100) pg/ml Total Protein 6.5 (6.0-8.3) gm/dl Albumin 4.0 (3.4-5.0) gm/dl Globulin 2.5 (2.5-4.0) gm/dl Albumin/Globulin Ratio 1.6 (0.9-2) Urine Color Urine Appearance (Clear) Urine pH (4.5-7.5) Ur Specific [place] (1.000-1.030) Urine Protein (Negative) Urine Glucose (UA) (Negative) Urine Ketones (Negative) Urine Blood (Negative) Urine Nitrite (Negative) Urine Bilirubin (Negative) Urine Urobilinogen (Negative) Ur Leukocyte Esterase (Negative) Urine RBC (0-4) /hpf Urine WBC (0-5) /hpf Ur Epithelial Cells (0-5) /lpf Urine Bacteria (Negative) Hyaline Casts (0-5) /lpf Medications Administered Current Inpatient Medications Acetaminophen (Acetaminophen 325 Mg Tab) 650 mg PO Q4H PRN PRN Reason: Pain or Fever Stop: 01/28/24 16:40 Aspirin (Aspirin 81 Mg Ectab) 81 mg PO QAM CLEMENTINA Stop: 01/29/24 08:59 Last Admin: 12/30/23 08:11 Dose: 81 mg Dextrose (Dextrose 50% 50 Ml Syringe) 25 - 50 ml IV UD PRN; Protocol PRN Reason: Hypoglycemia Protocol Stop: 01/28/24 16:40 Enoxaparin Sodium (Enoxaparin Inj 40 Mg/0.4 Ml Syr) 40 mg SQ Q24H CLEMENTINA Stop: 01/28/24 16:59 Last Admin: 12/29/23 17:43 Dose: 40 mg Furosemide (Furosemide Inj 20 Mg/2 Ml Vial) 20 mg IV DAILY CLEMENTINA Stop: 01/29/24 08:59 Last Admin: 12/30/23 09:20 Dose: 20 mg Glucagon (Glucagon For Inj 1 Mg Vial) 1 mg SQ UD PRN; Protocol PRN Reason: Hypoglycemia Protocol Stop: 01/28/24 16:40 Glucose (Glucose 10 Tab/Tube) 4 - 8 tab PO UD PRN; Protocol PRN Reason: Hypoglycemia Treatment Stop: 01/28/24 16:40 Glucose (Glucose 40% Gel 15 Gm Tube) 15 - 30 gm PO UD PRN; Protocol PRN Reason: Hypoglycemia Protocol Stop: 01/28/24 16:40 Insulin Aspart (Insulin Aspart Per Unit Charge) 0 units SC ACHS CLEMENTINA Stop: 01/28/24 16:40 Last Admin: 12/30/23 07:53 Dose: Not Given Insulin Glargine (Lantus Per Unit Charge) 10 units SQ BID CLEMENTINA Stop: 01/28/24 20:59 Last Admin: 12/30/23 08:11 Dose: 10 units Metoprolol Tartrate (Metoprolol Tartrate 50 Mg Tab) 50 mg PO BID CLEMENTINA Stop: 01/28/24 16:59 Last Admin: 12/30/23 09:19 Dose: 50 mg Miscellaneous (Carbohydrates For Hypoglycemia ) 15 - 30 gm PO UD PRN PRN Reason: Hypoglycemia Protocol Stop: 01/28/24 16:40 Nitroglycerin (Nitroglycerin Sl 0.4 Mg/Tab Tab) 0.4 mg SL UD PRN PRN Reason: chest pain Stop: 01/28/24 16:40 Polyethylene Glycol (Polyethylene (Miralax) 17 Gm Pack) 17 gm PO DAILY PRN PRN Reason: Constipation Stop: 01/28/24 16:40
[2023-12-30] MEDS: CARBOHYDRATES FOR HYPOGLYCEMIA PO PRN (20:28)
[2023-12-30] MEDS: GLUCOSE 10 TAB/TUBE PO PRN (21:15)
[2023-12-30] MEDS: DEXTROSE 50% 50 ML SYRINGE IV PRN (21:36)
[2023-12-31] MEDS: ONDANSETRON INJ 2 MG/ML 2 ML VIAL IV STA (02:46)
[2023-12-31 06:38] LABS: Hematocrit (blood only) 42.1 % (37.0-47.0); Hemoglobin 13.4 g/dl (12.0-16.0); Mean Corpuscular Hemoglobin 26.9 pg (25.0-34.0); Mean Corpuscular Hgb Conc 31.8 g/dL (32.0-36.0); Mean Corpuscular Volume 84.4 fL (80.0-100.0); Mean Platelet Volume 11.8 fL (9.4-12.4); Platelet Count 282 K/uL (130-400); RDW Coefficient of Variation 13.7 % (11.5-14.5); RDW Standard Deviation 41.9 fL (36.4-46.3); Red Blood Count 4.99 M/uL (4.20-5.40); White Blood Count 10.46 K/ul (4.8-10.8)
[2023-12-31 06:54] LABS: BUN Creatinine Ratio 27.2 (10-20); Calcium 8.4 mg/dl (8.6-10.3); Est GFR (African American) 33.2 ml/min; Est GFR (Non-African American) 28.6 ml/min; Magnesium 1.8 mg/dl (1.7-2.4); Phosphorus 6.2 mg/dl (2.5-4.9); Potassium 4.8 mmol/L (3.5-5.1)
--- NOTE | 2023-12-31 09:50 | XRay Report ---
XR chest 1V portable HISTORY: 68 years-old Female CHF; pleural effusions acute shortness of breath COMPARISON: 12/29/2023 TECHNIQUE: AP view of the chest FINDINGS: Cardiac silhouette is enlarged. Atherosclerosis of the aorta. No pneumothorax. Small pleural effusion s with mild bibasilar consolidation. Pulmonary vascular congestion with interstitial coarsening. Dege nerative changes of the shoulders and spine. IMPRESSION: 1. Cardiomegaly with unchanged pulmonary edema. 2. Small pleural effusions with stable mild bibasilar opacities favoring atelectasis. ACT 112: Negative or not required by law. The above report was generated using voice recognition software. It may contain grammatical, syntax o r spelling errors. Electronically signed by: Pk Holt M.D. 12/31/2023 9:49 AM
--- NOTE | 2023-12-31 10:59 | Cardiology Progress Note ---
Date of Service December 31, 2023 Assessment & Plan (1) Acute on chronic heart failure with reduced ejection fraction and diastolic dysfunction: (2) CAD (coronary artery disease): Plan Patient admitted with signs/symptoms of acute CHF with evidence of volume overload on exam, hypoxia, b/l pleural effusions. Repeat echo this admission with interval decline in LVEF at around 35% when compared with prior echo in June 2023. She has a complex history of CAD, s/p LAD stent and subtotal occlusion of the RPDA branch of the RCA in 2019, not amenable to revascularization. Repeat cath in 2020 with stable findings. Negative nuclear stress test in June 2023. Due to intermittent chest pain in the fall, she was started on isosorbide and scheduled for repeat nuclear study, but this was not yet done (was scheduled for today). Now with interval decline in LVEF. She reports her chest pain had resolved with initiation of isosorbide. She was taking SL nitro over the last 10 days, but implies this was due to SOB/chest tightness when trying to lay supine, likely due to b/l pleural effusions. Troponin elevation on admission consistent with CHF, demand ischemia in setting of volume overload/hypoxia. Recommend ongoing treatment with furosemide 20 mg IV today. She received furosemide IV 40 mg late yesterday which resulted in mild hypotension. Now improved. Good urine outputs. Monitor I+O's. Daily weight with standing scale. Continue ASA. Patient not on statin due to history of MELAS. Compliant with PCSK9 inhib. Once patient's volume status has improved, will consider repeat cardiac catheterization given history of CAD and interval decline in LVEF. Will slowly initiate GDMT given reduced EF. Stop metoprolol tartrate and transition to metoprolol succinate 25 mg daily given low BP Titrate as tolerated. Consider LAUREN/ARB vs Entresto. however, given need for ongoing diuresis and borderline hypotension, will not initiate. Isosorbide on hold. 12/31/23: Interval improvement of patient's subjective complaints of SOB/orthopnea Still with b/l pleural effusions on chest xray this morning. Conversational dyspnea noted. unfortunately her creatinine misael to 1.8 this morning, prompting the need to hold diuretics. BP borderline low. Transition metoprolol tartrate 50 mg BID to lower dose metoprolol succinate 25 mg - 1/2 tab BID, starting tonight. Unable to initiate LAUREN/ARB vs Entresto given hypotension. Isosorbide also on hold due to hypotension. Continue ASA Not statin candidate. Takes PCSK9 inhib at home. Long discussion today with patient regarding echo findings. Consider cardiac cath once volume status and creatinine improves. She does not feel she wants to stay for this. She wishes to discuss further testing with Dr. Thomas, her primary teasel setter. Consider rescheduling nuclear stress test vs cath. I have hesitancies regarding her going home yet with high creatinine and residual b/l pleural effusions. Could consider US to quantify fluid. Recommend 2 step as well prior to discharge. Case discussed with Dr. Sampson I spent a total of 35 minutes on the date of service in preparation, delivery, and documentation of the care provided to this patient, excluding any time spent in the performance of separately billed services. Quynh Marrero PA-C Department of Cardiology, [facility] This chart was completed in part utilizing Speech Voice Recognition Software. Grammatical errors, random word insertions, pronoun errors, and incomplete sentences are an occasional consequence of this system due to software limitations, ambient noise, and hardware issues. Any formal questions or concerns about the content, text, or information contained within the body of this dictation should be directly addressed to the provider for clarification. Admission and Anticipated Discharge Date Admission Date: December 29, 2023 Supervising Physician Co-Signing Physician Notes I have reviewed the advance practitioner's documentation, and I agree with, and take responsibility for the plan of care. 68-year-old female admitted secondary to acute decompensated heart failure. Ec hocardiogram demonstrating interval decline in LV systolic function. Patient diuresed, however, creatinine trending upward. Diuretics placed on hold today. Bilateral pleural effusions noted on chest x-ray. Denies orthopnea or PND. Conversational dyspnea noted. Edema unchanged. PE: VSS with borderline hypotension. General: NAD, awake alert, oriented x 3. Heart: Regular rhythm, normal S1-S2. No murmur. Lungs: Diminished breath sounds at the bases bilateral. Abdomen: Soft, nontender, nondistended, normal bowel sounds. Extremities: 1+ bilateral pretibial edema. A/P: 68-year-old female admitted with acute decompensated heart failure. Echocardiogram reveals decline in LV systolic function with LVEF 35-40%. Diuretic therapy on hold due to acute renal insufficiency. Repeat BMP in AM. Unable to add LAUREN/ARB/Aldactone/Entresto currently. Monitor fluid balance, daily weight, GFR, and electrolytes. Recommend pulmonary evaluation to consider thoracentesis. Patient agreeable. I spent a total of 25 minutes on the date of service in preparation, delivery, and documentation of the care provided to this patient, excluding any time spent in the performance of separately billed services. Subjective Patient resting in bed comfortably. Adamant about wanting to go home. Denies SOB at rest or with ambulation. However she seems dyspneic with conversation. No significant hypoxia on room air. Creatinine trended upward and diuretics held this morning. No edema. No orthopnea, PND or edema Review of Systems Review of Systems: All systems reviewed & are unremarkable except as noted in HPI & below Physical Exam Constitutional: WD/WN, vitals as above no acute distress Neck: normal visual inspection Respiratory: no respiratory distress Auscultation: + diminished lung sounds Cardiovascular: Rate/Rhythm: regular rate and regular rhythm Heart Sounds: + murmur (II/ at apex) Extremities: no edema Gastrointestinal (Abdomen): normal bowel sounds, soft, nontender, no hepatosplenomegaly Neurologic: Speech / Cognition: + expressive aphasia Results & Data Vital Signs (Past 12 Hours) Vital Signs Temp Pulse Pulse Resp BP Pulse Ox O2 Del Method 12/31/23 10:45 36.5 C 81 19 94/62 L 93 Room Air 12/31/23 09:18 110/68 12/31/23 08:00 75 12/31/23 08:00 Room Air 12/31/23 07:13 36.4 C L 75 22 96/73 L 95 Room Air 12/31/23 02:59 36.5 C 70 20 97/69 L 94 Room Air 12/30/23 23:17 36.6 C 76 20 116/89 94 Room Air Laboratory Results CBC 12/31/23 Range/Units 06:03 WBC 10.46 (4.8-10.8) K/ul RBC 4.99 (4.20-5.40) M/uL Hgb 13.4 (12.0-16.0) g/dl Hct 42.1 (37.0-47.0) % Plt Count 282 (130-400) K/uL Comprehensive Metabolic Panel 12/31/23 Range/Units 06:03 Sodium 133 L (136-145) mmol/L Potassium 4.8 (3.5-5.1) mmol/L Chloride 99 (98-107) mmol/L Carbon Dioxide 22 (21-32) mmol/L BUN 49 H (6-23) mg/dl Creatinine 1.80 H D (0.6-1.2) mg/dl Glucose 147 H (70-99(Fasting)) mg/dl Calcium 8.4 L (8.6-10.3) mg/dl Intake and Output 12/30/23 12/31/23 12/31/23 22:59 06:59 14:59 Intake Total 300 / 740 Output Total 150 / 350 150 / 350 Balance 150 / 390 -150 / 390 Intake: Oral 300 / 740 Output: Urine Amount (Catheter) 150 / 350 150 / 350 Hess/Indwelling 150 / 350 150 / 350 Other: Other Intake Source Sips Weight 55.7 kg Weight Measurement Method Built in [facility] Diagnostic Findings Telemetry reviewed: Normal sinus rhythm in the 70s to 80s. No arrhythmias. Chest x-ray reviewed today personally Bilateral pleural effusions noted Echo results reviewed dated 12/29/2023: LV systolic function is moderately reduced. Ejection fraction 35 to 40%. Severe hypokinesis to akinesis of the basal and mid inferior wall and inferoseptum. Otherwise mild to moderate diffuse hypokinesis. RV is normal in size. Moderate to severe MR. Mild TR. Moderate size left pleural effusion. Medications Administered Current Inpatient Medications Acetaminophen (Acetaminophen 325 Mg Tab) 650 mg PO Q4H PRN PRN Reason: Pain or Fever Stop: 01/28/24 16:40 Aspirin (Aspirin 81 Mg Ectab) 81 mg PO QAM [facility] Stop: 01/29/24 08:59 Last Admin: 12/31/23 08:01 Dose: 81 mg Dextrose (Dextrose 50% 50 Ml Syringe) 25 - 50 ml IV UD PRN; Protocol PRN Reason: Hypoglycemia Protocol Stop: 01/28/24 16:40 Last Admin: 12/30/23 21:36 Dose: 25 ml Enoxaparin Sodium (Enoxaparin Inj 40 Mg/0.4 Ml Syr) 40 mg SQ Q24H [facility] Stop: 01/28/24 16:59 Last Admin: 12/30/23 17:35 Dose: 40 mg Furosemide (Furosemide Inj 20 Mg/2 Ml Vial) 20 mg IV DAILY [facility] Stop: 01/29/24 08:59 Last Admin: 12/30/23 09:20 Dose: 20 mg Glucagon (Glucagon For Inj 1 Mg Vial) 1 mg SQ UD PRN; Protocol PRN Reason: Hypoglycemia Protocol Stop: 01/28/24 16:40 Glucose (Glucose 10 Tab/Tube) 4 - 8 tab PO UD PRN; Protocol PRN Reason: Hypoglycemia Treatment Stop: 01/28/24 16:40 Last Admin: 12/30/23 21:15 Dose: 4 tab Glucose (Glucose 40% Gel 15 Gm Tube) 15 - 30 gm PO UD PRN; Protocol PRN Reason: Hypoglycemia Protocol Stop: 01/28/24 16:40 Insulin Aspart (Insulin Aspart Per Unit Charge) 0 units SC ACHS [facility] Stop: 01/28/24 16:40 Last Admin: 12/31/23 08:01 Dose: Not Given Insulin Glargine (Lantus Per Unit Charge) 10 units SQ BID [facility] Stop: 01/28/24 20:59 Last Admin: 12/31/23 08:00 Dose: 10 units Metoprolol Tartrate (Metoprolol Tartrate 50 Mg Tab) 50 mg PO BID [facility] Stop: 01/28/24 16:59 Last Admin: 12/31/23 09:18 Dose: 50 mg Miscellaneous (Carbohydrates For Hypoglycemia ) 15 - 30 gm PO UD PRN PRN Reason: Hypoglycemia Protocol Stop: 01/28/24 16:40 Last Admin: 12/30/23 20:50 Dose: 15 gm Nitroglycerin (Nitroglycerin Sl 0.4 Mg/Tab Tab) 0.4 mg SL UD PRN PRN Reason: chest pain Stop: 01/28/24 16:40 Polyethylene Glycol (Polyethylene (Miralax) 17 Gm Pack) 17 gm PO DAILY PRN PRN Reason: Constipation Stop: 01/28/24 16:40 (2) CAD (coronary artery disease) Associated angina: with stable angina Coronary Disease-Associated Artery/Lesion type: rincon artery [place] vs. transplanted heart: rincon heart Qualified Code(s): I25.118 - Atherosclerotic heart disease of rincon coronary artery with other forms of angina pectoris
--- NOTE | 2023-12-31 14:42 | Pulmonary Consultation ---
Date of Consultation December 31, 2023 Assessment & Plan (1) Acute on chronic heart failure with reduced ejection fraction and diastolic dysfunction: (2) Bilateral pleural effusion: Plan Patient with acute decompensated systolic CHF which is refractory to diuresis. She has moderate sized left and right pleural effusions. Patient and son are both willing to give consent for thoracentesis. Order placed for ultrasound- guided thoracentesis by radiology to be performed tomorrow. Pleural fluid studies will be sent to further characterize the effusions. History of Present Illness Reason for Consultation: Pleural effusions Attending Physician: Garrison Candelario MD History of Present Illness 68-year-old female with a past medical history of CAD, ischemic cardiomyopathy and prior CVA with residual expressive/receptive aphasia who presented to the hospital due to chest discomfort and shortness of breath. Pulmonary was consulted due to bilateral pleural effusions noted on chest x-ray and echocardiogram. Patient notes that she is having shortness of breath with activity. Her oxygen saturations have remained in the 90s on room air. She denies any cough. She denies any fevers, chills or night sweats. History is somewhat difficult to obtain from the patient given her underlying receptive and expressive aphasia. I also called the patient's son and discussed with him over the phone. He indicates that he would be willing to give consent for thoracentesis. Allergies Allergy/AdvReac Type Severity Reaction Status Date / Time atorvastatin AdvReac Intermediate myalgias, Verified 08/05/23 16:28 dysarthria prednisone AdvReac Intermediate metabolic-h Verified 08/05/23 16:28 yperglycemi a Home Medications Medication Instructions Recorded Confirmed Type insulin aspart U-100 100 unit/mL 6 unit subcut TIDM 05/14/20 12/29/23 History (3 mL) subcutaneous pen (Novolog FlexPen U-100 Insulin aspart) insulin glargine 100 unit/mL (3 20 unit subcut HS 05/14/20 12/29/23 History mL) subcutaneous pen (Lantus Solostar U-100 Insulin) vit A 12,500 unit-zinc 12.5 1 cap PO QAM 05/14/20 12/29/23 History [id number]-herb #261 capsule (Lipotriad Vision Support) aspirin 81 mg tablet,delayed 81 mg PO QAM #90 tabs 05/17/20 12/29/23 Rx release nitroglycerin 0.4 mg sublingual 0.4 mg sublingual UD PRN chest 05/17/20 12/29/23 Rx tablet (Nitrostat) pain #30 tabs amlodipine 2.5 mg tablet 2.5 mg PO DAILY 08/10/21 12/29/23 History evolocumab 140 mg/mL subcutaneous 140 mg subcut .[id number] 08/10/21 12/29/23 History pen injector (Jaime Nicholson) coenzyme Q10 100 mg capsule 100 mg PO DAILY 01/14/22 12/29/23 History (CoQ-10) metoprolol tartrate 50 mg tablet 50 mg PO BID #60 tabs 07/16/23 12/29/23 Rx Patient History Medical History (Updated 12/31/23 @ 14:39 by Jonah Cancino MD) Bilateral pleural effusion Unspecified hereditary retinal dystrophy Bilateral sensorineural hearing loss Bilateral myopia 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 Degeneration of cervical intervertebral disc History of TMJ disorder Hemiplegia Diabetic polyneuropathy Aphasia as late effect of cerebrovascular accident CAD (coronary artery disease) Statin intolerance Atherosclerosis of coronary artery Macular degeneration Mnire's disease Schatzki's ring MELAS (mitochondrial encephalopathy, lactic acidosis and stroke-like episodes) HLD (hyperlipidemia) Type 1 diabetes mellitus Hypertension Surgical History S/P coronary artery stent placement History of heart artery stent History of cochlear implant Left in 2014 History of left heart catheterization 07/2019 which revealed 30% proximal LAD otherwise clean coronaries History of colonoscopy with polypectomy History of cholecystectomy History of hysterectomy Family History Mother Coronary heart disease, Onset Age: 70 Father Coronary heart disease, Onset Age: 50 Daughter MELAS (mitochondrial encephalopathy, lactic acidosis and stroke-like episodes) Social History Smoking Status: Never smoker Tobacco Type: Cigarettes Smoking End Date: quit 1991-smoked intermittently since age 21; Second Hand Exposure: No; Do You Dip or Chew Tobacco: No; Preferred Language: Slovenian Communication Ability: Impaired Communication Ability Comment: Cochlear implant, communication difficult at times Hearing Ability: Cochlear Implant Farm Operator Required: No Beliefs That Will Affect Care: None marital status: Current Living Situation: Family Current Living Situation Comment: per patient, son lives with her current occupational status: retired and disabled How many Children do You have: 2 Feels Safe at Home: Yes Safety Concerns: Feels Safe At This Time Assistive Devices: Cane, Glasses and Other Assistive Devices Comment: cochlear implant Review of Systems Review of Systems: All systems reviewed & are unremarkable except as noted in HPI & below Physical Exam Constitutional: WD/WN, vitals as above no acute distress Neck: normal visual inspection Respiratory: no respiratory distress Auscultation: + diminished lung sounds Cardiovascular: Rate/Rhythm: regular rate and regular rhythm Heart Sounds: + murmur (II/ at apex) Extremities: no edema Gastrointestinal (Abdomen): normal bowel sounds, soft, nontender, no hepatosplenomegaly Neurologic: Speech / Cognition: + expressive aphasia Results & Data Results & Data Vital Signs (Past 12 Hours) Vital Signs Temp Pulse Pulse Resp BP Pulse Ox O2 Del Method 12/31/23 10:45 36.5 C 81 19 94/62 L 93 Room Air 12/31/23 09:18 110/68 12/31/23 08:00 75 12/31/23 08:00 Room Air 12/31/23 07:13 36.4 C L 75 22 96/73 L 95 Room Air 12/31/23 02:59 36.5 C 70 20 97/69 L 94 Room Air PG Care Time/CCT Total # of Minutes Spent Total Time Spent with Patient: Total time spent is greater than 50% in coordination of care (as documented) at patient's floor/unit and/or counseling patient: Coding Level of Care Code 26163 INT INP/OBS CARE 2/55MIN Diagnoses Acute on chronic heart failure with reduced ejection fraction and diastolic dysfunction I50.43 Bilateral pleural effusion J90
--- NOTE | 2023-12-31 17:43 | Hospitalist Progress Note ---
Date of Service December 31, 2023 Assessment & Plan (1) Acute heart failure with preserved ejection fraction (HFpEF): Plan: Pt presents with what appears to be a heart failure syndrome. She denies any chest pain at this time, but has been consistently using nitroglycerin "to help with sleep." It is unclear if this may have been helping her shortness of breath in the setting of heart failure exacerbation, treating worsened, undisclosed chest pain, or something else. Initial HS trop is elevated which may be the result of demand ischemia, especially with a similar rise in LFTs noted up from her baseline (normal and last checked in Sep 2023) , which may o ccur from the fluid overloaded state. EKG is unchanged from prior except for new tachycardia. Troponin trended - up to 125 Statins are contraindicated given h/o MELAS. Metoprolol changed to succinate. hold amlodipine given known side effects of fluid retention and BP at goal currently. Lasix 40mg IV was given in ER, continued with 20 iv daily Cont low sodium diet, and daily weights. Repeat echo obtained - interval decline in LVEF at around 35% (formal report pending) when compared with prior echo in June 2023. Monitor on telemetry. Cardiology consulted - Cr elevated. holding diuresis now. Pulm. consulted for thoracentesis. Plan for thoracentesis tmrw. (2) ASCVD (arteriosclerotic cardiovascular disease): Plan: Complex history of CAD, s/p LAD stent and subtotal occlusion of the RPDA branch of the RCA in 2019, not amenable to revascularization. Repeat cath in 2020 with stable findings. negative nuclear stress test in June 2023. Now with interval decline in LVEF. -chronic, recently noncompliant with ASA and metoprolol which were re-started. Metoprolol tartrate switch to succinate 50 mg daily. -not on statin due to history of MELAS. Compliant with PCSK9 inhib. -Once patient's volume status has improved, per cardiology - will consider repeat cardiac catheterization given history of CAD and interval decline in LVEF. -Isosorbide on hold. (3) Hypomagnesemia: Plan: some recent diarrhea reported which may be the cause here. Replete and monitor. Will obtain stool sample if diarrhea is present in next 48 hours. Per RN, had small normal stool (4) Transaminitis: Plan: Likely related to fluid overload state. RUQ ultrasound obtained - FINDINGS: Pancreas: The pancreas demonstrates a normal echotexture. Liver: Unremarkable. No hepatic mass or marginal nodularity. Gallbladder: Surgically absent. CBD: 0.3 cm. Right kidney: No hydronephrosis. A right pleural effusion is incidentally noted. IMPRESSION: Unremarkable exam status post cholecystectomy. Cont. trend LFTs (5) MELAS (mitochondrial encephalopathy, lactic acidosis and stroke-like episodes): Plan: - statins contraindicated, h/o stroke with residual expressive and receptive deficits. She is very functional per her son with who she lives, including most IADLs. Hemiplegia reported but she has symmetric strength in both sides, and reportedly ambulates independently per son. Cont daily aspirin. PT/OT to assess. (6) Type 1 diabetes mellitus: Plan: chronic, uncontrolled (last A1C 7.8) with polyneuropathy and macular degeneration. Current A1C 7.7% cont basal bolus insulin during this admission. (7) HLD (hyperlipidemia): Plan: chronic, stable. She continues on Repatha injections. (8) Hypertension: Plan: chronic, at goal. Cont with plan noted above. Holding amlodipine. DVT proph: Lovenox Full Code which was confirmed with son on admission. He reports that mother doesn't want any fdc life support. Dispo- to telemetry Admission and Anticipated Discharge Date Admission Date: December 29, 2023 Subjective Pt seen in follow up of CHF + Shortness of breath and edema At home reported feeling sick, having diarrhea, and was using nitro to help her with sleep. History of stroke, and difficulty with communication. Reportedly did not take her medications for several days. Cardiology and pulm consulted. pulm consulted for pl. effusions - plan for thoracentesis tmrw. Cr elevated , holding diuretics Pt is sitting up in bed in NAD. Denies chest pain, shortness of breath or abd. pain at this time. Pt does not provide much of other hx. Review of Systems Review of Systems: All systems reviewed & are unremarkable except as noted in Subjective Physical Exam Physical Exam: CONSTITUTIONAL: WNWD F in NAD, +chronically ill appearing EYES: EOMI bilaterally, PERRL, no scleral icterus ENT: external ear and nose normal, oropharynx clear, MMM, lips are dry, +cochlear implant on the left NECK: supple RESPIRATORY: +crackles at bilateral bases and in anterior lungs bilaterally, no rales or wheezes CARDIOVASCULAR: rrr, S1 and 2 heard without murmurs, gallops or rubs, slight JVD, trace peripheral edema in lower extremities bilaterally to knees CHEST: inspection of chest normal GASTROINTESTINAL: soft, nontender, ND, no guarding, some abdominal bruising. MUSCULOSKELETAL: head is normocephalic and atraumatic, neck supple, normal palpation of chest wall without tenderness, moves extremities SKIN: warm and dry, no rashes NEUROLOGIC: PERRL, EOMI, no facial palsy, + dysarthria (at baseline). normal cognition (at her baseline), no tremor, moves extremities PSYCHIATRIC: alert cooperative. Able to follow commands. Euthymic mood, makes good eye contact Results & Data Results & Data Vital Signs (Past 12 Hours) Vital Signs Temp Pulse Pulse Resp BP Pulse Ox O2 Del Method 12/31/23 15:55 36.4 C L 75 18 119/65 95 Room Air 12/31/23 15:00 77 12/31/23 10:45 36.5 C 81 19 94/62 L 93 Room Air 12/31/23 09:18 110/68 12/31/23 08:00 75 12/31/23 08:00 Room Air 12/31/23 07:13 36.4 C L 75 22 96/73 L 95 Room Air Laboratory Results 12/31/23 12/31/23 12/31/23 Range/Units 16:26 11:18 07:15 WBC (4.8-10.8) K/ul RBC (4.20-5.40) M/uL Hgb (12.0-16.0) g/dl Hct (37.0-47.0) % MCV (80.0-100.0) fL MCH (25.0-34.0) pg MCHC (32.0-36.0) g/dL RDW Std Deviation (36.4-46.3) fL RDW Coeff of Marj (11.5-14.5) % Plt Count (130-400) K/uL MPV (9.4-12.4) fL Sodium (136-145) mmol/L Potassium (3.5-5.1) mmol/L Chloride (98-107) mmol/L Carbon Dioxide (21-32) mmol/L Anion Gap (3-11) BUN (6-23) mg/dl Creatinine (0.6-1.2) mg/dl Est Cr Clr Drug Dosing ml/min Est GFR ( Amer) ml/min Est GFR (Non-Af Amer) ml/min BUN/Creatinine Ratio (10-20) Glucose (70-99(Fasting)) mg/dl POC Glucose 94 142 H 136 H (70-99) mg/dl Calcium (8.6-10.3) mg/dl Phosphorus (2.5-4.9) mg/dl Magnesium (1.7-2.4) mg/dl 12/31/23 12/31/23 12/30/23 Range/Units 06:03 02:45 21:58 WBC 10.46 (4.8-10.8) K/ul RBC 4.99 (4.20-5.40) M/uL Hgb 13.4 (12.0-16.0) g/dl Hct 42.1 (37.0-47.0) % MCV 84.4 (80.0-100.0) fL MCH 26.9 (25.0-34.0) pg MCHC 31.8 L (32.0-36.0) g/dL RDW Std Deviation 41.9 (36.4-46.3) fL RDW Coeff of Marj 13.7 (11.5-14.5) % Plt Count 282 (130-400) K/uL MPV 11.8 (9.4-12.4) fL Sodium 133 L (136-145) mmol/L Potassium 4.8 (3.5-5.1) mmol/L Chloride 99 (98-107) mmol/L Carbon Dioxide 22 (21-32) mmol/L Anion Gap 12 H (3-11) BUN 49 H (6-23) mg/dl Creatinine 1.80 H D (0.6-1.2) mg/dl Est Cr Clr Drug Dosing 24.0 ml/min Est GFR ( Amer) 33.2 ml/min Est GFR (Non-Af Amer) 28.6 ml/min BUN/Creatinine Ratio 27.2 H (10-20) Glucose 147 H (70-99(Fasting)) mg/dl POC Glucose 153 H 168 H (70-99) mg/dl Calcium 8.4 L (8.6-10.3) mg/dl Phosphorus 6.2 H (2.5-4.9) mg/dl Magnesium 1.8 (1.7-2.4) mg/dl 12/30/23 12/30/23 12/30/23 Range/Units 21:07 20:46 20:23 WBC (4.8-10.8) K/ul RBC (4.20-5.40) M/uL Hgb (12.0-16.0) g/dl Hct (37.0-47.0) % MCV (80.0-100.0) fL MCH (25.0-34.0) pg MCHC (32.0-36.0) g/dL RDW Std Deviation (36.4-46.3) fL RDW Coeff of Marj (11.5-14.5) % Plt Count (130-400) K/uL MPV (9.4-12.4) fL Sodium (136-145) mmol/L Potassium (3.5-5.1) mmol/L Chloride (98-107) mmol/L Carbon Dioxide (21-32) mmol/L Anion Gap (3-11) BUN (6-23) mg/dl Creatinine (0.6-1.2) mg/dl Est Cr Clr Drug Dosing ml/min Est GFR ( Amer) ml/min Est GFR (Non-Af Amer) ml/min BUN/Creatinine Ratio (10-20) Glucose (70-99(Fasting)) mg/dl POC Glucose 69 L* 66 L* 69 L* (70-99) mg/dl Calcium (8.6-10.3) mg/dl Phosphorus (2.5-4.9) mg/dl Magnesium (1.7-2.4) mg/dl Medications Administered Current Inpatient Medications Acetaminophen (Acetaminophen 325 Mg Tab) 650 mg PO Q4H PRN PRN Reason: Pain or Fever Stop: 01/28/24 16:40 Aspirin (Aspirin 81 Mg Ectab) [facility] [place] Stop: 01/29/24 08:59 Last Admin: 12/31/23 08:01 Dose: 81 mg Dextrose (Dextrose 50% 50 Ml Syringe) 25 - 50 ml IV UD PRN; Protocol PRN Reason: Hypoglycemia Protocol Stop: 01/28/24 16:40 Last Admin: 12/30/23 21:36 Dose: 25 ml Enoxaparin Sodium (Enoxaparin Inj 30 Mg/0.3 Ml Syr) 30 mg SQ Q24H [place] Stop: 01/30/24 17:59 Furosemide (Furosemide Inj 20 Mg/2 Ml Vial) 20 mg IV DAILY [place] Stop: 01/29/24 08:59 Last Admin: 12/30/23 09:20 Dose: 20 mg Glucagon (Glucagon For Inj 1 Mg Vial) 1 mg SQ UD PRN; Protocol PRN Reason: Hypoglycemia Protocol Stop: 01/28/24 16:40 Glucose (Glucose 10 Tab/Tube) 4 - 8 tab PO UD PRN; Protocol PRN Reason: Hypoglycemia Treatment Stop: 01/28/24 16:40 Last Admin: 12/30/23 21:15 Dose: 4 tab Glucose (Glucose 40% Gel 15 Gm Tube) 15 - 30 gm PO UD PRN; Protocol PRN Reason: Hypoglycemia Protocol Stop: 01/28/24 16:40 Insulin Aspart (Insulin Aspart Per Unit Charge) 0 units SC ACHS [place] Stop: 01/28/24 16:40 Last Admin: 12/31/23 17:30 Dose: Not Given Insulin Glargine (Lantus Per Unit Charge) 10 units SQ BID [place] Stop: 01/28/24 20:59 Last Admin: 12/31/23 08:00 Dose: 10 units Metoprolol Succinate (Metoprolol Succ 25mg Ext Rel Tab) 12.5 mg PO BID [place] Stop: 01/30/24 20:59 Miscellaneous (Carbohydrates For Hypoglycemia ) 15 - 30 gm PO UD PRN PRN Reason: Hypoglycemia Protocol Stop: 01/28/24 16:40 Last Admin: 12/30/23 20:50 Dose: 15 gm Nitroglycerin (Nitroglycerin Sl 0.4 Mg/Tab Tab) 0.4 mg SL UD PRN PRN Reason: chest pain Stop: 01/28/24 16:40 Polyethylene Glycol (Polyethylene (Miralax) 17 Gm Pack) 17 gm PO DAILY PRN PRN Reason: Constipation Stop: 01/28/24 16:40
[2023-12-31] MEDS: ENOXAPARIN INJ 30 MG/0.3 ML SYR SQ SCH (18:03)
[2023-12-31] MEDS: METOPROLOL SUCC 25MG EXT REL TAB PO SCH (20:25)
[2024-01-01 05:55] LABS: Hematocrit (blood only) 41.7 % (37.0-47.0); Mean Corpuscular Hemoglobin 27.7 pg (25.0-34.0); Mean Corpuscular Hgb Conc 33.6 g/dL (32.0-36.0); Mean Corpuscular Volume 82.6 fL (80.0-100.0); Platelet Count 248 K/uL (130-400); RDW Coefficient of Variation 13.6 % (11.5-14.5); RDW Standard Deviation 40.5 fL (36.4-46.3); Red Blood Count 5.05 M/uL (4.20-5.40); White Blood Count 12.21 K/ul (4.8-10.8)
[2024-01-01 06:17] LABS: BUN Creatinine Ratio 37.4 (10-20); Calcium 8.3 mg/dl (8.6-10.3); Creatinine Clr Calc Pharmacy 24.8 ml/min; Est GFR (African American) 34.6 ml/min; Est GFR (Non-African American) 29.8 ml/min; Magnesium 1.8 mg/dl (1.7-2.4); Phosphorus 6.1 mg/dl (2.5-4.9)
--- NOTE | 2024-01-01 12:39 | XRay Report ---
XR chest 1V not portable CLINICAL HISTORY: s/p left thora COMPARISON STUDY: Chest radiograph January 14, 2020. Chest CT December 31, 2023. FINDINGS: There is no pneumothorax following left thoracentesis. Left pleural effusion has significan tly decreased in size. A right pleural effusion is again noted. No evidence for pulmonary edema. Ther e is cardiomegaly. IMPRESSION: 1. No pneumothorax following left thoracentesis. Significant decrease in size of the left pleural eff usion. 2. Moderate right pleural effusion. ACT 112: Negative or not required by law. Electronically signed by: Toby Caraballo M.D. 01/01/2024 12:37 PM
[2024-01-01 13:09] LABS: Glucose Pleural Fluid 115 mg/dl; LDH Pleural Fluid 154 U/L; Total Protein Pleural Fluid < 3.0 gm/dl
[2024-01-01 13:45] LABS: Appearance Pleural Fluid Hazy; Color Pleural Fluid Yellow; Lymphocytes, Fluid 43 %; Mono,Macrophage,Mesothelial 13 %; Neutrophils, Fluid 44 %; RBC Pleural Fluid Auto < 2000 /uL; Source Pleural Fluid Left Lung; WBC Pleural Fluid Auto 582 /uL
--- NOTE | 2024-01-01 14:29 | Ultrasound Report ---
ULTRASOUND-GUIDED THORACENTESIS CLINICAL HISTORY: Left pleural effusion PROCEDURE: Procedure and risks were explained. Informed consent was obtained. A final timeout was com pleted. The left thorax was prepped and draped in sterile fashion. 1% buffered lidocaine was utilized for skin anesthesia. Utilizing ultrasound guidance, a 5 [place] safety centesis catheter was advanced into the left pleural effusion. Ultrasound image was obtained. A total of 350 mL of yellow ascites fluid was removed and s ent to the lab. The catheter was removed and Band-Aid applied. The patient tolerated the procedure we ll. Vital signs will be monitored postprocedure. Postprocedure chest x-ray will be obtained. IMPRESSION: Ultrasound-guided thoracentesis as above. Performed, dictated, and signed by Jose Huang PA-C; to be co-signed by Dr. Caleb Pace. Electronically signed by: Caleb Pace M.D. 01/01/2024 2:32 PM
--- NOTE | 2024-01-01 16:30 | Cardiology Progress Note ---
Date of Service January 01, 2024 Assessment & Plan (1) Acute on chronic heart failure with reduced ejection fraction and diastolic dysfunction: (2) CAD (coronary artery disease): Plan Patient admitted with signs/symptoms of acute CHF with evidence of volume overload on exam, hypoxia, b/l pleural effusions. Repeat echo this admission with interval decline in LVEF at around 35% when compared with prior echo in June 2023. She has a complex history of CAD, s/p LAD stent and subtotal occlusion of the RPDA branch of the RCA in 2019, not amenable to revascularization. Repeat cath in 2020 with stable findings. Negative nuclear stress test in June 2023. Due to intermittent chest pain in the fall, she was started on isosorbide and scheduled for repeat nuclear study, but this was not yet performed as it was scheduled for this week. Chest pain symptoms had improved with initiation of isosorbide mononitrate. Echocardiogram this admission reveals new moderate left ventricular systolic dysfunction LVEF in the range of 35-40% with severe hypokinesis to akinesis of the basal and mid inferior and inferoseptum. Regional wall motion abnormalities are new compared to the previous echo in June,. -Due to systolic heart failure refractory to diuresis with increase in creatinine and findings of moderate bilateral pleural effusions, patient assessed by pulmonary medicine and underwent left-sided thoracentesis 01/01/2024 under ultrasound guidance yielding 350 mL of left pleural fluid. -Based on her past cardiac catheterization anatomy and new echocardiographic findings, has likely had an interval occlusion of the right posterior descending coronary artery branch of the right coronary artery with noted subtotal occlusion in this territory previously, and findings would suggest progression of disease in that territory. -Patient and I discussed ongoing medication therapy versus consideration of repeat cardiac catheterization. Through process of shared decision-making, patient and I are in agreement to proceed with ongoing medication therapy. -Diuretics on hold at present given increase in creatinine as well as potassium of 5 mmol/L. LAUREN/ARB/ARNI on hold due to elevation in creatinine as well as potassium as well. -If potassium continues to climb tomorrow, may need treatment with a potassium binder such as Veltassa. -Continue aspirin, and Lovenox for DVT prophylaxis. -Patient is unable to take statin therapy due to her history of MELAS syndrome and is on a PCSK9 inhibitor as an outpatient. This chart was completed in part utilizing Speech Voice Recognition Software. Grammatical errors, random word insertions, pronoun errors, and incomplete sentences are an occasional consequence of this system due to software limitations, ambient noise, and hardware issues. Any formal questions or concerns about the content, text, or information contained within the body of this dictation should be directly addressed to the provider for clarification. Lauren Thomas DO Admission and Anticipated Discharge Date Admission Date: December 29, 2023 Subjective Patient is seen in cardiology follow-up. She is status post left thoracentesis performed with ultrasound guidance and the radiology department earlier today yielding 350 mL of yellow fluid. Patient notes subjective improvement in how she is feeling. Telemetry reveals sinus rhythm in the 80s. She did have 1 brief run of supraventricular tachycardia 5: 27 AM that resolved spontaneously with no documented recurrence. Physical Exam Constitutional: WD/WN, vitals as above no acute distress Neck: normal visual inspection Respiratory: no respiratory distress Auscultation: + diminished lung sounds and + crackles Cardiovascular: Rate/Rhythm: regular rate and regular rhythm Heart Sounds: + murmur (II/ at apex) Extremities: no edema Gastrointestinal (Abdomen): normal bowel sounds, soft, nontender, no hepatosplenomegaly Neurologic: Speech / Cognition: + expressive aphasia Results & Data Vital Signs (Past 12 Hours) Vital Signs Temp Pulse Pulse Resp BP Pulse Ox O2 Del Method 01/01/24 16:00 84 01/01/24 15:28 36.6 C 82 18 118/65 95 Room Air 01/01/24 08:00 Room Air 01/01/24 08:00 36.9 C 80 16 111/78 94 Room Air 01/01/24 05:52 79 Laboratory Results CBC 01/01/24 Range/Units 05:30 WBC 12.21 H (4.8-10.8) K/ul RBC 5.05 (4.20-5.40) M/uL Hgb 14.0 (12.0-16.0) g/dl Hct 41.7 (37.0-47.0) % Plt Count 248 (130-400) K/uL Comprehensive Metabolic Panel 01/01/24 Range/Units 05:30 Sodium 131 L (136-145) mmol/L Potassium 5.0 (3.5-5.1) mmol/L Chloride 99 (98-107) mmol/L Carbon Dioxide 22 (21-32) mmol/L BUN 65 H (6-23) mg/dl Creatinine 1.74 H (0.6-1.2) mg/dl Glucose 97 (70-99(Fasting)) mg/dl Calcium 8.3 L (8.6-10.3) mg/dl Intake and Output 01/01/24 01/01/24 01/01/24 06:59 14:59 22:59 Intake Total 150 / 1015 420 / 420 Output Total 100 / 200 200 / 200 Balance 50 / 815 220 / 220 Intake: Oral 150 / 1015 420 / 420 Output: Urine Amount (Catheter) 100 / 200 200 / 200 Hess/Indwelling 100 / 200 200 / 200 Other: Weight 55.6 kg Weight Measurement Method Built in [facility] (2) CAD (coronary artery disease) Coronary Disease-Associated Artery/Lesion type: [place] artery [place] vs. transplanted heart: [place] heart Associated angina: with stable angina Qualified Code(s): I25.118 - Atherosclerotic heart disease of [place] coronary artery with other forms of angina pectoris
--- NOTE | 2024-01-01 17:08 | Hospitalist Progress Note ---
Date of Service January 01, 2024 Assessment & Plan (1) Acute on chronic heart failure with reduced ejection fraction and diastolic dysfunction: Plan Acute heart failure with preserved ejection fraction (HFpEF): Moderate sized left and right pleural effusion Pt presented with what appears to be a heart failure syndrome. She denies any chest pain at this time, but has been consistently using nitroglycerin "to help with sleep." It is unclear if this may have been helping her shortness of breath in the setting of heart failure exacerbation, treating worsened, undisclosed chest pain, or something else. HS trop is elevated/flat trended which may be the result of demand ischemia iso progressive CAD, especially with a similar rise in LFTs noted up from her baseline (normal and last checked in Sep 2023) , which may occur from the fluid overloaded state. EKG is unchanged from prior except for new tachycardia. Repeat echo this admission with interval decline in LVEF to around 35-40 % compared to prior echo in June 2023. Status post left pleural effusion 01/01/2024. Total of 350 mL yellow fluid was removed. Follow-up x-ray reviewed. No pneumothorax. Statins are contraindicated given h/o MELAS. She is on PCSK9i. Metoprolol changed to succinate. hold amlodipine given known side effects of fluid retention and BP at goal currently. Cardiology on board, being diuresed, Lasix on hold due to acute kidney injury. Cont low sodium diet, and daily weights. Continue telemetry. Follow-up pleural fluid studies. ASCVD (arteriosclerotic cardiovascular disease): Complex history of CAD, s/p LAD stent and subtotal occlusion of the RPDA branch of the RCA in 2019, not amenable to revascularization. Repeat cath in 2020 with stable findings. negative nuclear stress test in June 2023. Now with interval decline in LVEF. -chronic, recently noncompliant with ASA and metoprolol which were re-started. Metoprolol tartrate switch to succinate 50 mg daily. -not on statin due to history of MELAS. Compliant with PCSK9 inhib. -Medical mx for now per cardio; cardiac cath deferred. -c/w telemetry. Hypomagnesemia: some recent diarrhea reported which may be the cause here. Replete and monitor. Transaminitis: Likely related to fluid overload state. RUQ ultrasound obtained -unremarkable exam s/p cholecystectomy. F/u LFT in AM and as OP. MELAS (mitochondrial encephalopathy, lactic acidosis and stroke-like episodes): - statins contraindicated, h/o stroke with residual expressive and receptive deficits. She is very functional per her son with who she lives, including most IADLs. Hemiplegia reported but she has symmetric strength in both sides, and reportedly ambulates independently per son. Cont daily aspirin. PT/OT to assess. Type 1 diabetes mellitus: chronic, uncontrolled (last A1C 7.8) with polyneuropathy and macular degeneration. Current A1c 7.7%. Continue basal insulin during this admission. Patient noncompliant with insulin. Encouraged for medication adherence. HLD (hyperlipidemia): chronic, stable. She continues on Repatha injections. Hypertension: chronic, at goal. Cont with plan noted above. Holding amlodipine. DVT proph: Lovenox Full Code per son on admission. He reports that mother doesn't want any [facility] life support. Dispo- to telemetry Admission and Anticipated Discharge Date Admission Date: December 29, 2023 Subjective Patient was seen and examined at bedside. Patient was sitting up in chair, on room air, resting comfortably, not in any acute distress. Patient does report improvement in her subjective feeling of shortness of breath. RN, patient is eating okay and moving bowels okay, no new acute event overnight. Physical Exam Physical Exam: CONSTITUTIONAL: WNWD F in NAD, +chronically ill appearing EYES: EOMI bilaterally, PERRL, no scleral icterus ENT: external ear and nose normal, oropharynx clear, MMM, lips are dry, +cochlear implant on the left NECK: supple RESPIRATORY: +crackles at bilateral bases, no rales or wheezes CARDIOVASCULAR: rrr, S1 and 2 heard without murmurs, gallops or rubs, slight JVD, 1+ peripheral edema in lower extremities bilaterally to knees CHEST: inspection of chest normal GASTROINTESTINAL: soft, nontender, ND, no guarding, some abdominal bruising. MUSCULOSKELETAL: head is normocephalic and atraumatic, neck supple, normal palpation of chest wall without tenderness, moves extremities SKIN: warm and dry, no rashes NEUROLOGIC: PERRL, EOMI, no facial palsy, + dysarthria (at baseline). normal cognition (at her baseline), no tremor, moves extremities PSYCHIATRIC: alert cooperative. Able to follow commands. Euthymic mood, makes good eye contact Results & Data Results & Data Vital Signs (Past 12 Hours) Vital Signs Temp Pulse Pulse Resp BP Pulse Ox O2 Del Method 01/01/24 16:00 84 01/01/24 15:28 36.6 C 82 18 118/65 95 Room Air 01/01/24 08:00 Room Air 01/01/24 08:00 36.9 C 80 16 111/78 94 Room Air 01/01/24 05:52 79
[2024-01-02 07:36] LABS: Hematocrit (blood only) 41.2 % (37.0-47.0); Hemoglobin 13.3 g/dl (12.0-16.0); Mean Corpuscular Hemoglobin 26.9 pg (25.0-34.0); Mean Corpuscular Hgb Conc 32.3 g/dL (32.0-36.0); Mean Corpuscular Volume 83.4 fL (80.0-100.0); Mean Platelet Volume 12.2 fL (9.4-12.4); Nucleated RBC # (auto) 0.02 K/uL (0.00-0.12); Nucleated RBC % (auto) 0.2 %; Platelet Count 222 K/uL (130-400); RDW Coefficient of Variation 13.5 % (11.5-14.5); RDW Standard Deviation 40.9 fL (36.4-46.3); Red Blood Count 4.94 M/uL (4.20-5.40); White Blood Count 10.32 K/ul (4.8-10.8)
[2024-01-02 08:02] LABS: Albumin Level 3.2 gm/dl (3.4-5.0); BUN Creatinine Ratio 47.2 (10-20); Bilirubin Direct 0.3 mg/dl (0-0.2); Bilirubin,Total 0.9 mg/dl (0.2-1.0); Calcium 8.1 mg/dl (8.6-10.3); Est GFR (African American) 50.6 ml/min; Est GFR (Non-African American) 43.6 ml/min; Magnesium 1.8 mg/dl (1.7-2.4); Phosphorus 4.5 mg/dl (2.5-4.9); Potassium 4.5 mmol/L (3.5-5.1); Total Protein 5.4 gm/dl (6.0-8.3)
--- NOTE | 2024-01-02 14:05 | Discharge Summary ---
Date of Service January 02, 2024 Admission HPI Per Admitting Provider Patient is a 68-year-old female who presented to the ER today for concern of worsening swelling of the bilateral lower extremities. She is a type I diabetic who was recently admitted to the hospital in June 2023 for chest pain worked up with a Lexiscan nuclear stress test which was negative for inducible ischemia with a normal LV function and wall motion. She lives at home with her son and she manages her own medications. She has a h/o hemiplegia with chronic aphasia; son reports she ambulates without assistance, cooks her own meals and uses a smart phone independently. Evidence of LE swelling, elevated BNP on today's labwork and CXR with bilateral pleural effusions and pulmonary vascular congestion point to CHF exacerbation as a cause of her symptoms. She was given furosemide 40mg IV in the ER today and a bingham catheter was placed. It is difficult to get a history from the patient with her expressive and receptive aphasia post stroke as well as her hearing loss. Son was present at bedside and assisted with history. Patient reports noncompliance with "all my medications" for the past 10 days because she was "sick." Son reports that she was having bouts of diarrhea and was taking Kaopectate OTC for this. He isn't sure if this has cleared up. The patient mentions having to get up at night and "go to the bathroom" which appears like a frequent and distressing thing for her the way she describes this and then having to take Kaopectate and nitroglycerin to help her get some sleep. She apparently has been taking nitroglycerin nightly, but denies chest pain, although history is very difficult here. The patient doesn't follow a clear line of Q/A and tends to tangent when answering a question. She does appear to be clear in reporting worsening SOB for the last few days and son reports increased swelling in her legs for only the last couple of days. There is no report of fever, coughing, chills. Son isn't sure if the diarrhea has cleared up and notes that he was not sick. He lives with her, but patient manages her own medications. Son reports, patient's sister has been taking her to medical appointments recently and he isn't sure of any changes in medications/plans. There is some abdominal bruising present, which may be a side effect of Repatha she takes every 2 weeks. She does self-administer insulin and reports having this consistently "because I am a diabetic" but not any of her other medications. She is tolerating food without any report of vomiting. Last ate some waffles this morning. Son reports that she eats alot of crackers, but no clear dietary indiscretions that are new per se. Med list was confirmed with her outpatient record as patient was unable to give an accurate list with her communication disabilities. Admission Exam Per Admitting Provider CONSTITUTIONAL: WNWD, vitals as above, generally well-appearing, NAD EYES: EOMI bilaterally, PERRL, no scleral icterus ENT: external ear and nose normal, oropharynx clear, MMM, lips are dry, +cochlear implant on the left NECK: trachea midline RESPIRATORY: poor effort 2/2 not understanding the direction well and patient trying to speak when breathing, +crackles heard at bilateral bases and in anterior lungs bilaterally, no rales or wheezes, slight increased respiratory effort with some conversational dyspnea at rest. CARDIOVASCULAR: tachy rate and reg rhythm, S1 and 2 heard without murmurs, gallops or rubs, slight JVD, trace peripheral edema in lower extremities bilaterally to knees CHEST: inspection of chest was normal GASTROINTESTINAL: soft, nontender, ND, no guarding, some abdominal bruising. MUSCULOSKELETAL: strength 5/5 throughout, head is normocephalic and atraumatic, neck supple, normal palpation of chest wall without tenderness SKIN: warm and dry, no rashes NEUROLOGIC: patellar DTRs attempted but unable to elicit bilaterally. PERRL, EOMI, no facial palsy, + dysarthria (at baseline). CN 2-12 grossly intact, normal cognition (at her baseline), no tremor PSYCHIATRIC: alert cooperative, appears to be oriented but cannot confirm given aphasia. Able to follow commands and given some accurate pieces of the story. Euthymic mood, makes good eye contact, language grossly intact, recent and remote memory grossly intact. Principal Diagnosis Acute heart failure with preserved ejection fraction Moderate size left and right pleural effusion Transaminitis likely secondary to congestive hepatopathy Discharge Exam CONSTITUTIONAL: WNWD F in NAD, +chronically ill appearing EYES: EOMI bilaterally, PERRL, no scleral icterus ENT: external ear and nose normal, oropharynx clear, MMM, lips are dry, +cochlear implant on the left NECK: supple RESPIRATORY: +crackles at bilateral bases, no rales or wheezes CARDIOVASCULAR: rrr, S1 and 2 heard without murmurs, gallops or rubs, slight JVD, trace peripheral edema in lower extremities b/l CHEST: inspection of chest normal GASTROINTESTINAL: soft, nontender, ND, no guarding, some abdominal bruising. MUSCULOSKELETAL: head is normocephalic and atraumatic, neck supple, normal palpation of chest wall without tenderness, moves extremities SKIN: warm and dry, no rashes NEUROLOGIC: PERRL, EOMI, no facial palsy, + dysarthria (at baseline). normal cognition (at her baseline), no tremor, moves extremities PSYCHIATRIC: alert cooperative. Able to follow commands. Euthymic mood, makes good eye contact Discharge Data Allergies Allergy/AdvReac Type Severity Reaction Status Date / Time atorvastatin AdvReac Intermediate myalgias, Verified 08/05/23 16:28 dysarthria prednisone AdvReac Intermediate metabolic-h Verified 08/05/23 16:28 yperglycemi a Consultations 12/29/23 14:15 ED Decision to Admit Stat 12/29/23 16:41 Consult Cardiology Routine 12/31/23 13:34 Consult Pulmonology Routine Ordered Studies 12/29/23 15:55 US liver Routine 01/01/24 11:00 IR thoracentesis wo tube US Routine Hospital Course (1) Acute on chronic heart failure with reduced ejection fraction and diastolic dysfunction: Plan Acute heart failure with preserved ejection fraction (HFpEF): Moderate sized left and right pleural effusion Pt presented with what appears to be a heart failure syndrome. She denies any chest pain at this time, but has been consistently using nitroglycerin "to help with sleep." It is unclear if this may have been helping her shortness of breath in the setting of heart failure exacerbation, treating worsened, undisclosed chest pain, or something else. HS trop is elevated/flat trended which may be the result of demand ischemia iso progressive CAD, especially with a similar rise in LFTs noted up from her baseline (normal and last checked in Sep 2023) , which may occur from the fluid overloaded state. EKG is unchanged from prior except for new tachycardia. Repeat echo this admission with interval decline in LVEF to around 35-40 % compared to prior echo in June 2023. Status post left pleural effusion 01/01/2024. Total of 350 mL yellow fluid was removed. Follow-up x-ray reviewed. No pneumothorax. Statins are contraindicated given h/o MELAS. She is on PCSK9i. Metoprolol changed to succinate. Amlod DC'd. Will need consideration for acei/arb/entresto; pt to f/u w/ cardio on DC. Heidy improving. d/w cardio.pt being dc'd on lasix MWF at 20 mg. HH diet and low sodium diet encouraged. ASCVD (arteriosclerotic cardiovascular disease): Complex history of CAD, s/p LAD stent and subtotal occlusion of the RPDA branch of the RCA in 2019, not amenable to revascularization. Repeat cath in 2020 with stable findings. negative nuclear stress test in June 2023. Now with interval decline in LVEF. -chronic, recently noncompliant with ASA and metoprolol which were re-started. Metoprolol tartrate switch to succinate 12.5 mg bid. -not on statin due to history of MELAS. Compliant with PCSK9 inhib. -Medical mx for now per cardio; cardiac cath deferred. -f/u w/ cardio on dc. Hypomagnesemia: some recent diarrhea reported which may be the cause here. Replete and monitor. Transaminitis: Likely related to fluid overload state. RUQ ultrasound obtained - unremarkable exam s/p cholecystectomy. Patient's son made aware of the elevated liver enzymes and need to closely follow-up possibly in 3 days upon discharge and if lft still up going then she needs evaluation by GI doctor. He voiced understanding. MELAS (mitochondrial encephalopathy, lactic acidosis and stroke-like episodes): - statins contraindicated, h/o stroke with residual expressive and receptive deficits. She is very functional per her son with who she lives, including most IADLs. Hemiplegia reported but she has symmetric strength in both sides, and reportedly ambulates independently per son. Cont daily aspirin. PT/OT to assess. Type 1 diabetes mellitus: chronic, uncontrolled (last A1C 7.8) with polyneu ropathy and macular degeneration. Current A1c 7.7%. Continue basal insulin during this admission. Patient noncompliant with insulin. Encouraged for medication adherence. HLD (hyperlipidemia): chronic, stable. She continues on Repatha injections. Hypertension: chronic, at goal. Cont with plan noted above. Discontinued amlodipine. DVT proph: Lovenox Full Code per son on admission. He reports that mother doesn't want any long term care social worker life support. Dispo- to telemetry Per director of casework, patient declined home health services. Patient being discharged home with family support with following instruction at the point of discharge: Follow-up with your primary care physician within a week time and likely you will need labs CBC/CMP/magnesium/phosphorus. You were managed for acute on chronic heart failure, you will be discharged on Lasix 20 mg on Saturday/Saturday/Saturday. Follow-up with your cardiology in 2 to 4 weeks time upon discharge. Your prior to arrival metoprolol tartrate has been changed to metoprolol succinate 12.5 mg twice a day. Your amlodipine has been discontinued. Your liver enzymes were elevated while in the hospital, likely secondary to volume overload secondary to your heart failure. You will need repeat liver function test in 3-5 days time upon discharge, coordinate with the PCP office. If the elevation continues to worsen, you will need evaluation by GI doctor. Coordinate with the PCP office to set up the referral. Take your medications as prescribed. Please make sure that you are able to get your medications today by calling your pharmacy before you leave the hospital so that your treatment continuity is not broken. Home Health Attestation I certify that this patient is under my care and that I, or a physicians assistant to the dean working with me, had a face to-face encounter that meets the home health [id number] encounter requirements with this patient. The encounter with the patient was in whole, or in part, for the following medical condition, which is the primary reason for home health care (list medical condition): I certify that, based on my findings, the following services are medically necessary home health services: My clinical findings support the need for the above services because: Further, I certify that my clinical findings support that this patient is homebound (i.e. absences from home require considerable and taxing effort and are for medical reasons or buddhist services or infrequently or of short duration when for other reasons) because: Certification for Home Health Services: Based on the above findings, I certify that this patient is confined to the home and needs intermittent mcfp care, physical therapy and/or speech therapy or continues to need occupational therapy. The patient is under my care, and I have initiated the establishment of the plan of care. This patient will be followed by a physician who will periodically review the plan of care. Total Time Total Time Spent Total Time Spent (In Minutes): 45 Discharge Plan Discharge Items Patient Disposition: Home - Self-Care Reason For Visit: CHF EXACERBATION Discharge Diagnosis: Acute heart failure with preserved ejection fraction Moderate size left and right pleural effusion Transaminitis likely secondary to congestive hepatopathy Activity: Resume your previous activity Non-emergency contact: Primary Care Provider Call non-emergency contact if: you have any medication questions, your symptoms worsen and your temperature is above 101 Follow-up/Referrals: Amairani Owen MD [Primary Care Provider] - Diet: Heart Healthy and Low Sodium (2gm) Addtl Attending Provider Instructions: Follow-up with your primary care physician within a week time and likely you will need labs CBC/CMP/magnesium/phosphorus. You were managed for acute on chronic heart failure, you will be discharged on Lasix 20 mg on Saturday/Saturday/Saturday. Follow-up with your cardiology in 2 to 4 weeks time upon discharge. Your prior to arrival metoprolol tartrate has been changed to metoprolol succinate 12.5 mg twice a day. Your amlodipine has been discontinued. Your liver enzymes were elevated while in the hospital, likely secondary to volume overload secondary to your heart failure. You will need repeat liver function test in 3-5 days time upon discharge, coordinate with the PCP office. If the elevation continues to worsen, you will need evaluation by GI doctor. Coordinate with the PCP office to set up the referral. Take your medications as prescribed. Please make sure that you are able to get your medications today by calling your pharmacy before you leave the hospital so that your treatment continuity is not broken. Pending Studies at Discharge: Yes Stand-Alone Forms: My [employer], Smoking Cessation Medications and DC Order Prescriptions: New metoprolol succinate 25 mg Tablet Extended Release 24 Hr 12.5 mg PO BID Qty: 30 0RF furosemide 20 mg tablet 20 mg PO MOWEFR Qty: 14 0RF Continued insulin aspart U-100 [Novolog FlexPen U-100 Insulin] 100 unit/mL (3 mL) insu leila pen 6 unit SUBCUT TIDM insulin glargine [Lantus Solostar U-100 Insulin] 100 unit/mL (3 mL) Insulin Pen 20 unit SUBCUT HS Lipotriad Vision Support 12,500 unit- 12.5 mg Capsule 1 cap PO QAM nitroglycerin [Nitrostat] 0.4 mg Tablet, Sublingual 0.4 mg sublingual UD PRN (Reason: chest pain) Qty: 30 1RF aspirin 81 mg Tablet,Delayed Release (Dr/Ec) 81 mg PO QAM Qty: 90 1RF Repatha SureClick 140 mg/mL pen injector 140 mg SUBCUT .[id number] coenzyme Q10 [CoQ-10] 100 mg Capsule 100 mg PO DAILY Discontinued amlodipine 2.5 mg tablet 2.5 mg PO DAILY metoprolol tartrate 50 mg Tablet 50 mg PO BID Qty: 60 0RF Discharge Orders: Discharge Order- CHF (Routine); Ordered 01/02/24 Ordered By: Bello Rowley/Other Patient Handouts: Managing Type 1 Diabetes Admission Data Admit Date/Time: 12/29/23 13:56 Attending Provider: Bello Pereira Admit Provider: Laney Murcia Primary Care Provider: Amairani Owen Other Providers: Laney Murcia; Aiden Cabral; Dewey Benitez; Jonah Cancino; Andreas Merdano; Shayy Martin; Whit Everett; Concepcion Myles; Abilio Lang; Norman Graff; Monse Capone
--- NOTE | 2024-01-02 17:16 | Cardiology Progress Note ---
Date of Service January 02, 2024 Assessment & Plan (1) Acute on chronic heart failure with reduced ejection fraction and diastolic dysfunction: (2) CAD (coronary artery disease): Plan 68-year-old female admitted with acute decompensated heart failure with bilateral pleural effusions. Echocardiogram reveals decline in LV systolic function with LVEF 35-40%. Symptoms improved with diuresis and thoracentesis. Treatment with IV diuretic therapy limited by renal insufficiency. Creatinine has trended downward near baseline. Recommend discharge on furosemide 20 mg 3 days/week. Repeat basic metabolic panel in outpatient setting in approximately 5 to 7 days. Complex history of coronary disease status post LAD stenting and subtotal occlusion of the right posterior descending artery branch vessel of the RCA in 2019. Right posterior descending artery vessel not amenable to revascularization. Repeat cardiac catheterization performed 2020 with stable findings. Repeat cardiac catheterization would be likely low yield given prior evaluations and current echocardiogram demonstrating RCA territory wall motion abnormality. Patient agreeable to ongoing medical management. No further inpatient cardiac testing or intervention recommended at this time. Admission and Anticipated Discharge Date Admission Date: December 29, 2023 Subjective Patient seen and examined at the bedside. Dyspnea improved. Thoracentesis performed without complication. Denies chest pain or heaviness. Telemetry reveals sinus rhythm in the 80s. Review of Systems Review of Systems: All systems reviewed & are unremarkable except as noted in Subjective Physical Exam Constitutional: well nourished; no acute distress Respiratory: no respiratory distress, no labored breathing and no retractions Auscultation: + diminished lung sounds (Right base); no crackles, no rales, no rhonchi and no wheezes Cardiovascular: Rate/Rhythm: regular rate and regular rhythm Heart Sounds: normal S1, normal S2 and + murmur (2/6 systolic murmur heard at the apex) Gastrointestinal (Abdomen): Inspection/Auscultation: normal bowel sounds; abdomen not distended Percussion/Palpation: abdomen soft; abdomen nontender, no guarding and abdomen not rigid Neurologic: + Expressive aphasia Results & Data Vital Signs (Past 12 Hours) Vital Signs Temp Pulse Resp BP Pulse Ox O2 Del Method 01/02/24 14:46 35.0 C L 91 H 18 122/84 99 01/02/24 14:28 35.0 C L 91 H 18 122/84 99 01/02/24 13:53 35.0 C L 91 H 18 122/84 99 Room Air 01/02/24 07:33 36.4 C L 87 16 112/70 97 Room Air 01/02/24 07:30 Room Air Laboratory Results Cardiac Enzymes 01/02/24 Range/Units 06:40 AST 341 H (13-39) U/L CBC 01/02/24 Range/Units 06:40 WBC 10.32 (4.8-10.8) K/ul RBC 4.94 (4.20-5.40) M/uL Hgb 13.3 (12.0-16.0) g/dl Hct 41.2 (37.0-47.0) % Plt Count 222 (130-400) K/uL Comprehensive Metabolic Panel 01/02/24 Range/Units 06:40 Sodium 131 L (136-145) mmol/L Potassium 4.5 (3.5-5.1) mmol/L Chloride 99 (98-107) mmol/L Carbon Dioxide 23 (21-32) mmol/L BUN 60 H (6-23) mg/dl Creatinine 1.27 H D (0.6-1.2) mg/dl Glucose 173 H (70-99(Fasting)) mg/dl Calcium 8.1 L (8.6-10.3) mg/dl Direct Bilirubin 0.3 H (0-0.2) mg/dl AST 341 H (13-39) U/L ALT 327 H (7-52) U/L Alkaline Phosphatase 91 (34-104) U/L Total Protein 5.4 L (6.0-8.3) gm/dl Albumin 3.2 L (3.4-5.0) gm/dl Intake and Output 01/02/24 01/02/24 01/02/24 06:59 14:59 22:59 Output Total 300 / 650 Balance -300 / -130 Output: Urine Amount (Catheter) 300 / 650 Hess/Indwelling 300 / 650 Other: Other Intake Source Sips Weight 55.7 kg 55.7 kg Weight Measurement Method Built in [facility] Patient Weight 01/03/24 06:59 Weight 55.7 kg (2) CAD (coronary artery disease) Coronary Disease-Associated Artery/Lesion type: [place] artery [place] vs. transplanted heart: [place] heart Associated angina: with stable angina Qualified Code(s): I25.118 - Atherosclerotic heart disease of [place] coronary artery with other forms of angina pectoris
[2024-01-02] MEDS ORDERED: ENOXAPARIN INJ 40 MG/0.4 ML SYR SQ SCH (18:00)
== END 2024-01-02 16:05 | disposition home or self-care (01) | DRG 291 ==
LOC: ED 11:39 → SUATTDRO 13:56 → EDINP 13:56 → 2E 20:27

== ENCOUNTER 2024-01-08 16:40 | Inpatient (IN) ==
--- NOTE | 2024-01-08 17:28 | XRay Report ---
XR chest 1V not portable CLINICAL HISTORY: Chest pain, nonspecific TECHNIQUE: Single frontal radiograph of the chest was obtained. Comparison: Comparison is made to chest radiograph 01/01/2024 FINDINGS: No lines and tubes are seen. Cardiomegaly is noted. The aortic arch is calcified. There is prominence and cephalization of the vasculature with Darian B lines seen. Small bilateral pleural effusions are seen. IMPRESSION: Cardiomegaly and moderate pulmonary edema. Small bilateral pleural effusions. ACT 112: Negative or not required by law. Electronically signed by: Madhu Thomas M.D. 01/08/2024 5:27 PM
[2024-01-08 17:54] LABS: Basophils % (auto) 0.8 %; Eosinophils # (auto) 0.18 K/uL (0.00-0.50); Eosinophils % (auto) 1.5 %; Hematocrit (blood only) 42.4 % (37.0-47.0); Hemoglobin 13.5 g/dl (12.0-16.0); Immature Granulocytes # (auto) 0.04 K/uL (0.01-0.20); Immature Granulocytes % (auto) 0.3 %; Lymphocytes # (auto) 1.86 K/uL (1.20-3.40); Lymphocytes % (auto) 15.5 %; Mean Corpuscular Hemoglobin 26.4 pg (25.0-34.0); Mean Corpuscular Hgb Conc 31.8 g/dL (32.0-36.0); Mean Platelet Volume 11.6 fL (9.4-12.4); Monocytes # (auto) 0.69 K/uL (0.11-0.59); Monocytes % (auto) 5.7 %; Neutrophils # (auto) 9.16 K/uL (1.40-6.50); Neutrophils % (auto) 76.2 %; Platelet Count 209 K/uL (130-400); RDW Standard Deviation 42.1 fL (36.4-46.3); Red Blood Count 5.11 M/uL (4.20-5.40); White Blood Count 12.03 K/ul (4.8-10.8)
[2024-01-08 18:13] LABS: Alanine Aminotransferase 98 U/L (7-52); Albumin Globulin Ratio 1.4 (0.9-2); Albumin Level 3.9 gm/dl (3.4-5.0); Alkaline Phosphatase 86 U/L (34-104); Anion Gap 13 (3-11); Aspartate Aminotransferase 41 U/L (13-39); BUN Creatinine Ratio 23.1 (10-20); Bilirubin,Total 1.1 mg/dl (0.2-1.0); Blood Urea Nitrogen 25 mg/dl (6-23); Calcium 8.8 mg/dl (8.6-10.3); Carbon Dioxide 24 mmol/L (21-32); Chloride 100 mmol/L (98-107); Est GFR (African American) 61.5 ml/min; Est GFR (Non-African American) 53.1 ml/min; Globulin 2.8 gm/dl (2.5-4.0); Glucose 144 mg/dl (70-99(Fasting)); Potassium 3.7 mmol/L (3.5-5.1); Sodium 137 mmol/L (136-145); Total Protein 6.7 gm/dl (6.0-8.3)
[2024-01-08 18:37] LABS: Troponin I High Sensitivity 140.3 pg/ml (0-14)
[2024-01-08 18:39] LABS: INR 1.2 (0.9-1.1); Partial Thromboplastin Time 28 Seconds (21-31); Prothrombin Time 13.2 Seconds (9.0-12.0)
--- NOTE | 2024-01-08 18:46 | Emergency Department Note ---
Impression & Plan Acute exacerbation of CHF (congestive heart failure), Leg swelling, Bilateral pleural effusion ED Provider Note NAME: WINNIE DONG AGE: 68 SEX: F : 1955 ARRIVES VIA: Walk-In INFORMANT: Patient, ED PROVIDER(S): Roland Fowler MD CHIEF COMPLAINT: Shortness of breath, leg swelling MEDICAL DECISION MAKING: Patient presented due to concern for worsening lower extremity edema and dyspnea on exertion with a known history of CHF. IV was established and blood work was obtained. White count 12 with a normal H&H and platelet count. Kidney function unremarkable. The patient does have an elevated troponin and BNP at 140 and 1757 respectively. Patient does have transaminitis with a bilirubin of 1.1 has been as high in the past. AST of 41 as well as ALT of 98 both of which have been higher in the past. Given the concern for possible noncompliance the patient tachycardia I do believe this is potentially causing diastolic dysfunction. Believe sepsis to be less likely. The patient was ordered a dose of IV Lopressor as well as IV Lasix. Patient did have improvement in her heart rate with metoprolol from the 120s and 130s to the 90s. Given the patient's worsening heart failure volume overload and diastolic dysfunction I did speak with the on-call hospitalist service Dr. Erickson and the patient was admitted to the medicine service Critical Care: I have personally spent 35 minutes of critical care time in direct management of this patient. This includes bedside care, interpretation of diagnostic studies, and testing, discussion with consultants, patient, and family members, and other require inpatient management activities. This 35 minutes is in excess of all separately billable procedures. Discussion w/ other healthcare providers: Dr. Erickson inpatient medicine service Prior /Outside records reviewed: I reviewed a recent discharge summary from Dr. Pereira from January 02, 2024. Patient did have heart failure pleural effusion and transaminitis. Differential diagnosis: Reactive airway disease, pneumonia, pneumothorax, COPD, CHF, ACS, pulmonary embolism, musculoskeletal, GERD as well as other pathologies were considered. Diagnostics, as interpreted by me: ECG: Sinus tachycardia, rate of 128, normal intervals left axis deviation no ST elevations, T wave abnormality lateral leads, Q waves inferiorly. Q waves also anteriorly. Repeat EKG interpreted by myself Sinus rhythm, rate of 98, normal OK and QRS, left axis deviation Q waves inferiorly and anteriorly. Cardiac monitoring: An order was placed for continuous cardiac monitoring. The monitor shows a rate of 125 with tachycardic and regular rhythm. Patient was placed on pulse oximetry Medical decision rules: None Imaging studies: I informally interpreted the patient's Chest x-ray which shows bilateral pleural effusions and pulmonary edema. with formal report to follow. HPI: Patient presents due to concern for worsening shortness of breath and lower extremity swelling. The patient is also concerned about wounds to the bilateral feet. The patient is accompanied by her son. The patient has a history of nonadherence to her medications and the son does not believe that she has been taking her medicines. The patient does have a prior history of stroke and did suffer from some aphasia. No reported cough or fevers no chills. The patient does not complain of any chest pain but is short of breath. Patient's son is present as well and provides similar history. PAST MEDICAL HISTORY: See Below PAST SURGICAL HISTORY: See Below SOCIAL HISTORY: See Below HOME MEDICATIONS: See Below ALLERGIES: See Below VITALS: See Below PHYSICAL EXAMINATION: GENERAL: NAD, non-toxic. EYE EXAM: Normal conjunctiva. PERRL, no anisocoria and EOM's grossly intact w/o pain. OROPHARYNX: Moist mucus membranes, grossly normal dentition. NECK: Trachea midline, no stridor. Supple, no nuchal rigidity, no adenopathy, non-tender. No signs of meningismus. FROM of the neck with good chin to chest and neck extension. LUNGS: Bibasilar crackles. Normal chest wall mechanics. HEART: Tachycardic and regular, no MRG. ABDOMEN: Abdomen soft, non-tender, no masses, no rebound or guarding. BACK: No CVA TTP. SKIN: No rashes and no bruising. UPPER EXTREMITIES: Upper extremities are grossly normal. LOWER EXTREMITIES: Grossly normal, 3+ pitting edema symmetric in the lower extremities. No crepitus. Small eschar approximate quarter of a centimeter on the dorsal aspect of the left foot no surrounding erythema, small eschar noted to the base of the right first toe nailbed without significant erythema. NEURO EXAM: A&O x3, cranial nerves II-XII grossly intact, normal speech, moves all 4 extremities. Past Med/Surg History Medical History (Updated 01/09/24 @ 00:53 by Roland Fowler MD) Bilateral pleural effusion Unspecified hereditary retinal dystrophy Bilateral sensorineural hearing loss Bilateral myopia 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 Degeneration of cervical intervertebral disc History of TMJ disorder Hemiplegia Diabetic polyneuropathy Aphasia as late effect of cerebrovascular accident CAD (coronary artery disease) Statin intolerance Atherosclerosis of coronary artery Macular degeneration Mnire's disease Schatzki's ring MELAS (mitochondrial encephalopathy, lactic acidosis and stroke-like episodes) HLD (hyperlipidemia) Type 1 diabetes mellitus Hypertension Surgical History S/P coronary artery stent placement History of heart artery stent History of cochlear implant Left in 2014 History of left heart catheterization 07/2019 which revealed 30% proximal LAD otherwise clean coronaries History of colonoscopy with polypectomy History of cholecystectomy History of hysterectomy Family History Mother Coronary heart disease, Onset Age: 70 Father Coronary heart disease, Onset Age: 50 Daughter MELAS (mitochondrial encephalopathy, lactic acidosis and stroke-like episodes) Social History Smoking Status: Never smoker Tobacco Type: Cigarettes Second Hand Exposure: No; Do You Dip or Chew Tobacco: No; Preferred Language: Yakut Communication Ability: Impaired Communication Ability Comment: Cochlear implant, communication difficult at times Hearing Ability: Cochlear Implant Publications Editor Required: No Beliefs That Will Affect Care: None marital status: Current Living Situation: Family Current Living Situation Comment: per patient, son lives with her current occupational status: retired and disabled How many Children do You have: 2 Feels Safe at Home: Yes Assistive Devices: Cane, Glasses and Other Allergies Allergies Allergy/AdvReac Type Severity Reaction Status Date / Time atorvastatin AdvReac Intermediate myalgias, Verified 01/08/24 21:34 dysarthria prednisone AdvReac Intermediate metabolic-h Verified 01/08/24 21:34 yperglycemi a Home Meds Home Medications Medication Instructions Recorded Confirmed insulin aspart U-100 100 unit/mL 6 unit subcut TIDM 05/14/20 01/08/24 (3 mL) subcutaneous pen (Novolog FlexPen U-100 Insulin aspart) insulin glargine 100 unit/mL (3 20 unit subcut HS 05/14/20 01/08/24 mL) subcutaneous pen (Lantus Solostar U-100 Insulin) vit A 12,500 unit-zinc 12.5 1 cap PO QAM 05/14/20 01/08/24 [id number]-bilberry-herb #261 capsule (Lipotriad Vision Support) evolocumab 140 mg/mL subcutaneous 140 mg subcut .[id number] 08/10/21 01/08/24 pen injector (Repatha SureClick) coenzyme Q10 100 mg capsule 100 mg PO DAILY 01/14/22 01/08/24 (CoQ-10) amlodipine 2.5 mg tablet 2.5 mg PO DAILY 01/08/24 01/08/24 Previous Rx's Medication Instructions Recorded aspirin 81 mg tablet,delayed 81 mg PO QAM #90 tabs 05/17/20 release nitroglycerin 0.4 mg sublingual 0.4 mg sublingual UD PRN chest 05/17/20 tablet (Nitrostat) pain #30 tabs furosemide 20 mg tablet 20 mg PO MOWEFR #14 tabs 01/02/24 metoprolol succinate 25 mg 12.5 mg (1/2 x 25 mg) PO BID #30 01/02/24 tablet,extended release 24 hr tabs Results & Data (ED) Vital Signs Vital Signs - 24 hr 01/08/24 16:49 01/08/24 18:46 01/08/24 18:51 Temperature 36.4 C L Temperature Source Temporal Artery Scan Pulse Rate 95 H 115 H 129 H Pulse Rate [Apical] Pulse Rate from SpO2 Sensor Respiratory Rate 22 20 Respiratory Effort / Characteristics Respiratory Depth Respiratory Pattern Blood Pressure 123/81 130/95 Blood Pressure [Right Arm] Blood Pressure Mean 95 106 Blood Pressure Mean [Right Arm] Pulse Oximetry 96 94 Oxygen Delivery Method Room Air Room Air Sepsis Recent Fever Within 48 Hours No Sepsis New/Unexplained Change in Mental Status No Sepsis Action Taken by Nursing No Action Required 01/08/24 19:05 01/08/24 19:23 01/08/24 20:07 Temperature Temperature Source Pulse Rate 129 H 98 H Pulse Rate [Apical] 97 H Pulse Rate from SpO2 Sensor 98 H Respiratory Rate 20 22 Respiratory Effort / Characteristics Non-Labored Respiratory Depth Normal Respiratory Pattern Regular Blood Pressure 123/95 112/76 Blood Pressure [Right Arm] 123/95 Blood Pressure Mean 81 Blood Pressure Mean [Right Arm] 104 Pulse Oximetry 98 93 Oxygen Delivery Method Room Air Sepsis Recent Fever Within 48 Hours Sepsis New/Unexplained Change in Mental Status Sepsis Action Taken by Nursing Laboratory Data 01/08/24 17:25 01/08/24 17:25 Lab Results 01/08/24 01/08/24 Range/Units 17:25 19:22 WBC 12.03 H (4.8-10.8) K/ul RBC 5.11 (4.20-5.40) M/uL Hgb 13.5 (12.0-16.0) g/dl Hct 42.4 (37.0-47.0) % MCV 83.0 (80.0-100.0) fL MCH 26.4 (25.0-34.0) pg MCHC 31.8 L (32.0-36.0) g/dL RDW Std Deviation 42.1 (36.4-46.3) fL RDW Coeff of Marj 14.0 (11.5-14.5) % Plt Count 209 (130-400) K/uL MPV 11.6 (9.4-12.4) fL Immature Gran % (Auto) 0.3 % Neut % (Auto) 76.2 % Lymph % (Auto) 15.5 % [place] % (Auto) 5.7 % Eos % (Auto) 1.5 % Baso % (Auto) 0.8 % Neut # (Auto) 9.16 H (1.40-6.50) K/uL Lymph # (Auto) 1.86 (1.20-3.40) K/uL [place] # (Auto) 0.69 H (0.11-0.59) K/uL Eos # (Auto) 0.18 (0.00-0.50) K/uL Baso # (Auto) 0.10 (0.00-0.20) K/uL Immature Gran # (Auto) 0.04 (0.01-0.20) K/uL PT 13.2 H (9.0-12.0) Seconds INR 1.2 H (0.9-1.1) APTT 28 (21-31) Seconds PTT Ratio 1.0 Sodium 137 (136-145) mmol/L Potassium 3.7 (3.5-5.1) mmol/L Chloride 100 (98-107) mmol/L Carbon Dioxide 24 (21-32) mmol/L Anion Gap 13 H (3-11) BUN 25 H (6-23) mg/dl Creatinine 1.08 (0.6-1.2) mg/dl Est Cr Clr Drug Dosing Not Reportable Est GFR ( Amer) 61.5 ml/min Est GFR (Non-Af Amer) 53.1 ml/min BUN/Creatinine Ratio 23.1 H (10-20) Glucose 144 H (70-99(Fasting)) mg/dl Calcium 8.8 (8.6-10.3) mg/dl Total Bilirubin 1.1 H (0.2-1.0) mg/dl AST 41 H (13-39) U/L ALT 98 H (7-52) U/L Alkaline Phosphatase 86 (34-104) U/L Troponin I High Sens 140.3 H* 137.3 H* (0-14) pg/ml B-Natriuretic Peptide 1757 H (0-100) pg/ml Total Protein 6.7 (6.0-8.3) gm/dl Albumin 3.9 (3.4-5.0) gm/dl Globulin 2.8 (2.5-4.0) gm/dl Albumin/Globulin Ratio 1.4 (0.9-2) Administered Medications Enoxaparin Sodium (Enoxaparin Inj 40 Mg/0.4 Ml Syr) 40 mg SQ PM [facility] Stop: 02/07/24 23:45 Last Admin: 01/09/24 00:02 Dose: Not Given Documented By: JENNIFER Insulin Aspart (Insulin Aspart Per Unit Charge) 0 units SC ACHS [facility] Stop: 02/07/24 23:45 Last Admin: 01/09/24 00:26 Dose: Not Given Documented By: JENNIFER Co-signed By: TJG Discontinued Medications Furosemide (Furosemide 40 Mg/4 Ml Vial) 40 mg IV ONE ONE Stop: 01/08/24 18:52 Last Admin: 01/08/24 19:04 Dose: 40 mg Documented By: JENNIFER Metoprolol Tartrate (Metoprolol Tartrate 1 Mg/Ml Vial) 5 mg IV NOW STA Stop: 01/08/24 18:52 Last Admin: 01/08/24 19:05 Dose: 5 mg Documented By: JENNIFER Imaging Data Radiologist's Impression: Chest X-Ray 01/08/24 16:52 XR chest 1V not portable CLINICAL HISTORY: Chest pain, nonspecific TECHNIQUE: Single frontal radiograph of the chest was obtained. Comparison: Comparison is made to chest radiograph 01/01/2024 FINDINGS: No lines and tubes are seen. Cardiomegaly is noted. The aortic arch is calcified. There is prominence and cephalization of the vasculature with Darian B lines seen. Small bilateral pleural effusions are seen. IMPRESSION: Cardiomegaly and moderate pulmonary edema. Small bilateral pleural effusions. ACT 112: Negative or not required by law. Electronically signed by: Madhu Thomas M.D. 01/08/2024 5:27 PM Discharge Plan Visit Data Chief Complaint: Swelling/Edema to Extremity Stated Complaint: LEGS/FEET FILLED WITH FLUID/SWOLLEN ED Provider: Roland Fowler Discharge Problem: Acute exacerbation of CHF (congestive heart failure), Leg swelling, Bilateral pleural effusion Discharge Instructions Interventions: ED Discharge Assessment Last Done: 01/08/24 23:47 Discharge Problem: Acute exacerbation of CHF (congestive heart failure) Qualifiers: Heart failure type: unspecified Qualified Code(s): I50.9 - Heart failure, unspecified
[2024-01-08] MEDS: FUROSEMIDE 40 MG/4 ML VIAL IV ONE (19:04)
[2024-01-08] MEDS: METOPROLOL TARTRATE 1 MG/ML VIAL IV STA (19:05)
[2024-01-08] MEDS ORDERED: DEXTROSE 50% 50 ML SYRINGE IV PRN (23:46)
[2024-01-08] MEDS ORDERED: ACETAMINOPHEN 325 MG TAB PO PRN (23:46)
[2024-01-08] MEDS ORDERED: POLYETHYLENE (MIRALAX) 17 GM PACK PO PRN (23:46)
[2024-01-08] MEDS ORDERED: GLUCOSE 10 TAB/TUBE PO PRN (23:46)
[2024-01-08] MEDS ORDERED: NITROGLYCERIN SL 0.4 MG/TAB TAB SL PRN ×2 (23:46)
[2024-01-08] MEDS ORDERED: GLUCAGON FOR INJ 1 MG VIAL SQ PRN (23:46)
[2024-01-08] MEDS ORDERED: GLUCOSE 40% GEL 15 GM TUBE PO PRN (23:46)
[2024-01-08] MEDS ORDERED: CARBOHYDRATES FOR HYPOGLYCEMIA PO PRN (23:46)
[2024-01-09] MEDS: ENOXAPARIN INJ 40 MG/0.4 ML SYR SQ SCH (00:02)
[2024-01-09] MEDS: INSULIN ASPART PER UNIT CHARGE SC SCH (00:26)
[2024-01-09 04:35] LABS: Basophils % (auto) 0.9 %; Eosinophils # (auto) 0.16 K/uL (0.00-0.50); Eosinophils % (auto) 1.4 %; Hematocrit (blood only) 38.8 % (37.0-47.0); Hemoglobin 12.9 g/dl (12.0-16.0); Immature Granulocytes # (auto) 0.04 K/uL (0.01-0.20); Immature Granulocytes % (auto) 0.4 %; Lymphocytes # (auto) 2.57 K/uL (1.20-3.40); Lymphocytes % (auto) 22.7 %; Mean Corpuscular Hemoglobin 26.8 pg (25.0-34.0); Mean Corpuscular Hgb Conc 33.2 g/dL (32.0-36.0); Mean Corpuscular Volume 80.5 fL (80.0-100.0); Monocytes # (auto) 0.74 K/uL (0.11-0.59); Monocytes % (auto) 6.5 %; Neutrophils % (auto) 68.1 %; Platelet Count 208 K/uL (130-400); RDW Coefficient of Variation 14.1 % (11.5-14.5); Red Blood Count 4.82 M/uL (4.20-5.40); White Blood Count 11.31 K/ul (4.8-10.8)
[2024-01-09 04:45] LABS: BUN Creatinine Ratio 30.1 (10-20); Calcium 8.4 mg/dl (8.6-10.3); Creatinine Clr Calc Pharmacy 48.6 ml/min; Est GFR (African American) 73.7 ml/min; Est GFR (Non-African American) 63.6 ml/min; Magnesium 1.5 mg/dl (1.7-2.4); Potassium 3.6 mmol/L (3.5-5.1)
[2024-01-09 04:53] LABS: Troponin I High Sensitivity 127.6 pg/ml (0-14)
--- NOTE | 2024-01-09 05:11 | History & Physical Report ---
Date of Service January 08, 2024 Assessment & Plan (1) Acute on chronic heart failure with reduced ejection fraction and diastolic dysfunction: Plan: 68-year-old female with past med history significant for type 1 diabetes, diabetic polyneuropathy, hyperlipidemia, chronic rhinitis, CAD s/p stent, hypertension, history of CVA, aphasia poststroke, Schatzki"s ring, Mnire's disease,MELAS, cochlear implant in place, was recently in the hospital for acute CHF and pleural effusions presents again with shortness of breath and lower extremity edema. Patient lives with her son. Patient is somewhat difficult to understand because of her history of stroke and dysarthria. Son states she is difficult to understand but generally he can understand her with some difficulty. But today again he noticed swelling in the legs and also complaining of shortness of breath. Patient denies any chest pain. No fevers. No nausea or vomiting. Appetite is okay. Can eat regular food as per son. No diarrhea or constipation. No complaints of abdominal pain as per son. As per son she ambulates without support but today she was weak to ambulate. Currently hemodynamics are okay. Seems noncompliant with medications last admission she was restarted on aspirin and metoprolol succinate Acute on chronic heart failure with reduced ejection fraction and diastolic dysfunction Presents with shortness of breath and lower EXTR edema Chest x-ray shows pulmonary edema and small bilateral pleural effusions Echo done on December 29, 2023 shows EF of 35 to 40%. Moderate to severe mitral regurgitation. Received IV Lasix 40 mg in the ER We will continue with IV Lasix 40 mg twice daily Daily weights, I's and O's Monitoring telemetry floor Consult cardiology in a.m. for further recommendations Type 1 diabetes Continue home Lantus Sliding scale Close monitor blood sugars History of CAD s/p stent On aspirin, metoprolol succinate Not on statin due to history of MELAS. On Repatha Elevated troponin Mostly demand ischemia We will follow serial enzymes History of hypertension metoprolol succinate and Lasix Amlodipine was discontinued last admission Will monitor MELAS(mitochondrial encephalopathy, lactic acidosis and strokelike episodes) Statin contraindicated. History of strokes with residual expressive and receptive aphasia Currently ambulates without support as per son. On aspirin. PT OT when stable Hyperlipidemia On Repatha injections. DVT prophylaxis On Lovenox Disposition Telemetry CODE STATUS. Full code if chance of recovery as per my discussion with the son History of Present Illness Chief Complaint: Shortness of breath and lower extremity edema Primary Care Provider: Amairani Owen MD 68-year-old female with past med history significant for type 1 diabetes, diabetic polyneuropathy, hyperlipidemia, chronic rhinitis, CAD s/p stent, hypertension, history of CVA, aphasia poststroke, Schatzki"s ring, Mnire's disease,MELAS, cochlear implant in place, was recently in the hospital for acute CHF and pleural effusions presents again with shortness of breath and lower extremity edema. Patient lives with her son. Patient is somewhat difficult to understand because of her history of stroke and dysarthria. Son states she is difficult to understand but generally he can understand her with some difficulty. But today again he noticed swelling in the legs and also complaining of shortness of breath. Patient denies any chest pain. No fevers. No nausea or vomiting. Appetite is okay. Can eat regular food as per son. No diarrhea or constipation. No complaints of abdominal pain as per son. As per son she ambulates without support but today she was weak to ambulate. Currently hemodynamics are okay. Past medical history. As mentioned above Past surgical history. S/p coronary artery stent placement, s/p left cochlear implant in 2015, left heart catheterization, colonoscopy, cholecystectomy, hysterectomy. Family history. Mother had CAD. Father had CAD. Daughter has MELAS(mitochondrial encephalopathy, lactic acidosis and strokelike episodes), Social history. Former smoker. No alcohol use. No drug use. Allergies Allergy/AdvReac Type Severity Reaction Status Date / Time atorvastatin AdvReac Intermediate myalgias, Verified 01/08/24 21:34 dysarthria prednisone AdvReac Intermediate metabolic-h Verified 01/08/24 21:34 yperglycemi a Home Medications Medication Instructions Recorded Confirmed Type insulin aspart U-100 100 unit/mL 6 unit subcut TIDM 05/14/20 01/08/24 History (3 mL) subcutaneous pen (Novolog FlexPen U-100 Insulin aspart) insulin glargine 100 unit/mL (3 20 unit subcut HS 05/14/20 01/08/24 History mL) subcutaneous pen (Lantus Solostar U-100 Insulin) vit A 12,500 unit-zinc 12.5 1 cap PO QAM 05/14/20 01/08/24 History rj-jeowrc-mvnoi-bilberry-herb #261 capsule (Lipotriad Vision Support) aspirin 81 mg tablet,delayed 81 mg PO QAM #90 tabs 05/17/20 01/08/24 Rx release nitroglycerin 0.4 mg sublingual 0.4 mg sublingual UD PRN chest 05/17/20 01/08/24 Rx tablet (Nitrostat) pain #30 tabs evolocumab 140 mg/mL subcutaneous 140 mg subcut .[id number] 08/10/21 01/08/24 History pen injector (Repatha SureClick) coenzyme Q10 100 mg capsule 100 mg PO DAILY 01/14/22 01/08/24 History (CoQ-10) furosemide 20 mg tablet 20 mg PO MOWEFR #14 tabs 01/02/24 01/08/24 Rx metoprolol succinate 25 mg 12.5 mg (1/2 x 25 mg) PO BID #30 01/02/24 01/08/24 Rx tablet,extended release 24 hr tabs amlodipine 2.5 mg tablet 2.5 mg PO DAILY 01/08/24 01/08/24 History Past Med/Surg History Medical History (Updated 01/09/24 @ 00:53 by Roland Fowler MD) Bilateral pleural effusion Unspecified hereditary retinal dystrophy Bilateral sensorineural hearing loss Bilateral myopia 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 Degeneration of cervical intervertebral disc History of TMJ disorder Hemiplegia Diabetic polyneuropathy Aphasia as late effect of cerebrovascular accident CAD (coronary artery disease) Statin intolerance Atherosclerosis of coronary artery Macular degeneration Mnire's disease Schatzki's ring MELAS (mitochondrial encephalopathy, lactic acidosis and stroke-like episodes) HLD (hyperlipidemia) Type 1 diabetes mellitus Hypertension Surgical History S/P coronary artery stent placement History of heart artery stent History of cochlear implant Left in 2014 History of left heart catheterization 07/2019 which revealed 30% proximal LAD otherwise clean coronaries History of colonoscopy with polypectomy History of cholecystectomy History of hysterectomy Family History Mother Coronary heart disease, Onset Age: 70 Father Coronary heart disease, Onset Age: 50 Daughter MELAS (mitochondrial encephalopathy, lactic acidosis and stroke-like episodes) Social History Smoking Status: Never smoker Tobacco Type: Cigarettes Second Hand Exposure: No; Do You Dip or Chew Tobacco: No; Hx Alcohol Use: No Hx Substance Use: No Preferred Language: Singaporean Communication Ability: Effective Communication Ability Comment: Cochlear implant, communication difficult at times Hearing Ability: Cochlear Implant Rn Emergency Required: No Beliefs That Will Affect Care: None marital status: Current Living Situation: Family Current Living Situation Comment: with son Lee current occupational status: retired and disabled How many Children do You have: 2 Feels Safe at Home: Yes Safety Concerns: Feels Safe At This Time Assistive Devices: Cane, Glasses and Other Review of Systems Review of Systems: Other Physical Exam Physical Exam: General- Some what restless Head- atraumatic Eyes- PERRL. ENT- oropharynx clear Neck- supple, no JVD. Lungs- clear to auscultation mild bibasilar crackles, no wheezing Heart- regular rhythm; no murmur, no gallop. Abdomen- normal bowel sounds, soft, nontender, no distension. Extremities- b/l lower extremity edema present. No erythema seen. Neuro- alert, oriented ; PERRL,; no facial palsy; obeys simple commands, moves extremities. Skin- warm & dry Results & Data Results & Data Vital Signs (Past 12 Hours) Vital Signs Temp Pulse Pulse Resp BP BP Pulse Ox 01/08/24 19:23 97 H 20 123/95 98 01/08/24 19:05 129 H 123/95 01/08/24 18:51 129 H 01/08/24 18:46 115 H 20 130/95 94 01/08/24 16:49 36.4 C L 95 H 22 123/81 96 O2 Del Method 01/08/24 19:23 Room Air 01/08/24 19:05 01/08/24 18:51 01/08/24 18:46 Room Air 01/08/24 16:49 Room Air Diagnostic Findings Laboratory Results WBC 11.31 K/ul (4.8-10.8) H 01/09/24 04:16 RBC 4.82 M/uL (4.20-5.40) 01/09/24 04:16 Hgb 12.9 g/dl (12.0-16.0) 01/09/24 04:16 Hct 38.8 % (37.0-47.0) 01/09/24 04:16 MCV 80.5 fL (80.0-100.0) 01/09/24 04:16 MCH 26.8 pg (25.0-34.0) 01/09/24 04:16 MCHC 33.2 g/dL (32.0-36.0) 01/09/24 04:16 RDW Std Deviation 41.0 fL (36.4-46.3) 01/09/24 04:16 RDW Coeff of Marj 14.1 % (11.5-14.5) 01/09/24 04:16 Plt Count 208 K/uL (130-400) 01/09/24 04:16 MPV 12.0 fL (9.4-12.4) 01/09/24 04:16 Immature Gran % (Auto) 0.4 % 01/09/24 04:16 Neut % (Auto) 68.1 % 01/09/24 04:16 Lymph % (Auto) 22.7 % 01/09/24 04:16 Edmonson % (Auto) 6.5 % 01/09/24 04:16 Eos % (Auto) 1.4 % 01/09/24 04:16 Baso % (Auto) 0.9 % 01/09/24 04:16 Neut # (Auto) 7.70 K/uL (1.40-6.50) H 01/09/24 04:16 Lymph # (Auto) 2.57 K/uL (1.20-3.40) 01/09/24 04:16 [place]on # (Auto) 0.74 K/uL (0.11-0.59) H 01/09/24 04:16 Eos # (Auto) 0.16 K/uL (0.00-0.50) 01/09/24 04:16 Baso # (Auto) 0.10 K/uL (0.00-0.20) 01/09/24 04:16 Immature Gran # (Auto) 0.04 K/uL (0.01-0.20) 01/09/24 04:16 PT 13.2 Seconds (9.0-12.0) H 01/08/24 17:25 INR 1.2 (0.9-1.1) H 01/08/24 17:25 APTT 28 Seconds (21-31) 01/08/24 17:25 PTT Ratio 1.0 01/08/24 17:25 Sodium 136 mmol/L (136-145) 01/09/24 04:16 Potassium 3.6 mmol/L (3.5-5.1) 01/09/24 04:16 Chloride 100 mmol/L (98-107) 01/09/24 04:16 Carbon Dioxide 24 mmol/L (21-32) 01/09/24 04:16 Anion Gap 12 (3-11) H 01/09/24 04:16 BUN 28 mg/dl (6-23) H 01/09/24 04:16 Creatinine 0.93 mg/dl (0.6-1.2) 01/09/24 04:16 Est Cr Clr Drug Dosing 48.6 ml/min 01/09/24 04:16 Est GFR ( Amer) 73.7 ml/min 01/09/24 04:16 Est GFR (Non-Af Amer) 63.6 ml/min 01/09/24 04:16 BUN/Creatinine Ratio 30.1 (10-20) H 01/09/24 04:16 Glucose 100 mg/dl (70-99(Fasting)) H 01/09/24 04:16 POC Glucose 121 mg/dl (70-99) H 01/09/24 00:22 Calcium 8.4 mg/dl (8.6-10.3) L 01/09/24 04:16 Magnesium 1.5 mg/dl (1.7-2.4) L 01/09/24 04:16 Total Bilirubin 1.1 mg/dl (0.2-1.0) H 01/08/24 17:25 AST 41 U/L (13-39) H 01/08/24 17:25 ALT 98 U/L (7-52) H 01/08/24 17:25 Alkaline Phosphatase 86 U/L (34-104) 01/08/24 17:25 Troponin I High Sens 127.6 pg/ml (0-14) H* 01/09/24 04:16 B-Natriuretic Peptide 1757 pg/ml (0-100) H 01/08/24 17:25 Total Protein 6.7 gm/dl (6.0-8.3) 01/08/24 17:25 Albumin 3.9 gm/dl (3.4-5.0) 01/08/24 17:25 Globulin 2.8 gm/dl (2.5-4.0) 01/08/24 17:25 Albumin/Globulin Ratio 1.4 (0.9-2) 01/08/24 17:25 Impressions Chest X-Ray 01/08/24 16:52 XR chest 1V not portable CLINICAL HISTORY: Chest pain, nonspecific TECHNIQUE: Single frontal radiograph of the chest was obtained. Comparison: Comparison is made to chest radiograph 01/01/2024 FINDINGS: No lines and tubes are seen. Cardiomegaly is noted. The aortic arch is calcified. There is prominence and cephalization of the vasculature with Darian B lines seen. Small bilateral pleural effusions are seen. IMPRESSION: Cardiomegaly and moderate pulmonary edema. Small bilateral pleural effusions. ACT 112: Negative or not required by law. Electronically signed by: Madhu Thomas M.D. 01/08/2024 5:27 PM ECG Additional Comments: ECG. Sinus tachycardia rate of 120. Possible left atrial enlargement. No significant change was found. Code Status & VTE Plan VTE Prophylaxis Plan VTE Prophylaxis will be ordered: Yes
[2024-01-09 06:59] LABS: Estimated Average Glucose 189 mg/dl; Hemoglobin A1C 8.2 % (4.5-5.6)
--- OUTSIDE RECORDS SUMMARY | 2024-01-09 08:16 | External Medical Summary | Summary of Care ---
Author Name Unknown Organization [facility] Address [address] [place] [address] Phone [phone] Care Team Providers Care Screener Perfumer Name Role Phone Amairani Boyd MD Primary Care Prov ider Reason for Visit * Reason Comments Dosage Adjustment Via Phone (anticoag Cl inic) Hyperlipidemia Encounter Details Date Type Department Care Team (Late st Contact Info) Description 01/01/2024 7:00 AM EST Pharmacy Cardiology [address] [place] [address] [facility] [address] [place] [address] Dyslipidemia, goal LDL below 70* Allergies Active Allergy Reactions Criticality Noted Date Comments Atorvastatin Other (Please comment) 05/17/2014 Myalgias, dysarthria Prednisone Other (Please comment) 04/13/2013 Metabolic-hyperglycemia documented as of this encounter (statuses as of 01/01/2024) Medications Medication Sig Dispensed Refills Start Date [...] 2.5 MG Oral Tablet (Norvasc)Indication s:Atherosclerosis of [place] coronary artery of [place] heart without angina pectoris,HTN, goal below 140/90,S/P coronary artery stent placement TAKE ONE TABLET BY MOUTH EVERY DAY 90 Tablet 3 12/21/2022 03/11/2024 Active Glucose Blood In Vitro StripIndications:Ty pe 1 diabetes mellitus with hemoglobin A1c goal of 7.0%-8.0% ([facility]) USE TO TEST BLOOD SUGAR 4 TIMES DAILY 600 Strip 2 06/11/2023 Active NovoLOG FlexPen 100 UNIT/ML Subcutaneous Solution Pen-injectorIndicat ions:Type 1 diabetes mellitus with hemoglobin A1c goal of 7.0%-8.0% ([facility]) INJECT 6 UNITS UNDER THE SKIN PRIOR TO MEALS 30 mL 0 09/18/2023 Active BD Pen Needle Mini U/F 31G X 5 MM (Insulin Pen Needle)Indications: Type 1 diabetes mellitus with hemoglobin A1c goal of 7.0%-8.0% ([facility]) Use 4 times a day with insulin [...] as of this encounter (statuses as of 01/01/2024) Active Problems Problem Noted Date Diagnosed Date Cochlear implant in place 09/06/2022 Aphasia, post-stroke 03/23/2022 Hemiplegia, post-stroke 03/23/2022 Receptive aphasia 02/15/2022 History of [place] (myocardial infarction) 12/15/2020 S/P coronary artery stent [...] Lipid Taxonomy. Coronary artery disease invo lving [place] coronary artery of [place] heart without angina pectoris 08/11/2009 Chronic otitis externa 06/02/2008 ADVANCE DIRECTIVE INFORMATION 04/22/2007 Overview: No, Advance Directive brochure given to patient at prior appointment. Meniere's disease of both ears Sensorineural hearing loss, bilateral Temporomandibular joint disorders, unspecified Degeneration of cervical intervertebral disc Schatzki's ring documented as of this encounter (statuses as of 01/01/2024) Resolved Problems Problem Noted Date Diagnosed Date [...] for Patients with Cardiovascular Disease Project # [id number] PI: Selina Robert MD Please call [phone] with study related questions GENOMICS CARDIO RESEARCH OTHER*[id number] 08/15/2009 01/01/2017 Overview: Renamed Per Clinical Trials Billing Project. Study Titile: Genomics Markers for Patients with Cardiovascular Disease Project # [id number] PI: Selina Robert MD Please call [phone] with study related questions Abnormal electrocardiogram 07/20/2009 [...] as of this encounter (statuses as of 01/01/2024) Immunizations Name Administration Dates Next Due DTaP Dipth/Tet/Acell Pertussis (Infanrix), Peds 08/16/2021 Hepatitis B, 20+ yrs 12/14/2014,07/06/2014,05/17 Pneumococcal Conjugate Vacc, 13 Valent (Prevnar) 08/16/2017 Pneumococcal Conjugate Vacci ne, 20-valent ([id number]) 10/30/2022 Pneumococcal Polysaccharide PPV23 (Pneumovax) 07/17/2006 Seasonal [...] this encounter Progress Notes * Ai Crowley, [facility] - 01/01/2024 8:54 AM EST MTM HLD Update Contacts Type Contact Phone/Fax 01/01/2024 08:56 AM EST Phone (Outgoing) Shanda Chavez (Self) [phone] (M) Left Message 01/01/2024 08:57 AM EST Phone (Outgoing) Shanda Chavez (Self) [phone] (M) Left Message Attempted several times to reach pt for lipid panel and continuation of care. Will sign off as I have been unable to reach patient If pt returns call/obtains labs, I am happy to re-establish care Labs Due: (ordered) Lipid panel 09/28/23 HbA1c due now Microalbumin due now Follow up: none; Mtm will sign off Ai Crowley Pharm D Clinical MTDM Pharmacist Cardiology 01/01/2024,8:55 AM documented in this encounter Plan of Treatment Upcoming Encounters Date Type Department Care Team (Late st Contact Info) Description 01/08/2024 10:40 AM EST Office Visit [place] [facility] [place] [facility] [place] [address] [facility] [place] [address] Jennifer Oviedo PA-C [address] [facility] [place] [address] Scheduled Procedures Name Priority Associated Diagnoses Date/Ti me COLONOSCOPY FLEXIBLE PROXIMAL DIAGNOSTIC Recall History of colon polyps Health Maintenance Due Date Last Done Comments COVID-19 Vaccine (#1) 04/12/1956 Mammogram 01/18/2022 01/18/2021, 11/26, 05/25/2019, Additional history exists Albumin/Creatinine Ratio 02/15/2023 022, 02/06/2021, 09/04/2019, Additional history exists COLONOSCOPY-EVERY 5 YRS AGES 18-100 04/29/2023 04/29/2018, 04/29/2018, 04/17/2013, Additional history exists HbA1c 05/01/2023 10/31/2022, 01/24, 08/30/2021, Additional history exists Influenza Vaccine (FLU shot) (#1) 2023 08/21/2022, 08/16/2021, 09/29/2020, Additional history exists GFR 10/31/2023 10/31/2022, 01/23, 02/01/2022, Additional history exists Diabetic Eye Exam 12/25/2023 12/25/2022, , 08/14/2022, Additional history exists Depression Screening 03/01/2024 03/01/2023 Diabetic Foot Exam 03/01/2024 03/01/2023, 0 03/23/2022, 01/10/2021, Additional history exists DXA Scan 02/04/2025 02/04/2023, 01/23, 12/29/2019, Additional history exists DTaP,Tdap,and Td Vaccines (3 - Td or [...] this encounter Medical Devices Implanted Type Area Handstitching Machine Armhole Feller Device Identifier Shelf Expiration Date Model / Serial / Lot Nucleus [id number] Cochlear Implant With Contour Advance Electrode Implanted:Qty: 1 on 10/04/2015 by Tonny Joshua MD at [facility] Left: Ear [facility] 06/14/2017 [id number] / [id number] / Description:[id number] documented as of this [...] the patient have Health Care Power of Turntable Engineer? No Care Teams Screener Perfumer Relationship Specialty Start Date End Date Amairani Boyd MD [address] [place] [address] [place] [address] PCP - General Family Medicine 12/23/19 documented as of this encounter
--- OUTSIDE RECORDS SUMMARY | 2024-01-09 08:16 | External Medical Summary | Summary of Care ---
Author Name Unknown Organization [facility] Address [address] [place] [address] Phone [phone] Care Team Providers Care Blanking Press Operator Name Role Phone Amairani Boyd MD Primary Care Prov ider Encounter Details Date Type Department Care Team (Late st Contact Info) Description 01/07/2024 Orders Only PATIENT PORTAL DO NOT DELETE THIS DEPT USED BY [place] [id number] Allergies Active Allergy Reactions Criticality Noted Date Comments Atorvastatin Other (Please comment) 05/17/2014 Myalgias, dysarthria Prednisone Other (Please comment) 04/13/2013 Metabolic-hyperglycemia documented as of this encounter (statuses as of 01/07/2024) Medications Medication Sig Dispensed Refills Start Date [...] 2.5 MG Oral Tablet (Norvasc)Indication s:Atherosclerosis of [place] coronary artery of [place] heart without angina pectoris,HTN, goal below 140/90,S/P coronary artery stent placement TAKE ONE TABLET BY MOUTH EVERY DAY 90 Tablet 3 12/21/2022 03/11/2024 Active Glucose Blood In Vitro StripIndications:Ty pe 1 diabetes mellitus with hemoglobin A1c goal of 7.0%-8.0% ([facility]) USE TO TEST BLOOD SUGAR 4 TIMES DAILY 600 Strip 2 06/11/2023 Active NovoLOG FlexPen 100 UNIT/ML Subcutaneous Solution Pen-injectorIndicat ions:Type 1 diabetes mellitus with hemoglobin A1c goal of 7.0%-8.0% ([facility]) INJECT 6 UNITS UNDER THE SKIN PRIOR TO MEALS 30 mL 0 09/18/2023 Active BD Pen Needle Mini U/F 31G X 5 MM (Insulin Pen Needle)Indications: Type 1 diabetes mellitus with hemoglobin A1c goal of 7.0%-8.0% ([facility]) Use 4 times a day with insulin [...] as of this encounter (statuses as of 01/07/2024) Active Problems Problem Noted Date Diagnosed Date Cochlear implant in place 09/06/2022 Aphasia, post-stroke 03/23/2022 Hemiplegia, post-stroke 03/23/2022 Receptive aphasia 02/15/2022 History of [place] (myocardial infarction) 12/15/2020 S/P coronary artery stent [...] Lipid Taxonomy. Coronary artery disease invo lving [place] coronary artery of [place] heart without angina pectoris 08/11/2009 Chronic otitis externa 06/02/2008 ADVANCE DIRECTIVE INFORMATION 04/22/2007 Overview: No, Advance Directive brochure given to patient at prior appointment. Meniere's disease of both ears Sensorineural hearing loss, bilateral Temporomandibular joint disorders, unspecified Degeneration of cervical intervertebral disc Schatzki's ring documented as of this encounter (statuses as of 01/07/2024) Resolved Problems Problem Noted Date Diagnosed Date [...] for Patients with Cardiovascular Disease Project # [id number] PI: Selina Robert MD Please call [phone] with study related questions GENOMICS CARDIO RESEARCH OTHER*[id number] 08/15/2009 01/01/2017 Overview: Renamed Per Clinical Trials Billing Project. Study Titile: Genomics Markers for Patients with Cardiovascular Disease Project # [id number] PI: Selina Robert MD Please call [phone] with study related questions Abnormal electrocardiogram 07/20/2009 [...] as of this encounter (statuses as of 01/07/2024) Immunizations Name Administration Dates Next Due DTaP Dipth/Tet/Acell Pertussis (Infanrix), Peds 08/16/2021 Hepatitis B, 20+ yrs 12/14/2014,07/06/2014,05/17 Pneumococcal Conjugate Vacc, 13 Valent (Prevnar) 08/16/2017 Pneumococcal Conjugate Vacci ne, 20-valent ([id number]) 10/30/2022 Pneumococcal Polysaccharide PPV23 (Pneumovax) 07/17/2006 Seasonal [...] on file documented as of this encounter Plan of Treatment Upcoming Encounters Date Type Department Care Team (Late st Contact Info) Description 01/08/2024 10:40 AM EST Office Visit Neu[facility] [address] [facility] [place] [address] Jennifer Oviedo PA-C [address] [facility] [place] [address] 01/09/2024 11:20 AM EST Office Visit Family Medicine [address] [place] [address] Leeanne Maher PA-C [address] [place] [address] [place] [address] Scheduled Procedures Name Priority Associated Diagnoses Date/Ti me COLONOSCOPY FLEXIBLE PROXIMAL DIAGNOSTIC Recall History of colon polyps Health Maintenance Due Date Last Done Comments COVID-19 Vaccine (#1) 04/12/1956 Mammogram 01/18/2022 01/18/2021, 11/26, 05/25/2019, Additional history exists Albumin/Creatinine Ratio 02/15/2023 022, 02/06/2021, 09/04/2019, Additional history exists COLONOSCOPY-EVERY 5 YRS AGES 18-100 04/29/2023 04/29/2018, 04/29/2018, 04/17/2013, Additional history exists HbA1c 05/01/2023 10/31/2022, 03/02/2022, 08/30/2021, Additional history exists Influenza Vaccine (FLU [...] this encounter Medical Devices Implanted Type Area Fishing Tool Supervisor Device Identifier Shelf Expiration Date Model / Serial / Lot Nucleus [id number] Cochlear Implant With Contour Advance Electrode Implanted:Qty: 1 on 10/04/2015 [place]ny Joshua [place] [facility] [place]: Ear [employer] 06/14/2017 [id number] / [id number] / Description:[id number] documented as of this encounter Advance Directives Latest Code Status on File Code Status Date Activated Date Inactivated Comments Full Code 10/04/2015 11:35 AM 10/05/2015 4:32 PM Th is order reflects the patients wishes and were consensually agreed upon. Question Answer Comments Discussion of Advance Directives occurred with: Not Discussed Does the patient have a Living Will? No Does the patient have Health Care Power of Generator Repairer? No Care Teams Blanking Press Operator Relationship Specialty Start Date End Date Amairani Boyd MD [address] [place] [address] [place] [address] PCP - General Family Medicine 12/23/19 documented as of this encounter
--- OUTSIDE RECORDS SUMMARY | 2024-01-09 08:16 | External Medical Summary | Summary of Care ---
Author Name Unknown Organization [facility] Address [address] [place] [address] Phone [phone] Care Team Providers Care Manager Social Work Name Role Phone Amairani Boyd MD Primary Care Prov ider Reason for Visit * Reason Onset Date Comments Information 12/30/2023 Encounter Details Date Type Department Care Team (Late st Contact Info) Description 12/30/2023 Telephone Cardiology, [facility] [address] [place] [address] Quynh Marrero PA-C [address] [place] [address] Information Allergies Active Allergy Reactions Criticality Noted Date Comments Atorvastatin Other (Please comment) 05/17/2014 Myalgias, dysarthria Prednisone Other (Please comment) 04/13/2013 Metabolic-hyperglycemia documented as of this encounter (statuses as of 12/30/2023) Medications Medication Sig Dispensed Refills Start Date [...] 2.5 MG Oral Tablet (Norvasc)Indication s:Atherosclerosis of kag[place] coronary artery of [place] heart without angina pectoris,HTN, goal below 140/90,S/P coronary artery stent placement TAKE ONE TABLET BY MOUTH EVERY DAY 90 Tablet 3 12/21/2022 03/11/2024 Active Glucose Blood In Vitro StripIndications:Ty pe 1 diabetes mellitus with hemoglobin A1c goal of 7.0%-8.0% ([facility]) USE TO TEST BLOOD SUGAR 4 TIMES DAILY 600 Strip 2 06/11/2023 Active NovoLOG FlexPen 100 UNIT/ML Subcutaneous Solution Pen-injectorIndicat ions:Type 1 diabetes mellitus with hemoglobin A1c goal of 7.0%-8.0% ([facility]) INJECT 6 UNITS UNDER THE SKIN PRIOR TO MEALS 30 mL 0 09/18/2023 Active BD Pen Needle Mini U/F 31G X 5 MM (Insulin Pen Needle)Indications: Type 1 diabetes mellitus with hemoglobin A1c goal of 7.0%-8.0% ([facility]) Use 4 times a day [...] as of this encounter (statuses as of 12/30/2023) Active Problems Problem Noted Date Diagnosed Date Cochlear implant in place 09/06/2022 Aphasia, post-stroke 03/23/2022 Hemiplegia, post-stroke 03/23/2022 Receptive aphasia 02/15/2022 History of [place] (myocardial infarction) 12/15/2020 S/P coronary artery stent [...] Lipid Taxonomy. Coronary artery disease invo lving kaguyuk coronary artery of kaguy[place] heart without angina pectoris 08/11/2009 Chronic otitis externa 06/02/2008 ADVANCE DIRECTIVE INFORMATION 04/22/2007 Overview: No, Advance Directive brochure given to patient at prior appointment. Meniere's disease of both ears Sensorineural hearing loss, bilateral Temporomandibular joint disorders, unspecified Degeneration of cervical intervertebral disc Schatzki's ring documented as of this encounter (statuses as of 12/30/2023) Resolved Problems Problem Noted Date Diagnosed Date [...] for Patients with Cardiovascular Disease Project # [id number] PI: Selina Robert MD Please call [phone] with study related questions GENOMICS CARDIO RESEARCH OTHER*[id number] 08/15/2009 01/01/2017 Overview: Renamed Per Clinical Trials Billing Project. Study Titile: Genomics Markers for Patients with Cardiovascular Disease Project # [id number] PI: Selina Robert MD Please call [phone] with study related questions Abnormal electrocardiogram 07/20/2009 [...] as of this encounter (statuses as of 12/30/2023) Immunizations Name Administration Dates Next Due DTaP Dipth/Tet/Acell Pertussis (Infanrix), Peds 08/16/2021 Hepatitis B, 20+ yrs 12/14/2014,07/06/2014,05/17 Pneumococcal Conjugate Vacc, 13 Valent (Prevnar) 08/16/2017 Pneumococcal Conjugate Vacci ne, 20-valent ([id number]) 10/30/2022 Pneumococcal Polysaccharide PPV23 (Pneumovax) 07/17/2006 Seasonal [...] encounter Miscellaneous Notes * Telephone Encounter - Caleb Salazar OSA - 12/30/2023 10:07 AM EST Patient is in [facility], please cancel and reschedule the NM Study, Thank you. * Telephone Encounter - Snehal Mead LPN - 12/30/2023 9:17 AM EST Currently inpatient at [facility]. Has nuclear study tomorrow 12/31/23 that will need to be cancelled. documented in this encounter Plan of Treatment Upcoming Encounters Date Type Department Care Team (Late st Contact Info) Description 12/31/2023 10:30 AM EST Imaging [facility] 2nd Floor Cardiology, [place] [address] [facility] [place] [address] Gw, Excess Time Radiology [address] [place] [address] 01/01/2024 7:00 AM EST Pharmacy Cardiology [place] [address] [place] [address] [facility] [address] [place] [address] 01/08/2024 10:40 AM EST Office Visit Neurology Y[facility]f [place] [address] [place] [address] Jennifer Oviedo PA-C [address] [place] [address] Scheduled Procedures Name Priority Associated Diagnoses Date/Ti [...] this encounter Medical Devices Implanted Type Area Family Manager Device Identifier Shelf Expiration Date Model / Serial / Lot Nucleus [id number] Cochlear Implant With Contour Advance Electrode Implanted:Qty: 1 on 10/04/2015 by Tonny Joshua MD at [facility] Left: Ear [employer] 06/14/2017 [id number] / [id number] / Description:[id number] documented as of this encounter Advance Directives Latest Code Status on File Code Status Date Activated Date Inactivated Comments Full Code 10/04/2015 11:35 AM 10/05/2015 4:32 PM T his order reflects the patients wishes and were consensually agreed upon. Question Answer Comments Discussion of Advance Directives occurred with: Not Discussed Does the patient have a Living Will? No Does the patient have Health Care Power of Intensive Care Anaesthetist? No Care Teams Manager Social Work Relationship Specialty Start Date End Date Amairani Boyd MD [address] [place] [address] [place] [phone] PCP - General Family Medicine 12/23/19 documented as of this encounter
--- OUTSIDE RECORDS SUMMARY | 2024-01-09 08:16 | External Medical Summary | Summary of Care ---
Author Name Unknown Organization [facility] Address [address] [place] [address] Phone [phone] Care Team Providers Care Collection Systems Worker Name Role Phone Amairani Boyd MD Primary Care Prov ider Reason for Visit * Reason Onset Date Comments Hospital Follow-Up 01/02/2024 Encounter Details Date Type Department Care Team (Late st Contact Info) Description 01/02/2024 Telephone General Internal Medicine [facility] [address] [address] [address] Amairani Boyd MD [address] [place] [address] [place] [address] Hospital Follow-Up Allergies Active Allergy Reactions Criticality Noted Date Comments Atorvastatin Other (Please comment) 05/17/2014 Myalgias, dysarthria Prednisone Other (Please comment) 04/13/2013 Metabolic-hyperglycemia documented as of this encounter (statuses as of 01/06/2024) Medications Medication Sig Dispensed Refills Start Date [...] 2.5 MG Oral Tablet (Norvasc)Indication s:Atherosclerosis of [place] coronary artery of [place] heart without angina pectoris,HTN, goal below 140/90,S/P [...] as of this encounter (statuses as of 01/06/2024) Active Problems Problem Noted Date Diagnosed Date [...] Lipid Taxonomy. Coronary artery disease invo lving [place] coronary artery of [place] heart without angina pectoris 08/11/2009 Chronic otitis externa 06/02/2008 ADVANCE DIRECTIVE INFORMATION 04/22/2007 Overview: No, Advance Directive brochure given to patient at prior appointment. Meniere's disease of both ears Sensorineural hearing loss, bilateral Temporomandibular joint disorders, unspecified Degeneration of cervical intervertebral disc Schatzki's ring documented as of this encounter (statuses as of 01/06/2024) Resolved Problems Problem Noted Date Diagnosed Date [...] for Patients with Cardiovascular Disease Project # [id number] PI: Selina Robert MD Please call [phone] with study related questions GENOMICS CARDIO RESEARCH OTHER*[id number] 08/15/2009 01/01/2017 Overview: Renamed Per Clinical Trials Billing Project. Study Titile: Genomics Markers for Patients with Cardiovascular Disease Project # [id number] PI: Selina Robert MD Please call [phone] with study related questions Abnormal electrocardiogram 07/20/2009 [...] as of this encounter (statuses as of 01/06/2024) Immunizations Name Administration Dates Next Due DTaP Dipth/Tet/Acell Pertussis (Infanrix), Peds 08/16/2021 Hepatitis B, 20+ yrs 12/14/2014,07/06/2014,05/17 Pneumococcal Conjugate Vacc, 13 Valent (Prevnar) 08/16/2017 Pneumococcal Conjugate Vacci ne, 20-valent ([id number]) 10/30/2022 Pneumococcal Polysaccharide PPV23 (Pneumovax) 07/17/2006 Seasonal [...] encounter Miscellaneous Notes * Telephone Encounter - Amairani Boyd MD - 01/06/2024 9:21 AM EST Labs ordered. * Telephone Encounter - Shahriar Silver RN - 01/02/2024 2:36 PM EST Patient discharged to home 01/02/24 from [facility]. Discharging physician recommends repeat LFTs in 3-5 days as elevation is likely secondary to volume overload secondary to your heart failure. If elevation persists, may need oupt GI evaluation. Patient has follow up 01/09/24 with Leeanne Maher PA-C. Thank you documented in this encounter Plan of Treatment Upcoming Encounters Date Type Department Care Team (Late st Contact Info) Description 01/08/2024 10:40 AM EST Office Visit Neurology Michelle [place] [address] [facility] [place] [address] Jennifer Oviedo PA-C [address] [facility] [place] [address] 01/09/2024 11:20 AM EST Office Visit Family Medicine [address] [place] [address] Leeanne Maher PA-C [address] [place] [address] [place] [address] Scheduled Orders Name Type Priority Associated Diagnoses Orde r Schedule COMPREHENSIVE METABOLIC PANEL Lab Routine Elevated LFTs Expected: 01/06/2024 (Approximate), Expires: 01/05/2025 Scheduled Procedures Name Priority Associated Diagnoses Date/Ti [...] this encounter Medical Devices Implanted Type Area Lawn Service Manager Device Identifier Shelf Expiration Date Model / Serial / Lot Nucleus [id number] Cochlear Implant With Contour Advance Electrode Implanted:Qty: 1 on 10/04/2015 by Tonny Joshua MD at [facility] Left: Ear [employer] 06/14/2017 [id number] / [id number] / Description:[id number] documented as of this encounter Visit Diagnoses Diagnosis Elevated LFTs- Primary Other abnormal blood chemistry documented in this encounter Advance Directives Latest [...] the patient have Health Care Power of Taxicab Starter? No Care Teams Collection Systems Worker Relationship Specialty Start Date End Date Amairani Boyd MD [address] [place] [address] [place] [address] PCP - General Family Medicine 12/23/19 documented as of this encounter
--- OUTSIDE RECORDS SUMMARY | 2024-01-09 08:17 | External Medical Summary | Summary of Care ---
Author Name Unknown Organization [facility] Address [address] [place] [address] Phone [phone] Care Team Providers Care Over Hauler Helper Name Role Phone Amairani Body MD Primary Care Prov ider Reason for Visit * Reason Onset Date Comments Information 12/30/2023 Encounter Details Date Type Department Care Team (Late st Contact Info) Description 12/30/2023 Telephone Cardiology, [facility] [address] [place] [address] Quynh Marrero PA-C [address] [place] [address] Information Allergies Active Allergy Reactions Criticality Noted [...] 2.5 MG Oral Tablet (Norvasc)Indication s:Atherosclerosis of [place]upai coronary artery of havasupai heart without angina pectoris,HTN, goal below 140/90,S/P coronary artery stent placement TAKE ONE TABLET BY MOUTH EVERY DAY 90 Tablet 3 12/21/2022 03/11/2024 Active Glucose Blood In Vitro StripIndications:Ty pe 1 diabetes mellitus with hemoglobin A1c goal of 7.0%-8.0% ([facility]) USE TO TEST BLOOD SUGAR 4 TIMES DAILY 600 Strip 2 06/11/2023 Active NovoLOG FlexPen 100 UNIT/ML Subcutaneous Solution Pen-injectorIndicat ions:Type 1 diabetes mellitus with hemoglobin A1c goal of 7.0%-8.0% ([facility]) INJECT 6 UNITS UNDER THE SKIN PRIOR TO MEALS 30 mL 0 09/18/2023 Active BD Pen Needle Mini U/F 31G X 5 MM (Insulin Pen Needle)Indications: Type 1 diabetes mellitus with hemoglobin A1c goal of 7.0%-8.0% ([facility]) Use 4 times a day [...] post-stroke 03/23/2022 Receptive aphasia 02/15/2022 History of [place] (myocardial infarction) 12/15/2020 S/P coronary artery stent [...] Lipid Taxonomy. Coronary artery disease invo lving havasupai coronary artery of havasupai heart without angina pectoris 08/11/2009 Chronic otitis [...] for Patients with Cardiovascular Disease Project # [id number] PI: Selina Robert MD Please call [phone] with study related questions GENOMICS CARDIO RESEARCH OTHER*[id number] 08/15/2009 01/01/2017 Overview: Renamed Per Clinical Trials Billing Project. Study Titile: Genomics Markers for Patients with Cardiovascular Disease Project # [id number] PI: Selina Robert MD Please call [phone] with study related questions Abnormal electrocardiogram 07/20/2009 [...] (Prevnar) 08/16/2017 Pneumococcal Conjugate Vacci ne, 20-valent ([id number]) 10/30/2022 Pneumococcal Polysaccharide PPV23 (Pneumovax) 07/17/2006 Seasonal [...] encounter Miscellaneous Notes * Telephone Encounter - Snehal Mead LPN - 12/30/2023 9:17 AM EST Currently inpatient at [facility]. Has nuclear study tomorrow 12/31/23 that will need to be cancelled. documented in this encounter Plan of Treatment Upcoming Encounters Date Type Department Care Team (Late st Contact Info) Description 12/31/2023 10:30 AM EST Imaging [facility] 2nd Floor Cardiology, [place] [address] [facility] [place] [address] Gw, Excess Time Radiology [address] [place] [address] 01/01/2024 7:00 AM EST Pharmacy Cardiology [place] [address] [place] [address] [facility] Cardiology [address] [place] [address] 01/08/2024 10:40 AM EST Office Visit Neurology Michelle Solitario [place] [address] [facility] [place] [address] Jennifer Oviedo PA-C [address] [facility] [place] [address] Scheduled Procedures Name Priority Associated Diagnoses Date/Ti [...] this encounter Medical Devices Implanted Type Area Obgyn Hospitalist Physician Device Identifier Shelf Expiration Date Model / Serial / Lot Nucleus [id number] Cochlear Implant With Contour Advance Electrode Implanted:Qty: 1 on 10/04/2015 by Tonny Joshua MD at [place] [facility] Left: Ear [employer] 06/14/2017 [id number] / [id number] / Description:[id number] documented as of this [...] the patient have Health Care Power of Border Guard? No Care Teams Over Hauler Helper Relationship Specialty Start Date End Date Amairani Boyd MD [address] [place] [address] [place] [address] PCP - General Family Medicine 12/23/19 documented as of this encounter
[2024-01-09] MEDS ORDERED: NON-FORMULARY MEDICATION (Coenzyme Q10 [Coq-10] 100 mg Capsule) PO SCH (09:00)
[2024-01-09] MEDS ORDERED: amLODIPine BESYLATE 5 MG TAB PO SCH (09:00)
[2024-01-09] MEDS ORDERED: FUROSEMIDE 40 MG/4 ML VIAL IV SCH (09:00)
[2024-01-09] MEDS: FUROSEMIDE 40 MG/4 ML VIAL IV SCH (09:40)
[2024-01-09] MEDS: METOPROLOL SUCC 25MG EXT REL TAB PO SCH ×2 (09:41→23:05)
[2024-01-09] MEDS: CEROVITE ADV FORMULA TAB PO SCH (09:41)
[2024-01-09] MEDS: ASPIRIN 81 MG ECTAB PO SCH (09:41)
--- NOTE | 2024-01-09 10:33 | Cardiology Consultation ---
Date of Consultation January 09, 2024 Assessment & Plan (1) Acute on chronic heart failure with reduced ejection fraction and diastolic dysfunction: (2) Leg swelling: (3) H/O: stroke with residual effects: Plan 68-year-old female with complex underlying medical issues recently discharged from hospital on 01/02/2024 after hospitalization for acute on chronic systolic heart failure, reduced ejection fraction. Chart and records reflect probable noncompliance with medications with elevated heart rate on presentation, decompensated heart failure Recommendations: Increase metoprolol succinate to 25 mg twice per day. Continue IV diuretics as ordered. May consider addition of low-dose LAUREN inhibitor this admission though past hospitalization associated with acute renal insufficiency Home management will need input Cardiology will follow History of Present Illness Attending Physician: Tenisha Beckham MD History of Present Illness Patient is an 68-year-old female with underlying cardiac issues which include Cardiac Problem List: 1. Coronary heart disease, non STEMI, prompting cardiac catheterization, drug- eluting stent to the proximal LAD, [facility], 05/16/2020, subtotal occlusion of the RPDA branch of the distal right coronary artery supplied with ykgx-ya-doobi collaterals, treated medically, not amenable to revascularization 2. Intolerance of Brilinta prompting transition to clopidogrel 3. Recurrent angina prompting nuclear stress test November,, with abnormal EKG response, symptoms of angina reproduced 4. Repeat cardiac catheterization, [facility], 12/12/2020 with findings of patent LAD stent, distal RPDA stenosis once again observed with pcbf-px-kxerw collaterals unchanged 5. MELAS syndrome, (myopathy, encephalopathy, lactic acidosis and stroke) therefore not statin candidate 6. EGD, 2015, Mild Schatzki ring. Dilated 7. January 2022 with an acute left MCA infarction, residual receptive and expressive aphasia 8. Acute on chronic congestive heart failure with hospitalization November 2023, reduced ejection fraction EF 35-40% Patient limited historian with information gained from review of records. Patient notes difficulty with medications and possible nonadherence. Presented with symptoms of increasing lower extremity edema and fatigue. Chest x-ray and exam consistent with acute systolic heart failure. No fevers chills. No bleeding issues No additional information gained from discussion with patient Allergies Allergy/AdvReac Type Severity Reaction Status Date / Time atorvastatin AdvReac Intermediate myalgias, Verified 01/08/24 21:34 dysarthria prednisone AdvReac Intermediate metabolic-h Verified 01/08/24 21:34 yperglycemi a Home Medications Medication Instructions Recorded Confirmed Type insulin aspart U-100 100 unit/mL 6 unit subcut TIDM 05/14/20 01/08/24 History (3 mL) subcutaneous pen (Novolog FlexPen U-100 Insulin aspart) insulin glargine 100 unit/mL (3 20 unit subcut HS 05/14/20 01/08/24 History mL) subcutaneous pen (Lantus Solostar U-100 Insulin) vit A 12,500 unit-zinc 12.5 1 cap PO QAM 05/14/20 01/08/24 History fq-memyyf-pdrlf-bilberry-herb #261 capsule (Lipotriad [employer] Support) aspirin 81 mg tablet,delayed 81 mg PO QAM #90 tabs 05/17/20 01/08/24 Rx release nitroglycerin 0.4 mg sublingual 0.4 mg sublingual UD PRN chest 05/17/20 01/08/24 Rx tablet (Nitrostat) pain #30 tabs evolocumab 140 mg/mL subcutaneous 140 mg subcut .[id number] 08/10/21 01/08/24 History pen injector (Jaime Aponteick) coenzyme Q10 100 mg capsule 100 mg PO DAILY 01/14/22 01/08/24 History (CoQ-10) furosemide 20 mg tablet 20 mg PO MOWEFR #14 tabs 01/02/24 01/08/24 Rx metoprolol succinate 25 mg 12.5 mg (1/2 x 25 mg) PO BID #30 01/02/24 01/08/24 Rx tablet,extended release 24 hr tabs amlodipine 2.5 mg tablet 2.5 mg PO DAILY 01/08/24 01/08/24 History Patient History Medical History (Updated 01/09/24 @ 00:53 by Roland Fowler MD) Bilateral pleural effusion Unspecified hereditary retinal dystrophy Bilateral sensorineural hearing loss Bilateral myopia 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 Degeneration of cervical intervertebral disc History of TMJ disorder Hemiplegia Diabetic polyneuropathy Aphasia as late effect of cerebrovascular accident CAD (coronary artery disease) Statin intolerance Atherosclerosis of coronary artery Macular degeneration Mnire's disease Schatzki's ring MELAS (mitochondrial encephalopathy, lactic acidosis and stroke-like episodes) HLD (hyperlipidemia) Type 1 diabetes mellitus Hypertension Surgical History S/P coronary artery stent placement History of heart artery stent History of cochlear implant Left in 2014 History of left heart catheterization 07/2019 which revealed 30% proximal LAD otherwise clean coronaries History of colonoscopy with polypectomy History of cholecystectomy History of hysterectomy Family History Mother Coronary heart disease, Onset Age: 70 Father Coronary heart disease, Onset Age: 50 Daughter MELAS (mitochondrial encephalopathy, lactic acidosis and stroke-like episodes) Social History Smoking Status: Never smoker Tobacco Type: Cigarettes Second Hand Exposure: No; Do You Dip or Chew Tobacco: No; Hx Alcohol Use: No Hx Substance Use: No Preferred Language: Kyrgyz Communication Ability: Effective Communication Ability Comment: Cochlear implant, communication difficult at times Hearing Ability: Cochlear Implant Engineering Coordinator Required: No Beliefs That Will Affect Care: None marital status: Current Living Situation: Family Current Living Situation Comment: with son Lee current occupational status: retired and disabled How many Children do You have: 2 Feels Safe at Home: Yes Safety Concerns: Feels Safe At This Time Assistive Devices: Cane, Glasses and Other Review of Systems Review of Systems: Unobtainable due to cognitive status Physical Exam Constitutional: + thin; no acute distress Eyes: PERRL, conjunctivae normal, anicteric sclerae ENMT: external ear and nose normal, oropharynx normal Respiratory: Auscultation: + rales (Bilateral lung osorio) Cardiovascular: Rate/Rhythm: regular rate, regular rhythm and + tachycardic Heart Sounds: no murmur Vessels: + JVD Extremities: + edema Gastrointestinal (Abdomen): normal bowel sounds, soft, nontender, no hepatosplenomegaly Results & Data Vital Signs (Past 12 Hours) Vital Signs Pulse Pulse Resp BP BP Pulse Ox O2 Del Method 01/09/24 07:56 100 H 16 121/90 96 Nasal Cannula 01/09/24 07:11 114 H 01/09/24 05:14 111 H 20 135/85 97 Room Air 01/09/24 02:44 106 H 22 124/89 98 Room Air 01/08/24 23:00 109 H 22 123/87 95 02/14/24 22:39 111 H O2 Flow Rate 01/09/24 07:56 2 01/09/24 07:11 01/09/24 05:14 01/09/24 02:44 01/08/24 23:00 01/08/24 22:39 Laboratory Results Laboratory Results - last 24 hr 01/08/24 01/08/24 01/08/24 17:25 19:22 21:18 WBC 12.03 H RBC 5.11 Hgb 13.5 Hct 42.4 MCV 83.0 MCH 26.4 MCHC 31.8 L RDW Std Deviation 42.1 RDW Coeff of Marj 14.0 Plt Count 209 MPV 11.6 Immature Gran % (Auto) 0.3 Neut % (Auto) 76.2 Lymph % (Auto) 15.5 [place] % (Auto) 5.7 Eos % (Auto) 1.5 Baso % (Auto) 0.8 Neut # (Auto) 9.16 H Lymph # (Auto) 1.86 [place] # (Auto) 0.69 H Eos # (Auto) 0.18 Baso # (Auto) 0.10 Immature Gran # (Auto) 0.04 PT 13.2 H INR 1.2 H APTT 28 PTT Ratio 1.0 Sodium 137 Potassium 3.7 Chloride 100 Carbon Dioxide 24 Anion Gap 13 H BUN 25 H Creatinine 1.08 Est Cr Clr Drug Dosing Not Reportable Est GFR ( Amer) 61.5 Est GFR (Non-Af Amer) 53.1 BUN/Creatinine Ratio 23.1 H Glucose 144 H POC Glucose Estimat Average Glucose Hemoglobin A1c Calcium 8.8 Magnesium Total Bilirubin 1.1 H AST 41 H ALT 98 H Alkaline Phosphatase 86 Troponin I High Sens 140.3 H* 137.3 H* 149.8 H* B-Natriuretic Peptide 1757 H Total Protein 6.7 Albumin 3.9 Globulin 2.8 Albumin/Globulin Ratio 1.4 01/09/24 01/09/24 01/09/24 00:22 04:16 08:25 WBC 11.31 H RBC 4.82 Hgb 12.9 Hct 38.8 MCV 80.5 MCH 26.8 MCHC 33.2 RDW Std Deviation 41.0 RDW Coeff of Marj 14.1 Plt Count 208 MPV 12.0 Immature Gran % (Auto) 0.4 Neut % (Auto) 68.1 Lymph % (Auto) 22.7 [place] % (Auto) 6.5 Eos % (Auto) 1.4 Baso % (Auto) 0.9 Neut # (Auto) 7.70 H Lymph # (Auto) 2.57 [place] # (Auto) 0.74 H Eos # (Auto) 0.16 Baso # (Auto) 0.10 Immature Gran # (Auto) 0.04 PT INR APTT PTT Ratio Sodium 136 Potassium 3.6 Chloride 100 Carbon Dioxide 24 Anion Gap 12 H BUN 28 H Creatinine 0.93 Est Cr Clr Drug Dosing 48.6 Est GFR ( Amer) 73.7 Est GFR (Non-Af Amer) 63.6 BUN/Creatinine Ratio 30.1 H Glucose 100 H POC Glucose 121 H 77 Estimat Average Glucose 189 Hemoglobin A1c 8.2 H Calcium 8.4 L Magnesium 1.5 L Total Bilirubin AST ALT Alkaline Phosphatase Troponin I High Sens 127.6 H* B-Natriuretic Peptide Total Protein Albumin Globulin Albumin/Globulin Ratio
[2024-01-09] MEDS ORDERED: METOPROLOL SUCC 50MG EXT REL TAB PO ONE (11:00)
[2024-01-09] MEDS: METOPROLOL SUCC 25MG EXT REL TAB PO ONE (11:33)
--- NOTE | 2024-01-09 14:30 | Hospitalist Progress Note ---
Date of Service January 09, 2024 Assessment & Plan (1) Acute on chronic heart failure with reduced ejection fraction and diastolic dysfunction: Plan: 68-year-old female with past med history significant for type 1 diabetes, diabetic polyneuropathy, hyperlipidemia, chronic rhinitis, CAD s/p stent, hypertension, history of CVA, aphasia poststroke, Schatzki"s ring, Mnire's disease,MELAS, cochlear implant in place, was recently in the hospital for acute CHF and pleural effusions presents again with shortness of breath and lower extremity edema. Patient lives with her son. Patient is somewhat difficult to understand because of her history of stroke and dysarthria. Son states she is difficult to understand but generally he can understand her with some difficulty. But today again he noticed swelling in the legs and also complaining of shortness of breath. Patient denies any chest pain. No fevers. No nausea or vomiting. Appetite is okay. Can eat regular food as per son. No diarrhea or constipation. No complaints of abdominal pain as per son. As per son she ambulates without support but today she was weak to ambulate. Currently hemodynamics are okay. Seems noncompliant with medications last admission she was restarted on aspirin and metoprolol succinate Acute on chronic heart failure with reduced ejection fraction and diastolic dysfunction Presents with shortness of breath and lower EXTR edema Chest x-ray shows pulmonary edema and small bilateral pleural effusions Echo done on December 29, 2023 shows EF of 35 to 40%. Moderate to severe mitral regurgitation. Received IV Lasix 40 mg in the ER We will continue with IV Lasix 40 mg twice daily Daily weights, I's and O's Monitoring telemetry floor Appreciate cardiology input and recommendation-started on metoprolol succinate Clinically little better Electrolyte imbalance As hypomagnesemia-supplemented Potassium has been on the lower side we will supplement as well Type 1 diabetes Continue home Lantus Sliding scale Close monitor blood sugars-blood sugar remains minimally elevated History of CAD s/p stent On aspirin, metoprolol succinate Not on statin due to history of MELAS. On Repatha Elevated troponin Mostly demand ischemia-no ACS We will follow serial enzymes Serial cardiac enzymes have been improving History of hypertension metoprolol succinate and Lasix Amlodipine was discontinued last admission Will monitor MELAS(mitochondrial encephalopathy, lactic acidosis and strokelike episodes) Statin contraindicated. History of strokes with residual expressive and receptive aphasia Currently ambulates without support as per son. On aspirin. PT OT when stable Hyperlipidemia On Repatha injections. DVT prophylaxis On Lovenox Disposition Telemetry CODE STATUS. Full code if chance of recovery as per my discussion with the son Admission and Anticipated Discharge Date Admission Date: January 08, 2024 Subjective 01/09/2024 The patient was seen and examined in telemetry unit She has been feeling little better since admission Denies any significant symptoms Has dyskinetic movement of the head and expressive and receptive aphasia Review of Systems Review of Systems: Unobtainable due to cognitive status Physical Exam Physical Exam: Sitting on bed without any acute distress Constitutional: + ill appearing and average body habitus Eyes: PERRL, conjunctivae normal, anicteric sclerae ENMT: external ear and nose normal, oropharynx normal Neck: trachea midline, no thyromegaly Respiratory: no respiratory distress Auscultation: + diminished lung sounds and + crackles (Bibasilar crackles) Cardiovascular: Rate/Rhythm: regular rate, regular rhythm and + tachycardic Heart Sounds: normal S1, normal S2 and + murmur Extremities: + edema (2+ edema bilateral) Gastrointestinal (Abdomen): Inspection/Auscultation: abdomen not distended Percussion/Palpation: abdomen soft; abdomen nontender Musculoskeletal: No acute arthritis involving any of the joint Neurologic: Alert and awake. Has expressive and receptive aphasia from prior stroke Lymphatic: no cervical or axillary lymphadenopathy Results & Data Results & Data Vital Signs (Past 12 Hours) Vital Signs Pulse Pulse Resp BP Pulse Ox O2 Del Method O2 Flow Rate 01/09/24 10:49 108 H 20 125/88 98 Room Air 01/09/24 07:56 100 H 16 121/90 96 Nasal Cannula 2 01/09/24 07:11 114 H 01/09/24 05:14 111 H 20 135/85 97 Room Air 01/09/24 02:44 106 H 22 124/89 98 Room Air Laboratory Results Short CBC 01/08/24 01/09/24 Range/Units 17:25 04:16 WBC 12.03 H 11.31 H (4.8-10.8) K/ul Hgb 13.5 12.9 (12.0-16.0) g/dl Hct 42.4 38.8 (37.0-47.0) % Plt Count 209 208 (130-400) K/uL BMP 01/08/24 01/09/24 17:25 04:16 Sodium 137 136 Potassium 3.7 3.6 Chloride 100 100 Carbon Dioxide 24 24 BUN 25 H 28 H Creatinine 1.08 0.93 Glucose 144 H 100 H Calcium 8.8 8.4 L Liver Function 01/08/24 Range/Units 17:25 Total Bilirubin 1.1 H (0.2-1.0) mg/dl AST 41 H (13-39) U/L ALT 98 H (7-52) U/L Alkaline Phosphatase 86 (34-104) U/L Albumin 3.9 (3.4-5.0) gm/dl Medications Administered Current Inpatient Medications Acetaminophen (Acetaminophen 325 Mg Tab) 650 mg PO Q4H PRN PRN Reason: Pain or Fever Stop: 02/07/24 23:45 Aspirin (Aspirin 81 Mg Ectab) 81 mg PO QAM [facility] Stop: 02/08/24 08:59 Last Admin: 01/09/24 09:41 Dose: 81 mg Dextrose (Dextrose 50% 50 Ml Syringe) 25 - 50 ml IV UD PRN; Protocol PRN Reason: Hypoglycemia Protocol Stop: 02/07/24 23:45 Enoxaparin Sodium (Enoxaparin Inj 40 Mg/0.4 Ml Syr) 40 mg SQ PM [facility] Stop: 02/07/24 23:45 Last Admin: 01/09/24 00:02 Dose: Not Given Furosemide (Furosemide 40 Mg/4 Ml Vial) 40 mg IV BID17 [facility] Stop: 02/08/24 08:59 Last Admin: 01/09/24 09:40 Dose: 40 mg Glucagon (Glucagon For Inj 1 Mg Vial) 1 mg SQ UD PRN; Protocol PRN Reason: Hypoglycemia Protocol Stop: 02/07/24 23:45 Glucose (Glucose 40% Gel 15 Gm Tube) 15 - 30 gm PO UD PRN; Protocol PRN Reason: Hypoglycemia Protocol Stop: 02/07/24 23:45 Glucose (Glucose 10 Tab/Tube) 4 - 8 tab PO UD PRN; Protocol PRN Reason: Hypoglycemia Treatment Stop: 02/07/24 23:45 Magnesium Sulfate/Dextrose (Magnesium Sulfate / D5w) 1 gm in 100 mls @ 50 mls/hr IV Q1H [facility] Stop: 01/09/24 15:44 Insulin Aspart (Insulin Aspart Per Unit Charge) 0 units SC ACHS [facility] Stop: 02/07/24 23:45 Last Admin: 01/09/24 13:00 Dose: 1 units Insulin Glargine (Lantus Per Unit Charge) 20 units SQ HS [facility] Stop: 02/08/24 20:59 Metoprolol Succinate (Metoprolol Succ 25mg Ext Rel Tab) 25 mg PO BID [facility] Stop: 02/08/24 20:59 Miscellaneous (Carbohydrates For Hypoglycemia ) 15 - 30 gm PO UD PRN PRN Reason: Hypoglycemia Protocol Stop: 02/07/24 23:45 Multivitamins/Minerals (Cerovite Adv Formula Tab) 1 tab PO QAM [facility] Stop: 02/08/24 08:59 Last Admin: 01/09/24 09:41 Dose: 1 tab Nitroglycerin (Nitroglycerin Sl 0.4 Mg/Tab Tab) 0.4 mg SL Q5M PRN PRN Reason: Chest Pain Stop: 02/07/24 23:45 Polyethylene Glycol (Polyethylene (Miralax) 17 Gm Pack) 17 gm PO DAILY PRN PRN Reason: Constipation Stop: 02/07/24 23:45
[2024-01-09] MEDS: POTASSIUM CHLORIDE CRTAB 20 MEQ TABCR PO STA (15:07)
[2024-01-09] MEDS: MAGNESIUM SULFATE / D5W 1 GM/100 ML BAG IV SCH (15:08)
[2024-01-09] MEDS: LANTUS PER UNIT CHARGE SQ SCH (21:13)
--- NOTE | 2024-01-10 05:31 | Electrocardiogram Report ---
Test Reason : Blood Pressure : / mmHG Vent. Rate : 128 BPM Atrial Rate : 128 BPM P-R Int : 124 ms QRS Dur : 080 ms QT Int : 318 ms P-R-T Axes : 053 -43 131 degrees QTc Int : 464 ms Sinus tachycardia Possible Left atrial enlargement Left axis deviation Inferior infarct (cited on or before 29-DEC-2023) Anteroseptal infarct (cited on or before 07-MAY-2023) T wave abnormality, consider lateral ischemia Abnormal ECG When compared with ECG of 29-DEC-2023 12:41, No significant change was found Confirmed by Ilya Koenig ([id number]) on 01/10/2024 5:31:25 AM Referred By: REFERRED SELF Confirmed By:Ilya Koenig
--- NOTE | 2024-01-10 05:32 | Electrocardiogram Report ---
Test Reason : Blood Pressure : / mmHG Vent. Rate : 098 BPM Atrial Rate : 098 BPM P-R Int : 102 ms QRS Dur : 082 ms QT Int : 370 ms P-R-T Axes : 056 -45 140 degrees QTc Int : 472 ms Sinus rhythm with short MD Left axis deviation Inferior infarct (cited on or before 29-DEC-2023) Anteroseptal infarct (cited on or before 07-MAY-2023) Nonspecific T wave abnormality Abnormal ECG When compared with ECG of 08-JAN-2024 17:19, No significant change was found Confirmed by Ilya Koenig ([id number]) on 01/10/2024 5:31:52 AM Referred By: REFERRED SELF Confirmed By:Ilya Koenig
[2024-01-10 06:54] LABS: Basophils % (auto) 1.1 %; Eosinophils # (auto) 0.17 K/uL (0.00-0.50); Eosinophils % (auto) 1.9 %; Hematocrit (blood only) 39.8 % (37.0-47.0); Hemoglobin 13.3 g/dl (12.0-16.0); Immature Granulocytes # (auto) 0.03 K/uL (0.01-0.20); Immature Granulocytes % (auto) 0.3 %; Lymphocytes # (auto) 2.01 K/uL (1.20-3.40); Lymphocytes % (auto) 21.9 %; Mean Corpuscular Hemoglobin 26.3 pg (25.0-34.0); Mean Corpuscular Hgb Conc 33.4 g/dL (32.0-36.0); Mean Corpuscular Volume 78.7 fL (80.0-100.0); Mean Platelet Volume 12.2 fL (9.4-12.4); Monocytes % (auto) 7.6 %; Neutrophils # (auto) 6.16 K/uL (1.40-6.50); Neutrophils % (auto) 67.2 %; Platelet Count 207 K/uL (130-400); RDW Coefficient of Variation 14.4 % (11.5-14.5); RDW Standard Deviation 40.3 fL (36.4-46.3); Red Blood Count 5.06 M/uL (4.20-5.40); White Blood Count 9.17 K/ul (4.8-10.8)
[2024-01-10 07:18] LABS: BUN Creatinine Ratio 39.8 (10-20); Calcium 8.6 mg/dl (8.6-10.3); Creatinine Clr Calc Pharmacy 48.6 ml/min; Est GFR (African American) 73.7 ml/min; Est GFR (Non-African American) 63.6 ml/min; Magnesium 1.8 mg/dl (1.7-2.4); Phosphorus 4.9 mg/dl (2.5-4.9); Potassium 3.9 mmol/L (3.5-5.1)
--- NOTE | 2024-01-10 08:52 | Cardiology Progress Note ---
Date of Service January 10, 2024 Assessment & Plan (1) Acute on chronic heart failure with reduced ejection fraction and diastolic dysfunction: (2) Leg swelling: (3) H/O: stroke with residual effects: Plan Impression: 68-year-old female with complex underlying medical issues recently discharged from hospital on 01/02/2024 after hospitalization for acute on chronic systolic heart failure, reduced ejection fraction. Chart and records reflect probable noncompliance with medications with elevated heart rate on presentation, decompensated heart failure Recommendations: 1. Heart rates remain tachycardic in the low 100s. Very short MN interval. No changes needed at this time--Continue metoprolol succinate 25 mg twice daily. Monitor on telemetry. 2. Patient remains hypervolemic. Increase IV furosemide 40 mg TID. 3. Goal-directed medical therapy will need optimized. However, we will hold off on adding LAUREN inhibitor until patient is optimized from a volume standpoint. Prior attempt at adding LAUREN inhibitor associated with acute renal insufficiency 4. Home management will need input Case discussed with Dr. Cabral. Cardiology will follow. I spent a total of 30 minutes on the date of service in preparation, delivery, and documentation of the care provided to the patient excluding any time spent in the performance of separately billed services. MASOOD Ochoa Department of Cardiology, [facility] This chart was completed in part utilizing Speech Voice Recognition Software. Grammatical errors, random word insertions, pronoun errors, and incomplete sentences are an occasional consequence of this system due to software limitations, ambient noise, and hardware issues. Any formal questions or concerns about the content, text, or information contained within the body of this dictation should be directly addressed to the provider for clarification. Admission and Anticipated Discharge Date Admission Date: January 08, 2024 Supervising Physician Co-Signing Physician Notes Patient was seen and personally examined, chart, telemetry reviewed. Full assessment and plan as outlined and personally reviewed with advanced provide Patient difficult with communication but voices no complaint Exam still consistent with congestive heart failure with bilateral rales, edema Plan: Continue IV diuretics: Increase furosemide to 40 mg IV 3 times daily LAUREN inhibitor to be added once renal function assured. Notable acute renal insufficiency with last hospitalization with diuresis Subjective 68-year-old female with complex underlying medical issues recently discharged from hospital on 01/02/2024 after hospitalization for acute on chronic systolic heart failure, reduced ejection fraction. Chart and records reflect probable noncompliance with medications with elevated heart rate on presentation, decompensated heart failure. 01/09: Metoprolol succinate increased to 25 mg twice daily Diuresed with IV furosemide 40 mg twice daily 01/10: Patient seen and examined at bedside. Telemetry and chart reviewed. Patient is a poor historian and review of systems is limited however patient appears hypervolemic on exam with evidence of lower extremity edema and coarse breath sounds. Telemetry: ST 100-110 with short MN interval I&O: -272 mL Weight: 56.4 kg Labs: Stable renal function and electrolytes. Review of Systems 2 Review of Systems: Unobtainable due to cognitive status Physical Exam Constitutional: + thin; no acute distress Eyes: PERRL, conjunctivae normal, anicteric sclerae ENMT: external ear and nose normal, oropharynx normal Respiratory: Auscultation: + rales (Bilateral lung osorio) Cardiovascular: Rate/Rhythm: regular rhythm and + tachycardic Heart Sounds: no murmur Vessels: + JVD Extremities: + edema (+2 BLLE pitting ) Gastrointestinal (Abdomen): normal bowel sounds, soft, nontender, no hepatosplenomegaly Results & Data Vital Signs (Past 12 Hours) Vital Signs Temp Pulse Pulse Resp BP Pulse Ox O2 Del Method 01/10/24 07:03 36.7 C 77 18 119/88 95 Room Air 01/10/24 02:50 37 C 110 H 18 112/78 94 Room Air 01/09/24 22:54 36.9 C 120 H 18 118/83 94 Room Air 01/09/24 22:00 119 H Laboratory Results Cardiac Enzymes 01/09/24 01/09/24 Range/Units 11:33 17:12 Troponin I High Sens 100.9 H* D 120.8 H* (0-14) pg/ml CBC 01/10/24 Range/Units 05:57 WBC 9.17 (4.8-10.8) K/ul RBC 5.06 (4.20-5.40) M/uL Hgb 13.3 (12.0-16.0) g/dl Hct 39.8 (37.0-47.0) % Plt Count 207 (130-400) K/uL Neut # (Auto) 6.16 (1.40-6.50) K/uL Lymph # (Auto) 2.01 (1.20-3.40) K/uL Dale # (Auto) 0.70 H (0.11-0.59) K/uL Eos # (Auto) 0.17 (0.00-0.50) K/uL Baso # (Auto) 0.10 (0.00-0.20) K/uL Comprehensive Metabolic Panel 01/10/24 Range/Units 05:57 Sodium 137 (136-145) mmol/L Potassium 3.9 (3.5-5.1) mmol/L Chloride 102 (98-107) mmol/L Carbon Dioxide 24 (21-32) mmol/L BUN 37 H (6-23) mg/dl Creatinine 0.93 (0.6-1.2) mg/dl Glucose 61 L (70-99(Fasting)) mg/dl Calcium 8.6 (8.6-10.3) mg/dl Intake and Output 01/09/24 01/10/24 01/10/24 22:59 06:59 14:59 Intake Total 228.333 / 328.333 100 / 328.333 Output Total 601 / 601 Balance 228.333 / -272.667 -501 / -272.667 Intake: IV 178.333 / 178.333 Magnesium Sulfate / D5w 1 gm In 178.333 / 178.333 100 ml @ 50 mls/hr IV Q1H [facility] Rx#:[id number] Oral 100 / 100 Other 50 / 50 Output: Urine 100 / 100 Urine Amount (Catheter) 500 / 500 External 500 / 500 # Bowel Movements
--- NOTE | 2024-01-10 11:40 | Hospitalist Progress Note ---
Date of Service January 10, 2024 Assessment & Plan (1) Acute on chronic heart failure with reduced ejection fraction and diastolic dysfunction: Plan: 68-year-old female with past med history significant for type 1 diabetes, diabetic polyneuropathy, hyperlipidemia, chronic rhinitis, CAD s/p stent, hypertension, history of CVA, aphasia poststroke, Schatzki"s ring, Mnire's disease,MELAS, cochlear implant in place, was recently in the hospital for acute CHF and pleural effusions presents again with shortness of breath and lower extremity edema. Patient lives with her son. Patient is somewhat difficult to understand because of her history of stroke and dysarthria. Son states she is difficult to understand but generally he can understand her with some difficulty. But today again he noticed swelling in the legs and also complaining of shortness of breath. Patient denies any chest pain. No fevers. No nausea or vomiting. Appetite is okay. Can eat regular food as per son. No diarrhea or constipation. No complaints of abdominal pain as per son. As per son she ambulates without support but today she was weak to ambulate. Currently hemodynamics are okay. Seems noncompliant with medications last admission she was restarted on aspirin and metoprolol succinate Acute on chronic heart failure with reduced ejection fraction and diastolic dysfunction Presents with shortness of breath and lower EXTR edema Chest x-ray shows pulmonary edema and small bilateral pleural effusions Echo done on December 29, 2023 shows EF of 35 to 40%. Moderate to severe mitral regurgitation. Received IV Lasix 40 mg in the ER We will continue with IV Lasix 40 mg twice daily Daily weights, I's and O's Monitoring telemetry floor Appreciate cardiology input and recommendation-started on metoprolol succinate 25 mg twice daily Clinically much better but only negative fluid balance of 272 mL Lasix doses have been increased to 40 mg IV 3 times daily Remains tachycardic-we will continue with the current dose of beta-rebecca Will monitor electrolytes Electrolyte imbalance As hypomagnesemia-supplemented Potassium has been on the lower side we will supplement as well Electrolytes are normalized Type 1 diabetes Continue home Lantus Sliding scale Close monitor blood sugars-blood sugar remains minimally elevated Blood sugar is low this morning at 64-135 R History of CAD s/p stent On aspirin, metoprolol succinate Not on statin due to history of MELAS. On Repatha Elevated troponin Mostly demand ischemia-no ACS We will follow serial enzymes Serial cardiac enzymes have been improving History of hypertension metoprolol succinate and Lasix Amlodipine was discontinued last admission Will monitor MELAS(mitochondrial encephalopathy, lactic acidosis and strokelike episodes) Statin contraindicated. History of strokes with residual expressive and receptive aphasia Currently ambulates without support as per son. On aspirin. PT OT when stable Hyperlipidemia On Repatha injections. DVT prophylaxis On Lovenox Disposition Telemetry CODE STATUS. Full code if chance of recovery as per my discussion with the son Admission and Anticipated Discharge Date Admission Date: January 08, 2024 Subjective 01/09/2024 The patient was seen and examined in telemetry unit She has been feeling little better since admission Denies any significant symptoms Has dyskinetic movement of the head and expressive and receptive aphasia 01/10/2024 The patient was seen and examined in telemetry unit She has been feeling much better and wants to go home Still has significant dysphagia both expressive and receptive Review of Systems Review of Systems: All systems reviewed and are unremarkable except as noted below Physical Exam Physical Exam: Sitting on bed without any acute distress Constitutional: + ill appearing and average body habitus Eyes: PERRL, conjunctivae normal, anicteric sclerae ENMT: external ear and nose normal, oropharynx normal Neck: trachea midline, no thyromegaly Respiratory: no respiratory distress Auscultation: + diminished lung sounds and + crackles (Bibasilar crackles) Cardiovascular: Rate/Rhythm: regular rate, regular rhythm and + tachycardic Heart Sounds: normal S1, normal S2 and + murmur Extremities: + edema (2+ edema bilateral) Gastrointestinal (Abdomen): Inspection/Auscultation: abdomen not distended Percussion/Palpation: abdomen soft; abdomen nontender Musculoskeletal: No acute arthritis involving any of the joint Neurologic: Alert and awake. Moving all limbs. Has significant dysphasia secondary to stroke in the past Lymphatic: no cervical or axillary lymphadenopathy Results & Data Results & Data Vital Signs (Past 12 Hours) Vital Signs Temp Pulse Resp BP Pulse Ox O2 Del Method 01/10/24 07:03 36.7 C 77 18 119/88 95 Room Air 01/10/24 02:50 37 C 110 H 18 112/78 94 Room Air Laboratory Results Short CBC 01/10/24 Range/Units 05:57 WBC 9.17 (4.8-10.8) K/ul Hgb 13.3 (12.0-16.0) g/dl Hct 39.8 (37.0-47.0) % Plt Count 207 (130-400) K/uL [facility] 01/10/24 05:57 Sodium 137 Potassium 3.9 Chloride 102 Carbon Dioxide 24 BUN 37 H Creatinine 0.93 Glucose 61 L Calcium 8.6 Medications Administered Current Inpatient Medications Acetaminophen (Acetaminophen 325 Mg Tab) 650 mg PO Q4H PRN PRN Reason: Pain or Fever Stop: 02/07/24 23:45 Aspirin (Aspirin 81 Mg Ectab) 81 mg PO QAM [facility] Stop: 02/08/24 08:59 Last Admin: 01/10/24 10:44 Dose: 81 mg Dextrose (Dextrose 50% 50 Ml Syringe) 25 - 50 ml IV UD PRN; Protocol PRN Reason: Hypoglycemia Protocol Stop: 02/07/24 23:45 Enoxaparin Sodium (Enoxaparin Inj 40 Mg/0.4 Ml Syr) 40 mg SQ PM [facility] Stop: 02/07/24 23:45 Last Admin: 01/09/24 23:05 Dose: 40 mg Furosemide (Furosemide 40 Mg/4 Ml Vial) 40 mg IV TID [facility] Stop: 02/09/24 13:59 Glucagon (Glucagon For Inj 1 Mg Vial) 1 mg SQ UD PRN; Protocol PRN Reason: Hypoglycemia Protocol Stop: 02/07/24 23:45 Glucose (Glucose 40% Gel 15 Gm Tube) 15 - 30 gm PO UD PRN; Protocol PRN Reason: Hypoglycemia Protocol Stop: 02/07/24 23:45 Glucose (Glucose 10 Tab/Tube) 4 - 8 tab PO UD PRN; Protocol PRN Reason: Hypoglycemia Treatment Stop: 02/07/24 23:45 Insulin Aspart (Insulin Aspart Per Unit Charge) 0 units SC ACHS [facility] Stop: 02/07/24 23:45 Last Admin: 01/10/24 10:21 Dose: Not Given Insulin Glargine (Lantus Per Unit Charge) 20 units SQ HS [facility] Stop: 02/08/24 20:59 Last Admin: 01/09/24 21:13 Dose: 20 units Metoprolol Succinate (Metoprolol Succ 25mg Ext Rel Tab) 25 mg PO BID [facility] Stop: 02/08/24 20:59 Last Admin: 01/10/24 10:05 Dose: 25 mg Miscellaneous (Carbohydrates For Hypoglycemia ) 15 - 30 gm PO UD PRN PRN Reason: Hypoglycemia Protocol Stop: 02/07/24 23:45 Multivitamins/Minerals (Cerovite Adv Formula Tab) 1 tab PO QAM [facility] Stop: 02/08/24 08:59 Last Admin: 01/10/24 10:44 Dose: 1 tab Nitroglycerin (Nitroglycerin Sl 0.4 Mg/Tab Tab) 0.4 mg SL Q5M PRN PRN Reason: Chest Pain Stop: 02/07/24 23:45 Polyethylene Glycol (Polyethylene (Miralax) 17 Gm Pack) 17 gm PO DAILY PRN PRN Reason: Constipation Stop: 02/07/24 23:45
[2024-01-10] MEDS: FUROSEMIDE 40 MG/4 ML VIAL IV SCH (14:43)
[2024-01-11] MEDS ORDERED: PHARMACY GLYCEMIC MGMT CONSULT PRN (07:57)
[2024-01-11] MEDS: DEXTROSE 10% 1,000 ML IV SCH (09:07)
[2024-01-11 09:10] LABS: BUN Creatinine Ratio 41.8 (10-20); Calcium 8.6 mg/dl (8.6-10.3); Creatinine Clr Calc Pharmacy 49.6 ml/min; Est GFR (African American) 75.7 ml/min; Est GFR (Non-African American) 65.3 ml/min; Potassium 3.1 mmol/L (3.5-5.1)
--- NOTE | 2024-01-11 13:52 | Cardiology Progress Note ---
Date of Service January 11, 2024 Assessment & Plan (1) Acute on chronic heart failure with reduced ejection fraction and diastolic dysfunction: (2) Leg swelling: (3) H/O: stroke with residual effects: Plan Impression: 68-year-old female with complex underlying medical issues recently discharged from hospital on 01/02/2024 after hospitalization for acute on chronic systolic heart failure, reduced ejection fraction. Chart and records reflect probable noncompliance with medications with elevated heart rate on presentation, decompensated heart failure Recommendations: * Metoprolol succinate dose increased to 25 mg twice daily as of evening of 01/09/2021 * Continue furosemide 40 mg IV 3 times daily. * LAUREN inhibitor to be added once renal function assured. Notable acute renal insufficiency with last hospitalization with diuresis * Supplement potassium, received 40 mill equivalents this morning, will add another 20 mill equivalents and repeat BMP in a.m. This chart was completed in part utilizing Speech Voice Recognition Software. Grammatical errors, random word insertions, pronoun errors, and incomplete sentences are an occasional consequence of this system due to software limitations, ambient noise, and hardware issues. Any formal questions or concerns about the content, text, or information contained within the body of this dictation should be directly addressed to the provider for clarification. Admission and Anticipated Discharge Date Admission Date: January 08, 2024 Subjective Patient seen in follow-up. No acute complaints. Expressive aphasia noted. Telemetry reveals sinus tachycardia at just over 100 bpm Physical Exam Constitutional: + thin; no acute distress Eyes: PERRL, conjunctivae normal, anicteric sclerae ENMT: external ear and nose normal, oropharynx normal Respiratory: Auscultation: + rales (Bilateral lung osorio) Cardiovascular: Rate/Rhythm: regular rate, regular rhythm and + tachycardic Heart Sounds: no murmur Vessels: + JVD Extremities: + edema (1+ BLLE pitting ) Gastrointestinal (Abdomen): normal bowel sounds, soft, nontender, no hepatosplenomegaly Results & Data Vital Signs (Past 12 Hours) Vital Signs Temp Pulse Resp BP BP Pulse Ox O2 Del Method 01/11/24 12:16 36.7 C 101 H 19 117/78 94 Room Air 01/11/24 07:18 37.4 C 89 18 108/81 96 Room Air 01/11/24 03:10 36.4 C L 90 18 103/73 97 Room Air
[2024-01-11] MEDS: POTASSIUM CHLORIDE CRTAB 20 MEQ TABCR PO STA ×2 (14:25)
--- NOTE | 2024-01-11 14:49 | Hospitalist Progress Note ---
Date of Service January 11, 2024 Assessment & Plan (1) Acute on chronic heart failure with reduced ejection fraction and diastolic dysfunction: Plan: 68-year-old female with past med history significant for type 1 diabetes, diabetic polyneuropathy, hyperlipidemia, chronic rhinitis, CAD s/p stent, hypertension, history of CVA, aphasia poststroke, Schatzki"s ring, Mnire's disease,MELAS, cochlear implant in place, was recently in the hospital for acute CHF and pleural effusions presents again with shortness of breath and lower extremity edema. Acute on chronic heart failure with reduced ejection fraction and diastolic dysfunction Presents with shortness of breath and lower EXTR edema Chest x-ray on admission personally reviewed ;consistent with pulmonary edema and small bilateral pleural effusions Echo done on December 29, 2023 shows EF of 35 to 40%. Moderate to severe mitral regurgitation. 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 Electrolyte imbalance As hypomagnesemia-supplemented Hypokalemiarepleted Type 1 diabetes Sliding scale Close monitor blood sugars- Insulin at night decreased due to episode of hypoglycemia in a.m. History of CAD s/p stent On aspirin, metoprolol succinate Not on statin due to history of MELAS. On Repatha Elevated troponin Demand ischemia Elevated troponin on admission; down trended History of hypertension metoprolol succinate and Lasix Amlodipine was discontinued last admission Will monitor MELAS(mitochondrial encephalopathy, lactic acidosis and strokelike episodes) Statin contraindicated. History of strokes with residual expressive and receptive aphasia Currently ambulates without support as per son. On aspirin. PT OT when stable Hyperlipidemia On Repatha injections. DVT prophylaxis On Lovenox Disposition Telemetry CODE STATUS. Full code Time spent evaluating patient, direct bedside care, chart review, placing orders, interpretation of diagnostic studies, discussion with consultants, patient, and family members, as well as other required patient management activities is 50 minutes Please note the above document was generated using voice recognition software. It may contain grammatical, syntax or spelling errors. Any formal questions or concerns about the content, text or information contained within the body of this dictation should be directly addressed to the provider for clarification Admission and Anticipated Discharge Date Admission Date: January 08, 2024 Subjective Patient seen and examined at bedside. She is comfortable with sitting up on the bed; not in any distress. Denies any shortness of breath or chest pain. Review of Systems Review of Systems: All systems reviewed & are unremarkable except as noted in Subjective Physical Exam Physical Exam: Constitutional: Comfortable. Not in distress. Expressive aphasia present Respiratory: Bilateral basal crackles present Cardiovascular: RRR, no murmur, no edema Vessels: no JVD or carotid bruit Chest: normal inspection of chest Abdomen: normal bowel sounds, soft, nontender, no hepatosplenomegaly Musculoskeletal: no cyanosis or clubbing, extremities motor strength 5/5 Skin: no rashes, warm and dry normal turgor Neurologic: PERRLA, expressive aphasia present Results & Data Results & Data Vital Signs (Past 12 Hours) Vital Signs Temp Pulse Resp BP BP Pulse Ox O2 Del Method 01/11/24 12:16 36.7 C 101 H 19 117/78 94 Room Air 01/11/24 07:18 37.4 C 89 18 108/81 96 Room Air 01/11/24 03:10 36.4 C L 90 18 103/73 97 Room Air
[2024-01-11] MEDS: LANTUS PER UNIT CHARGE SQ SCH (20:12)
[2024-01-11] MEDS ORDERED: LANTUS PER UNIT CHARGE SQ SCH (21:00)
[2024-01-12 06:56] LABS: Est GFR (African American) 70.9 ml/min; Potassium 3.8 mmol/L (3.5-5.1)
[2024-01-12 06:57] LABS: BUN Creatinine Ratio 39.6 (10-20); Calcium 8.4 mg/dl (8.6-10.3); Est GFR (Non-African American) 61.2 ml/min
--- NOTE | 2024-01-12 07:38 | XRay Report ---
XR chest 1V portable CLINICAL HISTORY: Follow up on pulmonary edema COMPARISON STUDY: Chest radiograph January 08, 2024. Chest CT January 14, 2022. FINDINGS: There is no pneumothorax. Small bilateral pleural effusions have slightly improved. There a re bibasilar opacities. Pulmonary edema has significantly improved since prior exam. Mild cardiomegal y is again noted. Mediastinal contours are stable. IMPRESSION: 1. Pulmonary edema, significantly improved since prior chest radiograph. 2. Small bilateral pleural effusions with bibasilar opacities which favor atelectasis. ACT 112: Negative or not required by law. Electronically signed by: Toby Caraballo M.D. 01/12/2024 7:36 AM
--- NOTE | 2024-01-12 14:18 | Discharge Summary ---
Date of Service January 12, 2024 Admission HPI Per Admitting Provider 68-year-old female with past med history significant for type 1 diabetes, diabetic polyneuropathy, hyperlipidemia, chronic rhinitis, CAD s/p stent, hypertension, history of CVA, aphasia poststroke, Schatzki"s ring, Mnire's disease,MELAS, cochlear implant in place, was recently in the hospital for acute CHF and pleural effusions presents again with shortness of breath and lower extremity edema. Patient lives with her son. Patient is somewhat difficult to understand because of her history of stroke and dysarthria. Son states she is difficult to understand but generally he can understand her with some diff iculty. But today again he noticed swelling in the legs and also complaining of shortness of breath. Patient denies any chest pain. No fevers. No nausea or vomiting. Appetite is okay. Can eat regular food as per son. No diarrhea or constipation. No complaints of abdominal pain as per son. As per son she ambulates without support but today she was weak to ambulate. Currently hemodynamics are okay. Past medical history. As mentioned above Past surgical history. S/p coronary artery stent placement, s/p left cochlear implant in 2014, left heart catheterization, colonoscopy, cholecystectomy, hysterectomy. Family history. Mother had CAD. Father had CAD. Daughter has MELAS(mitochondrial encephalopathy, lactic acidosis and strokelike episodes), Social history. Former smoker. No alcohol use. No drug use. Admission Exam Per Admitting Provider General- Some what restless Head- atraumatic Eyes- PERRL. ENT- oropharynx clear Neck- supple, no JVD. Lungs- clear to auscultation mild bibasilar crackles, no wheezing Heart- regular rhythm; no murmur, no gallop. Abdomen- normal bowel sounds, soft, nontender, no distension. Extremities- b/l lower extremity edema present. No erythema seen. Neuro- alert, oriented ; PERRL,; no facial palsy; obeys simple commands, moves extremities. Skin- warm & dry Principal Diagnosis Acute on chronic heart failure with reduced ejection fraction and diastolic dysfunction Discharge Exam Constitutional: Comfortable. Not in distress. Expressive aphasia present Respiratory: Bilateral clear breath sound Cardiovascular: RRR, no murmur, no edema Vessels: no JVD or carotid bruit Chest: normal inspection of chest Abdomen: normal bowel sounds, soft, nontender, no hepatosplenomegaly Musculoskeletal: no cyanosis or clubbing, extremities motor strength 5/5 Skin: no rashes, warm and dry normal turgor Neurologic: PERRLA, expressive aphasia present Discharge Data Allergies Allergy/AdvReac Type Severity Reaction Status Date / Time atorvastatin AdvReac Intermediate myalgias, Verified 01/08/24 21:34 dysarthria prednisone AdvReac Intermediate metabolic-h Verified 01/08/24 21:34 yperglycemi a Consultations 01/08/24 18:54 ED Decision to Admit Stat 01/09/24 08:00 Consult Cardiology Routine Hospital Course (1) Acute on chronic heart failure with reduced ejection fraction and diastolic dysfunction: 68-year-old female with past med history significant for type 1 diabetes, diabetic polyneuropathy, hyperlipidemia, chronic rhinitis, CAD s/p stent, hypertension, history of CVA, aphasia poststroke, Schatzki"s ring, Mnire's disease,MELAS, cochlear implant in place, was recently in the hospital for acute CHF and pleural effusions presents with shortness of breath and lower extremity edema. Acute on chronic heart failure with reduced ejection fraction and diastolic dysfunction Presents with shortness of breath and lower EXTR edema Chest x-ray on admission personally reviewed ;consistent with pulmonary edema and small bilateral pleural effusions Echo done on December 29, 2023 shows EF of 35 to 40%. Moderate to severe mitral regurgitation. During the hospitalization, patient was diuresed with IV Lasix 40 mg 3 times daily Cardiology consultation was done Follow-up chest x-ray showed significant improvement in the pulmonary edema At discharge, patient was placed on Lasix 40 mg once a day. Amlodipine was discontinued. Patient to follow-up with PCP and cardiology Type 1 diabetes Sliding scale Close monitor blood sugars- At discharge, Lantus was decreased to 15 units from 20 units due to fasting hypoglycemia NovoLog was also decreased to 3 units with meals Follow-up with PCP Please note the above document was generated using voice recognition software. It may contain grammatical, syntax or spelling errors. Any formal questions or concerns about the content, text or information contained within the body of this dictation should be directly addressed to the provider for clarification Total Time Total Time Spent Total Time Spent (In Minutes): 35 Total Time Includes: Examination of the Patient, Discharge Planning, Medication Reconciliation, Communication With Other Providers and Other Discharge Plan Discharge Items Patient Disposition: Home - Self-Care Reason For Visit: ACUTE CHF Discharge Diagnosis: Acute on chronic CHF Activity: Resume your previous activity Non-emergency contact: Primary Care Provider Call non-emergency contact if: you have any medication questions and your symptoms worsen Follow-up/Referrals: Amairani Owen MD [Primary Care Provider] - Diet: Regular Addtl Attending Provider Instructions: You were admitted to the hospital with heart failure. You were seen by cardiology during the hospitalization. Following changes has been made to your medication regimen: 1) Stop taking amlodipine 2.5 mg. 2) the dose of metoprolol has been increased to 25 mg twice daily. 3) the dose of Lasix has been increased to 40 mg once a day. Your blood glucose during the hospitalization was found to be on the lower end. Following changes has been made: 1) take Lantus 15 unit at night 2) take 3 units aspart with meals. The dose of the insulin should be titrated based on your blood glucose levels. An appointment with your primary care doctor will be set up in next few days. Pending Studies at Discharge: No Stand-Alone Forms: My [facility], Smoking Cessation Medications and DC Order Prescriptions: New metoprolol succinate 25 mg Tablet Extended Release 24 Hr 25 mg PO BID Qty: 60 0RF furosemide [Lasix] 40 mg tablet 40 mg PO DAILY Qty: 30 0RF Continued Lipotriad Vision Support 12,500 unit- 12.5 mg Capsule 1 cap PO QAM nitroglycerin [Nitrostat] 0.4 mg Tablet, Sublingual 0.4 mg sublingual UD PRN (Reason: chest pain) Qty: 30 1RF aspirin 81 mg Tablet,Delayed Release (Dr/Ec) 81 mg PO QAM Qty: 90 1RF Repatha SureClick 140 mg/mL pen injector 140 mg SUBCUT .[id number] coenzyme Q10 [CoQ-10] 100 mg Capsule 100 mg PO DAILY Changed insulin aspart U-100 [Novolog FlexPen U-100 Insulin] 100 unit/mL (3 mL) insulin pen 3 unit SUBCUT TIDM Qty: 15 0RF insulin glargine [Lantus Solostar U-100 Insulin] 100 unit/mL (3 mL) Insulin Pen 15 unit SUBCUT HS Qty: 15 0RF Discontinued metoprolol succinate 25 mg Tablet Extended Release 24 Hr 12.5 mg PO BID Qty: 30 0RF furosemide 20 mg tablet 20 mg PO MOWEFR Qty: 14 0RF amlodipine 2.5 mg tablet 2.5 mg PO DAILY Discharge Orders: Discharge Order- CHF (Routine); Ordered 01/12/24 Ordered By: Antwan Rowley/Other Patient Handouts: Managing Type 1 Diabetes Admission Data Admit Date/Time: 01/08/24 20:14 Attending Provider: Antwan Robledo Admit Provider: José Luis Erickson Primary Care Provider: Amairani Owen Other Providers: José Luis Erickson; Aiden Cabral Other Interventions: Discharge Summary Assessment (RN) Last Done: 01/12/24 11:00
== END 2024-01-12 12:47 | disposition home or self-care (01) | DRG 291 ==
LOC: ED 16:40 → SUATTDRO 20:14 → EDINP 20:14 → 2E 23:47
DX: E10.42 Type 1 diabetes mellitus with diabetic polyneuropathy; I11.0 Hypertensive heart disease with heart failure; Z91.128 Patient's intentional underdosing of medication regimen for other reason; K22.2 Esophageal obstruction; E78.5 Hyperlipidemia, unspecified; Z96.21 Cochlear implant status; Z88.8 Allergy status to other drugs, medicaments and biological substances; E83.42 Hypomagnesemia; Z83.49 Family history of other endocrine, nutritional and metabolic diseases; I50.43 Acute on chronic combined systolic (congestive) and diastolic (congestive) heart failure; I24.89 Other forms of acute ischemic heart disease; J31.0 Chronic rhinitis; I25.10 Atherosclerotic heart disease of native coronary artery without angina pectoris; Z79.899 Other long term (current) drug therapy; E88.41 MELAS syndrome; Z79.82 Long term (current) use of aspirin; I69.320 Aphasia following cerebral infarction; Z95.5 Presence of coronary angioplasty implant and graft; H35.30 Unspecified macular degeneration; Z82.49 Family history of ischemic heart disease and other diseases of the circulatory system; E87.6 Hypokalemia; H81.09 Meniere's disease, unspecified ear

== ENCOUNTER 2024-02-21 14:48 | Inpatient (IN) ==
--- NOTE | 2024-02-21 15:30 | Emergency Department Note ---
Impression & Plan Acute exacerbation of CHF (congestive heart failure), Elevated troponin, Tachycardia, Hyperglycemia, Bilateral pleural effusion, Fall, Cellulitis of foot ED Provider Note NAME: WINNIE DONG AGE: 68 SEX: F : 1955 ARRIVES VIA: Ambulance INFORMANT: Patient, ED PROVIDER(S): Roland Fowler MD CHIEF COMPLAINT: Change in mentation, possible fall versus syncope MEDICAL DECISION MAKING: Patient presents due to concern for possible change in mentation and possible falls the patient was found down. Wound culture obtained. The patient was hypoxic at the time of EMS presentation but currently not requiring any supplemental oxygen. Patient was noted to have right foot wound. IV was established and blood was obtained. Patient was given a very very small amount of IV fluids in order to not fail sepsis protocols only 10 cc given as the patient did undergo mlelm-my-foln cardiac ultrasound which showed depressed EF and plethoric IVC. Patient was ordered Lasix IV 40 mg. Patient's initial lactateWas 6 patient has a normal white count normal hemoglobin and platelet count. The patient's kidney function is unremarkable. Glucose 371. BNP is elevated with associated elevation in troponin at 138. I did discuss the patient's case with on-call account installation specialist Dr. Cabral who did not recommend IV Lopressor in the setting of patient's acute onset CHF but recommends diuresis at this time. Patient's urinalysis does not show evidence of obvious infection. Repeat lactate was 4.9. Patient was ordered Rocephin for the foot wound additional care deferred to the inpatient team. I did speak with on-call hospital service Catherine Coyle PA-C and Dr. Cruz. Discussion w/ other healthcare providers: Selin Coyle PA-C and Dr. Cruz inpatient medicine service Dr. Cabral with cardiology Prior /Outside records reviewed: Reviewed a discharge summary from January 12, [address] Robledo. Known type I diabetic hyperlipidemia CAD hypertension CVA aphasia Schatzki ring Mnire's smell loss cochlear implants was recently in the hospital for acute CHF and pleural effusions. Patient was admitted at that time due to concern for acute on chronic heart failure with reduced ejection fraction and diastolic dysfunction. Patient did have pulmonary edema pleural effusions and echo completed December 29, 2019 for EF of 35 to 40% with moderate to severe mitral regurg. Patient was diuresed with IV Lasix. Per review of Dr. Thomas's cardiology progress note chart records reflect probable noncompliance with medications and decompensated heart failure. Differential diagnosis: Reactive airway disease, pneumonia, pneumothorax, pneumonitis, COPD, CHF, infections, ACS, pulmonary embolism, musculoskeletal as well as other pathologies were considered. Diagnostics, as interpreted by me: ECG:Sinus tachycardia, rate 116, normal GA and QRS, left axis deviation no ST elevations. Cardiac monitoring: An order was placed for continuous cardiac monitoring. The monitor shows a rate of 119 with tachycardic and regular rhythm. Patient was placed on pulse oximetry Medical decision rules: None Imaging studies: I informally interpreted the patient's chest x-ray with bilateral pleural effusions with formal report to follow. HPI: Patient presents via EMS from home. Patient reportedly lives with son when he heard a thud and went upstairs found patient on the floor patient does have prior history of stroke resulting in hearing deficits family report patient is complaining plan swollen and she has been messing with it patient also has cognitive deficits but sounds unclear if this is her baseline. Does report the patient has had decline in mentation over the last 3 days. Patient reported was 84% on room air and increased to 97% on 4 L nondiabetic with a BSG 332. Difficult to obtain significant history from patient prior aphasia. PAST MEDICAL HISTORY: See Below PAST SURGICAL HISTORY: See Below SOCIAL HISTORY: See Below HOME MEDICATIONS: See Below ALLERGIES: See Below VITALS: See Below PHYSICAL EXAMINATION: GENERAL: NAD, non-toxic. EYE EXAM: Normal conjunctiva. PERRL, no anisocoria and EOM's grossly intact w/o pain. OROPHARYNX: Moist mucus membranes, grossly normal dentition. NECK: Trachea midline, no stridor. Supple, no nuchal rigidity, no adenopathy, non-tender. No signs of meningismus. FROM of the neck with good chin to chest and neck extension. LUNGS: Clear to auscultation. Normal chest wall mechanics. HEART: NSR, no MRG. ABDOMEN: Abdomen soft, non-tender, no masses, no rebound or guarding. BACK: No CVA TTP. SKIN: No rashes and no bruising. UPPER EXTREMITIES: Upper extremities are grossly normal. LOWER EXTREMITIES: Bilateral lower extremity edema, foot wound noted to the dorsal aspect of the distal right foot which is open and stage II did not appear to violate deeper tissues. No surrounding crepitus but does have surrounding erythema. No purulent drainage. NEURO EXAM: Awake and alert follows basic commands moves all 4 extremities, difficult speech with expressive aphasia, no obvious facial droop Past Med/Surg History Medical History Bilateral pleural effusion Unspecified hereditary retinal dystrophy Bilateral sensorineural hearing loss Bilateral myopia 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 Degeneration of cervical intervertebral disc History of TMJ disorder Hemiplegia Diabetic polyneuropathy Aphasia as late effect of cerebrovascular accident CAD (coronary artery disease) Statin intolerance Atherosclerosis of coronary artery Macular degeneration Mnire's disease Schatzki's ring MELAS (mitochondrial encephalopathy, lactic acidosis and stroke-like episodes) HLD (hyperlipidemia) Type 1 diabetes mellitus Hypertension Surgical History S/P coronary artery stent placement History of heart artery stent History of cochlear implant Left in 2014 History of left heart catheterization 07/2019 which revealed 30% proximal LAD otherwise clean coronaries History of colonoscopy with polypectomy History of cholecystectomy History of hysterectomy Family History Mother Coronary heart disease, Onset Age: 70 Father Coronary heart disease, Onset Age: 50 Daughter MELAS (mitochondrial encephalopathy, lactic acidosis and stroke-like episodes) Social History Smoking Status: Never smoker Tobacco Type: Cigarettes Second Hand Exposure: No; Do You Dip or Chew Tobacco: No; Hx Alcohol Use: No Hx Substance Use: No Preferred Language: French Communication Ability: Impaired Communication Ability Comment: Cochlear implant, communication difficult at times Hearing Ability: Cochlear Implant Media Executive Required: No Beliefs That Will Affect Care: None marital status: Current Living Situation: Family Current Living Situation Comment: with son Lee current occupational status: retired and disabled How many Children do You have: 2 Other Information That Helps Us Care for You: No Feels Safe at Home: Yes Safety Concerns: Feels Safe At This Time Assistive Devices: Cane, Glasses and Other Assistive Devices Comment: Chochlar implant Allergies Allergies Allergy/AdvReac Type Severity Reaction Status Date / Time atorvastatin AdvReac Intermediate myalgias, Verified 01/08/24 21:34 dysarthria prednisone AdvReac Intermediate metabolic-h Verified 01/08/24 21:34 yperglycemi a Home Meds Home Medications Medication Instructions Recorded Confirmed vit A 12,500 unit-zinc 12.5 1 cap PO QAM 05/14/20 02/21/24 [id number] #261 capsule (Lipotriad Vision Support) evolocumab 140 mg/mL subcutaneous 140 mg subcut .[id number] 08/10/21 02/21/24 pen injector (Repshabbir SureLuis Felipeick) coenzyme Q10 100 mg capsule 100 mg PO DAILY 01/14/22 02/21/24 (CoQ-10) Previous Rx's Medication Instructions Recorded aspirin 81 mg tablet,delayed 81 mg PO QAM #90 tabs 05/17/20 release nitroglycerin 0.4 mg sublingual 0.4 mg sublingual UD PRN chest 05/17/20 tablet (Nitrostat) pain #30 tabs furosemide 40 mg tablet (Lasix) 40 mg PO DAILY #30 tabs 01/12/24 insulin aspart U-100 100 unit/mL 3 unit (0.03 mL) subcut TIDM #15 mL 01/12/24 (3 mL) subcutaneous pen (Novolog FlexPen U-100 Insulin aspart) insulin glargine 100 unit/mL (3 15 unit (0.15 mL) subcut HS #15 mL 01/12/24 mL) subcutaneous pen (Lantus Solostar U-100 Insulin) metoprolol succinate 25 mg 25 mg PO BID #60 tabs 01/12/24 tablet,extended release 24 hr Results & Data (ED) Vital Signs Vital Signs - 24 hr 02/21/24 15:01 02/21/24 15:24 02/21/24 15:27 Temperature Temperature Source Rectal Pulse Rate 117 H Pulse Rate [Apical] 79 Respiratory Rate 18 22 Respiratory Effort / Characteristics Non-Labored Spontaneous Respiratory Depth Normal Respiratory Pattern Blood Pressure 109/94 Blood Pressure [Left Arm] 124/89 Blood Pressure Mean 99 Blood Pressure Mean [Left Arm] 100 Blood Pressure Position Lying Blood Pressure Position [Left Arm] Lying Pulse Oximetry 96 95 96 Oxygen Delivery Method Room Air Room Air Room Air Sepsis Recent Fever Within 48 Hours No Sepsis New/Unexplained Change in Mental Status No Sepsis Action Taken by Nursing No Action Required 02/21/24 15:34 02/21/24 15:35 02/21/24 16:28 Temperature 34.3 C L Temperature Source Rectal Pulse Rate 119 H Pulse Rate [Apical] Respiratory Rate Respiratory Effort / Characteristics Respiratory Depth Respiratory Pattern Blood Pressure Blood Pressure [Left Arm] Blood Pressure Mean Blood Pressure Mean [Left Arm] Blood Pressure Position Blood Pressure Position [Left Arm] Pulse Oximetry 96 Oxygen Delivery Method Room Air Sepsis Recent Fever Within 48 Hours Sepsis New/Unexplained Change in Mental Status Sepsis Action Taken by Nursing 02/21/24 17:11 Temperature 34.5 C L Temperature Source Rectal Pulse Rate Pulse Rate [Apical] 119 H Respiratory Rate 20 Respiratory Effort / Characteristics Non-Labored Spontaneous Respiratory Depth Normal Respiratory Pattern Regular Blood Pressure Blood Pressure [Left Arm] 127/71 Blood Pressure Mean Blood Pressure Mean [Left Arm] 89 Blood Pressure Position Blood Pressure Position [Left Arm] Lying Pulse Oximetry 97 Oxygen Delivery Method Room Air Sepsis Recent Fever Within 48 Hours Sepsis New/Unexplained Change in Mental Status Sepsis Action Taken by Detention Medications Current Medication List: was personally reviewed by me Laboratory Data Attestation: I reviewed the patient's lab results. 02/22/24 06:59 02/22/24 06:59 Lab Results 02/21/24 02/21/24 02/21/24 Range/Units 15:00 15:16 15:17 WBC 9.94 (4.8-10.8) K/ul RBC 5.64 H (4.20-5.40) M/uL Hgb 14.4 (12.0-16.0) g/dl Hct 44.0 (37.0-47.0) % MCV 78.0 L (80.0-100.0) fL MCH 25.5 (25.0-34.0) pg MCHC 32.7 (32.0-36.0) g/dL RDW Std Deviation 44.9 (36.4-46.3) fL RDW Coeff of Marj 17.4 H (11.5-14.5) % Plt Count 192 (130-400) K/uL MPV 12.0 (9.4-12.4) fL Immature Gran % (Auto) 0.3 % Neut % (Auto) 90.4 % Lymph % (Auto) 4.7 % Citrus % (Auto) 4.4 % Eos % (Auto) 0.1 % Baso % (Auto) 0.1 % Neut # (Auto) 8.98 H (1.40-6.50) K/uL Lymph # (Auto) 0.47 L (1.20-3.40) K/uL Citrus # (Auto) 0.44 (0.11-0.59) K/uL Eos # (Auto) 0.01 (0.00-0.50) K/uL Baso # (Auto) 0.01 (0.00-0.20) K/uL Immature Gran # (Auto) 0.03 (0.01-0.20) K/uL Polychromasia 1+ Ovalocytes 1+ Echinocytes 2+ Sodium 132 L (136-145) mmol/L Potassium 3.8 (3.5-5.1) mmol/L Chloride 89 L (98-107) mmol/L Carbon Dioxide 24 (21-32) mmol/L Anion Gap 19 H (3-11) BUN 68 H (6-23) mg/dl Creatinine 1.07 (0.6-1.2) mg/dl Est Cr Clr Drug Dosing 41.9 ml/min Est GFR ( Amer) 62.2 ml/min Est GFR (Non-Af Amer) 53.7 ml/min BUN/Creatinine Ratio 63.6 H (10-20) Glucose 371 H* (70-99(Fasting)) mg/dl POC Glucose 78 347 H* (70-99) mg/dl Lactate (0.4-2.0) mmol/L Calcium 9.4 (8.6-10.3) mg/dl Magnesium 1.8 (1.7-2.4) mg/dl Total Bilirubin 2.1 H (0.2-1.0) mg/dl AST 79 H (13-39) U/L ALT 60 H (7-52) U/L Alkaline Phosphatase 87 (34-104) U/L Total Creatine Kinase 461 H (26-192) U/L Troponin I High Sens 138.7 H* (0-14) pg/ml B-Natriuretic Peptide 1097 H (0-100) pg/ml Total Protein 6.7 (6.0-8.3) gm/dl Albumin 3.7 (3.4-5.0) gm/dl Globulin 3.0 (2.5-4.0) gm/dl Albumin/Globulin Ratio 1.2 (0.9-2) TSH 2.401 (0.300-4.500) uIu/ml Urine Color Urine Appearance (Clear) Urine pH (4.5-7.5) Ur Specific [place] (1.000-1.030) Urine Protein (Negative) Urine Glucose (UA) (Negative) Urine Ketones (Negative) Urine Blood (Negative) Urine Nitrite (Negative) Urine Bilirubin (Negative) Urine Urobilinogen (Negative) Ur Leukocyte Esterase (Negative) Urine WBC (Auto) (0-5) /hpf Urine RBC (Auto) (0-4) /hpf U Hyaline Cast (Auto) (0-5) /lpf U Epithel Cells (Auto) (0-5) /lpf Urine Bacteria (Auto) (Negative) 02/21/24 02/21/24 02/21/24 Range/Units 15:54 17:10 17:32 WBC (4.8-10.8) K/ul RBC (4.20-5.40) M/uL Hgb (12.0-16.0) g/dl Hct (37.0-47.0) % MCV (80.0-100.0) fL MCH (25.0-34.0) pg MCHC (32.0-36.0) g/dL RDW Std Deviation (36.4-46.3) fL RDW Coeff of Marj (11.5-14.5) % Plt Count (130-400) K/uL MPV (9.4-12.4) fL Immature Gran % (Auto) % Neut % (Auto) % Lymph % (Auto) % Citrus % (Auto) % Eos % (Auto) % Baso % (Auto) % Neut # (Auto) (1.40-6.50) K/uL Lymph # (Auto) (1.20-3.40) K/uL Citrus # (Auto) (0.11-0.59) K/uL Eos # (Auto) (0.00-0.50) K/uL Baso # (Auto) (0.00-0.20) K/uL Immature Gran # (Auto) (0.01-0.20) K/uL Polychromasia Ovalocytes Echinocytes Sodium (136-145) mmol/L Potassium (3.5-5.1) mmol/L Chloride (98-107) mmol/L Carbon Dioxide (21-32) mmol/L Anion Gap (3-11) BUN (6-23) mg/dl Creatinine (0.6-1.2) mg/dl Est Cr Clr Drug Dosing ml/min Est GFR ( Amer) ml/min Est GFR (Non-Af Amer) ml/min BUN/Creatinine Ratio (10-20) Glucose (70-99(Fasting)) mg/dl POC Glucose (70-99) mg/dl Lactate 6.6 H* (0.4-2.0) mmol/L Calcium (8.6-10.3) mg/dl Magnesium (1.7-2.4) mg/dl Total Bilirubin (0.2-1.0) mg/dl AST (13-39) U/L ALT (7-52) U/L Alkaline Phosphatase (34-104) U/L Total Creatine Kinase (26-192) U/L Troponin I High Sens 125.5 H* (0-14) pg/ml B-Natriuretic Peptide (0-100) pg/ml Total Protein (6.0-8.3) gm/dl Albumin (3.4-5.0) gm/dl Globulin (2.5-4.0) gm/dl Albumin/Globulin Ratio (0.9-2) TSH (0.300-4.500) uIu/ml Urine Color Dark Yellow Urine Appearance Clear (Clear) Urine pH 5.0 (4.5-7.5) Ur Specific [place] 1.024 (1.000-1.030) Urine Protein 2+ H (Negative) Urine Glucose (UA) 3+ H (Negative) Urine Ketones 1+ H (Negative) Urine Blood Negative (Negative) Urine Nitrite Negative (Negative) Urine Bilirubin 1+ H (Negative) Urine Urobilinogen Negative (Negative) Ur Leukocyte Esterase 1+ H (Negative) Urine WBC (Auto) 10-30 H (0-5) /hpf Urine RBC (Auto) 0-4 (0-4) /hpf U Hyaline Cast (Auto) 1-5 (0-5) /lpf U Epithel Cells (Auto) >30 H (0-5) /lpf Urine Bacteria (Auto) Negative (Negative) 02/21/24 Range/Units 17:33 WBC (4.8-10.8) K/ul RBC (4.20-5.40) M/uL Hgb (12.0-16.0) g/dl Hct (37.0-47.0) % MCV (80.0-100.0) fL MCH (25.0-34.0) pg MCHC (32.0-36.0) g/dL RDW Std Deviation (36.4-46.3) fL RDW Coeff of Marj (11.5-14.5) % Plt Count (130-400) K/uL MPV (9.4-12.4) fL Immature Gran % (Auto) % Neut % (Auto) % Lymph % (Auto) % Citrus % (Auto) % Eos % (Auto) % Baso % (Auto) % Neut # (Auto) (1.40-6.50) K/uL Lymph # (Auto) (1.20-3.40) K/uL [place] # (Auto) (0.11-0.59) K/uL Eos # (Auto) (0.00-0.50) K/uL Baso # (Auto) (0.00-0.20) K/uL Immature Gran # (Auto) (0.01-0.20) K/uL Polychromasia Ovalocytes Echinocytes Sodium (136-145) mmol/L Potassium (3.5-5.1) mmol/L Chloride (98-107) mmol/L Carbon Dioxide (21-32) mmol/L Anion Gap (3-11) BUN (6-23) mg/dl Creatinine (0.6-1.2) mg/dl Est Cr Clr Drug Dosing ml/min Est GFR ( Amer) ml/min Est GFR (Non-Af Amer) ml/min BUN/Creatinine Ratio (10-20) Glucose (70-99(Fasting)) mg/dl POC Glucose (70-99) mg/dl Lactate 4.9 H* (0.4-2.0) mmol/L Calcium (8.6-10.3) mg/dl Magnesium (1.7-2.4) mg/dl Total Bilirubin (0.2-1.0) mg/dl AST (13-39) U/L ALT (7-52) U/L Alkaline Phosphatase (34-104) U/L Total Creatine Kinase (26-192) U/L Troponin I High Sens (0-14) pg/ml B-Natriuretic Peptide (0-100) pg/ml Total Protein (6.0-8.3) gm/dl Albumin (3.4-5.0) gm/dl Globulin (2.5-4.0) gm/dl Albumin/Globulin Ratio (0.9-2) TSH (0.300-4.500) uIu/ml Urine Color Urine Appearance (Clear) Urine pH (4.5-7.5) Ur Specific [place] (1.000-1.030) Urine Protein (Negative) Urine Glucose (UA) (Negative) Urine Ketones (Negative) Urine Blood (Negative) Urine Nitrite (Negative) Urine Bilirubin (Negative) Urine Urobilinogen (Negative) Ur Leukocyte Esterase (Negative) Urine WBC (Auto) (0-5) /hpf Urine RBC (Auto) (0-4) /hpf U Hyaline Cast (Auto) (0-5) /lpf U Epithel Cells (Auto) (0-5) /lpf Urine Bacteria (Auto) (Negative) Administered Medications Aspirin (Aspirin 81 Mg Ectab) 81 mg PO QAM [facility] Stop: 03/23/24 08:59 Last Admin: 02/22/24 09:10 Dose: Not Given Documented By: ALANIS Dextrose (Dextrose 50% 50 Ml Syringe) 25 - 50 ml IV UD PRN; Protocol PRN Reason: Hypoglycemia Protocol Stop: 03/23/24 10:14 Last Admin: 02/22/24 10:19 Dose: 25 ml Documented By: ALANIS Furosemide (Furosemide 40 Mg/4 Ml Vial) 40 mg IV TID@0600,1200,1700 [facility] Stop: 03/22/24 21:09 Last Admin: 02/22/24 06:14 Dose: 40 mg Documented By: Admin: 02/21/24 23:11 Dose: 40 mg Documented By: MARIAH Vancomycin HCl 1,000 mg/ (Sodium Chloride) 270 mls @ 200 mls/hr IV Q24H [facility] Stop: 02/24/24 07:59 Last Infusion: 02/22/24 10:51 Dose: Infused Documented By: Admin: 02/22/24 09:15 Dose: 200 mls/hr Documented By: SS Piperacillin Sod/Tazobactam (Sod 4.5 gm/ Dextrose) 100 mls @ 25 mls/hr IV Q8H [facility]; Protocol Stop: 02/24/24 03:59 Last Admin: 02/22/24 11:56 Dose: 25 mls/hr Documented By: Infusion: 02/22/24 08:16 Dose: Infused Documented By: Admin: 02/22/24 04:16 Dose: 25 mls/hr Documented By: CR Heparin Sodium/Dextrose (Heparin Sodium/Dextrose) 25,000 units in 500 mls @ 19 mls/hr IV .Q24H [facility]; Protocol Stop: 03/23/24 00:29 Last Titration: 02/22/24 10:43 Dose: 950 units/hr, 19 mls/hr Documented By: ALANIS Co-signed By: DTT Admin: 02/22/24 01:08 Dose: 950 units/hr, 19 mls/hr Documented By: MARIAH Co-signed By: VK Acetaminophen (Ofirmev) 1,000 mg in 100 mls @ 400 mls/hr IV Q8 [facility] Stop: 02/25/24 09:59 Last Infusion: 02/22/24 10:51 Dose: Infused Documented By: Admin: 02/22/24 10:25 Dose: 400 mls/hr Documented By: ALANIS Insulin Aspart (Insulin Aspart Per Unit Charge) 0 units SC ACHS [facility] Stop: 03/23/24 11:29 Last Admin: 02/22/24 12:37 Dose: 2 units Documented By: SS Co-signed By: REMINGTON Metoprolol Succinate (Metoprolol Succ 25mg Ext Rel Tab) 25 mg PO BID [facility] Stop: 03/23/24 08:59 Last Admin: 02/22/24 09:10 Dose: Not Given Documented By: SS Metoprolol Tartrate (Metoprolol Tartrate 1 Mg/Ml Vial) 2.5 mg IV Q4 [facility] Stop: 03/23/24 11:59 Last Admin: 02/22/24 12:39 Dose: 2.5 mg Documented By: SS Discontinued Medications Enoxaparin Sodium (Enoxaparin Inj 40 Mg/0.4 Ml Syr) 40 mg SQ Q24H [facility] Stop: 03/22/24 20:59 Last Admin: 02/21/24 23:11 Dose: 40 mg Documented By: CR Furosemide (Furosemide 40 Mg/4 Ml Vial) 40 mg IV ONE ONE Stop: 02/21/24 16:00 Last Admin: 02/21/24 16:18 Dose: Not Given Documented By: DENISE Furosemide (Furosemide 40 Mg/4 Ml Vial) 40 mg IV ONE ONE Stop: 02/21/24 18:03 Last Admin: 02/21/24 18:37 Dose: 40 mg Documented By: HUBERT Heparin Sodium/Dextrose (Heparin Iv Adult Wt-Based Standard *No* Initial Bolus Protocol) 1 each IV ONE STA; Protocol Stop: 02/22/24 00:10 Last Admin: 02/22/24 01:36 Dose: 1 each Documented By: MARIAH Ceftriaxone Sodium (Rocephin) 2,000 mg in 50 mls @ 100 mls/hr IV NOW STA Stop: 02/21/24 18:42 Last Infusion: 02/21/24 19:29 Dose: Infused Documented By: Admin: 02/21/24 18:37 Dose: 100 mls/hr Documented By: HUBERT Sodium Chloride (Nss) 250 mls @ 999 mls/hr IV .Q16M ONE Stop: 02/21/24 18:29 Last Admin: 02/21/24 18:39 Dose: Not Given Documented By: HUBERT Acetaminophen (Ofirmev) 1,000 mg in 100 mls @ 400 mls/hr IV NOW STA Stop: 02/21/24 18:53 Last Infusion: 02/21/24 19:50 Dose: Infused Documented By: Admin: 02/21/24 18:56 Dose: 400 mls/hr Documented By: HUBERT Vancomycin HCl 1,250 mg/ (Sodium Chloride) 275 mls @ 200 mls/hr IV 1815 ONE Stop: 02/21/24 19:37 Last Infusion: 02/21/24 21:28 Dose: Infused Documented By: Admin: 02/21/24 19:50 Dose: 200 mls/hr Documented By: DENISE Potassium Chloride (K Regis / Wtr) 10 meq in 100 mls @ 100 mls/hr IV ONE ONE Stop: 02/21/24 20:15 Last Infusion: 02/21/24 21:21 Dose: Infused Documented By: Admin: 02/21/24 19:50 Dose: 100 mls/hr Documented By: DENISE Insulin Human Regular 250 (units/ Sodium Chloride) 250 mls @ 0 mls/hr IV .Q0M [facility]; Protocol Stop: 03/22/24 20:58 Last Titration: 02/22/24 10:02 Dose: 0 units/hr, 0 mls/hr Documented By: SS Co-signed By: JB Titration: 02/22/24 09:00 Dose: 1.3 units/hr, 1.3 mls/hr Documented By: SS Co-signed By: MHN Titration: 02/22/24 05:47 Dose: 1.6 units/hr, 1.6 mls/hr Documented By: CR Co-signed By: ASM Titration: 02/22/24 04:13 Dose: 1.6 units/hr, 1.6 mls/hr Documented By: CR Co-signed By: ASM Titration: 02/22/24 03:18 Dose: 1.6 units/hr, 1.6 mls/hr Documented By: CR Co-signed By: ASM Titration: 02/22/24 02:06 Dose: 1.6 units/hr, 1.6 mls/hr Documented By: CR Co-signed By: ASM Titration: 02/22/24 01:07 Dose: 2 units/hr, 2 mls/hr Documented By: CR Co-signed By: VK Titration: 02/22/24 00:12 Dose: 1.7 units/hr, 1.7 mls/hr Documented By: CR Co-signed By: VK Admin: 02/21/24 23:05 Dose: 1.4 units/hr, 1.4 mls/hr Documented By: CR Co-signed By: VK Piperacillin Sod/Tazobactam (Sod 4.5 gm/ Dextrose) 100 mls @ 200 mls/hr IV NOW ONE; Protocol Stop: 02/21/24 21:44 Last Infusion: 02/22/24 00:04 Dose: Infused Documented By: Admin: 02/21/24 23:12 Dose: 200 mls/hr Documented By: MARIAH Potassium Chloride (K Regis / Wtr) 10 meq in 100 mls @ 100 mls/hr IV Q1H [facility] Stop: 02/22/24 11:59 Last Admin: 02/22/24 13:08 Dose: 100 mls/hr Documented By: Infusion: 02/22/24 12:55 Dose: Infused Documented By: Admin: 02/22/24 11:55 Dose: 100 mls/hr Documented By: Infusion: 02/22/24 11:45 Dose: Infused Documented By: Admin: 02/22/24 10:45 Dose: 100 mls/hr Documented By: ALANIS Insulin Aspart (Insulin Aspart Per Unit Charge) 0 units SC ACHS [facility] Stop: 03/22/24 20:59 Last Admin: 02/22/24 09:05 Dose: Not Given Documented By: Admin: 02/21/24 23:05 Dose: Not Given Documented By: CR Insulin Glargine (Lantus Per Unit Charge) 8 units SC ONE ONE Stop: 02/22/24 10:46 Last Admin: 02/22/24 10:44 Dose: 8 units Documented By: ALANIS Co-signed By: DTT Insulin Human Regular (Novolin-R Bolus From Bag) 1.5 units IV ONE ONE Stop: 02/21/24 21:46 Last Admin: 02/21/24 23:05 Dose: 1.5 units Documented By: MARIAH Co-signed By: VK Metoprolol Succinate (Metoprolol Succ 25mg Ext Rel Tab) 25 mg PO ONE ONE Stop: 02/21/24 19:55 Last Admin: 02/21/24 20:12 Dose: 25 mg Documented By: DENISE Miscellaneous (Moderate Stress Level ) 1 each N/A ONE ONE Stop: 02/21/24 21:00 Last Admin: 02/21/24 23:09 Dose: 1 each Documented By: MARIAH Imaging Data Radiologist's Impression: Chest X-Ray 02/21/24 15:30 XR chest 1V portable HISTORY: weakness COMPARISON: Chest 01/12/2024. FINDINGS: No pneumothorax. The heart remains enlarged. There are small bilateral pleural effusions with progressive perihilar interstitial/vascular thickening consistent with pulmonary edema. Left basilar linear densities favor subsegmental atelectasis. There are calcifications within the aortic knob. No acute fractures. IMPRESSION: Interval progression of the pulmonary edema with small bilateral pleural effusions. ACT 112: Negative or not required by law. Electronically signed by: Caleb Pace M.D. 02/21/2024 4:[address] 02/21/24 15:[address] DOSE: HISTORY: Neck pain. fall TECHNIQUE: Multiaxial CT images of the cervical spine were performed and reformatted in the sagittal and coronal plane without the use of contrast. A dose lowering technique was utilized adhering to the principles of ALARA. COMPARISON: None. FINDINGS: No fractures. No subluxation. Prevertebral soft tissues and the C1-C2 interval are intact. No pneumothorax. Posterior fusion defect at C1. Left cochlear implant with a few opacified left mastoid air cells. Interlobular septal thickening at the lung apices consistent with pulmonary edema. There are bilateral pleural effusions. Moderate facet degenerative changes within the cervical spine. Severe disc space narrowing at C6-C7 with endplate osteophytes. IMPRESSION: 1. No fractures within the cervical spine. 2. Pulmonary edema and bilateral pleural effusions. ACT 112: Negative or not required by law. Electronically signed by: Caleb Pace M.D. 02/21/2024 4:[address] 02/21/24 15:31 CT SCAN OF THE BRAIN WITHOUT IV CONTRAST CLINICAL HISTORY: Change in mental status. COMPARISON STUDY: CT of the brain dated 07/23/2022. TECHNIQUE: Unenhanced axial CT scan of the brain is performed from the vertex to the skull base. A dose lowering technique was utilized adhering to the principles of ALARA. There is streak artifact from electronic device along the left posterior convexity. There is also mild motion artifact. CT DOSE: 1075.27 mGy.cm FINDINGS: Brain parenchyma: There is age-advanced involutional change noting moderate confluent subcortical and periventricular microangiopathic disease. There is no hemorrhage, mass effect, or evidence of acute territorial ischemia by CT criteria. Mineralization is noted in the basal ganglia. A focus of left temporal encephalomalacia is consistent with a remote insult. Alcantara-white matter differentiation is preserved. No extra-axial fluid collection is seen. Ventricles, sulci, cisterns: Prominent secondary to involutional change. Intracranial vasculature: There is atherosclerotic calcification of the cavernous carotid and vertebral artery. Calvarium: Unremarkable. Sinuses and mastoids: The visualized paranasal sinuses are clear. There is postoperative change seen in left mastoid air cells with a left mastoid effusion. The right mastoid air cells are well pneumatized. Orbits: The bony orbits are grossly intact. IMPRESSION: There is no hemorrhage, mass effect, or evidence of acute territorial ischemia by CT criteria. ACT 112: Negative or not required by law. Electronically signed by: Wilbert Lee M.D. 02/21/2024 4:41 PM Discharge Plan Visit Data Chief Complaint: Altered Mental Status Stated Complaint: FALL, AMS ED Provider: Roland Fowler Discharge Problem: Acute exacerbation of CHF (congestive heart failure), Elevated troponin, Tachycardia, Hyperglycemia, Bilateral pleural effusion, Fall, Cellulitis of foot Patient Disposition: Admitted As Inpatient Discharge Instructions Interventions: ED Discharge Assessment Last Done: 02/21/24 20:54 Discharge Problem: Acute exacerbation of CHF (congestive heart failure) Qualifiers: Heart failure type: unspecified Qualified Code(s): I50.9 - Heart failure, unspecified Fall Qualifiers: Encounter type: initial encounter Qualified Code(s): W19.XXXA - Unspecified fall, initial encounter
--- NOTE | 2024-02-21 16:04 | XRay Report ---
XR chest 1V portable HISTORY: weakness COMPARISON: Chest 01/12/2024. FINDINGS: No pneumothorax. The heart remains enlarged. There are small bilateral pleural effusions wi th progressive perihilar interstitial/vascular thickening consistent with pulmonary edema. Left basil ar linear densities favor subsegmental atelectasis. There are calcifications within the aortic knob. No acute fractures. IMPRESSION: Interval progression of the pulmonary edema with small bilateral pleural effusions. ACT 112: Negative or not required by law. Electronically signed by: Caleb Pace M.D. 02/21/2024 4:02 PM
[2024-02-21] MEDS: FUROSEMIDE 40 MG/4 ML VIAL IV ONE ×2 (16:18→18:37)
[2024-02-21 16:26] LABS: Albumin Globulin Ratio 1.2 (0.9-2); Albumin Level 3.7 gm/dl (3.4-5.0); BUN Creatinine Ratio 63.6 (10-20); Basophils # (auto) 0.01 K/uL (0.00-0.20); Basophils % (auto) 0.1 %; Bilirubin,Total 2.1 mg/dl (0.2-1.0); Calcium 9.4 mg/dl (8.6-10.3); Creatinine Clr Calc Pharmacy 41.9 ml/min; Echinocytes 2+; Eosinophils # (auto) 0.01 K/uL (0.00-0.50); Eosinophils % (auto) 0.1 %; Est GFR (African American) 62.2 ml/min; Est GFR (Non-African American) 53.7 ml/min; Hemoglobin 14.4 g/dl (12.0-16.0); Immature Granulocytes # (auto) 0.03 K/uL (0.01-0.20); Immature Granulocytes % (auto) 0.3 %; Lymphocytes # (auto) 0.47 K/uL (1.20-3.40); Lymphocytes % (auto) 4.7 %; Magnesium 1.8 mg/dl (1.7-2.4); Mean Corpuscular Hemoglobin 25.5 pg (25.0-34.0); Mean Corpuscular Hgb Conc 32.7 g/dL (32.0-36.0); Monocytes # (auto) 0.44 K/uL (0.11-0.59); Monocytes % (auto) 4.4 %; Neutrophils # (auto) 8.98 K/uL (1.40-6.50); Neutrophils % (auto) 90.4 %; Ovalocytes 1+; Platelet Count 192 K/uL (130-400); Polychromasia 1+; Potassium 3.8 mmol/L (3.5-5.1); RDW Coefficient of Variation 17.4 % (11.5-14.5); RDW Standard Deviation 44.9 fL (36.4-46.3); Red Blood Count 5.64 M/uL (4.20-5.40); Total Protein 6.7 gm/dl (6.0-8.3); Troponin I High Sensitivity 138.7 pg/ml (0-14); White Blood Count 9.94 K/ul (4.8-10.8)
[2024-02-21 16:28] LABS: Thyroid Stimulating Hormone 2.401 uIu/ml (0.300-4.500)
--- NOTE | 2024-02-21 16:41 | CT Scan Report ---
CERVICAL SPINE CT CT DOSE: HISTORY: Neck pain. fall TECHNIQUE: Multiaxial CT images of the cervical spine were performed and reformatted in the sagittal and coronal plane without the use of contrast. A dose lowering technique was utilized adhering to th e principles of ALARA. COMPARISON: None. FINDINGS: No fractures. No subluxation. Prevertebral soft tissues and the C1-C2 interval are intact. No pneumothorax. Posterior fusion defect at C1. Left cochlear implant with a few opacified left masto id air cells. Interlobular septal thickening at the lung apices consistent with pulmonary edema. Ther e are bilateral pleural effusions. Moderate facet degenerative changes within the cervical spine. Sev ere disc space narrowing at C6-C7 with endplate osteophytes. IMPRESSION: 1. No fractures within the cervical spine. 2. Pulmonary edema and bilateral pleural effusions. ACT 112: Negative or not required by law. Electronically signed by: Caleb Pace M.D. 02/21/2024 4:40 PM
--- NOTE | 2024-02-21 16:42 | CT Scan Report ---
CT SCAN OF THE BRAIN WITHOUT IV CONTRAST CLINICAL HISTORY: Change in mental status. COMPARISON STUDY: CT of the brain dated 07/23/2022. TECHNIQUE: Unenhanced axial CT scan of the brain is performed from the vertex to the skull base. A do se lowering technique was utilized adhering to the principles of ALARA. There is streak artifact from electronic device along the left posterior convexity. There is also mild motion artifact. CT DOSE: 1075.27 mGy.cm FINDINGS: Brain parenchyma: There is age-advanced involutional change noting moderate confluent subcortical and periventricular microangiopathic disease. There is no hemorrhage, mass effect, or evidence of acute territorial ischemia by CT criteria. Mineralization is noted in the basal ganglia. A focus of left te mporal encephalomalacia is consistent with a remote insult. Alcantara-white matter differentiation is pres erved. No extra-axial fluid collection is seen. Ventricles, sulci, cisterns: Prominent secondary to involutional change. Intracranial vasculature: There is atherosclerotic calcification of the cavernous carotid and vertebr al artery. Calvarium: Unremarkable. Sinuses and mastoids: The visualized paranasal sinuses are clear. There is postoperative change seen in left mastoid air cells with a left mastoid effusion. The right mastoid air cells are well pneumati zed. Orbits: The bony orbits are grossly intact. IMPRESSION: There is no hemorrhage, mass effect, or evidence of acute territorial ischemia by CT ed bui. ACT 112: Negative or not required by law. Electronically signed by: Wilbert Lee M.D. 02/21/2024 4:41 PM
[2024-02-21 17:28] LABS: Appearance Urine Clear (Clear); Bacteria Urine Automated Negative (Negative); Blood Urine Negative (Negative); Color Urine Dark Yellow; Epithelial Cell Urine Auto >30 /lpf (0-5); Glucose Urine UA 3+ (Negative); Ketones Urine 1+ (Negative); Leukocyte Esterase Urine 1+ (Negative); Nitrite Urine Negative (Negative); Protein Urine 2+ (Negative); RBC Urine Automated 0-4 /hpf (0-4); Specific Gravity Urine 1.024 (1.000-1.030); Urobilinogen Urine Negative (Negative)
[2024-02-21 17:32] LABS: Bilirubin Urine 1+ (Negative)
[2024-02-21] MEDS: SODIUM CHLORIDE 0.9% 250 ML IV ONE (18:37)
[2024-02-21] MEDS: cefTRIAXone SODIUM 2,000 MG/50 ML BAG IV STA (18:37)
[2024-02-21] MEDS ORDERED: VANCOMYCIN CONSULT ACTIVE PRN ×2 (18:52→20:59)
[2024-02-21] MEDS: ACETAMINOPHEN 1,000 MG/100 ML VIAL IV STA (18:56)
--- NOTE | 2024-02-21 19:11 | History & Physical Report ---
Date of Service February 21, 2024 Assessment & Plan (1) Acute on chronic heart failure with reduced ejection fraction and diastolic dysfunction: (2) Fall: (3) AMS (altered mental status): (4) Cellulitis of foot: (5) Elevated troponin: (6) Hyperglycemia: (7) Type 1 diabetes mellitus: (8) CAD (coronary artery disease): (9) MELAS (mitochondrial encephalopathy, lactic acidosis and stroke-like episodes): (10) H/O: stroke with residual effects: (11) Hypertension: Plan: Patient is 68-year-old female with PMH type 1 diabetes, diabetic polyneuropathy, hyperlipidemia, chronic rhinitis, CAD s/p stent, hypertension, history of CVA, aphasia poststroke, Schatzki"s ring, Mnire's disease,MELAS, cochlear implant in place, was recently in the hospital for acute CHF and pleural effusions presented to ER after fall. Acute on Chronic combined CHF Tachycardia Elevated troponin BNP: 1097 Troponin: 138-->125 (H/O elevated troponins during prior admissions in similar range) CXR: Interval progression of the pulmonary edema with small bilateral pleural effusions EKG: appears to be sinus tachycardia In ER given 40 mg Lasix IV Previous admission patient required Lasix 40 mg IV 3 times daily so we will resume this for now Monitor I's and O's, daily weights Monitor on telemetry Patient missed oral medications today. Will dose metoprolol now Cardiology consult CBC, CMP in a.m. Patient had echo 12/2023: EF: 35-40% diffuse hypokinesis, moderate-severe mitral regurgitation Altered mental status Likely metabolic encephalopathy Elevated lactic acid In ER T: 34.3 C rectal, P: 119, BP 109/94, 96% on room air. Upon reassessment T: 35.8 C rectally with Sumit hugger on. P: 117, BP 126/83, R: 20, 96% on room air Lactate: 6.6-->4.9 CT Head: no acute intracranial abnormality UA: ?possible UTI vs contamination Urine culture pending Blood cultures pending Trend lactate Unclear if lactate elevated from MELAS, CHF or underlying infection Zosyn, vancomycin for now Monitor for delirium Fall Ambulatory dysfunction Unwitnessed fall reported today. Reported progressive difficulty with ambulation CT head no acute intracranial abnormality C-spine CT: No acute cervical fracture Fall precautions PT/OT consult Hyperglycemia DM I A1c: 8.2 on 01/09/2024 Unclear if patient has been giving herself insulin at home recently Glucose 371 in ER. VBG pH WNL Start insulin drip Closely monitor and plan to change to basal bolus insulin when able BLE wounds Possible foot cellulitis Venous and arterial Dopplers pending Zosyn, vancomycin for now MELAS (mitochondrial encephalopathy, lactic acidosis, stroke) History CVA Of note: pt has cochlear implant and has not been able to have MRI in past Continue aspirin CAD s/p stent Workup as above continue aspirin, metoprolol On Repatha DVT Prophylaxis Lovenox SQ Full Code as per discussion with pt, pt's son Follows with Dr Jose Ramirez for routine care Pt was seen and care coordinated with Dr Cruz. See addendum I spent a total of 80 minutes reviewing notes, outpatient records, labs, medication, coordinating, documenting and providing care for this patient excluding time spent in the performance of separately billed services. History of Present Illness Chief Complaint: fall Primary Care Provider: Amairani Owen MD Patient is 68-year-old female with PMH type 1 diabetes, diabetic polyneuropathy, hyperlipidemia, chronic rhinitis, CAD s/p stent, hypertension, history of CVA, aphasia poststroke, Schatzki"s ring, Mnire's disease,MELAS, cochlear implant in place, was recently in the hospital for acute CHF and pleural effusions presented to ER after fall. History obtained from patient's son, inpatient and outpatient chart review. Recent recurrent hospitalizations in December 2023 for acute on chronic heart failure. Unable to obtain history from patient as difficult to understand patient. Spoke with patient's son who states patient has had progressive decline since the previous admissions that is more confused than her baseline. Having trouble walking with her walker. At baseline patient hard of hearing and has aphasia. Son states speech has worsened and hard to understand and she is more confused. States had unwitnessed fall today. Son states he was downstairs and patient was upstairs and son heard patient talking but couldn't understand her so went upstairs and found her lying on floor. States her speech seemed to be how it was the past couple of days. Patient son states patient was was taking care of her own insulin and medications however recently have noticed patient having trouble with this. Patient previously able to assist in ADLs and not having trouble with this as well. Son reports patient eats regular diet and has not noted any choking. Son states did not take her pills today, he is unsure if she took her insulin. Son reports wound to right foot and left foot. 1-2 weeks ago thought area was getting more red so took to urgent care and was started on Keflex x 7 days. Son is unsure if area looks improved or worse. Patient's son feels swelling in legs is "about the same". He is unaware of any vomiting or diarrhea, coughing, choking episodes. States is always cold and usually is under a heated blanket. Denies noted fevers. Allergies Allergy/AdvReac Type Severity Reaction Status Date / Time atorvastatin AdvReac Intermediate myalgias, Verified 01/08/24 21:34 dysarthria prednisone AdvReac Intermediate metabolic-h Verified 01/08/24 21:34 yperglycemi a Home Medications Medication Instructions Recorded Confirmed Type vit A 12,500 unit-zinc 12.5 1 cap PO QAM 05/14/20 02/21/24 History ef-skviwl-klmpo-bilberry-herb #261 capsule (L[employer] Support) aspirin 81 mg tablet,delayed 81 mg PO QAM #90 tabs 05/17/20 02/21/24 Rx release nitroglycerin 0.4 mg sublingual 0.4 mg sublingual UD PRN chest 05/17/20 02/21/24 Rx tablet (Nitrostat) pain #30 tabs evolocumab 140 mg/mL subcutaneous 140 mg subcut .[id number] 08/10/21 02/21/24 History pen injector (Jaime Nicholson) coenzyme Q10 100 mg capsule 100 mg PO DAILY 01/14/22 02/21/24 History (CoQ-10) furosemide 40 mg tablet (Lasix) 40 mg PO DAILY #30 tabs 01/12/24 02/21/24 Rx insulin aspart U-100 100 unit/mL 3 unit (0.03 mL) subcut TIDM #15 mL 01/12/24 02/21/24 Rx (3 mL) subcutaneous pen (Novolog FlexPen U-100 Insulin aspart) insulin glargine 100 unit/mL (3 15 unit (0.15 mL) subcut HS #15 mL 01/12/24 02/21/24 Rx mL) subcutaneous pen (Lantus Solostar U-100 Insulin) metoprolol succinate 25 mg 25 mg PO BID #60 tabs 01/12/24 02/21/24 Rx tablet,extended release 24 hr Past Med/Surg History Medical History Bilateral pleural effusion Unspecified hereditary retinal dystrophy Bilateral sensorineural hearing loss Bilateral myopia 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 Degeneration of cervical intervertebral disc History of TMJ disorder Hemiplegia Diabetic polyneuropathy Aphasia as late effect of cerebrovascular accident CAD (coronary artery disease) Statin intolerance Atherosclerosis of coronary artery Macular degeneration Mnire's disease Schatzki's ring MELAS (mitochondrial encephalopathy, lactic acidosis and stroke-like episodes) HLD (hyperlipidemia) Type 1 diabetes mellitus Hypertension Surgical History S/P coronary artery stent placement History of heart artery stent History of cochlear implant Left in 2014 History of left heart catheterization 07/2019 which revealed 30% proximal LAD otherwise clean coronaries History of colonoscopy with polypectomy History of cholecystectomy History of hysterectomy Family History Mother Coronary heart disease, Onset Age: 70 Father Coronary heart disease, Onset Age: 50 Daughter MELAS (mitochondrial encephalopathy, lactic acidosis and stroke-like episodes) Social History Smoking Status: Unknown if ever smoked Tobacco Type: Cigarettes Second Hand Exposure: No; Do You Dip or Chew Tobacco: No; Hx Alcohol Use: No Hx Substance Use: No Preferred Language: Maltese Communication Ability: Impaired Communication Ability Comment: Cochlear implant, communication difficult at times Hearing Ability: Cochlear Implant Statistical Methods Professor Required: No Beliefs That Will Affect Care: None marital status: Current Living Situation: Family Current Living Situation Comment: with son Lee current occupational status: retired and disabled How many Children do You have: 2 Feels Safe at Home: Yes Assistive Devices: Cane, Glasses and Other Review of Systems Review of Systems: Unobtainable due to cognitive status Physical Exam Physical Exam: PE per Dr Cruz Results & Data Results & Data Vital Signs (Past 12 Hours) Vital Signs Temp Pulse Pulse Resp BP BP Pulse Ox 02/21/24 17:11 34.5 C L 119 H 20 127/71 97 02/21/24 16:28 119 H 02/21/24 15:35 96 02/21/24 15:34 34.3 C L 02/21/24 15:27 79 22 124/89 96 02/21/24 15:24 95 02/21/24 15:01 117 H 18 109/94 96 O2 Del Method 02/21/24 17:11 Room Air 02/21/24 16:28 02/21/24 15:35 Room Air 02/21/24 15:34 02/21/24 15:27 Room Air 02/21/24 15:24 Room Air 02/21/24 15:01 Room Air Laboratory Results Short CBC 02/21/24 Range/Units 15:16 WBC 9.94 (4.8-10.8) K/ul Hgb 14.4 (12.0-16.0) g/dl Hct 44.0 (37.0-47.0) % Plt Count 192 (130-400) K/uL BMP 02/21/24 15:16 Sodium 132 L Potassium 3.8 Chloride 89 L Carbon Dioxide 24 BUN 68 H Creatinine 1.07 Glucose 371 H* Calcium 9.4 Cardiac Enzymes 02/21/24 Range/Units 15:16 Total Creatine Kinase 461 H (26-192) U/L Liver Function 02/21/24 Range/Units 15:16 Total Bilirubin 2.1 H (0.2-1.0) mg/dl AST 79 H (13-39) U/L ALT 60 H (7-52) U/L Alkaline Phosphatase 87 (34-104) U/L Albumin 3.7 (3.4-5.0) gm/dl Urine 02/21/24 Range/Units 17:10 Urine Color Dark Yellow Urine Appearance Clear (Clear) Urine pH 5.0 (4.5-7.5) Ur Specific [place] 1.024 (1.000-1.030) Urine Protein 2+ H (Negative) Urine Glucose (UA) 3+ H (Negative) Diagnostic Findings Chest X-Ray 02/21/24 15:30 XR chest 1V portable HISTORY: weakness COMPARISON: Chest 01/12/2024. FINDINGS: No pneumothorax. The heart remains enlarged. There are small bilateral pleural effusions with progressive perihilar interstitial/vascular thickening consistent with pulmonary edema. Left basilar linear densities favor subsegment al atelectasis. There are calcifications within the aortic knob. No acute fractures. IMPRESSION: Interval progression of the pulmonary edema with small bilateral pleural effusions. ACT 112: Negative or not required by law. Electronically signed by: Caleb Pace M.D. 02/21/2024 4:[address] 02/21/24 15:[address] DOSE: HISTORY: Neck pain. fall TECHNIQUE: Multiaxial CT images of the cervical spine were performed and reformatted in the sagittal and coronal plane without the use of contrast. A dose lowering technique was utilized adhering to the principles of ALARA. COMPARISON: None. FINDINGS: No fractures. No subluxation. Prevertebral soft tissues and the C1-C2 interval are intact. No pneumothorax. Posterior fusion defect at C1. Left cochlear implant with a few opacified left mastoid air cells. Interlobular septal thickening at the lung apices consistent with pulmonary edema. There are bilateral pleural effusions. Moderate facet degenerative changes within the cervical spine. Severe disc space narrowing at C6-C7 with endplate osteophytes. IMPRESSION: 1. No fractures within the cervical spine. 2. Pulmonary edema and bilateral pleural effusions. ACT 112: Negative or not required by law. Electronically signed by: Caleb Pace M.D. 02/21/2024 4:[address] 02/21/24 15:31 CT SCAN OF THE BRAIN WITHOUT IV CONTRAST CLINICAL HISTORY: Change in mental status. COMPARISON STUDY: CT of the brain dated 07/23/2022. TECHNIQUE: Unenhanced axial CT scan of the brain is performed from the vertex to the skull base. A dose lowering technique was utilized adhering to the principles of ALARA. There is streak artifact from electronic device along the left posterior convexity. There is also mild motion artifact. CT DOSE: 1075.27 mGy.cm FINDINGS: Brain parenchyma: There is age-advanced involutional change noting moderate confluent subcortical and periventricular microangiopathic disease. There is no hemorrhage, mass effect, or evidence of acute territorial ischemia by CT criteria. Mineralization is noted in the basal ganglia. A focus of left temporal encephalomalacia is consistent with a remote insult. Alcantara-white matter differentiation is preserved. No extra-axial fluid collection is seen. Ventricles, sulci, cisterns: Prominent secondary to involutional change. Intracranial vasculature: There is atherosclerotic calcification of the cavernous carotid and vertebral artery. Calvarium: Unremarkable. Sinuses and mastoids: The visualized paranasal sinuses are clear. There is postoperative change seen in left mastoid air cells with a left mastoid effusion. The right mastoid air cells are well pneumatized. Orbits: The bony orbits are grossly intact. IMPRESSION: There is no hemorrhage, mass effect, or evidence of acute territorial ischemia by CT criteria. ACT 112: Negative or not required by law. Electronically signed by: Wilbert Lee M.D. 02/21/2024 4:41 PM Code Status & VTE Plan VTE Prophylaxis Plan VTE Prophylaxis will be ordered: Yes Supervising Physician Co-Signing Physician Notes I have seen and discussed the case with the collaborating advanced practitioner. I agree with the above H&P. I have reviewed and confirmed the patients medical history, the findings on physical examination, and the patients diagnosis and treatment plan with Leonides CARD and agree with the information documented. Ms. Chavez is a 68-year-old female with past med history significant for type 1 diabetes, diabetic polyneuropathy, hyperlipidemia, chronic rhinitis, CAD s/p stent, hypertension, history of CVA, aphasia poststroke, Schatzki"s ring, Mnire's disease,MELAS, cochlear implant in place, was recently in the hospital for acute CHF in 12/2023 awho is being admitted for acute on chronic encephalopathy as well as concern for acute on chronic heart failure exacerbation. Patient discharged to home. Son no longer at bedside while evaluating patient. Patient cried in pain when touching bilateral feet. Patient rolling head in pain, with near flaccid forward flexion. Labs consistent with volume overload. GENERAL APPEARANCE: AxOx1, distressed, encephalopathic woman HEENT: NC, AT. MMM. EOMI, clear conjunctiva, oropharynx clear. NECK: JVD++ HEART: Normal rate and regular rhythm, difficult to appreciate ,JOSE LUNGS: +Crackles in biabasilar areas ABDOMEN: Soft, nontender, nondistended with good bowel sounds heard. BACK: No CVAT, no obvious deformity. EXTREMITIES: bilateral pedal edema NEUROLOGICAL: Grossly nonfocal. however alert but not following commands Skin: bilateral aashish discoloration of lower extremity forefeet unable to palpate pulse 2/2 pain/edema, large laceration from right second digit extending to 5th digit of RLE---no bleeding, no clear superimposed infection/drainage, left LE with wounds as well #Acute Encephalopathy, likely metabolic #Elevated Lactatic Acid #MELAS (mitochondrial encephalopathy, lactic acidosis, stroke like episodes) -history of strokes with residual aphasia -Continue ASA -CT head WNL -Lactate elevated, ? iso HF v infection v MELAS Trend lactate Infectious work up Delirium precautions #Acute on chronic heart failure with reduced EF #Ischemic cardiomyopathy s/p stents #Sinus Tachycardia -Last ECHO 12/2023 with EF 35% BNP >1097, though historically higher on prior admissions Continue Metoprolol BID LASIX TID Cards consult #BLE wounds -c/f PAD, will order duplex of LE -Plan for dedicated imaging when able to lay flat ESR CRP in am Infectious work up and empiric coverage as above #Hyperglycemia #DMTI -Plan for insulin drip given hyperglycemia, glycemic consult, titrate as able I spent a total of 35 minutes coordinating, documenting, and providing care for this patient excluding time spent in the performance of separately billed services. All of the aforementioned completed outside of collaborating with the assigned advanced practitioner for a full treatment plan. I have reviewed the advanced practitioner's documentation, and I agree with, and take responsibility for the plan of care
[2024-02-21] MEDS: POTASSIUM CHLORIDE / WTR 10 MEQ/100 ML PLCT IV ONE (19:50)
[2024-02-21] MEDS: VANCOMYCIN HCL 1,250 MG in SODIUM CHLORIDE 0.9% 250 ML IV ONE (19:50)
[2024-02-21] MEDS: METOPROLOL SUCC 25MG EXT REL TAB PO ONE (20:12)
[2024-02-21 20:16] LABS: Base Excess VBG -6.6 mEq/L; HCO3 VBG 17 mmol/L; Oxygen Saturation VBG 89.6 %; PCO2 VBG 29 mmHg (38-50); PO2 VBG 60 mmHg; pH VBG 7.38 (7.36-7.41)
--- NOTE | 2024-02-21 20:54 | Pharmacy Report ---
Pharmacy PK ABX Note - Date of Service February 21, 2024 - Assessment and Plan Assessment 68 year old F started on vancomycin empirically - Patient admitted with AMS, tachycardia, s/p fall, hyperglycemia, BLE wounds. Recent hospitalization noted. Cultures pending. Plan Vancomycin * Loading dose: 1250 mg IV x 1 * Maintenance dose: 1000 mg IV every 24 hours * Regimen is predicted to achieve target AUC/JANE of 400-600 mg/L.hr * Plan to collect vancomycin level if continued > 48 hours Pharmacy will continue to follow and will adjust dose/frequency as necessary. Thank you. Pharmacy has transitioned to AUC monitoring for vancomycin. AUC/JANE is the pref erred PK/PD target and is associated with decreased risk of nephrotoxicity compared to traditional trough targets.
[2024-02-21] MEDS ORDERED: POLYETHYLENE (MIRALAX) 17 GM PACK PO PRN (20:59)
[2024-02-21] MEDS ORDERED: VANCOMYCIN HCL 1,000 MG in SODIUM CHLORIDE 0.9% 500 ML IV SCH (20:59)
[2024-02-21] MEDS ORDERED: ACETAMINOPHEN 325 MG TAB PO PRN (20:59)
[2024-02-21] MEDS ORDERED: INSULIN PROTOCOL GOAL RANGE ONE (20:59)
[2024-02-21] MEDS ORDERED: STAT IV Infusion **Titration per Protocol STA (20:59)
[2024-02-21] MEDS: NovoLIN-R BOLUS FROM BAG IV ONE (23:05)
[2024-02-21] MEDS: INSULIN ASPART PER UNIT CHARGE SC SCH (23:05)
[2024-02-21] MEDS: INSULIN REGULAR 250 UNITS in SODIUM CHLORIDE 0.9% 247.5 ML IV SCH (23:05)
[2024-02-21] MEDS: MODERATE STRESS LEVEL ONE (23:09)
[2024-02-21] MEDS: FUROSEMIDE 40 MG/4 ML VIAL IV SCH (23:11)
[2024-02-21] MEDS: ENOXAPARIN INJ 40 MG/0.4 ML SYR SQ SCH (23:11)
[2024-02-21] MEDS: PIPER/TAZO 4.5g in D5W MINI-B 100 ML IV ONE (23:12)
[2024-02-21 23:58] LABS: BUN Creatinine Ratio 62.4 (10-20); Calcium 8.9 mg/dl (8.6-10.3); Creatinine Clr Calc Pharmacy 41.1 ml/min; Est GFR (African American) 60.8 ml/min; Est GFR (Non-African American) 52.5 ml/min; Potassium 3.7 mmol/L (3.5-5.1)
--- NOTE | 2024-02-22 00:03 | Ultrasound Report ---
Exam(s): US VENOUS BILATERAL LOWER EXTREMITIES EXAM: US Duplex Bilateral Lower Extremities Veins CLINICAL HISTORY: Reason for exam: r/o dvt. TECHNIQUE: Real-time duplex ultrasound scan of the bilateral lower extremity veins integrating B-mode two-dimensional vascular structure, Doppler spectral analysis, color flow Doppler imaging and compression. COMPARISON: No relevant prior studies available. FINDINGS: Right deep veins: There is isoechoic thrombus within nondilated the peroneal veins and posterior tibial vein. Thrombus in the right posterior tibial vein is occlusive and could be acute. The remaining deep venous structures are patent and compressible. Right superficial veins: Unremarkable. No thrombus in the visualized right great saphenous vein. Left deep veins: See above. Left superficial veins: Unremarkable. No thrombus in the visualized left great saphenous vein. Soft tissues: No acute findings. No popliteal cyst. IMPRESSION: 1. Thrombus in the right posterior tibial vein is occlusive and could be acute. The remaining both lower extremity venous structures are patent and compressible. 2. There is isoechoic thrombus within nondilated the peroneal veins and posterior tibial vein. Communications: Call Doctor DVT acute, progressing Electronically signed by: Stevie Doty MD 02/22/24 00:02 AM
--- NOTE | 2024-02-22 00:13 | Ultrasound Report ---
Exam(s): US ARTERIAL BILATERAL LOWER EXTREMITIES EXAM: US Duplex Bilateral Lower Extremities Arteries CLINICAL HISTORY: Reason for exam: r/o obstruction. TECHNIQUE: Real-time duplex ultrasound scan of the bilateral lower extremity arteries integrating B-mode two-dimensional vascular structure, Doppler spectral analysis and color flow Doppler imaging. COMPARISON: No relevant prior studies available. FINDINGS: Right common femoral artery: No acute findings. No occlusion or significant stenosis on color flow and spectral Doppler imaging. Normal waveform. Right superficial femoral artery: No acute findings. No occlusion or significant stenosis on color flow and spectral Doppler imaging. Normal waveform. Right popliteal artery: No acute findings. No occlusion or significant stenosis on color flow and spectral Doppler imaging. Normal waveform. Right calf/foot arteries: No acute findings. No occlusion or significant stenosis on color flow and spectral Doppler imaging. Normal waveform. Left common femoral artery: No acute findings. No occlusion or significant stenosis on color flow and spectral Doppler imaging. Normal waveform. Left superficial femoral artery: No acute findings. No occlusion or significant stenosis on color flow and spectral Doppler imaging. Normal waveform. Left popliteal artery: No acute findings. No occlusion or significant stenosis on color flow and spectral Doppler imaging. Normal waveform. Left calf/foot arteries: No acute findings. No occlusion or significant stenosis on color flow and spectral Doppler imaging. Normal waveform. Soft tissues: Unremarkable. IMPRESSION: Negative bilateral lower extremity duplex arterial ultrasound. No evidence of arterial insufficiency. No focal stenosis identified. Electronically signed by: Stevie Doty MD 02/22/24 00:12 AM
[2024-02-22] MEDS: HEPARIN SODIUM/DEXTROSE 25,000 UNITS/500 ML BAG IV SCH (01:08)
[2024-02-22 01:12] LABS: Hematocrit (blood only) 41.5 % (37.0-47.0); Hemoglobin 13.6 g/dl (12.0-16.0); Mean Corpuscular Hemoglobin 25.5 pg (25.0-34.0); Mean Corpuscular Hgb Conc 32.8 g/dL (32.0-36.0); Mean Corpuscular Volume 77.7 fL (80.0-100.0); Mean Platelet Volume 11.2 fL (9.4-12.4); Platelet Count 179 K/uL (130-400); RDW Coefficient of Variation 17.2 % (11.5-14.5); RDW Standard Deviation 44.1 fL (36.4-46.3); Red Blood Count 5.34 M/uL (4.20-5.40); White Blood Count 9.37 K/ul (4.8-10.8)
[2024-02-22] MEDS: Heparin IV Adult Wt-Based Standard *NO* INITIAL Bolus Protocol IV STA (01:36)
[2024-02-22 01:45] LABS: Basophils # (auto) 0.01 K/uL (0.00-0.20); Basophils % (auto) 0.1 %; Eosinophils # (auto) 0.01 K/uL (0.00-0.50); Eosinophils % (auto) 0.1 %; Immature Granulocytes # (auto) 0.02 K/uL (0.01-0.20); Immature Granulocytes % (auto) 0.2 %; Lymphocytes # (auto) 0.45 K/uL (1.20-3.40); Lymphocytes % (auto) 4.8 %; Monocytes # (auto) 0.42 K/uL (0.11-0.59); Monocytes % (auto) 4.5 %; Neutrophils # (auto) 8.46 K/uL (1.40-6.50); Neutrophils % (auto) 90.3 %
[2024-02-22 01:56] LABS: INR 1.6 (0.9-1.1); Partial Thromboplastin Ratio 1.1; Partial Thromboplastin Time 32 Seconds (21-31); Prothrombin Time 17.3 Seconds (9.0-12.0)
[2024-02-22] MEDS: PIPERACILLIN/TAZOBACTAM 4.5 GM in DEXTROSE 5% MINI-B 100 ML IV SCH (04:16)
--- OUTSIDE RECORDS SUMMARY | 2024-02-22 05:25 | External Medical Summary | Summary of Care ---
Author Name Unknown Organization [facility] Address [address] [place] [address] Phone [phone] Care Team Providers Care Flying Instructor Name Role Phone Amairani Boyd MD Primary Care Prov ider Reason for Visit * Reason Onset Date Comments Hospital Follow-Up Hospital Follow-Up 02/04/2024 Encounter Details Date Type Department Care Team (Latest Contact Info) Description 02/04/2024 2:20 PM EDT Office Visit Family Medicine [address] [place] [phone] Mili Ocampo MD [address] [place] [address] [place] [phone] Hospital discharge follow-up*; Chronic systolic heart failure (HCC); Pleural effusion; Type 1 diabetes mellitus with diabetic polyneuropathy (HCC); Hemiplegia and hemiparesis following cerebral infarction affecting left non-dominant side (HCC); Atherosclerotic heart disease of [place] coronary artery with other forms of angina pectoris (HCC); Dyslipidemia, goal LDL below 70; S/P coronary artery stent placement; Aphasia, post-stroke; Type 1 diabetes mellitus with hemoglobin A1c goal of 7.0%-8.0% ([facility]) Allergies Active Allergy Reactions Criticality Noted Date Comments Atorvastatin Other (Please comment) 05/17/2014 Myalgias, dysarthria Prednisone Other (Please comment) 04/13/2013 Metabolic-hyperglycemia documented as of this encounter (statuses as of 02/04/2024) Medications Medication Sig Dispensed Refills Start Date End Date Status Insulin Syringe-Needle U-100 30G X 1/2" 0.3 ML MISC Use up to 4 times a day with insulin 1 Box Dosing Unit 11 02/28/2017 Active ASPIRIN LOW DOSE 81 MG TBEC Take 1 Tablet by mouth in the morning. In the morning.. 0 05/17/2020 Active Lipotriad Vision Support Oral Capsule Take 1 Capsule by mouth in the morning. 0 Active Co Q-10 200 MG Oral [...] ER 25 Tablet 11 02/25/2023 4 Active Glucose Blood In Vitro StripIndications:T ype 1 diabetes mellitus with hemoglobin A1c goal of 7.0%-8.0% ([facility]) USE TO TEST BLOOD SUGAR 4 TIMES DAILY 600 Strip 2 06/11/2023 Active BD Pen Needle Mini U/F 31G X 5 MM (Insulin Pen Needle)Indications :Type 1 diabetes mellitus with hemoglobin A1c goal of 7.0%-8.0% ([facility]) Use 4 times a day with insulin pens. DX e10.9 400 Each 0 09/18/2023 Active Insulin Glargine 100 UNIT/ML Subcutaneous Solution (Lantus) Inject 15 Units under the skin at bedtime. 0 01/12/2024 Active Metoprolol Succinate ER 25 MG Oral Tablet Extended Release 24 Hour (toPROL XL) Take 1 Tablet by mouth in the morning and 1 Tablet before bedtime. 0 01/12/2024 Active Furosemide 40 MG Oral Tablet (Lasix) Take 1 Tablet by mouth in the morning. 0 01/12/2024 Active NovoLOG FlexPen 100 UNIT/ML Subcutaneous Solution Pen-injectorIndica tions:Type 1 diabetes mellitus with hemoglobin A1c goal of 7.0%-8.0% (HCC) Inject 3 Units under the skin in the morning and 3 Units at noon and 3 Units in the evening. Inject with meals. Three times a day with meals.. 0 02/04/2024 Active NovoLOG FlexPen 100 UNIT/ML Subcutaneous Solution Pen-injectorIndica tions:Type 1 diabetes mellitus with hemoglobin A1c goal of 7.0%-8.0% (HCC) INJECT 6 UNITS UNDER THE SKIN PRIOR TO MEALS 30 mL 0 09/18/2023 Discontinued documented as of this encounter (statuses as of 02/04/2024) Active Problems Problem Noted Date Diagnosed Date Hemiplegia and hemiparesis f ollowing cerebral infarction affecting left non-dominant side 02/04/2024 Type 1 diabetes mellitus with diabetic polyneuro solange 02/04/2024 Atherosclerotic heart diseas e of [place] coronary artery with other forms of angina pectoris 02/04/2024 Chronic systolic heart failure 02/04/[address] 09/06/2022 Aphasia, post-stroke 03/23/2022 Hemiplegia, post-stroke 03/23/2022 Receptive aphasia 02/15/2022 History of IA (myocardial infarction) 12/15/2020 S/P coronary artery stent [...] Lipid Taxonomy. Coronary artery disease invo lving [place] coronary artery of [place] heart without angina pectoris 08/11/2009 Chronic otitis externa 06/02/2008 ADVANCE DIRECTIVE INFORMATION 04/22/2007 Overview: No, Advance Directive brochure given to patient at prior appointment. Meniere's disease of both ears Sensorineural hearing loss, bilateral Temporomandibular joint disorders, unspecified Degeneration of cervical intervertebral disc Schatzki's ring documented as of this encounter (statuses as of 02/04/2024) Resolved Problems Problem Noted Date Diagnosed Date [...] for Patients with Cardiovascular Disease Project # [id number] PI: Selina Robert MD Please call [phone] with study related questions GENOMICS CARDIO RESEARCH OTHER*[id number] 08/15/2009 01/01/2017 Overview: Renamed Per Clinical Trials Billing Project. Study Titile: Genomics Markers for Patients with Cardiovascular Disease Project # [id number] PI: Selina Robert MD Please call [phone] with study related questions Abnormal electrocardiogram 07/20/2009 [...] as of this encounter (statuses as of 02/04/2024) Immunizations Name Administration Dates Next Due DTaP Dipth/Tet/Acell Pertussis (Infanrix), Peds 08/16/2021 Hepatitis B, 20+ yrs 12/14/2014,07/06/2014,05/17 Pneumococcal Conjugate Vacc, 13 Valent (Prevnar) 08/16/2017 Pneumococcal Conjugate Vacci ne, 20-valent ([id number]) 10/30/2022 Pneumococcal Polysaccharide PPV23 (Pneumovax) 07/17/2006 Seasonal [...] you got the money to buy more. Never true 01/22/20 24 Within the past 12 months, t he food you bought just didn't last and you didn't have money to get more. Never true 01/22/2024 Sex and Gender Information Value Date Recorded Sex Assigned at Female 03/01/2023 2:31 PM EDT Gender Identity Not on file Sexual Orientation Straight 03/01/2023 2: 31 PM EDT Job Start Date Occupation Industry Not on file Not on file Not on file documented as of this encounter Last Filed Vital Signs Vital Sign Reading Time Taken Comments Blood Pressure 145/80 02/04/2024 2:26 PM EDT Pulse 130 02/04/2024 2:26 PM EDT Temperature 36.1 C (97 F) 02/04/2024 2:26 PM EDT Respiratory Rate - - Oxygen Saturation 98% 02/04/2024 2:26 PM EDT Inhaled Oxygen Concentration - - Weight 55.8 kg (123 lb) 02/04/2024 2:26 PM EDT Height 157.5 cm (5' 2") 02/04/2024 2:26 PM EDT Body Mass Index 22.5 02/04/2024 2:26 PM EDT documented in this encounter Patient Instructions * Patient Instructions* Mili Ocampo MD - 02/04/2024 2:31 PM EDT Taking Medicine Safely Medicine is given to help treat or prevent illness. But if you don't take it correctly, it might not help. It might even harm you. Your doctor or pharmacist can help you learn the right way to take your medicine. Listed below are some tips to help you take medicine safely. Safety Tips Have a routine for taking each medicine. Make it part of something you do each day, such as brushing your teeth or eating a meal. When you go to the hospital or your doctor's office, bring all your current medicines in their original boxes or bottles. If you can't do that, bring an up-to-date list of your medicines. Do not stop taking a prescription medicine unless your doctor tells you to. Doing so could make your condition worse. Do not share medicines. Let your doctor and pharmacist know of any allergies you have. Taking prescription medicines with alcohol, street drugs, herbs, supplements, or even some lkov-cmb-cgqrvgj medicines can be harmful. Talk to your doctor or pharmacist before using any of these things while taking a prescription medicine. When filling your prescriptions, try using the same pharmacy for all your medicines. If not, let the pharmacist know what medicines you are already on. Keep medicines out of the reach of children and pets. Do not use medicine that has or that doesn't look or smell right. Get rid of it properly. To find out the right way to get rid of medicine: Call your [facility] or [facility]'s [employer] trash and recycling service and ask if a drug take-back program is available in your community. Call your local pharmacy and ask the right way to get rid of the medicine. Go to http://www.fda.gov/ForConsumers/ConsumerUpdates/vkd668323 to learn how to get rid of medicines safely. Using Generic Medicines Medicines have brand names and generic (chemical) names. When a medicine is first made, it is sold only under its brand name. Later, it can be made and sold as a generic. Generic medicines cost less than brand-name medicines and most work just as well. Most people can use the generic medicine instead of the brand-name medicine, unless their doctor says otherwise. [id number] [facility], [address] [place] [address], [place] [address]. All rights reserved. This information is not intended as a substitute for professional medical care. Always follow your healthcare professional's instructions. Coping with Your Diagnosis of a Chronic Health Condition If you have a chronic health condition, you have a problem that may not go away over time. Heart disease, asthma, arthritis, and diabetes are just a few of the chronic conditions that exist. Right now, these conditions have no known cure. But you can take an active role in managing your health. Coping with Your Diagnosis If you've just learned about your health condition, you may be angry, depressed, or afraid. Or you might feel relieved just to know what's wrong. Even if you've known about your health problem for a while, adjusting to it can be hard. But learning about your condition can help you cope. Look for books at your local library. If you have access to a computer, check the Internet. Or contact a group that focuses on your specific problem. Accepting Change Change is hard for most people. Yet right now you may be facing many changes. What you eat or the way you work may change. Your moods, and even your symptoms, might vary from day to day. Although it isn't easy, learning to accept change can help you feel more in control. Taking Control Feeling you have control can make living with your condition easier. Discuss treatment options withyour health care provider. The more you know, the more active you can be in your care. Moving Forward You may wonder whether you will be able to do the things you've always done. That depends on your age, the condition you have, and your goals. To make the most of each day, try to build caring relationships, be active, and eat right. Also, do your best to keep a sense of humor. Amrik Palac[address] [address]. All rights reserved. This information is not intended as a substitute for professional medical care. Always follow your healthcare professional's instructions. Taking an Active Role in Your Medicines Take the time to learn about your medicine. For instance, why are you taking it? What does it do? Work with your doctor or other health care providers to get the answers you need. Talk to your pharmacist about how to take each medicine, and ask for a fact sheet on each one. Ask Questions About Your Medicine What is the name of the medicine? Why do I need to take it? When should I take it? How should I take it: with water? with food? on an empty stomach? How much do I take? What do I do if I miss a dose? What side effects could it cause and which ones should I call the doctor about? Are there any foods or medicines I should avoid while taking this medicine? Keeping track of your medications? Name of medicine: Taken for: Dose: Time(s) to take it: Take an Active Role Fill all your prescriptions at the same pharmacy. This keeps your medicine history in one place. Talk to the pharmacist. Make sure you understand how to take each medicine. Ask for a fact sheet about each one. Tell your doctor and pharmacist about all the prescription and rpbc-ocq-ctwbuyo medicines you take.This includes vitamins and herbal remedies. Tell your doctor and pharmacist if you have any medical conditions or allergies to any medicine or food, or if you are or . Keep a list of all your medicines. Use the sample to the right as a guide for the type of information needed. Amrik Palac[address] [address]. All rights reserved. This information is not intended as a substitute for professional medical care. Always follow your healthcare professional's instructions. documented in this encounter Progress Notes * Mili Ocampo MD - 02/04/2024 2:31 PM EDT SUBJECTIVE: Shanda Chavez is a 68 year old female. Chief Complaint Patient presents with Hospital Follow-Up Hospital Follow-Up Recent Admission: Patient was recently admitted to [facility] 01/08/24. The date of discharge was 01/12/24. Discharge report received and reviewed. HPI: Brief Clinical History Ms. Chavez is a 68 year old woman last seen in Family Medicine 6 months ago (07-23-23). She is not due for eval of any conditions. Patient is here with her wolana-mt-yiv. Has complicated PMH including h/o CV with left hemiparesis,aphasia, MELAS, dyslipidemia, cochlear implant, and type 1 diabetes here for hospital follow-up. Admitted to [facility] 01/08/24-01/12/24 with acut exacerbation of systolic CHF and pleural effusions. CXR showed pulmonary edema and small bilateral pleural effusions. Echo done at prior admission showed EFof 35-40% and moderate to severe mitral regurgitation. She was diuresed with IV Lasix 40 mg three times daily and seen by cardiology. Follow-up chest x-ray showed significant improvement. Her amlodipine was discontinued. Her metoprolol succinate was increased to 25 mg twice daily and furosemide to 40 mg daily. Her lantus was changed to 15 units at night and 3 units with meals. Patient is disabled with hemiplegia and aphasia. She continues to refuse home health, [facility], or any assistance from her family to doroteo her pill minders. She states she did not take any medications today because she is too tired. Her legs are less swollen per uibenq-bt-niw. Has some soreson her feet that also look better per SOL. Tfwzlj-lf-blo reports she thinks she threw one of her medications away but not sure which one. She is not sure she has taken anything since discharge from the hospital. Saw cardiology for follow-up 01/27/24. Was referred back to neurology as she was lost to follow-up. Has not heard about an appointment yet. Patient states she did not take her medications and then states she took them. She is fixated on getting fruit at [facility] after her appointment. States she cannot breathe when she walks far. Patient Active Problem List Diagnosis Code Meniere's disease of both ears H81.03 ADVANCE DIRECTIVE INFORMATION Sensorineural hearing loss, bilateral H90.3 Temporomandibular joint disorders, unspecified M26.609 Degeneration of cervical intervertebral disc M50.30 Chronic otitis externa H60.60 Coronary artery disease involving [place] coronary artery of [place] heart without angina pectoris I25.10 Dyslipidemia, goal LDL below 70 E78.5 History of tobacco use Z87.891 Chronic rhinitis J31.0 Type 1 diabetes mellitus with hemoglobin A1c goal of 7.0%-8.0% ([facility]) E10.9 Snoring R06.83 Slurred speech R47.81 Schatzki's ring K22.2 HTN, goal below 140/90 I10 Statins contraindicated Z53.09 Diabetic polyneuropathy associated with type 1 diabetes mellitus ([facility]) E10.42 History of colon polyps Z86.010 History of transient ischemic attack Z86.73 S/P coronary artery stent placement Z95.5 History of IA (myocardial infarction) I25.2 Receptive aphasia R47.01 Aphasia, post-stroke I69.320 Hemiplegia, post-stroke ([facility]) I69.[address] Z96.21 Hemiplegia and hemiparesis following cerebral infarction affecting left non- dominant side ([facility]) I69.354 Type 1 diabetes mellitus with diabetic polyneuropathy ([facility]) E10.42 Atherosclerotic heart disease of [place] coronary artery with other forms of angina pectoris ([facility]) I25.118 Chronic systolic heart failure ([facility]) I50.22 Current Outpatient Medications Medication Sig Dispense Refill NovoLOG FlexPen 100 UNIT/ML Subcutaneous Solution Pen-injector Inject 3 Units under the skin in themorning and 3 Units at noon and 3 Units in the evening. Inject with meals. Three times a day with meals.. Insulin Syringe-Needle U-100 30G X 1/2" 0.3 ML MISC Use up to 4 times a day with insulin 1 Box Dosing Unit 11 ASPIRIN LOW DOSE 81 MG TBEC Take 1 Tablet by mouth in the morning. In the morning.. Lipotriad Vision Support Oral Capsule Take 1 Capsule by mouth in the morning. Co Q-10 200 MG Oral Capsule Take by mouth . Excedrin Migraine 250-250-65 MG Oral Tablet (Crcdewj-Zbfkzrutordjw-Juznkxga) Take 1 Tablet by mouthevery 6 hours as needed. Evolocumab 140 MG/ML Subcutaneous Solution Auto-injector ([employer]) Inject 140 mg under the skin every 14 days. 6 mL 3 Nitroglycerin 0.4 MG Sublingual Tablet Sublingual (Nitrostat) PLACE 1 TABLET UNDER THE TONGUE EVERY5 MINUTES UP TO 3 DOSES NEEDED FOR CHEST PAIN. IF NO RELIEF CALL 911 OR GO TO ER 25 Tablet 11 Glucose Blood In Vitro Strip USE TO TEST BLOOD SUGAR 4 TIMES DAILY 600 Strip 2 BD Pen Needle Mini U/F 31G X 5 MM (Insulin Pen Needle) Use 4 times a day with insulin pens. DX e10.9 400 Each 0 Insulin Glargine 100 UNIT/ML Subcutaneous Solution (Lantus) Inject 15 Units under the skin at bedtime. Metoprolol Succinate ER 25 MG Oral Tablet Extended Release 24 Hour (toPROL XL) Take 1 Tablet by mouth in the morning and 1 Tablet before bedtime. Furosemide 40 MG Oral Tablet (Lasix) Take 1 Tablet by mouth in the morning. (Patient not taking: Reported on 01/27/2024) No current facility-administered medications for this visit. Current and discharge medications have been reconciled. Review of patient's allergies indicates: Allergen Reactions Atorvastatin Other (Please comment) Myalgias, dysarthria Prednisone Other (Please comment) Metabolic-hyperglycemia OBJECTIVE: BP 145/80 | Pulse 130 | Temp 36.1 C (97 F) (Tympanic) | Ht 1.575 m (5' 2") | Wt 55.8 kg (123 lb) | LMP 12/02/2000 | SpO2 98% | BMI 22.50 kg/m | BSA 1.56 m Review Of Systems: Skin: pt denies, new or changing moles, pigmentation change, rash, scaling, itching, bruising, lumps or bumps, nail changes Eyes: negative Ears/Nose/Throat: +cochlear implant Respiratory: +as per HPI Cardiovascular: +as per HPI Gastrointestinal: pt. denies:, abdominal pain, bloating or excess gas, dysphagia, nausea, heartburn, blood in stool or black stools, constipation or change in bowel habits, diarrhea Genitourinary: pt denies:, nocturia, dysuria, and frequency Musculoskeletal: pt denies significant joint pain or stiffness Neurologic: +stroke, aphasia, and hemiplegia Psychiatric: poor sleep last night Endocrine: +type 1 diabetes mellitus PHYSICAL EXAM: General: alert, no distress, well nourished, well developed, and frequent head bobbing motions whenspeaking Head: Normocephalic, No masses, lesions, tenderness or abnormalities. +cochlear implant Eye Exam: PERRLA, extraocular movements intact, conjunctiva are pink and non- injected, sclera clear Oropharynx: no exudate, no erythema, lips, buccal mucosa, and tongue normal, and mucous membranes are moist Neck: supple, no adenopathy, no bruits Heart: no murmur, no gallops, and +mild tachycardia Lungs: chest symmetric with normal AP diameter, no chest deformities noted, no chest wall tenderness, lungs clear to auscultation, decreased breath sounds Extremities: 2+ edema bilaterally with excoriations scattered on legs. Scabbed lesions on bilateraldistal feet on dorsal aspect without drainage or erythema Neuro Exam: +alert and somewhat confused. Difficult to direct and only answers some questions and then starts talking about unrelated subjects, such as fruit or getting dressed. +aphasia and left hemiplegia ASSESSMENT: Hospital discharge follow-up (Primary) - DISCH MED RECON CUR MED LIS Chronic systolic heart failure (HCC) Pleural effusion Type 1 diabetes mellitus with diabetic polyneuropathy (HCC) Hemiplegia and hemiparesis following cerebral infarction affecting left non- dominant side (HCC) Atherosclerotic heart disease of [place] coronary artery with other forms of angina pectoris (HCC) Dyslipidemia, goal LDL below 70 S/P coronary artery stent placement Aphasia, post-stroke Type 1 diabetes mellitus with hemoglobin A1c goal of 7.0%-8.0% (HCC) Check-out note: Needs to establish with new PCP PLAN: Continue present medication(s): Patient education: Discussed at length importance of taking her medications as prescribed, especially the furosemide 40 mg daily and metoprolol succinate 25 mg twice daily. Did not take them today and unable to get an answer as to when she last took them. Ehtrpq-lc-slg is going to attempt to go through her medications when she gets home and fill a pill minder. Will contact office for any missing R x's. Recommend returning to ED with any worsening of shortness of breath, especially if she continues to not take her furosemide. Follow up as scheduled with cardiology 03/05/24. Is considering switching to a new PCP. I spent a total of 30-39 minutes (exact time 38 mins) minutes on the date of service in preparation, delivery, and documentation of the care provided to Shanda Chavez excluding any time spent in performance of separately billed services. Mili Ocampo MD documented in this encounter Nursing Notes * Paradise Paul LPN - 02/04/2024 2:25 PM EDT Sister in law states pt does her own medications She does not let anyone help her Nobody knows what medications she is taking at all, dosages, how many pills she is taking Family is unable to help her at all, she will not let them States it has not been good since she came home from the hospital States she cannot breathe when she walks documented in this encounter Plan of Treatment Upcoming Encounters Date Type Department Care Team (Late st Contact Info) Description 03/05/2024 3:00 PM EDT Office Visit Cardiology, [facility] [address] [place] [id number] Quynh Marrero PA-C [address] [place] [id number] 09/02/2024 3:10 PM EDT Office Visit Family Medicine [address] [place] [phone] [address] [place] [address] Scheduled Procedures Name Priority Associated Diagnoses Date/Ti me COLONOSCOPY FLEXIBLE PROXIMAL DIAGNOSTIC Recall History of colon polyps Health Maintenance Due Date Last Done Comments Mammogram 01/18/2022 01/18/2021, 11/26, 05/25/2019, Additional history exists Albumin/Creatinine Ratio 02/15/2023 022, 02/06/2021, 09/04/2019, Additional history exists COLONOSCOPY-EVERY 5 YRS AGES 18-100 04/29/2023 04/29/2018, 04/29/2018, 04/17/2013, Additional history exists HbA1c 05/01/2023 10/31/2022, 03/2 02/2022, 08/30/2021, Additional history exists COVID-19 Vaccine ( season) 2023 Influenza Vaccine (FLU shot) (#1) 2023 08/21/2022, 08/16/2021, 09/29/2020, Additional history exists Diabetic Eye Exam 12/25/2023 12/25/2022, , 08/14/2022, Additional history exists Depression Screening 03/01/2024 03/01/2023 Diabetic Foot Exam 03/01/2024 03/01/2023, 0 03/23/2022, 01/10/2021, Additional history exists GFR 01/26/2025 01/27/2024, 12/0 05/2022, 02/08/2022, Additional history exists DXA Scan 02/04/2025 02/04/2023, [...] this encounter Medical Devices Implanted Type Area It Specialist Device Identifier Shelf Expiration Date Model / Serial / Lot Nucleus [id number] Cochlear Implant With Contour Advance Electrode Implanted:Qty: 1 on 10/04/2015 by [place]ny [place] [facility] [place] [employer] 06/14/2017 [id number] / [id number] / Description:[id number] documented as of this encounter Visit Diagnoses Diagnosis Hospital discharge follow-up- Primary Other follow-up examination Chronic systolic heart failure (HCC) Chronic systolic heart failure Pleural effusion Unspecified pleural effusion Type 1 diabetes mellitus with diabetic polyneuropathy (HCC) Type I (juvenile type) diabetes mellitus with neurological manifestations, not stated as uncontrolled Hemiplegia and hemiparesis following cerebral infarction affecting left non- dominant side (HCC) Atherosclerotic heart disease of [place] coronary artery with other forms of angina pectoris (HCC) Dyslipidemia, goal LDL below 70 Other and unspecified hyperlipidemia S/P coronary artery stent placement Postsurgical percutaneous transluminal coronary angioplasty status Aphasia, post-stroke Unspecified cerebral artery occlusion with cerebral infarction Type 1 diabetes mellitus with hemoglobin A1c goal of 7.0%-8.0% (HCC) documented in this encounter Advance Directives Latest [...] the patient have Health Care Power of Patient Centered Care Specialist? No Care Teams Flying Instructor Relationship Specialty Start Date End Date Amairani Boyd MD [address] [place] [address] [place] [address] PCP - General Family Medicine 12/23/19 documented as of this encounter
--- OUTSIDE RECORDS SUMMARY | 2024-02-22 05:25 | External Medical Summary | Summary of Care ---
Author Name Unknown Organization [facility] Address [address] [place] [address] Phone [phone] Care Team Providers Care Civil Cad Tech Name Role Phone Amairani Boyd MD Primary Care Prov ider Reason for Visit * Reason Onset Date Comments Advice 02/05/2024 Encounter Details Date Type Department Care Team (Late st Contact Info) Description 02/05/2024 Telephone Otolaryngology/Head & Neck/Facial Plastic Surgery [address] [place] [address] Services, Scheduling [address] [place] [address] Advice Allergies Active Allergy Reactions Criticality Noted Date Comments Atorvastatin Other (Please comment) 05/17/2014 Myalgias, dysarthria Prednisone Other (Please comment) 04/13/2013 Metabolic-hyperglycemia documented as of this encounter (statuses as of 02/06/2024) Medications Medication Sig Dispensed Refills Start Date [...] ER 25 Tablet 11 02/25/2023 02/25/2024 Active Glucose Blood In Vitro StripIndications:Ty pe 1 diabetes mellitus with hemoglobin A1c goal of 7.0%-8.0% ([facility]) USE TO TEST BLOOD SUGAR 4 TIMES DAILY 600 Strip 2 06/11/2023 Active BD Pen Needle Mini U/F 31G X 5 MM (Insulin Pen Needle)Indications: Type 1 diabetes mellitus with hemoglobin A1c goal of 7.0%-8.0% ([facility]) Use 4 times a day [...] hemoglobin A1c goal of 7.0%-8.0% ([facility]) Inject 3 Units under the skin in the morning and 3 Units at noon and 3 Units in the evening. Inject with meals. Three times a day with meals.. 0 02/04/2024 Active documented as of this encounter (statuses as of 02/06/2024) Active Problems Problem Noted Date Diagnosed Date Hemiplegia and hemiparesis f ollowing cerebral infarction affecting left non-dominant side 02/04/2024 Type 1 diabetes mellitus with diabetic polyneuro solange 02/04/2024 Atherosclerotic heart diseas e of [place] coronary artery with other forms of angina pectoris 02/04/2024 Chronic systolic heart failure 02/04/[address] 09/06/2022 Aphasia, post-stroke 03/23/2022 Hemiplegia, post-stroke 03/23/2022 Receptive aphasia 02/15/2022 History of [place] (myocardial infarction) 12/15/2020 S/P coronary artery stent [...] Lipid Taxonomy. Coronary artery disease invo lving [place] coronary artery of [place] heart without angina pectoris 08/11/2009 Chronic otitis externa 06/02/2008 ADVANCE DIRECTIVE INFORMATION 04/22/2007 Overview: No, Advance Directive brochure given to patient at prior appointment. Meniere's disease of both ears Sensorineural hearing loss, bilateral Temporomandibular joint disorders, unspecified Degeneration of cervical intervertebral disc Schatzki's ring documented as of this encounter (statuses as of 02/06/2024) Resolved Problems Problem Noted Date Diagnosed Date [...] for Patients with Cardiovascular Disease Project # [id number] PI: Selina Robert MD Please call [phone] with study related questions GENOMICS CARDIO RESEARCH OTHER*[id number] 08/15/2009 01/01/2017 Overview: Renamed Per Clinical Trials Billing Project. Study Titile: Genomics Markers for Patients with Cardiovascular Disease Project # [id number] PI: Selina Robert MD Please call [phone] with study related questions Abnormal electrocardiogram 07/20/2009 [...] as of this encounter (statuses as of 02/06/2024) Immunizations Name Administration Dates Next Due DTaP Dipth/Tet/Acell Pertussis (Infanrix), Peds 08/16/2021 Hepatitis B, 20+ yrs 12/14/2014,07/06/2014,05/17 Pneumococcal Conjugate Vacc, 13 Valent (Prevnar) 08/16/2017 Pneumococcal Conjugate Vacci ne, 20-valent ([id number]) 10/30/2022 Pneumococcal Polysaccharide PPV23 (Pneumovax) 07/17/2006 Seasonal [...] encounter Miscellaneous Notes * Telephone Encounter - Octavia Osorio LPN - 02/06/2024 10:00 AM EDT Attempted to call patient, VM full. Spoke with delroy Kumar 03/04/24 at 10:15am with in [place]. * Telephone Encounter - Olivia Price OSA - 02/05/2024 5:56 PM EDT Pt's sister in law calling due to pt's coch implant is not working. She reports pt cannot hear anything and pt has sores on her head around where coch is but pt is not in pain. She is wondering if this may be related to the implants not working though. Please reach out to advise as soon as possible. [phone] Sarah (son) [phone] Stacy (sister in law) documented in this encounter Plan of Treatment Upcoming Encounters Date Type Department Care Team (Late st Contact Info) Description 03/04/2024 10:00 AM EDT Office Visit Otolaryngology/Head & Neck/Facial Plastic Surgery [address] [place] [address] Tonny Joshua MD [address] [place] [address] 03/05/2024 3:00 PM EDT [facility] [place] [address] Quynh [facility]rero [facility]-C [facility] [place] [address] 03/17/2024 1:20 PM EDT Office Visit [facility] [place] [address] Jennifer Oviedo PA-C [address] [facility] [place] [address] 09/02/2024 3:10 PM EDT Office Visit Family Medicine [address] [place] [phone] [address] [place] [address] Scheduled Procedures Name Priority Associated Diagnoses Date/Ti me COLONOSCOPY FLEXIBLE PROXIMAL DIAGNOSTIC Recall History of colon polyps Health Maintenance Due Date Last Done Comments Mammogram 01/18/2022 01/18/2021, 11/26, 05/25/2019, Additional history exists Albumin/Creatinine Ratio 02/15/2023 022, 02/06/2021, 09/04/2019, Additional history exists COLONOSCOPY-EVERY 5 YRS AGES 18-100 04/29/2023 04/29/2018, 04/29/2018, 04/17/2013, Additional history exists HbA1c 05/01/2023 10/31/2022, /02/2022, 08/30/2021, Additional history exists COVID-19 Vaccine ( [...] this encounter Medical Devices Implanted Type Area Machinist Helper Marine Device Identifier Shelf Expiration Date Model / Serial / Lot Nucleus [id number] Cochlear Implant With Contour Advance Electrode Implanted:Qty: 1 on 10/04/2015 by Tonny Joshua MD at OR [facility] Left: Ear [employer] 06/14/2017 [id number] / [id number] / Description:[id number] documented as of this [...] the patient have Health Care Power of Apprentice Cook? No Care Teams Civil Cad Tech Relationship Specialty Start Date End Date Amairani Boyd MD [address] [place] [address] [place] [address] PCP - General Family Medicine 12/23/19 documented as of this encounter
--- OUTSIDE RECORDS SUMMARY | 2024-02-22 05:26 | External Medical Summary ---
Author Name Unknown Address Unknown Organization [facility] [address] [place] [address] Laboratory Report Ordering Provider Test Date Status MOON RUSSELL 01/27/2024 12:17:31 Final Observation Date Value Abnormality Reference (Units ) Status BUN 01/27/2024 12:17:31 29 Above high normal 6-20 (mg/dL) Final Creatinine 01/27/2024 12:17:31 0.8 0.5-1.0 (mg/dL) Final Glomerular filtration rate/1.73 sq M.predicted [Volume Rate/Area] in Serum, Plasma or Blood by Creatinine-based formula (CKD-EPI) 01/27/2024 12:17:31 80 >=60 (mL/min) Final eGFR is calculated based on the CKD-EPI 2020 equation SODIUM 01/27/2024 12:17:31 139 135-146 (m mol/L) Final Potassium 01/27/2024 12:17:31 3.8 3.5-5.1 (m mol/L) Final Cl 01/27/2024 12:17:31 94 Below low normal 98- 107 (mmol/L) Final CO2 01/27/2024 12:17:31 27 22-32 (mmo l/L) Final Anion gap 01/27/2024 12:17:31 18 Above high normal 7- 15 (mmol/L) Final Glucose 01/27/2024 12:17:31 77 70-120 (mg /dL) Final Albumin 01/27/2024 12:17:31 3.9 3.8-5.0 (g /dL) Final AST (Aspartate aminotransferase) 01/27/2024 12:17:31 43 Above high normal 10-35 (U/L) Final Alk Phos 01/27/2024 12:17:31 72 35-130 (U/ L) Final Bilirubin, Total 01/27/2024 12:17:31 0.9 <=1 .2 (mg/dL) Final Calcium 01/27/2024 12:17:31 9.5 8.4-10.2 ( mg/dL) Final Protein 01/27/2024 12:17:31 6.4 6.0-8.3 (g /dL) Final ALT (Alanine aminotransferase) 01/27/2024 12:17:31 28 10-35 (U/L) Joao woods Performing Location [facility] [address] [facility] [place] [address]
--- OUTSIDE RECORDS SUMMARY | 2024-02-22 05:26 | External Medical Summary | Summary of Care ---
Author Name Unknown Organization [facility] Address [address] [place] [address] Phone [phone] Care Team Providers Care Precision Dyer Name Role Phone Amairani Boyd MD Primary Care Prov ider Reason for Visit * Reason Onset Date Comments Outpatient Testing 01/14/2024 case management 01/14/2024 Encounter Details Date Type Department Care Team (Late st Contact Info) Description 01/14/2024 Telephone Care Coordination and Integration [address] [place], [place] [id number] Shelly Lo RN [address] [place] [address] Outpatient Testing; case management Allergies Active Allergy Reactions Criticality Noted Date Comments Atorvastatin Other (Please comment) 05/17/2014 Myalgias, dysarthria Prednisone Other (Please comment) 04/13/2013 Metabolic-hyperglycemia documented as of this encounter (statuses as of 01/15/2024) Medications Medication Sig Dispensed Refills Start Date [...] with hemoglobin A1c goal of 7.0%-8.0% ([facility]) USE TO TEST BLOOD SUGAR 4 TIMES DAILY 600 Strip 2 06/11/2023 Active NovoLOG FlexPen 100 UNIT/ML Subcutaneous Solution Pen-injectorIndica tions:Type 1 diabetes mellitus with hemoglobin A1c goal of 7.0%-8.0% (HCC) INJECT 6 UNITS UNDER THE SKIN PRIOR TO MEALS 30 mL 0 09/18/2023 Active Additional Information Patient taking differently: 3 Units, Three times a day with meals., Informant: At Discharge, Reported on 01/14/2024 BD Pen Needle Mini U/F 31G X [...] mouth in the morning. 0 01/12/2024 Active documented as of this encounter (statuses as of 01/15/2024) Active Problems Problem Noted Date Diagnosed Date Cochlear implant in place 09/06/2022 Aphasia, post-stroke 03/23/2022 Hemiplegia, post-stroke 03/23/2022 Receptive aphasia 02/15/2022 History of [place] (myocardial infarction) 12/15/2020 S/P coronary artery stent [...] Lipid Taxonomy. Coronary artery disease invo lving [place] coronary artery of [place] heart without angina pectoris 08/11/2009 Chronic otitis externa 06/02/2008 ADVANCE DIRECTIVE INFORMATION 04/22/2007 Overview: No, Advance Directive brochure given to patient at prior appointment. Meniere's disease of both ears Sensorineural hearing loss, bilateral Temporomandibular joint disorders, unspecified Degeneration of cervical intervertebral disc Schatzki's ring documented as of this encounter (statuses as of 01/15/2024) Resolved Problems Problem Noted Date Diagnosed Date [...] for Patients with Cardiovascular Disease Project # [id number] PI: Selina Robert MD Please call [phone] with study related questions GENOMICS CARDIO RESEARCH OTHER*[id number] 08/15/2009 01/01/2017 Overview: Renamed Per Clinical Trials Billing Project. Study Titile: Genomics Markers for Patients with Cardiovascular Disease Project # [id number] PI: Selina Robert MD Please call [phone] with study related questions Abnormal electrocardiogram 07/20/2009 [...] as of this encounter (statuses as of 01/15/2024) Immunizations Name Administration Dates Next Due DTaP Dipth/Tet/Acell Pertussis (Infanrix), Peds 08/16/2021 Hepatitis B, 20+ yrs 12/14/2014,07/06/2014,05/17 Pneumococcal Conjugate Vacc, 13 Valent (Prevnar) 08/16/2017 Pneumococcal Conjugate Vacci ne, 20-valent ([id number]) 10/30/2022 Pneumococcal Polysaccharide PPV23 (Pneumovax) 07/17/2006 Seasonal [...] the money to buy more. Never true 01/14/20 24 Within the past 12 months, t he food you bought just didn't last and you didn't have money to get more. Never true 01/14/2024 Sex and Gender Information Value Date Recorded Sex Assigned at Female 03/01/2023 2:31 PM EDT Gender Identity Not on file Sexual Orientation Straight 03/01/2023 2: 31 PM EDT Job Start Date Occupation Industry Not on file Not on file Not on file documented as of this encounter Miscellaneous Notes * Telephone Encounter - Olivia Hilario OSA - 01/15/2024 8:44 AM EST Spoke with Pt's son, appt scheduled for January 26. * Telephone Encounter - Sudhir Thomas DO - 01/14/2024 6:17 PM EST No need for nuclear stress test. Please cancel order. Sudhir Thomas DO * Telephone Encounter - Marilee Stone CMA - 01/14/2024 3:58 PM EST Patient recently inpatient at [facility] with two separate admissions, 12/29-01/02 & 01/08-01/12. Per 01/02 d/c summary, patient should have Cardiology f/u in 2-[address] Thomas, most recently seen by Laurie. Luarie/Dr. Thomas - should nuclear stress test be rescheduled at this time? * Telephone Encounter - Shelly Lo RN - 01/14/2024 3:40 PM EST Patient was inpatient at [facility] 01/08/24 to 01/12/24 with CHF. Family reports patient missed an appointment to have nuclear stress test done due to being inpatient. Asking if you could have that rescheduled?? I do not see it in Epic, was she having that done elsewhere? Reports Dr Thomas as the ordering doctor. Thank you. documented in this encounter Plan of Treatment Upcoming Encounters Date Type Department Care Team (Late st Contact Info) Description 01/17/2024 2:20 PM EST Office Visit Family Medicine [address] [phone] Mili Ocampo MD [address] [place] [address] [place] [address] 01/27/2024 10:30 AM EST Office Visit Cardiology, [facility] [address] [place] [address] Sudhir Thomas DO [address] [place] [address] Scheduled Procedures Name Priority Associated Diagnoses Date/Ti me COLONOSCOPY FLEXIBLE PROXIMAL DIAGNOSTIC Recall History of colon polyps Health Maintenance Due Date Last Done Comments Mammogram 01/18/2022 01/18/2021, 11/26, 05/25/2019, Additional history exists Albumin/Creatinine Ratio 02/15/2023 022, 02/06/2021, 09/04/2019, Additional history exists COLONOSCOPY-EVERY 5 YRS AGES 18-100 04/29/2023 04/29/2018, 04/29/2018, 04/17/2013, Additional history exists HbA1c 05/01/2023 10/31/2022, 01/24, 08/30/2021, Additional history exists COVID-19 Vaccine ( [...] this encounter Medical Devices Implanted Type Area Metal Cnc Operator Device Identifier Shelf Expiration Date Model / Serial / Lot Nucleus [id number] Cochlear Implant With Contour Advance Electrode Implanted:Qty: 1 on 10/04/2015 by Tonny Joshua MD at OR [facility] Left: Ear [employer] 06/14/2017 [id number] / [id number] / Description:[id number] documented as of this [...] the patient have Health Care Power of Senior Customer Service Representative? No Care Teams Precision Dyer Relationship Specialty Start Date End Date Amairani Boyd MD [address] [place] [address] [place] [phone] PCP - General Family Medicine 12/23/19 documented as of this encounter
--- OUTSIDE RECORDS SUMMARY | 2024-02-22 05:26 | External Medical Summary | Summary of Care ---
Author Name Unknown Organization [facility] Address [address] [place] [address] Phone [phone] Care Team Providers Care Plant General Manager Name Role Phone Amairani Boyd MD Primary Care Prov ider Reason for Visit * Reason Onset Date Comments Health Maintenance 01/28/2024 Encounter Details Date Type Department Care Team (Late st Contact Info) Description 01/28/2024 Telephone Family Medicine [address] [place] [phone] Amairani Boyd MD [address] [place] [address] [place] [address] Health Maintenance Allergies Active Allergy Reactions Criticality Noted Date Comments Atorvastatin Other (Please comment) 05/17/2014 Myalgias, dysarthria Prednisone Other (Please comment) 04/13/2013 Metabolic-hyperglycemia documented as of this encounter (statuses as of 01/28/2024) Medications Medication Sig Dispensed Refills Start Date [...] mellitus with hemoglobin A1c goal of 7.0%-8.0% ([facility]) USE TO TEST BLOOD SUGAR [...] as of this encounter (statuses as of 01/28/2024) Active Problems Problem Noted Date Diagnosed Date [...] Lipid Taxonomy. Coronary artery disease invo lving [place] coronary artery of [place] heart without angina pectoris 08/11/2009 Chronic otitis externa 06/02/2008 ADVANCE DIRECTIVE INFORMATION 04/22/2007 Overview: No, Advance Directive brochure given to patient at prior appointment. Meniere's disease of both ears Sensorineural hearing loss, bilateral Temporomandibular joint disorders, unspecified Degeneration of cervical intervertebral disc Schatzki's ring documented as of this encounter (statuses as of 01/28/2024) Resolved Problems Problem Noted Date Diagnosed Date [...] for Patients with Cardiovascular Disease Project # [id number] PI: Selina Robert MD Please call [phone] with study related questions GENOMICS CARDIO RESEARCH OTHER*[id number] 08/15/2009 01/01/2017 Overview: Renamed Per Clinical Trials Billing Project. Study Titile: Genomics Markers for Patients with Cardiovascular Disease Project # [id number] PI: Selina Robert MD Please call [phone] with study related questions Abnormal electrocardiogram 07/20/2009 [...] as of this encounter (statuses as of 01/28/2024) Immunizations Name Administration Dates Next Due DTaP Dipth/Tet/Acell Pertussis (Infanrix), Peds 08/16/2021 Hepatitis B, 20+ yrs 12/14/2014,07/06/2014,05/17 Pneumococcal Conjugate Vacc, 13 Valent (Prevnar) 08/16/2017 Pneumococcal Conjugate Vacci ne, 20-valent ([id number]) 10/30/2022 Pneumococcal Polysaccharide PPV23 (Pneumovax) 07/17/2006 Seasonal [...] encounter Miscellaneous Notes * Telephone Encounter - Radha BarnhartJERRY - 01/28/2024 3:09 PM EST Care Gaps Comprehensive Care Outreach Last Office/Telemedicine Visit: 07/23/2023 (in office), Visit date not found (telemedicine) Next Office Visit: 02/04/2024 Hemoglobin AIC Results: Lab Results Component Value Date/Time HEMOGLOBIN A1C - [facility] 7.5 (H) 10/31/2022 09:18 AM HEMOGLOBIN A1C - [facility] 7.6 (H) 02/15/2022 03:16 PM HEMOGLOBIN A1C - [facility] 8.6 (H) 08/30/2021 09:07 AM HEMOGLOBIN A1C - [facility] 7.7 (H) 06/01/2020 09:05 AM HEMOGLOBIN A1C - [facility] 7.6 (H) 08/28/2019 09:09 AM HEMOGLOBIN A1C - [facility] 7.0 (H) 02/14/2018 02:47 PM BP Readings from Last 1 Encounters: 01/27/24 122/68 Reviewed Health Maintenance below: Health Maintenance Topic Date Due Mammogram 01/18/2022 Albumin/Creatinine Ratio 02/15/2023 COLONOSCOPY-EVERY 5 YRS AGES 18-100 04/29/2023 HbA1c 05/01/2023 Influenza Vaccine (FLU shot) (1) 07/26/2023 COVID-19 Vaccine () Never done Diabetic Eye Exam 12/25/2023 Diabetic Foot Exam 03/01/2024 Depression Screening 03/01/2024 Mamm Colon Eye Lab already ordered Care Gap Outreach Action Taken: Left message documented in this encounter Plan of Treatment Upcoming Encounters Date Type Department Care Team (Late st Contact Info) Description 02/04/2024 2:20 PM EDT Office Visit Family Medicine [address] [place] [phone] Mili Ocampo MD [address] [place] [address] [place] [address] 03/05/2024 3:00 PM EDT Office Visit Cardiology, [facility] [address] [place] [address] Quynh Marrero PA-C [address] [place] [address] Scheduled Procedures Name Priority Associated Diagnoses Date/Ti [...] 01/10/2021, Additional history exists GFR 01/26/2025 01/27/2024, 12/05/2022, 02/08/2022, Additional history exists DXA Scan 02/04/2025 [...] this encounter Medical Devices Implanted Type Area Enforcement Officer Device Identifier Shelf Expiration Date Model / Serial / Lot Nucleus [id number] Cochlear Implant With Contour Advance Electrode Implanted:Qty: 1 on 10/04/2015 by Tonny Joshua MD at OR [facility] Left: Ear [employer] 06/14/2017 [id number] / [id number] / Description:[id number] documented as of this [...] the patient have Health Care Power of Growth Media Mixer Mushroom? No Care Teams Plant General Manager Relationship Specialty Start Date End Date Amairani Boyd MD [address] [place] [address] [place] [phone] PCP - General Family Medicine 12/23/19 documented as of this encounter
--- OUTSIDE RECORDS SUMMARY | 2024-02-22 05:26 | External Medical Summary | Summary of Care ---
Author Name Unknown Organization [facility] Address [address] [place] [address] Phone [phone] Care Team Providers Care Exercise Rider Name Role Phone Amairani Boyd MD Primary Care Prov ider Reason for Visit * Reason Comments Outpatient Testing Encounter Details Date Type Department Care Team (Late st Contact Info) Description 01/27/2024 12:40 PM EST Laboratory Laboratory, [facility] [address] [place] [phone] BrittonAna Laura [facility] [address] [facility] [place] [id number] HFrEF (heart failure with reduced ejection fraction) (HCC) Allergies Active Allergy Reactions Criticality Noted Date Comments Atorvastatin Other (Please comment) 05/17/2014 Myalgias, dysarthria Prednisone Other (Please comment) 04/13/2013 Metabolic-hyperglycemia documented as of this encounter (statuses as of 01/27/2024) Medications Medication Sig Dispensed Refills Start Date [...] hemoglobin A1c goal of 7.0%-8.0% ([facility]) USE TO TEST BLOOD SUGAR 4 TIMES DAILY 600 Strip 2 06/11/2023 Active NovoLOG FlexPen 100 UNIT/ML Subcutaneous Solution Pen-injectorIndica tions:Type 1 diabetes mellitus with hemoglobin A1c goal of 7.0%-8.0% ([facility]) INJECT 6 UNITS UNDER THE SKIN PRIOR TO MEALS 30 mL 0 09/18/2023 Active Additional Information Patient taking differently: 3 Units, Three times a day with meals., Informant: At Discharge, Reported on 01/14/2024 BD Pen Needle Mini U/F 31G X 5 MM (Insulin Pen Needle)Indications :Type 1 diabetes mellitus with hemoglobin A1c goal of 7.0%-8.0% ([facility]) Use 4 times a day [...] as of this encounter (statuses as of 01/27/2024) Active Problems Problem Noted Date Diagnosed Date Cochlear implant in place 09/06/2022 Aphasia, post-stroke 03/23/2022 Hemiplegia, post-stroke 03/23/2022 Receptive aphasia 02/15/2022 History of [place] (myocardial infarction) 12/15/2020 S/P coronary artery stent [...] Lipid Taxonomy. Coronary artery disease invo lving kaw coronary artery of kaw heart without angina pectoris 08/11/2009 Chronic otitis externa 06/02/2008 ADVANCE DIRECTIVE INFORMATION 04/22/2007 Overview: No, Advance Directive brochure given to patient at prior appointment. Meniere's disease of both ears Sensorineural hearing loss, bilateral Temporomandibular joint disorders, unspecified Degeneration of cervical intervertebral disc Schatzki's ring documented as of this encounter (statuses as of 01/27/2024) Resolved Problems Problem Noted Date Diagnosed Date [...] for Patients with Cardiovascular Disease Project # [id number] PI: Selina Robert MD Please call [phone] with study related questions GENOMICS CARDIO RESEARCH OTHER*[id number] 08/15/2009 01/01/2017 Overview: Renamed Per Clinical Trials Billing Project. Study Titile: Genomics Markers for Patients with Cardiovascular Disease Project # [id number] PI: Selina Robert MD Please call [phone] with study related questions Abnormal electrocardiogram 07/20/2009 [...] as of this encounter (statuses as of 01/27/2024) Immunizations Name Administration Dates Next Due DTaP Dipth/Tet/Acell Pertussis (Infanrix), Peds 08/16/2021 Hepatitis B, 20+ yrs 12/14/2014,07/06/2014,05/17 Pneumococcal Conjugate Vacc, 13 Valent (Prevnar) 08/16/2017 Pneumococcal Conjugate Vacci ne, 20-valent ([id number]) 10/30/2022 Pneumococcal Polysaccharide PPV23 (Pneumovax) 07/17/2006 Seasonal [...] 2:20 PM EDT Office Visit Family Medicine [address] [place] [phone] Mili Ocampo MD [address] [place] [address] [place] [id number] 03/05/2024 3:00 PM EDT Office Visit Cardiology, [facility] [address] [place] [address] Quynh Marrero PA-C [address] [place] [address] Pending Results Name Type Priority Associated Diagnoses Date /Time CBC Lab Routine HFrEF (heart failure with reduced ejection fraction) ([facility]) 01/27/2024 12:17 PM EST COMPREHENSIVE METABOLIC PANEL Lab Routine HFrEF (heart failure with reduced ejection fraction) ([facility]) 01/27/2024 12:17 PM EST Scheduled Procedures Name Priority Associated Diagnoses Date/Ti [...] this encounter Medical Devices Implanted Type Area Commercial Loan Assistant Device Identifier Shelf Expiration Date Model / Serial / Lot Nucleus [id number] Cochlear Implant With Contour Advance Electrode Implanted:Qty: 1 on 10/04/2015 by Tonny Joshua MD at OR [facility] Left: Ear [employer] 06/14/2017 [id number] / [id number] / Description:[id number] documented as of this encounter Visit Diagnoses Diagnosis HFrEF (heart failure with reduced ejection fraction) ([facility]) documented in this encounter Advance Directives Latest [...] the patient have Health Care Power of Irrigator Gravity Flow? No Care Teams Exercise Rider Relationship Specialty Start Date End Date Amairani Boyd MD [address] [place] [address] [place] [id number] PCP - General Family Medicine 12/23/19 documented as of this encounter
--- OUTSIDE RECORDS SUMMARY | 2024-02-22 05:26 | External Medical Summary | Summary of Care ---
Author Name Unknown Organization [facility] Address [address] [place] [address] Phone [phone] Care Team Providers Care Fire Tower Keeper Name Role Phone Amairani Boyd MD Primary Care Prov ider Reason for Referral * Evaluate & Treat - Unlimited Visits (Within 30 days (routine)) - Authorized Specialty Diagnoses / Procedures Referred By Ailyn tellez Referred To Contact Neurology Diagnoses Aphasia, post-stroke MELAS (mitochondrial encephalopathy, lactic acidosis and stroke-like episodes) (HCC) Sudhir Thomas, DO [address] [place] [address] Referral ID Status Reason Start Date Expiration Date Visits Requested Visits Authorized [id number] Authorized Specialty Services Required 01/27/[phone] Question Answer Referral Priority Within 30 days (routine) Where should this appointment be scheduled? [facility] This patient already has care established with Neurology. Do not place this order. Please use Ask A Doc to expedite care. Acknowledge Is this referral being placed for insurance purposes ONLY No, patient needs appointment [facility] NEUROLOGY REFERRAL QUESTIONS Stroke Comments H/o stroke, MELAS syndrome, has seen Leo Oviedo in the past Needs to re-establish care Reason for Visit * Reason Comments Follow Up Encounter Details Date Type Department Care Team (Late st Contact Info) Description 01/27/2024 10:30 AM EST Office Visit Cardiology, [facility] [address] [place] [id number] Sudhir Thomas DO [address] [place] [address] HFrEF (heart failure with reduced ejection fraction) (HCC)*; Tachycardia; Localized edema; Aphasia, post-stroke; MELAS (mitochondrial encephalopathy, lactic acidosis and stroke-like episodes) (HCC) Allergies Active Allergy Reactions Criticality Noted [...] GO TO ER 25 Tablet 11 02/25/2023 Active Glucose Blood In Vitro StripIndications:T ype 1 diabetes mellitus with hemoglobin A1c goal of 7.0%-8.0% ([facility]) USE TO TEST BLOOD SUGAR 4 TIMES DAILY 600 Strip 2 06/11/2023 Active NovoLOG FlexPen 100 UNIT/ML Subcutaneous Solution Pen-injectorIndica tions:Type 1 diabetes mellitus with hemoglobin A1c goal of 7.0%-8.0% ([facility]) INJECT 6 UNITS UNDER THE SKIN PRIOR TO MEALS 30 mL 0 09/18/2023 Active Additional Information Patient taking differently: 3 Units, Three times a day with meals., Informant: At Discharge, Reported on 01/14/2024 BD Pen Needle Mini U/F 31G X 5 MM (Insulin Pen Needle)Indications :Type 1 diabetes mellitus with hemoglobin A1c goal of 7.0%-8.0% ([facility]) Use 4 times a day with [...] Lipid Taxonomy. Coronary artery disease invo lving [place] coronary artery of [place] heart without angina pectoris 08/11/2009 Chronic otitis [...] for Patients with Cardiovascular Disease Project # [id number] PI: Selina Robert MD Please call [phone] with study related questions GENOMICS CARDIO RESEARCH OTHER*[id number] 08/15/2009 01/01/2017 Overview: Renamed Per Clinical Trials Billing Project. Study Titile: Genomics Markers for Patients with Cardiovascular Disease Project # [id number] PI: Selina Robert MD Please call [phone] with study related questions Abnormal electrocardiogram 07/20/2009 [...] (Prevnar) 08/16/2017 Pneumococcal Conjugate Vacci ne, 20-valent ([id number]) 10/30/2022 Pneumococcal Polysaccharide PPV23 (Pneumovax) 07/17/2006 Seasonal [...] Sign Reading Time Taken Comments Blood Pressure 122/68 01/27/2024 10:28 AM EST Pulse 120 01/27/2024 10:28 AM EST Temperature - - Respiratory Rate 20 01/27/2024 10:28 AM EST Oxygen Saturation - - Inhaled Oxygen Concentration - - Weight 53.5 kg (118 lb) 01/27/2024 10:28 AM EST Height - - Body Mass Index 21.58 10/03/2022 4:02 PM EST documented in this encounter Patient Instructions * Patient Instructions* Sudhir Thomas DO - 01/27/2024 11:31 AM EST Heart Medications: Aspirin 81 mg daily- to prevent heart attacks and strokes Metoprolol succinate 25 mg one tablet daily in the morning and one in the evening (controls the heart rate and blood pressure) Furosemide 40 mg daily in the morning, to help with shortness of breath and swelling (water pill) Repatha 140 mg injected subcutaneously every 2 weeks. documented in this encounter Progress Notes * Sudhir Thomas DO - 01/27/2024 10:38 AM EST 01/27/2024 Cardiology Follow Up PCP: AMAIRANI BOYD [address] [place] [address] [place] [address] CHIEF COMPLAINT: Post hospital follow-up, acute on chronic heart failure with reduced ejection fraction, underlying ischemic cardiomyopathy, history of stroke SUBJECTIVE: Shanda Chavez is a 68 year old year old female who returns in post hospital cardiology follow-up of the above concerns. Since the patient's most recent outpatient visit in September, she had been hospitalized on Two occasions in January, at [facility]. Echocardiogram performed at [facility] on 12/29/2023 revealed severe hypokinesis to akinesis of the basal and mid inferior wall and inferoseptum with prym-zh-uuexeach diffuse hypokinesis noted otherwise, LVEF 35- 40%. Moderate to severe mitral regurgitation observed as well as tricuspid regurgitation and a moderate-sized left pleural effusion. Compared to her previous inpatient echocardiogram performed at that institution in June,, the ejection fraction was 55-60% at that time. After her initial hospital stay in early December, she was rehospitalized with ongoing symptoms of dyspnea and concerns of medication nonadherence. She underwent ultrasound-guided left thoracentesis on 01/01/2024 yielding 350 milliliters of fluid.Cytology was negative for findings to suggest malignancy. Medications at time of discharge were to include metoprolol succinate 25 milligrams twice daily, furosemide 40 milligrams daily, aspirin 81 milligrams daily, Repatha 140 milligrams every 2 weeks. Candidacy for LAUREN inhibitor/Arb/ARNi therapy were to be reassessed as an outpatient given concerns of relative hypotension and renal insufficiency during hospital stay. She presents today accompanied by her dxdvxffd-ju-gty, Stacy. As noted during her recent hospital stay the patient has progressive issues with what is felt to beboth a receptive and expressive aphasia that has worsened since her stroke that took place in January,, with baseline hearing impairment and use of a cochlear implant. The patient expresses feeling frustrated with ongoing shortness of breath and worsening left greater than right lower extremity edema since hospital stay. Cardiac Problem List: Coronary heart disease, non STEMI, prompting cardiac catheterization, drug- eluting stent to the proximal LAD, [facility], 05/16/2020, subtotal occlusion of the RPDA branch of the distal right coronary artery supplied with axhj-ix-lfgsw collaterals, treated medically, not amenable to revascularization Intolerance of Brilinta prompting transition to clopidogrel Recurrent angina prompting nuclear stress test November,, with abnormal EKG response, symptoms of angina reproduced Repeat cardiac catheterization, [facility], 12/12/2020 with findings of patent LAD stent, distal RPDA stenosis once again observed with mguw-sg-ssfom collaterals unchanged MELAS syndrome, (myopathy, encephalopathy, lactic acidosis and stroke) therefore not statin candidate EGD, 2015, Mild Schatzki ring. Dilated January 2022 with an acute left MCA infarction Extensive ROS: All systems reviewed & are unremarkable except as noted in HPI & below Cardiovascular (chest pain/palpitations/fluttering/diaphoresis/dyspnea on exertion/paroxysmally nocturnal dyspnea):Negative Review of patient's allergies indicates: Allergen Reactions [...] . Excedrin Migraine 250-250-65 MG Oral Tablet (Equsgmw-Hdirijoagzawf-Cbdvrmqt) Take 1 Tablet by mouthevery 6 hours [...] UNITS UNDER THE SKIN PRIOR TO MEALS (Patient taking differently: 3 Units. Three times a day with meals.) 30 mL 0 Insulin Glargine 100 UNIT/ML Subcutaneous Solution (Lantus) Inject 15 Units under the skin at bedtime. Metoprolol Succinate ER 25 MG Oral Tablet Extended Release 24 Hour (toPROL XL) Take 1 Tablet by mouth in the morning and 1 Tablet before bedtime. BD Pen Needle Mini U/F 31G X 5 MM (Insulin Pen Needle) Use 4 times a day with insulin pens. DX e10.9 400 Each 0 Furosemide 40 MG Oral Tablet (Lasix) Take 1 Tablet by mouth in the morning. (Patient not taking: Reported on 01/27/2024) No current facility-administered medications for this visit. OBJECTIVE/PHYSICAL EXAMINATION: BP 122/68 | Pulse 120 | Resp 20 | Wt 53.5 kg (118 lb) | LMP 12/02/2000 | BMI 21.58 kg/m | BSA 1.53 m General: no acute distress and stated age Eyes: conjunctiva are pink and non-injected, sclera clear Neck: normal jugular venous pulse, no hepatojugular reflux Chest: normal shape and normal respiratory effort Lungs: clear to auscultation , no rales rhonchi or wheezing Cardiac Exam: - regular heart sounds, no murmurs, rubs, or gallops Abdomen: abdomen soft, non-tender, no abnormal masses and no hepatosplenomegaly Musculoskeletal: no gait disturbance, no weakness Extremities: 2-3+ left lower extremity edema, 1-2+ right lower extremity edema, bilateral pedal edema, diabetic foot wounds noted on the dorsal aspect of the feet bilaterally, no skin breakdown on the soles, toes, or heals Neuro: Receptive and expressive aphasia noted, moves all 4 extremities spontaneously Data: EKG performed today 01/27/2024 reveals sinus tachycardia 126 beats per minute, age undetermined anterior septal infarct pattern noted with Q-waves in the anterior precordial leads V1 , V3, and age undetermined inferior infarct pattern. Compared to the previous tracing within the [facility] [place], operated by [facility], the sinus tachycardia he had been previously observed, the anteroseptal infarct pattern had been previously observed, inferior infarct pattern now noted. Lipid Panel Results: Results for orders placed or performed in visit on 06/24/23 LIPID PANEL WITH DIRECT LDL IF TG IS HIGH Result Value Ref Range Triglycerides 159 <=174 mg/dL Cholesterol 168 <200 mg/dL HDL Cholesterol 45 (L) >49 mg/dL Non-HDL Cholesterol 123 <=159 mg/dL LDL Cholesterol 91 <=129 mg/dL ASSESSMENT / PLAN: 68 year old year old female HFrEF (heart failure with reduced ejection fraction) ([facility]) (Primary) - EKG; Future; Expected date: 01/27/2024 - XR CHEST 2 VIEWS - CBC; Future; Expected date: 01/27/2024 - COMPREHENSIVE METABOLIC PANEL; Future; Expected date: 01/27/2024 Tachycardia - EKG; Future; Expected date: 01/27/2024 - XR CHEST 2 VIEWS Localized edema - VASC DUPLEX VENOUS LE BILAT; Future; Expected date: 01/27/2024 - XR CHEST 2 VIEWS Aphasia, post-stroke - NEUROLOGY REFERRAL OP MELAS (mitochondrial encephalopathy, lactic acidosis and stroke-like episodes) ([facility]) - NEUROLOGY REFERRAL OP Discussion: Patient presents in hospital follow-up of acute on chronic heart failure with reduced ejection fraction with what is felt to be an ischemic cardiomyopathy. Based on her echocardiogram performed in December,, the previous distal right coronary artery territory CAD has likely progressed and she has a scar in this territory on both echo and EKG. The patient had previously been on dual anti-platelet therapy post LAD coronary stent. At the time for previous visit with me a year ago in January, she vigorously expressed her preference to no longer be on clopidogrel. After a significant interval of negotiation we are able to come to an agreement for her to continue taking aspirin and clopidogrel was discontinued. She had been seen for symptoms of chest discomfort in September, with characteristics were feltto be atypical for angina. At that time volume status was stable. A nuclear stress test was recommended, but patient ended up hospitalized for new onset heart failure before the test could be completed. My impression during her hospital stay was that the best course of action was to proceed with medication therapy rather than consideration of stress testing and repeat invasive testing especially in the setting of concerns of medication nonadherence. She expressed today that she was not taking the furosemide that he had been prescribed at the time of recent discharge because of concerns of it making her dizzy. Based on the findings of sinus tachycardia 126 beats per minute, I would speculate that she was also not taking the metoprolol. At the time for second hospital stay in December, it was felt that medication non adherence was likely playing a role. There was even discussion with regards to need for placement with regards to a higher level of care to ensure the patient takes her medications. Her fhrddoqb-wl-afk tells me that the patient has declined her offers to help her with pillbox. The patient has [facility] [employer] insurance and [facility] primary care provider, and per review of her chart, previous efforts were made dating back to 2021 to refer her to [facility], however the patient refuses to have an anyonecome to her home on a chronic basis and that preferences ongoing. Diagnostics: I would speculate that her lower extremity edema is due to congestive heart failure however it was asymmetric with worsening left lower extremity edema. Therefore the patient was referred for a stat lower extremity venous duplex today. The duplex was negative for DVT. Chest x-ray performed today reveals small to moderate bilateral pleural effusions per my personal interpretation. The formal radiology report suggests basilar opacities concerning for pneumonia. The patient has since however had blood work. She lacks evidence for infection with regards to no leukocytosis, and denies cough, and given her clinical presentation and history I think this is likely congestive heart failure and not pneumonia. Lab work revealed normal hemoglobin and platelet count. AST minimally elevated 43 units/liter. Renal function stable with noted mildly low chloride level of 94. Therapeutics: Patient counseled to utilize aspirin 81 milligrams daily, metoprolol succinate 25 milligrams twice daily, furosemide 40 milligrams daily as previously prescribed. She was also to continue Repatha 140milligrams subcutaneously every 2 weeks. Her cardiac medications were reviewed with her dlhybiru-gr-irp. The issues with regards to needing to adhere to the medication regimen discussed at length with thepatient and family member mi concerns that if adjustments are not successful, she was going to needto be rehospitalized and eventually end up needing nursing home care. I spent a total of Greater than 55 mins (exact time 75 mins) on the date of service in preparation,delivery, and documentation of the care provided to Shanda Chavez excluding any time spent in theperformance of separately billed services. This included 58 minutes in the exam room from 10:30 a.m. until 11:28 a.m., coordination of testing, and preparation of this note. I called the patient's idtsbbvr-dq-rdx and reviewed the results of the lower extremity venous duplex, chest x-ray, and lab work. Would recommend follow-up with Neurology with whom the patient used to see on a regular basis but has not had routine follow-up. She has ongoing Neurology concerns with regards to her history of MELAS and cerebrovascular disease. DISPOSITION: Follow Up: Return in about 4 weeks (around 02/24/2024) for Clinic Visit. | For: Clinic Visit | Check-out note: Follow up with Dr Thomas or AMINA in 4-8 weeks. Pt has seen Michael Marrero and José Manuel Romano in the past. Needs to re-establish with neurology , missed visit last month Sudhir Thomas, DO Cardiology, [facility] [address] [place] [address] This chart was completed in part utilizing [employer] Speech Voice Recognition Software. Grammatical errors, random word insertions, prounoun errors, and incomplete sentences are an occasional consequence of this system due to software limitations, ambient noise, and hardware issues. Any formal questions or concerns about the content, text, or information contained within the body of this dictation should be directly addressed to the provider for clarification. documented in this encounter Nursing Notes * Snehal Mead LPN - 01/27/2024 10:26 AM EST Examination Room: 10 Name: Shanda Chavez Date of : 1955 Reason for Visit: Follow up Problems/Concerns: Stopped furosemide d/t dizziness Interim Hosp(s): Denies 01/12 Chest Pain/SOB: denies MyChart Discussed: ALREADY ACTIVE Patient was instructed to not get up on the exam table until directed and assisted by their provider; patient is to remain seated in the chair/ wheelchair/ exam table for fall prevention and safety reasons. Patient is aware staff will assist stepping down off exam table with personnel. documented in this encounter Miscellaneous Notes * Result Encounter Note - Sudhir Thomas DO - 01/27/2024 6:32 PM EST Refer to phone encounter, results discussed with patient's ojjnxrdj-jb-rmo who had been with her atthe time for visit. Sudhir Thomas DO documented in this encounter Plan of Treatment Upcoming Encounters Date Type Department Care Team (Late st Contact Info) Description 02/04/2024 2:20 PM EDT Office Visit Family Medicine [address] [place] [phone] Mili Ocampo MD [address] [place] [address] [place] [address] 03/05/2024 3:00 PM EDT Office Visit Cardiology, [facility] [address] [place] [address] Quynh Marrero PA-C [address] [place] [address] Scheduled Procedures Name Priority Associated Diagnoses Date/Ti me COLONOSCOPY FLEXIBLE PROXIMAL DIAGNOSTIC Recall History of colon polyps Scheduled Referrals Name Type Priority Associated Diagnoses Orde r Schedule NEUROLOGY REFERRAL OP Referral Within 30 days (routine) Aphasia, post-stroke MELAS (mitochondrial encephalopathy, lactic acidosis and stroke-like episodes) (HCC) Ordered: 01/27/2024 Health Maintenance Due Date Last Done Comments [...] this encounter Medical Devices Implanted Type Area Manager Library Device Identifier Shelf Expiration Date Model / Serial / Lot Nucleus [id number] Cochlear Implant With Contour Advance Electrode Implanted:Qty: 1 on 10/04/2015 [place]ny Joshua [place] [facility] [place] [employer] 06/14/2017 [id number] / [id number] / Description:[id number] documented as of this encounter Procedures Procedure Name Priority Date/Time Associated Diagnosis Comments XR CHEST 2 VIEWS STAT 01/27/2024 12:4 3 PM EST HFrEF (heart failure with reduced ejection fraction) (HCC) Tachycardia Localized edema documented in this encounter Results * XR CHEST 2 VIEWS (01/27/2024 12:43 PM EST) Anatomical Region Laterality Modality Chest Computed Radiogr aphy 01/27/2024 1:47 PM EST Impressions 01/27/2024 1:44 PM EST IMPRESSION Basilar opacities concerning for aspiration/pneumonia. Small pleural effusions. Narrative 01/27/2024 1:44 PM EST EXAM XR CHEST 2 VIEWS-01/27/2024 12:43 pm HISTORY CHF COMPARISON Chest radiograph 12/05/2020 TECHNIQUE Frontal and lateral radiographs of the chest were obtained. FINDINGS LINES/DEVICES: None LUNGS/PLEURA: New basilar opacities suspicious for aspiration or pneumonia. Small pleural effusions.. No pneumothorax. CARDIOVASCULAR/MEDIASTINUM: The cardiomediastinal silhouette is within normal limits. OTHER: The upper abdomen is unremarkable. Procedure Note Alli Katz MD - 01/27/2024 EXAM XR CHEST 2 VIEWS-01/27/2024 12:43 pm HISTORY CHF COMPARISON Chest radiograph 12/05/2020 TECHNIQUE Frontal and lateral radiographs of the chest were obtained. FINDINGS LINES/DEVICES: None LUNGS/PLEURA: New basilar opacities suspicious for aspiration orpneumonia. Small pleural effusions.. No pneumothorax. CARDIOVASCULAR/MEDIASTINUM: The cardiomediastinal silhouette is withinnormal limits. OTHER: The upper abdomen is unremarkable. IMPRESSION IMPRESSION Basilar opacities concerning for aspiration/pneumonia. Small pleuraleffusions. Sudhir Thomas DO RADIOLOGY (RAD GENER AL) * VASC DUPLEX VENOUS LE BILAT (01/27/2024 12:17 PM EST) Anatomical Region Laterality Modality Lower Extremity, Vascular Ultras ound Impressions 01/27/2024 12:32 PM EST : Right lower extremity with no evidence of acute deep venous thrombosis. Left lower extremity with no evidence of acute deep venous thrombosis. Narrative 01/27/2024 12:32 PM EST VASCULAR LAB RESULTS DATE OF EXAM: 01/27/24 PRESENTING CONDITIONS: Edema, Unspecified. Pt w/ chronic heart failure This is an interpretation of an exam performed at [facility]. PHYSICIAN REPORT: Lower Extremity Venous Duplex Examination Immediately before proceeding with the vascular lab procedure reported below, the identity of the patient, the correct exam and the correct procedural site were verified. Color flow Doppler, spectral analysis, and transducer compression techniques were applied during this ultrasound image examination. RIGHT LOWER EXTREMITY On duplex examination, the right common femoral vein, the sapheno-femoral junction, the femoral vein in the thigh and popliteal vein are all free of internal echoes and demonstrate normal transducer compressibility during villatoro scale imaging. The posterior tibial veins and peroneal veins demonstrate no evidence of thrombosis. LEFT LOWER EXTREMITY On duplex examination, the left common femoral vein, the sapheno-femoral junction, the femoral vein in the thigh, and popliteal vein are all free of internal echoes and demonstrate normal transducer compressibility during villatoro scale imaging. The posterior tibial veins and peroneal veins demonstrate no evidence of thrombosis. Sudhir Thomas DO RAD VASCULAR * (ABNORMAL) COMPREHENSIVE METABOLIC PANEL (01/27/2024 12:17 PM EST) BUN 29(H) 6 - 20 mg/dL 01/27/2024 1:16 PM EST [facility] Creatinine 0.8 0.5 - 1.0 mg/dL 01/27/2024 1:16 PM EST [facility] Estimated Glomerular Filtration Rate 80 >=60 mL/min 01/27/2024 1:16 PM EST [facility] Comment:eGFR is calculated b ased on the CKD-EPI 2020 equation Sodium 139 135 - 146 mmol/L 01/27/2024 1:16 PM EST [facility] Potassium 3.8 3.5 - 5.1 mmol/L 01/27/2024 1:16 PM EST [facility] Chloride 94(L) 98 - 107 mmol/L 01/27/2024 1:16 PM EST [facility] CO2 27 22 - 32 mmol/L 01/27/2024 1:16 PM EST [facility] Anion Gap 18(H) 7 - 15 mmol/L 01/27/2024 1:16 PM EST [facility] Glucose 77 70 - 120 mg/dL 01/27/2024 1:16 PM EST [facility] Albumin 3.9 3.8 - 5.0 g/dL 01/27/2024 1:16 PM EST [facility] AST 43(H) 10 - 35 U/L 01/27/2024 1:16 PM EST [facility] Alkaline Phosphatase 72 35 - 130 U/L 01/27/2024 1:16 PM EST [facility] Bilirubin, Total 0.9 <=1.2 mg/dL 01/27/2024 1:16 PM EST [facility] Calcium 9.5 8.4 - 10.2 mg/dL 01/27/2024 1:16 PM EST [facility] Protein 6.4 6.0 - 8.3 g/dL 01/27/2024 1:16 PM EST [facility] ALT 28 10 - 35 U/L 01/27/2024 1:16 PM EST [facility] Blood Venous blood specimen / Unknown Venipuncture / Unknown 01/27/2024 12:17 PM EST 01/27/2024 12:17 PM EST Sudhir Thomas DO LAB BLOOD ORDERABLES [facility] [address] [place] [id number] * CBC (01/27/2024 12:17 PM EST) WBC 8.94 4.00 - 10.80 K/uL 01/27/2024 12:41 PM EST [facility] RBC 4.84 3.85 - 5.15 M/uL 01/27/2024 12:41 PM EST [facility] HGB 12.9 12.0 - 15.3 g/dL 01/27/2024 12:41 PM EST [facility] HCT 39.2 36.0 - 45.2 % 01/27/2024 12:41 PM EST [facility] MCV 81.0 81.5 - 97.5 fL 01/27/2024 12:41 PM EST [facility] MCH 26.7 27.0 - 34.0 pg 01/27/2024 12:41 PM EST [facility] MCHC 32.9 32.0 - 36.0 g/dL 01/27/2024 12:41 PM EST [facility] RDW 15.3 11.5 - 15.5 % 01/27/2024 12:41 PM EST [facility] PLT 264 140 - 400 K/uL 01/27/2024 12:41 PM EST [facility] MPV 11.7 6.6 - 11.1 fL 01/27/2024 12:41 PM EST [facility] Blood Venous blood specimen / Unknown Venipuncture / Unknown 01/27/2024 12:17 PM EST 01/27/2024 12:17 PM EST Sudhir Thomas DO LAB BLOOD ORDERABLES [facility] [address] [place] [id number] * EKG (01/27/2024 10:45 AM EST) 01/27/2024 10:4 5 AM EST Narrative Procedure Note Sudhir Thomas DO - 01/27/2024 10:45 AM EST REASON FOR STUDY: tachycardia;tachycardia CONCLUSIONS: Sinus tachycardia Possible Left atrial enlargement Left axis deviation Inferior infarct , age undetermined Anteroseptal infarct (cited on or before 15-APR-2017) Abnormal ECG When compared with ECG of 21-OCT-2023 10:12, Inferior infarct is now Present Ventricular Rate: 126 Atrial Rate: 126 SC Interval: 112 QRS Duration: 78 QT/QTc: 332/480 ms P-R-T Terril: 65 : -50 : 138 degrees Sudhir Thomas DO EKG [facility] documented in this encounter Visit Diagnoses Diagnosis HFrEF (heart failure with reduced ejection fraction) (HCC)- Primary Tachycardia Tachycardia, unspecified Localized edema Edema Aphasia, post-stroke Unspecified cerebral artery occlusion with cerebral infarction MELAS (mitochondrial encephalopathy, lactic acidosis and stroke-like episodes) (HCC) Disorders of mitochondrial metabolism HFrEF (heart failure with reduced ejection fraction) (HCC) Tachycardia Tachycardia, unspecified Localized edema Edema documented in this encounter Advance Directives Latest [...] the patient have Health Care Power of Deputy Clerk Of Court? No Care Teams Fire Tower Keeper Relationship Specialty Start Date End Date Amairani Boyd MD [address] [place] [address] [place] [address] PCP - General Family Medicine 12/23/19 documented as of this encounter
--- OUTSIDE RECORDS SUMMARY | 2024-02-22 05:26 | External Medical Summary ---
Author Name Unknown Address Unknown Organization K0G:[facility] [place] [facility] - [address] [place] [address] Laboratory Report Ordering Provider Test Date Status MOON RUSSELL 01/27/2024 12:17:31 Final Observation Date Value Abnormality Reference (Units ) Status WBC, Total 01/27/2024 12:17:31 8.94 4.00-10.8 0 (K/uL) Final RBC 01/27/2024 12:17:31 4.84 3.85-5.15 (M/uL) Final Hemoglobin 01/27/2024 12:17:31 12.9 12.0-15.3 (g/dL) Final HCT 01/27/2024 12:17:31 39.2 36.0-45.2 (%) Final MCV 01/27/2024 12:17:31 81.0 81.5-97.5 (fL) Final MCH 01/27/2024 12:17:31 26.7 27.0-34.0 (pg) Final MCHC 01/27/2024 12:17:31 32.9 32.0-36.0 (g/dL) Final RDW 01/27/2024 12:17:31 15.3 11.5-15.5 (%) Final Platelets 01/27/2024 12:17:31 264 140-400 (K /uL) Final MPV 01/27/2024 12:17:31 11.7 6.6-11.1 ( fL) Final Performing Location [facility]1 0 - [address] [place] [id number]
--- OUTSIDE RECORDS SUMMARY | 2024-02-22 05:26 | External Medical Summary | Summary of Care ---
Author Name Unknown Organization [facility] Address [address] [place] [address] Phone [phone] Care Team Providers Care Hearing Screener Name Role Phone Amairani Boyd MD Primary Care Prov ider Reason for Visit * Reason Onset Date Comments Outpatient Testing 01/14/2024 case management 01/14/2024 Encounter Details Date Type Department Care Team (Late st Contact Info) Description 01/14/2024 Telephone Care Coordination and Integration [address] [place], [place] [phone] Shelly Lo RN [address] [place] [address] Outpatient Testing; case management Allergies [...] post-stroke 03/23/2022 Receptive aphasia 02/15/2022 History of MA (myocardial infarction) 12/15/2020 S/P coronary artery stent [...] Lipid Taxonomy. Coronary artery disease invo lving [place] coronary artery of [place] heart without angina pectoris 08/11/2009 Chronic otitis [...] for Patients with Cardiovascular Disease Project # [id number] PI: Selina Robert MD Please call [phone] with study related questions GENOMICS CARDIO RESEARCH OTHER*[id number] 08/15/2009 01/01/2017 Overview: Renamed Per Clinical Trials Billing Project. Study Titile: Genomics Markers for Patients with Cardiovascular Disease Project # [id number] PI: Selina Robert MD Please call [phone] with study related questions Abnormal electrocardiogram 07/20/2009 [...] (Prevnar) 08/16/2017 Pneumococcal Conjugate Vacci ne, 20-valent ([id number]) 10/30/2022 Pneumococcal Polysaccharide PPV23 (Pneumovax) 07/17/2006 Seasonal [...] PM EST Patient recently inpatient at [facility] with two separate admissions, 12/29-01/02 & 01/08-01/12. Per 01/02 d/c summary, patient should have Cardiology f/u in 2-[address] Thomas, most recently seen by Laurie. Laurie/Dr. Thomas - should nuclear stress test be rescheduled at this time? * Telephone Encounter - Shelly Lo RN - 01/14/2024 3:40 PM EST Patient was inpatient at [facility] 01/08/24 to 01/12/24 with CHF. Family reports [...] 2:20 PM EST Office Visit Family Medicine [address] [phone] Mili Ocampo MD [address] [place] [address] [place] [address] 01/27/2024 10:30 AM EST Office Visit Cardiology, [facility] [address] [place] [address] Sudhir Thomas DO [address] [place] [address] Scheduled Procedures Name Priority Associated Diagnoses Date/Ti [...] this encounter Medical Devices Implanted Type Area Paper Conservator Device Identifier Shelf Expiration Date Model / Serial / Lot Nucleus [id number] Cochlear Implant With Contour Advance Electrode Implanted:Qty: 1 on 10/04/2015 by Tonny Joshua MD at [facility] Left: Ear [employer] 06/14/2017 [id number] / [id number] / Description:[id number] documented as of this [...] the patient have Health Care Power of Agency Sales Management Assistant? No Care Teams Hearing Screener Relationship Specialty Start Date End Date Amairani Boyd MD [address] [place] [address] [place] [phone] PCP - General Family Medicine 12/23/19 documented as of this encounter
--- OUTSIDE RECORDS SUMMARY | 2024-02-22 05:27 | External Medical Summary | Summary of Care ---
Author Name Unknown Organization [facility] Address [address] [place] [address] Phone [phone] Care Team Providers Care Workers Compensation Coordinator Name Role Phone Amairani Boyd MD Primary Care Prov ider Reason for Visit * Reason Onset Date Comments Appointment 01/14/2024 case management 01/14/2024 Encounter Details Date Type Department Care Team (Late st Contact Info) Description 01/14/2024 Telephone Care Coordination and Integration [address] [place], [place] [phone] Shelly Lo RN [address] [place] [address] Appointment; case management Allergies Active Allergy Reactions Criticality Noted Date Comments Atorvastatin Other (Please comment) 05/17/2014 Myalgias, dysarthria Prednisone Other (Please comment) 04/13/2013 Metabolic-hyperglycemia documented as of this encounter (statuses as of 01/14/2024) Medications Medication Sig Dispensed Refills Start Date [...] 2.5 MG Oral Tablet (Norvasc)Indication s:Atherosclerosis of [place] coronary artery of [place] heart without angina pectoris,HTN, goal below 140/90,S/P coronary artery stent placement TAKE ONE TABLET BY MOUTH EVERY DAY 90 Tablet 3 12/21/2022 03/11/2024 Active Glucose Blood In Vitro StripIndications:Ty pe 1 diabetes mellitus with hemoglobin A1c goal of 7.0%-8.0% ([facility]) USE TO TEST BLOOD SUGAR 4 TIMES DAILY 600 Strip 2 06/11/2023 Active NovoLOG FlexPen 100 UNIT/ML Subcutaneous Solution Pen-injectorIndicat ions:Type 1 diabetes mellitus with hemoglobin A1c goal of 7.0%-8.0% ([facility]) INJECT 6 UNITS UNDER THE SKIN PRIOR TO MEALS 30 mL 0 09/18/2023 Active BD Pen Needle Mini U/F 31G X 5 MM (Insulin Pen Needle)Indications: Type 1 diabetes mellitus with hemoglobin A1c goal of 7.0%-8.0% ([facility]) Use 4 times a day with [...] as of this encounter (statuses as of 01/14/2024) Active Problems Problem Noted Date Diagnosed Date Cochlear implant in place 09/06/2022 Aphasia, post-stroke 03/23/2022 Hemiplegia, post-stroke 03/23/2022 Receptive aphasia 02/15/2022 History of ID (myocardial infarction) 12/15/2020 S/P coronary artery stent [...] Lipid Taxonomy. Coronary artery disease invo lving [place] coronary artery of [place] heart without angina pectoris 08/11/2009 Chronic otitis externa 06/02/2008 ADVANCE DIRECTIVE INFORMATION 04/22/2007 Overview: No, Advance Directive brochure given to patient at prior appointment. Meniere's disease of both ears Sensorineural hearing loss, bilateral Temporomandibular joint disorders, unspecified Degeneration of cervical intervertebral disc Schatzki's ring documented as of this encounter (statuses as of 01/14/2024) Resolved Problems Problem Noted Date Diagnosed Date [...] for Patients with Cardiovascular Disease Project # [id number] PI: Selina Robert MD Please call [phone] with study related questions GENOMICS CARDIO RESEARCH OTHER*[id number] 08/15/2009 01/01/2017 Overview: Renamed Per Clinical Trials Billing Project. Study Titile: Genomics Markers for Patients with Cardiovascular Disease Project # [id number] PI: Selina Robert MD Please call [phone] with study related questions Abnormal electrocardiogram 07/20/2009 [...] as of this encounter (statuses as of 01/14/2024) Immunizations Name Administration Dates Next Due DTaP Dipth/Tet/Acell Pertussis (Infanrix), Peds 08/16/2021 Hepatitis B, 20+ yrs 12/14/2014,07/06/2014,05/17 Pneumococcal Conjugate Vacc, 13 Valent (Prevnar) 08/16/2017 Pneumococcal Conjugate Vacci ne, 20-valent ([id number]) 10/30/2022 Pneumococcal Polysaccharide PPV23 (Pneumovax) 07/17/2006 Seasonal [...] money to buy more. Never true 01/14/20 Within the past 12 months, t he [...] encounter Miscellaneous Notes * Telephone Encounter - Shelly Lo RN - 01/14/2024 11:38 AM EST MyG message sent to patient regarding hospital follow up appointment. documented in this encounter Plan of Treatment Upcoming Encounters Date Type Department Care Team (Late st Contact Info) Description 01/17/2024 2:20 PM EST Office Visit Family Medicine [facility] [address] [place] [phone] Mili Ocampo MD [address] [place] [address] [place] [address] Scheduled Procedures Name Priority Associated Diagnoses Date/Ti [...] this encounter Medical Devices Implanted Type Area Student Services Counselor Device Identifier Shelf Expiration Date Model / Serial / Lot Nucleus [id number] Cochlear Implant With Contour Advance Electrode Implanted:Qty: 1 on 10/04/2015 by Tonny Joshua MD at [facility] Left: Ear [employer] 06/14/2017 [id number] / [id number] / Description:[id number] documented as of this [...] the patient have Health Care Power of Marketing Editor? No Care Teams Workers Compensation Coordinator Relationship Specialty Start Date End Date Amairani Boyd MD [address] [place] [address] [place] [phone] PCP - General Family Medicine 12/23/19 documented as of this encounter
--- OUTSIDE RECORDS SUMMARY | 2024-02-22 05:27 | External Medical Summary | Summary of Care ---
Author Name Unknown Organization [facility] Address [address] [place] [address] Phone [phone] Care Team Providers Care Artificial Limb Fitter Name Role Phone Amairani Boyd MD Primary Care Prov ider Reason for Visit * Reason Onset Date Comments [facility]: Screening 01/09/2024 Encounter Details Date Type Department Care Team (Late st Contact Info) Description 01/09/2024 Telephone [facility], [facility] [address] [place] [address] [facility], Nurse [facility] [address] [place] [phone] [facility]: Screening Allergies Active Allergy Reactions Criticality Noted Date [...] 2.5 MG Oral Tablet (Norvasc)Indication s:Atherosclerosis of [place] coronary artery of [place] heart without angina pectoris,HTN, goal below 140/90,S/P coronary artery stent placement TAKE ONE TABLET BY MOUTH EVERY DAY 90 Tablet 3 12/21/2022 03/11/2024 Active Glucose Blood In Vitro StripIndications:Ty pe 1 diabetes mellitus with hemoglobin A1c goal of 7.0%-8.0% ([facility]) USE TO TEST BLOOD SUGAR 4 TIMES DAILY 600 Strip 2 06/11/2023 Active NovoLOG FlexPen 100 UNIT/ML Subcutaneous Solution Pen-injectorIndicat ions:Type 1 diabetes mellitus with hemoglobin A1c goal of 7.0%-8.0% ([facility]) INJECT 6 UNITS UNDER THE SKIN PRIOR TO MEALS 30 mL 0 09/18/2023 Active BD Pen Needle Mini U/F 31G X 5 MM (Insulin Pen Needle)Indications: Type 1 diabetes mellitus with hemoglobin A1c goal of 7.0%-8.0% ([facility]) Use 4 times a day with insulin [...] post-stroke 03/23/2022 Receptive aphasia 02/15/2022 History of MD (myocardial infarction) 12/15/2020 S/P coronary artery stent [...] Lipid Taxonomy. Coronary artery disease invo lving [place] coronary artery of [place] heart without angina pectoris 08/11/2009 Chronic otitis [...] for Patients with Cardiovascular Disease Project # [id number] PI: Selina Robert MD Please call [phone] with study related questions GENOMICS CARDIO RESEARCH OTHER*[id number] 08/15/2009 01/01/2017 Overview: Renamed Per Clinical Trials Billing Project. Study Titile: Genomics Markers for Patients with Cardiovascular Disease Project # [id number] PI: Selina Robert MD Please call [phone] with study related questions Abnormal electrocardiogram 07/20/2009 [...] (Prevnar) 08/16/2017 Pneumococcal Conjugate Vacci ne, 20-valent ([id number]) 10/30/2022 Pneumococcal Polysaccharide PPV23 (Pneumovax) 07/17/2006 Seasonal [...] got the money to buy more. Patient declined Within the past 12 months, t he food you bought just didn't last and you didn't have money to get more. Patient declined 05/2023 Sex and Gender Information Value Date Recorded Sex Assigned at Female 03/01/2023 2:31 PM EDT Gender Identity Not on file Sexual Orientation Straight 03/01/2023 2: 31 PM EDT Job Start Date Occupation Industry Not on file Not on file Not on file documented as of this encounter Miscellaneous Notes * Telephone Encounter - Karen Langley, JERRY - 01/14/2024 9:37 AM EST Call to pt at [phone] no answer mailbox full Call to [phone] pt's son no answer left VM Call to [phone] pt's sister in law Stacy. She stated pt still has her dog and won't let anyonein to the home.Asked if dog could be placed in a separate room for visits. Stacy said probable but pt would not agree to that. Shanda Chavez was referred as a potential candidate for enrollment for [facility]. A review of this chart was completed and: Shanda does not meet criteria for enrollment into [facility]. Referral Source: [facility] Criteria for Ineligibility: Not Located in Service Area Referring care team was notified via : [employer] communication Patient does live in [facility] service area Does not meet criteria due to safety with dog * Telephone Encounter - Karen Langley LPN - 01/09/2024 9:35 AM EST Call from [facility] Porsha Lo with referral to [facility] Made aware I would elevate referral to [facility] leadership and get back to her with their decision Awaiting decision documented in this encounter Plan of Treatment Scheduled Procedures Name Priority Associated Diagnoses Date/Ti [...] this encounter Medical Devices Implanted Type Area Area Supervisor Device Identifier Shelf Expiration Date Model / Serial / Lot Nucleus [id number] Cochlear Implant With Contour Advance Electrode Implanted:Qty: 1 on 10/04/2015 by Tonny Joshua MD at [facility] Left: Ear [employer] 06/14/2017 [id number] / [id number] / Description:[id number] documented as of this [...] the patient have Health Care Power of As400 Administrator? No Care Teams Artificial Limb Fitter Relationship Specialty Start Date End Date Amairani Boyd MD [address] [place] [address] [place] [phone] PCP - General Family Medicine 12/23/19 documented as of this encounter
--- OUTSIDE RECORDS SUMMARY | 2024-02-22 05:27 | External Medical Summary | Summary of Care ---
Author Name Unknown Organization [facility] Address [address] [place] [address] Phone [phone] Care Team Providers Care Windshield Technician Name Role Phone Amairani Boyd MD Primary Care Prov ider Reason for Visit * Reason Onset Date Comments [facility]: Screening 01/09/2024 Encounter Details Date Type Department Care Team (Late st Contact Info) Description 01/09/2024 Telephone [facility], [facility] [address] [facility] [address] [place] [address] [facility], Nurse [facility] [address] [place] [phone] [facility]: Screening Allergies Active Allergy Reactions Criticality Noted Date Comments Atorvastatin Other (Please comment) 05/17/2014 Myalgias, dysarthria Prednisone Other (Please comment) 04/13/2013 Metabolic-hyperglycemia documented as of this encounter (statuses as of 01/09/2024) Medications Medication Sig Dispensed Refills Start Date [...] 2.5 MG Oral Tablet (Norvasc)Indication s:Atherosclerosis of [place] coronary artery of [place] heart without angina pectoris,HTN, goal below 140/90,S/P coronary artery stent placement TAKE ONE TABLET BY MOUTH EVERY DAY 90 Tablet 3 12/21/2022 03/11/2024 Active Glucose Blood In Vitro StripIndications:Ty pe 1 diabetes mellitus with hemoglobin A1c goal of 7.0%-8.0% ([facility]) USE TO TEST BLOOD SUGAR 4 TIMES DAILY 600 Strip 2 06/11/2023 Active NovoLOG FlexPen 100 UNIT/ML Subcutaneous Solution Pen-injectorIndicat ions:Type 1 diabetes mellitus with hemoglobin A1c goal of 7.0%-8.0% ([facility]) INJECT 6 UNITS UNDER THE SKIN PRIOR TO MEALS 30 mL 0 09/18/2023 Active BD Pen Needle Mini U/F 31G X 5 MM (Insulin Pen Needle)Indications: Type 1 diabetes mellitus with hemoglobin A1c goal of 7.0%-8.0% ([facility]) Use 4 times a day with insulin [...] as of this encounter (statuses as of 01/09/2024) Active Problems Problem Noted Date Diagnosed Date [...] Lipid Taxonomy. Coronary artery disease invo lving [place] coronary artery of [place] heart without angina pectoris 08/11/2009 Chronic otitis externa 06/02/2008 ADVANCE DIRECTIVE INFORMATION 04/22/2007 Overview: No, Advance Directive brochure given to patient at prior appointment. Meniere's disease of both ears Sensorineural hearing loss, bilateral Temporomandibular joint disorders, unspecified Degeneration of cervical intervertebral disc Schatzki's ring documented as of this encounter (statuses as of 01/09/2024) Resolved Problems Problem Noted Date Diagnosed Date [...] for Patients with Cardiovascular Disease Project # [id number] PI: Selina Robert MD Please call [phone] with study related questions GENOMICS CARDIO RESEARCH OTHER*[id number] 08/15/2009 01/01/2017 Overview: Renamed Per Clinical Trials Billing Project. Study Titile: Genomics Markers for Patients with Cardiovascular Disease Project # [id number] PI: Selina Robert MD Please call [phone] with study related questions Abnormal electrocardiogram 07/20/2009 [...] as of this encounter (statuses as of 01/09/2024) Immunizations Name Administration Dates Next Due DTaP Dipth/Tet/Acell Pertussis (Infanrix), Peds 08/16/2021 Hepatitis B, 20+ yrs 12/14/2014,07/06/2014,05/17 Pneumococcal Conjugate Vacc, 13 Valent (Prevnar) 08/16/2017 Pneumococcal Conjugate Vacci ne, 20-valent ([id number]) 10/30/2022 Pneumococcal Polysaccharide PPV23 (Pneumovax) 07/17/2006 Seasonal [...] Miscellaneous Notes * Telephone Encounter - Karen Langley LPN - 01/09/2024 9:35 AM EST Call from MERRITT Lo with referral to [facility] Made aware I would elevate referral to [facility] leadership and get back to her with their decision Awaiting decision documented in this encounter Plan of Treatment Upcoming Encounters Date Type Department Care Team (Late st Contact Info) Description 01/09/2024 11:20 AM EST Office Visit Family Medicine [address] [place] [phone] Leeanne Maher PA-C [address] [place] [address] [place] [phone] Scheduled Procedures Name Priority Associated Diagnoses Date/Ti [...] this encounter Medical Devices Implanted Type Area Polisher And Sander Device Identifier Shelf Expiration Date Model / Serial / Lot Nucleus [id number] Cochlear Implant With Contour Advance Electrode Implanted:Qty: 1 on 10/04/2015 by Tonny Joshua MD at [facility] Left: Ear [employer] 06/14/2017 [id number] / [id number] / Description:[id number] documented as of this [...] the patient have Health Care Power of [place] Lifeguard? No Care Teams Windshield Technician Relationship Specialty Start Date End Date Amairani Boyd MD [address] [place] [address] [place] [phone] PCP - General Family Medicine 12/23/19 documented as of this encounter
--- NOTE | 2024-02-22 06:59 | Cardiology Consultation ---
Date of Consultation February 22, 2024 Assessment & Plan (1) Acute on chronic heart failure with reduced ejection fraction and diastolic dysfunction: (2) Bilateral pleural effusion: (3) Elevated troponin: (4) CAD (coronary artery disease): (5) MELAS (mitochondrial encephalopathy, lactic acidosis and stroke-like epis odes): Plan IMPRESSION: Medically complex 68-year-old female admitted due to a fall but found to be in acute on chronic heart failure. Last LVEF of 35% per inpatient echo 12/2023. Chest x-ray with pleural effusion PLAN: Acute on chronic HFrEF: Hypervolemia likely in the setting of medication noncompliance. Normally maintained on furosemide 40 mg daily at home. Was receiving IV Lasix 40 mg 3 times daily-- currently on hold due to rising lactate Strict I's and O's. Daily weights. 2 g sodium diet. Monitor renal function. Replace potassium to a goal of 4.0 and mag of 2.0. Elevated troponin: Troponin: 138-->125 (H/O elevated troponins during prior admissions in similar range). EKG without ischemic changes. Low likelihood for ACS. Sinus Tach: Beta rebecca currently on hold due to NPO status, concerns for swallowing difficulty. Recommend starting IV Lopressor 2.5 mg Q6 hours until taking oral. Case discussed with Dr. Cabral. Further recommendations pending their assessment. I spent a total of 40 minutes on the date of service in preparation, delivery, and documentation of the care provided to the patient excluding any time spent in the performance of separately billed services. MASOOD Ochoa Department of Cardiology, [facility] This chart was completed in part utilizing Speech Voice Recognition Software. Grammatical errors, random word insertions, pronoun errors, and incomplete sentences are an occasional consequence of this system due to software limitations, ambient noise, and hardware issues. Any formal questions or concerns about the content, text, or information contained within the body of this dictation should be directly addressed to the provider for clarification. Supervising Physician Co-Signing Physician Notes Patient was seen and personally examined. Full assessment and plan as outlined above. Case and care discussed in detail with advanced provider, agree with plan and take full responsibility I spent a total of 20 minutes on the date of service in preparation, delivery, and documentation of the care provided to the patient excluding any time spent in the performance of separately billed services. 68-year-old female with complex history with prior hospitalizations in recent past presenting once again with acute on chronic systolic heart failure. Possible medication noncompliance or lapse Currently tachycardic this morning IV metoprolol recommended until able to take p.o. History of Present Illness Reason for Consultation: CHF Requesting Physician: Micheal hospitalist Attending Physician: Karen Cruz MD History of Present Illness Medically complex 68-year-old female with past medical history of prior stroke and hearing deficits. Was having concerns with decline in mentation and we akness x 3 days. Patient suffered an unwitnessed fall at home--found by son shortly after the fall occurred and called EMS. Patient was hypoxic at the time with oxygen in the 84% range on room air. Improved to 97% with 4 L. Patient had been hospitalized on 2 occasions in December 2023 at [facility]. Echocardiogram performed at [facility] on 12/29/2023 revealed severe hypokinesis to akinesis of the basal and mid inferior wall and inferoseptum with [id number] diffuse hypokinesis noted otherwise, LVEF 35-40%. Moderate to severe mitral regurgitation observed as well as tricuspid regurgitation and a moderate-sized left pleural effusion. Compared to her previous inpatient echocardiogram performed at that institution in June,, the ejection fraction was 55-60% at that time. After her initial hospital stay in early December 2023 she was rehospitalized with ongoing symptoms of dyspnea and concerns of medication nonadherence. She underwent ultrasound-guided left thoracentesis on 01/01/2024 yielding 350 milliliters of fluid. Cytology was negative for findings to suggest malignancy. Followed up with Dr. Thomas on 01/27/2024 patient noted frustration with ongoing shortness of breath and worsening lower extremity edema since her hospitalization. However, she was noncompliant with her furosemide due to dizziness. Outpatient chest x-ray revealed small to moderate bilateral pleural effusion--patient was urged compliance with her medications. This admission this x-ray revealed progression of pulmonary edema and small bilateral pleural effusions. She was started on 40 mg of IV Lasix 3 times daily. BNP: 1097 Troponin: 138-->125 (H/O elevated troponins during prior admissions in similar range) Questionable UTI, urine and blood cultures pending. Patient placed on antibio tics. She also has known diabetes with hyperglycemia and was started on an insulin drip. Upon entrance into the room patient resting in bed. No acute distress. ROS limited due to cognitive status. No breathing difficulties. +Crackles BL lungs. +lower extremity edema + wounds on feet. Currently NPO until evaluated by Speech. Lasix currently on hold due to Lactic acid trending upward. Telemetry: SR/ST 90- low 100s I&O: -364 mL Weight: 58.4 kg (prior discharge weight was 55.6 kg) Primary outpatient detail supervisor: Dr. Thomas Cardiac Problem List: 1.Coronary heart disease, NSTEMI, prompting cardiac catheterization, drug- eluting stent to the proximal LAD, [facility], 05/16/2020, subtotal occlusion of the RPDA branch of the distal right coronary artery supplied with [id number] collaterals, treated medically, not amenable to revascularization 2.Intolerance of Brilinta prompting transition to clopidogrel 3.Recurrent angina prompting nuclear stress test November,, with abnormal EKG response, symptoms of angina reproduced 4.Repeat cardiac catheterization, [facility], 12/12/2020 with findings of patent LAD stent, distal RPDA stenosis once again observed with [id number] collaterals unchanged 5.MELAS syndrome, (myopathy, encephalopathy, lactic acidosis and stroke) therefore not statin candidate 6.EGD, 2014, Mild Schatzki ring. Dilated 7.January 2022 with an acute left MCA infarction 8. Diabetes type 1 Allergies Allergy/AdvReac Type Severity Reaction Status Date / Time atorvastatin AdvReac Intermediate myalgias, Verified 01/08/24 21:34 dysarthria prednisone AdvReac Intermediate metabolic-h Verified 01/08/24 21:34 yperglycemi a Home Medications Medication Instructions Recorded Confirmed Type vit A 12,500 unit-zinc 12.5 1 cap PO QAM 05/14/20 02/21/24 History ax-lzlruk-yuokn-bilberry-herb #261 capsule (Lipotriad Vision Support) aspirin 81 mg tablet,delayed 81 mg PO QAM #90 tabs 05/17/20 02/21/24 Rx release nitroglycerin 0.4 mg sublingual 0.4 mg sublingual UD PRN chest 05/17/20 02/21/24 Rx tablet (Nitrostat) pain #30 tabs evolocumab 140 mg/mL subcutaneous 140 mg subcut .[id number] 08/10/21 02/21/24 History pen injector (Repatha SureClick) coenzyme Q10 100 mg capsule 100 mg PO DAILY 01/14/22 02/21/24 History (CoQ-10) furosemide 40 mg tablet (Lasix) 40 mg PO DAILY #30 tabs 01/12/24 02/21/24 Rx insulin aspart U-100 100 unit/mL 3 unit (0.03 mL) subcut TIDM #15 mL 01/12/24 02/21/24 Rx (3 mL) subcutaneous pen (Novolog FlexPen U-100 Insulin aspart) insulin glargine 100 unit/mL (3 15 unit (0.15 mL) subcut HS #15 mL 01/12/24 02/21/24 Rx mL) subcutaneous pen (Lantus Solostar U-100 Insulin) metoprolol succinate 25 mg 25 mg PO BID #60 tabs 01/12/24 02/21/24 Rx tablet,extended release 24 hr Patient History Medical History Bilateral pleural effusion Unspecified hereditary retinal dystrophy Bilateral sensorineural hearing loss Bilateral myopia 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 Degeneration of cervical intervertebral disc History of TMJ disorder Hemiplegia Diabetic polyneuropathy Aphasia as late effect of cerebrovascular accident CAD (coronary artery disease) Statin intolerance Atherosclerosis of coronary artery Macular degeneration Mnire's disease Schatzki's ring MELAS (mitochondrial encephalopathy, lactic acidosis and stroke-like episodes) HLD (hyperlipidemia) Type 1 diabetes mellitus Hypertension Surgical History S/P coronary artery stent placement History of heart artery stent History of cochlear implant Left in 2014 History of left heart catheterization 07/2019 which revealed 30% proximal LAD otherwise clean coronaries History of colonoscopy with polypectomy History of cholecystectomy History of hysterectomy Family History Mother Coronary heart disease, Onset Age: 70 Father Coronary heart disease, Onset Age: 50 Daughter MELAS (mitochondrial encephalopathy, lactic acidosis and stroke-like episodes) Social History Smoking Status: Never smoker Tobacco Type: Cigarettes Second Hand Exposure: No; Do You Dip or Chew Tobacco: No; Hx Alcohol Use: No Hx Substance Use: No Preferred Language: Estonian Communication Ability: Impaired Communication Ability Comment: Cochlear implant, communication difficult at times Hearing Ability: 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 Mill Operator Required: No Beliefs That Will Affect Care: None marital status: Current Living Situation: Family Current Living Situation Comment: with son Lee current occupational status: retired and disabled How many Children do You have: 2 Other Information That Helps Us Care for You: No Feels Safe at Home: Yes Safety Concerns: Feels Safe At This Time Assistive Devices: Cane, Glasses and Other Assistive Devices Comment: Chochlar implant Physical Exam Constitutional: + ill appearing (chronically ill) and + cachectic; no acute distress Neck: normal visual inspection and trachea midline Respiratory: normal respiratory effort; no respiratory distress Auscultat ion: + rales; no rhonchi and no wheezes Cardiovascular: Rate/Rhythm: regular rhythm and + tachycardic Heart Sounds: normal S1, normal S2 and + murmur Vessels: no JVD Extremities: + edema (+2 BLLE pitting edema ) Gastrointestinal (Abdomen): normal bowel sounds, soft, nontender, no hepatosplenomegaly Psychiatric: Orientation: alert and oriented x 3; + not oriented to person, + not oriented to place and + not oriented to time Results & Data Vital Signs (Past 12 Hours) Vital Signs Temp Pulse Pulse Resp BP BP Pulse Ox 02/22/24 00:55 36.3 C L 115 H 20 118/73 02/21/24 21:56 117 H 02/21/24 21:22 02/21/24 21:22 36.6 C 120 H 18 115/67 95 02/21/24 20:59 119 H 02/21/24 20:59 02/21/24 20:54 02/21/24 20:22 117 H 02/21/24 19:24 35.8 C L 123 H 20 126/83 96 Pulse Ox O2 Del Method O2 Del Method 02/22/24 00:55 Room Air 02/21/24 21:56 02/21/24 21:22 Room Air 02/21/24 21:22 Room Air 02/21/24 20:59 02/21/24 20:59 95 Room Air 02/21/24 20:54 Room Air 02/21/24 20:22 02/21/24 19:24 Room Air Laboratory Results Cardiac Enzymes 02/21/24 02/21/24 02/21/24 Range/Units 15:16 17:32 23:13 AST 79 H (13-39) U/L Troponin I High Sens 138.7 H* 125.5 H* 171.4 H* D (0-14) pg/ml B-Natriuretic Peptide 1097 H (0-100) pg/ml 02/22/24 Range/Units 06:59 AST 56 H (13-39) U/L Troponin I High Sens 209.3 H* D (0-14) pg/ml B-Natriuretic Peptide (0-100) pg/ml Coagulation 02/21/24 02/22/24 Range/Units 15:16 01:01 PT 17.3 H (9.0-12.0) Seconds APTT 32 H (21-31) Seconds B-Natriuretic Peptide 1097 H (0-100) pg/ml CBC 02/21/24 02/22/24 02/22/24 Range/Units 15:16 01:01 06:59 WBC 9.94 9.37 9.27 (4.8-10.8) K/ul RBC 5.64 H 5.34 5.14 (4.20-5.40) M/uL Hgb 14.4 13.6 13.0 (12.0-16.0) g/dl Hct 44.0 41.5 39.2 (37.0-47.0) % Plt Count 192 179 163 (130-400) K/uL Neut # (Auto) 8.98 H 8.46 H 7.79 H (1.40-6.50) K/uL Lymph # (Auto) 0.47 L 0.45 L 0.80 L (1.20-3.40) K/uL [place] # (Auto) 0.44 0.42 0.61 H (0.11-0.59) K/uL Eos # (Auto) 0.01 0.01 0.03 (0.00-0.50) K/uL Baso # (Auto) 0.01 0.01 0.01 (0.00-0.20) K/uL Comprehensive Metabolic Panel 03/29/24 03/29/24 03/30/24 Range/Units 15:16 23:12 06:59 Sodium 132 L 133 L 137 (136-145) mmol/L Potassium 3.8 3.7 3.1 L (3.5-5.1) mmol/L Chloride 89 L 91 L 93 L (98-107) mmol/L Carbon Dioxide 24 22 29 (21-32) mmol/L BUN 68 H 68 H 60 H (6-23) mg/dl Creatinine 1.07 1.09 1.02 (0.6-1.2) mg/dl Glucose 371 H* 369 H* 126 H (70-99(Fasting)) mg/dl Calcium 9.4 8.9 8.8 (8.6-10.3) mg/dl AST 79 H 56 H (13-39) U/L ALT 60 H 49 (7-52) U/L Alkaline Phosphatase 87 67 (34-104) U/L Total Protein 6.7 5.8 L (6.0-8.3) gm/dl Albumin 3.7 3.2 L (3.4-5.0) gm/dl Intake and Output 02/21/24 02/22/24 02/22/24 22:59 06:59 14:59 Intake Total 525 / 635.982 110.982 / 635.982 5.147 / 5.147 Output Total 1000 / 1000 Balance 525 / -364.018 -889.018 / -364.018 5.147 / 5.147 Intake: IV 525 / 635.982 110.982 / 635.982 5.147 / 5.147 Acetaminophen 1,000 mg In 100 100 / 100 ml @ 400 mls/hr IV NOW STA Rx#: [id number] Insulin Regular 250 units In 10.982 / 10.982 5.147 / 5.147 Sodium Chloride 0.9% 247.5 ml @ 1.6 UNITS/HR 1.6 mls/hr IV . Q24H [facility] Rx#:[id number] Piperacillin/Tazobactam 4.5 gm 100 / 100 In Dextrose 5% Mini-B 100 ml @ 200 mls/hr IV NOW ONE Rx#: [id number] Potassium Chloride / Wtr 10 meq 100 / 100 In 100 ml @ 100 mls/hr IV ONE ONE Rx#:[id number] Vancomycin HCl 1,250 mg In 275 / 275 Sodium Chloride 0.9% 250 ml @ 200 mls/hr IV 1815 ONE Rx#: [id number] cefTRIAXone SODIUM 2,000 mg In 50 / 50 50 ml @ 100 mls/hr IV NOW STA Rx#:[id number] Output: Urine Amount (Catheter) 1000 / 1000 Hess/Indwelling 1000 / 1000 Other: Weight 58.4 kg 58.4 kg Weight Measurement Method Built in [facility] Built in [facility]
[2024-02-22 07:21] LABS: Basophils # (auto) 0.01 K/uL (0.00-0.20); Basophils % (auto) 0.1 %; Eosinophils # (auto) 0.03 K/uL (0.00-0.50); Eosinophils % (auto) 0.3 %; Hematocrit (blood only) 39.2 % (37.0-47.0); Immature Granulocytes # (auto) 0.03 K/uL (0.01-0.20); Immature Granulocytes % (auto) 0.3 %; Lymphocytes % (auto) 8.6 %; Mean Corpuscular Hemoglobin 25.3 pg (25.0-34.0); Mean Corpuscular Hgb Conc 33.2 g/dL (32.0-36.0); Mean Corpuscular Volume 76.3 fL (80.0-100.0); Mean Platelet Volume 11.4 fL (9.4-12.4); Monocytes # (auto) 0.61 K/uL (0.11-0.59); Monocytes % (auto) 6.6 %; Neutrophils # (auto) 7.79 K/uL (1.40-6.50); Neutrophils % (auto) 84.1 %; Platelet Count 163 K/uL (130-400); RDW Coefficient of Variation 16.9 % (11.5-14.5); Red Blood Count 5.14 M/uL (4.20-5.40); White Blood Count 9.27 K/ul (4.8-10.8)
[2024-02-22 07:22] LABS: ANTI-Xa, UFH(UnfractionatedHep 0.59 IU/ml (0.3-0.7)
[2024-02-22 07:49] LABS: Albumin Globulin Ratio 1.2 (0.9-2); Albumin Level 3.2 gm/dl (3.4-5.0); BUN Creatinine Ratio 58.8 (10-20); C Reactive Protein 2.45 mg/dl (0-0.5); Calcium 8.8 mg/dl (8.6-10.3); Est GFR (African American) 65.9 ml/min; Est GFR (Non-African American) 56.9 ml/min; Globulin 2.6 gm/dl (2.5-4.0); Potassium 3.1 mmol/L (3.5-5.1); Total Protein 5.8 gm/dl (6.0-8.3); Troponin I High Sensitivity 209.3 pg/ml (0-14)
--- NOTE | 2024-02-22 07:53 | Hospitalist Progress Note ---
Date of Service February 22, 2024 Assessment & Plan (1) Acute on chronic heart failure with reduced ejection fraction and diastolic dysfunction: (2) Fall: (3) AMS (altered mental status): (4) Cellulitis of foot: (5) Elevated troponin: (6) Hyperglycemia: (7) Type 1 diabetes mellitus: (8) CAD (coronary artery disease): (9) MELAS (mitochondrial encephalopathy, lactic acidosis and stroke-like episodes): (10) H/O: stroke with residual effects: (11) Hypertension: Plan: Ms. Chavez is a 68-year-old female with past med history significant for type 1 diabetes, diabetic polyneuropathy, hyperlipidemia, chronic rhinitis, CAD s/p stent, hypertension, history of CVA, aphasia poststroke, Schatzki"s ring, Mnire's disease,MELAS, cochlear implant in place, was recently in the hospital for acute CHF in 12/2023 awho is being admitted for acute on chronic enceph alopathy as well as concern for acute on chronic heart failure exacerbation. Patient discharged to home. Son no longer at bedside while evaluating patient. Patient cried in pain when touching bilateral feet. Patient rolling head in pain, with near flaccid forward flexion. Labs consistent with volume overload. #Acute on Chronic Heart failure with reduced EF #Ischemic Cardiomyopathy s/p [facility] 2019, diffuse CAD #Recurrent angina history #Elevated Troponin, possibly demand ischemia iso tachycardia/acute illness/HF exacerbation 12/29/2023 revealed severe hypokinesis to akinesis of the basal and mid inferior wall and inferoseptum with [id number]-[id number] diffuse hypokinesis noted otherwise, LVEF 35-40%. Moderate to severe mitral regurgitation observed as well as tricuspid regurgitation and a moderate-sized left pleural effusion BNP: 1097 Troponin: 138-->125--> 200 (H/O elevated troponins during prior admissions in similar range) CXR: Interval progression of the pulmonary edema with small bilateral pleural effusions EKG: appears to be sinus tachycardia, remains sinus tachy at this time In ER given 40 mg Lasix IV, received additional lasix this am However given uptrending lactic acidosis will hold Monitor I's and O's, daily weights Monitor on telemetry Cardiology consult, will appreciate recs #Acute metabolic encephalopathy, likely multifactorial #MELAS #Elevated lactic acidosis #Prior left MCA infarction In ER T: 34.3 C rectal, P: 119, BP 109/94, 96% on room air. Upon reassessment T: 35.8 C rectally with Sumit hugger on. P: 117, BP 126/83, R: 20, 96% on room air Lactate: 6.6-->4.9-->7.9 CT Head: no acute intracranial abnormality UA: ?possible UTI vs contamination Urine culture pending Blood cultures pending Trend lactate Unclear if lactate elevated from MELAS, CHF or underlying infection Continue empiric coverage at this time -MRSA nare ordered Monitor for delirium Neurology consult for guidance on MELAS optimization -TSH WNL -B12, folate for am #Transaminitis -Downtrending, potentially congestive v related to ?infection -Repeat CMP in am -No localizing symptoms #Anion Gap Metabolic acidosis -likely with elevated lactic acid, though improving -Trend lactate, treat ?infection and HF #Acute thrombus in right tibial vein, DVT #BLE foot wounds with signs of venous insufficiency -Heparin drip in interim -Wound consult -ESR 5, CRP 2.45 -Broad coverage empirically while infectious work up pends #Small bilateral pleural effusions -recent thoracentesis on 01/01/2024, no large accumulations that seem warranting procedure -monitor fluid status and oxygenation #Mechanical Fall #Ambulatory dysfunction #Elevated CK Unwitnessed fall reported today. Reported progressive difficulty with ambulation CT head no acute intracranial abnormality C-spine CT: No acute cervical fracture Fall precautions PT/OT consult CK <500 on admission and no PADMA, will repeat--again could be 2/2 underlying MELAS, but will ensure fluids if concern for uptrend/rhabdo component #Hyperglycemia #DM I A1c: 8.2 on 01/09/2024 Unclear if patient has been giving herself insulin at home recently Glucose 371 in ER. VBG pH WNL Start insulin drip for hyperglycemia (no signs of DKA this time) Transition as able, glycemic concsult DVT Prophylaxis Lovenox SQ Admission and Anticipated Discharge Date Admission Date: February 21, 2024 Subjective Patient evaluated at bedside, more lucid today and trying to make sentences but difficult to parse out context, seems delirious; however, making more direct eye contact and trying to communicate which is different from day prior Does not answer direct questioning, but is holding head more upright with less flacid movements Review of Systems Review of Systems: Unobtainable due to cognitive status Physical Exam Constitutional: seems distress, but less so than day prior--piecing together phrases, though u nclear if aphasia is worsened or if baseline (however will assume still encephalopathic given patient lives home alone) Respiratory: diminished bilaterally Cardiovascular: JOSE, tachycardic Results & Data Results & Data Vital Signs (Past 12 Hours) Vital Signs Temp Pulse Pulse Resp BP BP Pulse Ox 02/22/24 00:55 36.3 C L 115 H 20 118/73 02/21/24 21:56 117 H 02/21/24 21:22 02/21/24 21:22 36.6 C 120 H 18 115/67 95 02/21/24 20:59 119 H 02/21/24 20:59 02/21/24 20:54 02/21/24 20:22 117 H Pulse Ox O2 Del Method O2 Del Method 02/22/24 00:55 Room Air 02/21/24 21:56 02/21/24 21:22 Room Air 02/21/24 21:22 Room Air 02/21/24 20:59 02/21/24 20:59 95 Room Air 02/21/24 20:54 Room Air 02/21/24 20:22 Laboratory Results Short CBC 02/21/24 02/22/24 02/22/24 Range/Units 15:16 01:01 06:59 WBC 9.94 9.37 9.27 (4.8-10.8) K/ul Hgb 14.4 13.6 13.0 (12.0-16.0) g/dl Hct 44.0 41.5 39.2 (37.0-47.0) % Plt Count 192 179 163 (130-400) K/uL BMP 02/21/24 02/21/24 02/22/24 15:16 23:12 06:59 Sodium 132 L 133 L 137 Potassium 3.8 3.7 3.1 L Chloride 89 L 91 L 93 L Carbon Dioxide BUN 68 H 68 H 60 H Creatinine 1.07 1.09 1.02 Glucose 371 H* 369 H* 126 H Calcium 9.4 8.9 8.8 Cardiac Enzymes 02/21/24 Range/Units 15:16 Total Creatine Kinase 461 H (26-192) U/L Liver Function 02/21/24 02/22/24 Range/Units 15:16 06:59 Total Bilirubin 2.1 H 1.0 D (0.2-1.0) mg/dl AST 79 H 56 H (13-39) U/L ALT 60 H 49 (7-52) U/L Alkaline Phosphatase 87 67 (34-104) U/L Albumin 3.7 3.2 L (3.4-5.0) gm/dl Urine 02/21/24 Range/Units 17:10 Urine Color Dark Yellow Urine Appearance Clear (Clear) Urine pH 5.0 (4.5-7.5) Ur Specific [place] 1.024 (1.000-1.030) Urine Protein 2+ H (Negative) Urine Glucose (UA) 3+ H (Negative) Medications Administered Home Medications Medication Instructions Recorded Confirmed Last Taken vit A 12,500 unit-zinc 12.5 1 cap PO QAM 05/14/20 02/21/24 07/14/23 yl-vwusqg-jdnif-bilberry-herb #261 capsule (Lipotriad Vision Support) aspirin 81 mg tablet,delayed 81 mg PO QAM #90 tabs 05/17/20 02/21/24 07/14/23 release nitroglycerin 0.4 mg sublingual 0.4 mg sublingual UD PRN chest 05/17/20 02/21/24 Unknown tablet (Nitrostat) pain #30 tabs evolocumab 140 mg/mL subcutaneous 140 mg subcut .[id number] 08/10/21 02/21/24 07/10/23 pen injector (Jaiem Nicholson) coenzyme Q10 100 mg capsule 100 mg PO DAILY 01/14/22 02/21/24 07/14/23 (CoQ-10) furosemide 40 mg tablet (Lasix) 40 mg PO DAILY #30 tabs 01/12/24 02/21/24 Unknown insulin aspart U-100 100 unit/mL 3 unit (0.03 mL) subcut TIDM #15 mL 01/12/24 02/21/24 07/14/23 (3 mL) subcutaneous pen (Novolog FlexPen U-100 Insulin aspart) insulin glargine 100 unit/mL (3 15 unit (0.15 mL) subcut HS #15 mL 01/12/24 02/21/24 07/14/23 mL) subcutaneous pen (Lantus Solostar U-100 Insulin) metoprolol succinate 25 mg 25 mg PO BID #60 tabs 01/12/24 02/21/24 Unknown tablet,extended release 24 hr Active Medications Generic Name Dose Route Start Last Admin Trade Name Jessie PRN Reason Stop Dose Admin Furosemide 40 mg 02/21/24 21:10 02/22/24 06:14 Furosemide 40 Mg/4 Ml Vial IV 03/22/24 21:09 40 mg TID@0600,1200,1700 CLEMENTINA Administration Piperacillin Sod/Tazobactam 100 mls @ 25 mls/hr 02/22/24 04:00 02/22/24 04:16 Sod 4.5 gm/ Dextrose IV 02/24/24 03:59 25 mls/hr Q8H CLEMENTINA Administration Protocol Insulin Human Regular 250 250 mls @ 1.6 mls/hr 02/21/24 20:59 02/22/24 05:47 units/ Sodium Chloride IV 03/22/24 20:58 1.6 units/hr .Q24H CLEMENTINA 1.6 mls/hr Titration Protocol 1.6 UNITS/HR Heparin Sodium/Dextrose 25,000 units in 500 mls @ 19 mls/hr 02/22/24 00:30 02/22/24 01:08 Heparin Sodium/Dextrose IV 03/23/24 00:29 950 units/hr .Q24H CLEMENTINA 19 mls/hr Administration Protocol 950 UNITS/HR Insulin Aspart 0 units 02/21/24 21:00 02/21/24 23:05 Insulin Aspart Per Unit Charge SC 03/22/24 20:59 Not Given ACHS [facility]
[2024-02-22] MEDS ORDERED: PHARMACY GLYCEMIC MGMT CONSULT PRN (08:12)
[2024-02-22] MEDS: METOPROLOL SUCC 25MG EXT REL TAB PO SCH (09:10)
[2024-02-22] MEDS: ASPIRIN 81 MG ECTAB PO SCH (09:10)
[2024-02-22] MEDS: VANCOMYCIN HCL 1,000 MG in SODIUM CHLORIDE 0.9% 250 ML IV SCH (09:15)
[2024-02-22] MEDS ORDERED: LANTUS PER UNIT CHARGE SC ONE (09:15)
--- OUTSIDE RECORDS SUMMARY | 2024-02-22 09:33 | External Medical Summary | Summary of Care ---
Author Name Unknown Organization [facility] Address [address] [place] [address] Phone [phone] Care Team Providers Care Overhead Distribution Engineer Name Role Phone Amairani Cervantes MD Primary Care Prov ider Reason for Visit * Reason Onset Date Comments Medication Refill 02/21/2024 case management 02/21/2024 Encounter Details Date Type Department Care Team (Late st Contact Info) Description 02/21/2024 Refill Family Medicine [address] [place] [phone] Amairani Cervantes MD [address] [place] [address] [place] [id number] Need for case management follow-up* Allergies Active Allergy Reactions Criticality Noted Date Comments Atorvastatin Other (Please comment) 05/17/2014 Myalgias, dysarthria Prednisone Other (Please comment) 04/13/2013 Metabolic-hyperglycemia documented as of this encounter (statuses as of 02/21/2024) Medications Medication Sig Dispensed Refills Start Date [...] mellitus with hemoglobin A1c goal of 7.0%-8.0% ([facility]) USE TO TEST BLOOD SUGAR 4 [...] the skin at bedtime. 0 01/12/2024 Active Furosemide 40 MG [...] a day with meals.. 0 02/04/2024 Active Furosemide 40 MG Oral Tablet (Lasix) Take 1 Tablet by mouth in the morning. 90 Tablet 3 02/21/2024 Active Metoprolol Succinate ER 25 MG Oral Tablet Extended Release 24 Hour (toPROL XL) Take 1 Tablet by mouth in the morning and 1 Tablet before bedtime. 180 Tablet 3 02/21/2024 Active Metoprolol Succinate ER 25 MG Oral Tablet Extended Release 24 Hour (toPROL XL) Take 1 Tablet by mouth in the morning and 1 Tablet before bedtime. 0 01/12/2024 Discontinue d(Refill) documented as of this encounter (statuses as of 02/21/2024) Active Problems Problem Noted Date Diagnosed Date Hemiplegia and hemiparesis f ollowing cerebral infarction affecting left non-dominant side 02/04/2024 Type 1 diabetes mellitus with diabetic polyneuro solange 02/04/2024 Atherosclerotic heart diseas e of [place] coronary artery with other forms of angina pectoris 02/04/2024 Chronic systolic heart failure 02/04/[address] 09/06/2022 Aphasia, post-stroke 03/23/2022 Hemiplegia, post-stroke 03/23/2022 Receptive aphasia 02/15/2022 History of CA (myocardial infarction) 12/15/2020 S/P coronary artery stent [...] Lipid Taxonomy. Coronary artery disease invo lving [place] coronary artery of [place] heart without angina pectoris 08/11/2009 Chronic otitis externa 06/02/2008 ADVANCE DIRECTIVE INFORMATION 04/22/2007 Overview: No, Advance Directive brochure given to patient at prior appointment. Meniere's disease of both ears Sensorineural hearing loss, bilateral Temporomandibular joint disorders, unspecified Degeneration of cervical intervertebral disc Schatzki's ring documented as of this encounter (statuses as of 02/21/2024) Resolved Problems Problem Noted Date Diagnosed Date [...] for Patients with Cardiovascular Disease Project # [id number] PI: Selina Robert MD Please call [phone] with study related questions GENOMICS CARDIO RESEARCH OTHER*[id number] 08/15/2009 01/01/2017 Overview: Renamed Per Clinical Trials Billing Project. Study Titile: Genomics Markers for Patients with Cardiovascular Disease Project # [id number] PI: Selina Robert MD Please call [phone] with study related questions Abnormal electrocardiogram 07/20/2009 [...] as of this encounter (statuses as of 02/21/2024) Immunizations Name Administration Dates Next Due DTaP Dipth/Tet/Acell Pertussis (Infanrix), Peds 08/16/2021 Hepatitis B, 20+ yrs 12/14/2014,07/06/2014,05/17 Pneumococcal Conjugate Vacc, 13 Valent (Prevnar) 08/16/2017 Pneumococcal Conjugate Vacci ne, 20-valent ([id number]) 10/30/2022 Pneumococcal Polysaccharide PPV23 (Pneumovax) 07/17/2006 Seasonal [...] Miscellaneous Notes * Telephone Encounter - Amairani Cervantes MD - 02/21/2024 1:17 PM EDT Signed Prescriptions: Disp Refills Furosemide 40 MG Oral Tablet (Lasix) 90 Tab*3 Sig: Take 1 Tablet by mouth in the morning. Authorizing Provider: AMAIRANI CERVANTES Metoprolol Succinate ER 25 MG Oral Tablet *180 Ta*3 Sig: Take 1 Tablet by mouth in the morning and 1 Tablet before bedtime. Authorizing Provider: AMAIRANI CERVANTES ------- * Telephone Encounter - Shelly Lo RN - 02/21/2024 12:43 PM EDT Did you pend patient's preferred pharmacy and medication before forwarding?yes Pharmacy: [facility] Pending Prescriptions: Disp Refills Furosemide 40 MG Oral Tablet (Lasix) 90 Tab*3 Sig: Take 1 Tablet by mouth in the morning. Metoprolol Succinate ER 25 MG Oral Tablet*180 Ta*3 Sig: Take 1 Tablet by mouth in the morning and 1 Tablet before bedtime. Last Visit: 02/04/2024 (in office), Visit date not found (telemedicine) Next Visit: 09/02/2024 If no future appointments scheduled, and last appointment is greater than a year ago, please schedule patient for a follow-up appointment Last date the medication was ordered: 01/12/24 Is this request for a controlled substance?No Urine Drug Screen:No results found. However, due to the size of the patient record, not all encounters were searched. Please check Results Review for a complete set of results. Patient Phone Numbers Labs: Lab Results Component Value Date/Time CREAT 0.8 01/27/2024 12:17 PM CREAT 0.64 01/19/2022 12:00 AM CREAT 0.8 12/05/2020 10:58 AM POTASSIUM 3.8 01/27/2024 12:17 PM POTASSIUM 4.1 01/19/2022 12:00 AM POTASSIUM 4.8 12/05/2020 10:58 AM TSH 1.920 01/28/2018 12:00 AM TSH 1.53 02/21/2015 03:28 PM LDLCALC 91 06/24/2023 09:38 AM LDLCALC 131 (H) 12/23/2019 02:24 PM LDLDIRECT 83 10/31/2022 09:18 AM LDLDIRECT NOT APPLICABLE 12/23/2019 02:24 PM LDLDIRECT 166 (H) 04/12/2017 02:16 PM ALT 28 01/27/2024 12:17 PM ALT 12 12/05/2020 10:58 AM HGBA1C 7.5 (H) 10/31/2022 09:18 AM HGBA1C 7.7 (H) 06/01/2020 09:05 AM documented in this encounter Plan of Treatment Upcoming Encounters Date Type Department Care Team (Late st Contact Info) Description 03/04/2024 10:15 AM EDT Office Visit Otolaryngology/Head & Neck/Facial Plastic Surgery [address] [place] [address] Tonny Joshua MD [address] [place] [address] 03/05/2024 3:00 PM EDT Office Visit Cardiology, [facility] [address] [facility] [place] [address] Quynh Marrero [facility]C [facility] [address] 03/17/2024 1:20 PM EDT Office Visit Neurology [facility] [address] [facility] [place] [address] Jennifer Oviedo PA-C [address] [facility] [place] [address] 09/02/2024 3:10 PM EDT Office Visit Family Medicine [address] [place] [phone] [place] [address] Scheduled Procedures Name Priority Associated Diagnoses Date/Ti [...] this encounter Medical Devices Implanted Type Area Night Clerk Auditor Device Identifier Shelf Expiration Date Model / Serial / Lot Nucleus [id number] Cochlear Implant With Contour Advance Electrode Implanted:Qty: 1 on 10/04/2015 by Tonny Joshua MD at [facility] Left: Ear [employer] 06/14/2017 [id number] / [id number] / Description:[id number] documented as of this encounter Visit Diagnoses Diagnosis Need for case management follow-up- Primary documented in this encounter Advance Directives [...] the patient have Health Care Power of Manager Of Disaster Recovery? No Care Teams Overhead Distribution Engineer Relationship Specialty Start Date End Date Amairani Cervantes MD [address] [place] [address] [place] [address] PCP - General Family Medicine 12/23/19 documented as of this encounter
--- NOTE | 2024-02-22 10:14 | Neurology Consultation ---
Date of Consultation February 22, 2024 Assessment & Plan (1) Encephalopathy: A 68 year old female with poorly controlled IDDM with diabetic neuropathy, prior left MCA ischemic stroke on ASA and MELAS admitted with encephalopathy / adult failure to thrive. Bood sugars elevated on arrival w elevated lactate and found to be in heart failure. Possible mild UTI. CT head reviewed and limited due to artifact but no large sign of cerebral stroke or hemorrhage. Overall given her age and co-morbidities I feel MELAS is unlikely contributing largely to her current clinical picture. Agree this is likely multifactorial with superimposed delirium. Would continue home ASA and co-ezyme Q10 supplement. Neurology would recommend follow up CT head in 24-hours from prior. History of Present Illness Reason for Consultation: Encephalopathy Requesting Physician: Karen Cruz MD Attending Physician: Karen Cruz MD History of Present Illness A 68-year-old female previously seen by myself in 2021 (admitted for left MCA ischemic stroke) and once prior in clinic in 2019 admitted yesterday for altered mental status. She has a past medical history of MELAS, on aspirin, coronary artery disease, previously on Plavix as well, sensorineural hearing loss, status post cochlear implant, insulin-dependent diabetes, Meniere's disease and hypertension. Patient is currently altered and not following commands. She is non verbal. Moving head side to side and moving upper extremities spontaneously, L>R. Allergies Allergy/AdvReac Type Severity Reaction Status Date / Time atorvastatin AdvReac Intermediate myalgias, Verified 01/08/24 21:34 dysarthria prednisone AdvReac Intermediate metabolic-h Verified 01/08/24 21:34 yperglycemi a Home Medications Medication Instructions Recorded Confirmed Type vit A 12,500 unit-zinc 12.5 1 cap PO QAM 05/14/20 02/21/24 History wh-xkoeck-qiflr-bilberry-herb #261 capsule ([employer] Support) aspirin 81 mg tablet,delayed 81 mg PO QAM #90 tabs 05/17/20 02/21/24 Rx release nitroglycerin 0.4 mg sublingual 0.4 mg sublingual UD PRN chest 05/17/20 02/21/24 Rx tablet (Nitrostat) pain #30 tabs evolocumab 140 mg/mL subcutaneous 140 mg subcut .[id number] 08/10/21 02/21/24 History pen injector (Repatha SureClick) coenzyme Q10 100 mg capsule 100 mg PO DAILY 01/14/22 02/21/24 History (CoQ-10) furosemide 40 mg tablet (Lasix) 40 mg PO DAILY #30 tabs 01/12/24 02/21/24 Rx insulin aspart U-100 100 unit/mL 3 unit (0.03 mL) subcut TIDM #15 mL 01/12/24 02/21/24 Rx (3 mL) subcutaneous pen (Novolog FlexPen U-100 Insulin aspart) insulin glargine 100 unit/mL (3 15 unit (0.15 mL) subcut HS #15 mL 01/12/24 02/21/24 Rx mL) subcutaneous pen (Lantus Solostar U-100 Insulin) metoprolol succinate 25 mg 25 mg PO BID #60 tabs 01/12/24 02/21/24 Rx tablet,extended release 24 hr Patient History Medical History Bilateral pleural effusion Unspecified hereditary retinal dystrophy Bilateral sensorineural hearing loss Bilateral myopia 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 Degeneration of cervical intervertebral disc History of TMJ disorder Hemiplegia Diabetic polyneuropathy Aphasia as late effect of cerebrovascular accident CAD (coronary artery disease) Statin intolerance Atherosclerosis of coronary artery Macular degeneration Mnire's disease Schatzki's ring MELAS (mitochondrial encephalopathy, lactic acidosis and stroke-like episodes) HLD (hyperlipidemia) Type 1 diabetes mellitus Hypertension Surgical History S/P coronary artery stent placement History of heart artery stent History of cochlear implant Left in 2014 History of left heart catheterization 07/2019 which revealed 30% proximal LAD otherwise clean coronaries History of colonoscopy with polypectomy History of cholecystectomy History of hysterectomy Family History Mother Coronary heart disease, Onset Age: 70 Father Coronary heart disease, Onset Age: 50 Daughter MELAS (mitochondrial encephalopathy, lactic acidosis and stroke-like episodes) Social History Smoking Status: Never smoker Tobacco Type: Cigarettes Second Hand Exposure: No; Do You Dip or Chew Tobacco: No; Hx Alcohol Use: No Hx Substance Use: No Preferred Language: Romansh Communication Ability: Impaired Communication Ability Comment: Cochlear implant, communication difficult at times Hearing Ability: Cochlear Implant Radiologist Physician Required: No Beliefs That Will Affect Care: None marital status: Current Living Situation: Family Current Living Situation Comment: with son Lee current occupational status: retired and disabled How many Children do You have: 2 Other Information That Helps Us Care for You: No Feels Safe at Home: Yes Safety Concerns: Feels Safe At This Time Assistive Devices: Cane, Glasses and Other Assistive Devices Comment: Chochlar implant Physical Exam Physical Exam: Patient seen on televideo. Awake. Thin appearing female moving her head side to side and looking down. Moving both upper extremities and hands spontaneously but not following commands. Face appears symmetric. Non verbal. Not following simple commands. No myoclonus seen. Results & Data Vital Signs (Past 12 Hours) Vital Signs Temp Pulse Resp BP Pulse Ox O2 Del Method 02/22/24 08:19 36.2 C L 103 H 20 103/68 97 Room Air 02/22/24 00:55 36.3 C L 115 H 20 118/73 Room Air Diagnostic Findings COMPARISON STUDY: CT of the brain dated 07/23/2022. TECHNIQUE: Unenhanced axial CT scan of the brain is performed from the vertex to the skull base. A dose lowering technique was utilized adhering to the principles of ALARA. There is streak artifact from electronic device along the left posterior convexity. There is also mild motion artifact. CT DOSE: 1075.27 mGy.cm FINDINGS: Brain parenchyma: There is age-advanced involutional change noting moderate confluent subcortical and periventricular microangiopathic disease. There is no hemorrhage, mass effect, or evidence of acute territorial ischemia by CT criteria. Mineralization is noted in the basal ganglia. A focus of left temporal encephalomalacia is consistent with a remote insult. Alcantara-white matter differentiation is preserved. No extra-axial fluid collection is seen. Ventricles, sulci, cisterns: Prominent secondary to involutional change. Intracranial vasculature: There is atherosclerotic calcification of the cavernous carotid and vertebral artery. Calvarium: Unremarkable. Sinuses and mastoids: The visualized paranasal sinuses are clear. There is postoperative change seen in left mastoid air cells with a left mastoid effusion. The right mastoid air cells are well pneumatized. Orbits: The bony orbits are grossly intact. IMPRESSION: There is no hemorrhage, mass effect, or evidence of acute territorial ischemia by CT criteria.
[2024-02-22] MEDS ORDERED: GLUCOSE 10 TAB/TUBE PO PRN (10:15)
[2024-02-22] MEDS ORDERED: GLUCAGON FOR INJ 1 MG VIAL IM PRN (10:15)
[2024-02-22] MEDS ORDERED: GLUCOSE 40% GEL 15 GM TUBE PO PRN (10:15)
[2024-02-22] MEDS: DEXTROSE 50% 50 ML SYRINGE IV PRN (10:19)
[2024-02-22] MEDS: ACETAMINOPHEN 1,000 MG/100 ML VIAL IV SCH (10:25)
[2024-02-22] MEDS: LANTUS PER UNIT CHARGE SC ONE ×2 (10:44→21:19)
[2024-02-22] MEDS: POTASSIUM CHLORIDE / WTR 10 MEQ/100 ML PLCT IV SCH (10:45)
[2024-02-22] MEDS: INSULIN ASPART PER UNIT CHARGE SC SCH (12:37)
[2024-02-22] MEDS: METOPROLOL TARTRATE 1 MG/ML VIAL IV SCH (12:39)
[2024-02-22 14:01] LABS: BUN Creatinine Ratio 55.1 (10-20); Calcium 8.3 mg/dl (8.6-10.3); Creatinine Clr Calc Pharmacy 45.7 ml/min; Est GFR (African American) 69.2 ml/min; Est GFR (Non-African American) 59.7 ml/min; Potassium 3.2 mmol/L (3.5-5.1)
--- NOTE | 2024-02-22 14:38 | Pharmacy Report ---
Pharmacy Glycemic Short Note 2 - Date of Service February 22, 2024 - Glycemic Short BSG Results (Last 24 hours): 02/21/24 02/21/24 02/21/24 15:00 15:16 15:17 Glucose 371 H* POC Glucose 78 347 H* 02/21/24 02/21/24 02/21/24 20:15 21:13 23:03 Glucose POC Glucose 371 H* 373 H* 344 H* 02/21/24 02/22/24 02/22/24 23:12 00:07 01:02 Glucose 369 H* POC Glucose 316 H* 304 H* 02/22/24 02/22/24 02/22/24 01:59 03:12 04:03 Glucose POC Glucose 275 H 242 H 210 H 02/22/24 02/22/24 02/22/24 05:43 06:45 06:59 Glucose 126 H POC Glucose 160 H 139 H 02/22/24 02/22/24 02/22/24 08:47 10:02 10:31 Glucose POC Glucose 94 69 L* 201 H 02/22/24 02/22/24 02/22/24 11:07 11:58 13:03 Glucose 147 H POC Glucose 140 H 125 H OUTPATIENT ANTIDIABETIC REGIMEN: * Lantus 15 units SC HS * Novolog 3 units SC TIDM HbA1c: 8.2% (01/09/24) ASSESSMENT: * CD is a 68 year old female w/ T1DM, admitted for acute/chronic HFrEF (likely related to medication non-compliance) * Patient w/ elevated anion gap (19) and hyperglycemia (BSG >300 mg/dL), but serum bicarbonate and VBG pH WNL - not believed to be DKA * Insulin infusion initiated for hyperglycemia - blood sugars trended down nicely on gtt w/ mild hypoglycemia late morning (69 mg/dL) * Diet initiated and insulin gtt transitioned to SC basal/bolus * Prior admission data suggests that patient is prone to hypoglycemia - will be conservative to start PLAN FOR INPATIENT GLYCEMIC CONTROL: * Hold outpatient oral diabetes medications * Basal insulin * Lantus 8 units SC x 1 initially to transition insulin infusion (NPO at time, now ordered diet) * Lantus 0-3-5 units SC HS x 1 * If fasting BSG elevated tomorrow - consider increasing to home dose of 15 units SC daily * Bolus insulin * NovoLog per scale ACHS or Q6hrs while NPO * Goal Range: Low 120 mg/dL - High 150 mg/dL * Correction Factor: 40 mg/dL/unit * Nutritional / Prandial insulin per carb ratio of 1 unit per 20 grams CHO consumed
--- NOTE | 2024-02-22 15:48 | XRay Report ---
RIGHT FOOT 2 VIEWS CLINICAL HISTORY: Fall. Right foot pain. Swelling. FINDINGS: AP and lateral views of the right foot are compared to study dated 05/07/2023. The skeletal structures are osteopenic. No fracture is seen. Mild osteoarthritic change is seen throughout the lou t, greatest at the first metatarsophalangeal joint. There are dorsal and plantar heel spurs. Mild sof t tissue swelling is noted. Question a small wound along the dorsum of the forefoot on the lateral pr ojection. No radiodense foreign body is seen. There is atherosclerotic calcification of the regional arteries. IMPRESSION: 1. Soft tissue swelling with no acute bony abnormality identified. 2. Question a small wound/ulcer along the dorsal aspect of the forefoot. Correlate clinically. Electronically signed by: Wilbert Lee M.D. 02/22/2024 3:46 PM
[2024-02-22 16:27] LABS: A calco-baum cmplx NotReported Not Detected (NotDetected); Bact fragilis Not Reported Not Detected (NotDetected); Blood Culture Id Panel See PCR Comment (NotDetected); C auris Not Reported Not Detected (NotDetected); Calbicans Not Reported Not Detected (NotDetected); Candida glabrata Not Reported Not Detected (NotDetected); Candida krusei Not Reported Not Detected (NotDetected); Cneoformans/gatti Not Reported Not Detected (NotDetected); Cparapsilosis Not Reported Not Detected (NotDetected); E cloacae compx Not Reported Not Detected (NotDetected); Efaecalis Not Reported Not Detected (NotDetected); Efaecium Not Reported Not Detected (NotDetected); Enterobacterales Not Reported Not Detected (NotDetected); Escherichia coli Not Reported Not Detected (NotDetected); H influenzae Not Reported Not Detected (NotDetected); K aerogenes Not Reported Not Detected (NotDetected); Koxytoca Not Reported Not Detected (NotDetected); Kpneumoniae grp Not Reported Not Detected (NotDetected); Lmonocyt Not Reported Not Detected (NotDetected); N meningitidis Not Reported Not Detected (NotDetected); P aeruginosa Not Reported Not Detected (NotDetected); Proteus spp Not Reported Not Detected (NotDetected); Salmonella spp Not Reported Not Detected (NotDetected); Smarcescens Not Reported Not Detected (NotDetected); Staph lugdunensis Not Reported Not Detected (NotDetected); Staph spp. Not Reported DETECTED (NotDetected); Staphaureus Not Reported Not Detected (NotDetected); Staphepi Not Reported DETECTED (NotDetected); Staphylococcus epidermidis DETECTED (NotDetected); Staphylococcus spp. DETECTED (NotDetected); Stenmaltophilia Not Reported Not Detected (NotDetected); Strep agal(GrpB) Not Reported Not Detected (NotDetected); Strep pneum Not Reported Not Detected (NotDetected); Strep pyog (GrpA) Not Reported Not Detected (NotDetected); Strep spp Not Reported Not Detected (NotDetected); mecAC Resistant Gene Not Detected (NotDetected)
--- NOTE | 2024-02-22 16:43 | CT Scan Report ---
CT SCAN OF THE BRAIN WITHOUT IV CONTRAST CLINICAL HISTORY: Encephalopathy. COMPARISON STUDY: CT of the brain dated 02/21/2024. TECHNIQUE: Unenhanced axial CT scan of the brain is performed from the vertex to the skull base. A do se lowering technique was utilized adhering to the principles of ALARA. There is streak artifact from an electronic device along the left posterior convexity. There is also mild motion artifact. CT DOSE: 547.75 mGy.cm FINDINGS: Brain parenchyma: There is age-advanced involutional change noting moderate confluent subcortical and periventricular microangiopathic disease. There is no hemorrhage, mass effect, or evidence of acute territorial ischemia by CT criteria. Mineralization is noted in the basal ganglia. A focus of left te mporal encephalomalacia is consistent with a remote insult. Alcantara-white matter differentiation is pres erved. No extra-axial fluid collection is seen. Ventricles, sulci, cisterns: Prominent secondary to involutional change. Intracranial vasculature: There is atherosclerotic calcification of the cavernous carotid and vertebr al artery. Calvarium: Unremarkable. Sinuses and mastoids: The visualized paranasal sinuses are clear. There is postoperative change seen in left mastoid air cells with a left mastoid effusion. The right mastoid air cells are well pneumati zed. Orbits: The bony orbits are grossly intact. IMPRESSION: There is no hemorrhage, mass effect, or evidence of acute territorial ischemia by CT ed bui. ACT 112: Negative or not required by law. Electronically signed by: Wilbert Lee M.D. 02/22/2024 4:42 PM
[2024-02-22] MEDS: POTASSIUM CHLORIDE CRTAB 20 MEQ TABCR PO STA (20:51)
[2024-02-23 06:27] LABS: Hematocrit (blood only) 38.1 % (37.0-47.0); Hemoglobin 12.6 g/dl (12.0-16.0); Mean Corpuscular Hemoglobin 25.3 pg (25.0-34.0); Mean Corpuscular Hgb Conc 33.1 g/dL (32.0-36.0); Mean Corpuscular Volume 76.5 fL (80.0-100.0); Mean Platelet Volume 12.2 fL (9.4-12.4); Platelet Count 144 K/uL (130-400); RDW Coefficient of Variation 16.9 % (11.5-14.5); RDW Standard Deviation 44.5 fL (36.4-46.3); Red Blood Count 4.98 M/uL (4.20-5.40); White Blood Count 9.16 K/ul (4.8-10.8)
--- NOTE | 2024-02-23 06:56 | Cardiology Progress Note ---
Date of Service February 23, 2024 Assessment & Plan (1) Acute on chronic heart failure with reduced ejection fraction and diastolic dysfunction: (2) Bilateral pleural effusion: (3) Elevated troponin: (4) CAD (coronary artery disease): (5) MELAS (mitochondrial encephalopathy, lactic acidosis and stroke-like episodes): Plan IMPRESSION: Medically complex 68-year-old female admitted due to a fall but found to be in acute on chronic heart failure. Last LVEF of 35% per inpatient echo 12/2023. Chest x-ray with pleural effusion PLAN: Acute on chronic HFrEF: Volume status appears well compensated. Diuretics currently on hold due to rising lactate per primary service. Strict I's and O's. Daily weights. 2 g sodium diet. Monitor renal function. Replace potassium to a goal of 4.0 and mag of 2.0. Elevated troponin: Troponin: 138-->125 (H/O elevated troponins during prior admissions in similar range). EKG without ischemic changes. Low likelihood for ACS. Sinus Tach: Patient now eating and drinking--agree with resuming oral metoprolol, currently taking 25 mg twice daily. Room to titrate if needed Case discussed with Dr. Cabral. Further recommendations pending their assessm ent. I spent a total of 40 minutes on the date of service in preparation, delivery, and documentation of the care provided to the patient excluding any time spent in the performance of separately billed services. MASOOD Ochoa Department of Cardiology, [facility] This chart was completed in part utilizing Speech Voice Recognition Software. Grammatical errors, random word insertions, pronoun errors, and incomplete sentences are an occasional consequence of this system due to software limitations, ambient noise, and hardware issues. Any formal questions or concerns about the content, text, or information contained within the body of this dictation should be directly addressed to the provider for clarification. Admission and Anticipated Discharge Date Admission Date: February 21, 2024 Supervising Physician Co-Signing Physician Notes Patient was seen and personally examined. Full assessment and plan as outlined above. Case and care discussed in detail with advanced provider, agree with plan and take full responsibility I spent a total of 20 minutes on the date of service in preparation, delivery, and documentation of the care provided to the patient excluding any time spent in the performance of separately billed services. 68-year-old female with complex history with prior hospitalizations in recent past presenting once again with acute on chronic systolic heart failure. Possible medication noncompliance or lapse Currently tachycardic this morning IV metoprolol recommended until able to take p.o. 02/23/2024 Patient appears improved this morning. Heart rates trending better with IV metoprolol. Troponin elevated secondary to demand issues with elevated heart rate Would resume oral metoprolol Exam not consistent with congestive heart failure this morning Would recommend supplementing potassium and magnesium as above Contact with any further question Subjective Medically complex 68-year-old female admitted due to a fall but found to be in acute on chronic heart failure. Last LVEF of 35% per inpatient echo 12/2023. 02/22/2024: Hyperkalemia noted in the setting of medication noncompliance at home. He was receiving IV Lasix 40 mg 3 times daily however due to rising lactate level diuretics were placed on hold. Ongoing sinus tachycardia--patient has been unable to take oral pills due to mentation. Transition to IV Lopressor 2.5 mg every 4 hours. 02/23/2024: Telemetry: SR/ST 90- low 100s I/O: +633mL Weight: 58.4 kg >> 58.2 kg (prior discharge weight was 55.6 kg) Labs: Pending Upon entrance into the room patient sitting up in bed drinking water. Review of systems is limited due to cognitive status. She is not in any acute distress. She does not verbalize any acute concerns. Review of Systems Review of Systems: Unobtainable due to cognitive status Physical Exam Constitutional: + ill appearing (chronically ill) and + cachectic; no acute distress Neck: normal visual inspection and trachea midline Respiratory: normal respiratory effort; no respiratory distress Auscultation: no rales, no rhonchi and no wheezes Cardiovascular: Rate/Rhythm: regular rhythm and + tachycardic Heart Sounds: normal S1, normal S2 and + murmur Vessels: no JVD Extremities: + edema (t race BLLE pitting edema ) Gastrointestinal (Abdomen): normal bowel sounds, soft, nontender, no hepatosplenomegaly Psychiatric: Orientation: alert; + not oriented to person, + not oriented to place and + not oriented to time Results & Data Vital Signs (Past 12 Hours) Vital Signs Temp Pulse Pulse Resp BP Pulse Ox O2 Del Method 02/23/24 03:45 36.3 C L 98 H 18 111/74 97 Room Air 02/22/24 23:55 36.4 C L 96 H 16 102/69 99 Room Air 02/22/24 21:56 95 H 02/22/24 20:47 36.4 C L 84 19 90/55 L 95 Room Air Laboratory Results Cardiac Enzymes 02/23/24 Range/Units 05:32 AST 45 H (13-39) U/L CBC 02/23/24 Range/Units 05:32 WBC 9.16 (4.8-10.8) K/ul RBC 4.98 (4.20-5.40) M/uL Hgb 12.6 (12.0-16.0) g/dl Hct 38.1 (37.0-47.0) % Plt Count 144 (130-400) K/uL Comprehensive Metabolic Panel 02/22/24 02/23/24 Range/Units 13:03 05:32 Sodium 136 136 (136-145) mmol/L Potassium 3.2 L 3.2 L (3.5-5.1) mmol/L Chloride 91 L 93 L (98-107) mmol/L Carbon Dioxide 33 H 32 (21-32) mmol/L BUN 54 H 51 H (6-23) mg/dl Creatinine 0.98 0.86 (0.6-1.2) mg/dl Glucose 147 H 124 H (70-99(Fasting)) mg/dl Calcium 8.3 L 8.1 L (8.6-10.3) mg/dl AST 45 H (13-39) U/L ALT 39 (7-52) U/L Alkaline Phosphatase 59 (34-104) U/L Total Protein 5.2 L (6.0-8.3) gm/dl Albumin 2.9 L (3.4-5.0) gm/dl Intake and Output 02/22/24 02/23/24 02/23/24 22:59 06:59 14:59 Intake Total 703.717 / 2299.018 354.2 / 2299.018 63.65 / 63.65 Output Total 452 / 1302 Balance 251.717 / 997.018 354.2 / 99.018 63.65 / 63.65 Intake: IV 463.717 / 2008.018 354.2 / 2008.018 63.65 / 63.65 Acetaminophen 1,000 mg In 100 100 / 300 100 / 300 ml @ 400 mls/hr IV Q8 CLEMENTINA Rx#: [id number] Heparin Sodium/Dextrose 25,000 163.717 / 500.000 154.2 / 500.000 63.65 / 63.65 units In 500 ml @ 950 UNITS/HR 19 mls/hr IV .Q24H CLEMENTINA Rx#: [id number] Piperacillin/Tazobactam 4.5 gm 100 / 300 100 / 300 In Dextrose 5% Mini-B 100 ml @ 25 mls/hr IV Q8H CLEMENTINA Rx#: [id number] Potassium Chloride / Wtr 10 meq 100 / 400 In 100 ml @ 100 mls/hr IV Q1H CLEMENTINA Rx#:[id number] Oral 240 / 290 Output: Urine Amount (Catheter) 450 / 1300 Hess/Indwelling 450 / 1300 # Bowel Movements 2 / 2 Other: Other Intake Source Sips Weight 58.2 kg 58.2 kg Weight Measurement Method Built in [facility]
[2024-02-23 07:12] LABS: Folate (Folic Acid),Ser orPlas 17.84 ng/ml (>5.38)
--- NOTE | 2024-02-23 07:43 | Hospitalist Progress Note ---
Date of Service February 23, 2024 Assessment & Plan (1) Acute on chronic heart failure with reduced ejection fraction and diastolic dysfunction: (2) Fall: (3) AMS (altered mental status): (4) Cellulitis of foot: (5) Elevated troponin: (6) Hyperglycemia: (7) Type 1 diabetes mellitus: (8) CAD (coronary artery disease): (9) MELAS (mitochondrial encephalopathy, lactic acidosis and stroke-like episodes): (10) H/O: stroke with residual effects: (11) Hypertension: Plan: Ms. Chavez is a 68-year-old female with past med history significant for type 1 diabetes, diabetic polyneuropathy, hyperlipidemia, chronic rhinitis, CAD s/p stent, hypertension, history of CVA, aphasia poststroke, Schatzki"s ring, Mnire's disease,MELAS, cochlear implant in place, was recently in the hospital for acute CHF in 12/2023 who is being admitted for acute on chronic encepha lopathy as well as concern for acute on chronic heart failure exacerbation. Patient discharged to home at that time 12/2023. Patient cried in pain when touching bilateral feet on admission. Patient rolling head in pain, with near flaccid forward flexion. Pain in lower extremities likely multifactorial given large laceration of right foot with thrombosis. Foot XR from day prior didn't reveal any rigoberto involvement, which is along the lines of the negative ESR/CRP. Labs consistent with volume overload, however, lactic acidosis initially improved with diuresis notably increased with subsequent attempts. At this time, marginal improvement in status, but able to feed self and take po. #Acute on Chronic Heart failure with reduced EF #Ischemic Cardiomyopathy s/p [facility], diffuse CAD #Recurrent angina history #Elevated Troponin, possibly demand ischemia iso tachycardia/acute illness/HF exacerbation 12/29/2023 revealed severe hypokinesis to akinesis of the basal and mid inferior wall and inferoseptum with [id number] diffuse hypokinesis noted otherwise, LVEF 35-40%. Moderate to severe mitral regurgitation observed as well as tricuspid regurgitation and a moderate-sized left pleural effusion BNP: 1097 Troponin: 138-->125--> 200 (H/O elevated troponins during prior admissions in similar range) CXR: Interval progression of the pulmonary edema with small bilateral pleural effusions EKG: appears to be sinus tachycardia, remains sinus tachy at this time In ER given 40 mg Lasix IV, received additional lasix this am However given uptrending lactic acidosis will hold, Monitor I's and O's, daily weights Monitor on telemetry Cardiology consult, will appreciate recs Patient tolerating PO, encourage Metoprolol 25mg BID PO, liberalized holding parameters to ensure administration -Metoprolol 2.5mg q4h if not PO #Acute metabolic encephalopathy, likely multifactorial #MELAS #Elevated lactic acidosis #Prior left MCA infarction In ER T: 34.3 C rectal, P: 119, BP 109/94, 96% on room air. Upon reassessment T: 35.8 C rectally with Sumit hugger on. P: 117, BP 126/83, R: 20, 96% on room air Lactate: 6.6-->4.9-->7.9 CT Head: no acute intracranial abnormality UA: ?possible UTI vs contamination Urine culture NGTD Blood cultures / +, likely contaminate, Trend lactate, holding fast Unclear if lactate elevated from MELAS, CHF or underlying infection -Check abd/pelvis for source, bowel issues? Continue empiric coverage at this time with Zosyn -MRSA nare negative, discontinue Vanc Monitor for delirium Neurology consult for guidance on MELAS optimization -TSH WNL -B12, folate WNL Given continued lactic acidosis, ordered CT ABD/P to evaluate further #CoNS bacteria, Positive blood culture -Likely contaminate 1/4 Continue to monitor #Microcytosis MCV notably 76 this morning, and low since admission---iron studies ordered #Transaminitis -Downtrending, potentially congestive v related to ?infection -Repeat CMP in am -No localizing symptoms #Anion Gap Metabolic acidosis -likely with elevated lactic acid, though improving -Trend lactate, treat ?infection and HF #Acute thrombus in right tibial vein, DVT #BLE foot wounds with signs of venous insufficiency -Heparin drip in interim -Wound consult -Duplex negative for arterial, doppler with thrombus -ESR 5, CRP 2.45 -Broad coverage empirically while infectious work up pends, plan to d/c vanc #Small bilateral pleural effusions -recent thoracentesis on 01/01/2024, no large accumulations that seem warranting procedure -monitor fluid status and oxygenation #Mechanical Fall #Ambulatory dysfunction #Elevated CK Unwitnessed fall reported today. Reported progressive difficulty with ambulation CT head no acute intracranial abnormality C-spine CT: No acute cervical fracture Fall precautions PT/OT consult CK <500 on admission and no PAMDA, will repeat--again could be 2/2 underlying MELAS, but will ensure fluids if concern for uptrend/rhabdo component #Hyperglycemia #DM I A1c: 8.2 on 01/09/2024 Unclear if patient has been giving herself insulin at home recently Glucose 371 in ER. VBG pH WNL Transitioned from insulin drip for hyperglycemia There was no concern for DKA, insulin drip to aid given increasing hyperglycemia and close monitor in DMTI -Basal bolus per aid from glycemic pharmacy DVT Prophylaxis heparin drip Admission and Anticipated Discharge Date Admission Date: February 21, 2024 Subjective No acute events overnight More alert days prior, tracking in room and making meaningful eye contact limited conversation Physical Exam Constitutional: WD/WN, vitals as above Respiratory: normal respiratory effort, lungs clear to auscultation Cardiovascular: tachycardic Gastrointestinal (Abdomen): normal bowel sounds, soft, nontender, no hepatos plenomegaly Skin: erythema and edema of BLE reduced, areas of wrinkling were pedal edema was 2+ on admission Results & Data Results & Data Vital Signs (Past 12 Hours) Vital Signs Temp Pulse Pulse Resp BP Pulse Ox O2 Del Method 02/23/24 03:45 36.3 C L 98 H 18 111/74 97 Room Air 02/22/24 23:55 36.4 C L 96 H 16 102/69 99 Room Air 02/22/24 21:56 95 H 02/22/24 20:47 36.4 C L 84 19 90/55 L 95 Room Air Laboratory Results Short CBC 02/23/24 Range/Units 05:32 WBC 9.16 (4.8-10.8) K/ul Hgb 12.6 (12.0-16.0) g/dl Hct 38.1 (37.0-47.0) % Plt Count 144 (130-400) K/uL BMP 02/22/24 13:03 Sodium 136 Potassium 3.2 L Chloride 91 L Carbon Dioxide 33 H BUN 54 H Creatinine 0.98 Glucose 147 H Calcium 8.3 L Medications Administered Home Medications Medication Instructions Recorded Confirmed Last Taken vit A 12,500 unit-zinc 12.5 1 cap PO QAM 05/14/20 02/21/2423 [id number]-bilberry-herb #261 capsule ([employer] Support) aspirin 81 mg tablet,delayed 81 mg PO QAM #90 tabs 05/17/20 02/21/24 07/14/23 release nitroglycerin 0.4 mg sublingual 0.4 mg sublingual UD PRN chest 05/17/20 02/21/24 Unknown tablet (Nitrostat) pain #30 tabs evolocumab 140 mg/mL subcutaneous 140 mg subcut .[id number] 08/10/21 02/21/24 07/10/23 pen injector (Repgerbera SureClick) coenzyme Q10 100 mg capsule 100 mg PO DAILY 01/14/22 02/21/24 07/14/23 (CoQ-10) furosemide 40 mg tablet (Lasix) 40 mg PO DAILY #30 tabs 01/12/24 02/21/24 Unknown insulin aspart U-100 100 unit/mL 3 unit (0.03 mL) subcut TIDM #15 mL 01/12/24 02/21/24 07/14/23 (3 mL) subcutaneous pen (Novolog FlexPen U-100 Insulin aspart) insulin glargine 100 unit/mL (3 15 unit (0.15 mL) subcut HS #15 mL 01/12/24 02/21/24 07/14/23 mL) subcutaneous pen (Lantus Solostar U-100 Insulin) metoprolol succinate 25 mg 25 mg PO BID #60 tabs 01/12/24 02/21/24 Unknown tablet,extended release 24 hr Active Medications Generic Name Dose Route Start Last Admin Trade Name Freq PRN Reason Stop Dose Admin Aspirin 81 mg 02/22/24 09:00 02/22/24 09:10 Aspirin 81 Mg Ectab PO 03/23/24 08:59 Not Given QAM CLEMENTINA Dextrose 25 - 50 ml 02/22/24 10:15 02/22/24 10:19 Dextrose 50% 50 Ml Syringe IV 03/23/24 10:14 25 ml UD PRN Administration Hypoglycemia Protocol Protocol Furosemide 40 mg 02/21/24 21:10 02/22/24 06:14 Furosemide 40 Mg/4 Ml Vial IV 03/22/24 21:09 40 mg TID@0600,1200,1700 CLEMENTINA Administration Vancomycin HCl 1,000 mg/ 270 mls @ 200 mls/hr 02/22/24 08:00 02/22/24 10:51 Sodium Chloride IV 02/24/24 07:59 Infused Q24H CLEMENTINA Infusion Piperacillin Sod/Tazobactam 100 mls @ 25 mls/hr 02/22/24 04:00 02/23/24 03:59 Sod 4.5 gm/ Dextrose IV 02/24/24 03:59 25 mls/hr Q8H CLEMENTINA Administration Protocol Heparin Sodium/Dextrose 25,000 units in 500 mls @ 19 mls/hr 02/22/24 00:30 02/23/24 07:20 Heparin Sodium/Dextrose IV 03/23/24 00:29 950 units/hr .Q24H CLEMENTINA 19 mls/hr Titration Protocol 950 UNITS/HR Acetaminophen 1,000 mg in 100 mls @ 400 mls/hr 02/22/24 10:00 02/23/24 01:30 Ofirmev IV 02/25/24 09:59 Infused Q8 [facility]MENTINA Infusion Insulin Aspart 0 units 02/22/24 11:30 02/22/24 21:18 Insulin Aspart Per Unit Charge SC 03/23/24 11:29 Not Given ACHS CLEMENTINA Metoprolol Succinate 25 mg 02/22/24 09:00 02/22/24 20:52 Metoprolol Succ 25mg Ext Rel Tab PO 03/23/24 08:59 Not Given BID CLEMENTINA (2) Fall Encounter type: initial encounter Qualified Code(s): W19.XXXA - Unspecified fall, initial encounter
[2024-02-23 07:55] LABS: Albumin Globulin Ratio 1.3 (0.9-2); Albumin Level 2.9 gm/dl (3.4-5.0); BUN Creatinine Ratio 59.3 (10-20); Bilirubin,Total 1.1 mg/dl (0.2-1.0); Calcium 8.1 mg/dl (8.6-10.3); Creatinine Clr Calc Pharmacy 52.1 ml/min; Est GFR (Non-African American) 69.9 ml/min; Globulin 2.3 gm/dl (2.5-4.0); Magnesium 1.3 mg/dl (1.7-2.4); Phosphorus 2.5 mg/dl (2.5-4.9); Potassium 3.2 mmol/L (3.5-5.1); Total Protein 5.2 gm/dl (6.0-8.3)
[2024-02-23 08:45] LABS: Ferritin 39.6 ng/ml (8-388)
[2024-02-23] MEDS: METOPROLOL TARTRATE 1 MG/ML VIAL IV STA (09:06)
[2024-02-23] MEDS: POTASSIUM CHLORIDE CRTAB 20 MEQ TABCR PO STA (09:12)
[2024-02-23] MEDS: LANTUS PER UNIT CHARGE SC SCH (09:15)
[2024-02-23] MEDS: POTASSIUM CHLORIDE / WTR 10 MEQ/100 ML PLCT IV SCH ×2 (10:01→13:43)
[2024-02-23] MEDS: LACTATED RINGER'S 250 ML IV ONE (10:01)
[2024-02-23] MEDS: OPTIRAY 320 100ml IV ONE (10:50)
--- NOTE | 2024-02-23 11:26 | CT Scan Report ---
CT SCAN OF THE ABDOMEN AND PELVIS WITH IV CONTRAST CLINICAL HISTORY: Elevated hepatic transaminases. COMPARISON STUDY: Abdominal ultrasound dated 12/29/2023. TECHNIQUE: Following the IV administration of 92 cc of Optiray 320, CT scan of the abdomen and pelvi s is performed from the lung bases to the proximal femora. Images are reviewed in the axial, sagittal , and coronal planes. IV contrast was administered without complication. A dose lowering technique wa s utilized adhering to the principles of ALARA. The examination is degraded by motion artifact, as we ll as by streak artifact from the arms which could not be elevated above the abdomen. CT DOSE: 743.23 mGy.cm FINDINGS: Lung bases: The heart is enlarged and without pericardial effusion. The coronary arteries are densely calcified. There are moderate pleural effusions with dependent consolidation. Liver: The contrast-enhanced liver is markedly heterogeneous and shows morphologic changes of cirrhos is. There is mild nodularity of the hepatic surface contour. There is no intrahepatic biliary ductal dilatation. The hepatic veins and portal veins are patent. Gallbladder: Surgically absent noting clips in the gallbladder fossa. Spleen: Normal in size and attenuation. Pancreas: The pancreas is mildly atrophic. Parenchymal calcifications indicate chronic pancreatitis. Adrenal glands: Unremarkable. Kidneys: The contrast enhanced kidneys are normal in size and without hydronephrosis. The kidneys enh ance symmetrically. Abdominal vasculature: The abdominal aorta is normal in course and caliber noting mild to moderate at herosclerotic calcification. Bowel: The gastric mucosa appears hyperemic. There is mild colonic fecal retention. No bowel obstruct ion is seen. A structure that likely represents a normal appendix is seen on image #[id number]. Peritoneum: There is trace perihepatic and pelvic ascites. No intraperitoneal free air is identified. Lymphadenopathy: None. Pelvic viscera: The bladder is decompressed around a Hess catheter. There is pericystic infiltration the uterus is surgically absent. No adnexal lesion is seen. Skeletal structures: The skeletal structures are osteopenic. There is mild lumbosacral spondylosis. S clerotic change is seen in the sacroiliac joints. No lytic or blastic lesions are seen. Soft tissues: There is anasarca of the body wall. IMPRESSION: 1. The liver is normal in size and markedly heterogeneous in attenuation. Mild nodularity of the surf amanda contour suggests morphologic change of cirrhosis. 2. There are moderate pleural effusions with dependent consolidation. 3. Anasarca and trace abdominopelvic ascites indicate fluid overload. 4. The gastric mucosa appears hyperemic. Correlate clinically for evidence of gastritis. If warranted this could be further assessed with endoscopy. 5. The bladder is decompressed around a Hess catheter and there is pericystic infiltration. Correlat e with clinical findings and urinalysis. 6. Additional findings as above. ACT 112: Negative or not required by law. Electronically signed by: Wilbert Lee M.D. 02/23/2024 11:23 AM
[2024-02-23] MEDS ORDERED: METOPROLOL TARTRATE 1 MG/ML VIAL IV PRN (11:45)
[2024-02-23] MEDS: IRON SUCROSE 200 MG in 0.9 % SODIUM CHLORIDE 100 ML IV SCH (12:01)
[2024-02-23] MEDS: POTASSIUM CHLORIDE PWD 20 MEQ PACK PO SCH (12:01)
[2024-02-23] MEDS: MAGNESIUM SULFATE / D5W 1 GM/100 ML BAG IV SCH (12:01)
[2024-02-23 12:36] LABS: Color Urine Red
[2024-02-23 12:37] LABS: Appearance Urine Cloudy (Clear)
[2024-02-23 12:38] LABS: Specific Gravity Urine > 1.060 (1.000-1.030)
[2024-02-23 12:43] LABS: Bacteria Urine Negative (Negative); Epithelial Cell Urine 0-5 /lpf (0-5); RBC Urine >30 /hpf (0-4)
[2024-02-23] MEDS: bisacodyL 10 MG SUPP PR STA (12:49)
[2024-02-23] MEDS ORDERED: POTASSIUM CHLORIDE CRTAB 20 MEQ TABCR PO SCH (14:00)
--- NOTE | 2024-02-23 14:26 | Communication Note ---
Date of Service: February 23, 2024 Updates: Gross Hematuria: holding heparin, urology consult Will need to weight risks/benefits of AC, luckily DVT distal Lactate down trending CT AB/P with decompressed around a Hess catheter and there is pericystic infiltration? The gastric mucosa appears hyperemic. There is mild colonic fecal retention. -Bisacodyl prn, start bowel regimen -PPI IV Trial IV lasix
[2024-02-23] MEDS: FUROSEMIDE 40 MG/4 ML VIAL IV ONE (17:35)
--- NOTE | 2024-02-23 18:13 | Urology Consultation ---
Date of Consultation February 23, 2024 Assessment & Plan (1) UTI (urinary tract infection): (2) Hematuria, gross: (3) Hemiplegia: (4) Acute heart failure with preserved ejection fraction (HFpEF): (5) Acute chest pain: (6) Anemia: (7) Acute stroke due to ischemia: (8) Altered mental status: (9) CAD (coronary artery disease): (10) Acute on chronic heart failure with reduced ejection fraction and diastolic dysfunction: (11) Encephalopathy: (12) Acute exacerbation of CHF (congestive heart failure): Plan Patient admitted after fall. Has significant issues after her CVA. Has baseline issues with mobility. Had been found to have clots of lower extremity was placed on anticoagulation. Patient underwent assessment due to the development of hematuria. Anticoagulation was held. Patient had a light red urine on assessment today. Extensively reviewed this with patient and family. Limited ability with the patient for communication secondary to her baseline issues however extensive conversation with patient's family at bedside. Patient is tolerating diet and is active at this point. Is not having major symptoms. Was not having major complaints of urinary issues. Patient has not had significant problems with UTIs in the past. Did discuss extensively UTIs and possible issues. Discussed decreased mobility, recent injury/fall, and other issues that may have contributed to the onset of the infection. Reviewed patient's imaging. Has been reviewed interpreted by myself. No signs of major obstruction. Does have a likely pericystic inflammatory changes consistent with bladder wall thickening from infection. Cultures are pending. Patient is tolerating the catheterization. Urine has continued to clear. They discussed blood loss during acute gross hematuria episodes. Discussed typically blood loss is minimal and typically can continue to utilize anticoagulation in order to deal with the acute issue. Can monitor the output over time. Extensively reviewed this with patient and family. Patient's labs and vitals were all reviewed. Vitals are stable with mild tachycardia at 116. Blood pressure 107/73. Patient has remained afebrile with most recent temperature 36.0. Patient was satting 96% on room air. Patient was eating dinner without major issue. White cells came back at 9.16. Creatinine 0.86. Hemoglobin was 12.6. Reviewed options moving forward. Patient complicated medical and surgical history was reviewed and summarized as above. Will plan to continue to monitor. Will have nursing pass along that. Is reasonable to restart the anticoagulation and monitor gross materia for now. Will need likely workup including cystoscopy in order to further evaluate the bladder to rule out other issues that could contribute to bleeding. May need further workup for UTI issues. Will plan to continue to monitor over time with plans for outpatient follow-up. History of Present Illness Attending Physician: Karen Cruz MD History of Present Illness Consult for urinary issues with hematuria. Patient is admitted after a fall. Has been having some issues with confusion. Has history of stroke. Has baseline residual issues from this. Does live with family. Was found down after the fall. Found to have DVT. Was placed on blood thinners. Is being admitted and closely monitored. Patient developed hematuria. Due to concern with hematuria the anticoagulation was held. Saw patient today with family. Per reports, patient has mild to moderate discomfort in pelvis and groin going to back and side in waves. Is dealing with acute illness and deconditioning after fall. Has been deconditioned from this. Has decreased mobility significantly with acute issues. Denies significant previous episodes of hematuria. Has not been to see a urologist in the past because of urinary issues. Does not have history of significant UTIs. Patient has catheter in place. Has gone from pink to red to clearing. Has had some minor urinary issues in the past. No severe nausea or vomiting. Currently no fevers. No significant family history of malignancy. Allergies Allergy/AdvReac Type Severity Reaction Status Date / Time atorvastatin AdvReac Intermediate myalgias, Verified 01/08/24 21:34 dysarthria prednisone AdvReac Intermediate metabolic-h Verified 01/08/24 21:34 yperglycemi a Home Medications Medication Instructions Recorded Confirmed Type vit A 12,500 unit-zinc 12.5 1 cap PO QAM 05/14/20 02/21/24 History wo-ofaanj-lwnpy-bilberry-herb #261 capsule (Lipotriad Vision Support) aspirin 81 mg tablet,delayed 81 mg PO QAM #90 tabs 05/17/20 02/21/24 Rx release nitroglycerin 0.4 mg sublingual 0.4 mg sublingual UD PRN chest 05/17/20 02/21/24 Rx tablet (Nitrostat) pain #30 tabs evolocumab 140 mg/mL subcutaneous 140 mg subcut .[id number] 08/10/21 02/21/24 History pen injector (Jaime Nicholson) coenzyme Q10 100 mg capsule 100 mg PO DAILY 01/14/22 02/21/24 History (CoQ-10) furosemide 40 mg tablet (Lasix) 40 mg PO DAILY #30 tabs 01/12/24 02/21/24 Rx insulin aspart U-100 100 unit/mL 3 unit (0.03 mL) subcut TIDM #15 mL 01/12/24 02/21/24 Rx (3 mL) subcutaneous pen (Novolog FlexPen U-100 Insulin aspart) insulin glargine 100 unit/mL (3 15 unit (0.15 mL) subcut HS #15 mL 01/12/24 02/21/24 Rx mL) subcutaneous pen (Lantus Solostar U-100 Insulin) metoprolol succinate 25 mg 25 mg PO BID #60 tabs 01/12/24 02/21/24 Rx tablet,extended release 24 hr Patient History Medical History Bilateral pleural effusion Unspecified hereditary retinal dystrophy Bilateral sensorineural hearing loss Bilateral myopia 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 Degeneration of cervical intervertebral disc History of TMJ disorder Hemiplegia Diabetic polyneuropathy Aphasia as late effect of cerebrovascular accident CAD (coronary artery disease) Statin intolerance Atherosclerosis of coronary artery Macular degeneration Mnire's disease Schatzki's ring MELAS (mitochondrial encephalopathy, lactic acidosis and stroke-like episodes) HLD (hyperlipidemia) Type 1 diabetes mellitus Hypertension Surgical History S/P coronary artery stent placement History of heart artery stent History of cochlear implant Left in 2014 History of left heart catheterization 07/2019 which revealed 30% proximal LAD otherwise clean coronaries History of colonoscopy with polypectomy History of cholecystectomy History of hysterectomy Family History Mother Coronary heart disease, Onset Age: 70 Father Coronary heart disease, Onset Age: 50 Daughter MELAS (mitochondrial encephalopathy, lactic acidosis and stroke-like episodes) Social History Smoking Status: Never smoker Tobacco Type: Cigarettes Second Hand Exposure: No; Do You Dip or Chew Tobacco: No; Hx Alcohol Use: No Hx Substance Use: No Preferred Language: Maori Communication Ability: Impaired Communication Ability Comment: Cochlear implant, communication difficult at times Hearing Ability: Cochlear Implant Shower Screen Installer Required: No Beliefs That Will Affect Care: None marital status: Current Living Situation: Family Current Living Situation Comment: with son Lee current occupational status: retired and disabled How many Children do You have: 2 Other Information That Helps Us Care for You: No Feels Safe at Home: Yes Safety Concerns: Feels Safe At This Time Assistive Devices: Cane, Glasses and Other Assistive Devices Comment: Chochlar implant Review of Systems Review of Systems: All systems reviewed & are unremarkable except as noted in HPI & below Physical Exam Physical Exam: General: Alert in no acute distress. Baseline issues with limited ability to communicate. Patient seen with family. HEENT: Normocephalic Atraumatic. Inspection normal. Cranial Nerves 2-12 Grossly intact. Nares are clear. Neck is supple. Normal inspection of face. Normal inspection of neck. Neurologic: No new deficits on inspection. Baseline for motor function and sensory. Psychologic: Normal affect. Respiratory: Nonlabored. No use of accessory muscles. No tachypnea or dyspnea. Cardiovascular: No tachycardia Skin: [place] and Dry. No rashes or visible lesions. Extremities: Moving without issues. No motor deficits on inspection Lymphatics: swelling of the LE likely secondary to clots Abdomen: Soft Non-distended. No rebound or guarding. : Hess in place draining light red urine. Results & Data Vital Signs (Past 12 Hours) Vital Signs Temp Pulse Pulse Resp BP Pulse Ox O2 Del Method 02/23/24 14:58 36.0 C L 116 H 16 107/73 96 Room Air 02/23/24 11:37 36.4 C L 101 H 16 104/64 98 Room Air 02/23/24 09:59 98 H 02/23/24 09:06 110 H 02/23/24 08:08 36.4 C L 97 H 17 116/77 97 Room Air PG Care Time/CCT Total # of Minutes Spent Total Time Spent with Patient: Total time spent is greater than 50% in coordination of care (as documented) at patient's floor/unit and/or counseling patient: Coding Level of Care Code 08414 INT INP/OBS CARE 75MIN Diagnoses UTI (urinary tract infection) N39.0 Hematuria, gross R31.0 Hemiplegia G81.90 Acute heart failure with preserved ejection fraction (HFpEF) I50.31 Acute chest pain R07.9 Anemia D64.9 Acute stroke due to ischemia I63.9 Altered mental status R41.82 Coronary artery disease of [place] artery of [place] heart with stable angina pectoris I25.118 Coronary Disease-Associated Artery/Lesion type: [place] artery [place] vs. transplanted heart: [place] heart Associated angina: with stable angina Acute on chronic heart failure with reduced ejection fraction and diastolic dysfunction I50.43 Encephalopathy G93.40 Acute exacerbation of CHF (congestive heart failure) I50.9 Heart failure type: unspecified (9) CAD (coronary artery disease) Coronary Disease-Associated Artery/Lesion type: [place] artery [place] vs. transplanted heart: [place] heart Associated angina: with stable angina Qualified Code(s): I25.118 - Atherosclerotic heart disease of [place] coronary artery with other forms of angina pectoris (12) Acute exacerbation of CHF (congestive heart failure) Heart failure type: unspecified Qualified Code(s): I50.9 - Heart failure, unspecified
[2024-02-23 19:39] LABS: ANTI-Xa, UFH(UnfractionatedHep < 0.10 IU/ml (0.3-0.7)
[2024-02-23] MEDS ORDERED: Nursing to Pharmacy Communication SCH (21:00)
[2024-02-23] MEDS: PANTOprazole 40 MG in SYRINGE 0 ML IV SCH (21:33)
[2024-02-23] MEDS: DOCUSATE SODIUM 100 MG CAP PO SCH (21:46)
[2024-02-24] MEDS: INSULIN ASPART PER UNIT CHARGE SC SCH (00:14)
[2024-02-24 03:50] LABS: Hematocrit (blood only) 36.3 % (37.0-47.0); Mean Corpuscular Hemoglobin 25.4 pg (25.0-34.0); Mean Corpuscular Hgb Conc 33.1 g/dL (32.0-36.0); Mean Corpuscular Volume 76.9 fL (80.0-100.0); Mean Platelet Volume 11.6 fL (9.4-12.4); Platelet Count 149 K/uL (130-400); RDW Coefficient of Variation 16.8 % (11.5-14.5); RDW Standard Deviation 45.1 fL (36.4-46.3); Red Blood Count 4.72 M/uL (4.20-5.40); White Blood Count 8.79 K/ul (4.8-10.8)
[2024-02-24 04:04] LABS: BUN Creatinine Ratio 48.1 (10-20); Calcium 7.8 mg/dl (8.6-10.3); Creatinine Clr Calc Pharmacy 55.3 ml/min; Est GFR (African American) 87.1 ml/min; Est GFR (Non-African American) 75.2 ml/min; Magnesium 1.5 mg/dl (1.7-2.4); Phosphorus 2.6 mg/dl (2.5-4.9); Potassium 3.1 mmol/L (3.5-5.1)
[2024-02-24 04:44] LABS: ANTI-Xa, UFH(UnfractionatedHep 0.43 IU/ml (0.3-0.7)
[2024-02-24] MEDS: MAGNESIUM SULFATE / D5W 1 GM/100 ML BAG IV SCH (08:01)
[2024-02-24] MEDS: ceFAZolin 2000MG 2,000 MG/15 ML SYR IV SCH (08:53)
[2024-02-24] MEDS: POTASSIUM CHLORIDE CRTAB 20 MEQ TABCR PO SCH ×2 (08:54→20:51)
[2024-02-24] MEDS: LANTUS PER UNIT CHARGE SC SCH (08:57)
--- NOTE | 2024-02-24 08:58 | Pharmacy Report ---
Pharmacy Glycemic Short Note 2 - Date of Service February 24, 2024 - Glycemic Short BSG Results (Last 24 hours): 02/23/24 02/23/24 02/23/24 11:40 16:43 16:45 Glucose POC Glucose 180 H 364 H* 343 H* 02/23/24 02/24/24 02/24/24 21:39 00:08 03:28 Glucose 72 POC Glucose 260 H 158 H 02/24/24 02/24/24 02/24/24 04:11 06:00 07:16 Glucose POC Glucose 76 82 92 OUTPATIENT ANTIDIABETIC REGIMEN: * Lantus 15 units SC HS * Novolog 3 units SC TIDM * HbA1c: 8.2% (01/09/24) ASSESSMENT: 02/23: * Shanda received 21 units of insulin yesterday, 10 units basal + 11 units bolus. BSGs were: [id number] mg/dL. * Fasting BSG was 92 mg/dL this AM. Will reduce basal by 20% back down to 8 units daily. * Given drop in postprandial BSGs throughout last evening, will loosen carb ratio this AM. * Abx have been discontinued. Continues on heparin drip. 02/21: * CD is a 68 year old female w/ T1DM, admitted for acute/chronic HFrEF (likely related to medication non-compliance) * Patient w/ elevated anion gap (19) and hyperglycemia (BSG >300 mg/dL), but serum bicarbonate and VBG pH WNL - not believed to be DKA * Insulin infusion initiated for hyperglycemia - blood sugars trended down nicely on gtt w/ mild hypoglycemia late morning (69 mg/dL) * Diet initiated and insulin gtt transitioned to SC basal/bolus * Prior admission data suggests that patient is prone to hypoglycemia - will be conservative to start PLAN FOR INPATIENT GLYCEMIC CONTROL: * Basal insulin * Lantus 8 units SC daily * Bolus insulin * NovoLog per scale ACHS or Q6hrs while NPO * Goal Range: Low 120 mg/dL - High 150 mg/dL * Correction Factor: 40 mg/dL/unit * Nutritional / Prandial insulin per carb ratio of 1 unit per 15 grams CHO consumed
--- NOTE | 2024-02-24 10:10 | Hospitalist Progress Note ---
Date of Service February 24, 2024 Assessment & Plan (1) Acute on chronic heart failure with reduced ejection fraction and diastolic dysfunction: (2) Fall: (3) AMS (altered mental status): (4) Cellulitis of foot: (5) Elevated troponin: (6) Hyperglycemia: (7) Type 1 diabetes mellitus: (8) CAD (coronary artery disease): (9) MELAS (mitochondrial encephalopathy, lactic acidosis and stroke-like episodes): (10) H/O: stroke with residual effects: (11) Hypertension: Plan: Ms. Chavez is a 68-year-old female with past med history significant for type 1 diabetes, diabetic polyneuropathy, hyperlipidemia, chronic rhinitis, CAD s/p stent, hypertension, history of CVA, aphasia poststroke, Schatzki"s ring, Mnire's disease,MELAS, cochlear implant in place, was recently in the hospital for acute CHF in 12/2023 who is being admitted for acute on chronic encephal opathy as well as concern for acute on chronic heart failure exacerbation. Patient discharged to home at that time 12/2023. Patient cried in pain when touching bilateral feet on admission. Patient rolling head in pain, with near flaccid forward flexion. Pain in lower extremities likely multifactorial given large laceration of right foot with thrombosis. Foot XR from day prior didn't reveal any rigoberto involvement, which is along the lines of the negative ESR/CRP. Labs consistent with volume overload, however, lactic acidosis initially improved with diuresis notably increased with subsequent attempts. Continued improvement--patient feeding self and attempting to communicate. Long conversation with patient's brother and sister at bedside day prior, with plans to discuss code status with son/POA today regarding code status/dispo planning. #Gross Hematuria Urology evaluated, urine more clear, hgb stable. Can continue Heparin "pericystic infilitration" noted on imaging, UA without infection Plan for OP follow up #Acute on Chronic Heart failure with reduced EF #Ischemic Cardiomyopathy s/p [facility] 2019, diffuse CAD #Recurrent angina history #Elevated Troponin, possibly demand ischemia iso tachycardia/acute illness/HF exacerbation 12/29/2023 revealed severe hypokinesis to akinesis of the basal and mid inferior wall and inferoseptum with [id number] diffuse hypokinesis noted otherwise, LVEF 35-40%. Moderate to severe mitral regurgitation observed as well as tricuspid regurgitation and a moderate-sized left pleural effusion BNP: 1097 Troponin: 138-->125--> 200 (H/O elevated troponins during prior admissions in similar range) CXR: Interval progression of the pulmonary edema with small bilateral pleural effusions EKG: appears to be sinus tachycardia, remains sinus tachy at this time In ER given 40 mg Lasix IV, received additional lasix this am s/p IV lasix on 02/22 Monitor I's and O's, daily weights Monitor on telemetry Cardiology consult, will appreciate recs Patient tolerating PO, encourage Metoprolol 25mg BID PO, liberalized holding parameters to ensure administration -Metoprolol 2.5mg q4h if not PO #Hypomagnesemia #Hypokalemia -Replace aggressively and repeat BMP at 1500 Difficulty encountered with intermittent PO and discomfort with IV site #Acute metabolic encephalopathy, likely multifactorial *improving #MELAS #Elevated lactic acidosis #Prior left MCA infarction In ER T: 34.3 C rectal, P: 119, BP 109/94, 96% on room air. Upon reassessment T: 35.8 C rectally with Sumit hugger on. P: 117, BP 126/83, R: 20, 96% on room air Lactate: 6.6-->4.9-->7.9 CT Head: no acute intracranial abnormality UA: ?possible UTI vs contamination Urine culture NGTD Blood cultures 1/4 +, likely contaminate, Trend lactate, holding fast Unclear if lactate elevated from MELAS, CHF or underlying infection -Check abd/pelvis for source - constipation/fecal retention, bowel regimen below Continue empiric coverage at this time with Zosyn -MRSA nare negative, discontinue Vanc Monitor for delirium Neurology consult for guidance on MELAS optimization -TSH WNL -B12, folate WNL Encephalopathy likely 2/2 constipation, MSSA cellulitis, HF---continue management #Constipation/fecal retention CT ABD/P gastric mucosa appears hyperemic. There is mild colonic fecal retention. s/p suppository Docusate BID Protonix daily #Acute thrombus in right tibial vein, DVT #BLE foot wounds with signs of venous insufficiency #Cellulitis -Heparin drip in interim -Wound consult -Duplex negative for arterial, doppler with thrombus -ESR 5, CRP 2.45 -Broad coverage empirically while infectious work up pends, plan to d/c vanc -Given MSSA on BLE and notable improvement in erythema, will continue course with Cefazolin #CoNS bacteria, Positive blood culture -Likely contaminate 1/4 Continue to monitor #Microcytosis MCV notably 76 this morning, and low since admission---iron studies ordered Iron 27, ferritin 39 Venofer 200mg x 3 doses planned, today 2 #Transaminitis -Downtrending, potentially congestive v related to ?infection -Repeat CMP in am -No localizing symptoms #Small bilateral pleural effusions -recent thoracentesis on 01/01/2024, no large accumulations that seem warranting procedure -monitor fluid status and oxygenation s/p IV lasix again on 02/22 #Mechanical Fall #Ambulatory dysfunction #Elevated CK *resolved Unwitnessed fall reported today. Reported progressive difficulty with ambulation CT head no acute intracranial abnormality C-spine CT: No acute cervical fracture Fall precautions PT/OT consult pending CK <500 on admission and no PADMA, will repeat--again could be 2/2 underlying MELAS, but will ensure fluids if concern for uptrend/rhabdo component #Hyperglycemia #DM I A1c: 8.2 on 01/09/2024 Unclear if patient has been giving herself insulin at home recently Glucose 371 in ER. VBG pH WNL Transitioned from insulin drip for hyperglycemia There was no concern for DKA, insulin drip to aid given increasing hyperglycemia and close monitor in DMTI -Basal bolus per aid from glycemic pharmacy #Anion Gap Metabolic acidosis *resolved -likely with elevated lactic acid, though improving -Trend lactate, treat ?infection and HF DVT Prophylaxis heparin drip Admission and Anticipated Discharge Date Admission Date: February 21, 2024 Subjective Evaluated by Urology overnight-Heparin resumed Patient more talkative today, attempting to have more meaningful conversation, however, difficult to ascertain what is being stated given aphasia -Noting frustration from patient trying to communicate However, this is notable improvement from days prior; patient holding head more steady, more communicative Physical Exam Constitutional: WD/WN, vitals as above Respiratory: diminished 2/2 effort Cardiovascular: ?JOSE Gastrointestinal (Abdomen): normal bowel sounds, soft, nontender, no hepatosplenomegaly Results & Data Results & Data Vital Signs (Past 12 Hours) Vital Signs Temp Pulse Pulse Resp BP Pulse Ox O2 Del Method 02/24/24 08:00 90 02/24/24 07:56 36.4 C L 96 H 18 105/72 95 Room Air 02/24/24 03:35 36.3 C L 92 H 16 94/62 L 92 Room Air 02/23/24 23:45 36.3 C L 98 H 17 100/68 97 Room Air 02/23/24 22:19 101 H Laboratory Results Short CBC 02/24/24 Range/Units 03:28 WBC 8.79 (4.8-10.8) K/ul Hgb 12.0 (12.0-16.0) g/dl Hct 36.3 L (37.0-47.0) % Plt Count 149 (130-400) K/uL BMP 02/24/24 03:28 Sodium 134 L Potassium 3.1 L Chloride 92 L Carbon Dioxide 33 H BUN 39 H Creatinine 0.81 Glucose 72 Calcium 7.8 L Urine 02/23/24 Range/Units 11:50 Urine Color Red Urine Appearance Cloudy A (Clear) Urine pH (4.5-7.5) Ur Specific [place] > 1.060 H (1.000-1.030) Urine Protein (Negative) Urine Glucose (UA) (Negative) Medications Administered Home Medications Medication Instructions Recorded Confirmed Last Taken vit A 12,500 unit-zinc 12.5 1 cap PO QAM 05/14/20 02/21/24 07/14/23 bp-hcnzxe-hcijt-bilberry-herb #261 capsule (Lipot[employer] Vision Support) aspirin 81 mg tablet,delayed 81 mg PO QAM #90 tabs 05/17/20 02/21/24 07/14/23 release nitroglycerin 0.4 mg sublingual 0.4 mg sublingual UD PRN chest 05/17/20 02/21/24 Unknown tablet (Nitrostat) pain #30 tabs evolocumab 140 mg/mL subcutaneous 140 mg subcut .[id number] 08/10/21 02/21/24 07/10/23 pen injector (Repatha SureClick) coenzyme Q10 100 mg capsule 100 mg PO DAILY 01/14/22 02/21/24 07/14/23 (CoQ-10) furosemide 40 mg tablet (Lasix) 40 mg PO DAILY #30 tabs 01/12/24 02/21/24 Unknown insulin aspart U-100 100 unit/mL 3 unit (0.03 mL) subcut TIDM #15 mL 01/12/24 02/21/24 07/14/23 (3 mL) subcutaneous pen (Novolog FlexPen U-100 Insulin aspart) insulin glargine 100 unit/mL (3 15 unit (0.15 mL) subcut HS #15 mL 01/12/24 02/21/24 07/14/23 mL) subcutaneous pen (Lantus Solostar U-100 Insulin) metoprolol succinate 25 mg 25 mg PO BID #60 tabs 01/12/24 02/21/24 Unknown tablet,extended release 24 hr Active Medications Generic Name Dose Route Start Last Admin Trade Name Freq PRN Reason Stop Dose Admin Aspirin 81 mg 02/22/24 09:00 02/24/24 08:55 Aspirin 81 Mg Ectab PO 03/23/24 08:59 81 mg QAM CLEMENTINA Administration Dextrose 25 - 50 ml 02/22/24 10:15 02/22/24 10:19 Dextrose 50% 50 Ml Syringe IV 03/23/24 10:14 25 ml UD PRN Administration Hypoglycemia Protocol Protocol Docusate Sodium 100 mg 02/23/24 21:00 02/24/24 08:55 Docusate Sodium 100 Mg Cap PO 03/24/24 20:59 100 mg BID CLEMENTINA Administration Furosemide 40 mg 02/21/24 21:10 02/22/24 06:14 Furosemide 40 Mg/4 Ml Vial IV 03/22/24 21:09 40 mg TID@0600,1200,1700 CLEMENTINA Administration Heparin Sodium/Dextrose 25,000 units in 500 mls @ 19 mls/hr 02/22/24 00:30 02/24/24 06:52 Heparin Sodium/Dextrose IV 03/23/24 00:29 950 units/hr .Q24H CLEMENTINA 19 mls/hr Titration Protocol 950 UNITS/HR Acetaminophen 1,000 mg in 100 mls @ 400 mls/hr 02/22/24 10:00 02/24/24 08:54 Ofirmev IV 02/25/24 09:59 Not Given Q8 CLEMENTINA Iron Sucrose 200 mg/ Sodium 110 mls @ 220 mls/hr 02/23/24 10:15 02/24/24 08:57 Chloride IV 02/26/24 10:14 100 mls/hr DAILY CLEMENTINA Administration Pantoprazole Sodium 40 mg/ 10 mls @ 5 mls/min 02/23/24 21:00 04/01/24 08:54 Syringe IV 03/24/24 20:59 5 mls/min BID CLEMENTINA Administration Magnesium Sulfate/Dextrose 1 gm in 100 mls @ 50 mls/hr 02/24/24 07:00 02/24/24 09:35 Magnesium Sulfate / D5w IV 02/24/24 14:59 50 mls/hr Q2H CLEMENTINA Administration Cefazolin Sodium 2,000 mg in 15 mls @ 2.5 mls/min 02/24/24 08:00 02/24/24 08:53 Ancef 2000mg IV 03/02/24 07:59 2.5 mls/min Q8H CLEMENTINA Administration Insulin Aspart 0 units 02/22/24 11:30 02/24/24 08:08 Insulin Aspart Per Unit Charge SC 03/23/24 11:29 Not Given ACHS CLEMENTINA Protocol Insulin Glargine 8 units 02/24/24 09:00 02/24/24 08:57 Lantus Per Unit Charge SC 03/24/24 08:59 8 units QAM CLEMENTINA Administration Protocol Metoprolol Succinate 25 mg 02/22/24 09:00 02/24/24 08:54 Metoprolol Succ 25mg Ext Rel Tab PO 03/23/24 08:59 25 mg BID CLEMENTINA Administration Potassium Chloride 20 meq 02/24/24 09:00 02/24/24 08:54 Potassium Chloride Crtab 20 Meq Tabcr PO 03/25/24 08:59 20 meq TID CLEMENTINA Administration (2) Fall Encounter type: initial encounter Qualified Code(s): W19.XXXA - Unspecified fall, initial encounter
[2024-02-24] MEDS ORDERED: DOCUSATE SODIUM 100 MG CAP PO SCH (10:15)
[2024-02-24 11:29] LABS: ANTI-Xa, UFH(UnfractionatedHep 0.71 IU/ml (0.3-0.7)
--- NOTE | 2024-02-24 13:45 | Urology Progress Note ---
Date of Service February 24, 2024 Assessment & Plan (1) Hematuria, gross: (2) UTI (urinary tract infection): Plan - Afebrile and hemodynamically stable. - Labs reviewed - WBC 8.79, Hemoglobin 12.0, Creatinine 0.81. - Urine culture 02/20 negative. - Blood culture 02/20 prelim coag neg staph 11/28. - On Cefazolin. - Hematuria appears to have cleared. Hess draining clear yellow urine. Continue to monitor. - CT A/P reviewed - No hydronephrosis and the bladder is decompressed around a Hess catheter with pericystic inflammatory changes - No acute intervention warranted. - Continue supportive care management per primary team. - Continue antibiotics. - Anticoagulation per primary team. Urology can manage hematuria as needed. - Will arrange outpatient follow-up with our serivce. - Urology will follow peripherally. Please call with any further questions or concerns. Plan of care reviewed with Dr. Huang, on-call urologist. Admission and Anticipated Discharge Date Admission Date: February 21, 2024 Subjective Pt examined at bedside this AM. Asleep on arrival, awakened briefly to name. No acute distress. Hess draining clear yellow urine. Review of Systems Constitutional: as per Subjective / HPI Genitourinary: as per Subjective / HPI Physical Exam Constitutional: no acute distress Respiratory: no respiratory distress and no labored breathing Neurologic: Awakened briefly to name Genitourinary: Hess in place draining yellow urine Results & Data Vital Signs (Past 12 Hours) Vital Signs Temp Pulse Pulse Resp BP Pulse Ox O2 Del Method 02/24/24 08:00 90 02/24/24 07:56 36.4 C L 96 H 18 105/72 95 Room Air 02/24/24 03:35 36.3 C L 92 H 16 94/62 L 92 Room Air 02/23/24 23:45 36.3 C L 98 H 17 100/68 97 Room Air PG Care Time/CCT Total # of Minutes Spent Total Time Spent with Patient: Total time spent is greater than 50% in coordination of care (as documented) at patient's floor/unit and/or counseling patient: Coding Level of Care Code 52248 SUB INP/OBS CARE 3/50MIN Diagnoses Hematuria, gross R31.0 UTI (urinary tract infection) N39.0
--- NOTE | 2024-02-24 14:21 | Electrocardiogram Report ---
Test Reason : Blood Pressure : / mmHG Vent. Rate : 116 BPM Atrial Rate : 116 BPM P-R Int : 116 ms QRS Dur : 092 ms QT Int : 366 ms P-R-T Axes : 056 -53 122 degrees QTc Int : 508 ms Sinus tachycardia Left axis deviation Inferior infarct (cited on or before 29-DEC-2023) Anteroseptal infarct (cited on or before 07-MAY-2023) Abnormal ECG When compared with ECG of 08-JAN-2024 19:33, No significant change Confirmed by Maynor Mtz ([id number]) on 02/24/2024 2:21:07 PM Referred By: REFERRED SELF Confirmed By:Maynor Mtz
[2024-02-24 18:02] LABS: BUN Creatinine Ratio 37.3 (10-20); Calcium 8.1 mg/dl (8.6-10.3); Est GFR (African American) 84.6 ml/min; Potassium 2.6 mmol/L (3.5-5.1)
[2024-02-24 18:30] LABS: ANTI-Xa, UFH(UnfractionatedHep 0.77 IU/ml (0.3-0.7)
[2024-02-24] MEDS: POTASSIUM CHLORIDE / WTR 10 MEQ/100 ML PLCT IV ONE (18:40)
--- NOTE | 2024-02-24 18:49 | Cardiology Progress Note ---
Date of Service February 24, 2024 Assessment & Plan (1) Acute on chronic heart failure with reduced ejection fraction and diastolic dysfunction: (2) Bilateral pleural effusion: (3) Elevated troponin: (4) CAD (coronary artery disease): (5) MELAS (mitochondrial encephalopathy, lactic acidosis and stroke-like episodes): Plan IMPRESSION: Medically complex 68-year-old female admitted due to a fall but found to be in acute on chronic heart failure. Last LVEF of 35% per inpatient echo 12/2023. Chest x-ray with pleural effusion PLAN: Acute on chronic HFrEF: Volume status appears well compensated. Strict I's and O's. Daily weights. 2 g sodium diet. Monitor renal function. Replace potassium to a goal of 4.0 and mag of 2.0. -Lower extremity edema much improved compared to most recent outpatient visit. Elevated troponin: Troponin: 138-->125 (H/O elevated troponin levels during prior admissions in similar range). EKG without ischemic changes. Low likelihood for ACS. Sinus Tach: Patient now eating and drinking--agree with resuming oral metoprolol, currently taking 25 mg twice daily. Room to titrate if needed --I have significant concerns with regards to the patient able to be cared for effectively at home. She has not been adherent with her medications. I have concerns that retirement facility placement may be the most appropriate neck step. This chart was completed in part utilizing Speech Voice Recognition Software. Grammatical errors, random word insertions, pronoun errors, and incomplete sentences are an occasional consequence of this system due to software limitations, ambient noise, and hardware issues. Any formal questions or concerns about the content, text, or information contained within the body of this dictation should be directly addressed to the provider for clarification. Admission and Anticipated Discharge Date Admission Date: February 21, 2024 Subjective Patient seen in cardiology follow-up. Telemetry reveals sinus rhythm in the 90s to low 100s. Unfractionated heparin infusing. Review of Systems Review of Systems: Unobtainable due to cognitive status Physical Exam Constitutional: + ill appearing (chronically ill) and + cachectic; no acute distress Neck: normal visual inspection and trachea midline Respiratory: normal respiratory effort; no respiratory distress Auscultation: no rales, no rhonchi and no wheezes Cardiovascular: Rate/Rhythm: regular rhythm and + tachycardic Heart Sounds: normal S1, normal S2 and + murmur Vessels: no JVD Extremities: + edema (trace BLLE pitting edema ) Gastrointestinal (Abdomen): normal bowel sounds, soft, nontender, no hepatosplenomegaly Psychiatric: Orientation: alert and oriented x 3; + not oriented to person, + not oriented to place and + not oriented to time Results & Data Vital Signs (Past 12 Hours) Vital Signs Temp Pulse Pulse Resp BP Pulse Ox O2 Del Method 02/24/24 15:14 36.3 C L 95 H 18 100/68 99 Room Air 02/24/24 11:32 36.4 C L 95 H 18 109/74 99 Room Air 02/24/24 08:00 90 02/24/24 07:56 36.4 C L 96 H 18 105/72 95 Room Air Laboratory Results CBC 02/24/24 Range/Units 03:28 WBC 8.79 (4.8-10.8) K/ul RBC 4.72 (4.20-5.40) M/uL Hgb 12.0 (12.0-16.0) g/dl Hct 36.3 L (37.0-47.0) % Plt Count 149 (130-400) K/uL Comprehensive Metabolic Panel 02/24/24 02/24/24 Range/Units 03:28 17:20 Sodium 134 L 134 L (136-145) mmol/L Potassium 3.1 L 2.6 L (3.5-5.1) mmol/L Chloride 92 L 89 L (98-107) mmol/L Carbon Dioxide 33 H 35 H (21-32) mmol/L BUN 39 H 31 H (6-23) mg/dl Creatinine 0.81 0.83 (0.6-1.2) mg/dl Glucose 72 134 H (70-99(Fasting)) mg/dl Calcium 7.8 L 8.1 L (8.6-10.3) mg/dl Intake and Output 02/24/24 02/24/24 02/24/24 06:59 14:59 22:59 Intake Total 278.6 / 2232.556 694.300 / 918.200 223.9 / 918.200 Output Total 350 / 350 Balance 278.6 / 631.556 344.300 / 568.200 223.9 / 568.200 Intake: IV 278.6 / 1872.556 574.300 / 798.200 223.9 / 798.200 Acetaminophen 1,000 mg In 100 100 / 100 ml @ 400 mls/hr IV Q8 [facility] Rx#: [id number] Heparin Sodium/Dextrose 25,000 178.6 / 369.233 89.3 / 213.2 123.9 / 213.2 units In 500 ml @ 900 UNITS/HR 18 mls/hr IV .Q24H [facility] Rx#: [id number] Iron Sucrose 200 mg In 0.9 % 110 / 110 Sodium Chloride 100 ml @ 220 mls/hr IV DAILY [facility] Rx#: [id number] Magnesium Sulfate / D5w 1 gm In 275.000 / 375.000 100 / 375.000 100 ml @ 50 mls/hr IV Q2H [facility] Rx#:[id number] Piperacillin/Tazobactam 4.5 gm 100 / 300 In Dextrose 5% Mini-B 100 ml @ 25 mls/hr IV Q8H [facility] Rx#: [id number] Oral 120 / 120 Output: Urine Amount (Catheter) 350 / 350 Hess/Indwelling 350 / 350 Other: Weight 58.2 kg Weight Measurement Method Built in [facility] Patient Weight 02/25/24 06:59 Weight 58.2 kg
[2024-02-24] MEDS: POTASSIUM CHLORIDE / WTR 10 MEQ/100 ML PLCT IV SCH (20:43)
[2024-02-25 01:32] LABS: ANTI-Xa, UFH(UnfractionatedHep 0.73 IU/ml (0.3-0.7)
--- NOTE | 2024-02-25 06:58 | Electrocardiogram Report ---
Test Reason : Blood Pressure : / mmHG Vent. Rate : 110 BPM Atrial Rate : 110 BPM P-R Int : 124 ms QRS Dur : 086 ms QT Int : 338 ms P-R-T Axes : 070 -51 139 degrees QTc Int : 457 ms Sinus tachycardia Left atrial enlargement Left axis deviation Inferior infarct (cited on or before 29-DEC-2023) Anteroseptal infarct (cited on or before 07-MAY-2023) Abnormal ECG When compared with ECG of 21-FEB-2024 15:19, (unconfirmed) Confirmed by Maynor Mtz ([id number]) on 02/25/2024 6:58:18 AM Referred By: REFERRED SELF Confirmed By:Maynor Mtz
[2024-02-25 08:14] LABS: Hematocrit (blood only) 38.8 % (37.0-47.0); Hemoglobin 12.8 g/dl (12.0-16.0); Mean Corpuscular Hemoglobin 25.3 pg (25.0-34.0); Mean Corpuscular Volume 76.7 fL (80.0-100.0); Mean Platelet Volume 12.1 fL (9.4-12.4); Platelet Count 133 K/uL (130-400); RDW Coefficient of Variation 16.9 % (11.5-14.5); RDW Standard Deviation 45.2 fL (36.4-46.3); Red Blood Count 5.06 M/uL (4.20-5.40); White Blood Count 7.33 K/ul (4.8-10.8)
[2024-02-25 08:35] LABS: ANTI-Xa, UFH(UnfractionatedHep 0.72 IU/ml (0.3-0.7)
[2024-02-25 08:51] LABS: BUN Creatinine Ratio 36.8 (10-20); Calcium 8.2 mg/dl (8.6-10.3); Creatinine Clr Calc Pharmacy 51.4 ml/min; Est GFR (African American) 79.9 ml/min; Est GFR (Non-African American) 68.9 ml/min; Magnesium 2.4 mg/dl (1.7-2.4); Potassium 3.4 mmol/L (3.5-5.1)
[2024-02-25] MEDS: PANTOprazole 40 MG TAB PO SCH (08:54)
--- NOTE | 2024-02-25 11:40 | Hospitalist Progress Note ---
Date of Service February 25, 2024 Assessment & Plan (1) Acute on chronic heart failure with reduced ejection fraction and diastolic dysfunction: (2) Fall: (3) AMS (altered mental status): (4) Cellulitis of foot: (5) Elevated troponin: (6) Hyperglycemia: (7) Type 1 diabetes mellitus: (8) CAD (coronary artery disease): (9) MELAS (mitochondrial encephalopathy, lactic acidosis and stroke-like episodes): (10) H/O: stroke with residual effects: (11) Hypertension: Plan: Ms. Chavez is a 68-year-old female with past med history significant for type 1 diabetes, diabetic polyneuropathy, hyperlipidemia, chronic rhinitis, CAD s/p stent, hypertension, history of CVA, aphasia poststroke, Schatzki"s ring, Mnire's disease,MELAS, cochlear implant in place, was recently in the hospital for acute CHF in 12/2023 who is being admitted for acute on chronic encephal opathy as well as concern for acute on chronic heart failure exacerbation. Patient discharged to home at that time 12/2023. Patient cried in pain when touching bilateral feet on admission. Patient rolling head in pain, with near flaccid forward flexion. Pain in lower extremities likely multifactorial given large laceration of right foot with thrombosis. Foot XR from day prior didn't reveal any rigoberto involvement, which is along the lines of the negative ESR/CRP. Labs consistent with volume overload, however, lactic acidosis initially improved with diuresis notably increased with subsequent attempts. Continued improvement--patient feeding self and attempting to communicate. Long conversation with patient's brother and sister at bedside day prior, with plans to discuss code status with son/POA today regarding code status/dispo planning. Patient's mentation is waxing and waning. Planning for palliative consult today. #Gross Hematuria Urology evaluated, urine more clear, hgb stable. Can continue Heparin "pericystic infilitration" noted on imaging, UA without infection Plan for OP follow up #Acute on Chronic Heart failure with reduced EF #Ischemic Cardiomyopathy s/p [facility], diffuse CAD #Recurrent angina history #Elevated Troponin, possibly demand ischemia iso tachycardia/acute illness/HF exacerbation 12/29/2023 revealed severe hypokinesis to akinesis of the basal and mid inferior wall and inferoseptum with [id number] diffuse hypokinesis noted otherwise, LVEF 35-40%. Moderate to severe mitral regurgitation observed as well as tricuspid regurgitation and a moderate-sized left pleural effusion BNP: 1097 Troponin: 138-->125--> 200 (H/O elevated troponins during prior admissions in similar range) CXR: Interval progression of the pulmonary edema with small bilateral pleural effusions EKG: appears to be sinus tachycardia, remains sinus tachy at this time In ER given 40 mg Lasix IV, received additional lasix this am s/p IV lasix on 02/22 Monitor I's and O's, daily weights Monitor on telemetry Cardiology consult, will appreciate recs Patient tolerating PO, encourage Metoprolol 25mg BID PO, liberalized holding parameters to ensure administration -Metoprolol 2.5mg q4h if not PO #Hypomagnesemia #Hypokalemia -Replace aggressively and repeat BMP at 1500 Difficulty encountered with intermittent PO and discomfort with IV site Difficulty trying to replace lytes given intermittent refusal for PO intake and caustic nature of IV #Acute metabolic encephalopathy, likely multifactorial *improving #MELAS #Elevated lactic acidosis #Prior left MCA infarction In ER T: 34.3 C rectal, P: 119, BP 109/94, 96% on room air. Upon reassessment T: 35.8 C rectally with Sumit hugger on. P: 117, BP 126/83, R: 20, 96% on room air Lactate: 6.6-->4.9-->7.9 CT Head: no acute intracranial abnormality UA: ?possible UTI vs contamination Urine culture NGTD Blood cultures 1/4 +, likely contaminate, Trend lactate, holding fast Unclear if lactate elevated from MELAS, CHF or underlying infection -Check abd/pelvis for source - constipation/fecal retention, bowel regimen below Continue empiric coverage at this time with Zosyn -MRSA nare negative, discontinue Vanc Monitor for delirium Neurology consult for guidance on MELAS optimization -TSH WNL -B12, folate WNL Encephalopathy likely 2/2 constipation, MSSA cellulitis, HF---continue management #Constipation/fecal retention CT ABD/P gastric mucosa appears hyperemic. There is mild colonic fecal retention. s/p suppository Docusate BID Protonix daily #Acute thrombus in right tibial vein, DVT #BLE foot wounds with signs of venous insufficiency #Cellulitis -Heparin drip in interim -Wound consult -Duplex negative for arterial, doppler with thrombus -ESR 5, CRP 2.45 -Broad coverage empirically while infectious work up pends, plan to d/c vanc -Given MSSA on BLE and notable improvement in erythema, will continue course with Cefazolin #CoNS bacteria, Positive blood culture -Likely contaminate 1/ Continue to monitor #Microcytosis MCV notably 76 this morning, and low since admission---iron studies ordered Iron 27, ferritin 39 Venofer 200mg x 3 doses planned, today 01/25 #Transaminitis -Downtrending, potentially congestive v related to ?infection -Repeat CMP in am -No localizing symptoms #Small bilateral pleural effusions -recent thoracentesis on 01/01/2024, no large accumulations that seem warranting procedure -monitor fluid status and oxygenation s/p IV lasix again on 02/22 #Mechanical Fall #Ambulatory dysfunction #Elevated CK *resolved Unwitnessed fall reported today. Reported progressive difficulty with ambulat ion CT head no acute intracranial abnormality C-spine CT: No acute cervical fracture Fall precautions PT/OT consult pending CK <500 on admission and no PADMA, will repeat--again could be 2/2 underlying MELAS, but will ensure fluids if concern for uptrend/rhabdo component #Hyperglycemia #DM I A1c: 8.2 on 01/09/2024 Unclear if patient has been giving herself insulin at home recently Glucose 371 in ER. VBG pH WNL Transitioned from insulin drip for hyperglycemia There was no concern for DKA, insulin drip to aid given increasing hyperglycemia and close monitor in DMTI -Basal bolus per aid from glycemic pharmacy #Anion Gap Metabolic acidosis *resolved -likely with elevated lactic acid, though improving DVT Prophylaxis heparin drip Admission and Anticipated Discharge Date Admission Date: February 21, 2024 Subjective Awake, less verbal today Not grimacing to abdominal exam or displaying any signs of over distress, however, distress mostly seems related to admission Physical Exam Constitutional: awake, minimal alertness, roving head Respiratory: diminished 2/2 effort Cardiovascular: tachycardic, no murmur Results & Data Results & Data Vital Signs (Past 12 Hours) Vital Signs Pulse Pulse Resp BP Pulse Ox O2 Del Method 02/25/24 11:07 106 H 18 112/79 97 Room Air 02/25/24 07:54 99 H 18 105/71 95 Room Air 02/25/24 07:00 101 H 02/25/24 03:13 100 H 16 94/68 L 95 Room Air 02/24/24 23:30 113 H Laboratory Results Short CBC 02/25/24 Range/Units 07:30 WBC 7.33 (4.8-10.8) K/ul Hgb 12.8 (12.0-16.0) g/dl Hct 38.8 (37.0-47.0) % Plt Count 133 (130-400) K/uL BMP 02/24/24 02/25/24 17:20 07:30 Sodium 134 L 130 L Potassium 2.6 L 3.4 L D Chloride 89 L 90 L Carbon Dioxide 35 H 28 BUN 31 H 32 H Creatinine 0.83 0.87 Glucose 134 H 123 H Calcium 8.1 L 8.2 L Medications Administered Home Medications Medication Instructions Recorded Confirmed Last Taken vit A 12,500 unit-zinc 12.5 1 cap PO QAM 05/14/20 02/21/24 07/14/23 [id number]-sficz-bilberry-herb #261 capsule ([employer]) aspirin 81 mg tablet,delayed 81 mg PO QAM #90 tabs 05/17/20 02/21/24 07/14/23 release nitroglycerin 0.4 mg sublingual 0.4 mg sublingual UD PRN chest 05/17/20 02/21/24 Unknown tablet (Nitrostat) pain #30 tabs evolocumab 140 mg/mL subcutaneous 140 mg subcut .[id number] 08/10/21 02/21/24 07/10/23 pen injector (Jaime Nicholson) coenzyme Q10 100 mg capsule 100 mg PO DAILY 01/14/22 02/21/24 07/14/23 (CoQ-10) furosemide 40 mg tablet (Lasix) 40 mg PO DAILY #30 tabs 01/12/24 02/21/24 Unknown insulin aspart U-100 100 unit/mL 3 unit (0.03 mL) subcut TIDM #15 mL 01/12/24 02/21/24 07/14/23 (3 mL) subcutaneous pen (Novolog FlexPen U-100 Insulin aspart) insulin glargine 100 unit/mL (3 15 unit (0.15 mL) subcut HS #15 mL 01/12/24 02/21/2423 mL) subcutaneous pen (Lantus Solostar U-100 Insulin) metoprolol succinate 25 mg 25 mg PO BID #60 tabs 01/12/24 02/21/24 Unknown tablet,extended release 24 hr Active Medications Generic Name Dose Route Start Last Admin Trade Name Freq PRN Reason Stop Dose Admin Aspirin 81 mg 02/22/24 09:00 02/25/24 08:54 Aspirin 81 Mg Ectab PO 03/23/24 08:59 Not Given QAM CLEMENTINA Dextrose 25 - 50 ml 02/22/24 10:15 02/22/24 10:19 Dextrose 50% 50 Ml Syringe IV 03/23/24 10:14 25 ml UD PRN Administration Hypoglycemia Protocol Protocol Docusate Sodium 100 mg 02/23/24 21:00 02/25/24 08:54 Docusate Sodium 100 Mg Cap PO 03/24/24 20:59 Not Given BID CLEMENTINA Furosemide 40 mg 02/21/24 21:10 02/22/24 06:14 Furosemide 40 Mg/4 Ml Vial IV 03/22/24 21:09 40 mg TID@0600,1200,1700 CLEMENTINA Administration Heparin Sodium/Dextrose 25,000 units in 500 mls @ 15 mls/hr 02/22/24 00:30 02/25/24 08:36 Heparin Sodium/Dextrose IV 03/23/24 00:29 750 units/hr .Q24H CLEMENTINA 15 mls/hr Titration Protocol 750 UNITS/HR Iron Sucrose 200 mg/ Sodium 110 mls @ 220 mls/hr 02/23/24 10:15 02/25/24 10:34 Chloride IV 02/26/24 10:14 Infused DAILY CLEMENTINA Infusion Cefazolin Sodium 2,000 mg in 15 mls @ 2.5 mls/min 02/24/24 08:00 02/25/24 09:02 Ancef 2000mg IV 03/02/24 07:59 2.5 mls/min Q8H CLEMENTINA Administration Insulin Aspart 0 units 02/22/24 11:30 02/25/24 08:53 Insulin Aspart Per Unit Charge SC 03/23/24 11:29 Not Given ACHS CLEMENTINA Protocol Insulin Glargine 8 units 02/24/24 09:00 02/25/24 09:04 Lantus Per Unit Charge SC 03/24/24 08:59 8 units QAM CLEMENTINA Administration Protocol Metoprolol Succinate 25 mg 02/22/24 09:00 02/25/24 08:54 Metoprolol Succ 25mg Ext Rel Tab PO 03/23/24 08:59 Not Given BID CLEMENTINA Pantoprazole Sodium 40 mg 02/25/24 09:00 02/25/24 08:54 Pantoprazole 40 Mg Tab PO 03/26/24 08:59 Not Given QAM CLEMENTINA Potassium Chloride 20 meq 02/24/24 19:15 02/25/24 08:54 Potassium Chloride Crtab 20 Meq Tabcr PO 03/25/24 19:14 Not Given QID CLEMENTINA (2) Fall Encounter type: initial encounter Qualified Code(s): W19.XXXA - Unspecified fall, initial encounter
[2024-02-25] MEDS: MICONAZOLE NITRATE 2% CR 30 GM TUBE EXT SCH (11:51)
--- NOTE | 2024-02-25 12:41 | Pharmacy Report ---
Pharmacy Glycemic Short Note 2 - Date of Service February 25, 2024 - Glycemic Short BSG Results (Last 24 hours): 02/24/24 02/24/24 02/24/24 16:18 17:20 20:23 Glucose 134 H POC Glucose 151 H 141 H 02/25/24 02/25/24 02/25/24 07:30 07:39 11:10 Glucose 123 H POC Glucose 123 H 255 H OUTPATIENT ANTIDIABETIC REGIMEN: * Lantus 15 units SC HS * Novolog 3 units SC TIDM * HbA1c: 8.2% (01/09/24) ASSESSMENT: 02/24: * Pt rec'd 12 units of insulin yesterday (8 units basal + 4 units bolus), with BSGs 72, 198, 151, 141. * Pre-lunch BSG was markedly elevated again today (255). It's unclear why this trend is occurring? BSGs are reasonable throughout the rest of the day. * Novolog parameters adjusted this morning to provide additional coverage with breakfast, however, it does not seem as though pt is regularly consuming breakfast, so tiighter carb coverage will not help in this situation. * No further changes at this time. 02/23: * Shanda received 21 units of insulin yesterday, 10 units basal + 11 units bolus. BSGs were: [phone] mg/dL. * Fasting BSG was 92 mg/dL this AM. Will reduce basal by 20% back down to 8 units daily. * Given drop in postprandial BSGs throughout last evening, will loosen carb ratio this AM. * Abx have been discontinued. Continues on heparin drip. 02/21: * CD is a 68 year old female w/ T1DM, admitted for acute/chronic HFrEF (likely related to medication non-compliance) * Patient w/ elevated anion gap (19) and hyperglycemia (BSG >300 mg/dL), but serum bicarbonate and VBG pH WNL - not believed to be DKA * Insulin infusion initiated for hyperglycemia - blood sugars trended down nicely on gtt w/ mild hypoglycemia late morning (69 mg/dL) * Diet initiated and insulin gtt transitioned to SC basal/bolus * Prior admission data suggests that patient is prone to hypoglycemia - will be conservative to start PLAN FOR INPATIENT GLYCEMIC CONTROL: * Basal insulin * Lantus 8 units SC daily * Bolus insulin * NovoLog per scale ACHS or Q6hrs while NPO * Goal Range: Low 120 mg/dL - High 150 mg/dL * Correction Factor: 40 mg/dL/unit * Nutritional / Prandial insulin per carb ratio of 1 unit per 13 grams CHO consumed
[2024-02-25] MEDS ORDERED: METOPROLOL TARTRATE 1 MG/ML VIAL IV SCH (13:30)
[2024-02-25] MEDS: METOPROLOL TARTRATE 1 MG/ML VIAL IV SCH (13:58)
[2024-02-25 15:29] LABS: ANTI-Xa, UFH(UnfractionatedHep 0.54 IU/ml (0.3-0.7)
[2024-02-25] MEDS: CARBOHYDRATES FOR HYPOGLYCEMIA PO PRN (16:39)
--- NOTE | 2024-02-25 18:00 | Cardiology Progress Note ---
Date of Service February 25, 2024 Assessment & Plan (1) Acute on chronic heart failure with reduced ejection fraction and diastolic dysfunction: (2) Bilateral pleural effusion: (3) Elevated troponin: (4) CAD (coronary artery disease): (5) MELAS (mitochondrial encephalopathy, lactic acidosis and stroke-like episodes): Plan IMPRESSION: Medically complex 68-year-old female admitted due to a fall but found to be in acute on chronic heart failure. Last LVEF of 35% per inpatient echo 12/2023. Chest x-ray with pleural effusion PLAN: Acute on chronic HFrEF: Volume status appears well compensated. Strict I's and O's. Daily weights. 2 g sodium diet. Monitor renal function. Replace potassium to a goal of 4.0 and mag of 2.0. -Lower extremity edema much improved compared to most recent outpatient visit. Elevated troponin: Troponin: 138-->125 (H/O elevated troponin levels during prior admissions in similar range). EKG without ischemic changes. Low likelihood for ACS. Sinus Tach: Patient now eating and drinking--agree with resuming oral metoprolol, currently taking 25 mg twice daily. Room to titrate if needed --I have significant concerns with regards to the patient able to be cared for effectively at home. She has not been adherent with her medications. I have concerns that [facility] facility placement may be the most appropriate neck step. Given her decline from cognitive status standpoint, palliative care also perhaps indicated. She is now a DNR/DNI. Case discussed with Dr. Cruz for the purpose of coordination of care. This chart was completed in part utilizing Speech Voice Recognition Software. Grammatical errors, random word insertions, pronoun errors, and incomplete sentences are an occasional consequence of this system due to software limit ations, ambient noise, and hardware issues. Any formal questions or concerns about the content, text, or information contained within the body of this dictation should be directly addressed to the provider for clarification. Admission and Anticipated Discharge Date Admission Date: February 21, 2024 Subjective Patient seen in follow-up. Family including her nephew at the bedside during my assessment. Patient with progressive cognitive decline. From my discussion with Dr. Cruz, the patient's cochlear implant battery is exhausted and this may impart be contributing to the difficulty with the patient being able to communicate. Physical Exam Constitutional: + ill appearing (chronically ill) and + cachectic; no acute distress Neck: normal visual inspection and trachea midline Respiratory: normal respiratory effort; no respiratory distress Auscultation: no rales, no rhonchi and no wheezes Cardiovascular: Rate/Rhythm: regular rhythm and + tachycardic Heart Sounds: normal S1, normal S2 and + murmur Vessels: no JVD Extremities: + edema (trace BLLE pitting edema ) Gastrointestinal (Abdomen): normal bowel sounds, soft, nontender, no hepatosplenomegaly Psychiatric: Orientation: + not oriented to person, + not oriented to place and + not oriented to time Results & Data Vital Signs (Past 12 Hours) Vital Signs Temp Pulse Pulse Resp BP BP Pulse Ox 02/25/24 16:13 36.6 C 110 H 16 106/76 97 02/25/24 14:10 98 H 02/25/24 13:58 110 H 02/25/24 11:07 106 H 18 112/79 97 02/25/24 07:54 99 H 18 105/71 95 02/25/24 07:00 101 H O2 Del Method 02/25/24 16:13 Room Air 02/25/24 14:10 02/25/24 13:58 02/25/24 11:07 Room Air 02/25/24 07:54 Room Air 02/25/24 07:00
--- NOTE | 2024-02-25 18:15 | Communication Note ---
Date of Service: February 25, 2024 Brief Pall Med Note Consult received/appreciated and chart reviewed Attempted to see pt who was not available Updated primary team who advised they met with son and other relatives for a detailed GOC meeting and a lot of conflict was noted. It was agreed I will re approach tomorrow and follow up with family. Pt not seen and NO charge submitted. TS 15min Thank you for allowing us to participate in the ongoing care of this patient. Please don't hesitate to call or page with any additional concerns. Dr. Jemma Ervin DNP Director, Palliative Care
[2024-02-25] MEDS: EUCERIN CR 120 GM JAR EXT SCH (21:19)
[2024-02-26 06:10] LABS: ANTI-Xa, UFH(UnfractionatedHep 0.39 IU/ml (0.3-0.7)
[2024-02-26 06:26] LABS: Hematocrit (blood only) 41.4 % (37.0-47.0); Hemoglobin 13.5 g/dl (12.0-16.0); Mean Corpuscular Hemoglobin 25.2 pg (25.0-34.0); Mean Corpuscular Hgb Conc 32.6 g/dL (32.0-36.0); Mean Corpuscular Volume 77.4 fL (80.0-100.0); Mean Platelet Volume 12.7 fL (9.4-12.4); Nucleated RBC # (auto) 0.03 K/uL (0.00-0.12); Nucleated RBC % (auto) 0.4 %; Platelet Count 139 K/uL (130-400); RDW Standard Deviation 46.5 fL (36.4-46.3); Red Blood Count 5.35 M/uL (4.20-5.40); White Blood Count 7.44 K/ul (4.8-10.8)
[2024-02-26 06:28] LABS: Calcium 8.5 mg/dl (8.6-10.3); Creatinine Clr Calc Pharmacy 50.2 ml/min; Est GFR (African American) 85.8 ml/min; Magnesium 2.2 mg/dl (1.7-2.4); Phosphorus 2.6 mg/dl (2.5-4.9); Potassium 3.4 mmol/L (3.5-5.1)
[2024-02-26] MEDS: LANTUS PER UNIT CHARGE SC SCH (08:46)
--- NOTE | 2024-02-26 11:19 | Palliative Care Consultation ---
Date of Consultation February 26, 2024 Assessment & Plan (1) AMS (altered mental status): Altered mental status type: delirium Qualified Code(s): R41.0 - Disorientation, unspecified (2) Cognitive and behavioral changes: (3) Weakness generalized: (4) Falls frequently: (5) Chest pain due to CAD: (6) Discussion about advance care planning held with family member: A 45min face to face ACP meeting was held in family meeting room with pt son/POA During our meeting, we discussed goals of care + serious illness planning. He did not know about hospice so we spent some time reviewing those services. We discussed the goals of hospice as a patient service and the goals of care; we discussed EOL trajectories and transitions torrie the emotional impact of realizing mortality as a concrete reality from prior abstract considerations. Pt was reassured that no matter where they are along this trajectory, they are not alone - their medical team will remain by their side through their journey. Discussed the pros/cons of accepting help when especially weakened and distressed by pain-which would also help provide relief/decrease caregiver burden/strain. I provided education about the hospice benefit: an interdisciplinary program offered by nurses, nurses aides, social workers, chaplains and a medical records custodian for patients with a terminal condition and a life expectancy of less than 6 months. This is covered by Medicare at 100%/no out of pocket expense to patient and all meds/supplies needed by patient for the reason they are on hospice are paid for/covered by hospice. The goal is assure quality of life of the patient in their home setting (home, shelter, inpatient hospice setting) by providing symptoms management, psychosocial and spiritual support. However, they cannot offer 24 hours care and if the family is unable to provide that care, they will have to consider personal care with out of pocket cost vs. shelter placement. We discussed the goals of hospice as a patient service and the goals of care; we discussed EOL trajectories and transitions torrie the emotional impact of realizing mortality as a concrete reality from prior abstract considerations. Pt was reassured that no matter where they are along this trajectory, they are not alone - their medical team will remain by their side through their journey. Discussed the pros/cons of accepting help when especially weakened and distressed by pain-which would also help provide relief/decrease caregiver burden/strain. He is leaning towards a focused plan of comfort, and told me pt has been telling the family for a month or so she feels her time on earth is nearing its end and she will soon reunite with her daughter who 3-4 years ago. She told her son she believes she will in next few months and that she is ready to go. He is going to speak with extended family tonight to see if they would be willing to help support her care needs on hospice at home, will let CM know tomorrow. (7) Palliative care by specialist: Met with pt family. Provided overview of Palliative Medicine, a subspecialty that provides specialized medical care for people living with a serious illness by offering a focus on quality of life. Palliative Medicine is often conflated with hospice: I advised patient/family that Palliative and hospice can be partners but we are not the same. It is important to understand the difference so that we may be informed, and not afraid. Palliative Medicine works to improve QOL through reduction of symptom burden/more control over their illness, for both the patient and family. Palliative medicine clinicians are board certified, specially-trained and another member of the patient's medical care team. We often provide an extra layer of support because our care is based on the needs of the patient, not the prognosis; as such, it's appropriate at any age/advancing stage of a serious illness and can be provided along with curative treatment. Palliative Medicine clinicians are also trained in advanced communication methodologies, to facilitate complex discussions about advanced illness planning, which are needed to help assure that the treatment choices match the patient's goals, aka delivering Goal Concordant care. Finally, we discussed that hospice is a visiting nurse service that focuses on care delivered at the very end of life for patients with terminal illness, with life expectancy less than 6 month. (8) MELAS (mitochondrial encephalopathy, lactic acidosis and stroke-like episodes): (9) NSTEMI (non-ST elevated myocardial infarction): Plan * ACP disucssion above * Of note, I am in clinic on and unavailable to hospital but you can page me as needed and I will reply as able in between clinic patients. Thank you for allowing us to participate in the ongoing care of this patient. Please don't hesitate to call or page with any additional concerns. Dr. Jemma Ervin DNP Director, Palliative Care History of Present Illness Reason for Consultation: son on edge, wants rehab, less likely able Attending Physician: Leeanne Wu MD History of Present Illness 68yo female admitted 02/21/24 with acute exacerbation of CHF; elevated troponin, tachycardia, hyperglycemia, bilateral pleural effusion, s/p fall with resulting RLE cellulitis +progressive cognitive decline ED notes indicate family reported she had +AMS and was found down by son who reported "hearing a thud" and went upstairs to check on her/ Pt has prior hx strokes that left her with hearing deficits and she has aphasia. She did not require supplemental oxygen on arrival Chart review indicates a long hx non compliance reported by family PMH: type 1 diabetes, diabetic polyneuropathy, hyperlipidemia, CHF//longtime pt of Dr Thomas; chronic rhinitis, CAD s/p stent, hypertension, history of CVA, aphasia poststroke, Schatzki"s ring, Mnire's disease,MELAS, cochlear implant in place, She was recently in the hospital for acute CHF, discharged to home 01/12/2024: admitted acute on chronic HFrEF + diastolic dysfunction. She had pulmonary edema + pleural effusions; Echo 12/29/19 reported EF 35-40% with moderate to severe mitral regurg. She has had numerous admissions in the past year: 02/21/24 = present admission 01/08 - 01/12/24: Acute on chronic heart failure with reduced ejection fraction and diastolic dysfunction 12/29 - 01/02/24: acute CHF with evidence of volume overload on exam, hypoxia, b/l pleural effusions 10/04/23 ED visit and dc 08/05/23 ED visit and dc 07/15 - 07/16/23: Chest pain r/o ACS;Lexiscan nuclear stress test demonstrates normal perfusion. There is no evidence of inducible ischemia. Normal LV function and wall motion. 05/07 - 05/07/23: right foot pain after injury and left sided chest pain, resolving with 2 SL nitro; Echo showed normal LVEF without wall motion abnormalities and stable findings. Dr Thomas yesterday noted "I have significant concerns with regards to the patient able to be cared for effectively at home. She has not been adherent with her medications. I have concerns that residential facility placement may be the most appropriate neck step. Given her decline from cognitive status standpoint, palliative care also perhaps indicated." Allergies Allergy/AdvReac Type Severity Reaction Status Date / Time atorvastatin AdvReac Intermediate myalgias, Verified 01/08/24 21:34 dysarthria prednisone AdvReac Intermediate metabolic-h Verified 01/08/24 21:34 yperglycemi a Home Medications Medication Instructions Recorded Confirmed Type vit A 12,500 unit-zinc 12.5 1 cap PO QAM 05/14/20 02/21/24 History pg-zfirqh-fgpla-bilberry-herb #261 capsule (Lipotriad Vision Support) aspirin 81 mg tablet,delayed 81 mg PO QAM #90 tabs 05/17/20 02/21/24 Rx release nitroglycerin 0.4 mg sublingual 0.4 mg sublingual UD PRN chest 05/17/20 02/21/24 Rx tablet (Nitrostat) pain #30 tabs evolocumab 140 mg/mL subcutaneous 140 mg subcut .[id number] 08/10/21 02/21/24 History pen injector (Jaime Nicholson) coenzyme Q10 100 mg capsule 100 mg PO DAILY 01/14/22 02/21/24 History (CoQ-10) furosemide 40 mg tablet (Lasix) 40 mg PO DAILY #30 tabs 01/12/24 02/21/24 Rx insulin aspart U-100 100 unit/mL 3 unit (0.03 mL) subcut TIDM #15 mL 01/12/24 02/21/24 Rx (3 mL) subcutaneous pen (Novolog FlexPen U-100 Insulin aspart) insulin glargine 100 unit/mL (3 15 unit (0.15 mL) subcut HS #15 mL 01/12/24 02/21/24 Rx mL) subcutaneous pen (Lantus Solostar U-100 Insulin) metoprolol succinate 25 mg 25 mg PO BID #60 tabs 01/12/24 02/21/24 Rx tablet,extended release 24 hr Patient History Medical History (Updated 02/26/24 @ 11:45 by Jemma Ervin DNP) Discussion about advance care planning held with family member Palliative care by specialist Chest pain due to CAD Falls frequently Weakness generalized Cognitive and behavioral changes Bilateral pleural effusion Unspecified hereditary retinal dystrophy Bilateral sensorineural hearing loss Bilateral myopia 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 Degeneration of cervical intervertebral disc History of TMJ disorder Hemiplegia Diabetic polyneuropathy Aphasia as late effect of cerebrovascular accident CAD (coronary artery disease) Statin intolerance Atherosclerosis of coronary artery Macular degeneration Mnire's disease Schatzki's ring MELAS (mitochondrial encephalopathy, lactic acidosis and stroke-like episodes) HLD (hyperlipidemia) Type 1 diabetes mellitus Hypertension Surgical History S/P coronary artery stent placement History of heart artery stent History of cochlear implant Left in 2014 History of left heart catheterization 07/2019 which revealed 30% proximal LAD otherwise clean coronaries History of colonoscopy with polypectomy History of cholecystectomy History of hysterectomy Family History Mother Coronary heart disease, Onset Age: 70 Father Coronary heart disease, Onset Age: 50 Daughter MELAS (mitochondrial encephalopathy, lactic acidosis and stroke-like episodes) Social History Smoking Status: Never smoker Tobacco Type: Cigarettes Second Hand Exposure: No; Do You Dip or Chew Tobacco: No; Hx Alcohol Use: No Hx Substance Use: No Preferred Language: Welsh Communication Ability: Impaired Communication Ability Comment: Cochlear implant, communication difficult at times Hearing Ability: Cochlear Implant Superintendent Of Generation Required: No Beliefs That Will Affect Care: None marital status: Current Living Situation: Family Current Living Situation Comment: with son Lee current occupational status: retired and disabled How many Children do You have: 2 Other Information That Helps Us Care for You: No Feels Safe at Home: Yes Safety Concerns: Feels Safe At This Time Assistive Devices: Walker Assistive Devices Comment: Chochlar implant Review of Systems Review of Systems: Unobtainable due to cognitive status Physical Exam Physical Exam: Restless, unable to follow commands Slightly confused but does orient to name garbled speech with occasional clearer speech hearing aide in place on left son at bedside bitemp wasting perrla resp effort increased with use of accessory muscles, there is conversational dyspnea tachy s1s2 scaphoid abdomen, BS+ generalized weakness skin is pale, cool, no mottling Results & Data Vital Signs (Past 12 Hours) Vital Signs Temp Pulse Pulse Resp BP BP BP 02/26/24 08:13 36.7 C 100 H 18 108/78 02/26/24 05:47 92 H 02/26/24 05:16 98 H 117/76 02/26/24 03:56 36.1 C L 02/26/24 03:08 98 H 16 117/75 02/26/24 01:59 93 H 02/26/24 01:04 100 H 131/83 02/26/24 00:47 99 H 131/83 02/25/24 23:30 105 H Pulse Ox O2 Del Method 02/26/24 08:13 97 Room Air, Non-rebreather 02/26/24 05:47 02/26/24 05:16 02/26/24 03:56 02/26/24 03:08 100 Room Air 02/26/24 01:59 02/26/24 01:04 02/26/24 00:47 02/25/24 23:30 Laboratory Results 02/26/24 02/26/24 02/26/24 Range/Units 11:25 07:47 07:22 WBC (4.8-10.8) K/ul RBC (4.20-5.40) M/uL Hgb (12.0-16.0) g/dl Hct (37.0-47.0) % MCV (80.0-100.0) fL MCH (25.0-34.0) pg MCHC (32.0-36.0) g/dL RDW Std Deviation (36.4-46.3) fL RDW Coeff of Marj (11.5-14.5) % Plt Count (130-400) K/uL MPV (9.4-12.4) fL Immature Gran % (Auto) % Neut % (Auto) % Lymph % (Auto) % [place] % (Auto) % Eos % (Auto) % Baso % (Auto) % Neut # (Auto) (1.40-6.50) K/uL Lymph # (Auto) (1.20-3.40) K/uL [place] # (Auto) (0.11-0.59) K/uL Eos # (Auto) (0.00-0.50) K/uL Baso # (Auto) (0.00-0.20) K/uL Immature Gran # (Auto) (0.01-0.20) K/uL Absolute Nucleated RBC (0.00-0.12) K/uL Nucleated RBC % (auto) % Polychromasia Ovalocytes Echinocytes ESR (0-30) mm/hr PT (9.0-12.0) Seconds INR (0.9-1.1) APTT (21-31) Seconds PTT Ratio Heparin Anti-Xa, Unfract (0.3-0.7) IU/ml VBG pH (7.36-7.41) VBG pCO2 (38-50) mmHg VBG pO2 mmHg VBG HCO3 mmol/L VBG O2 Saturation % VBG Base Excess mEq/L Sodium (136-145) mmol/L Potassium (3.5-5.1) mmol/L Chloride (98-107) mmol/L Carbon Dioxide (21-32) mmol/L Anion Gap (3-11) BUN (6-23) mg/dl Creatinine (0.6-1.2) mg/dl Est Cr Clr Drug Dosing ml/min Est GFR ( Amer) ml/min Est GFR (Non-Af Amer) ml/min BUN/Creatinine Ratio (10-20) Glucose (70-99(Fasting)) mg/dl POC Glucose 158 H 196 H 66 L* (70-99) mg/dl Lactate (0.4-2.0) mmol/L Calcium (8.6-10.3) mg/dl Phosphorus (2.5-4.9) mg/dl Magnesium (1.7-2.4) mg/dl Iron (35-150) mcg/dl TIBC (250-450) mcg/dl Unsaturated IBC (155-355) mcg/dl Transferrin % Sat (15-50) % Ferritin (8-388) ng/ml Total Bilirubin (0.2-1.0) mg/dl AST (13-39) U/L ALT (7-52) U/L Alkaline Phosphatase (34-104) U/L Ammonia (18-72) umol/L Total Creatine Kinase (26-192) U/L Troponin I High Sens (0-14) pg/ml C-Reactive Protein (0-0.5) mg/dl B-Natriuretic Peptide (0-100) pg/ml Total Protein (6.0-8.3) gm/dl Albumin (3.4-5.0) gm/dl Globulin (2.5-4.0) gm/dl Albumin/Globulin Ratio (0.9-2) Vitamin B12 (180-914) pg/ml Folate (>5.38) ng/ml TSH (0.300-4.500) uIu/ml Urine Color Urine Appearance (Clear) Urine pH (4.5-7.5) Ur Specific [place] (1.000-1.030) Urine Protein (Negative) Urine Glucose (UA) (Negative) Urine Ketones (Negative) Urine Blood (Negative) Urine Nitrite (Negative) Urine Bilirubin (Negative) Urine Urobilinogen (Negative) Ur Leukocyte Esterase (Negative) Urine WBC (Auto) (0-5) /hpf Urine RBC (Auto) (0-4) /hpf U Hyaline Cast (Auto) (0-5) /lpf U Epithel Cells (Auto) (0-5) /lpf Urine Bacteria (Auto) (Negative) Urine RBC (0-4) /hpf Urine WBC (0-5) /hpf Ur Epithelial Cells (0-5) /lpf Urine Bacteria (Negative) Nasal Screen MRSA (PCR) (Negative) Staphylococcus sp PCR (NotDetected) mecA/C-Methicil Resis Gene (NotDetected) Staph epidermidis (PCR) (NotDetected) Bld Cult ID Panel PCR (NotDetected) 02/26/24 02/26/24 02/26/24 Range/Units 07:21 05:29 03:49 WBC 7.44 (4.8-10.8) K/ul RBC 5.35 (4.20-5.40) M/uL Hgb 13.5 (12.0-16.0) g/dl Hct 41.4 (37.0-47.0) % MCV 77.4 L (80.0-100.0) fL MCH 25.2 (25.0-34.0) pg MCHC 32.6 (32.0-36.0) g/dL RDW Std Deviation 46.5 H (36.4-46.3) fL RDW Coeff of Marj 18.0 H (11.5-14.5) % Plt Count 139 (130-400) K/uL MPV 12.7 H (9.4-12.4) fL Immature Gran % (Auto) % Neut % (Auto) % Lymph % (Auto) % [place] % (Auto) % Eos % (Auto) % Baso % (Auto) % Neut # (Auto) (1.40-6.50) K/uL Lymph # (Auto) (1.20-3.40) K/uL [place] # (Auto) (0.11-0.59) K/uL Eos # (Auto) (0.00-0.50) K/uL Baso # (Auto) (0.00-0.20) K/uL Immature Gran # (Auto) (0.01-0.20) K/uL Absolute Nucleated RBC 0.03 (0.00-0.12) K/uL Nucleated RBC % (auto) 0.4 % Polychromasia Ovalocytes Echinocytes ESR (0-30) mm/hr PT (9.0-12.0) Seconds INR (0.9-1.1) APTT (21-31) Seconds PTT Ratio Heparin Anti-Xa, Unfract 0.39 (0.3-0.7) IU/ml VBG pH (7.36-7.41) VBG pCO2 (38-50) mmHg VBG pO2 mmHg VBG HCO3 mmol/L VBG O2 Saturation % VBG Base Excess mEq/L Sodium 132 L (136-145) mmol/L Potassium 3.4 L (3.5-5.1) mmol/L Chloride 89 L (98-107) mmol/L Carbon Dioxide 33 H (21-32) mmol/L Anion Gap 10 (3-11) BUN 32 H (6-23) mg/dl Creatinine 0.82 (0.6-1.2) mg/dl Est Cr Clr Drug Dosing 50.2 ml/min Est GFR ( Amer) 85.8 ml/min Est GFR (Non-Af Amer) 74.0 ml/min BUN/Creatinine Ratio 39.0 H (10-20) Glucose 59 L (70-99(Fasting)) mg/dl POC Glucose 67 L* 83 (70-99) mg/dl Lactate (0.4-2.0) mmol/L Calcium 8.5 L (8.6-10.3) mg/dl Phosphorus 2.6 (2.5-4.9) mg/dl Magnesium 2.2 (1.7-2.4) mg/dl Iron (35-150) mcg/dl TIBC (250-450) mcg/dl Unsaturated IBC (155-355) mcg/dl Transferrin % Sat (15-50) % Ferritin (8-388) ng/ml Total Bilirubin (0.2-1.0) mg/dl AST (13-39) U/L ALT (7-52) U/L Alkaline Phosphatase (34-104) U/L Ammonia (18-72) umol/L Total Creatine Kinase (26-192) U/L Troponin I High Sens (0-14) pg/ml C-Reactive Protein (0-0.5) mg/dl B-Natriuretic Peptide (0-100) pg/ml Total Protein (6.0-8.3) gm/dl Albumin (3.4-5.0) gm/dl Globulin (2.5-4.0) gm/dl Albumin/Globulin Ratio (0.9-2) Vitamin B12 (180-914) pg/ml Folate (>5.38) ng/ml TSH (0.300-4.500) uIu/ml Urine Color Urine Appearance (Clear) Urine pH (4.5-7.5) Ur Specific [place] (1.000-1.030) Urine Protein (Negative) Urine Glucose (UA) (Negative) Urine Ketones (Negative) Urine Blood (Negative) Urine Nitrite (Negative) Urine Bilirubin (Negative) Urine Urobilinogen (Negative) Ur Leukocyte Esterase (Negative) Urine WBC (Auto) (0-5) /hpf Urine RBC (Auto) (0-4) /hpf U Hyaline Cast (Auto) (0-5) /lpf U Epithel Cells (Auto) (0-5) /lpf Urine Bacteria (Auto) (Negative) Urine RBC (0-4) /hpf Urine WBC (0-5) /hpf Ur Epithelial Cells (0-5) /lpf Urine Bacteria (Negative) Nasal Screen MRSA (PCR) (Negative) Staphylococcus sp PCR (NotDetected) mecA/C-Methicil Resis Gene (NotDetected) Staph epidermidis (PCR) (NotDetected) Bld Cult ID Panel PCR (NotDetected) 02/26/24 02/25/24 02/25/24 Range/Units 00:20 23:57 23:57 WBC (4.8-10.8) K/ul RBC (4.20-5.40) M/uL Hgb (12.0-16.0) g/dl Hct (37.0-47.0) % MCV (80.0-100.0) fL MCH (25.0-34.0) pg MCHC (32.0-36.0) g/dL RDW Std Deviation (36.4-46.3) fL RDW Coeff of Marj (11.5-14.5) % Plt Count (130-400) K/uL MPV (9.4-12.4) fL Immature Gran % (Auto) % Neut % (Auto) % Lymph % (Auto) % [place] % (Auto) % Eos % (Auto) % Baso % (Auto) % Neut # (Auto) (1.40-6.50) K/uL Lymph # (Auto) (1.20-3.40) K/uL [place] # (Auto) (0.11-0.59) K/uL Eos # (Auto) (0.00-0.50) K/uL Baso # (Auto) (0.00-0.20) K/uL Immature Gran # (Auto) (0.01-0.20) K/uL Absolute Nucleated RBC (0.00-0.12) K/uL Nucleated RBC % (auto) % Polychromasia Ovalocytes Echinocytes ESR (0-30) mm/hr PT (9.0-12.0) Seconds INR (0.9-1.1) APTT (21-31) Seconds PTT Ratio Heparin Anti-Xa, Unfract (0.3-0.7) IU/ml VBG pH (7.36-7.41) VBG pCO2 (38-50) mmHg VBG pO2 mmHg VBG HCO3 mmol/L VBG O2 Saturation % VBG Base Excess mEq/L Sodium (136-145) mmol/L Potassium (3.5-5.1) mmol/L Chloride (98-107) mmol/L Carbon Dioxide (21-32) mmol/L Anion Gap (3-11) BUN (6-23) mg/dl Creatinine (0.6-1.2) mg/dl Est Cr Clr Drug Dosing ml/min Est GFR ( Amer) ml/min Est GFR (Non-Af Amer) ml/min BUN/Creatinine Ratio (10-20) Glucose (70-99(Fasting)) mg/dl POC Glucose 170 H 69 L* 81 (70-99) mg/dl Lactate (0.4-2.0) mmol/L Calcium (8.6-10.3) mg/dl Phosphorus (2.5-4.9) mg/dl Magnesium (1.7-2.4) mg/dl Iron (35-150) mcg/dl TIBC (250-450) mcg/dl Unsaturated IBC (155-355) mcg/dl Transferrin % Sat (15-50) % Ferritin (8-388) ng/ml Total Bilirubin (0.2-1.0) mg/dl AST (13-39) U/L ALT (7-52) U/L Alkaline Phosphatase (34-104) U/L Ammonia (18-72) umol/L Total Creatine Kinase (26-192) U/L Troponin I High Sens (0-14) pg/ml C-Reactive Protein (0-0.5) mg/dl B-Natriuretic Peptide (0-100) pg/ml Total Protein (6.0-8.3) gm/dl Albumin (3.4-5.0) gm/dl Globulin (2.5-4.0) gm/dl Albumin/Globulin Ratio (0.9-2) Vitamin B12 (180-914) pg/ml Folate (>5.38) ng/ml TSH (0.300-4.500) uIu/ml Urine Color Urine Appearance (Clear) Urine pH (4.5-7.5) Ur Specific [place] (1.000-1.030) Urine Protein (Negative) Urine Glucose (UA) (Negative) Urine Ketones (Negative) Urine Blood (Negative) Urine Nitrite (Negative) Urine Bilirubin (Negative) Urine Urobilinogen (Negative) Ur Leukocyte Esterase (Negative) Urine WBC (Auto) (0-5) /hpf Urine RBC (Auto) (0-4) /hpf U Hyaline Cast (Auto) (0-5) /lpf U Epithel Cells (Auto) (0-5) /lpf Urine Bacteria (Auto) (Negative) Urine RBC (0-4) /hpf Urine WBC (0-5) /hpf Ur Epithelial Cells (0-5) /lpf Urine Bacteria (Negative) Nasal Screen MRSA (PCR) (Negative) Staphylococcus sp PCR (NotDetected) mecA/C-Methicil Resis Gene (NotDetected) Staph epidermidis (PCR) (NotDetected) Bld Cult ID Panel PCR (NotDetected) 02/25/24 02/25/24 02/25/24 Range/Units 23:56 19:49 17:00 WBC (4.8-10.8) K/ul RBC (4.20-5.40) M/uL Hgb (12.0-16.0) g/dl Hct (37.0-47.0) % MCV (80.0-100.0) fL MCH (25.0-34.0) pg MCHC (32.0-36.0) g/dL RDW Std Deviation (36.4-46.3) fL RDW Coeff of Marj (11.5-14.5) % Plt Count (130-400) K/uL MPV (9.4-12.4) fL Immature Gran % (Auto) % Neut % (Auto) % Lymph % (Auto) % [place] % (Auto) % Eos % (Auto) % Baso % (Auto) % Neut # (Auto) (1.40-6.50) K/uL Lymph # (Auto) (1.20-3.40) K/uL [place] # (Auto) (0.11-0.59) K/uL Eos # (Auto) (0.00-0.50) K/uL Baso # (Auto) (0.00-0.20) K/uL Immature Gran # (Auto) (0.01-0.20) K/uL Absolute Nucleated RBC (0.00-0.12) K/uL Nucleated RBC % (auto) % Polychromasia Ovalocytes Echinocytes ESR (0-30) mm/hr PT (9.0-12.0) Seconds INR (0.9-1.1) APTT (21-31) Seconds PTT Ratio Heparin Anti-Xa, Unfract (0.3-0.7) IU/ml VBG pH (7.36-7.41) VBG pCO2 (38-50) mmHg VBG pO2 mmHg VBG HCO3 mmol/L VBG O2 Saturation % VBG Base Excess mEq/L Sodium (136-145) mmol/L Potassium (3.5-5.1) mmol/L Chloride (98-107) mmol/L Carbon Dioxide (21-32) mmol/L Anion Gap (3-11) BUN (6-23) mg/dl Creatinine (0.6-1.2) mg/dl Est Cr Clr Drug Dosing ml/min Est GFR ( Amer) ml/min Est GFR (Non-Af Amer) ml/min BUN/Creatinine Ratio (10-20) Glucose (70-99(Fasting)) mg/dl POC Glucose 63 L* 100 H 80 (70-99) mg/dl Lactate (0.4-2.0) mmol/L Calcium (8.6-10.3) mg/dl Phosphorus (2.5-4.9) mg/dl Magnesium (1.7-2.4) mg/dl Iron (35-150) mcg/dl TIBC (250-450) mcg/dl Unsaturated IBC (155-355) mcg/dl Transferrin % Sat (15-50) % Ferritin (8-388) ng/ml Total Bilirubin (0.2-1.0) mg/dl AST (13-39) U/L ALT (7-52) U/L Alkaline Phosphatase (34-104) U/L Ammonia (18-72) umol/L Total Creatine Kinase (26-192) U/L Troponin I High Sens (0-14) pg/ml C-Reactive Protein (0-0.5) mg/dl B-Natriuretic Peptide (0-100) pg/ml Total Protein (6.0-8.3) gm/dl Albumin (3.4-5.0) gm/dl Globulin (2.5-4.0) gm/dl Albumin/Globulin Ratio (0.9-2) Vitamin B12 (180-914) pg/ml Folate (>5.38) ng/ml TSH (0.300-4.500) uIu/ml Urine Color Urine Appearance (Clear) Urine pH (4.5-7.5) Ur Specific [place] (1.000-1.030) Urine Protein (Negative) Urine Glucose (UA) (Negative) Urine Ketones (Negative) Urine Blood (Negative) Urine Nitrite (Negative) Urine Bilirubin (Negative) Urine Urobilinogen (Negative) Ur Leukocyte Esterase (Negative) Urine WBC (Auto) (0-5) /hpf Urine RBC (Auto) (0-4) /hpf U Hyaline Cast (Auto) (0-5) /lpf U Epithel Cells (Auto) (0-5) /lpf Urine Bacteria (Auto) (Negative) Urine RBC (0-4) /hpf Urine WBC (0-5) /hpf Ur Epithelial Cells (0-5) /lpf Urine Bacteria (Negative) Nasal Screen MRSA (PCR) (Negative) Staphylococcus sp PCR (NotDetected) mecA/C-Methicil Resis Gene (NotDetected) Staph epidermidis (PCR) (NotDetected) Bld Cult ID Panel PCR (NotDetected) 02/25/24 02/25/24 02/25/24 Range/Units 16:31 14:17 11:10 WBC (4.8-10.8) K/ul RBC (4.20-5.40) M/uL Hgb (12.0-16.0) g/dl Hct (37.0-47.0) % MCV (80.0-100.0) fL MCH (25.0-34.0) pg MCHC (32.0-36.0) g/dL RDW Std Deviation (36.4-46.3) fL RDW Coeff of Marj (11.5-14.5) % Plt Count (130-400) K/uL MPV (9.4-12.4) fL Immature Gran % (Auto) % Neut % (Auto) % Lymph % (Auto) % [place] % (Auto) % Eos % (Auto) % Baso % (Auto) % Neut # (Auto) (1.40-6.50) K/uL Lymph # (Auto) (1.20-3.40) K/uL [place] # (Auto) (0.11-0.59) K/uL Eos # (Auto) (0.00-0.50) K/uL Baso # (Auto) (0.00-0.20) K/uL Immature Gran # (Auto) (0.01-0.20) K/uL Absolute Nucleated RBC (0.00-0.12) K/uL Nucleated RBC % (auto) % Polychromasia Ovalocytes Echinocytes ESR (0-30) mm/hr PT (9.0-12.0) Seconds INR (0.9-1.1) APTT (21-31) Seconds PTT Ratio Heparin Anti-Xa, Unfract 0.54 (0.3-0.7) IU/ml VBG pH (7.36-7.41) VBG pCO2 (38-50) mmHg VBG pO2 mmHg VBG HCO3 mmol/L VBG O2 Saturation % VBG Base Excess mEq/L Sodium (136-145) mmol/L Potassium (3.5-5.1) mmol/L Chloride (98-107) mmol/L Carbon Dioxide (21-32) mmol/L Anion Gap (3-11) BUN (6-23) mg/dl Creatinine (0.6-1.2) mg/dl Est Cr Clr Drug Dosing ml/min Est GFR ( Amer) ml/min Est GFR (Non-Af Amer) ml/min BUN/Creatinine Ratio (10-20) Glucose (70-99(Fasting)) mg/dl POC Glucose 57 L* 255 H (70-99) mg/dl Lactate (0.4-2.0) mmol/L Calcium (8.6-10.3) mg/dl Phosphorus (2.5-4.9) mg/dl Magnesium (1.7-2.4) mg/dl Iron (35-150) mcg/dl TIBC (250-450) mcg/dl Unsaturated IBC (155-355) mcg/dl Transferrin % Sat (15-50) % Ferritin (8-388) ng/ml Total Bilirubin (0.2-1.0) mg/dl AST (13-39) U/L ALT (7-52) U/L Alkaline Phosphatase (34-104) U/L Ammonia (18-72) umol/L Total Creatine Kinase (26-192) U/L Troponin I High Sens (0-14) pg/ml C-Reactive Protein (0-0.5) mg/dl B-Natriuretic Peptide (0-100) pg/ml Total Protein (6.0-8.3) gm/dl Albumin (3.4-5.0) gm/dl Globulin (2.5-4.0) gm/dl Albumin/Globulin Ratio (0.9-2) Vitamin B12 (180-914) pg/ml Folate (>5.38) ng/ml TSH (0.300-4.500) uIu/ml Urine Color Urine Appearance (Clear) Urine pH (4.5-7.5) Ur Specific [place] (1.000-1.030) Urine Protein (Negative) Urine Glucose (UA) (Negative) Urine Ketones (Negative) Urine Blood (Negative) Urine Nitrite (Negative) Urine Bilirubin (Negative) Urine Urobilinogen (Negative) Ur Leukocyte Esterase (Negative) Urine WBC (Auto) (0-5) /hpf Urine RBC (Auto) (0-4) /hpf U Hyaline Cast (Auto) (0-5) /lpf U Epithel Cells (Auto) (0-5) /lpf Urine Bacteria (Auto) (Negative) Urine RBC (0-4) /hpf Urine WBC (0-5) /hpf Ur Epithelial Cells (0-5) /lpf Urine Bacteria (Negative) Nasal Screen MRSA (PCR) (Negative) Staphylococcus sp PCR (NotDetected) mecA/C-Methicil Resis Gene (NotDetected) Staph epidermidis (PCR) (NotDetected) Bld Cult ID Panel PCR (NotDetected) 02/25/24 02/25/24 02/25/24 Range/Units 07:39 07:30 00:29 WBC 7.33 (4.8-10.8) K/ul RBC 5.06 (4.20-5.40) M/uL Hgb 12.8 (12.0-16.0) g/dl Hct 38.8 (37.0-47.0) % MCV 76.7 L (80.0-100.0) fL MCH 25.3 (25.0-34.0) pg MCHC 33.0 (32.0-36.0) g/dL RDW Std Deviation 45.2 (36.4-46.3) fL RDW Coeff of Marj 16.9 H (11.5-14.5) % Plt Count 133 (130-400) K/uL MPV 12.1 (9.4-12.4) fL Immature Gran % (Auto) % Neut % (Auto) % Lymph % (Auto) % [place] % (Auto) % Eos % (Auto) % Baso % (Auto) % Neut # (Auto) (1.40-6.50) K/uL Lymph # (Auto) (1.20-3.40) K/uL [place] # (Auto) (0.11-0.59) K/uL Eos # (Auto) (0.00-0.50) K/uL Baso # (Auto) (0.00-0.20) K/uL Immature Gran # (Auto) (0.01-0.20) K/uL Absolute Nucleated RBC (0.00-0.12) K/uL Nucleated RBC % (auto) % Polychromasia Ovalocytes Echinocytes ESR (0-30) mm/hr PT (9.0-12.0) Seconds INR (0.9-1.1) APTT (21-31) Seconds PTT Ratio Heparin Anti-Xa, Unfract 0.72 H* 0.73 H* (0.3-0.7) IU/ml VBG pH (7.36-7.41) VBG pCO2 (38-50) mmHg VBG pO2 mmHg VBG HCO3 mmol/L VBG O2 Saturation % VBG Base Excess mEq/L Sodium 130 L (136-145) mmol/L Potassium 3.4 L D (3.5-5.1) mmol/L Chloride 90 L (98-107) mmol/L Carbon Dioxide 28 (21-32) mmol/L Anion Gap 12 H (3-11) BUN 32 H (6-23) mg/dl Creatinine 0.87 (0.6-1.2) mg/dl Est Cr Clr Drug Dosing 51.4 ml/min Est GFR ( Amer) 79.9 ml/min Est GFR (Non-Af Amer) 68.9 ml/min BUN/Creatinine Ratio 36.8 H (10-20) Glucose 123 H (70-99(Fasting)) mg/dl POC Glucose 123 H (70-99) mg/dl Lactate (0.4-2.0) mmol/L Calcium 8.2 L (8.6-10.3) mg/dl Phosphorus 3.0 (2.5-4.9) mg/dl Magnesium 2.4 (1.7-2.4) mg/dl Iron (35-150) mcg/dl TIBC (250-450) mcg/dl Unsaturated IBC (155-355) mcg/dl Transferrin % Sat (15-50) % Ferritin (8-388) ng/ml Total Bilirubin (0.2-1.0) mg/dl AST (13-39) U/L ALT (7-52) U/L Alkaline Phosphatase (34-104) U/L Ammonia (18-72) umol/L Total Creatine Kinase (26-192) U/L Troponin I High Sens (0-14) pg/ml C-Reactive Protein (0-0.5) mg/dl B-Natriuretic Peptide (0-100) pg/ml Total Protein (6.0-8.3) gm/dl Albumin (3.4-5.0) gm/dl Globulin (2.5-4.0) gm/dl Albumin/Globulin Ratio (0.9-2) Vitamin B12 (180-914) pg/ml Folate (>5.38) ng/ml TSH (0.300-4.500) uIu/ml Urine Color Urine Appearance (Clear) Urine pH (4.5-7.5) Ur Specific [place] (1.000-1.030) Urine Protein (Negative) Urine Glucose (UA) (Negative) Urine Ketones (Negative) Urine Blood (Negative) Urine Nitrite (Negative) Urine Bilirubin (Negative) Urine Urobilinogen (Negative) Ur Leukocyte Esterase (Negative) Urine WBC (Auto) (0-5) /hpf Urine RBC (Auto) (0-4) /hpf U Hyaline Cast (Auto) (0-5) /lpf U Epithel Cells (Auto) (0-5) /lpf Urine Bacteria (Auto) (Negative) Urine RBC (0-4) /hpf Urine WBC (0-5) /hpf Ur Epithelial Cells (0-5) /lpf Urine Bacteria (Negative) Nasal Screen MRSA (PCR) (Negative) Staphylococcus sp PCR (NotDetected) mecA/C-Methicil Resis Gene (NotDetected) Staph epidermidis (PCR) (NotDetected) Bld Cult ID Panel PCR (NotDetected) 02/24/24 02/24/24 02/24/24 Range/Units 20:23 17:20 16:18 WBC (4.8-10.8) K/ul RBC (4.20-5.40) M/uL Hgb (12.0-16.0) g/dl Hct (37.0-47.0) % MCV (80.0-100.0) fL MCH (25.0-34.0) pg MCHC (32.0-36.0) g/dL RDW Std Deviation (36.4-46.3) fL RDW Coeff of Marj (11.5-14.5) % Plt Count (130-400) K/uL MPV (9.4-12.4) fL Immature Gran % (Auto) % Neut % (Auto) % Lymph % (Auto) % [place] % (Auto) % Eos % (Auto) % Baso % (Auto) % Neut # (Auto) (1.40-6.50) K/uL Lymph # (Auto) (1.20-3.40) K/uL [place] # (Auto) (0.11-0.59) K/uL Eos # (Auto) (0.00-0.50) K/uL Baso # (Auto) (0.00-0.20) K/uL Immature Gran # (Auto) (0.01-0.20) K/uL Absolute Nucleated RBC (0.00-0.12) K/uL Nucleated RBC % (auto) % Polychromasia Ovalocytes Echinocytes ESR (0-30) mm/hr PT (9.0-12.0) Seconds INR (0.9-1.1) APTT (21-31) Seconds PTT Ratio Heparin Anti-Xa, Unfract 0.77 H* (0.3-0.7) IU/ml VBG pH (7.36-7.41) VBG pCO2 (38-50) mmHg VBG pO2 mmHg VBG HCO3 mmol/L VBG O2 Saturation % VBG Base Excess mEq/L Sodium 134 L (136-145) mmol/L Potassium 2.6 L (3.5-5.1) mmol/L Chloride 89 L (98-107) mmol/L Carbon Dioxide 35 H (21-32) mmol/L Anion Gap 10 (3-11) BUN 31 H (6-23) mg/dl Creatinine 0.83 (0.6-1.2) mg/dl Est Cr Clr Drug Dosing 54.0 ml/min Est GFR ( Amer) 84.6 ml/min Est GFR (Non-Af Amer) 73.0 ml/min BUN/Creatinine Ratio 37.3 H (10-20) Glucose 134 H (70-99(Fasting)) mg/dl POC Glucose 141 H 151 H (70-99) mg/dl Lactate (0.4-2.0) mmol/L Calcium 8.1 L (8.6-10.3) mg/dl Phosphorus (2.5-4.9) mg/dl Magnesium (1.7-2.4) mg/dl Iron (35-150) mcg/dl TIBC (250-450) mcg/dl Unsaturated IBC (155-355) mcg/dl Transferrin % Sat (15-50) % Ferritin (8-388) ng/ml Total Bilirubin (0.2-1.0) mg/dl AST (13-39) U/L ALT (7-52) U/L Alkaline Phosphatase (34-104) U/L Ammonia (18-72) umol/L Total Creatine Kinase (26-192) U/L Troponin I High Sens (0-14) pg/ml C-Reactive Protein (0-0.5) mg/dl B-Natriuretic Peptide (0-100) pg/ml Total Protein (6.0-8.3) gm/dl Albumin (3.4-5.0) gm/dl Globulin (2.5-4.0) gm/dl Albumin/Globulin Ratio (0.9-2) Vitamin B12 (180-914) pg/ml Folate (>5.38) ng/ml TSH (0.300-4.500) uIu/ml Urine Color Urine Appearance (Clear) Urine pH (4.5-7.5) Ur Specific [place] (1.000-1.030) Urine Protein (Negative) Urine Glucose (UA) (Negative) Urine Ketones (Negative) Urine Blood (Negative) Urine Nitrite (Negative) Urine Bilirubin (Negative) Urine Urobilinogen (Negative) Ur Leukocyte Esterase (Negative) Urine WBC (Auto) (0-5) /hpf Urine RBC (Auto) (0-4) /hpf U Hyaline Cast (Auto) (0-5) /lpf U Epithel Cells (Auto) (0-5) /lpf Urine Bacteria (Auto) (Negative) Urine RBC (0-4) /hpf Urine WBC (0-5) /hpf Ur Epithelial Cells (0-5) /lpf Urine Bacteria (Negative) Nasal Screen MRSA (PCR) (Negative) Staphylococcus sp PCR (NotDetected) mecA/C-Methicil Resis Gene (NotDetected) Staph epidermidis (PCR) (NotDetected) Bld Cult ID Panel PCR (NotDetected) 02/24/24 02/24/24 02/24/24 Range/Units 11:18 10:10 07:16 WBC (4.8-10.8) K/ul RBC (4.20-5.40) M/uL Hgb (12.0-16.0) g/dl Hct (37.0-47.0) % MCV (80.0-100.0) fL MCH (25.0-34.0) pg MCHC (32.0-36.0) g/dL RDW Std Deviation (36.4-46.3) fL RDW Coeff of Marj (11.5-14.5) % Plt Count (130-400) K/uL MPV (9.4-12.4) fL Immature Gran % (Auto) % Neut % (Auto) % Lymph % (Auto) % [place] % (Auto) % Eos % (Auto) % Baso % (Auto) % Neut # (Auto) (1.40-6.50) K/uL Lymph # (Auto) (1.20-3.40) K/uL [place] # (Auto) (0.11-0.59) K/uL Eos # (Auto) (0.00-0.50) K/uL Baso # (Auto) (0.00-0.20) K/uL Immature Gran # (Auto) (0.01-0.20) K/uL Absolute Nucleated RBC (0.00-0.12) K/uL Nucleated RBC % (auto) % Polychromasia Ovalocytes Echinocytes ESR (0-30) mm/hr PT (9.0-12.0) Seconds INR (0.9-1.1) APTT (21-31) Seconds PTT Ratio Heparin Anti-Xa, Unfract 0.71 H* (0.3-0.7) IU/ml VBG pH (7.36-7.41) VBG pCO2 (38-50) mmHg VBG pO2 mmHg VBG HCO3 mmol/L VBG O2 Saturation % VBG Base Excess mEq/L Sodium (136-145) mmol/L Potassium (3.5-5.1) mmol/L Chloride (98-107) mmol/L Carbon Dioxide (21-32) mmol/L Anion Gap (3-11) BUN (6-23) mg/dl Creatinine (0.6-1.2) mg/dl Est Cr Clr Drug Dosing ml/min Est GFR ( Amer) ml/min Est GFR (Non-Af Amer) ml/min BUN/Creatinine Ratio (10-20) Glucose (70-99(Fasting)) mg/dl POC Glucose 198 H 92 (70-99) mg/dl Lactate (0.4-2.0) mmol/L Calcium (8.6-10.3) mg/dl Phosphorus (2.5-4.9) mg/dl Magnesium (1.7-2.4) mg/dl Iron (35-150) mcg/dl TIBC (250-450) mcg/dl Unsaturated IBC (155-355) mcg/dl Transferrin % Sat (15-50) % Ferritin (8-388) ng/ml Total Bilirubin (0.2-1.0) mg/dl AST (13-39) U/L ALT (7-52) U/L Alkaline Phosphatase (34-104) U/L Ammonia (18-72) umol/L Total Creatine Kinase (26-192) U/L Troponin I High Sens (0-14) pg/ml C-Reactive Protein (0-0.5) mg/dl B-Natriuretic Peptide (0-100) pg/ml Total Protein (6.0-8.3) gm/dl Albumin (3.4-5.0) gm/dl Globulin (2.5-4.0) gm/dl Albumin/Globulin Ratio (0.9-2) Vitamin B12 (180-914) pg/ml Folate (>5.38) ng/ml TSH (0.300-4.500) uIu/ml Urine Color Urine Appearance (Clear) Urine pH (4.5-7.5) Ur Specific [place] (1.000-1.030) Urine Protein (Negative) Urine Glucose (UA) (Negative) Urine Ketones (Negative) Urine Blood (Negative) Urine Nitrite (Negative) Urine Bilirubin (Negative) Urine Urobilinogen (Negative) Ur Leukocyte Esterase (Negative) Urine WBC (Auto) (0-5) /hpf Urine RBC (Auto) (0-4) /hpf U Hyaline Cast (Auto) (0-5) /lpf U Epithel Cells (Auto) (0-5) /lpf Urine Bacteria (Auto) (Negative) Urine RBC (0-4) /hpf Urine WBC (0-5) /hpf Ur Epithelial Cells (0-5) /lpf Urine Bacteria (Negative) Nasal Screen MRSA (PCR) (Negative) Staphylococcus sp PCR (NotDetected) mecA/C-Methicil Resis Gene (NotDetected) Staph epidermidis (PCR) (NotDetected) Bld Cult ID Panel PCR (NotDetected) 02/24/24 02/24/24 02/24/24 Range/Units 06:00 04:11 03:28 WBC 8.79 (4.8-10.8) K/ul RBC 4.72 (4.20-5.40) M/uL Hgb 12.0 (12.0-16.0) g/dl Hct 36.3 L (37.0-47.0) % MCV 76.9 L (80.0-100.0) fL MCH 25.4 (25.0-34.0) pg MCHC 33.1 (32.0-36.0) g/dL RDW Std Deviation 45.1 (36.4-46.3) fL RDW Coeff of Marj 16.8 H (11.5-14.5) % Plt Count 149 (130-400) K/uL MPV 11.6 (9.4-12.4) fL Immature Gran % (Auto) % Neut % (Auto) % Lymph % (Auto) % [place] % (Auto) % Eos % (Auto) % Baso % (Auto) % Neut # (Auto) (1.40-6.50) K/uL Lymph # (Auto) (1.20-3.40) K/uL [place] # (Auto) (0.11-0.59) K/uL Eos # (Auto) (0.00-0.50) K/uL Baso # (Auto) (0.00-0.20) K/uL Immature Gran # (Auto) (0.01-0.20) K/uL Absolute Nucleated RBC (0.00-0.12) K/uL Nucleated RBC % (auto) % Polychromasia Ovalocytes Echinocytes ESR (0-30) mm/hr PT (9.0-12.0) Seconds INR (0.9-1.1) APTT (21-31) Seconds PTT Ratio Heparin Anti-Xa, Unfract 0.43 (0.3-0.7) IU/ml VBG pH (7.36-7.41) VBG pCO2 (38-50) mmHg VBG pO2 mmHg VBG HCO3 mmol/L VBG O2 Saturation % VBG Base Excess mEq/L Sodium 134 L (136-145) mmol/L Potassium 3.1 L (3.5-5.1) mmol/L Chloride 92 L (98-107) mmol/L Carbon Dioxide 33 H (21-32) mmol/L Anion Gap 9 (3-11) BUN 39 H (6-23) mg/dl Creatinine 0.81 (0.6-1.2) mg/dl Est Cr Clr Drug Dosing 55.3 ml/min Est GFR ( Amer) 87.1 ml/min Est GFR (Non-Af Amer) 75.2 ml/min BUN/Creatinine Ratio 48.1 H (10-20) Glucose 72 (70-99(Fasting)) mg/dl POC Glucose 82 76 (70-99) mg/dl Lactate (0.4-2.0) mmol/L Calcium 7.8 L (8.6-10.3) mg/dl Phosphorus 2.6 (2.5-4.9) mg/dl Magnesium 1.5 L (1.7-2.4) mg/dl Iron (35-150) mcg/dl TIBC (250-450) mcg/dl Unsaturated IBC (155-355) mcg/dl Transferrin % Sat (15-50) % Ferritin (8-388) ng/ml Total Bilirubin (0.2-1.0) mg/dl AST (13-39) U/L ALT (7-52) U/L Alkaline Phosphatase (34-104) U/L Ammonia (18-72) umol/L Total Creatine Kinase (26-192) U/L Troponin I High Sens (0-14) pg/ml C-Reactive Protein (0-0.5) mg/dl B-Natriuretic Peptide (0-100) pg/ml Total Protein (6.0-8.3) gm/dl Albumin (3.4-5.0) gm/dl Globulin (2.5-4.0) gm/dl Albumin/Globulin Ratio (0.9-2) Vitamin B12 (180-914) pg/ml Folate (>5.38) ng/ml TSH (0.300-4.500) uIu/ml Urine Color Urine Appearance (Clear) Urine pH (4.5-7.5) Ur Specific [place] (1.000-1.030) Urine Protein (Negative) Urine Glucose (UA) (Negative) Urine Ketones (Negative) Urine Blood (Negative) Urine Nitrite (Negative) Urine Bilirubin (Negative) Urine Urobilinogen (Negative) Ur Leukocyte Esterase (Negative) Urine WBC (Auto) (0-5) /hpf Urine RBC (Auto) (0-4) /hpf U Hyaline Cast (Auto) (0-5) /lpf U Epithel Cells (Auto) (0-5) /lpf Urine Bacteria (Auto) (Negative) Urine RBC (0-4) /hpf Urine WBC (0-5) /hpf Ur Epithelial Cells (0-5) /lpf Urine Bacteria (Negative) Nasal Screen MRSA (PCR) (Negative) Staphylococcus sp PCR (NotDetected) mecA/C-Methicil Resis Gene (NotDetected) Staph epidermidis (PCR) (NotDetected) Bld Cult ID Panel PCR (NotDetected) 02/24/24 02/23/24 02/23/24 Range/Units 00:08 21:39 18:40 WBC (4.8-10.8) K/ul RBC (4.20-5.40) M/uL Hgb (12.0-16.0) g/dl Hct (37.0-47.0) % MCV (80.0-100.0) fL MCH (25.0-34.0) pg MCHC (32.0-36.0) g/dL RDW Std Deviation (36.4-46.3) fL RDW Coeff of Marj (11.5-14.5) % Plt Count (130-400) K/uL MPV (9.4-12.4) fL Immature Gran % (Auto) % Neut % (Auto) % Lymph % (Auto) % [place] % (Auto) % Eos % (Auto) % Baso % (Auto) % Neut # (Auto) (1.40-6.50) K/uL Lymph # (Auto) (1.20-3.40) K/uL [place] # (Auto) (0.11-0.59) K/uL Eos # (Auto) (0.00-0.50) K/uL Baso # (Auto) (0.00-0.20) K/uL Immature Gran # (Auto) (0.01-0.20) K/uL Absolute Nucleated RBC (0.00-0.12) K/uL Nucleated RBC % (auto) % Polychromasia Ovalocytes Echinocytes ESR (0-30) mm/hr PT (9.0-12.0) Seconds INR (0.9-1.1) APTT (21-31) Seconds PTT Ratio Heparin Anti-Xa, Unfract < 0.10 L (0.3-0.7) IU/ml VBG pH (7.36-7.41) VBG pCO2 (38-50) mmHg VBG pO2 mmHg VBG HCO3 mmol/L VBG O2 Saturation % VBG Base Excess mEq/L Sodium (136-145) mmol/L Potassium (3.5-5.1) mmol/L Chloride (98-107) mmol/L Carbon Dioxide (21-32) mmol/L Anion Gap (3-11) BUN (6-23) mg/dl Creatinine (0.6-1.2) mg/dl Est Cr Clr Drug Dosing ml/min Est GFR ( Amer) ml/min Est GFR (Non-Af Amer) ml/min BUN/Creatinine Ratio (10-20) Glucose (70-99(Fasting)) mg/dl POC Glucose 158 H 260 H (70-99) mg/dl Lactate (0.4-2.0) mmol/L Calcium (8.6-10.3) mg/dl Phosphorus (2.5-4.9) mg/dl Magnesium (1.7-2.4) mg/dl Iron (35-150) mcg/dl TIBC (250-450) mcg/dl Unsaturated IBC (155-355) mcg/dl Transferrin % Sat (15-50) % Ferritin (8-388) ng/ml Total Bilirubin (0.2-1.0) mg/dl AST (13-39) U/L ALT (7-52) U/L Alkaline Phosphatase (34-104) U/L Ammonia (18-72) umol/L Total Creatine Kinase (26-192) U/L Troponin I High Sens (0-14) pg/ml C-Reactive Protein (0-0.5) mg/dl B-Natriuretic Peptide (0-100) pg/ml Total Protein (6.0-8.3) gm/dl Albumin (3.4-5.0) gm/dl Globulin (2.5-4.0) gm/dl Albumin/Globulin Ratio (0.9-2) Vitamin B12 (180-914) pg/ml Folate (>5.38) ng/ml TSH (0.300-4.500) uIu/ml Urine Color Urine Appearance (Clear) Urine pH (4.5-7.5) Ur Specific [place] (1.000-1.030) Urine Protein (Negative) Urine Glucose (UA) (Negative) Urine Ketones (Negative) Urine Blood (Negative) Urine Nitrite (Negative) Urine Bilirubin (Negative) Urine Urobilinogen (Negative) Ur Leukocyte Esterase (Negative) Urine WBC (Auto) (0-5) /hpf Urine RBC (Auto) (0-4) /hpf U Hyaline Cast (Auto) (0-5) /lpf U Epithel Cells (Auto) (0-5) /lpf Urine Bacteria (Auto) (Negative) Urine RBC (0-4) /hpf Urine WBC (0-5) /hpf Ur Epithelial Cells (0-5) /lpf Urine Bacteria (Negative) Nasal Screen MRSA (PCR) (Negative) Staphylococcus sp PCR (NotDetected) mecA/C-Methicil Resis Gene (NotDetected) Staph epidermidis (PCR) (NotDetected) Bld Cult ID Panel PCR (NotDetected) 02/23/24 02/23/24 02/23/24 Range/Units 16:45 16:43 12:09 WBC (4.8-10.8) K/ul RBC (4.20-5.40) M/uL Hgb (12.0-16.0) g/dl Hct (37.0-47.0) % MCV (80.0-100.0) fL MCH (25.0-34.0) pg MCHC (32.0-36.0) g/dL RDW Std Deviation (36.4-46.3) fL RDW Coeff of Marj (11.5-14.5) % Plt Count (130-400) K/uL MPV (9.4-12.4) fL Immature Gran % (Auto) % Neut % (Auto) % Lymph % (Auto) % [place] % (Auto) % Eos % (Auto) % Baso % (Auto) % Neut # (Auto) (1.40-6.50) K/uL Lymph # (Auto) (1.20-3.40) K/uL [place] # (Auto) (0.11-0.59) K/uL Eos # (Auto) (0.00-0.50) K/uL Baso # (Auto) (0.00-0.20) K/uL Immature Gran # (Auto) (0.01-0.20) K/uL Absolute Nucleated RBC (0.00-0.12) K/uL Nucleated RBC % (auto) % Polychromasia Ovalocytes Echinocytes ESR (0-30) mm/hr PT (9.0-12.0) Seconds INR (0.9-1.1) APTT (21-31) Seconds PTT Ratio Heparin Anti-Xa, Unfract (0.3-0.7) IU/ml VBG pH (7.36-7.41) VBG pCO2 (38-50) mmHg VBG pO2 mmHg VBG HCO3 mmol/L VBG O2 Saturation % VBG Base Excess mEq/L Sodium (136-145) mmol/L Potassium (3.5-5.1) mmol/L Chloride (98-107) mmol/L Carbon Dioxide (21-32) mmol/L Anion Gap (3-11) BUN (6-23) mg/dl Creatinine (0.6-1.2) mg/dl Est Cr Clr Drug Dosing ml/min Est GFR ( Amer) ml/min Est GFR (Non-Af Amer) ml/min BUN/Creatinine Ratio (10-20) Glucose (70-99(Fasting)) mg/dl POC Glucose 343 H* 364 H* (70-99) mg/dl Lactate 2.9 H* (0.4-2.0) mmol/L Calcium (8.6-10.3) mg/dl Phosphorus (2.5-4.9) mg/dl Magnesium (1.7-2.4) mg/dl Iron (35-150) mcg/dl TIBC (250-450) mcg/dl Unsaturated IBC (155-355) mcg/dl Transferrin % Sat (15-50) % Ferritin (8-388) ng/ml Total Bilirubin (0.2-1.0) mg/dl AST (13-39) U/L ALT (7-52) U/L Alkaline Phosphatase (34-104) U/L Ammonia 32.0 (18-72) umol/L Total Creatine Kinase (26-192) U/L Troponin I High Sens (0-14) pg/ml C-Reactive Protein (0-0.5) mg/dl B-Natriuretic Peptide (0-100) pg/ml Total Protein (6.0-8.3) gm/dl Albumin (3.4-5.0) gm/dl Globulin (2.5-4.0) gm/dl Albumin/Globulin Ratio (0.9-2) Vitamin B12 (180-914) pg/ml Folate (>5.38) ng/ml TSH (0.300-4.500) uIu/ml Urine Color Urine Appearance (Clear) Urine pH (4.5-7.5) Ur Specific [place] (1.000-1.030) Urine Protein (Negative) Urine Glucose (UA) (Negative) Urine Ketones (Negative) Urine Blood (Negative) Urine Nitrite (Negative) Urine Bilirubin (Negative) Urine Urobilinogen (Negative) Ur Leukocyte Esterase (Negative) Urine WBC (Auto) (0-5) /hpf Urine RBC (Auto) (0-4) /hpf U Hyaline Cast (Auto) (0-5) /lpf U Epithel Cells (Auto) (0-5) /lpf Urine Bacteria (Auto) (Negative) Urine RBC (0-4) /hpf Urine WBC (0-5) /hpf Ur Epithelial Cells (0-5) /lpf Urine Bacteria (Negative) Nasal Screen MRSA (PCR) (Negative) Staphylococcus sp PCR (NotDetected) mecA/C-Methicil Resis Gene (NotDetected) Staph epidermidis (PCR) (NotDetected) Bld Cult ID Panel PCR (NotDetected) 02/23/24 02/23/24 02/23/24 Range/Units 11:50 11:40 08:13 WBC (4.8-10.8) K/ul RBC (4.20-5.40) M/uL Hgb (12.0-16.0) g/dl Hct (37.0-47.0) % MCV (80.0-100.0) fL MCH (25.0-34.0) pg MCHC (32.0-36.0) g/dL RDW Std Deviation (36.4-46.3) fL RDW Coeff of Marj (11.5-14.5) % Plt Count (130-400) K/uL MPV (9.4-12.4) fL Immature Gran % (Auto) % Neut % (Auto) % Lymph % (Auto) % [place] % (Auto) % Eos % (Auto) % Baso % (Auto) % Neut # (Auto) (1.40-6.50) K/uL Lymph # (Auto) (1.20-3.40) K/uL [place] # (Auto) (0.11-0.59) K/uL Eos # (Auto) (0.00-0.50) K/uL Baso # (Auto) (0.00-0.20) K/uL Immature Gran # (Auto) (0.01-0.20) K/uL Absolute Nucleated RBC (0.00-0.12) K/uL Nucleated RBC % (auto) % Polychromasia Ovalocytes Echinocytes ESR (0-30) mm/hr PT (9.0-12.0) Seconds INR (0.9-1.1) APTT (21-31) Seconds PTT Ratio Heparin Anti-Xa, Unfract (0.3-0.7) IU/ml VBG pH (7.36-7.41) VBG pCO2 (38-50) mmHg VBG pO2 mmHg VBG HCO3 mmol/L VBG O2 Saturation % VBG Base Excess mEq/L Sodium (136-145) mmol/L Potassium (3.5-5.1) mmol/L Chloride (98-107) mmol/L Carbon Dioxide (21-32) mmol/L Anion Gap (3-11) BUN (6-23) mg/dl Creatinine (0.6-1.2) mg/dl Est Cr Clr Drug Dosing ml/min Est GFR ( Amer) ml/min Est GFR (Non-Af Amer) ml/min BUN/Creatinine Ratio (10-20) Glucose (70-99(Fasting)) mg/dl POC Glucose 180 H 132 H (70-99) mg/dl Lactate (0.4-2.0) mmol/L Calcium (8.6-10.3) mg/dl Phosphorus (2.5-4.9) mg/dl Magnesium (1.7-2.4) mg/dl Iron (35-150) mcg/dl TIBC (250-450) mcg/dl Unsaturated IBC (155-355) mcg/dl Transferrin % Sat (15-50) % Ferritin (8-388) ng/ml Total Bilirubin (0.2-1.0) mg/dl AST (13-39) U/L ALT (7-52) U/L Alkaline Phosphatase (34-104) U/L Ammonia (18-72) umol/L Total Creatine Kinase (26-192) U/L Troponin I High Sens (0-14) pg/ml C-Reactive Protein (0-0.5) mg/dl B-Natriuretic Peptide (0-100) pg/ml Total Protein (6.0-8.3) gm/dl Albumin (3.4-5.0) gm/dl Globulin (2.5-4.0) gm/dl Albumin/Globulin Ratio (0.9-2) Vitamin B12 (180-914) pg/ml Folate (>5.38) ng/ml TSH (0.300-4.500) uIu/ml Urine Color Red Urine Appearance Cloudy A (Clear) Urine pH (4.5-7.5) Ur Specific [place] > 1.060 H (1.000-1.030) Urine Protein (Negative) Urine Glucose (UA) (Negative) Urine Ketones (Negative) Urine Blood (Negative) Urine Nitrite (Negative) Urine Bilirubin (Negative) Urine Urobilinogen (Negative) Ur Leukocyte Esterase (Negative) Urine WBC (Auto) (0-5) /hpf Urine RBC (Auto) (0-4) /hpf U Hyaline Cast (Auto) (0-5) /lpf U Epithel Cells (Auto) (0-5) /lpf Urine Bacteria (Auto) (Negative) Urine RBC >30 H (0-4) /hpf Urine WBC 5-10 H (0-5) /hpf Ur Epithelial Cells 0-5 (0-5) /lpf Urine Bacteria Negative (Negative) Nasal Screen MRSA (PCR) (Negative) Staphylococcus sp PCR (NotDetected) mecA/C-Methicil Resis Gene (NotDetected) Staph epidermidis (PCR) (NotDetected) Bld Cult ID Panel PCR (NotDetected) 02/23/24 02/22/24 02/22/24 Range/Units 05:32 Unknown 21:34 WBC 9.16 (4.8-10.8) K/ul RBC 4.98 (4.20-5.40) M/uL Hgb 12.6 (12.0-16.0) g/dl Hct 38.1 (37.0-47.0) % MCV 76.5 L (80.0-100.0) fL MCH 25.3 (25.0-34.0) pg MCHC 33.1 (32.0-36.0) g/dL RDW Std Deviation 44.5 (36.4-46.3) fL RDW Coeff of Marj 16.9 H (11.5-14.5) % Plt Count 144 (130-400) K/uL MPV 12.2 (9.4-12.4) fL Immature Gran % (Auto) % Neut % (Auto) % Lymph % (Auto) % [place] % (Auto) % Eos % (Auto) % Baso % (Auto) % Neut # (Auto) (1.40-6.50) K/uL Lymph # (Auto) (1.20-3.40) K/uL [place] # (Auto) (0.11-0.59) K/uL Eos # (Auto) (0.00-0.50) K/uL Baso # (Auto) (0.00-0.20) K/uL Immature Gran # (Auto) (0.01-0.20) K/uL Absolute Nucleated RBC (0.00-0.12) K/uL Nucleated RBC % (auto) % Polychromasia Ovalocytes Echinocytes ESR (0-30) mm/hr PT (9.0-12.0) Seconds INR (0.9-1.1) APTT (21-31) Seconds PTT Ratio Heparin Anti-Xa, Unfract (0.3-0.7) IU/ml VBG pH (7.36-7.41) VBG pCO2 (38-50) mmHg VBG pO2 mmHg VBG HCO3 mmol/L VBG O2 Saturation % VBG Base Excess mEq/L Sodium 136 (136-145) mmol/L Potassium 3.2 L (3.5-5.1) mmol/L Chloride 93 L (98-107) mmol/L Carbon Dioxide 32 (21-32) mmol/L Anion Gap 11 (3-11) BUN 51 H (6-23) mg/dl Creatinine 0.86 (0.6-1.2) mg/dl Est Cr Clr Drug Dosing 52.1 ml/min Est GFR ( Amer) 81.0 ml/min Est GFR (Non-Af Amer) 69.9 ml/min BUN/Creatinine Ratio 59.3 H (10-20) Glucose 124 H (70-99(Fasting)) mg/dl POC Glucose (70-99) mg/dl Lactate 4.3 H* (0.4-2.0) mmol/L Calcium 8.1 L (8.6-10.3) mg/dl Phosphorus 2.5 (2.5-4.9) mg/dl Magnesium 1.3 L (1.7-2.4) mg/dl Iron 27 L (35-150) mcg/dl TIBC 294 (250-450) mcg/dl Unsaturated IBC 267 (155-355) mcg/dl Transferrin % Sat 9 L (15-50) % Ferritin 39.6 (8-388) ng/ml Total Bilirubin 1.1 H (0.2-1.0) mg/dl AST 45 H (13-39) U/L ALT 39 (7-52) U/L Alkaline Phosphatase 59 (34-104) U/L Ammonia (18-72) umol/L Total Creatine Kinase 130 (26-192) U/L Troponin I High Sens (0-14) pg/ml C-Reactive Protein (0-0.5) mg/dl B-Natriuretic Peptide (0-100) pg/ml Total Protein 5.2 L (6.0-8.3) gm/dl Albumin 2.9 L (3.4-5.0) gm/dl Globulin 2.3 L (2.5-4.0) gm/dl Albumin/Globulin Ratio 1.3 (0.9-2) Vitamin B12 1238 H (180-914) pg/ml Folate 17.84 (>5.38) ng/ml TSH (0.300-4.500) uIu/ml Urine Color Urine Appearance (Clear) Urine pH (4.5-7.5) Ur Specific [place] (1.000-1.030) Urine Protein (Negative) Urine Glucose (UA) (Negative) Urine Ketones (Negative) Urine Blood (Negative) Urine Nitrite (Negative) Urine Bilirubin (Negative) Urine Urobilinogen (Negative) Ur Leukocyte Esterase (Negative) Urine WBC (Auto) (0-5) /hpf Urine RBC (Auto) (0-4) /hpf U Hyaline Cast (Auto) (0-5) /lpf U Epithel Cells (Auto) (0-5) /lpf Urine Bacteria (Auto) (Negative) Urine RBC (0-4) /hpf Urine WBC (0-5) /hpf Ur Epithelial Cells (0-5) /lpf Urine Bacteria (Negative) Nasal Screen MRSA (PCR) Negative (Negative) Staphylococcus sp PCR (NotDetected) mecA/C-Methicil Resis Gene (NotDetected) Staph epidermidis (PCR) (NotDetected) Bld Cult ID Panel PCR (NotDetected) 02/22/24 02/22/24 02/22/24 Range/Units 21:14 18:32 16:36 WBC (4.8-10.8) K/ul RBC (4.20-5.40) M/uL Hgb (12.0-16.0) g/dl Hct (37.0-47.0) % MCV (80.0-100.0) fL MCH (25.0-34.0) pg MCHC (32.0-36.0) g/dL RDW Std Deviation (36.4-46.3) fL RDW Coeff of Marj (11.5-14.5) % Plt Count (130-400) K/uL MPV (9.4-12.4) fL Immature Gran % (Auto) % Neut % (Auto) % Lymph % (Auto) % [place] % (Auto) % Eos % (Auto) % Baso % (Auto) % Neut # (Auto) (1.40-6.50) K/uL Lymph # (Auto) (1.20-3.40) K/uL [place] # (Auto) (0.11-0.59) K/uL Eos # (Auto) (0.00-0.50) K/uL Baso # (Auto) (0.00-0.20) K/uL Immature Gran # (Auto) (0.01-0.20) K/uL Absolute Nucleated RBC (0.00-0.12) K/uL Nucleated RBC % (auto) % Polychromasia Ovalocytes Echinocytes ESR (0-30) mm/hr PT (9.0-12.0) Seconds INR (0.9-1.1) APTT (21-31) Seconds PTT Ratio Heparin Anti-Xa, Unfract (0.3-0.7) IU/ml VBG pH (7.36-7.41) VBG pCO2 (38-50) mmHg VBG pO2 mmHg VBG HCO3 mmol/L VBG O2 Saturation % VBG Base Excess mEq/L Sodium (136-145) mmol/L Potassium (3.5-5.1) mmol/L Chloride (98-107) mmol/L Carbon Dioxide (21-32) mmol/L Anion Gap (3-11) BUN (6-23) mg/dl Creatinine (0.6-1.2) mg/dl Est Cr Clr Drug Dosing ml/min Est GFR ( Amer) ml/min Est GFR (Non-Af Amer) ml/min BUN/Creatinine Ratio (10-20) Glucose (70-99(Fasting)) mg/dl POC Glucose 99 117 H (70-99) mg/dl Lactate 4.7 H* (0.4-2.0) mmol/L Calcium (8.6-10.3) mg/dl Phosphorus (2.5-4.9) mg/dl Magnesium (1.7-2.4) mg/dl Iron (35-150) mcg/dl TIBC (250-450) mcg/dl Unsaturated IBC (155-355) mcg/dl Transferrin % Sat (15-50) % Ferritin (8-388) ng/ml Total Bilirubin (0.2-1.0) mg/dl AST (13-39) U/L ALT (7-52) U/L Alkaline Phosphatase (34-104) U/L Ammonia (18-72) umol/L Total Creatine Kinase (26-192) U/L Troponin I High Sens (0-14) pg/ml C-Reactive Protein (0-0.5) mg/dl B-Natriuretic Peptide (0-100) pg/ml Total Protein (6.0-8.3) gm/dl Albumin (3.4-5.0) gm/dl Globulin (2.5-4.0) gm/dl Albumin/Globulin Ratio (0.9-2) Vitamin B12 (180-914) pg/ml Folate (>5.38) ng/ml TSH (0.300-4.500) uIu/ml Urine Color Urine Appearance (Clear) Urine pH (4.5-7.5) Ur Specific [place] (1.000-1.030) Urine Protein (Negative) Urine Glucose (UA) (Negative) Urine Ketones (Negative) Urine Blood (Negative) Urine Nitrite (Negative) Urine Bilirubin (Negative) Urine Urobilinogen (Negative) Ur Leukocyte Esterase (Negative) Urine WBC (Auto) (0-5) /hpf Urine RBC (Auto) (0-4) /hpf U Hyaline Cast (Auto) (0-5) /lpf U Epithel Cells (Auto) (0-5) /lpf Urine Bacteria (Auto) (Negative) Urine RBC (0-4) /hpf Urine WBC (0-5) /hpf Ur Epithelial Cells (0-5) /lpf Urine Bacteria (Negative) Nasal Screen MRSA (PCR) (Negative) Staphylococcus sp PCR (NotDetected) mecA/C-Methicil Resis Gene (NotDetected) Staph epidermidis (PCR) (NotDetected) Bld Cult ID Panel PCR (NotDetected) 02/22/24 02/22/24 02/22/24 Range/Units 13:03 11:58 11:07 WBC (4.8-10.8) K/ul RBC (4.20-5.40) M/uL Hgb (12.0-16.0) g/dl Hct (37.0-47.0) % MCV (80.0-100.0) fL MCH (25.0-34.0) pg MCHC (32.0-36.0) g/dL RDW Std Deviation (36.4-46.3) fL RDW Coeff of Marj (11.5-14.5) % Plt Count (130-400) K/uL MPV (9.4-12.4) fL Immature Gran % (Auto) % Neut % (Auto) % Lymph % (Auto) % [place] % (Auto) % Eos % (Auto) % Baso % (Auto) % Neut # (Auto) (1.40-6.50) K/uL Lymph # (Auto) (1.20-3.40) K/uL [place] # (Auto) (0.11-0.59) K/uL Eos # (Auto) (0.00-0.50) K/uL Baso # (Auto) (0.00-0.20) K/uL Immature Gran # (Auto) (0.01-0.20) K/uL Absolute Nucleated RBC (0.00-0.12) K/uL Nucleated RBC % (auto) % Polychromasia Ovalocytes Echinocytes ESR (0-30) mm/hr PT (9.0-12.0) Seconds INR (0.9-1.1) APTT (21-31) Seconds PTT Ratio Heparin Anti-Xa, Unfract (0.3-0.7) IU/ml VBG pH (7.36-7.41) VBG pCO2 (38-50) mmHg VBG pO2 mmHg VBG HCO3 mmol/L VBG O2 Saturation % VBG Base Excess mEq/L Sodium 136 (136-145) mmol/L Potassium 3.2 L (3.5-5.1) mmol/L Chloride 91 L (98-107) mmol/L Carbon Dioxide 33 H (21-32) mmol/L Anion Gap 12 H (3-11) BUN 54 H (6-23) mg/dl Creatinine 0.98 (0.6-1.2) mg/dl Est Cr Clr Drug Dosing 45.7 ml/min Est GFR ( Amer) 69.2 ml/min Est GFR (Non-Af Amer) 59.7 ml/min BUN/Creatinine Ratio 55.1 H (10-20) Glucose 147 H (70-99(Fasting)) mg/dl POC Glucose 125 H 140 H (70-99) mg/dl Lactate (0.4-2.0) mmol/L Calcium 8.3 L (8.6-10.3) mg/dl Phosphorus (2.5-4.9) mg/dl Magnesium (1.7-2.4) mg/dl Iron (35-150) mcg/dl TIBC (250-450) mcg/dl Unsaturated IBC (155-355) mcg/dl Transferrin % Sat (15-50) % Ferritin (8-388) ng/ml Total Bilirubin (0.2-1.0) mg/dl AST (13-39) U/L ALT (7-52) U/L Alkaline Phosphatase (34-104) U/L Ammonia (18-72) umol/L Total Creatine Kinase (26-192) U/L Troponin I High Sens (0-14) pg/ml C-Reactive Protein (0-0.5) mg/dl B-Natriuretic Peptide (0-100) pg/ml Total Protein (6.0-8.3) gm/dl Albumin (3.4-5.0) gm/dl Globulin (2.5-4.0) gm/dl Albumin/Globulin Ratio (0.9-2) Vitamin B12 (180-914) pg/ml Folate (>5.38) ng/ml TSH (0.300-4.500) uIu/ml Urine Color Urine Appearance (Clear) Urine pH (4.5-7.5) Ur Specific [place] (1.000-1.030) Urine Protein (Negative) Urine Glucose (UA) (Negative) Urine Ketones (Negative) Urine Blood (Negative) Urine Nitrite (Negative) Urine Bilirubin (Negative) Urine Urobilinogen (Negative) Ur Leukocyte Esterase (Negative) Urine WBC (Auto) (0-5) /hpf Urine RBC (Auto) (0-4) /hpf U Hyaline Cast (Auto) (0-5) /lpf U Epithel Cells (Auto) (0-5) /lpf Urine Bacteria (Auto) (Negative) Urine RBC (0-4) /hpf Urine WBC (0-5) /hpf Ur Epithelial Cells (0-5) /lpf Urine Bacteria (Negative) Nasal Screen MRSA (PCR) (Negative) Staphylococcus sp PCR (NotDetected) mecA/C-Methicil Resis Gene (NotDetected) Staph epidermidis (PCR) (NotDetected) Bld Cult ID Panel PCR (NotDetected) 02/22/24 02/22/24 02/22/24 Range/Units 10:31 10:02 10:01 WBC (4.8-10.8) K/ul RBC (4.20-5.40) M/uL Hgb (12.0-16.0) g/dl Hct (37.0-47.0) % MCV (80.0-100.0) fL MCH (25.0-34.0) pg MCHC (32.0-36.0) g/dL RDW Std Deviation (36.4-46.3) fL RDW Coeff of Marj (11.5-14.5) % Plt Count (130-400) K/uL MPV (9.4-12.4) fL Immature Gran % (Auto) % Neut % (Auto) % Lymph % (Auto) % [place] % (Auto) % Eos % (Auto) % Baso % (Auto) % Neut # (Auto) (1.40-6.50) K/uL Lymph # (Auto) (1.20-3.40) K/uL [place] # (Auto) (0.11-0.59) K/uL Eos # (Auto) (0.00-0.50) K/uL Baso # (Auto) (0.00-0.20) K/uL Immature Gran # (Auto) (0.01-0.20) K/uL Absolute Nucleated RBC (0.00-0.12) K/uL Nucleated RBC % (auto) % Polychromasia Ovalocytes Echinocytes ESR (0-30) mm/hr PT (9.0-12.0) Seconds INR (0.9-1.1) APTT (21-31) Seconds PTT Ratio Heparin Anti-Xa, Unfract (0.3-0.7) IU/ml VBG pH (7.36-7.41) VBG pCO2 (38-50) mmHg VBG pO2 mmHg VBG HCO3 mmol/L VBG O2 Saturation % VBG Base Excess mEq/L Sodium (136-145) mmol/L Potassium (3.5-5.1) mmol/L Chloride (98-107) mmol/L Carbon Dioxide (21-32) mmol/L Anion Gap (3-11) BUN (6-23) mg/dl Creatinine (0.6-1.2) mg/dl Est Cr Clr Drug Dosing ml/min Est GFR ( Amer) ml/min Est GFR (Non-Af Amer) ml/min BUN/Creatinine Ratio (10-20) Glucose (70-99(Fasting)) mg/dl POC Glucose 201 H 69 L* (70-99) mg/dl Lactate 5.3 H* (0.4-2.0) mmol/L Calcium (8.6-10.3) mg/dl Phosphorus (2.5-4.9) mg/dl Magnesium (1.7-2.4) mg/dl Iron (35-150) mcg/dl TIBC (250-450) mcg/dl Unsaturated IBC (155-355) mcg/dl Transferrin % Sat (15-50) % Ferritin (8-388) ng/ml Total Bilirubin (0.2-1.0) mg/dl AST (13-39) U/L ALT (7-52) U/L Alkaline Phosphatase (34-104) U/L Ammonia (18-72) umol/L Total Creatine Kinase (26-192) U/L Troponin I High Sens (0-14) pg/ml C-Reactive Protein (0-0.5) mg/dl B-Natriuretic Peptide (0-100) pg/ml Total Protein (6.0-8.3) gm/dl Albumin (3.4-5.0) gm/dl Globulin (2.5-4.0) gm/dl Albumin/Globulin Ratio (0.9-2) Vitamin B12 (180-914) pg/ml Folate (>5.38) ng/ml TSH (0.300-4.500) uIu/ml Urine Color Urine Appearance (Clear) Urine pH (4.5-7.5) Ur Specific [place] (1.000-1.030) Urine Protein (Negative) Urine Glucose (UA) (Negative) Urine Ketones (Negative) Urine Blood (Negative) Urine Nitrite (Negative) Urine Bilirubin (Negative) Urine Urobilinogen (Negative) Ur Leukocyte Esterase (Negative) Urine WBC (Auto) (0-5) /hpf Urine RBC (Auto) (0-4) /hpf U Hyaline Cast (Auto) (0-5) /lpf U Epithel Cells (Auto) (0-5) /lpf Urine Bacteria (Auto) (Negative) Urine RBC (0-4) /hpf Urine WBC (0-5) /hpf Ur Epithelial Cells (0-5) /lpf Urine Bacteria (Negative) Nasal Screen MRSA (PCR) (Negative) Staphylococcus sp PCR (NotDetected) mecA/C-Methicil Resis Gene (NotDetected) Staph epidermidis (PCR) (NotDetected) Bld Cult ID Panel PCR (NotDetected) 02/22/24 02/22/24 02/22/24 Range/Units 08:47 08:45 06:59 WBC 9.27 (4.8-10.8) K/ul RBC 5.14 (4.20-5.40) M/uL Hgb 13.0 (12.0-16.0) g/dl Hct 39.2 (37.0-47.0) % MCV 76.3 L (80.0-100.0) fL MCH 25.3 (25.0-34.0) pg MCHC 33.2 (32.0-36.0) g/dL RDW Std Deviation 44.0 (36.4-46.3) fL RDW Coeff of Marj 16.9 H (11.5-14.5) % Plt Count 163 (130-400) K/uL MPV 11.4 (9.4-12.4) fL Immature Gran % (Auto) 0.3 % Neut % (Auto) 84.1 % Lymph % (Auto) 8.6 % [place] % (Auto) 6.6 % Eos % (Auto) 0.3 % Baso % (Auto) 0.1 % Neut # (Auto) 7.79 H (1.40-6.50) K/uL Lymph # (Auto) 0.80 L (1.20-3.40) K/uL [place] # (Auto) 0.61 H (0.11-0.59) K/uL Eos # (Auto) 0.03 (0.00-0.50) K/uL Baso # (Auto) 0.01 (0.00-0.20) K/uL Immature Gran # (Auto) 0.03 (0.01-0.20) K/uL Absolute Nucleated RBC (0.00-0.12) K/uL Nucleated RBC % (auto) % Polychromasia Ovalocytes Echinocytes ESR 5 (0-30) mm/hr PT (9.0-12.0) Seconds INR (0.9-1.1) APTT (21-31) Seconds PTT Ratio Heparin Anti-Xa, Unfract 0.59 (0.3-0.7) IU/ml VBG pH (7.36-7.41) VBG pCO2 (38-50) mmHg VBG pO2 mmHg VBG HCO3 mmol/L VBG O2 Saturation % VBG Base Excess mEq/L Sodium 137 (136-145) mmol/L Potassium 3.1 L (3.5-5.1) mmol/L Chloride 93 L (98-107) mmol/L Carbon Dioxide 29 (21-32) mmol/L Anion Gap 15 H (3-11) BUN 60 H (6-23) mg/dl Creatinine 1.02 (0.6-1.2) mg/dl Est Cr Clr Drug Dosing 44.0 ml/min Est GFR ( Amer) 65.9 ml/min Est GFR (Non-Af Amer) 56.9 ml/min BUN/Creatinine Ratio 58.8 H (10-20) Glucose 126 H (70-99(Fasting)) mg/dl POC Glucose 94 (70-99) mg/dl Lactate 5.8 H* 7.2 H* (0.4-2.0) mmol/L Calcium 8.8 (8.6-10.3) mg/dl Phosphorus (2.5-4.9) mg/dl Magnesium (1.7-2.4) mg/dl Iron (35-150) mcg/dl TIBC (250-450) mcg/dl Unsaturated IBC (155-355) mcg/dl Transferrin % Sat (15-50) % Ferritin (8-388) ng/ml Total Bilirubin 1.0 D (0.2-1.0) mg/dl AST 56 H (13-39) U/L ALT 49 (7-52) U/L Alkaline Phosphatase 67 (34-104) U/L Ammonia (18-72) umol/L Total Creatine Kinase (26-192) U/L Troponin I High Sens 209.3 H* D (0-14) pg/ml C-Reactive Protein 2.45 H (0-0.5) mg/dl B-Natriuretic Peptide (0-100) pg/ml Total Protein 5.8 L (6.0-8.3) gm/dl Albumin 3.2 L (3.4-5.0) gm/dl Globulin 2.6 (2.5-4.0) gm/dl Albumin/Globulin Ratio 1.2 (0.9-2) Vitamin B12 (180-914) pg/ml Folate (>5.38) ng/ml TSH (0.300-4.500) uIu/ml Urine Color Urine Appearance (Clear) Urine pH (4.5-7.5) Ur Specific [place] (1.000-1.030) Urine Protein (Negative) Urine Glucose (UA) (Negative) Urine Ketones (Negative) Urine Blood (Negative) Urine Nitrite (Negative) Urine Bilirubin (Negative) Urine Urobilinogen (Negative) Ur Leukocyte Esterase (Negative) Urine WBC (Auto) (0-5) /hpf Urine RBC (Auto) (0-4) /hpf U Hyaline Cast (Auto) (0-5) /lpf U Epithel Cells (Auto) (0-5) /lpf Urine Bacteria (Auto) (Negative) Urine RBC (0-4) /hpf Urine WBC (0-5) /hpf Ur Epithelial Cells (0-5) /lpf Urine Bacteria (Negative) Nasal Screen MRSA (PCR) (Negative) Staphylococcus sp PCR (NotDetected) mecA/C-Methicil Resis Gene (NotDetected) Staph epidermidis (PCR) (NotDetected) Bld Cult ID Panel PCR (NotDetected) 02/22/24 02/22/24 02/22/24 Range/Units 06:45 05:43 04:03 WBC (4.8-10.8) K/ul RBC (4.20-5.40) M/uL Hgb (12.0-16.0) g/dl Hct (37.0-47.0) % MCV (80.0-100.0) fL MCH (25.0-34.0) pg MCHC (32.0-36.0) g/dL RDW Std Deviation (36.4-46.3) fL RDW Coeff of Marj (11.5-14.5) % Plt Count (130-400) K/uL MPV (9.4-12.4) fL Immature Gran % (Auto) % Neut % (Auto) % Lymph % (Auto) % [place] % (Auto) % Eos % (Auto) % Baso % (Auto) % Neut # (Auto) (1.40-6.50) K/uL Lymph # (Auto) (1.20-3.40) K/uL [place] # (Auto) (0.11-0.59) K/uL Eos # (Auto) (0.00-0.50) K/uL Baso # (Auto) (0.00-0.20) K/uL Immature Gran # (Auto) (0.01-0.20) K/uL Absolute Nucleated RBC (0.00-0.12) K/uL Nucleated RBC % (auto) % Polychromasia Ovalocytes Echinocytes ESR (0-30) mm/hr PT (9.0-12.0) Seconds INR (0.9-1.1) APTT (21-31) Seconds PTT Ratio Heparin Anti-Xa, Unfract (0.3-0.7) IU/ml VBG pH (7.36-7.41) VBG pCO2 (38-50) mmHg VBG pO2 mmHg VBG HCO3 mmol/L VBG O2 Saturation % VBG Base Excess mEq/L Sodium (136-145) mmol/L Potassium (3.5-5.1) mmol/L Chloride (98-107) mmol/L Carbon Dioxide (21-32) mmol/L Anion Gap (3-11) BUN (6-23) mg/dl Creatinine (0.6-1.2) mg/dl Est Cr Clr Drug Dosing ml/min Est GFR ( Amer) ml/min Est GFR (Non-Af Amer) ml/min BUN/Creatinine Ratio (10-20) Glucose (70-99(Fasting)) mg/dl POC Glucose 139 H 160 H 210 H (70-99) mg/dl Lactate (0.4-2.0) mmol/L Calcium (8.6-10.3) mg/dl Phosphorus (2.5-4.9) mg/dl Magnesium (1.7-2.4) mg/dl Iron (35-150) mcg/dl TIBC (250-450) mcg/dl Unsaturated IBC (155-355) mcg/dl Transferrin % Sat (15-50) % Ferritin (8-388) ng/ml Total Bilirubin (0.2-1.0) mg/dl AST (13-39) U/L ALT (7-52) U/L Alkaline Phosphatase (34-104) U/L Ammonia (18-72) umol/L Total Creatine Kinase (26-192) U/L Troponin I High Sens (0-14) pg/ml C-Reactive Protein (0-0.5) mg/dl B-Natriuretic Peptide (0-100) pg/ml Total Protein (6.0-8.3) gm/dl Albumin (3.4-5.0) gm/dl Globulin (2.5-4.0) gm/dl Albumin/Globulin Ratio (0.9-2) Vitamin B12 (180-914) pg/ml Folate (>5.38) ng/ml TSH (0.300-4.500) uIu/ml Urine Color Urine Appearance (Clear) Urine pH (4.5-7.5) Ur Specific [place] (1.000-1.030) Urine Protein (Negative) Urine Glucose (UA) (Negative) Urine Ketones (Negative) Urine Blood (Negative) Urine Nitrite (Negative) Urine Bilirubin (Negative) Urine Urobilinogen (Negative) Ur Leukocyte Esterase (Negative) Urine WBC (Auto) (0-5) /hpf Urine RBC (Auto) (0-4) /hpf U Hyaline Cast (Auto) (0-5) /lpf U Epithel Cells (Auto) (0-5) /lpf Urine Bacteria (Auto) (Negative) Urine RBC (0-4) /hpf Urine WBC (0-5) /hpf Ur Epithelial Cells (0-5) /lpf Urine Bacteria (Negative) Nasal Screen MRSA (PCR) (Negative) Staphylococcus sp PCR (NotDetected) mecA/C-Methicil Resis Gene (NotDetected) Staph epidermidis (PCR) (NotDetected) Bld Cult ID Panel PCR (NotDetected) 02/22/24 02/22/24 02/22/24 Range/Units 03:12 01:59 01:02 WBC (4.8-10.8) K/ul RBC (4.20-5.40) M/uL Hgb (12.0-16.0) g/dl Hct (37.0-47.0) % MCV (80.0-100.0) fL MCH (25.0-34.0) pg MCHC (32.0-36.0) g/dL RDW Std Deviation (36.4-46.3) fL RDW Coeff of Marj (11.5-14.5) % Plt Count (130-400) K/uL MPV (9.4-12.4) fL Immature Gran % (Auto) % Neut % (Auto) % Lymph % (Auto) % [place] % (Auto) % Eos % (Auto) % Baso % (Auto) % Neut # (Auto) (1.40-6.50) K/uL Lymph # (Auto) (1.20-3.40) K/uL [place] # (Auto) (0.11-0.59) K/uL Eos # (Auto) (0.00-0.50) K/uL Baso # (Auto) (0.00-0.20) K/uL Immature Gran # (Auto) (0.01-0.20) K/uL Absolute Nucleated RBC (0.00-0.12) K/uL Nucleated RBC % (auto) % Polychromasia Ovalocytes Echinocytes ESR (0-30) mm/hr PT (9.0-12.0) Seconds INR (0.9-1.1) APTT (21-31) Seconds PTT Ratio Heparin Anti-Xa, Unfract (0.3-0.7) IU/ml VBG pH (7.36-7.41) VBG pCO2 (38-50) mmHg VBG pO2 mmHg VBG HCO3 mmol/L VBG O2 Saturation % VBG Base Excess mEq/L Sodium (136-145) mmol/L Potassium (3.5-5.1) mmol/L Chloride (98-107) mmol/L Carbon Dioxide (21-32) mmol/L Anion Gap (3-11) BUN (6-23) mg/dl Creatinine (0.6-1.2) mg/dl Est Cr Clr Drug Dosing ml/min Est GFR ( Amer) ml/min Est GFR (Non-Af Amer) ml/min BUN/Creatinine Ratio (10-20) Glucose (70-99(Fasting)) mg/dl POC Glucose 242 H 275 H 304 H* (70-99) mg/dl Lactate (0.4-2.0) mmol/L Calcium (8.6-10.3) mg/dl Phosphorus (2.5-4.9) mg/dl Magnesium (1.7-2.4) mg/dl Iron (35-150) mcg/dl TIBC (250-450) mcg/dl Unsaturated IBC (155-355) mcg/dl Transferrin % Sat (15-50) % Ferritin (8-388) ng/ml Total Bilirubin (0.2-1.0) mg/dl AST (13-39) U/L ALT (7-52) U/L Alkaline Phosphatase (34-104) U/L Ammonia (18-72) umol/L Total Creatine Kinase (26-192) U/L Troponin I High Sens (0-14) pg/ml C-Reactive Protein (0-0.5) mg/dl B-Natriuretic Peptide (0-100) pg/ml Total Protein (6.0-8.3) gm/dl Albumin (3.4-5.0) gm/dl Globulin (2.5-4.0) gm/dl Albumin/Globulin Ratio (0.9-2) Vitamin B12 (180-914) pg/ml Folate (>5.38) ng/ml TSH (0.300-4.500) uIu/ml Urine Color Urine Appearance (Clear) Urine pH (4.5-7.5) Ur Specific [place] (1.000-1.030) Urine Protein (Negative) Urine Glucose (UA) (Negative) Urine Ketones (Negative) Urine Blood (Negative) Urine Nitrite (Negative) Urine Bilirubin (Negative) Urine Urobilinogen (Negative) Ur Leukocyte Esterase (Negative) Urine WBC (Auto) (0-5) /hpf Urine RBC (Auto) (0-4) /hpf U Hyaline Cast (Auto) (0-5) /lpf U Epithel Cells (Auto) (0-5) /lpf Urine Bacteria (Auto) (Negative) Urine RBC (0-4) /hpf Urine WBC (0-5) /hpf Ur Epithelial Cells (0-5) /lpf Urine Bacteria (Negative) Nasal Screen MRSA (PCR) (Negative) Staphylococcus sp PCR (NotDetected) mecA/C-Methicil Resis Gene (NotDetected) Staph epidermidis (PCR) (NotDetected) Bld Cult ID Panel PCR (NotDetected) 02/22/24 02/22/24 02/21/24 Range/Units 01:01 00:07 23:13 WBC 9.37 (4.8-10.8) K/ul RBC 5.34 (4.20-5.40) M/uL Hgb 13.6 (12.0-16.0) g/dl Hct 41.5 (37.0-47.0) % MCV 77.7 L (80.0-100.0) fL MCH 25.5 (25.0-34.0) pg MCHC 32.8 (32.0-36.0) g/dL RDW Std Deviation 44.1 (36.4-46.3) fL RDW Coeff of Marj 17.2 H (11.5-14.5) % Plt Count 179 (130-400) K/uL MPV 11.2 (9.4-12.4) fL Immature Gran % (Auto) 0.2 % Neut % (Auto) 90.3 % Lymph % (Auto) 4.8 % [place] % (Auto) 4.5 % Eos % (Auto) 0.1 % Baso % (Auto) 0.1 % Neut # (Auto) 8.46 H (1.40-6.50) K/uL Lymph # (Auto) 0.45 L (1.20-3.40) K/uL [place] # (Auto) 0.42 (0.11-0.59) K/uL Eos # (Auto) 0.01 (0.00-0.50) K/uL Baso # (Auto) 0.01 (0.00-0.20) K/uL Immature Gran # (Auto) 0.02 (0.01-0.20) K/uL Absolute Nucleated RBC (0.00-0.12) K/uL Nucleated RBC % (auto) % Polychromasia Ovalocytes Echinocytes ESR (0-30) mm/hr PT 17.3 H (9.0-12.0) Seconds INR 1.6 H (0.9-1.1) APTT 32 H (21-31) Seconds PTT Ratio 1.1 Heparin Anti-Xa, Unfract (0.3-0.7) IU/ml VBG pH (7.36-7.41) VBG pCO2 (38-50) mmHg VBG pO2 mmHg VBG HCO3 mmol/L VBG O2 Saturation % VBG Base Excess mEq/L Sodium (136-145) mmol/L Potassium (3.5-5.1) mmol/L Chloride (98-107) mmol/L Carbon Dioxide (21-32) mmol/L Anion Gap (3-11) BUN (6-23) mg/dl Creatinine (0.6-1.2) mg/dl Est Cr Clr Drug Dosing ml/min Est GFR ( Amer) ml/min Est GFR (Non-Af Amer) ml/min BUN/Creatinine Ratio (10-20) Glucose (70-99(Fasting)) mg/dl POC Glucose 316 H* (70-99) mg/dl Lactate (0.4-2.0) mmol/L Calcium (8.6-10.3) mg/dl Phosphorus (2.5-4.9) mg/dl Magnesium (1.7-2.4) mg/dl Iron (35-150) mcg/dl TIBC (250-450) mcg/dl Unsaturated IBC (155-355) mcg/dl Transferrin % Sat (15-50) % Ferritin (8-388) ng/ml Total Bilirubin (0.2-1.0) mg/dl AST (13-39) U/L ALT (7-52) U/L Alkaline Phosphatase (34-104) U/L Ammonia (18-72) umol/L Total Creatine Kinase (26-192) U/L Troponin I High Sens 171.4 H* D (0-14) pg/ml C-Reactive Protein (0-0.5) mg/dl B-Natriuretic Peptide (0-100) pg/ml Total Protein (6.0-8.3) gm/dl Albumin (3.4-5.0) gm/dl Globulin (2.5-4.0) gm/dl Albumin/Globulin Ratio (0.9-2) Vitamin B12 (180-914) pg/ml Folate (>5.38) ng/ml TSH (0.300-4.500) uIu/ml Urine Color Urine Appearance (Clear) Urine pH (4.5-7.5) Ur Specific [place] (1.000-1.030) Urine Protein (Negative) Urine Glucose (UA) (Negative) Urine Ketones (Negative) Urine Blood (Negative) Urine Nitrite (Negative) Urine Bilirubin (Negative) Urine Urobilinogen (Negative) Ur Leukocyte Esterase (Negative) Urine WBC (Auto) (0-5) /hpf Urine RBC (Auto) (0-4) /hpf U Hyaline Cast (Auto) (0-5) /lpf U Epithel Cells (Auto) (0-5) /lpf Urine Bacteria (Auto) (Negative) Urine RBC (0-4) /hpf Urine WBC (0-5) /hpf Ur Epithelial Cells (0-5) /lpf Urine Bacteria (Negative) Nasal Screen MRSA (PCR) (Negative) Staphylococcus sp PCR (NotDetected) mecA/C-Methicil Resis Gene (NotDetected) Staph epidermidis (PCR) (NotDetected) Bld Cult ID Panel PCR (NotDetected) 02/21/24 02/21/24 02/21/24 Range/Units 23:12 23:03 21:13 WBC (4.8-10.8) K/ul RBC (4.20-5.40) M/uL Hgb (12.0-16.0) g/dl Hct (37.0-47.0) % MCV (80.0-100.0) fL MCH (25.0-34.0) pg MCHC (32.0-36.0) g/dL RDW Std Deviation (36.4-46.3) fL RDW Coeff of Marj (11.5-14.5) % Plt Count (130-400) K/uL MPV (9.4-12.4) fL Immature Gran % (Auto) % Neut % (Auto) % Lymph % (Auto) % [place] % (Auto) % Eos % (Auto) % Baso % (Auto) % Neut # (Auto) (1.40-6.50) K/uL Lymph # (Auto) (1.20-3.40) K/uL [place] # (Auto) (0.11-0.59) K/uL Eos # (Auto) (0.00-0.50) K/uL Baso # (Auto) (0.00-0.20) K/uL Immature Gran # (Auto) (0.01-0.20) K/uL Absolute Nucleated RBC (0.00-0.12) K/uL Nucleated RBC % (auto) % Polychromasia Ovalocytes Echinocytes ESR (0-30) mm/hr PT (9.0-12.0) Seconds INR (0.9-1.1) APTT (21-31) Seconds PTT Ratio Heparin Anti-Xa, Unfract (0.3-0.7) IU/ml VBG pH (7.36-7.41) VBG pCO2 (38-50) mmHg VBG pO2 mmHg VBG HCO3 mmol/L VBG O2 Saturation % VBG Base Excess mEq/L Sodium 133 L (136-145) mmol/L Potassium 3.7 (3.5-5.1) mmol/L Chloride 91 L (98-107) mmol/L Carbon Dioxide 22 (21-32) mmol/L Anion Gap 20 H (3-11) BUN 68 H (6-23) mg/dl Creatinine 1.09 (0.6-1.2) mg/dl Est Cr Clr Drug Dosing 41.1 ml/min Est GFR ( Amer) 60.8 ml/min Est GFR (Non-Af Amer) 52.5 ml/min BUN/Creatinine Ratio 62.4 H (10-20) Glucose 369 H* (70-99(Fasting)) mg/dl POC Glucose 344 H* 373 H* (70-99) mg/dl Lactate 5.5 H* (0.4-2.0) mmol/L Calcium 8.9 (8.6-10.3) mg/dl Phosphorus (2.5-4.9) mg/dl Magnesium (1.7-2.4) mg/dl Iron (35-150) mcg/dl TIBC (250-450) mcg/dl Unsaturated IBC (155-355) mcg/dl Transferrin % Sat (15-50) % Ferritin (8-388) ng/ml Total Bilirubin (0.2-1.0) mg/dl AST (13-39) U/L ALT (7-52) U/L Alkaline Phosphatase (34-104) U/L Ammonia (18-72) umol/L Total Creatine Kinase (26-192) U/L Troponin I High Sens (0-14) pg/ml C-Reactive Protein (0-0.5) mg/dl B-Natriuretic Peptide (0-100) pg/ml Total Protein (6.0-8.3) gm/dl Albumin (3.4-5.0) gm/dl Globulin (2.5-4.0) gm/dl Albumin/Globulin Ratio (0.9-2) Vitamin B12 (180-914) pg/ml Folate (>5.38) ng/ml TSH (0.300-4.500) uIu/ml Urine Color Urine Appearance (Clear) Urine pH (4.5-7.5) Ur Specific [place] (1.000-1.030) Urine Protein (Negative) Urine Glucose (UA) (Negative) Urine Ketones (Negative) Urine Blood (Negative) Urine Nitrite (Negative) Urine Bilirubin (Negative) Urine Urobilinogen (Negative) Ur Leukocyte Esterase (Negative) Urine WBC (Auto) (0-5) /hpf Urine RBC (Auto) (0-4) /hpf U Hyaline Cast (Auto) (0-5) /lpf U Epithel Cells (Auto) (0-5) /lpf Urine Bacteria (Auto) (Negative) Urine RBC (0-4) /hpf Urine WBC (0-5) /hpf Ur Epithelial Cells (0-5) /lpf Urine Bacteria (Negative) Nasal Screen MRSA (PCR) (Negative) Staphylococcus sp PCR (NotDetected) mecA/C-Methicil Resis Gene (NotDetected) Staph epidermidis (PCR) (NotDetected) Bld Cult ID Panel PCR (NotDetected) 02/21/24 02/21/24 02/21/24 Range/Units 20:15 20:08 17:33 WBC (4.8-10.8) K/ul RBC (4.20-5.40) M/uL Hgb (12.0-16.0) g/dl Hct (37.0-47.0) % MCV (80.0-100.0) fL MCH (25.0-34.0) pg MCHC (32.0-36.0) g/dL RDW Std Deviation (36.4-46.3) fL RDW Coeff of Marj (11.5-14.5) % Plt Count (130-400) K/uL MPV (9.4-12.4) fL Immature Gran % (Auto) % Neut % (Auto) % Lymph % (Auto) % [place] % (Auto) % Eos % (Auto) % Baso % (Auto) % Neut # (Auto) (1.40-6.50) K/uL Lymph # (Auto) (1.20-3.40) K/uL [place] # (Auto) (0.11-0.59) K/uL Eos # (Auto) (0.00-0.50) K/uL Baso # (Auto) (0.00-0.20) K/uL Immature Gran # (Auto) (0.01-0.20) K/uL Absolute Nucleated RBC (0.00-0.12) K/uL Nucleated RBC % (auto) % Polychromasia Ovalocytes Echinocytes ESR (0-30) mm/hr PT (9.0-12.0) Seconds INR (0.9-1.1) APTT (21-31) Seconds PTT Ratio Heparin Anti-Xa, Unfract (0.3-0.7) IU/ml VBG pH 7.38 (7.36-7.41) VBG pCO2 29 L (38-50) mmHg VBG pO2 60 mmHg VBG HCO3 17 mmol/L VBG O2 Saturation 89.6 % VBG Base Excess -6.6 mEq/L Sodium (136-145) mmol/L Potassium (3.5-5.1) mmol/L Chloride (98-107) mmol/L Carbon Dioxide (21-32) mmol/L Anion Gap (3-11) BUN (6-23) mg/dl Creatinine (0.6-1.2) mg/dl Est Cr Clr Drug Dosing ml/min Est GFR ( Amer) ml/min Est GFR (Non-Af Amer) ml/min BUN/Creatinine Ratio (10-20) Glucose (70-99(Fasting)) mg/dl POC Glucose 371 H* (70-99) mg/dl Lactate 3.5 H* 4.9 H* (0.4-2.0) mmol/L Calcium (8.6-10.3) mg/dl Phosphorus (2.5-4.9) mg/dl Magnesium (1.7-2.4) mg/dl Iron (35-150) mcg/dl TIBC (250-450) mcg/dl Unsaturated IBC (155-355) mcg/dl Transferrin % Sat (15-50) % Ferritin (8-388) ng/ml Total Bilirubin (0.2-1.0) mg/dl AST (13-39) U/L ALT (7-52) U/L Alkaline Phosphatase (34-104) U/L Ammonia (18-72) umol/L Total Creatine Kinase (26-192) U/L Troponin I High Sens (0-14) pg/ml C-Reactive Protein (0-0.5) mg/dl B-Natriuretic Peptide (0-100) pg/ml Total Protein (6.0-8.3) gm/dl Albumin (3.4-5.0) gm/dl Globulin (2.5-4.0) gm/dl Albumin/Globulin Ratio (0.9-2) Vitamin B12 (180-914) pg/ml Folate (>5.38) ng/ml TSH (0.300-4.500) uIu/ml Urine Color Urine Appearance (Clear) Urine pH (4.5-7.5) Ur Specific [place] (1.000-1.030) Urine Protein (Negative) Urine Glucose (UA) (Negative) Urine Ketones (Negative) Urine Blood (Negative) Urine Nitrite (Negative) Urine Bilirubin (Negative) Urine Urobilinogen (Negative) Ur Leukocyte Esterase (Negative) Urine WBC (Auto) (0-5) /hpf Urine RBC (Auto) (0-4) /hpf U Hyaline Cast (Auto) (0-5) /lpf U Epithel Cells (Auto) (0-5) /lpf Urine Bacteria (Auto) (Negative) Urine RBC (0-4) /hpf Urine WBC (0-5) /hpf Ur Epithelial Cells (0-5) /lpf Urine Bacteria (Negative) Nasal Screen MRSA (PCR) (Negative) Staphylococcus sp PCR (NotDetected) mecA/C-Methicil Resis Gene (NotDetected) Staph epidermidis (PCR) (NotDetected) Bld Cult ID Panel PCR (NotDetected) 02/21/24 02/21/24 02/21/24 Range/Units 17:32 17:10 15:54 WBC (4.8-10.8) K/ul RBC (4.20-5.40) M/uL Hgb (12.0-16.0) g/dl Hct (37.0-47.0) % MCV (80.0-100.0) fL MCH (25.0-34.0) pg MCHC (32.0-36.0) g/dL RDW Std Deviation (36.4-46.3) fL RDW Coeff of Marj (11.5-14.5) % Plt Count (130-400) K/uL MPV (9.4-12.4) fL Immature Gran % (Auto) % Neut % (Auto) % Lymph % (Auto) % [place] % (Auto) % Eos % (Auto) % Baso % (Auto) % Neut # (Auto) (1.40-6.50) K/uL Lymph # (Auto) (1.20-3.40) K/uL [place] # (Auto) (0.11-0.59) K/uL Eos # (Auto) (0.00-0.50) K/uL Baso # (Auto) (0.00-0.20) K/uL Immature Gran # (Auto) (0.01-0.20) K/uL Absolute Nucleated RBC (0.00-0.12) K/uL Nucleated RBC % (auto) % Polychromasia Ovalocytes Echinocytes ESR (0-30) mm/hr PT (9.0-12.0) Seconds INR (0.9-1.1) APTT (21-31) Seconds PTT Ratio Heparin Anti-Xa, Unfract (0.3-0.7) IU/ml VBG pH (7.36-7.41) VBG pCO2 (38-50) mmHg VBG pO2 mmHg VBG HCO3 mmol/L VBG O2 Saturation % VBG Base Excess mEq/L Sodium (136-145) mmol/L Potassium (3.5-5.1) mmol/L Chloride (98-107) mmol/L Carbon Dioxide (21-32) mmol/L Anion Gap (3-11) BUN (6-23) mg/dl Creatinine (0.6-1.2) mg/dl Est Cr Clr Drug Dosing ml/min Est GFR ( Amer) ml/min Est GFR (Non-Af Amer) ml/min BUN/Creatinine Ratio (10-20) Glucose (70-99(Fasting)) mg/dl POC Glucose (70-99) mg/dl Lactate 6.6 H* (0.4-2.0) mmol/L Calcium (8.6-10.3) mg/dl Phosphorus (2.5-4.9) mg/dl Magnesium (1.7-2.4) mg/dl Iron (35-150) mcg/dl TIBC (250-450) mcg/dl Unsaturated IBC (155-355) mcg/dl Transferrin % Sat (15-50) % Ferritin (8-388) ng/ml Total Bilirubin (0.2-1.0) mg/dl AST (13-39) U/L ALT (7-52) U/L Alkaline Phosphatase (34-104) U/L Ammonia (18-72) umol/L Total Creatine Kinase (26-192) U/L Troponin I High Sens 125.5 H* (0-14) pg/ml C-Reactive Protein (0-0.5) mg/dl B-Natriuretic Peptide (0-100) pg/ml Total Protein (6.0-8.3) gm/dl Albumin (3.4-5.0) gm/dl Globulin (2.5-4.0) gm/dl Albumin/Globulin Ratio (0.9-2) Vitamin B12 (180-914) pg/ml Folate (>5.38) ng/ml TSH (0.300-4.500) uIu/ml Urine Color Dark Yellow Urine Appearance Clear (Clear) Urine pH 5.0 (4.5-7.5) Ur Specific [place] 1.024 (1.000-1.030) Urine Protein 2+ H (Negative) Urine Glucose (UA) 3+ H (Negative) Urine Ketones 1+ H (Negative) Urine Blood Negative (Negative) Urine Nitrite Negative (Negative) Urine Bilirubin 1+ H (Negative) Urine Urobilinogen Negative (Negative) Ur Leukocyte Esterase 1+ H (Negative) Urine WBC (Auto) 10-30 H (0-5) /hpf Urine RBC (Auto) 0-4 (0-4) /hpf U Hyaline Cast (Auto) 1-5 (0-5) /lpf U Epithel Cells (Auto) >30 H (0-5) /lpf Urine Bacteria (Auto) Negative (Negative) Urine RBC (0-4) /hpf Urine WBC (0-5) /hpf Ur Epithelial Cells (0-5) /lpf Urine Bacteria (Negative) Nasal Screen MRSA (PCR) (Negative) Staphylococcus sp PCR (NotDetected) mecA/C-Methicil Resis Gene (NotDetected) Staph epidermidis (PCR) (NotDetected) Bld Cult ID Panel PCR (NotDetected) 02/21/24 02/21/24 02/21/24 Range/Units 15:17 15:16 15:00 WBC 9.94 (4.8-10.8) K/ul RBC 5.64 H (4.20-5.40) M/uL Hgb 14.4 (12.0-16.0) g/dl Hct 44.0 (37.0-47.0) % MCV 78.0 L (80.0-100.0) fL MCH 25.5 (25.0-34.0) pg MCHC 32.7 (32.0-36.0) g/dL RDW Std Deviation 44.9 (36.4-46.3) fL RDW Coeff of Marj 17.4 H (11.5-14.5) % Plt Count 192 (130-400) K/uL MPV 12.0 (9.4-12.4) fL Immature Gran % (Auto) 0.3 % Neut % (Auto) 90.4 % Lymph % (Auto) 4.7 % [place] % (Auto) 4.4 % Eos % (Auto) 0.1 % Baso % (Auto) 0.1 % Neut # (Auto) 8.98 H (1.40-6.50) K/uL Lymph # (Auto) 0.47 L (1.20-3.40) K/uL [place] # (Auto) 0.44 (0.11-0.59) K/uL Eos # (Auto) 0.01 (0.00-0.50) K/uL Baso # (Auto) 0.01 (0.00-0.20) K/uL Immature Gran # (Auto) 0.03 (0.01-0.20) K/uL Absolute Nucleated RBC (0.00-0.12) K/uL Nucleated RBC % (auto) % Polychromasia 1+ Ovalocytes 1+ Echinocytes 2+ ESR (0-30) mm/hr PT (9.0-12.0) Seconds INR (0.9-1.1) APTT (21-31) Seconds PTT Ratio Heparin Anti-Xa, Unfract (0.3-0.7) IU/ml VBG pH (7.36-7.41) VBG pCO2 (38-50) mmHg VBG pO2 mmHg VBG HCO3 mmol/L VBG O2 Saturation % VBG Base Excess mEq/L Sodium 132 L (136-145) mmol/L Potassium 3.8 (3.5-5.1) mmol/L Chloride 89 L (98-107) mmol/L Carbon Dioxide 24 (21-32) mmol/L Anion Gap 19 H (3-11) BUN 68 H (6-23) mg/dl Creatinine 1.07 (0.6-1.2) mg/dl Est Cr Clr Drug Dosing 41.9 ml/min Est GFR ( Amer) 62.2 ml/min Est GFR (Non-Af Amer) 53.7 ml/min BUN/Creatinine Ratio 63.6 H (10-20) Glucose 371 H* (70-99(Fasting)) mg/dl POC Glucose 347 H* 78 (70-99) mg/dl Lactate (0.4-2.0) mmol/L Calcium 9.4 (8.6-10.3) mg/dl Phosphorus (2.5-4.9) mg/dl Magnesium 1.8 (1.7-2.4) mg/dl Iron (35-150) mcg/dl TIBC (250-450) mcg/dl Unsaturated IBC (155-355) mcg/dl Transferrin % Sat (15-50) % Ferritin (8-388) ng/ml Total Bilirubin 2.1 H (0.2-1.0) mg/dl AST 79 H (13-39) U/L ALT 60 H (7-52) U/L Alkaline Phosphatase 87 (34-104) U/L Ammonia (18-72) umol/L Total Creatine Kinase 461 H (26-192) U/L Troponin I High Sens 138.7 H* (0-14) pg/ml C-Reactive Protein (0-0.5) mg/dl B-Natriuretic Peptide 1097 H (0-100) pg/ml Total Protein 6.7 (6.0-8.3) gm/dl Albumin 3.7 (3.4-5.0) gm/dl Globulin 3.0 (2.5-4.0) gm/dl Albumin/Globulin Ratio 1.2 (0.9-2) Vitamin B12 (180-914) pg/ml Folate (>5.38) ng/ml TSH 2.401 (0.300-4.500) uIu/ml Urine Color Urine Appearance (Clear) Urine pH (4.5-7.5) Ur Specific [place] (1.000-1.030) Urine Protein (Negative) Urine Glucose (UA) (Negative) Urine Ketones (Negative) Urine Blood (Negative) Urine Nitrite (Negative) Urine Bilirubin (Negative) Urine Urobilinogen (Negative) Ur Leukocyte Esterase (Negative) Urine WBC (Auto) (0-5) /hpf Urine RBC (Auto) (0-4) /hpf U Hyaline Cast (Auto) (0-5) /lpf U Epithel Cells (Auto) (0-5) /lpf Urine Bacteria (Auto) (Negative) Urine RBC (0-4) /hpf Urine WBC (0-5) /hpf Ur Epithelial Cells (0-5) /lpf Urine Bacteria (Negative) Nasal Screen MRSA (PCR) (Negative) Staphylococcus sp PCR DETECTED A (NotDetected) mecA/C-Methicil Resis Gene Not Detected (NotDetected) Staph epidermidis (PCR) DETECTED A (NotDetected) Bld Cult ID Panel PCR See PCR Comment (NotDetected) Diagnostic Findings Laboratory Results WBC 7.44 K/ul (4.8-10.8) 02/26/24 05:29 RBC 5.35 M/uL (4.20-5.40) 02/26/24 05:29 Hgb 13.5 g/dl (12.0-16.0) 02/26/24 05:29 Hct 41.4 % (37.0-47.0) 02/26/24 05:29 MCV 77.4 fL (80.0-100.0) L 02/26/24 05:29 MCH 25.2 pg (25.0-34.0) 02/26/24 05:29 MCHC 32.6 g/dL (32.0-36.0) 02/26/24 05:29 RDW Std Deviation 46.5 fL (36.4-46.3) H 02/26/24 05:29 RDW Coeff of Marj 18.0 % (11.5-14.5) H 02/26/24 05:29 Plt Count 139 K/uL (130-400) 02/26/24 05:29 MPV 12.7 fL (9.4-12.4) H 02/26/24 05:29 Immature Gran % (Auto) 0.3 % 02/22/24 06:59 Neut % (Auto) 84.1 % 02/22/24 06:59 Lymph % (Auto) 8.6 % 02/22/24 06:59 [place] % (Auto) 6.6 % 02/22/24 06:59 Eos % (Auto) 0.3 % 02/22/24 06:59 Baso % (Auto) 0.1 % 02/22/24 06:59 Neut # (Auto) 7.79 K/uL (1.40-6.50) H 02/22/24 06:59 Lymph # (Auto) 0.80 K/uL (1.20-3.40) L 02/22/24 06:59 [place] # (Auto) 0.61 K/uL (0.11-0.59) H 02/22/24 06:59 Eos # (Auto) 0.03 K/uL (0.00-0.50) 02/22/24 06:59 Baso # (Auto) 0.01 K/uL (0.00-0.20) 02/22/24 06:59 Immature Gran # (Auto) 0.03 K/uL (0.01-0.20) 02/22/24 06:59 Absolute Nucleated RBC 0.03 K/uL (0.00-0.12) 02/26/24 05:29 Nucleated RBC % (auto) 0.4 % 02/26/24 05:29 Polychromasia 1+ 02/21/24 15:16 Ovalocytes 1+ 02/21/24 15:16 Echinocytes 2+ 02/21/24 15:16 ESR 5 mm/hr (0-30) 02/22/24 06:59 PT 17.3 Seconds (9.0-12.0) H 02/22/24 01:01 INR 1.6 (0.9-1.1) H 02/22/24 01:01 APTT 32 Seconds (21-31) H 02/22/24 01:01 PTT Ratio 1.1 02/22/24 01:01 Heparin Anti-Xa, Unfract 0.39 IU/ml (0.3-0.7) 02/26/24 05:29 VBG pH 7.38 (7.36-7.41) 02/21/24 20:08 VBG pCO2 29 mmHg (38-50) L 02/21/24 20:08 VBG pO2 60 mmHg 02/21/24 20:08 VBG HCO3 17 mmol/L 02/21/24 20:08 VBG O2 Saturation 89.6 % 02/21/24 20:08 VBG Base Excess -6.6 mEq/L 02/21/24 20:08 Sodium 132 mmol/L (136-145) L 02/26/24 05:29 Potassium 3.4 mmol/L (3.5-5.1) L 02/26/24 05:29 Chloride 89 mmol/L (98-107) L 02/26/24 05:29 Carbon Dioxide 33 mmol/L (21-32) H 02/26/24 05:29 Anion Gap 10 (3-11) 02/26/24 05:29 BUN 32 mg/dl (6-23) H 02/26/24 05:29 Creatinine 0.82 mg/dl (0.6-1.2) 02/26/24 05:29 Est Cr Clr Drug Dosing 50.2 ml/min 02/26/24 05:29 Est GFR ( Amer) 85.8 ml/min 02/26/24 05:29 Est GFR (Non-Af Amer) 74.0 ml/min 02/26/24 05:29 BUN/Creatinine Ratio 39.0 (10-20) H 02/26/24 05:29 Glucose 59 mg/dl (70-99(Fasting)) L 02/26/24 05:29 POC Glucose 158 mg/dl (70-99) H 02/26/24 11:25 Lactate 2.9 mmol/L (0.4-2.0) H* 02/23/24 12:09 Calcium 8.5 mg/dl (8.6-10.3) L 02/26/24 05:29 Phosphorus 2.6 mg/dl (2.5-4.9) 02/26/24 05:29 Magnesium 2.2 mg/dl (1.7-2.4) 02/26/24 05:29 Iron 27 mcg/dl (35-150) L 02/23/24 05:32 TIBC 294 mcg/dl (250-450) 02/23/24 05:32 Unsaturated IBC 267 mcg/dl (155-355) 02/23/24 05:32 Transferrin % Sat 9 % (15-50) L 02/23/24 05:32 Ferritin 39.6 ng/ml (8-388) 02/23/24 05:32 Total Bilirubin 1.1 mg/dl (0.2-1.0) H 02/23/24 05:32 AST 45 U/L (13-39) H 02/23/24 05:32 ALT 39 U/L (7-52) 02/23/24 05:32 Alkaline Phosphatase 59 U/L (34-104) 02/23/24 05:32 Ammonia 32.0 umol/L (18-72) 02/23/24 12:09 Total Creatine Kinase 130 U/L (26-192) 02/23/24 05:32 Troponin I High Sens 209.3 pg/ml (0-14) H* D 02/22/24 06:59 C-Reactive Protein 2.45 mg/dl (0-0.5) H 02/22/24 06:59 B-Natriuretic Peptide 1097 pg/ml (0-100) H 02/21/24 15:16 Total Protein 5.2 gm/dl (6.0-8.3) L 02/23/24 05:32 Albumin 2.9 gm/dl (3.4-5.0) L 02/23/24 05:32 Globulin 2.3 gm/dl (2.5-4.0) L 02/23/24 05:32 Albumin/Globulin Ratio 1.3 (0.9-2) 02/23/24 05:32 Vitamin B12 1238 pg/ml (180-914) H 02/23/24 05:32 Folate 17.84 ng/ml (>5.38) 02/23/24 05:32 TSH 2.401 uIu/ml (0.300-4.500) 02/21/24 15:16 Urine Color Red 02/23/24 11:50 Urine Appearance Cloudy (Clear) A 02/23/24 11:50 Urine pH (4.5-7.5) 02/23/24 11:50 Ur Specific [place] > 1.060 (1.000-1.030) H 02/23/24 11:50 Urine Protein (Negative) 02/23/24 11:50 Urine Glucose (UA) (Negative) 02/23/24 11:50 Urine Ketones (Negative) 02/23/24 11:50 Urine Blood (Negative) 02/23/24 11:50 Urine Nitrite (Negative) 02/23/24 11:50 Urine Bilirubin (Negative) 02/23/24 11:50 Urine Urobilinogen (Negative) 02/23/24 11:50 Ur Leukocyte Esterase (Negative) 02/23/24 11:50 Urine WBC (Auto) 10-30 /hpf (0-5) H 02/21/24 17:10 Urine RBC (Auto) 0-4 /hpf (0-4) 02/21/24 17:10 U Hyaline Cast (Auto) 1-5 /lpf (0-5) 02/21/24 17:10 U Epithel Cells (Auto) >30 /lpf (0-5) H 02/21/24 17:10 Urine Bacteria (Auto) Negative (Negative) 02/21/24 17:10 Urine RBC >30 /hpf (0-4) H 02/23/24 11:50 Urine WBC 5-10 /hpf (0-5) H 02/23/24 11:50 Ur Epithelial Cells 0-5 /lpf (0-5) 02/23/24 11:50 Urine Bacteria Negative (Negative) 02/23/24 11:50 Nasal Screen MRSA (PCR) Negative (Negative) 02/22/24 Unknown Staphylococcus sp PCR DETECTED (NotDetected) A 02/21/24 15:16 mecA/C-Methicil Resis Gene Not Detected (NotDetected) 02/21/24 15:16 Staph epidermidis (PCR) DETECTED (NotDetected) A 02/21/24 15:16 Bld Cult ID Panel PCR See PCR Comment (NotDetected) 02/21/24 15:16 Impressions Chest X-Ray 02/21/24 15:30 XR chest 1V portable HISTORY: weakness COMPARISON: Chest 01/12/2024. FINDINGS: No pneumothorax. The heart remains enlarged. There are small bilateral pleural effusions with progressive perihilar interstitial/vascular thickening consistent with pulmonary edema. Left basilar linear densities favor subsegmental atelectasis. There are calcifications within the aortic knob. No acute fractures. IMPRESSION: Interval progression of the pulmonary edema with small bilateral pleural effusions. ACT 112: Negative or not required by law. Electronically signed by: Caleb Pace M.D. 02/21/2024 4:[address] 02/21/24 15:[address] DOSE: HISTORY: Neck pain. fall TECHNIQUE: Multiaxial CT images of the cervical spine were performed and reformatted in the sagittal and coronal plane without the use of contrast. A dose lowering technique was utilized adhering to the principles of ALARA. COMPARISON: None. FINDINGS: No fractures. No subluxation. Prevertebral soft tissues and the C1-C2 interval are intact. No pneumothorax. Posterior fusion defect at C1. Left cochlear implant with a few opacified left mastoid air cells. Interlobular septal thickening at the lung apices consistent with pulmonary edema. There are bilateral pleural effusions. Moderate facet degenerative changes within the cervical spine. Severe disc space narrowing at C6-C7 with endplate osteophytes. IMPRESSION: 1. No fractures within the cervical spine. 2. Pulmonary edema and bilateral pleural effusions. ACT 112: Negative or not required by law. Electronically signed by: Caleb Pace M.D. 02/21/2024 4:40 PM Duplex Scan Lower Extremity Artery 02/21/24 18:47 Exam(s): US ARTERIAL BILATERAL LOWER EXTREMITIES EXAM: US Duplex Bilateral Lower Extremities Arteries CLINICAL HISTORY: Reason for exam: r/o obstruction. TECHNIQUE: Real-time duplex ultrasound scan of the bilateral lower extremity arteries integrating B-mode two-dimensional vascular structure, Doppler spectral analysis and color flow Doppler imaging. COMPARISON: No relevant prior studies available. FINDINGS: Right common femoral artery: No acute findings. No occlusion or significant stenosis on color flow and spectral Doppler imaging. Normal waveform. Right superficial femoral artery: No acute findings. No occlusion or significant stenosis on color flow and spectral Doppler imaging. Normal waveform. Right popliteal artery: No acute findings. No occlusion or significant stenosis on color flow and spectral Doppler imaging. Normal waveform. Right calf/foot arteries: No acute findings. No occlusion or significant stenosis on color flow and spectral Doppler imaging. Normal waveform. Left common femoral artery: No acute findings. No occlusion or significant stenosis on color flow and spectral Doppler imaging. Normal waveform. Left superficial femoral artery: No acute findings. No occlusion or significant stenosis on color flow and spectral Doppler imaging. Normal waveform. Left popliteal artery: No acute findings. No occlusion or significant stenosis on color flow and spectral Doppler imaging. Normal waveform. Left calf/foot arteries: No acute findings. No occlusion or significant stenosis on color flow and spectral Doppler imaging. Normal waveform. Soft tissues: Unremarkable. IMPRESSION: Negative bilateral lower extremity duplex arterial ultrasound. No evidence of arterial insufficiency. No focal stenosis identified. Electronically signed by: Stevie Doty MD 02/22/24 00:12 AM Venous Doppler Study 02/21/24 18:47 CR Exam(s): US VENOUS BILATERAL LOWER EXTREMITIES EXAM: US Duplex Bilateral Lower Extremities Veins CLINICAL HISTORY: Reason for exam: r/o dvt. TECHNIQUE: Real-time duplex ultrasound scan of the bilateral lower extremity veins integrating B-mode two-dimensional vascular structure, Doppler spectral analysis, color flow Doppler imaging and compression. COMPARISON: No relevant prior studies available. FINDINGS: Right deep veins: There is isoechoic thrombus within nondilated the peroneal veins and posterior tibial vein. Thrombus in the right posterior tibial vein is occlusive and could be acute. The remaining deep venous structures are patent and compressible. Right superficial veins: Unremarkable. No thrombus in the visualized right great saphenous vein. Left deep veins: See above. Left superficial veins: Unremarkable. No thrombus in the visualized left great saphenous vein. Soft tissues: No acute findings. No popliteal cyst. IMPRESSION: 1. Thrombus in the right posterior tibial vein is occlusive and could be acute. The remaining both lower extremity venous structures are patent and compressible. 2. There is isoechoic thrombus within nondilated the peroneal veins and posterior tibial vein. Communications: Call Doctor DVT acute, progressing Electronically signed by: Stevie Doty MD 02/22/24 00:02 AM Foot X-Ray 02/22/24 14:11 RIGHT FOOT 2 VIEWS CLINICAL HISTORY: Fall. Right foot pain. Swelling. FINDINGS: AP and lateral views of the right foot are compared to study dated 05/07/2023. The skeletal structures are osteopenic. No fracture is seen. Mild osteoarthritic change is seen throughout the foot, greatest at the first metatarsophalangeal joint. There are dorsal and plantar heel spurs. Mild soft tissue swelling is noted. Question a small wound along the dorsum of the forefoot on the lateral projection. No radiodense foreign body is seen. There is atherosclerotic calcification of the regional arteries. IMPRESSION: 1. Soft tissue swelling with no acute bony abnormality identified. 2. Question a small wound/ulcer along the dorsal aspect of the forefoot. Correlate clinically. Electronically signed by: Wilbert Lee M.D. 02/22/2024 3:[address] 02/22/24 15:30 CT SCAN OF THE BRAIN WITHOUT IV CONTRAST CLINICAL HISTORY: Encephalopathy. COMPARISON STUDY: CT of the brain dated 02/21/2024. TECHNIQUE: Unenhanced axial CT scan of the brain is performed from the vertex to the skull base. A dose lowering technique was utilized adhering to the principles of ALARA. There is streak artifact from an electronic device along the left posterior convexity. There is also mild motion artifact. CT DOSE: 547.75 mGy.cm FINDINGS: Brain parenchyma: There is age-advanced involutional change noting moderate confluent subcortical and periventricular microangiopathic disease. There is no hemorrhage, mass effect, or evidence of acute territorial ischemia by CT criteria. Mineralization is noted in the basal ganglia. A focus of left temporal encephalomalacia is consistent with a remote insult. [place]-white matter differentiation is preserved. No extra-axial fluid collection is seen. Ventricles, sulci, cisterns: Prominent secondary to involutional change. Intracranial vasculature: There is atherosclerotic calcification of the cavernous carotid and vertebral artery. Calvarium: Unremarkable. Sinuses and mastoids: The visualized paranasal sinuses are clear. There is postoperative change seen in left mastoid air cells with a left mastoid effusion. The right mastoid air cells are well pneumatized. Orbits: The bony orbits are grossly intact. IMPRESSION: There is no hemorrhage, mass effect, or evidence of acute territorial ischemia by CT criteria. ACT 112: Negative or not required by law. Electronically signed by: Wilbert Lee M.D. 02/22/2024 4:42 PM Abdomen/Pelvis CT 02/23/24 07:36 CT SCAN OF THE ABDOMEN AND PELVIS WITH IV CONTRAST CLINICAL HISTORY: Elevated hepatic transaminases. COMPARISON STUDY: Abdominal ultrasound dated 12/29/2023. TECHNIQUE: Following the IV administration of 92 cc of Optiray 320, CT scan of the abdomen and pelvis is performed from the lung bases to the proximal femora. Images are reviewed in the axial, sagittal, and coronal planes. IV contrast was administered without complication. A dose lowering technique was utilized adhering to the principles of ALARA. The examination is degraded by motion artifact, as well as by streak artifact from the arms which could not be elevated above the abdomen. CT DOSE: 743.23 mGy.cm FINDINGS: Lung bases: The heart is enlarged and without pericardial effusion. The coronary arteries are densely calcified. There are moderate pleural effusions with dependent consolidation. Liver: The contrast-enhanced liver is markedly heterogeneous and shows morphologic changes of cirrhosis. There is mild nodularity of the hepatic surface contour. There is no intrahepatic biliary ductal dilatation. The hepatic veins and portal veins are patent. Gallbladder: Surgically absent noting clips in the gallbladder fossa. Spleen: Normal in size and attenuation. Pancreas: The pancreas is mildly atrophic. Parenchymal calcifications indicate chronic pancreatitis. Adrenal glands: Unremarkable. Kidneys: The contrast enhanced kidneys are normal in size and without hydronephrosis. The kidneys enhance symmetrically. Abdominal vasculature: The abdominal aorta is normal in course and caliber noting mild to moderate atherosclerotic calcification. Bowel: The gastric mucosa appears hyperemic. There is mild colonic fecal retention. No bowel obstruction is seen. A structure that likely represents a normal appendix is seen on image #249. Peritoneum: There is trace perihepatic and pelvic ascites. No intraperitoneal free air is identified. Lymphadenopathy: None. Pelvic viscera: The bladder is decompressed around a Hess catheter. There is pericystic infiltration the uterus is surgically absent. No adnexal lesion is seen. Skeletal structures: The skeletal structures are osteopenic. There is mild lumbosacral spondylosis. Sclerotic change is seen in the sacroiliac joints. No lytic or blastic lesions are seen. Soft tissues: There is anasarca of the body wall. IMPRESSION: 1. The liver is normal in size and markedly heterogeneous in attenuation. Mild nodularity of the surface contour suggests morphologic change of cirrhosis. 2. There are moderate pleural effusions with dependent consolidation. 3. Anasarca and trace abdominopelvic ascites indicate fluid overload. 4. The gastric mucosa appears hyperemic. Correlate clinically for evidence of gastritis. If warranted this could be further assessed with endoscopy. 5. The bladder is decompressed around a Hess catheter and there is pericystic infiltration. Correlate with clinical findings and urinalysis. 6. Additional findings as above. ACT 112: Negative or not required by law. Electronically signed by: Wilbert Lee M.D. 02/23/2024 11:23 AM PG Care Time/CCT Total # of Minutes Spent Total Time Spent with Patient: Total time spent is greater than 50% in coordination of care (as documented) at patient's floor/unit and/or counseling patient: I spent minutes overall addressing this case: 15 min in medical data review/discussion with referring provider(s) and/or preparation for the visit 20 min in direct interaction with the patient/exam 45 min in Advance Care Planning/Goals of Care discussions as detailed above in note (must be >16min) 15 min in subsequent review and synthesis of assessment and plan 15 min communicating with other providers regarding the patient's case:primary tea, nursing, CM Advanced Care Planning 35741 Advanced Care Planning 30 Min [id number] Advanced Care Planning Additional 30 [place] [address] IN/OBS CONSULT LVL 5,80M Patient Type New History Comprehensive Exam Comprehensive Medical Decision Making High Complexity Diagnoses Delirium R41.0 Altered mental status type: delirium Cognitive and behavioral changes R41.89; R46.89 Weakness generalized R53.1 Falls frequently R29.6 Chest pain due to CAD I25.119 Discussion about advance care planning held with family member Z71.0 Palliative care by specialist Z51.5 MELAS (mitochondrial encephalopathy, lactic acidosis and stroke-like episodes) E88.41 NSTEMI (non-ST elevated myocardial infarction) I21.4 Additional Codes Advanced Care Planning - 86410 Advanced Care Planning 30 Min: [id number] Advanced Care Planning 30 Min ([id number]) Advanced Care Planning - 11675 Advanced Care Planning Additional 30 Min: 28712 Advanced Care Planning Additional 30 Min ([id number])
[2024-02-26] MEDS: POTASSIUM CHLORIDE / WTR 10 MEQ/100 ML PLCT IV SCH (12:09)
--- NOTE | 2024-02-26 12:13 | Pharmacy Report ---
Pharmacy Glycemic Short Note 2 - Date of Service February 26, 2024 - Glycemic Short BSG Results (Last 24 hours): 02/25/24 02/25/24 02/25/24 16:31 17:00 19:49 Glucose POC Glucose 57 L* 80 100 H 02/25/24 02/25/24 02/25/24 23:56 23:57 23:57 Glucose POC Glucose 63 L* 81 69 L* 02/26/24 02/26/24 02/26/24 00:20 03:49 05:29 Glucose 59 L POC Glucose 170 H 83 02/26/24 02/26/24 02/26/24 07:21 07:22 07:47 Glucose POC Glucose 67 L* 66 L* 196 H 02/26/24 11:25 Glucose POC Glucose 158 H OUTPATIENT ANTIDIABETIC REGIMEN: * Lantus 15 units SC HS * Novolog 3 units SC TIDM * HbA1c: 8.2% (01/09/24) ASSESSMENT: 02/25: * BSGs 95-043-05-66-158mg/dL the last 24h. Received 8 units of basal and 3 units of bolus insulin yesterday. * Ordered a diet, however no PO intake yet today. Continues on cefazolin. * Will reduce basal today to 5 units given decreased PO. Novolog loosened again due to multiple lows yesterday and this AM. Appears to be very sensitive to insulin so prefer to allow to trend on higher side vs. low. 02/24: * Pt rec'd 12 units of insulin yesterday (8 units basal + 4 units bolus), with BSGs 72, 198, 151, 141. * Pre-lunch BSG was markedly elevated again today (255). It's unclear why this trend is occurring? BSGs are reasonable throughout the rest of the day. * Novolog parameters adjusted this morning to provide additional coverage with breakfast, however, it does not seem as though pt is regularly consuming breakfast, so tiighter carb coverage will not help in this situation. * No further changes at this time. 02/23: * Shanda received 21 units of insulin yesterday, 10 units basal + 11 units bolus. BSGs were: [phone] mg/dL. * Fasting BSG was 92 mg/dL this AM. Will reduce basal by 20% back down to 8 units daily. * Given drop in postprandial BSGs throughout last evening, will loosen carb ratio this AM. * Abx have been discontinued. Continues on heparin drip. 02/21: * CD is a 68 year old female w/ T1DM, admitted for acute/chronic HFrEF (likely related to medication non-compliance) * Patient w/ elevated anion gap (19) and hyperglycemia (BSG >300 mg/dL), but serum bicarbonate and VBG pH WNL - not believed to be DKA * Insulin infusion initiated for hyperglycemia - blood sugars trended down nicely on gtt w/ mild hypoglycemia late morning (69 mg/dL) * Diet initiated and insulin gtt transitioned to SC basal/bolus * Prior admission data suggests that patient is prone to hypoglycemia - will be conservative to start PLAN FOR INPATIENT GLYCEMIC CONTROL: * Basal insulin * Lantus 5 units SC daily * Bolus insulin * NovoLog per scale ACHS or Q6hrs while NPO * Goal Range: Low 120 mg/dL - High 150 mg/dL * Correction Factor: 45 mg/dL/unit * Nutritional / Prandial insulin per carb ratio of 1 unit per 15 grams CHO consumed
--- NOTE | 2024-02-26 14:23 | Hospitalist Progress Note ---
Date of Service February 26, 2024 Assessment & Plan (1) Acute on chronic heart failure with reduced ejection fraction and diastolic dysfunction: (2) Fall: (3) AMS (altered mental status): (4) Cellulitis of foot: (5) Elevated troponin: (6) Hyperglycemia: (7) Type 1 diabetes mellitus: (8) CAD (coronary artery disease): (9) MELAS (mitochondrial encephalopathy, lactic acidosis and stroke-like episodes): (10) H/O: stroke with residual effects: (11) Hypertension: Plan: Ms. Chavez is a 68-year-old female with past med history significant for type 1 diabetes, diabetic polyneuropathy, hyperlipidemia, chronic rhinitis, CAD s/p stent, hypertension, history of CVA, aphasia poststroke, Schatzki"s ring, Mnire's disease,MELAS, cochlear implant in place, was recently in the hospital for acute CHF in 12/2023 who is being admitted for acute on chronic encephal opathy as well as concern for acute on chronic heart failure exacerbation. Patient discharged to home at that time 12/2023. Per previous provider with Addendum: Patient cried in pain when touching bilateral feet on admission. Patient rolling head in pain, with near flaccid forward flexion. Pain in lower extremities likely multifactorial given large laceration of right foot with thrombosis. Foot XR from day prior didn't reveal any rigoberto involvement, which is along the lines of the negative ESR/CRP. Labs consistent with volume overload, however, lactic acidosis initially improved with diuresis notably increased with subsequent attempts. Continued improvement--patient feeding self and attempting to communicate. Long conversation with patient's brother and sister at bedside, with plans to discuss code status with son/POA today regarding code status/dispo planning. Patient's mentation is waxing and waning. Palliative Care was consulted. Family discussion on 02/25, son to discuss hospice with family members at home and update Case management on 02/27/24. Son contacted on 02/26 at about 9:30AM, noted he had not yet spoken to family, hoping to do that later today. Pt is currently being treated for the following, per previous provider with addendum: Gross Hematuria Urology evaluated, urine more clear, hgb stable. Can continue Heparin "pericystic infilitration" noted on imaging, UA without infection Plan for OP follow up Acute on Chronic Heart failure with reduced EF Ischemic Cardiomyopathy s/p [facility] 2019, diffuse CAD Recurrent angina history Elevated Troponin, possibly demand ischemia iso tachycardia/acute illness/HF exacerbation 12/29/2023 revealed severe hypokinesis to akinesis of the basal and mid inferior wall and inferoseptum with [id number] diffuse hypokinesis noted otherwise, LVEF 35-40%. Moderate to severe mitral regurgitation observed as well as tricuspid regurgitation and a moderate-sized left pleural effusion BNP: 1097 Troponin: 138-->125--> 200 (H/O elevated troponins during prior admissions in similar range) CXR: Interval progression of the pulmonary edema with small bilateral pleural effusions EKG: appears to be sinus tachycardia, remains sinus tachy at this time In ER given 40 mg Lasix IV, received additional lasix this am s/p IV lasix on 02/22 Monitor I's and O's, daily weights Monitor on telemetry Cardiology consult, will appreciate recs Patient tolerating PO, encourage Metoprolol 25mg BID PO, liberalized holding parameters to ensure administration -Metoprolol 2.5mg q4h if not PO Hypomagnesemia Hypokalemia Replace aggressively and repeat BMP at 1500 Difficulty encountered with intermittent PO and discomfort with IV site Difficulty trying to replace lytes given intermittent refusal for PO intake and caustic nature of IV Acute metabolic encephalopathy, likely multifactorial *improving MELAS Elevated lactic acidosis Prior left MCA infarction In ER T: 34.3 C rectal, P: 119, BP 109/94, 96% on room air. Upon reassessment T: 35.8 C rectally with Sumit hugger on. P: 117, BP 126/83, R: 20, 96% on room air Lactate: 6.6-->4.9-->7.9 CT Head: no acute intracranial abnormality UA: ?possible UTI vs contamination Urine culture NGTD Blood cultures 1/4 +, likely contaminate, Trend lactate, holding fast Unclear if lactate elevated from MELAS, CHF or underlying infection -Check abd/pelvis for source - constipation/fecal retention, bowel regimen below Continue empiric coverage at this time with Zosyn -MRSA nare negative, discontinue Vanc Monitor for delirium Neurology consult for guidance on MELAS optimization -TSH WNL -B12, folate WNL Encephalopathy likely 2/2 constipation, MSSA cellulitis, HF---continue management Constipation/fecal retention CT ABD/P gastric mucosa appears hyperemic. There is mild colonic fecal retention. s/p suppository Docusate BID Protonix daily Acute thrombus in right tibial vein, DVT BLE foot wounds with signs of venous insufficiency Cellulitis -Heparin drip in interim -Wound consult -Duplex negative for arterial, doppler with thrombus -ESR 5, CRP 2.45 -Broad coverage empirically while infectious work up pends, plan to d/c vanc -Given MSSA on BLE and notable improvement in erythema, will continue course with Cefazolin Coag Negative Staph bacteria, Positive blood culture -Likely contaminate / Continue to monitor Microcytosis MCV notably 76 this morning, and low since admission---iron studies ordered Iron 27, ferritin 39 Venofer 200mg x 3 doses planned, today 3/ Transaminitis -Downtrending, potentially congestive v related to ?infection -Repeat CMP in am -No localizing symptoms Small bilateral pleural effusions -recent thoracentesis on 01/01/2024, no large accumulations that seem warranting procedure -monitor fluid status and oxygenation s/p IV lasix again on 02/22 Mechanical Fall Ambulatory dysfunction Elevated CK *resolved Unwitnessed fall reported today. Reported progressive difficulty with ambulation CT head no acute intracranial abnormality C-spine CT: No acute cervical fracture Fall precautions PT/OT consult pending CK <500 on admission and no PADMA, will repeat--again could be 2/2 underlying MELAS, but will ensure fluids if concern for uptrend/rhabdo component Hyperglycemia DM I A1c: 8.2 on 01/09/2024 Unclear if patient has been giving herself insulin at home recently Glucose 371 in ER. VBG pH WNL Transitioned from insulin drip for hyperglycemia There was no concern for DKA, insulin drip to aid given increasing hyperglycemia and close monitor in DMTI -Basal bolus per aid from glycemic pharmacy Anion Gap Metabolic acidosis *resolved -likely with elevated lactic acid, though improving Diet: HH/DM DVT Prophylaxis: heparin drip Dispo: currently in discussions with palliative Care Admission and Anticipated Discharge Date Admission Date: February 21, 2024 Subjective Pt alert, moving in the bed. Notified by nursing that family at bedside. When presenting, family at bedside noted that they were nieces and were just made aware that pt was in the hospital. Asking for information. They advised that pt's son is POA. Nieces were advised at that time to contact POA for further information. Review of Systems Review of Systems: Unobtainable due to cognitive status Physical Exam Physical Exam: General: Alert Psych: mood and affect could not be determined HEENT: NC/AT CV: RRR Resp: no increased effort of breathing Abdomen: Soft, nontender, nondistended Extremities: No edema in lower extremities bilaterally. Results & Data Results & Data Vital Signs (Past 12 Hours) Vital Signs Temp Pulse Pulse Resp BP BP Pulse Ox 02/26/24 13:30 99 H 02/26/24 13:12 104 H 107/73 02/26/24 12:08 36.6 C 104 H 17 107/73 95 02/26/24 08:13 36.7 C 100 H 18 108/78 97 02/26/24 05:47 92 H 02/26/24 05:16 98 H 117/76 02/26/24 03:56 36.1 C L 02/26/24 03:08 98 H 16 117/75 100 O2 Del Method 02/26/24 13:30 02/26/24 13:12 02/26/24 12:08 Room Air 02/26/24 08:13 Room Air, Non-rebreather 02/26/24 05:47 02/26/24 05:16 02/26/24 03:56 02/26/24 03:08 Room Air (2) Fall Encounter type: initial encounter Qualified Code(s): W19.XXXA - Unspecified fall, initial encounter (3) AMS (altered mental status) Altered mental status type: delirium Qualified Code(s): R41.0 - Disorientation, unspecified
--- NOTE | 2024-02-26 17:08 | Cardiology Progress Note ---
Date of Service February 26, 2024 Assessment & Plan (1) Acute on chronic heart failure with reduced ejection fraction and diastolic dysfunction: (2) Bilateral pleural effusion: (3) Elevated troponin: (4) CAD (coronary artery disease): (5) MELAS (mitochondrial encephalopathy, lactic acidosis and stroke-like episodes): Plan IMPRESSION: Medically complex 68-year-old female admitted due to a fall but found to be in acute on chronic heart failure. Last LVEF of 35% per inpatient echo 12/2023. Chest x-ray with pleural effusion PLAN: Acute on chronic HFrEF: Volume status appears well compensated. Strict I's and O's. Daily weights. 2 g sodium diet. Monitor renal function. Replace potassium to a goal of 4.0 and mag of 2.0. -Lower extremity edema much improved compared to most recent outpatient visit. Elevated troponin: Troponin: 138-->125 (H/O elevated troponin levels during prior admissions in similar range). EKG without ischemic changes. Low likelihood for ACS. Sinus Tach: Patient on IV metoprolol due to poor tolerance of oral medications. Also has not been receiving oral potassium replacement --As noted, patient with progressive decline cognitively over the last few months. Acutely worse this hospital stay. Will definitely need a higher level of care postdischarge rather than going home to live with her son as is her previous baseline. Palliative care approach likely appropriate. Admission and Anticipated Discharge Date Admission Date: February 21, 2024 Subjective Patient able to provide for me a thumbs up sign. Still disoriented. Unable to provide conversant responses. Physical Exam Constitutional: + ill appearing (chronically ill) and + cachectic; no acute distress Neck: normal visual inspection and trachea midline Respiratory: normal respiratory effort; no respiratory distress Auscultation: no rales, no rhonchi and no wheezes Cardiovascular: Rate/Rhythm: regular rhythm and + tachycardic Heart Sounds: normal S1, normal S2 and + murmur Vessels: no JVD Extremities: no edema (trace BLLE pitting edema ) Gastrointestinal (Abdomen): normal bowel sounds, soft, nontender, no hepatosplenomegaly Psychiatric: Orientation: + not oriented to person, + not oriented to place and + not oriented to time Results & Data Vital Signs (Past 12 Hours) Vital Signs Temp Pulse Pulse Resp BP BP Pulse Ox 02/26/24 16:19 36.3 C L 102 H 16 102/71 94 02/26/24 13:30 99 H 02/26/24 13:12 104 H 107/73 02/26/24 12:08 36.6 C 104 H 17 107/73 95 02/26/24 08:13 36.7 C 100 H 18 108/78 97 02/26/24 05:47 92 H 02/26/24 05:16 98 H 117/76 O2 Del Method 02/26/24 16:19 Room Air 02/26/24 13:30 02/26/24 13:12 02/26/24 12:08 Room Air 02/26/24 08:13 Room Air, Non-rebreather 02/26/24 05:47 02/26/24 05:16 Laboratory Results CBC 02/26/24 Range/Units 05:29 WBC 7.44 (4.8-10.8) K/ul RBC 5.35 (4.20-5.40) M/uL Hgb 13.5 (12.0-16.0) g/dl Hct 41.4 (37.0-47.0) % Plt Count 139 (130-400) K/uL Comprehensive Metabolic Panel 02/26/24 Range/Units 05:29 Sodium 132 L (136-145) mmol/L Potassium 3.4 L (3.5-5.1) mmol/L Chloride 89 L (98-107) mmol/L Carbon Dioxide 33 H (21-32) mmol/L BUN 32 H (6-23) mg/dl Creatinine 0.82 (0.6-1.2) mg/dl Glucose 59 L (70-99(Fasting)) mg/dl Calcium 8.5 L (8.6-10.3) mg/dl
[2024-02-27 06:21] LABS: Albumin Globulin Ratio 1.2 (0.9-2); Albumin Level 3.2 gm/dl (3.4-5.0); BUN Creatinine Ratio 43.9 (10-20); Calcium 8.8 mg/dl (8.6-10.3); Est GFR (African American) 69.2 ml/min; Est GFR (Non-African American) 59.7 ml/min; Globulin 2.7 gm/dl (2.5-4.0); Magnesium 2.1 mg/dl (1.7-2.4); Phosphorus 3.5 mg/dl (2.5-4.9); Potassium 3.7 mmol/L (3.5-5.1); Total Protein 5.9 gm/dl (6.0-8.3)
[2024-02-27 06:22] LABS: Hematocrit (blood only) 41.2 % (37.0-47.0); Hemoglobin 13.4 g/dl (12.0-16.0); Mean Corpuscular Hgb Conc 32.5 g/dL (32.0-36.0); Mean Corpuscular Volume 76.9 fL (80.0-100.0); Nucleated RBC # (auto) 0.14 K/uL (0.00-0.12); Nucleated RBC % (auto) 1.4 %; Platelet Count 141 K/uL (130-400); RDW Coefficient of Variation 17.8 % (11.5-14.5); RDW Standard Deviation 45.2 fL (36.4-46.3); Red Blood Count 5.36 M/uL (4.20-5.40); White Blood Count 10.08 K/ul (4.8-10.8)
[2024-02-27 06:32] LABS: ANTI-Xa, UFH(UnfractionatedHep 0.28 IU/ml (0.3-0.7)
--- NOTE | 2024-02-27 10:46 | Cardiology Progress Note ---
Date of Service February 27, 2024 Assessment & Plan (1) Acute on chronic heart failure with reduced ejection fraction and diastolic dysfunction: (2) Bilateral pleural effusion: (3) Elevated troponin: (4) CAD (coronary artery disease): (5) MELAS (mitochondrial encephalopathy, lactic acidosis and stroke-like episodes): Plan IMPRESSION: Medically complex 68-year-old female admitted due to a fall but found to be in acute on chronic heart failure. Last LVEF of 35% per inpatient echo 12/2023. Chest x-ray with pleural effusion Patient was acute on chronic cognitive decline. Now DNR/DNI. PLAN: Volume status improved. Diuretics on hold. She is on unfractioned heparin for findings of DVT. Anticipate possible transition to palliative care approach. Admission and Anticipated Discharge Date Admission Date: February 21, 2024 Subjective Patient resting comfortably. Two of her sisters and her niece are at the [facility]. Physical Exam Constitutional: + ill appearing and + cachectic; no acut e distress Neck: normal visual inspection and trachea midline Respiratory: normal respiratory effort; no respiratory distress Auscultation: no rales, no rhonchi and no wheezes Cardiovascular: Rate/Rhythm: regular rhythm and + tachycardic Heart Sounds: normal S1, normal S2 and + murmur Vessels: no JVD Extremities: no edema (trace BLLE pitting edema ) Gastrointestinal (Abdomen): normal bowel sounds, soft, nontender, no hepatosplenomegaly Psychiatric: Orientation: + not oriented to person (Somnolent), + not oriented to place and + not oriented to time Results & Data Vital Signs (Past 12 Hours) Vital Signs Temp Pulse Pulse Pulse Resp BP BP 02/27/24 09:29 100 H 98/77 L 02/27/24 08:01 36.1 C L 96 H 18 02/27/24 08:00 02/27/24 07:47 93 H 02/27/24 05:30 91 H 02/27/24 04:41 97 H 106/72 02/27/24 03:21 36.3 C L 94 H 18 02/27/24 01:01 93 H 02/27/24 00:36 101 H 02/27/24 00:34 100 H 106/69 02/26/24 22:55 36.3 C L 101 H 17 114/76 BP Pulse Ox O2 Del Method 02/27/24 09:29 02/27/24 08:01 99/66 L 98 Room Air 02/27/24 08:00 Room Air 02/27/24 07:47 02/27/24 05:30 02/27/24 04:41 02/27/24 03:21 106/73 95 Room Air 02/27/24 01:01 02/27/24 00:36 02/27/24 00:34 02/26/24 22:55 95 Room Air
[2024-02-27 13:27] LABS: ANTI-Xa, UFH(UnfractionatedHep 0.27 IU/ml (0.3-0.7)
--- NOTE | 2024-02-27 13:47 | Hospitalist Progress Note ---
Date of Service February 27, 2024 Assessment & Plan (1) Acute on chronic heart failure with reduced ejection fraction and diastolic dysfunction: (2) Fall: (3) AMS (altered mental status): (4) Cellulitis of foot: (5) Elevated troponin: (6) Hyperglycemia: (7) Type 1 diabetes mellitus: (8) CAD (coronary artery disease): (9) MELAS (mitochondrial encephalopathy, lactic acidosis and stroke-like episodes): (10) H/O: stroke with residual effects: (11) Hypertension: Plan: Ms. Chavez is a 68-year-old female with past med history significant for type 1 diabetes, diabetic polyneuropathy, hyperlipidemia, chronic rhinitis, CAD s/p stent, hypertension, history of CVA, aphasia poststroke, Schatzki"s ring, Mnire's disease,MELAS, cochlear implant in place, was recently in the hospital for acute CHF in 12/2023 who is being admitted for acute on chronic encephal opathy as well as concern for acute on chronic heart failure exacerbation. Patient discharged to home at that time 12/2023. Per previous provider with Addendum: Patient cried in pain when touching bilateral feet on admission. Patient rolling head in pain, with near flaccid forward flexion. Pain in lower extremities likely multifactorial given large laceration of right foot with thrombosis. Foot XR from day prior didn't reveal any rigoberto involvement, which is along the lines of the negative ESR/CRP. Labs consistent with volume overload, however, lactic acidosis initially improved with diuresis notably increased with subsequent attempts. Continued improvement--patient feeding self and attempting to communicate. Long conversation with patient's brother and sister at bedside, with plans to discuss code status with son/POA today regarding code status/dispo planning. Patient's mentation is waxing and waning. Palliative Care was consulted. Family discussion on 02/25, son to discuss hospice with family members at home and update Case management on 02/27/24. Son contacted on 02/26 at about 9:30AM, noted he had not yet spoken to family, hoping to do that later today. Pt is currently being treated for the following, per previous provider with addendum: Gross Hematuria Urology evaluated, urine more clear, hgb stable. Can continue Heparin "pericystic infilitration" noted on imaging, UA without infection Plan for OP follow up Acute on Chronic Heart failure with reduced EF Ischemic Cardiomyopathy s/p [facility] 2019, diffuse CAD Recurrent angina history Elevated Troponin, possibly demand ischemia iso tachycardia/acute illness/HF exacerbation 12/29/2023 revealed severe hypokinesis to akinesis of the basal and mid inferior wall and inferoseptum with [id number] diffuse hypokinesis noted otherwise, LVEF 35-40%. Moderate to severe mitral regurgitation observed as well as tricuspid regurgitation and a moderate-sized left pleural effusion BNP: 1097 Troponin: 138-->125--> 200 (H/O elevated troponins during prior admissions in similar range) CXR: Interval progression of the pulmonary edema with small bilateral pleural effusions EKG: appears to be sinus tachycardia, remains sinus tachy at this time In ER given 40 mg Lasix IV, received additional lasix this am s/p IV lasix on 02/22 Monitor I's and O's, daily weights Monitor on telemetry Cardiology consult, will appreciate recs Patient tolerating PO, encourage Metoprolol 25mg BID PO, liberalized holding parameters to ensure administration -Metoprolol 2.5mg q4h if not PO Hypomagnesemia Hypokalemia Replace aggressively and repeat BMP at 1500 Difficulty encountered with intermittent PO and discomfort with IV site Difficulty trying to replace lytes given intermittent refusal for PO intake and caustic nature of IV Acute metabolic encephalopathy, likely multifactorial *improving MELAS Elevated lactic acidosis Prior left MCA infarction In ER T: 34.3 C rectal, P: 119, BP 109/94, 96% on room air. Upon reassessment T: 35.8 C rectally with Sumit hugger on. P: 117, BP 126/83, R: 20, 96% on room air Lactate: 6.6-->4.9-->7.9 CT Head: no acute intracranial abnormality UA: ?possible UTI vs contamination Urine culture NGTD Blood cultures 1/4 +, likely contaminate, Trend lactate, holding fast Unclear if lactate elevated from MELAS, CHF or underlying infection -Check abd/pelvis for source - constipation/fecal retention, bowel regimen below Continue empiric coverage at this time with Zosyn -MRSA nare negative, discontinue Vanc Monitor for delirium Neurology consult for guidance on MELAS optimization -TSH WNL -B12, folate WNL Encephalopathy likely 2/2 constipation, MSSA cellulitis, HF---continue management Constipation/fecal retention CT ABD/P gastric mucosa appears hyperemic. There is mild colonic fecal retention. s/p suppository Docusate BID Protonix daily Acute thrombus in right tibial vein, DVT BLE foot wounds with signs of venous insufficiency Cellulitis -Heparin drip in interim -Wound consult -Duplex negative for arterial, doppler with thrombus -ESR 5, CRP 2.45 -Broad coverage empirically while infectious work up pends, plan to d/c vanc -Given MSSA on BLE and notable improvement in erythema, will continue course with Cefazolin Coag Negative Staph bacteria, Positive blood culture -Likely contaminate / Continue to monitor Microcytosis MCV notably 76 this morning, and low since admission---iron studies ordered Iron 27, ferritin 39 Venofer 200mg x 3 doses planned, today 3/ Transaminitis -Downtrending, potentially congestive v related to ?infection -Repeat CMP in am -No localizing symptoms Small bilateral pleural effusions -recent thoracentesis on 01/01/2024, no large accumulations that seem warranting procedure -monitor fluid status and oxygenation s/p IV lasix again on 02/22 Mechanical Fall Ambulatory dysfunction Elevated CK *resolved Unwitnessed fall reported today. Reported progressive difficulty with ambulation CT head no acute intracranial abnormality C-spine CT: No acute cervical fracture Fall precautions PT/OT consult pending CK <500 on admission and no PADMA, will repeat--again could be 2/2 underlying MELAS, but will ensure fluids if concern for uptrend/rhabdo component Hyperglycemia DM I A1c: 8.2 on 01/09/2024 Unclear if patient has been giving herself insulin at home recently Glucose 371 in ER. VBG pH WNL Transitioned from insulin drip for hyperglycemia There was no concern for DKA, insulin drip to aid given increasing hyperglycemia and close monitor in DMTI -Basal bolus per aid from glycemic pharmacy Anion Gap Metabolic acidosis *resolved -likely with elevated lactic acid, though improving Diet: HH/DM DVT Prophylaxis: heparin drip Dispo: currently in discussions with palliative Care Admission and Anticipated Discharge Date Admission Date: February 21, 2024 Subjective Pt seen with lots of family at bedside. Review of Systems Review of Systems: Unobtainable due to cognitive status Physical Exam Physical Exam: General: sleeping Psych: mood and affect could not be determined HEENT: NC/AT CV: RRR Resp: no increased effort of breathing Abdomen: Soft, nontender, nondistended Extremities: No edema in lower extremities bilaterally. Results & Data Results & Data Vital Signs (Past 12 Hours) Vital Signs Temp Pulse Pulse Pulse Resp BP BP 02/27/24 13:42 101 H 104/62 02/27/24 11:36 36.1 C L 98 H 20 101/69 02/27/24 09:29 100 H 98/77 L 02/27/24 08:01 36.1 C L 96 H 18 99/66 L 02/27/24 08:00 02/27/24 07:47 93 H 02/27/24 05:30 91 H 02/27/24 04:41 97 H 106/72 02/27/24 03:21 36.3 C L 94 H 18 106/73 Pulse Ox O2 Del Method 02/27/24 13:42 02/27/24 11:36 91 Room Air 02/27/24 09:29 02/27/24 08:01 98 Room Air 02/27/24 08:00 Room Air 02/27/24 07:47 02/27/24 05:30 02/27/24 04:41 02/27/24 03:21 95 Room Air (2) Fall Encounter type: initial encounter Qualified Code(s): W19.XXXA - Unspecified fall, initial encounter (3) AMS (altered mental status) Altered mental status type: delirium Qualified Code(s): R41.0 - Disorientation, unspecified
--- NOTE | 2024-02-27 14:50 | Pharmacy Report ---
Pharmacy Glycemic Short Note 2 - Date of Service February 27, 2024 - Glycemic Short BSG Results (Last 24 hours): 02/26/24 02/26/24 02/27/24 16:38 20:17 02:16 Glucose POC Glucose 143 H 129 H 93 02/27/24 02/27/24 02/27/24 05:45 07:16 11:31 Glucose 76 POC Glucose 83 101 H OUTPATIENT ANTIDIABETIC REGIMEN: * Lantus 15 units SC HS * Novolog 3 units SC TIDM * HbA1c: 8.2% (01/09/24) ASSESSMENT: 02/26: * BSGs well controlled yesterday with only 5 units of basal insulin in the morning and no bolus. * Fasting BSG today = 76 mg/dl, pre-lunch BSG = 101 mg/dl. Patient was only eating bites yesterday and today again with hardly any food intake. * Basal dose 5 units was given this morning but will discontinue this for tomorrow. 02/25: * BSGs 08-132-38-66-158mg/dL the last 24h. Received 8 units of basal and 3 units of bolus insulin yesterday. * Ordered a diet, however no PO intake yet today. Continues on cefazolin. * Will reduce basal today to 5 units given decreased PO. Novolog loosened again due to multiple lows yesterday and this AM. Appears to be very sensitive to insulin so prefer to allow to trend on higher side vs. low. 02/24: * Pt rec'd 12 units of insulin yesterday (8 units basal + 4 units bolus), with BSGs 72, 198, 151, 141. * Pre-lunch BSG was markedly elevated again today (255). It's unclear why this trend is occurring? BSGs are reasonable throughout the rest of the day. * Novolog parameters adjusted this morning to provide additional coverage with breakfast, however, it does not seem as though pt is regularly consuming breakfast, so tiighter carb coverage will not help in this situation. * No further changes at this time. 02/23: * Shanda received 21 units of insulin yesterday, 10 units basal + 11 units bolus. BSGs were: 358-730-508-260-158 mg/dL. * Fasting BSG was 92 mg/dL this AM. Will reduce basal by 20% back down to 8 units daily. * Given drop in postprandial BSGs throughout last evening, will loosen carb ratio this AM. * Abx have been discontinued. Continues on heparin drip. 02/21: * CD is a 68 year old female w/ T1DM, admitted for acute/chronic HFrEF (likely related to medication non-compliance) * Patient w/ elevated anion gap (19) and hyperglycemia (BSG >300 mg/dL), but serum bicarbonate and VBG pH WNL - not believed to be DKA * Insulin infusion initiated for hyperglycemia - blood sugars trended down nicely on gtt w/ mild hypoglycemia late morning (69 mg/dL) * Diet initiated and insulin gtt transitioned to SC basal/bolus * Prior admission data suggests that patient is prone to hypoglycemia - will be conservative to start PLAN FOR INPATIENT GLYCEMIC CONTROL: * Basal insulin * Lantus 5 units SC given today; then discontinued. * Bolus insulin * NovoLog per scale ACHS or Q6hrs while NPO * Goal Range: Low 120 mg/dL - High 150 mg/dL * Correction Factor: 45 mg/dL/unit * Nutritional / Prandial insulin per carb ratio of 1 unit per 15 grams CHO consumed
[2024-02-27] MEDS: ACETAMINOPHEN 1,000 MG/100 ML VIAL IV PRN (19:29)
[2024-02-27] MEDS ORDERED: OLANZapine 10 MG/2.1 ML SDV IM PRN (19:54)
[2024-02-27 20:47] LABS: Hematocrit (blood only) 38.9 % (37.0-47.0); Hemoglobin 12.8 g/dl (12.0-16.0)
[2024-02-27 21:21] LABS: ANTI-Xa, UFH(UnfractionatedHep 0.22 IU/ml (0.3-0.7)
[2024-02-27 23:37] LABS: Calcium 8.6 mg/dl (8.6-10.3); Creatinine Clr Calc Pharmacy 36.8 ml/min; Est GFR (African American) 58.9 ml/min; Est GFR (Non-African American) 50.8 ml/min; Potassium 3.7 mmol/L (3.5-5.1)
[2024-02-28] MEDS: ALBUMIN 25% 25 GM/100 ML VIAL IV ONE (02:09)
[2024-02-28 05:09] LABS: Albumin Globulin Ratio 1.5 (0.9-2); Albumin Level 3.4 gm/dl (3.4-5.0); BUN Creatinine Ratio 43.9 (10-20); Bilirubin,Total 0.9 mg/dl (0.2-1.0); Calcium 8.8 mg/dl (8.6-10.3); Creatinine Clr Calc Pharmacy 38.5 ml/min; Est GFR (African American) 62.2 ml/min; Est GFR (Non-African American) 53.7 ml/min; Globulin 2.2 gm/dl (2.5-4.0); Phosphorus 2.6 mg/dl (2.5-4.9); Potassium 3.4 mmol/L (3.5-5.1); Total Protein 5.6 gm/dl (6.0-8.3)
[2024-02-28 05:21] LABS: ANTI-Xa, UFH(UnfractionatedHep 0.24 IU/ml (0.3-0.7)
[2024-02-28 05:25] LABS: Hematocrit (blood only) 34.9 % (37.0-47.0); Hemoglobin 11.7 g/dl (12.0-16.0); Mean Corpuscular Hemoglobin 25.7 pg (25.0-34.0); Mean Corpuscular Hgb Conc 33.5 g/dL (32.0-36.0); Mean Corpuscular Volume 76.7 fL (80.0-100.0); Mean Platelet Volume 11.9 fL (9.4-12.4); Nucleated RBC # (auto) 0.46 K/uL (0.00-0.12); Nucleated RBC % (auto) 5.4 %; Platelet Count 156 K/uL (130-400); RDW Coefficient of Variation 17.6 % (11.5-14.5); RDW Standard Deviation 45.1 fL (36.4-46.3); Red Blood Count 4.55 M/uL (4.20-5.40); White Blood Count 8.48 K/ul (4.8-10.8)
[2024-02-28] MEDS: POTASSIUM CHLORIDE / WTR 10 MEQ/100 ML PLCT IV ONE (10:54)
[2024-02-28] MEDS ORDERED: LORazepam 0.5 MG TAB PO PRN (11:12)
[2024-02-28] MEDS ORDERED: ONDANSETRON INJ 2 MG/ML 2 ML VIAL IV PRN (11:12)
[2024-02-28] MEDS ORDERED: LORazepam 0.5 MG in SYRINGE 0.25 ML IV PRN (11:12)
[2024-02-28] MEDS ORDERED: ONDANSETRON 4 MG OD TAB SL PRN (11:12)
[2024-02-28] MEDS ORDERED: MoRPHine SULFATE 10 MG/0.5 ML UDP PO PRN (11:12)
--- NOTE | 2024-02-28 11:16 | Hospitalist Progress Note ---
Date of Service February 28, 2024 Assessment & Plan (1) Acute on chronic heart failure with reduced ejection fraction and diastolic dysfunction: (2) Fall: (3) AMS (altered mental status): (4) Cellulitis of foot: (5) Elevated troponin: (6) Hyperglycemia: (7) Type 1 diabetes mellitus: (8) CAD (coronary artery disease): (9) MELAS (mitochondrial encephalopathy, lactic acidosis and stroke-like episodes): (10) H/O: stroke with residual effects: (11) Hypertension: Plan: Ms. Chavez is a 68-year-old female with past med history significant for type 1 diabetes, diabetic polyneuropathy, hyperlipidemia, chronic rhinitis, CAD s/p stent, hypertension, history of CVA, aphasia poststroke, Schatzki"s ring, Mnire's disease,MELAS, cochlear implant in place, was recently in the hospital for acute CHF in 12/2023 who is being admitted for acute on chronic encephal opathy as well as concern for acute on chronic heart failure exacerbation. Patient discharged to home at that time 12/2023. Son agreeable to comfort measures and home with hospice on 02/28/24 Per previous provider with Addendum: Patient cried in pain when touching bilateral feet on admission. Patient rolling head in pain, with near flaccid forward flexion. Pain in lower extremities likely multifactorial given large laceration of right foot with thrombosis. Foot XR from day prior didn't reveal any rigoberto involvement, which is along the lines of the negative ESR/CRP. Labs consistent with volume overload, however, lactic acidosis initially improved with diuresis notably increased with subsequent attempts. Continued improvement--patient feeding self and attempting to communicate. Long conversation with patient's brother and sister at bedside, with plans to discuss code status with son/POA today regarding code status/dispo planning. Patient's mentation is waxing and waning. Palliative Care was consulted. Family discussion on 02/25, son to discuss hospice with family members at home and update Case management on 02/27/24. Son contacted on 02/26 at about 9:30AM, noted he had not yet spoken to family, hoping to do that later today. On 02/27, son agreeable to comfort measures transition with goal for home with hospice. Pt was being treated for the following, per previous provider with addendum: Gross Hematuria Urology evaluated, urine more clear, hgb stable. Can continue Heparin "pericystic infilitration" noted on imaging, UA without infection Plan for OP follow up Acute on Chronic Heart failure with reduced EF Ischemic Cardiomyopathy s/p [facility] 2019, diffuse CAD Recurrent angina history Elevated Troponin, possibly demand ischemia iso tachycardia/acute illness/HF exacerbation 12/29/2023 revealed severe hypokinesis to akinesis of the basal and mid inferior wall and inferoseptum with [id number] diffuse hypokinesis noted otherwise, LVEF 35-40%. Moderate to severe mitral regurgitation observed as well as tricuspid regurgitation and a moderate-sized left pleural effusion BNP: 1097 Troponin: 138-->125--> 200 (H/O elevated troponins during prior admissions in similar range) CXR: Interval progression of the pulmonary edema with small bilateral pleural effusions EKG: appears to be sinus tachycardia, remains sinus tachy at this time In ER given 40 mg Lasix IV, received additional lasix this am s/p IV lasix on 02/22 Monitor I's and O's, daily weights Monitor on telemetry Cardiology consult, will appreciate recs Patient tolerating PO, encourage Metoprolol 25mg BID PO, liberalized holding parameters to ensure administration -Metoprolol 2.5mg q4h if not PO Hypomagnesemia Hypokalemia Replace aggressively and repeat BMP at 1500 Difficulty encountered with intermittent PO and discomfort with IV site Difficulty trying to replace lytes given intermittent refusal for PO intake and caustic nature of IV Acute metabolic encephalopathy, likely multifactorial *improving MELAS Elevated lactic acidosis Prior left MCA infarction In ER T: 34.3 C rectal, P: 119, BP 109/94, 96% on room air. Upon reassessment T: 35.8 C rectally with Sumit hugger on. P: 117, BP 126/83, R: 20, 96% on room air Lactate: 6.6-->4.9-->7.9 CT Head: no acute intracranial abnormality UA: ?possible UTI vs contamination Urine culture NGTD Blood cultures 1/4 +, likely contaminate, Trend lactate, holding fast Unclear if lactate elevated from MELAS, CHF or underlying infection -Check abd/pelvis for source - constipation/fecal retention, bowel regimen below Continue empiric coverage at this time with Zosyn -MRSA nare negative, discontinue Vanc Monitor for delirium Neurology consult for guidance on MELAS optimization -TSH WNL -B12, folate WNL Encephalopathy likely 2/2 constipation, MSSA cellulitis, HF---continue management Constipation/fecal retention CT ABD/P gastric mucosa appears hyperemic. There is mild colonic fecal retention. s/p suppository Docusate BID Protonix daily Acute thrombus in right tibial vein, DVT BLE foot wounds with signs of venous insufficiency Cellulitis -Heparin drip in interim -Wound consult -Duplex negative for arterial, doppler with thrombus -ESR 5, CRP 2.45 -Broad coverage empirically while infectious work up pends, plan to d/c vanc -Given MSSA on BLE and notable improvement in erythema, will continue course with Cefazolin Coag Negative Staph bacteria, Positive blood culture -Likely contaminate 1/4 Continue to monitor Microcytosis MCV notably 76 this morning, and low since admission---iron studies ordered Iron 27, ferritin 39 Venofer 200mg x 3 doses planned, today 3/3 Transaminitis -Downtrending, potentially congestive v related to ?infection -Repeat CMP in am -No localizing symptoms Small bilateral pleural effusions -recent thoracentesis on 01/01/2024, no large accumulations that seem warranting procedure -monitor fluid status and oxygenation s/p IV lasix again on 02/22 Mechanical Fall Ambulatory dysfunction Elevated CK *resolved Unwitnessed fall reported today. Reported progressive difficulty with ambulation CT head no acute intracranial abnormality C-spine CT: No acute cervical fracture Fall precautions PT/OT consult pending CK <500 on admission and no PADMA, will repeat--again could be 2/2 underlying MELAS, but will ensure fluids if concern for uptrend/rhabdo component Hyperglycemia DM I A1c: 8.2 on 01/09/2024 Unclear if patient has been giving herself insulin at home recently Glucose 371 in ER. VBG pH WNL Transitioned from insulin drip for hyperglycemia There was no concern for DKA, insulin drip to aid given increasing hyperglycemia and close monitor in DMTI -Basal bolus per aid from glycemic pharmacy Anion Gap Metabolic acidosis *resolved -likely with elevated lactic acid, though improving Dispo: Pt on comfort measures, goal to get home with hospice Admission and Anticipated Discharge Date Admission Date: February 21, 2024 Subjective Discussion with son, pt transitioned to comfort measures today. Working with ROSA M manuel et her home with hospice. Review of Systems Review of Systems: All systems reviewed & are unremarkable except as noted in Subjective Physical Exam Physical Exam: General: sleeping Psych: mood and affect could not be determined HEENT: NC/AT CV: RRR Resp: no increased effort of breathing Abdomen: Soft, nontender, nondistended Extremities: No edema in lower extremities bilaterally. Results & Data Results & Data Vital Signs (Past 12 Hours) Vital Signs Temp Pulse Pulse Pulse Resp BP BP 02/28/24 09:42 95 H 02/28/24 09:25 98 H 102/68 02/28/24 09:13 98 H 102/68 02/28/24 08:30 02/28/24 07:39 100 H 02/28/24 07:32 36.3 C L 96 H 16 102/68 02/28/24 06:32 95 H 109/67 02/28/24 03:05 36.4 C L 93 H 17 02/28/24 01:30 88 96/61 L BP Pulse Ox O2 Del Method 02/28/24 09:42 02/28/24 09:25 02/28/24 09:13 02/28/24 08:30 Room Air 02/28/24 07:39 02/28/24 07:32 93 Room Air 02/28/24 06:32 02/28/24 03:05 98/64 L 95 Room Air 02/28/24 01:30 (2) Fall Encounter type: initial encounter Qualified Code(s): W19.XXXA - Unspecified fall, initial encounter (3) AMS (altered mental status) Altered mental status type: delirium Qualified Code(s): R41.0 - Disorientation, unspecified
[2024-02-28 12:00] LABS: ANTI-Xa, UFH(UnfractionatedHep 0.24 IU/ml (0.3-0.7)
[2024-02-28] MEDS: MoRPHine SULFATE 2 MG/ML CARP IV PRN (15:20)
[2024-02-29 07:47] LABS: Hematocrit (blood only) 40.2 % (37.0-47.0); Hemoglobin 12.9 g/dl (12.0-16.0); Mean Corpuscular Hemoglobin 25.5 pg (25.0-34.0); Mean Corpuscular Hgb Conc 32.1 g/dL (32.0-36.0); Mean Corpuscular Volume 79.4 fL (80.0-100.0); Mean Platelet Volume 12.3 fL (9.4-12.4); Nucleated RBC # (auto) 0.46 K/uL (0.00-0.12); Nucleated RBC % (auto) 4.6 %; Platelet Count 200 K/uL (130-400); RDW Coefficient of Variation 19.1 % (11.5-14.5); RDW Standard Deviation 46.5 fL (36.4-46.3); Red Blood Count 5.06 M/uL (4.20-5.40); White Blood Count 10.04 K/ul (4.8-10.8)
[2024-02-29 07:55] LABS: Albumin Globulin Ratio 1.4 (0.9-2); Albumin Level 3.3 gm/dl (3.4-5.0); BUN Creatinine Ratio 51.5 (10-20); Bilirubin,Total 1.2 mg/dl (0.2-1.0); Calcium 8.9 mg/dl (8.6-10.3); Est GFR (African American) 65.1 ml/min; Est GFR (Non-African American) 56.2 ml/min; Globulin 2.3 gm/dl (2.5-4.0); Phosphorus 3.4 mg/dl (2.5-4.9); Total Protein 5.6 gm/dl (6.0-8.3)
--- NOTE | 2024-03-01 12:59 | Hospitalist Progress Note ---
Date of Service March 01, 2024 Assessment & Plan (1) Acute on chronic heart failure with reduced ejection fraction and diastolic dysfunction: (2) Fall: (3) AMS (altered mental status): (4) Cellulitis of foot: (5) Elevated troponin: (6) Hyperglycemia: (7) Type 1 diabetes mellitus: (8) CAD (coronary artery disease): (9) MELAS (mitochondrial encephalopathy, lactic acidosis and stroke-like episodes): (10) H/O: stroke with residual effects: (11) Hypertension: Plan: Ms. Chavez is a 68-year-old female with past med history significant for type 1 diabetes, diabetic polyneuropathy, hyperlipidemia, chronic rhinitis, CAD s/p stent, hypertension, history of CVA, aphasia poststroke, Schatzki"s ring, Mnire's disease,MELAS, cochlear implant in place, was recently in the hospital for acute CHF in 12/2023 who is being admitted for acute on chronic encephal opathy as well as concern for acute on chronic heart failure exacerbation. Son agreeable to comfort measures and home with hospice on 02/28/24 Per previous provider with Addendum: Patient cried in pain when touching bilateral feet on admission. Patient rolling head in pain, with near flaccid forward flexion. Pain in lower extremities likely multifactorial given large laceration of right foot with thrombosis. Foot XR from day prior didn't reveal any rigoberto involvement, which is along the lines of the negative ESR/CRP. Labs consistent with volume overload, however, lactic acidosis initially improved with diuresis notably increased with subsequent attempts. Continued improvement--patient feeding self and attempting to communicate. Long conversation with patient's brother and sister at bedside, with plans to discuss code status with son/POA today regarding code status/dispo planning. Patient's mentation is waxing and waning. Palliative Care was consulted. Family discussion on 02/25, son to discuss hospice with family members at home and update Case management on 02/27/24. Son contacted on 02/26 at about 9:30AM, noted he had not yet spoken to family, hoping to do that later today. On 02/27, son agreeable to comfort measures transition with goal for home with hospice. Pt was being treated for the following, per previous provider with addendum: Gross Hematuria Urology evaluated, urine more clear, hgb stable. Can continue Heparin "pericystic infilitration" noted on imaging, UA without infection Plan for OP follow up Acute on Chronic Heart failure with reduced EF Ischemic Cardiomyopathy s/p [facility], diffuse CAD Recurrent angina history Elevated Troponin, possibly demand ischemia iso tachycardia/acute illness/HF exacerbation 12/29/2023 revealed severe hypokinesis to akinesis of the basal and mid inferior wall and inferoseptum with [id number] diffuse hypokinesis noted otherwise, LVEF 35-40%. Moderate to severe mitral regurgitation observed as well as tricuspid regurgitation and a moderate-sized left pleural effusion BNP: 1097 Troponin: 138-->125--> 200 (H/O elevated troponins during prior admissions in similar range) CXR: Interval progression of the pulmonary edema with small bilateral pleural effusions EKG: appears to be sinus tachycardia, remains sinus tachy at this time In ER given 40 mg Lasix IV, received additional lasix this am s/p IV lasix on 02/22 Monitor I's and O's, daily weights Monitor on telemetry Cardiology consult, will appreciate recs Patient tolerating PO, encourage Metoprolol 25mg BID PO, liberalized holding parameters to ensure administration -Metoprolol 2.5mg q4h if not PO Hypomagnesemia Hypokalemia Replace aggressively and repeat BMP at 1500 Difficulty encountered with intermittent PO and discomfort with IV site Difficulty trying to replace lytes given intermittent refusal for PO intake and caustic nature of IV Acute metabolic encephalopathy, likely multifactorial *improving MELAS Elevated lactic acidosis Prior left MCA infarction In ER T: 34.3 C rectal, P: 119, BP 109/94, 96% on room air. Upon reassessment T: 35.8 C rectally with Sumit hugger on. P: 117, BP 126/83, R: 20, 96% on room air Lactate: 6.6-->4.9-->7.9 CT Head: no acute intracranial abnormality UA: ?possible UTI vs contamination Urine culture NGTD Blood cultures 1/4 +, likely contaminate, Trend lactate, holding fast Unclear if lactate elevated from MELAS, CHF or underlying infection -Check abd/pelvis for source - constipation/fecal retention, bowel regimen below Continue empiric coverage at this time with Zosyn -MRSA nare negative, discontinue Vanc Monitor for delirium Neurology consult for guidance on MELAS optimization -TSH WNL -B12, folate WNL Encephalopathy likely 2/2 constipation, MSSA cellulitis, HF---continue management Constipation/fecal retention CT ABD/P gastric mucosa appears hyperemic. There is mild colonic fecal retention. s/p suppository Docusate BID Protonix daily Acute thrombus in right tibial vein, DVT BLE foot wounds with signs of venous insufficiency Cellulitis -Heparin drip in interim -Wound consult -Duplex negative for arterial, doppler with thrombus -ESR 5, CRP 2.45 -Broad coverage empirically while infectious work up pends, plan to d/c vanc -Given MSSA on BLE and notable improvement in erythema, will continue course with Cefazolin Coag Negative Staph bacteria, Positive blood culture -Likely contaminate 1/4 Continue to monitor Microcytosis MCV notably 76 this morning, and low since admission---iron studies ordered Iron 27, ferritin 39 Venofer 200mg x 3 doses planned, today 3/3 Transaminitis -Downtrending, potentially congestive v related to ?infection -Repeat CMP in am -No localizing symptoms Small bilateral pleural effusions -recent thoracentesis on 01/01/2024, no large accumulations that seem warranting procedure -monitor fluid status and oxygenation s/p IV lasix again on 02/22 Mechanical Fall Ambulatory dysfunction Elevated CK *resolved Unwitnessed fall reported today. Reported progressive difficulty with ambulation CT head no acute intracranial abnormality C-spine CT: No acute cervical fracture Fall precautions PT/OT consult pending CK <500 on admission and no PADMA, will repeat--again could be 2/2 underlying MELAS, but will ensure fluids if concern for uptrend/rhabdo component Hyperglycemia DM I A1c: 8.2 on 01/09/2024 Unclear if patient has been giving herself insulin at home recently Glucose 371 in ER. VBG pH WNL Transitioned from insulin drip for hyperglycemia There was no concern for DKA, insulin drip to aid given increasing hyperglycemia and close monitor in DMTI -Basal bolus per aid from glycemic pharmacy Anion Gap Metabolic acidosis *resolved -likely with elevated lactic acid, though improving Dispo: Pt currently on comfort measures, goal to get home with hospice Admission and Anticipated Discharge Date Admission Date: February 21, 2024 Subjective pt seen laying in bed. Resting comfortably, her mouth is open Review of Systems Review of Systems: Unobtainable due to cognitive status Physical Exam Physical Exam: Psych: mood and affect could not be determined HEENT: NC/AT Resp: no increased effort of breathing Results & Data Results & Data Vital Signs (Past 12 Hours) Vital Signs O2 Del Method 03/01/24 07:50 Room Air (2) Fall Encounter type: initial encounter Qualified Code(s): W19.XXXA - Unspecified fall, initial encounter (3) AMS (altered mental status) Altered mental status type: delirium Qualified Code(s): R41.0 - Disorientation, unspecified
[2024-03-02] MEDS ORDERED: LORazepam 1 MG TAB PO PRN (09:57)
[2024-03-02] MEDS ORDERED: MoRPHine SULFATE 10 MG/0.5 ML UDP PO PRN (09:58)
[2024-03-02] MEDS: MoRPHine SULFATE 2 MG/ML CARP IV PRN (10:14)
[2024-03-02] MEDS: LORazepam 1 MG in SYRINGE 0.5 ML IV PRN (17:30)
--- NOTE | 2024-03-03 12:34 | Discharge Summary ---
Discharge Summary Date of Service March 03, 2024 Notes For Next Care Provider Pt went home with hospice services Medication Changes From Visit Pt went home with hospice services Admission HPI Per Admitting Provider Patient is 68-year-old female with PMH type 1 diabetes, diabetic polyneuropathy, hyperlipidemia, chronic rhinitis, CAD s/p stent, hypertension, history of CVA, aphasia poststroke, Schatzki"s ring, Mnire's disease,MELAS, cochlear implant in place, was recently in the hospital for acute CHF and pleural effusions presented to ER after fall. History obtained from patient's son, inpatient and outpatient chart review. Recent recurrent hospitalizations in December 2023 for acute on chronic heart failure. Unable to obtain history from patient as difficult to understand patient. Spoke with patient's son who states patient has had progressive decline since the previous admissions that is more confused than her baseline. Having trouble walking with her walker. At baseline patient hard of hearing and has aphasia. Son states speech has worsened and hard to understand and she is more confused. States had unwitnessed fall today. Son states he was downstairs and patient was upstairs and son heard patient talking but couldn't understand her so went upstairs and found her lying on floor. States her speech seemed to be how it was the past couple of days. Patient son states patient was was taking care of her own insulin and medications however recently have noticed patient having trouble with this. Patient previously able to assist in ADLs and not having trouble with this as well. Son reports patient eats regular diet and has not noted any choking. Son states did not take her pills today, he is unsure if she took her insulin. Son reports wound to right foot and left foot. 1-2 weeks ago thought area was getting more red so took to urgent care and was started on Keflex x 7 days. Son is unsure if area looks improved or worse. Patient's son feels swelling in legs is "about the same". He is unaware of any vomiting or diarrhea, coughing, choking episodes. States is always cold and usually is under a heated blanket. Denies noted fevers. Admission Exam Per Admitting Provider GENERAL APPEARANCE: AxOx1, distressed, encephalopathic woman HEENT: NC, AT. MMM. EOMI, clear conjunctiva, oropharynx clear. NECK: JVD++ HEART: Normal rate and regular rhythm, difficult to appreciate ,JOSE LUNGS: +Crackles in biabasilar areas ABDOMEN: Soft, nontender, nondistended with good bowel sounds heard. BACK: No CVAT, no obvious deformity. EXTREMITIES: bilateral pedal edema NEUROLOGICAL: Grossly nonfocal. however alert but not following commands Skin: bilateral aashish discoloration of lower extremity forefeet unable to palpate pulse 2/2 pain/edema, large laceration from right second digit extending to 5th digit of RLE---no bleeding, no clear superimposed infection/drainage, left LE with wounds as well Principal Dx & Hospital Course #1 = Principal Diagnosis (1) Acute on chronic heart failure with reduced ejection fraction and diastolic dysfunction: (2) Fall: (3) AMS (altered mental status): (4) Cellulitis of foot: (5) Elevated troponin: (6) Hyperglycemia: (7) Type 1 diabetes mellitus: (8) CAD (coronary artery disease): (9) MELAS (mitochondrial encephalopathy, lactic acidosis and stroke-like episodes): (10) H/O: stroke with residual effects: (11) Hypertension: Ms. Chavez is a 68-year-old female with past med history significant for type 1 diabetes, diabetic polyneuropathy, hyperlipidemia, chronic rhinitis, CAD s/p stent, hypertension, history of CVA, aphasia poststroke, Schatzki"s ring, Mnire's disease,MELAS, cochlear implant in place, was recently in the hospital for acute CHF in 12/2023 who is being admitted for acute on chronic encephalo solange as well as concern for acute on chronic heart failure exacerbation. Pt was transitioned to comfort measures on 02/28/24 and was discharged home with home hospice services. Per admitting provider with Addendum: Patient cried in pain when touching bilateral feet on admission. Patient rolling head in pain, with near flaccid forward flexion. Pain in lower extremities likely multifactorial given large laceration of right foot with thrombosis. Foot XR from day prior didn't reveal any rigoberto involvement, which is along the lines of the negative ESR/CRP. Labs consistent with volume overload, however, lactic acidosis initially improved with diuresis notably increased with subsequent attempts. Long conversation with patient's brother and sister at bedside, with plans to discuss code status with son/POA regarding code status/dispo planning. Patient's mentation was waxing and waning. Palliative Care was consulted. Family discussion on 02/25, son to discuss hospice with family members at home and update Case management on 02/27/24. Son contacted on 02/26 at about 9:30AM, noted he had not yet spoken to family, hoping to do that later. On 02/27, son agreeable to comfort measures transition with goal for home with hospice. Pt was being treated for the following, per previous provider with addendum: Acute on Chronic Heart failure with reduced EF Ischemic Cardiomyopathy s/p [facility] 2019, diffuse CAD Recurrent angina history Elevated Troponin, possibly demand ischemia iso tachycardia/acute illness/HF exacerbation 12/29/2023 revealed severe hypokinesis to akinesis of the basal and mid inferior wall and inferoseptum with [id number] diffuse hypokinesis noted otherwise, LVEF 35-40%. Moderate to severe mitral regurgitation observed as well as tricuspid regurgitation and a moderate-sized left pleural effusion BNP: 1097 Troponin: 138-->125--> 200 (H/O elevated troponins during prior admissions in similar range) CXR: Interval progression of the pulmonary edema with small bilateral pleural effusions EKG: appears to be sinus tachycardia, remains sinus tachy at this time In ER given 40 mg Lasix IV, received additional lasix this time Cardiology was consulted. Hypomagnesemia Hypokalemia Replaced aggressively Difficulty encountered with intermittent PO and discomfort with IV site Difficulty trying to replace lytes given intermittent refusal for PO intake and caustic nature of IV Acute metabolic encephalopathy, likely multifactorial *improving MELAS Elevated lactic acidosis Prior left MCA infarction In ER T: 34.3 C rectal, P: 119, BP 109/94, 96% on room air. Upon reassessment T: 35.8 C rectally with Sumit hugger on. P: 117, BP 126/83, R: 20, 96% on room air Lactate: 6.6-->4.9-->7.9 CT Head: no acute intracranial abnormality UA: ?possible UTI vs contamination Urine culture NGTD Blood cultures 1/4 +, likely contaminate, Trended lactate, holding fast Unclear if lactate elevated from MELAS, CHF or underlying infection -Check abd/pelvis for source - constipation/fecal retention, bowel regimen below Continued empiric coverage with Zosyn -MRSA nare negative, discontinued Vanc Monitored for delirium Neurology consulted for guidance on MELAS optimization -TSH WNL -B12, folate WNL Encephalopathy likely 2/2 constipation, MSSA cellulitis, HF---continued management Gross Hematuria Urology evaluated, urine more clear, hgb stable. Can continue Heparin "pericystic infiltration" noted on imaging, UA without infection Constipation/fecal retention CT ABD/P gastric mucosa appears hyperemic. There is mild colonic fecal retention. s/p suppository Docusate BID Protonix daily Acute thrombus in right tibial vein, DVT BLE foot wounds with signs of venous insufficiency Cellulitis -Heparin drip -Wound consult -Duplex negative for arterial, doppler with thrombus -ESR 5, CRP 2.45 -Broad coverage empirically, plan to d/c vanc -Given MSSA on BLE and notable improvement in erythema, continued course wi Cefazolin Coag Negative Staph bacteria, Positive blood culture -Likely contaminate 1/4 Microcytosis MCV notably 76 and low since admission---iron studies ordered Iron 27, ferritin 39 Venofer 200mg x 3 doses planned on 01/25 Transaminitis -Downtrending, potentially congestive v related to ?infection -No localizing symptoms Small bilateral pleural effusions -recent thoracentesis on 01/01/2024, no large accumulations that seem warranting procedure -monitor fluid status and oxygenation s/p IV lasix again on 02/22 Mechanical Fall Ambulatory dysfunction Elevated CK *resolved Unwitnessed fall reported today. Reported progressive difficulty with ambulation CT head no acute intracranial abnormality C-spine CT: No acute cervical fracture Fall precautions PT/OT CK <500 on admission and no PADMA, could be 2/2 underlying MELAS Hyperglycemia DM I A1c: 8.2 on 01/09/2024 Unclear if patient has been giving herself insulin at home recently Glucose 371 in ER. VBG pH WNL Transitioned from insulin drip for hyperglycemia There was no concern for DKA, insulin drip to aid given increasing hyperglycemia and close monitor in DMTI -Basal bolus per aid from glycemic pharmacy Anion Gap Metabolic acidosis *resolved -likely with elevated lactic acid, though improving Pt was discharged home with hospice services. Discharge Exam Psych: mood and affect could not be determined HEENT: NC/AT Resp: no increased effort of breathing Hospital Stay Data Consultations 02/21/24 18:13 ED Decision to Admit Stat 02/21/24 20:59 Consult Cardiology Routine 02/22/24 08:10 Consult Neurology Routine 02/23/24 13:17 Consult Urology Routine 02/25/24 07:14 Consult Palliative Care Routine Diagnostic Imagining Performed 02/21/24 15:31 CT cervical spine wo con Stat CT head/brain wo con Stat 02/21/24 18:47 US arterial duplex LE BI Stat US venous doppler LE BI Stat 02/22/24 15:30 CT head/brain wo con Routine 02/23/24 07:36 CT abd pelvis IV con only Routine Discharge Instructions Given to Patient (Per Discharging Provider) Ms Chavez, You are being discharged home with hospice services. You care will be taken over by the hospice provider. Please keep close follow up with your provider after discharge. It was a pleasure taking care of you while you were here. Total Time Total Time Spent Total Time Spent (In Minutes): Chest X-Ray 02/21/24 15:30 XR chest 1V portable HISTORY: weakness COMPARISON: Chest 01/12/2024. FINDINGS: No pneumothorax. The heart remains enlarged. There are small bilateral pleural effusions with progressive perihilar interstitial/vascular thickening consistent with pulmonary edema. Left basilar linear densities favor subsegmental atelectasis. There are calcifications within the aortic knob. No acute fractures. IMPRESSION: Interval progression of the pulmonary edema with small bilateral pleural effusions. ACT 112: Negative or not required by law. Electronically signed by: Caleb Pace M.D. 02/21/2024 4:[address] 02/21/24 15:[address] DOSE: HISTORY: Neck pain. fall TECHNIQUE: Multiaxial CT images of the cervical spine were performed and reformatted in the sagittal and coronal plane without the use of contrast. A dose lowering technique was utilized adhering to the principles of ALARA. COMPARISON: None. FINDINGS: No fractures. No subluxation. Prevertebral soft tissues and the C1-C2 interval are intact. No pneumothorax. Posterior fusion defect at C1. Left cochlear implant with a few opacified left mastoid air cells. Interlobular sept al thickening at the lung apices consistent with pulmonary edema. There are bilateral pleural effusions. Moderate facet degenerative changes within the cervical spine. Severe disc space narrowing at C6-C7 with endplate osteophytes. IMPRESSION: 1. No fractures within the cervical spine. 2. Pulmonary edema and bilateral pleural effusions. ACT 112: Negative or not required by law. Electronically signed by: Caleb Pace M.D. 02/21/2024 4:[address] 02/21/24 15:31 CT SCAN OF THE BRAIN WITHOUT IV CONTRAST CLINICAL HISTORY: Change in mental status. COMPARISON STUDY: CT of the brain dated 07/23/2022. TECHNIQUE: Unenhanced axial CT scan of the brain is performed from the vertex to the skull base. A dose lowering technique was utilized adhering to the principles of ALARA. There is streak artifact from electronic device along the left posterior convexity. There is also mild motion artifact. CT DOSE: 1075.27 mGy.cm FINDINGS: Brain parenchyma: There is age-advanced involutional change noting moderate confluent subcortical and periventricular microangiopathic disease. There is no hemorrhage, mass effect, or evidence of acute territorial ischemia by CT criteria. Mineralization is noted in the basal ganglia. A focus of left temporal encephalomalacia is consistent with a remote insult. Alcantara-white matter differentiation is preserved. No extra-axial fluid collection is seen. Ventricles, sulci, cisterns: Prominent secondary to involutional change. Intracranial vasculature: There is atherosclerotic calcification of the [place] carotid and vertebral artery. Calvarium: Unremarkable. Sinuses and mastoids: The visualized paranasal sinuses are clear. There is postoperative change seen in left mastoid air cells with a left mastoid effusion. The right mastoid air cells are well pneumatized. Orbits: The bony orbits are grossly intact. IMPRESSION: There is no hemorrhage, mass effect, or evidence of acute territorial ischemia by CT criteria. ACT 112: Negative or not required by law. Electronically signed by: Wilbert Lee M.D. 02/21/2024 4:41 PM Duplex Scan Lower Extremity Artery 02/21/24 18:47 Exam(s): US ARTERIAL BILATERAL LOWER EXTREMITIES EXAM: US Duplex Bilateral Lower Extremities Arteries CLINICAL HISTORY: Reason for exam: r/o obstruction. TECHNIQUE: Real-time duplex ultrasound scan of the bilateral lower extremity arteries integrating B-mode two-dimensional vascular structure, Doppler spectral analysis and color flow Doppler imaging. COMPARISON: No relevant prior studies available. FINDINGS: Right common femoral artery: No acute findings. No occlusion or significant stenosis on color flow and spectral Doppler imaging. Normal waveform. Right superficial femoral artery: No acute findings. No occlusion or significant stenosis on color flow and spectral Doppler imaging. Normal waveform. Right popliteal artery: No acute findings. No occlusion or significant stenosis on color flow and spectral Doppler imaging. Normal waveform. Right calf/foot arteries: No acute findings. No occlusion or significant stenosis on color flow and spectral Doppler imaging. Normal waveform. Left common femoral artery: No acute findings. No occlusion or significant stenosis on color flow and spectral Doppler imaging. Normal waveform. Left superficial femoral artery: No acute findings. No occlusion or significant stenosis on color flow and spectral Doppler imaging. Normal waveform. Left popliteal artery: No acute findings. No occlusion or significant stenosis on color flow and spectral Doppler imaging. Normal waveform. Left calf/foot arteries: No acute findings. No occlusion or significant stenosis on color flow and spectral Doppler imaging. Normal waveform. Soft tissues: Unremarkable. IMPRESSION: Negative bilateral lower extremity duplex arterial ultrasound. No evidence of arterial insufficiency. No focal stenosis identified. Electronically signed by: Stevie Doty MD 02/22/24 00:12 AM Venous Doppler Study 02/21/24 18:47 CR Exam(s): US VENOUS BILATERAL LOWER EXTREMITIES EXAM: US Duplex Bilateral Lower Extremities Veins CLINICAL HISTORY: Reason for exam: r/o dvt. TECHNIQUE: Real-time duplex ultrasound scan of the bilateral lower extremity veins integrating B-mode two-dimensional vascular structure, Doppler spectral analysis, color flow Doppler imaging and compression. COMPARISON: No relevant prior studies available. FINDINGS: Right deep veins: There is isoechoic thrombus within nondilated the peroneal veins and posterior tibial vein. Thrombus in the right posterior tibial vein is occlusive and could be acute. The remaining deep venous structures are patent and compressible. Right superficial veins: Unremarkable. No thrombus in the visualized right great saphenous vein. Left deep veins: See above. Left superficial veins: Unremarkable. No thrombus in the visualized left great saphenous vein. Soft tissues: No acute findings. No popliteal cyst. IMPRESSION: 1. Thrombus in the right posterior tibial vein is occlusive and could be acute. The remaining both lower extremity venous structures are patent and compressible. 2. There is isoechoic thrombus within nondilated the peroneal veins and posterior tibial vein. Communications: Call Doctor DVT acute, progressing Electronically signed by: Stevie Doty MD 02/22/24 00:02 AM Foot X-Ray 02/22/24 14:11 RIGHT FOOT 2 VIEWS CLINICAL HISTORY: Fall. Right foot pain. Swelling. FINDINGS: AP and lateral views of the right foot are compared to study dated . The skeletal structures are osteopenic. No fracture is seen. Mild osteoarthritic change is seen throughout the foot, greatest at the first metatarsophalangeal joint. There are dorsal and plantar heel spurs. Mild soft tissue swelling is noted. Question a small wound along the dorsum of the forefoot on the lateral projection. No radiodense foreign body is seen. There is atherosclerotic calcification of the regional arteries. IMPRESSION: 1. Soft tissue swelling with no acute bony abnormality identified. 2. Question a small wound/ulcer along the dorsal aspect of the forefoot. Corre late clinically. Electronically signed by: Wilbert Lee M.D. 02/22/2024 3:[address] 02/22/24 15:30 CT SCAN OF THE BRAIN WITHOUT IV CONTRAST CLINICAL HISTORY: Encephalopathy. COMPARISON STUDY: CT of the brain dated 02/21/2024. TECHNIQUE: Unenhanced axial CT scan of the brain is performed from the vertex to the skull base. A dose lowering technique was utilized adhering to the principles of ALARA. There is streak artifact from an electronic device along the left posterior convexity. There is also mild motion artifact. CT DOSE: 547.75 mGy.cm FINDINGS: Brain parenchyma: There is age-advanced involutional change noting moderate confluent subcortical and periventricular microangiopathic disease. There is no hemorrhage, mass effect, or evidence of acute territorial ischemia by CT criteria. Mineralization is noted in the basal ganglia. A focus of left temporal encephalomalacia is consistent with a remote insult. Alcantara-white matter differentiation is preserved. No extra-axial fluid collection is seen. Ventricles, sulci, cisterns: Prominent secondary to involutional change. Intracranial vasculature: There is atherosclerotic calcification of the cavernous carotid and vertebral artery. Calvarium: Unremarkable. Sinuses and mastoids: The visualized paranasal sinuses are clear. There is postoperative change seen in left mastoid air cells with a left mastoid effusion. The right mastoid air cells are well pneumatized. Orbits: The bony orbits are grossly intact. IMPRESSION: There is no hemorrhage, mass effect, or evidence of acute territorial ischemia by CT criteria. ACT 112: Negative or not required by law. Electronically signed by: Wilbert Lee M.D. 02/22/2024 4:42 PM Abdomen/Pelvis CT 02/23/24 07:36 CT SCAN OF THE ABDOMEN AND PELVIS WITH IV CONTRAST CLINICAL HISTORY: Elevated hepatic transaminases. COMPARISON STUDY: Abdominal ultrasound dated 12/29/2023. TECHNIQUE: Following the IV administration of 92 cc of Optiray 320, CT scan of the abdomen and pelvis is performed from the lung bases to the proximal femora. Images are reviewed in the axial, sagittal, and coronal planes. IV contrast was administered without complication. A dose lowering technique was utilized adhering to the principles of ALARA. The examination is degraded by motion artifact, as well as by streak artifact from the arms which could not be elevated above the abdomen. CT DOSE: 743.23 mGy.cm FINDINGS: Lung bases: The heart is enlarged and without pericardial effusion. The coronary arteries are densely calcified. There are moderate pleural effusions with dependent consolidation. Liver: The contrast-enhanced liver is markedly heterogeneous and shows morphologic changes of cirrhosis. There is mild nodularity of the hepatic surface contour. There is no intrahepatic biliary ductal dilatation. The hepatic veins and portal veins are patent. Gallbladder: Surgically absent noting clips in the gallbladder fossa. Spleen: Normal in size and attenuation. Pancreas: The pancreas is mildly atrophic. Parenchymal calcifications indicate chronic pancreatitis. Adrenal glands: Unremarkable. Kidneys: The contrast enhanced kidneys are normal in size and without hydronephrosis. The kidneys enhance symmetrically. Abdominal vasculature: The abdominal aorta is normal in course and caliber noting mild to moderate atherosclerotic calcification. Bowel: The gastric mucosa appears hyperemic. There is mild colonic fecal retention. No bowel obstruction is seen. A structure that likely represents a normal appendix is seen on image #[id number]. Peritoneum: There is trace perihepatic and pelvic ascites. No intraperitoneal free air is identified. Lymphadenopathy: None. Pelvic viscera: The bladder is decompressed around a Hess catheter. There is pericystic infiltration the uterus is surgically absent. No adnexal lesion is seen. Skeletal structures: The skeletal structures are osteopenic. There is mild lumbosacral spondylosis. Sclerotic change is seen in the sacroiliac joints. No lytic or blastic lesions are seen. Soft tissues: There is anasarca of the body wall. IMPRESSION: 1. The liver is normal in size and markedly heterogeneous in attenuation. Mild nodularity of the surface contour suggests morphologic change of cirrhosis. 2. There are moderate pleural effusions with dependent consolidation. 3. Anasarca and trace abdominopelvic ascites indicate fluid overload. 4. The gastric mucosa appears hyperemic. Correlate clinically for evidence of gastritis. If warranted this could be further assessed with endoscopy. 5. The bladder is decompressed around a Hess catheter and there is pericystic infiltration. Correlate with clinical findings and urinalysis. 6. Additional findings as above. ACT 112: Negative or not required by law. Electronically signed by: Wilbert Lee M.D. 02/23/2024 11:23 AM
--- NOTE | 2024-03-03 12:49 | Palliative Care Progress Note ---
Date of Service March 02, 2024 late entry note for visit 03/02/24 at 0940am Assessment & Plan (1) Palliative care by specialist: (2) Weakness generalized: (3) Falls frequently: (4) Cognitive and behavioral changes: (5) Need for comfort care: Plan * Remains on [employer], awaiting home with hospice dc tomorrow per CM notes * No acute issues today, prn meds available for sx mg needs Thank you for allowing us to participate in the ongoing care of this patient. Please don't hesitate to call or page with any additional concerns. Dr. Jemma Ervin DNP Director, Palliative Care Admission and Anticipated Discharge Date Admission Date: February 21, 2024 Subjective resting in bed, slightly agitated not interacting with me resp effort mild increase confused and sl agitated no family at bedside Review of Systems Review of Systems: Unobtainable due to cognitive status and Unobtainable due to reduced consciousness Physical Exam Physical Exam: Restless, unable to follow commands Slightly confused but does orient to name garbled speech bitemp wasting perrla resp effort increased with use of accessory muscles, there is conversational dyspnea tachy s1s2 scaphoid abdomen, BS+ generalized weakness skin is pale, cool Results & Data Vital Signs (Past 12 Hours) Vital Signs Temp Pulse Pulse Resp BP BP Pulse Ox 03/03/24 12:32 36.0 C L 93 H 101 H 17 114/77 98/64 L 95 PG Care Time/CCT Total # of Minutes Spent Total Time Spent: 60 Total Time Spent with Patient: Total time spent is greater than 50% in coordination of care (as documented) at patient's floor/unit and/or counseling patient: I spent 60 minutes overall addressing this case: 10 min in medical data review/discussion with referring provider(s) and/or preparation for the visit 25 min in direct interaction with the patient/exam 00 min in Advance Care Planning/Goals of Care discussions as detailed above in note (must be >16min) 10 min in subsequent review and synthesis of assessment and plan 15 min communicating with other providers regarding the patient's case: C[place] [address] SUB INP/OBS CARE 3/50MIN Patient Type Established History Comprehensive Exam Comprehensive Medical Decision Making High Complexity Diagnoses Palliative care by specialist Z51.5 Weakness generalized R53.1 Falls frequently R29.6 Cognitive and behavioral changes R41.89; R46.89 Need for comfort care
== END 2024-03-03 13:53 | disposition hospice, home (50) | DRG 291 ==
LOC: ED 14:48 → 2S 18:45 → SUATTDRO 18:45 → 2S 20:54 → 3W 02-28 11:13